=== PATIENT | male | born 1965 | race Caucasian/White ===

== ENCOUNTER → 2016-10-28 | Outpatient (CLI) | payer BC, OTHER ==
[~2016-10-28] MED LIST: CHOL400T PO; DEXL60CA4 PO; DOXE10CA PO; LISI-461 PO; SENN-61 PO; TRAM-10 PO
--- NOTE | 2016-10-28 09:56 | DIAGNOSTIC IMAGING REPORT ---
RIGHT SHOULDER MIN 2 VIEWS CLINICAL HISTORY: Right shoulder pain. No known injury. COMPARISON: Right shoulder radiographs May 09, 2016 FINDINGS: Incidental note is made of an anterior cervical spine fusion and a small sclerotic focus within the right humeral head. This is unchanged from exam of May 09, 2016 and likely reflects a bone island. There is a healed fracture of the posterior right seventh rib. No acute fracture or suspicious lesion is identified. There is moderate AC joint arthritis and mild glenohumeral joint arthritis. IMPRESSION: 1. 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 2. No acute fracture. Electronically signed by: Christopher Beverly M.D. 10/28/2016 9:54 AM
== END | disposition home or self-care (01) ==
LOC: C.RDSM 06:59
PROVIDERS: ATTEND Physical Medicine & Rehabilitation Sports Medicine
DX: M25.511 Pain in right shoulder (principal); M19.011 Primary osteoarthritis, right shoulder

== ENCOUNTER → 2016-12-10 | Outpatient (CLI) | payer BC, OTHER ==
[~2016-12-10] MED LIST changes: +MAGNEVIST IV PRN
--- NOTE | 2016-12-10 12:35 | DIAGNOSTIC IMAGING REPORT ---
FLUOROSCOPIC GUIDED RIGHT SHOULDER ARTHROGRAM FLUOROSCOPY TIME: 14 seconds HISTORY: Shoulder pain. RIGHT SHOULDER PAIN, IMPINGMENT SYNDROME Right PROCEDURE: After obtaining written informed consent, the patient was placed supine on the fluoroscopy table. A suitable site for needle insertion was marked using fluoroscopic guidance. The right shoulder was prepped and draped in the usual sterile fashion. 1% lidocaine was used for skin, subcutaneous and deep soft tissue anesthesia. Under intermittent fluoroscopic guidance, a 22 gauge 2.5 inch spinal needle was inserted into the left glenohumeral joint. A total of 14 cc of one-to-one mixture of dilute Magnevist (0.1 cc in 10 cc saline) and Optiray 300 were injected. The needle was then removed. There were no apparent complications. The patient was transported to for further imaging. IMPRESSION: Fluoroscopic-guided shoulder arthrogram without immediate complication. Total injected volume was 14 cc. MR portion of the examination will be dictated separately. Electronically signed by: Sha Valera M.D. 12/10/2016 12:33 PM Dictated Date/Time: 12/10/2016 12:33 PM
--- NOTE | 2016-12-10 13:03 | DIAGNOSTIC IMAGING REPORT ---
MR ARTHROGRAM OF THE RIGHT SHOULDER CLINICAL HISTORY: Right shoulder pain. COMPARISON STUDY: Radiographs of the right shoulder dated 10/28/16. TECHNIQUE: Following the intra-articular administration of gadolinium contrast, MR arthrogram of the right shoulder was performed utilizing various T1 and T2 weighted sequences in the axial, sagittal, coronal planes. The examination is degraded by motion artifact. FINDINGS: Rotator cuff: There is tendinopathy of the supraspinatous tendon. There is a full-thickness tear identified at the musculotendinous junction this is best seen on sagittal image #8 of 21. The tear measures 3.5 mm in AP diameter and length. There is also a full-thickness tear at the leading edge of the supraspinatus tendon. There is tendinopathy with high-grade partial-thickness tearing involving the infraspinatus tendon. A small full-thickness tear is suspected at the leading edge. There is tendinopathy of the subscapularis tendon which appears intact. Teres minor is normal. There is subacromial and subdeltoid bursal fluid. Productive degenerative changes identified at the acromioclavicular articulation. Biceps tendon: The long head of the biceps tendon is normal in signal intensity and located within the bicipital groove. The anchor is maintained. Labrum: There is a SLAP tear of the glenoid labrum. Shoulder joint: The joint space contains intra-articular contrast. The articular cartilage over the glenoid shows only mild thinning. Marrow edema is noted within the mid glenoid. A Hill-Sachs deformity is identified in the humeral head with associated marrow edema. Degenerative change with subchondral cyst formation is present in the greater tuberosity. Musculature and soft tissues: The musculature of the shoulder is normal in bulk and signal intensity. No atrophy is seen. IMPRESSION: 1. There is tendinopathy of the supraspinatous tendon. There are full-thickness tears seen at the musculotendinous junction as well as at the leading edge. No musculotendinous retraction is seen. 2. There is tendinopathy of the infraspinous tendon with a small full-thickness tear seen at the leading edge. 3. There is a SLAP tear of the glenoid labrum. 4. There is an age-indeterminate Hill-Sachs lesion in the humeral head with associated marrow edema and arthritic change. 5. Marrow edema is also identified in the glenoid. 6. Additional changes as above. Electronically signed by: Param Li M.D. 12/10/2016 1:02 PM Dictated Date/Time: 12/10/2016 12:53 PM
== END | disposition home or self-care (01) ==
LOC: C.MRIBC 10:55
PROVIDERS: ATTEND Physical Medicine & Rehabilitation Sports Medicine
DX: M75.41 Impingement syndrome of right shoulder (principal); M25.511 Pain in right shoulder; S43.431A Superior glenoid labrum lesion of right shoulder, initial encounter; S46.011A Strain of muscle(s) and tendon(s) of the rotator cuff of right shoulder, initial encounter; X58.XXXA Exposure to other specified factors, initial encounter

== ENCOUNTER → 2016-12-31 | Outpatient (CLI) | payer BC, OTHER ==
[~2016-12-31] MED LIST changes: -MAGNEVIST IV PRN
[2016-12-31 16:43] LABS: BASO % 0.9 %; BASO ABS # 0.07 K/uL (0-0.2); COMPLETE YES; IG% 0.1 %; LYMPH % 34.7 %; LYMPH ABS # 2.66 K/uL (1.2-3.4); MEAN CELL VOLUME 82.8 fL (80-100); MEAN CORPUSCULAR HEMOGLOBIN 27.8 pg (25-34); MEAN CORPUSCULAR HGB CONC 33.6 g/dl (32-36); MEAN PLATELET VOLUME 10.1 fL (7.4-10.4); NEUT % 51.3 %; PLATELET COUNT 291 K/uL (130-400); RED BLOOD COUNT 4.35 M/uL (4.7-6.1); WHITE BLOOD COUNT 7.67 K/uL (4.8-10.8)
[2016-12-31 17:05] LABS: BLOOD UREA NITROGEN 11 mg/dl (7-18); BUN/CREATININE RATIO 14.3 (10-20); CALCIUM 8.9 mg/dl (8.5-10.1); CARBON DIOXIDE 24 mmol/L (21-32); CHLORIDE 104 mmol/L (98-107); CREATININE 0.75 mg/dl (0.60-1.40); GLUCOSE 86 mg/dl (70-99); POTASSIUM 4.2 mmol/L (3.5-5.1); SODIUM 139 mmol/L (136-145)
== END | disposition home or self-care (01) ==
LOC: C.LAB1850 15:54
PROVIDERS: ATTEND Physical Medicine & Rehabilitation Sports Medicine
DX: M75.121 Complete rotator cuff tear or rupture of right shoulder, not specified as traumatic (principal)

== ENCOUNTER → 2016-12-31 | Outpatient (CLI) | payer BC, OTHER ==
--- NOTE | 2016-12-31 15:52 | DIAGNOSTIC IMAGING REPORT ---
TWO VIEW CHEST CLINICAL HISTORY: Preoperative examination. FINDINGS: PA and lateral chest radiographs are compared to study dated 09/12/2016 and correlated with chest CT dated 09/19/2015. The cardiomediastinal silhouette is unremarkable. Mild emphysematous change and chronic interstitial thickening are similar to previous. No airspace consolidation or pleural effusion is identified. There is no pneumothorax. The skeletal structures are osteopenic. Degenerative change is seen throughout the thoracic spine. Fusion hardware is noted in the lower cervical spine. Surgical clips are present in the upper abdomen. IMPRESSION: No active disease in the chest. Electronically signed by: Param Li M.D. 12/31/2016 3:50 PM Dictated Date/Time: 12/31/2016 3:49 PM
== END | disposition home or self-care (01) ==
LOC: C.RDSM 15:40
PROVIDERS: ATTEND Physical Medicine & Rehabilitation Sports Medicine
DX: M75.121 Complete rotator cuff tear or rupture of right shoulder, not specified as traumatic (principal)

== ENCOUNTER → 2017-01-14 | Day surgery (SDC) | payer BC, OTHER ==
[2017-01-03 12:28] VITALS: Ht 182.9 cm; Wt 79.5 kg
[~2017-01-14] VITALS: Ht 182.9 cm; Wt 79.5 kg
[~2017-01-14] MED LIST changes: +ATROPINE SULFATE 0.1 MG/ML 5ML SYR IV PRN; +CEFAZOLIN 2000 MG/60 ML D5W IV SCH; +DEXAMETHASONE SOD INJ 4 MG/ML VIAL IV PRN; +DEXAMETHASONE SOD INJ 4 MG/ML VIAL ONE; +EpHEDrine SULFATE INJ 50 MG/ML AMP IV PRN; +EpINEphrine INJ 1MG/ML AMP 1 MG/ML AMP ONE; +FENTANYL CITRATE INJ 50 MCG/1 ML 2 ML VIAL ONE; +GLYCOPYRROLATE INJ 0.2 MG/ML VIAL ONE; +KETOROLAC TROMETHAMINE 30 MG/ML VIAL IV. PRN; +LABETALOL HCL IV 5 MG/ML 20ML IV PRN; +LACTATED RINGER'S 1000ML 1,000 ML IV SCH; +LIDOCAINE HCL 1% MPF 2 ML VIAL ONE; +LIDOCAINE HCL 2% 2 ML VIAL (20MG/ML) ONE; +METOCLOPRAMIDE HCL INJ 5 MG/ML 2 ML VIAL IV PRN; +MIDAZOLAM HCL 1 MG/ML 2ML VIAL ONE; +MoRPHine SULFATE 10 MG/ML CARP/VIAL IV PRN; +ONDANSETRON INJ 2 MG/ML 2 ML VIAL IV PRN; +ONDANSETRON INJ 2 MG/ML 2 ML VIAL ONE; +OXYCODONE/ACETAMINOPHEN 5-325 TAB PO PRN; +PHENYLEPHRINE 100MCG/ML 5ML SYR IV PRN; +PHENYLEPHRINE HCL INJ 10 MG/ML VIAL ONE; +PROPOFOL IV EMULSION 10 MG/ML 20 ML VIAL IV ONE; +ROPIVACAINE 0.5% 5 MG/ML 30 ML VIAL ONE; +SODIUM CHLORIDE 0.9% 1000ML 1,000 ML IV SCH
--- NOTE | 2017-01-14 08:09 | History & Physical Bridge Note ---
H&P Re-Evaluation Bridge Note: I have examined the patient, reviewed the History & Physical and in the interval since the performance of the History & Physical I have noted the following changes of clinical significance: No changes noted
--- NOTE | 2017-01-14 08:10 | Discharge Instructions ---
Discharge Instructions Date of Service Jan 14, 2017. Visit Reason for Visit: Right Shoulder Rotator Cuff Tear Discharge Discharge Diagnosis / Problem: same Discharge Goals Goal(s): Decrease discomfort, Improve function Medications Stopped Medications Name(s): na Restart Stopped Medication(s): use scripts as directed Activity Recommendations Activity Limitations: as noted below Lifting Limitations: until after follow-up appointment Exercise/Sports Limitations: until after follow-up appointment May Resume Sexual Activity: when tolerated Shower/Bathe: keep incision dry Driving or Machine Use: Anesthesia The following are instructions to follow after "Shoulder Surgery" including, Acromioplasty, Rotator Cuff Repair and Instability Surgery ACTIVITY RECOMMENDATIONS: * Minimize activity after surgery. * No excessive walking, jogging, sports or laboring. * Return to activity is individualized depending on the patient and type of surgery. * Driving is not permitted until at least your first post operative visit. Please ask your doctor when it is safe to resume driving. * Expect increased discomfort with increased activity. Continue to ice the shoulder as needed. SCHOOL/WORK RECOMMENDATIONS: * You may return to sedentary work or school when you are feeling more comfortable. This is usually 3-7 days after surgery. MEDICATIONS: * You will have a prescription for pain medication and an anti-inflammatory medication after surgery. * Use the pain medication for severe pain and the anti-inflammatory for less severe pain. Once the pain medication has run out, try to use the anti-inflammatory medication. If this is not effective, contact the office for assistance. * The pain medication may cause nausea, constipation and drowsiness. You should see how they affect you before driving or similar activity. * The anti-inflammatory medication may cause stomach upset and bleeding. If this occurs let your doctor know immediately . * Take a stool softener like Colace or a laxative like Senokot to prevent constipation. DIET: * Resume previous diet. SPECIAL CARE: ICE: You have the option of an ice cooler, gel packs or ice bags. * If you have an ice cooler, refer to the instructions for that device. The ice cooler may be used continuously. * If you do not have an ice cooler, you will need to use ice bags or gel packs. Do not apply ice directly to the skin. Use a thin dressing or belen shirt between the skin and ice bag. Apply ice for 20-30 minutes and repeat every 2-4 hours. This is especially important for the first 7-10 days after surgery. Once the pain improves, use ice as needed. ELEVATION: * You may be more comfortable sleeping in an upright position. Use the sling to elevate your arm. DRESSING: * Your dressing will be changed at your first therapy appointment approximately 4-5 days after surgery. Band-aids, tape strips or gauze may be applied. You may then change your dressing daily. * Reapply dressing followed by the EBIce cooling pad (if chosen) and then the sling. * Always wash your hands prior to touching the incision area. * Once the stitches are removed, you may leave the wound open to air or cover with gauze. * Expect some bloody drainage for the first few days after surgery. * Leave the tape strips, if present, in place for 5-7 days. * Band-aids and gauze may be changed daily. * There may be a gauze pad in your armpit area. This can be changed daily or replaced by a dry washcloth. SLING/BRACE: * You will need to use a sling or brace after surgery. The length of time the sling is used is dependent upon the type of surgery performed. * Arthroscopic Acromioplasty requires use of the sling for 2-4 weeks for comfort. * Labral procedures and Rotator Cuff Repairs require use of the sling for a longer period of time. Please check with your doctor prior to discontinuing the sling. BATHING: * You may shower or sponge-bathe immediately after surgery. The post operative shoulder dressing is mostly water-tight. You may shower right over this dressing, but be reasonably careful not to get the gauze or incision wet. * Once the dressing has been changed on the fourth or fifth day after surgery, you may shower and get the incision wet. * Wash with regular soap and water. * Do not bathe (submerge the incision), soak, swim or use a hot tub until the incision is completely healed over with normal skin and the doctor has given the OK to proceed. * There is no need to apply any ointments, powders or salves to your incision. * Do not apply alcohol or hydrogen peroxide directly to the incision. * Diluted peroxide (50:50 mixture with sterile saline) may be used to clean dried blood from around the incision area. THERAPY: * You will begin therapy four or five days after surgery. * Organized therapy with the therapist is important for the first 2-4 months after surgery depending on the type of procedure. During that time you will attend therapy 1-3 times per week. * You will also need to do daily exercises for range of motion and strength as instructed. * Patients who have a Capsular Shift Procedure will need to abide by temporary range of motion limitations. * Patients having Rotator Cuff Surgery are not allowed to actively lift their arms until 4-6 weeks after surgery. * Please check with your doctor regarding appropriate motion restrictions. FOLLOW UP VISIT: * If not already scheduled, please call the office at to schedule a follow-up appointment for 10 days after surgery and monthly thereafter. . Post Anesthesia Instructions: If you have had General Anesthesia or IV Sedation: * Do not drive today. * Resume driving when surgeon permits. * Do not make important decisions or sign legal documents today. * Call surgeon for: 1. Temperature elevations greater than 101 degrees F. 2. Uncontrollable pain. 3. Excessive bleeding. 4. Persistent nausea and vomiting. 5. Medication intolerance (nausea, vomiting or rash). * For nausea and vomiting use only clear liquids such as: tea, soda, bouillon until nausea subsides, then gradually increase diet as tolerated. * If you have any concerns or questions, call your surgeon's office. If physician is unavailable and it is an emergency, call 911 or go to the nearest emergency room. . Diet Recommendations Recommended Home Diet: resume previous diet Procedures Procedures Performed: see op note Pending Studies Studies pending at discharge: no Medical Emergencies . Who to Call and When: Medical Emergencies: If at any time you feel your situation is an emergency, please call 911 immediately. . Non-Emergent Contact Non-Emergency issues call your: Specialist Call Non-Emergent contact if: temperature is above 101.5 . . "Provider Documentation" section prepared by Hiro Gomez.
--- NOTE | 2017-01-14 11:08 | [facility] Post Operative Brief Note ---
Immediate Operative Summary Operative Date Jan 14, 2017. Pre-Operative Diagnosis Right Shoulder Rotator Cuff Tear Post-Operative Diagnosis Same Procedure(s) Performed Right Shoulder Arthroscopic Rotator Cuff Repair, Subacromial Decompression Surgeon Dr. Gomez Grout Machine Operator Surgeon(s) Shlomo Sears PA-C Estimated Blood Loss trace Findings cuff tear /impingement/biceps tendonopathy with slap Fluids (cc crystalloids) 1200cc Specimens None Drains none Anesthesia LMA/block Complication(s) None Disposition Recovery Room / PACU
--- NOTE | 2017-01-14 11:45 | OPERATIVE REPORT ---
DATE OF OPERATION: 01/14/2017 SURGEON: Jason. BACK HAND: Buck Sears PA-C. No resident or fellow available. PREOPERATIVE DIAGNOSIS: Recurrent rotator cuff syndrome, right shoulder. POSTOPERATIVE DIAGNOSES: 1. Same. 2. Chronic biceps tendinopathy with large SLAP tear. 3. Impingement syndrome. OPERATION PERFORMED: 1. Exam under anesthesia. 2. Diagnostic arthroscopy. 3. Debridement of high grade PASTA lesion conversion to well full thickness tear, small and repair. 4. Biceps tenotomy. 5. Revision subacromial decompression. PERIOPERATIVE SITUATION: Medically cleared male with intractable shoulder pain with physical exam, x-ray and MRI scan consistent with tendinopathy, small tear of the rotator cuff, biceps SLAP type lesion and anterior labral degeneration. He has failed conservative management and would like to proceed with surgical treatment. He had a surgery done over a decade ago. OPERATION: The patient appropriately identified, site verified, consent verified, 2 grams of Ancef confirmed as being given. The shoulder was examined revealing no ligamentous instability. He was then carefully placed in a beach chair position and right upper extremity prepped and draped in usual routine fashion. A posterior portal made in the previous site 2 cm medial and inferior to posterolateral tip of the acromion joint entered without difficulty and anterior portal made off the edge of the AC joint. Inspection of the joint revealed significant biceps tenosynovitis and a large biceps anchor root type SLAP tear. This was all debrided. The biceps was markedly unstable, it was tenotomized and had that done on the opposite side and agreed to have that procedure done despite the cosmetic deformity. He did well with that and wanted to have the same thing done. This was completed. The remaining labrum was then contoured with the shaver and a thermal device. The rotator cuff was then inspected, the supraspinatus had a tear approximately a centimeter posterior to its most anterior margin, it was a high grade PASTA lesion and was debrided, marked with a suture. The remaining inspection of the joint and internally revealed no other pathology; some minor fraying here and there, but this was instantly debrided. Subacromial space was then entered. Some scarring was there apart from the prior procedure, this was carefully debrided and the suture identified. This area was then touched with a shaver completely and almost completely went into the remaining part of the tendon and then into the joint. This was then ellipticized and debrided creating about a centimeter tear was then mobilized nicely. The area of the attachment was then debrided to bone with a curette and a shaver. An accessory 2 portals were then made and using the scorpion the 2 sutures were placed in the tendon and a 5.5 anchor placed and secured the rotator cuff back down to the bone in an excellent fashion. The arm was then moved through a full range of motion and there was no additional mobility or tendon was identified. The remaining bursa was then resected, the CA ligament which was hypertrophic was released with thermal device and a revision acromioplasty performed in a modest fashion. The AC joint was left alone. The procedure was then terminated. All instruments and fluid removed. The portals closed with 3-0 nylon suture, dressed appropriately with Xeroform, 4 x 4 gauze, ABD pads and Ioban dressing. Estimated blood loss trace. Crystalloid 1200 mL. No DVT prophylaxis required. Overall prognosis for this is guarded based on history of comorbidities medically. I attest to the content of the Intraoperative Record and any orders documented therein. Any exceptions are noted below. CHANTELD
[2017-01-14] MEDS: FENTANYL CITRATE INJ 50 MCG/1 ML 2 ML VIAL IV PRN ×2 (11:48→11:58)
[2017-01-14 12:17] VITALS: TEMP 36.3
[2017-01-14 12:48] VITALS: BP 117/74; PULSE 86; O2SAT 98
--- NOTE | 2017-01-14 12:52 | Anesthesia Progress Nt - [facility] ---
Anesthesia Post Op Note Date & Time Jan 14, 2017 at 12:53 Vital Signs Pain Intensity: 3.0 Vital Signs Past 12 Hours Date Time Temp Pulse Resp B/P Pulse Ox O2 Delivery O2 Flow Rate FiO2 01/14/17 12:48 86 16 117/74 98 Room Air 01/14/17 12:17 36.3 73 16 120/76 96 Room Air 01/14/17 12:05 70 12 01/14/17 12:05 69 12 117/79 95 01/14/17 12:04 36.7 70 16 117/79 94 Room Air 01/14/17 12:00 71 17 01/14/17 12:00 72 17 116/83 95 01/14/17 11:55 69 12 121/77 94 01/14/17 11:55 69 12 01/14/17 11:50 71 15 91/88 99 01/14/17 11:50 70 15 01/14/17 11:45 73 14 01/14/17 11:45 73 14 120/76 99 01/14/17 11:40 70 14 100 01/14/17 11:40 70 14 01/14/17 11:39 116/74 01/14/17 11:38 67 11 100 01/14/17 11:38 67 11 01/14/17 11:34 107/68 01/14/17 11:33 66 11 01/14/17 11:33 66 11 100 01/14/17 11:29 111/69 01/14/17 11:28 68 10 01/14/17 11:28 68 10 100 01/14/17 11:24 121/74 01/14/17 11:23 36.6 80 16 124/80 99 Diffusion Mask 6 01/14/17 11:23 72 10 124/80 100 01/14/17 11:23 73 10 01/14/17 09:55 72 11 99 01/14/17 09:55 71 01/14/17 09:54 124/74 01/14/17 09:50 73 10 99 01/14/17 09:50 73 01/14/17 09:49 116/71 01/14/17 09:46 72 10 99 01/14/17 09:46 72 01/14/17 09:44 111/71 01/14/17 09:41 80 19 97 01/14/17 09:41 81 01/14/17 09:40 83 01/14/17 09:40 83 13 99 01/14/17 09:39 129/91 01/14/17 09:35 79 20 99 01/14/17 09:35 79 01/14/17 09:30 76 01/14/17 09:30 76 21 99 01/14/17 08:30 37.0 76 18 110/72 96 Room Air Notes Mental Status: alert / awake / arousable, participated in evaluation Pt Amnestic to Procedure: Yes Nausea / Vomiting: adequately controlled Pain: adequately controlled Airway Patency, RR, SpO2: stable & adequate BP & HR: stable & adequate Hydration State: stable & adequate Anesthetic Complications: no major complications apparent
--- NOTE | 2017-01-14 13:05 | OPERATIVE REPORT ---
DATE OF OPERATION: 01/14/2017 PREOPERATIVE DIAGNOSIS: Right shoulder rotator cuff tear. POSTOPERATIVE DIAGNOSIS: Right shoulder same with biceps tendinopathy. PROCEDURE: Right shoulder arthroscopy, rotator cuff repair, subacromial decompression, and biceps tenotomy. SURGEON: Dr. Gomez. AUTOMATION TEST DEVELOPER: Buck Sears PA-C. HISTORY OF PRESENT ILLNESS: This 51-year-old white male presented to the office with complaints of right shoulder pain. He had tried conservative care measures including physical therapy, activity modification, oral anti-inflammatories, oral pain medication, and cortisone injection without lasting relief. X-ray and MRI were obtained. He elected to proceed with surgical intervention after being educated about potential risks and outcomes. OPERATION: The patient was administered a regional block and then taken to the operating room where he was given general anesthetic. He was prepped and draped in the usual sterile fashion. Please see Dr. Gomez's operative report for specifics of the procedure. I was present for the entire case from initial patient positioning through final wound closure. Assistance was provided in patient positioning, arthroscopy, hardware placement, and final wound closure. The patient was taken to the recovery room in satisfactory condition. I attest to the content of the Intraoperative Record and any orders documented therein. Any exceptio ns are noted below.
== END | disposition home or self-care (01) ==
LOC: X.SURG 07:56
PROVIDERS: ATTEND Physical Medicine & Rehabilitation Sports Medicine
DX: M75.101 Unspecified rotator cuff tear or rupture of right shoulder, not specified as traumatic (principal); M75.41 Impingement syndrome of right shoulder; M75.21 Bicipital tendinitis, right shoulder; S43.431A Superior glenoid labrum lesion of right shoulder, initial encounter; W11.XXXA Fall on and from ladder, initial encounter; I10 Essential (primary) hypertension; K21.9 Gastro-esophageal reflux disease without esophagitis; M19.90 Unspecified osteoarthritis, unspecified site; N40.0 Benign prostatic hyperplasia without lower urinary tract symptoms; Z87.442 Personal history of urinary calculi; Z85.01 Personal history of malignant neoplasm of esophagus; Z92.21 Personal history of antineoplastic chemotherapy; Z90.49 Acquired absence of other specified parts of digestive tract; Z82.49 Family history of ischemic heart disease and other diseases of the circulatory system; Z80.1 Family history of malignant neoplasm of trachea, bronchus and lung

== ENCOUNTER → 2017-03-03 | Outpatient (CLI) | payer BC, OTHER ==
[~2017-03-03] MED LIST changes: -ATROPINE SULFATE 0.1 MG/ML 5ML SYR IV PRN; -CEFAZOLIN 2000 MG/60 ML D5W IV SCH; -DEXAMETHASONE SOD INJ 4 MG/ML VIAL IV PRN; -DEXAMETHASONE SOD INJ 4 MG/ML VIAL ONE; -EpHEDrine SULFATE INJ 50 MG/ML AMP IV PRN; -EpINEphrine INJ 1MG/ML AMP 1 MG/ML AMP ONE; -FENTANYL CITRATE INJ 50 MCG/1 ML 2 ML VIAL ONE; -GLYCOPYRROLATE INJ 0.2 MG/ML VIAL ONE; -KETOROLAC TROMETHAMINE 30 MG/ML VIAL IV. PRN; -LABETALOL HCL IV 5 MG/ML 20ML IV PRN; -LACTATED RINGER'S 1000ML 1,000 ML IV SCH; -LIDOCAINE HCL 1% MPF 2 ML VIAL ONE; -LIDOCAINE HCL 2% 2 ML VIAL (20MG/ML) ONE; -METOCLOPRAMIDE HCL INJ 5 MG/ML 2 ML VIAL IV PRN; -MIDAZOLAM HCL 1 MG/ML 2ML VIAL ONE; -MoRPHine SULFATE 10 MG/ML CARP/VIAL IV PRN; -ONDANSETRON INJ 2 MG/ML 2 ML VIAL IV PRN; -ONDANSETRON INJ 2 MG/ML 2 ML VIAL ONE; -OXYCODONE/ACETAMINOPHEN 5-325 TAB PO PRN; -PHENYLEPHRINE 100MCG/ML 5ML SYR IV PRN; -PHENYLEPHRINE HCL INJ 10 MG/ML VIAL ONE; -PROPOFOL IV EMULSION 10 MG/ML 20 ML VIAL IV ONE; -ROPIVACAINE 0.5% 5 MG/ML 30 ML VIAL ONE; -SODIUM CHLORIDE 0.9% 1000ML 1,000 ML IV SCH
== END | disposition home or self-care (01) ==
LOC: C.RDSM 11:47
PROVIDERS: ATTEND Physical Medicine & Rehabilitation Sports Medicine
DX: Z09 Encounter for follow-up examination after completed treatment for conditions other than malignant neoplasm (principal); M25.511 Pain in right shoulder; Z98.890 Other specified postprocedural states

== ENCOUNTER → 2017-03-07 | Outpatient (CLI) | payer BC, OTHER ==
[~2017-03-07] VITALS: Ht 182.9 cm; Wt 75.6 kg
[2017-03-07 16:17] VITALS: BP 119/83; PULSE 88; Ht 182.9 cm; Wt 75.6 kg
== END | disposition home or self-care (01) ==
LOC: C.NEUR 15:33
PROVIDERS: ATTEND Internal Medicine Pulmonary Disease
DX: G47.00 Insomnia, unspecified (principal); G47.61 Periodic limb movement disorder

== ENCOUNTER → 2017-03-29 | Outpatient (CLI) | payer BC, OTHER ==
[2017-03-29 09:19] LABS: BASO % 0.4 %; BASO ABS # 0.03 K/uL (0-0.2); COMPLETE YES; EOS % 1.7 %; HEMATOCRIT 39.5 % (42-52); IG% 0.3 %; LYMPH % 27.8 %; LYMPH ABS # 2.09 K/uL (1.2-3.4); MEAN CORPUSCULAR HGB CONC 32.2 g/dl (32-36); MONO % 10.9 %; NEUT % 58.9 %; PLATELET COUNT 301 K/uL (130-400); WHITE BLOOD COUNT 7.53 K/uL (4.8-10.8)
[2017-03-29 09:52] LABS: ALT/SGPT 18 U/L (12-78); AST/SGOT 15 U/L (15-37); BLOOD UREA NITROGEN 10 mg/dl (7-18); CALCIUM 8.5 mg/dl (8.5-10.1); CARBON DIOXIDE 30 mmol/L (21-32); CHLORIDE 105 mmol/L (98-107); CHOLESTEROL 195 mg/dl (0-200); CREATININE 0.87 mg/dl (0.60-1.40); GLUCOSE 92 mg/dl (70-99); POTASSIUM 4.2 mmol/L (3.5-5.1); SODIUM 140 mmol/L (136-145)
[2017-03-29 09:58] LABS: ESTIMATED AVERAGE GLUCOSE 128 mg/dl; HA1C FLAG Normal (Normal)
[2017-03-29 10:03] LABS: ALKALINE PHOSPHATASE 85 U/L (45-117); CHOLESTEROL/HDL RATIO 1.9; HDL CHOLESTEROL 101 mg/dl; LDL CHOLESTEROL CALCULATED 83 mg/dl; TRIGLYCERIDES 56 mg/dl (0-150); VERY LOW DENSITY LIPOPROT CALC 11 mg/dl
== END | disposition home or self-care (01) ==
LOC: C.LAB 08:19
PROVIDERS: ATTEND Internal Medicine
DX: R73.01 Impaired fasting glucose (principal)

== ENCOUNTER → 2017-09-29 | Outpatient (CLI) | payer BC, OTHER ==
[2017-09-29 17:34] LABS: BASO % 0.7 %; BASO ABS # 0.06 K/uL (0-0.2); COMPLETE YES; EOS % 1.3 %; HEMATOCRIT 35.4 % (42-52); IG% 0.1 %; LYMPH % 35.4 %; LYMPH ABS # 3.16 K/uL (1.2-3.4); MEAN CELL VOLUME 83.5 fL (80-100); MEAN CORPUSCULAR HEMOGLOBIN 26.9 pg (25-34); MEAN CORPUSCULAR HGB CONC 32.2 g/dl (32-36); MEAN PLATELET VOLUME 10.5 fL (7.4-10.4); MONO % 8.8 %; NEUT % 53.7 %; PLATELET COUNT 327 K/uL (130-400); RED BLOOD COUNT 4.24 M/uL (4.7-6.1); WHITE BLOOD COUNT 8.93 K/uL (4.8-10.8)
[2017-09-29 18:05] LABS: ALT/SGPT 19 U/L (12-78); AST/SGOT 14 U/L (15-37); BLOOD UREA NITROGEN 12 mg/dl (7-18); BUN/CREATININE RATIO 12.6 (10-20); CARBON DIOXIDE 27 mmol/L (21-32); CHLORIDE 104 mmol/L (98-107); CHOLESTEROL 215 mg/dl (0-200); CREATININE 0.92 mg/dl (0.60-1.40); GLUCOSE 92 mg/dl (70-99); SODIUM 137 mmol/L (136-145); TRIGLYCERIDES 119 mg/dl (0-150); VERY LOW DENSITY LIPOPROT CALC 24 mg/dl
[2017-09-29 18:14] LABS: ALB/GLOB RATIO 0.9 (0.9-2); ALKALINE PHOSPHATASE 95 U/L (45-117); HDL CHOLESTEROL 109 mg/dl; LDL CHOLESTEROL CALCULATED 82 mg/dl; TOTAL IRON BINDING CAPACITY 446 mcg/dl (250-450)
[2017-09-30 07:52] LABS: ESTIMATED AVERAGE GLUCOSE 131 mg/dl; HA1C FLAG Normal (Normal)
== END | disposition home or self-care (01) ==
LOC: C.LABBFT 14:18
PROVIDERS: ATTEND Internal Medicine
DX: R73.01 Impaired fasting glucose (principal); D64.9 Anemia, unspecified; Z12.5 Encounter for screening for malignant neoplasm of prostate

== ENCOUNTER → 2017-12-08 | Outpatient (CLI) | payer OTHER ==
[~2017-12-08] MED LIST changes: +FERR27TA5
--- NOTE | 2017-12-08 14:58 | DIAGNOSTIC IMAGING REPORT ---
CHEST 2 VIEWS ROUTINE CLINICAL HISTORY: 52 years-old Male presenting with R06.02 Shortness of breath on [id number]. TECHNIQUE: PA and lateral views of the chest were obtained. COMPARISON: 12/31/2016. FINDINGS: Cardiomediastinal silhouette normal. Lungs and pleural spaces clear. Partially visualized anterior cervical fusion hardware. Cholecystectomy clips noted. Numerous surgical clips also project over the posterior mediastinum and epigastrium from prior esophagectomy and gastric pull-through. IMPRESSION: 1. No acute cardiopulmonary disease. Electronically signed by: Hunter Cummins M.D. 12/08/2017 2:57 PM Dictated Date/Time: 12/08/2017 2:55 PM
[2017-12-08 15:37] LABS: BASO % 0.4 %; BASO ABS # 0.04 K/uL (0-0.2); EOS % 1.5 %; EOS ABS # 0.17 K/uL (0-0.5); HEMATOCRIT 39.8 % (42-52); IG# 0.02 K/uL (0.00-0.02); LYMPH % 27.6 %; MEAN CELL VOLUME 84.9 fL (80-100); MEAN CORPUSCULAR HEMOGLOBIN 27.7 pg (25-34); MEAN CORPUSCULAR HGB CONC 32.7 g/dl (32-36); MEAN PLATELET VOLUME 10.4 fL (7.4-10.4); MONO % 8.8 %; MONO ABS # 0.99 K/uL (0.11-0.59); NEUT % 61.5 %; NEUT ABS # 6.92 K/uL (1.4-6.5); PLATELET COUNT 283 K/uL (130-400); RED CELL DISTRIBUTION WIDTH CV 16.8 % (11.5-14.5); RED CELL DISTRIBUTION WIDTH SD 52.4 fL (36.4-46.3); WHITE BLOOD COUNT 11.24 K/uL (4.8-10.8)
[2017-12-08 16:05] LABS: ALBUMIN 3.7 gm/dl (3.4-5.0); ALT/SGPT 25 U/L (12-78); AST/SGOT 18 U/L (15-37); BLOOD UREA NITROGEN 10 mg/dl (7-18); CALCIUM 8.9 mg/dl (8.5-10.1); CARBON DIOXIDE 27 mmol/L (21-32); CREATININE 0.96 mg/dl (0.60-1.40); GLUCOSE 58 mg/dl (70-99); SODIUM 137 mmol/L (136-145)
[2017-12-08 16:08] LABS: ALKALINE PHOSPHATASE 95 U/L (45-117); TOTAL PROTEIN 7.5 gm/dl (6.4-8.2); TRANSFERRIN 330 mg/dl (200-360)
== END | disposition home or self-care (01) ==
LOC: C.RAD1850 14:37
PROVIDERS: ATTEND Physician Assistant Medical
DX: R06.02 Shortness of breath (principal)

== ENCOUNTER → 2018-01-05 | Outpatient (CLI) | payer OTHER | END | disposition home or self-care (01) | LOC: C.LABBFT 15:58 | PROVIDERS: ATTEND Physician Assistant Medical | DX: R19.7 Diarrhea, unspecified (principal) ==

== ENCOUNTER → 2018-01-30 | Day surgery (SDC) | payer OTHER ==
[2018-01-16 13:21] VITALS: Ht 182.9 cm; Wt 77.3 kg
[~2018-01-30] VITALS: Ht 182.9 cm; Wt 77.3 kg
[~2018-01-30] MED LIST changes: +ALBU18002 INH; +FERR1TAB23 PO; -FERR27TA5; +LIDOCAINE HCL 2% 2 ML VIAL (20MG/ML) ONE; +MIDAZOLAM HCL 1 MG/ML 2ML VIAL ONE; +PROPOFOL IV EMULSION 10 MG/ML 20 ML VIAL IV ONE; +SODIUM CHLORIDE 0.9% 500ML 500 ML IV ONE
--- NOTE | 2018-01-30 12:38 | Endo History and Physical ---
History & Physical Date of Service: Jan 30, 2018. Chief Complaint: Anemia, History of esophageal cancer, Dysphagia Referring Physician: Dr. Boucher History of Present Illness 52 yo CM who presents for colonoscopy secondary to anemia and EGD secondary to anemia, history of esophageal cancer and esophageal dysphagia. Past Medical History Cancer, Hypertension Past Surgical History Hx Cardiac Surgery: No Hx Internal Defibrillator: No Hx Pacemaker: No Hx Abdominal Surgery: Yes (LAP VINCE) Hx of Implantable Prosthesis: No Hx Post-Op Nausea and Vomiting: No Hx Cancer Surgery: Yes (ESOPHAGECTOMY) Hx Thoracic Surgery: No Hx Orthopedic: Yes (CERVICAL FUSION, RT/LEFT RCR, RT/LEFT KNEE ARTHROSCOPY) Hx Urinary Tract Surgery: No Family History None Social History Smoking Status: Former Smoker Hx Substance Use: No Hx Alcohol Use: No Allergies Coded Allergies: No Known Allergies (Verified , 01/16/18) Current Medications Reported Home Medications Medications Dose Route/Sig Max Daily Dose Days Date Category Proair Respiclick (Albuterol Sulfate) 108 Mcg/Act Aer 1-2 Puff INH Q4H PRN 01/16/18 Reported Iron (Ferrous Sulfate) 325 Mg Tab 1 Tab PO QAM 01/16/18 Reported Senokot (Senna) 8.6 Mg Tab 1 Tab PO DAILY PRN 11/14/16 Reported Vitamin D (Cholecalciferol) 400 Unit Tab 1 Tab PO QAM 08/12/16 Reported Ultram (Tramadol HCl) 50 Mg Tab 50 Mg PO Q8H PRN 05/08/16 Reported Sinequan (Doxepin HCl) 10 Mg Cap 30 Mg PO HS PRN 02/05/16 Reported Zestril (Lisinopril) 10 Mg Tab 10 Mg PO QAM 08/18/15 Reported Dexilant (Dexlansoprazole) 60 Mg Cap 60 Mg PO QAM 05/13/14 Reported Vital Signs Weight (Kilograms): 77.27 Height (Feet): 6 Height (Inches): 0 Physical Exam General Appearance: WD/WN, no apparent distress Respiratory/Chest: Auscultation: breath sounds normal Cardiovascular: Heart Auscultation: RRR Abdomen: Bowel Sounds: normal Inspection & Palpation: soft, non-distended, no tenderness, guarding & rebound Assessment and Plan Assessment: 52 yo CM who presents for colonoscopy secondary to anemia and EGD secondary to anemia, history of esophageal cancer and esophageal dysphagia. Plan: Proceed with EGD.
[2018-01-30 12:39] VITALS: TEMP 37.2
--- NOTE | 2018-01-30 13:41 | Discharge Instructions ---
Endoscopy Patient Instructions Date / Procedure(s) Performed Jan 30, 2018. Colonoscopy, EGD Allergy Information Coded Allergies: No Known Allergies (Verified , 01/16/18) Discharge Date / Findings Jan 30, 2018. EGD: Esophageal biopsies Colonoscopy: Poor prep, Internal hemorrhoids Medication Instructions OK to resume all medications today as prescribed Reported Home Medications Medications Dose Route/Sig Max Daily Dose Days Date Category Proair Respiclick (Albuterol Sulfate) 108 Mcg/Act Aer 1-2 Puff INH Q4H PRN 01/16/18 Reported Iron (Ferrous Sulfate) 325 Mg Tab 1 Tab PO QAM 01/16/18 Reported Senokot (Senna) 8.6 Mg Tab 1 Tab PO DAILY PRN 11/14/16 Reported Vitamin D (Cholecalciferol) 400 Unit Tab 1 Tab PO QAM 08/12/16 Reported Ultram (Tramadol HCl) 50 Mg Tab 50 Mg PO Q8H PRN 05/08/16 Reported Sinequan (Doxepin HCl) 10 Mg Cap 30 Mg PO HS PRN 02/05/16 Reported Zestril (Lisinopril) 10 Mg Tab 10 Mg PO QAM 08/18/15 Reported Dexilant (Dexlansoprazole) 60 Mg Cap 60 Mg PO QAM 05/13/14 Reported Provider Instructions Activity Restrictions - No exercising or heavy lifting for 24 hours. - Do not drink alcohol the day of the procedure. - Do not drive a car or operate machinery until the day after the procedure. - Do not make any important decisions or sign important papers in 24 hours after the procedure. Following Day: - Return to full activity which may include returning to work/school. Diet Start your diet with liquids and light foods (jello, soup, juice, toast). Then eat your usual diet if not nauseated. Treatment For Common After Affects For mild abdominal pain, bloating, or excessive gas: - Rest - Eat lightly - Lie on right side Follow-Up Information Follow-up with Dr. Rafiq Boucher as scheduled Anesthesia Information What You Should Know You have had a procedure that required some medicine to reduce anxiety and discomfort. This treatment is called moderate sedation. After receiving the treatment, you may be sleepy, but you will be able to breathe on your own. The effects of the treatment may last for several hours. Follow these instructions along with Activity/Diet recommendations noted above: * Do NOT do anything where dizziness or clumsiness would be dangerous. * Rest quietly at home today, then you can be up and about tomorrow. * Have a responsible person stay with you the rest of today. * You may have had an I.V. today. If so, you may take the dressing off later today. Recommendations Call your doctor if: * Trouble breathing * Continuous vomiting for more than 24 hours * Temperature above 101 degrees * Severe abdominal pain or bloating * Pain not relieved by pain medicine ordered * There is increased drainage or redness from any incision * A large amount of rectal bleeding greater than 2-3 tablespoons. (If you had a polyp/s removed or have hemorrhoids, a small amount of blood - from the rectum is to be expected.) * You have any unanswered questions or concerns. IN THE EVENT OF A SERIOUS EMERGENCY, GO TO THE NEAREST EMERGENCY ROOM Your discharge instructions were prepared by provider Vishal Herman. Patient Instructions Signature Page Shahbaz Arechiga Patient (or Guardian) Signature/Date: I have read and understand the instructions given to me by my caregivers. Caregiver/RN/Doctor Signature/Date: The above-named patient and/or guardian has received patient instructions on this date. + Original Patient Signature Page (only) stays with chart. Please make copy for patient.
--- NOTE | 2018-01-30 13:46 | GI REPORT ---
Procedure Date: 01/30/2018 1:06 PM Procedure: Colonoscopy Indications: Iron deficiency anemia Medicines: Monitored Anesthesia Care Complications: No immediate complications. Estimated Blood Loss: Estimated blood loss: none. Procedure: Pre-Anesthesia Assessment: - Prior to the procedure, a History and Physical was performed, and patient medications and allergies were reviewed. The patient's tolerance of previous anesthesia was also reviewed. The risks and benefits of the procedure and the sedation options and risks were discussed with the patient. All questions were answered, and informed consent was obtained. Prior Anticoagulants: The patient has taken no previous anticoagulant or antiplatelet agents. ASA Grade Assessment: II - A patient with mild systemic disease. After reviewing the risks and benefits, the patient was deemed in satisfactory condition to undergo the procedure. After I obtained informed consent, the scope was passed under direct vision. Throughout the procedure, the patient's blood pressure, pulse, and oxygen saturations were monitored continuously. The scope was introduced through the anus and advanced to the terminal ileum. The colonoscopy was performed without difficulty. The patient tolerated the procedure well. The quality of the bowel preparation was poor. The terminal ileum, ileocecal valve, appendiceal orifice, and rectum were photographed. Findings: The perianal and digital rectal examinations were normal. Copious quantities of stool was found in the entire colon, precluding visualization. Lavage of the area was performed using a large amount, resulting in incomplete clearance with continued poor visualization. Non-bleeding internal hemorrhoids were found during retroflexion. The hemorrhoids were small. Impression: - Preparation of the colon was poor. - Stool in the entire examined colon. - Non-bleeding internal hemorrhoids. - No specimens collected. Recommendation: - Resume previous diet. - Continue present medications. - Repeat colonoscopy in 3 months because the bowel preparation was poor. - Return to primary care physician as previously scheduled. Vishal Herman DO 01/30/2018 1:46:09 PM This report has been signed electronically. Note Initiated On: 01/30/2018 1:06 PM I attest to the content of the Intraoperative Record and orders documented therein, exceptions below
--- NOTE | 2018-01-30 13:53 | GI REPORT ---
Procedure Date: 01/30/2018 1:07 PM Procedure: Upper GI endoscopy Indications: Surveillance for malignancy due to personal history of esophageal cancer Medicines: Monitored Anesthesia Care Complications: No immediate complications. Estimated Blood Loss: Estimated blood loss: none. Procedure: Pre-Anesthesia Assessment: - Prior to the procedure, a History and Physical was performed, and patient medications and allergies were reviewed. The patient's tolerance of previous anesthesia was also reviewed. The risks and benefits of the procedure and the sedation options and risks were discussed with the patient. All questions were answered, and informed consent was obtained. Prior Anticoagulants: The patient has taken no previous anticoagulant or antiplatelet agents. ASA Grade Assessment: II - A patient with mild systemic disease. After reviewing the risks and benefits, the patient was deemed in satisfactory condition to undergo the procedure. After obtaining informed consent, the endoscope was passed under direct vision. Throughout the procedure, the patient's blood pressure, pulse, and oxygen saturations were monitored continuously. The On-site loaner was introduced through the mouth, and advanced to the second part of duodenum. The upper GI endoscopy was accomplished without difficulty. The patient tolerated the procedure well. 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 Mildly severe esophagitis with no bleeding was found. Biopsies were taken with a cold forceps for histology. The stomach was normal. The examined duodenum was normal. Impression: - Mildly severe acute esophagitis. Biopsied. - Normal stomach. - Normal examined duodenum. Recommendation: - Resume previous diet. - Continue present medications. - Await pathology results. - Return to GI office as previously scheduled. Vishal Herman, 01/30/2018 1:52:47 PM This report has been signed electronically. Note Initiated On: 01/30/2018 1:07 PM I attest to the content of the Intraoperative Record and orders documented therein, exceptions below
[2018-01-30 14:15] VITALS: BP 137/91; PULSE 80; O2SAT 100
--- NOTE | 2018-01-30 14:36 | Anesthesiology Progress Note ---
Anesthesia Post Op Note Date & Time Jan 30, 2018 at 14:36 Vital Signs Pain Intensity: 0 Vital Signs Past 12 Hours Date Time Temp Pulse Resp B/P (MAP) Pulse Ox O2 Delivery O2 Flow Rate FiO2 01/30/18 14:15 80 20 137/91 (106) 100 Room Air 01/30/18 14:00 79 18 123/93 (103) 98 Room Air 01/30/18 13:45 82 18 119/77 (91) 97 Room Air 01/30/18 12:39 37.2 75 18 137/88 (104) 98 Room Air Notes Mental Status: alert / awake / arousable, participated in evaluation Pt Amnestic to Procedure: Yes Nausea / Vomiting: adequately controlled Pain: adequately controlled Airway Patency, RR, SpO2: stable & adequate BP & HR: stable & adequate Hydration State: stable & adequate Anesthetic Complications: no major complications apparent
== END | disposition home or self-care (01) ==
LOC: C.GI 11:30
PROVIDERS: ATTEND Internal Medicine
DX: D50.9 Iron deficiency anemia, unspecified (principal); Z85.01 Personal history of malignant neoplasm of esophagus; R13.10 Dysphagia, unspecified; K64.8 Other hemorrhoids; K20.9 Esophagitis, unspecified; I10 Essential (primary) hypertension; Z90.49 Acquired absence of other specified parts of digestive tract; Z79.899 Other long term (current) drug therapy; Z87.891 Personal history of nicotine dependence; Z86.19 Personal history of other infectious and parasitic diseases

== ENCOUNTER 2020-07-07 11:20 | Inpatient (IN) ==
[2020-07-07 12:05] LABS: Basophils # (auto) 0.02 K/uL (0-0.2); Basophils % (auto) 0.3 %; Hematocrit (blood only) 43.5 % (42-52); Hemoglobin 14.6 g/dL (14.0-18.0); Immature Granulocytes # (auto) 0.01 K/uL (0.00-0.02); Immature Granulocytes % (auto) 0.1 %; Lymphocytes # (auto) 0.81 K/uL (1.2-3.4); Mean Corpuscular Hemoglobin 29.7 pg (25-34); Mean Corpuscular Hgb Conc 33.6 g/dL (32-36); Mean Corpuscular Volume 88.4 fL (80-100); Mean Platelet Volume 10.6 fL (7.4-10.4); Monocytes # (auto) 0.29 K/uL (0.11-0.59); Monocytes % (auto) 4.3 %; Neutrophils # (auto) 5.62 K/uL (1.4-6.5); Neutrophils % (auto) 83.3 %; Platelet Count 256 K/uL (130-400); RDW Coefficient of Variation 13.7 % (11.5-14.5); RDW Standard Deviation 44.6 fL (36.4-46.3); Red Blood Count 4.92 M/uL (4.7-6.1); White Blood Count 6.75 K/uL (4.8-10.8)
[2020-07-07] MEDS ORDERED: SODIUM CHLORIDE 0.9% 1000ML 500 ML IV ONE (12:18)
[2020-07-07] MEDS ORDERED: ONDANSETRON INJ 2 MG/ML 2 ML VIAL IV STA ×2 (12:18→13:41)
[2020-07-07] MEDS ORDERED: SODIUM CHLORIDE 0.9% 1000ML 1,000 ML IV STA (12:18)
[2020-07-07 12:20] LABS: Albumin Level 3.8 gm/dl (3.4-5.0); BUN Creatinine Ratio 14.9 (10-20); Calcium 9.1 mg/dl (8.5-10.1); Creatinine Clr Calc Pharmacy 86.5 ml/min; Est GFR (African American) 108.8; Est GFR (Non-African American) 93.9; Potassium 4.2 mmol/L (3.5-5.1)
--- NOTE | 2020-07-07 12:22 | Emergency Department Note ---
Impression & Plan Nausea & vomiting ED Provider Note INFORMANT: Patient ED PROVIDER(S): Luis F Wong MD CHIEF COMPLAINT: Vomiting PLAN: Disposition: Admitted Condition: Good MEDICAL DECISION MAKING: Patient presented with significant nausea and vomiting. He was treated with IV Zofran x2 doses. He was hydrated. He declined analgesia. The patient was still having nausea and vomiting. He was treated with IV Phenergan. He had some improvement of symptoms was still very nauseated. At this point I discussed further management in the hospital. CT imaging of his abdomen and pelvis did not reveal any acute findings. The patient had a CT scan of his chest with oral contrast also ordered. There was no obvious complications seen with the gastric pull-through. I did discuss the case with the [facility]ist service. The patient will be admitted for further management of his intractable nausea and vomiting. Triage Nursing notes reviewed and agree them. Vital Signs: reviewed and remarkable for mild hypertension Differential diagnosis: Etiologies such as complication of gastric pull-through, gastroenteritis, food borne illness, infections, appendicitis, diverticulitis, inflammatory bowel disease, GI bleed, biliary pathology, as well as others were entertained. Diagnostics interpreted by me: Cardiac Monitoring: Cardiac monitoring ordered by me: The patient was placed on continuous cardiac monitoring and observed. It revealed a normal sinus rhythm at 77 beats per minute without ectopy or evidence of dysrhythmia. Imaging studies: CT imaging of the chest abdomen and pelvis did not reveal any acute findings. No obstruction or perforation. I refer you to the EMR for further details. Consultation(s): [facility], Tiffany Murray PA-C and Dr. Aparicio. HPI: The patient is a 54 year old male who presents to the Emergency Room with complaints of nausea and vomiting.. This started 0300 this morning and is persisting. The patient also notes the following associated symptoms, chills. The patient has found no relieving factors. Current pain is rated as 0/10. No covid contacts. No loss of taste or smell. Pt denies LOC, headache, fevers, chills, diaphoresis, visual changes, neck pain, chest pain, breathing difficulties, abdominal pain, back pain, melena, hematochezia, urinary symptoms, numbness, weakness, lymphadenopathy, rash, or other complaints. ROS: See above HPI for pertinent positives & negatives. A total of 10 systems reviewed and were otherwise negative. PAST MEDICAL HISTORY:See Below, esophageal CA PAST SURGICAL HISTORY:See Below,esophagectomy FAMILY HISTORY:See Below SOCIAL HISTORY:See Below, no etoh HOME MEDICATIONS:See Below ALLERGIES:See Below VITALS:See Below PHYSICAL EXAMINATION: GENERAL: Awake, alert, uncomfortable-appearing, in no distress HENT: Normocephalic, atraumatic. Oropharynx unremarkable. EYES: Normal conjunctiva. Sclera non-icteric. NECK: Inspection normal. Non-tender. Supple. No nuchal rigidity. FROM. No masses. RESPIRATORY: Clear to auscultation. No wheezes. No rales. Normal respiratory effort. CARDIAC: Normal rate. Normal rhythm. No murmurs. No rubs. Extremities warm and well perfused. Pulses equal. No JVD. GI: Soft, non-distended. No tenderness to palpation. No rebound or guarding. No masses. RECTAL: Deferred. MUSCULOSKELETAL: Atraumatic. Chest examination reveals no tenderness. The back is symmetrical on inspection without obvious abnormality. There is no CVA tenderness to palpation. No joint edema. LOWER EXTREMITIES: Calves are equal size bilaterally and non-tender. No edema. No discoloration. NEURO: Normal sensorium. No sensory or motor deficits noted. SKIN: No rash or jaundice noted. Luis F Wong MD Past Med/Surg History Medical History (Updated 07/07/20 @ 16:51 by Shawna Gomez PA-C) Pillai esophagus Depression Esophageal cancer 2007 s/p chemo and radiation Fissure, anal Gastro-esophageal reflux disease with esophagitis Hypertension Iron deficiency anemia Kidney stones Surgical History History of colonoscopy History of cystoscopy History of esophagectomy History of esophagogastroduodenoscopy (EGD) History of repair of rotator cuff right and left shoulder History of right knee surgery meniscectomy Hx laparoscopic cholecystectomy Status post surgery neck surgery with hardware Family History Father Myocardial infarction Denies family history of Ovarian cancer Prostate cancer Breast cancer Colorectal cancer Social History (Updated 07/30/19 @ 15:34 by Silvina Tinajero) Smoking Status: Former smoker Tobacco Type: Cigarettes Cigarettes Per Day: 1/2- 1pk per day; Second Hand Exposure: No; Hx Alcohol Use: No Hx Substance Use: No Preferred Language: Upper Sorbian Visual Impairment: No Limitations Hearing Ability: Normal Associate Professor Of Psychology Required: No Beliefs That Will Affect Care: None marital status: Current Living Situation: Family current occupational status: employed 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 Feels Safe at Home: Yes Dental Care, Regularly: Yes Physical Activity Frequency: Daily Seatbelt Use: always Sunscreen Use: No Allergies Allergies Allergy/AdvReac Type Severity Reaction Status Date / Time No Known Allergies Allergy Verified 07/07/20 14:21 Home Meds Home Medications Medication Instructions Recorded Confirmed albuterol sulfate 90 mcg INHALATION Q6H PRN 03/09/20 07/07/20 buprenorphine-naloxone 1 tab SUBLINGUAL QPM 03/09/20 07/07/20 cholecalciferol (vitamin D3) 10 mcg PO QAM 03/09/20 07/07/20 [Vitamin D3] citalopram 20 mg PO QAM 03/09/20 07/07/20 doxepin 30 mg PO HS PRN 03/09/20 07/07/20 ferrous sulfate [iron] 325 mg PO QAM 03/09/20 07/07/20 lisinopril 20 mg PO QAM 03/09/20 07/07/20 sennosides 8.6 mg PO QAM PRN 03/09/20 07/07/20 sucralfate 10 ml PO QID PRN 03/09/20 07/07/20 famotidine [Pepcid] 40 mg PO QAM 07/07/20 07/07/20 Previous Rx's Medication Instructions Recorded dexlansoprazole 60 mg 60 mg PO QAM #90 cap 04/28/20 capsule,biphase delayed release clonidine HCl 0.1 mg tablet 0.1 mg PO BID PRN #60 tab 05/22/20 ondansetron 4 mg disintegrating 4 mg PO Q6H PRN #30 tab 05/22/20 tablet gabapentin 300 mg capsule 300 mg PO TID PRN #90 cap 06/28/20 Results & Data (ED) Vital Signs Vital Signs - 24 hr 07/07/20 11:32 07/07/20 11:33 07/07/20 11:34 Temperature 36.8 C Temperature Source Oral Pulse Rate 73 73 77 Pulse Rate [Apical] 72 Pulse Rate from SpO2 Sensor 74 75 Pulse Rhythm [Apical] Regular Pulse Strength [Apical] Normal Respiratory Rate 20 18 22 Respiratory Effort / Characteristics Non-Labored Spontaneous Respiratory Depth Normal Respiratory Pattern Regular Blood Pressure 161/88 H 161/88 H Blood Pressure [Left Arm] 161/88 H Blood Pressure Mean 112 101 Blood Pressure Mean [Left Arm] 112 Blood Pressure Position Lying Blood Pressure Position [Left Arm] Lying Pulse Oximetry 100 100 100 Oxygen Delivery Method Room Air Sepsis Recent Fever Within 48 Hours No Sepsis New/Unexplained Change in Mental Status N/A Sepsis Action Taken by Nursing No Action Required 07/07/20 12:00 07/07/20 12:01 07/07/20 12:30 Temperature Temperature Source Pulse Rate 71 70 77 Pulse Rate [Apical] Pulse Rate from SpO2 Sensor 71 71 74 Pulse Rhythm [Apical] Pulse Strength [Apical] Respiratory Rate 17 12 20 Respiratory Effort / Characteristics Respiratory Depth Respiratory Pattern Blood Pressure 156/91 H 143/94 H Blood Pressure [Left Arm] Blood Pressure Mean 103 97 Blood Pressure Mean [Left Arm] Blood Pressure Position Blood Pressure Position [Left Arm] Pulse Oximetry 96 95 96 Oxygen Delivery Method Sepsis Recent Fever Within 48 Hours Sepsis New/Unexplained Change in Mental Status Sepsis Action Taken by Nursing 07/07/20 12:31 07/07/20 13:00 07/07/20 13:01 Temperature Temperature Source Pulse Rate 71 69 71 Pulse Rate [Apical] Pulse Rate from SpO2 Sensor 71 70 72 Pulse Rhythm [Apical] Pulse Strength [Apical] Respiratory Rate 14 17 18 Respiratory Effort / Characteristics Respiratory Depth Respiratory Pattern Blood Pressure 157/98 H Blood Pressure [Left Arm] Blood Pressure Mean 103 Blood Pressure Mean [Left Arm] Blood Pressure Position Blood Pressure Position [Left Arm] Pulse Oximetry 96 97 97 Oxygen Delivery Method Sepsis Recent Fever Within 48 Hours Sepsis New/Unexplained Change in Mental Status Sepsis Action Taken by Nursing 07/07/20 13:27 07/07/20 13:30 07/07/20 13:31 Temperature Temperature Source Pulse Rate 68 71 Pulse Rate [Apical] 88 Pulse Rate from SpO2 Sensor 71 73 Pulse Rhythm [Apical] Pulse Strength [Apical] Respiratory Rate 16 15 19 Respiratory Effort / Characteristics Non-Labored Spontaneous Respiratory Depth Respiratory Pattern Blood Pressure 155/96 H Blood Pressure [Left Arm] 157/98 H Blood Pressure Mean 117 Blood Pressure Mean [Left Arm] 117 Blood Pressure Position Blood Pressure Position [Left Arm] Lying Pulse Oximetry 97 97 96 Oxygen Delivery Method Room Air Sepsis Recent Fever Within 48 Hours Sepsis New/Unexplained Change in Mental Status Sepsis Action Taken by Nursing 07/07/20 14:00 07/07/20 14:01 07/07/20 14:30 Temperature Temperature Source Pulse Rate 87 96 H 78 Pulse Rate [Apical] Pulse Rate from SpO2 Sensor 81 91 H 78 Pulse Rhythm [Apical] Pulse Strength [Apical] Respiratory Rate 12 17 13 Respiratory Effort / Characteristics Respiratory Depth Respiratory Pattern Blood Pressure 148/74 H 143/100 H Blood Pressure [Left Arm] Blood Pressure Mean 104 115 Blood Pressure Mean [Left Arm] Blood Pressure Position Blood Pressure Position [Left Arm] Pulse Oximetry 98 99 97 Oxygen Delivery Method Sepsis Recent Fever Within 48 Hours Sepsis New/Unexplained Change in Mental Status Sepsis Action Taken by Nursing 07/07/20 14:31 07/07/20 14:43 07/07/20 15:00 Temperature Temperature Source Pulse Rate 77 79 83 Pulse Rate [Apical] Pulse Rate from SpO2 Sensor 77 82 83 Pulse Rhythm [Apical] Pulse Strength [Apical] Respiratory Rate 14 17 17 Respiratory Effort / Characteristics Respiratory Depth Respiratory Pattern Blood Pressure 143/100 H 151/100 H Blood Pressure [Left Arm] Blood Pressure Mean 115 113 Blood Pressure Mean [Left Arm] Blood Pressure Position Blood Pressure Position [Left Arm] Pulse Oximetry 97 97 98 Oxygen Delivery Method Room Air Sepsis Recent Fever Within 48 Hours Sepsis New/Unexplained Change in Mental Status Sepsis Action Taken by Nursing 07/07/20 15:30 07/07/20 16:00 Temperature Temperature Source Pulse Rate 80 78 Pulse Rate [Apical] Pulse Rate from SpO2 Sensor 82 79 Pulse Rhythm [Apical] Pulse Strength [Apical] Respiratory Rate 15 Respiratory Effort / Characteristics Respiratory Depth Respiratory Pattern Blood Pressure 154/99 H 150/93 H Blood Pressure [Left Arm] Blood Pressure Mean 116 122 Blood Pressure Mean [Left Arm] Blood Pressure Position Blood Pressure Position [Left Arm] Pulse Oximetry 98 98 Oxygen Delivery Method Room Air Room Air Sepsis Recent Fever Within 48 Hours Sepsis New/Unexplained Change in Mental Status Sepsis Action Taken by Nursing Laboratory Data Result diagrams: 07/07/20 11:58 07/07/20 11:58 Lab Results 07/07/20 07/07/20 Range/Units 11:58 11:58 WBC 6.75 (4.8-10.8) K/uL RBC 4.92 (4.7-6.1) M/uL Hgb 14.6 (14.0-18.0) g/dL Hct 43.5 (42-52) % MCV 88.4 (80-100) fL MCH 29.7 (25-34) pg MCHC 33.6 (32-36) g/dL RDW Std Deviation 44.6 (36.4-46.3) fL RDW Coeff of Dorothy 13.7 (11.5-14.5) % Plt Count 256 (130-400) K/uL MPV 10.6 H (7.4-10.4) fL Immature Gran % (Auto) 0.1 % Neut % (Auto) 83.3 % Lymph % (Auto) 12.0 % [place] % (Auto) 4.3 % Eos % (Auto) 0.0 % Baso % (Auto) 0.3 % Neut # (Auto) 5.62 (1.4-6.5) K/uL Lymph # (Auto) 0.81 L (1.2-3.4) K/uL [place] # (Auto) 0.29 (0.11-0.59) K/uL Eos # (Auto) 0.00 (0-0.5) K/uL Baso # (Auto) 0.02 (0-0.2) K/uL Immature Gran # (Auto) 0.01 (0.00-0.02) K/uL Sodium 137 (136-145) mmol/L Potassium 4.2 (3.5-5.1) mmol/L Chloride 103 (98-107) mmol/L Carbon Dioxide 27 (21-32) mmol/L Anion Gap 8.0 (3-11) BUN 14 (7-18) mg/dl Creatinine 0.91 (0.6-1.4) mg/dl Est Cr Clr Drug Dosing 86.5 ml/min Est GFR ( Amer) 108.8 Est GFR (Non-Af Amer) 93.9 BUN/Creatinine Ratio 14.9 (10-20) Glucose 139 H (70-99) mg/dl Calcium 9.1 (8.5-10.1) mg/dl Total Bilirubin 0.5 (0.2-1) mg/dl AST 17 (15-37) U/L ALT 21 (12-78) U/L Alkaline Phosphatase 111 (45-117) U/L Total Protein 7.4 (6.4-8.2) gm/dl Albumin 3.8 (3.4-5.0) gm/dl Globulin 3.6 (2.5-4.0) gm/dl Albumin/Globulin Ratio 1.0 (0.9-2) Lipase 212 (73-393) U/L Administered Medications Sodium Chloride (Nss 1000ml) 1,000 mls @ 125 mls/hr IV .Q8H STA Stop: 07/07/20 20:17 Last Admin: 07/07/20 12:51 Dose: 125 mls/hr Documented by: [id number] Prochlorperazine 10 mg/ (Syringe) 10 mls @ 5 mls/min IV Q8H PRN PRN Reason: Nausea And Vomiting Stop: 08/06/20 16:51 Last Admin: 07/07/20 16:56 Dose: 5 mls/min Documented by: [id number] Discontinued Medications Sodium Chloride (Nss 1000ml) 500 mls @ 999 mls/hr IV .Q31M ONE Stop: 07/07/20 12:48 Last Infusion: 07/07/20 14:16 Dose: 0 mls/hr Documented by: [id number] Admin: 07/07/20 12:50 Dose: 999 mls/hr Documented by: [id number] Promethazine HCl (Phenergan) 25 mg in 51 mls @ 204 mls/hr IV NOW STA Stop: 07/07/20 14:31 Last Infusion: 07/07/20 14:38 Dose: 0 mls/hr Documented by: [id number] Admin: 07/07/20 14:23 Dose: 204 mls/hr Documented by: [id number] Ioversol (Ioversol 100ml) 93 ml IV ONCE ONE Stop: 07/07/20 16:48 Last Admin: 07/07/20 16:47 Dose: 1 ml Documented by: [id number] Ondansetron HCl (Ondansetron Inj 2 Mg/Ml 2 Ml Vial) 4 mg IV NOW STA Stop: 07/07/20 12:19 Last Admin: 07/07/20 12:51 Dose: 4 mg Documented by: [id number] Ondansetron HCl (Ondansetron Inj 2 Mg/Ml 2 Ml Vial) 4 mg IV NOW STA Stop: 07/07/20 13:42 Last Admin: 07/07/20 13:55 Dose: 4 mg Documented by: [id number] Prochlorperazine (Prochlorperazine 5 Mg/Ml 2 Ml Vial) Confirm Administered Dose 10 mg .ROUTE .STK-MED ONE Stop: 07/07/20 16:53 Last Admin: 07/07/20 16:56 Dose: Not Given Documented by: [id number] Discharge Plan Visit Data Chief Complaint: Vomiting Stated Complaint: VOMITING,NAUSEA ED Provider: Luis F Wong Discharge Problem: Nausea & vomiting Forms Stand Alone Forms: [facility] Prescriptions Prescriptions: No Action dexlansoprazole 60 mg capsule,biphase delayed releas 60 mg PO QAM Qty: 90 RF: 3 clonidine HCl 0.1 mg tablet 0.1 mg PO BID PRN (Reason: Anxiety) Qty: 60 RF: 11 ondansetron 4 mg tablet,disintegrating 4 mg PO Q6H PRN (Reason: Nausea) Qty: 30 RF: 0 gabapentin 300 mg capsule 300 mg PO TID PRN (Reason: Pain) Qty: 90 RF: 1 famotidine [Pepcid] 40 mg tablet 40 mg PO QAM RF: 0 sucralfate 100 mg/mL Suspension 10 ml PO QID PRN (Reason: pillai's esophagus) RF: 0 lisinopril 20 mg Tablet 20 mg PO QAM RF: 0 doxepin 10 mg Capsule 30 mg PO HS PRN (Reason: Insomnia) RF: 0 citalopram 20 mg Tablet 20 mg PO QAM RF: 0 ferrous sulfate [iron] 325 mg (65 mg iron) Tablet 325 mg PO QAM RF: 0 cholecalciferol (vitamin D3) [Vitamin D3] 10 mcg (400 unit) Capsule 10 mcg PO QAM RF: 0 sennosides 8.6 mg Capsule 8.6 mg PO QAM PRN (Reason: Constipation) RF: 0 albuterol sulfate 90 mcg/actuation Aero Powdr Breath Act W/Sensor 90 mcg INHALATION Q6H PRN (Reason: Wheezing) RF: 0 buprenorphine-naloxone 8-2 mg Tablet, Sublingual 1 tab SUBLINGUAL QPM RF: 0
[2020-07-07 12:23] LABS: Bilirubin,Total 0.5 mg/dl (0.2-1); Globulin 3.6 gm/dl (2.5-4.0); Total Protein 7.4 gm/dl (6.4-8.2)
[2020-07-07] MEDS ORDERED: PROMETHAZINE 25 MG/51 ML BAG IV STA (14:17)
--- NOTE | 2020-07-07 14:35 | CT Scan Report ---
ABDOMEN AND PELVIS CT WITHOUT CONTRAST CT DOSE: 301.86 mGycm HISTORY: Acute nausea and vomiting nausea and vomiting. hx of esophagectomy TECHNIQUE: Multiaxial CT images of the abdomen and pelvis were performed without contrast. A dose lo wering technique was utilized adhering to the principles of ALARA. COMPARISON STUDY: CTA chest, abdomen and pelvis 09/08/2016. FINDINGS: Limited exam without the use of contrast. Unchanged scarring of the medial basal segment right lower lobe. Lung bases are otherwise clear. No p neumatosis or pneumoperitoneum. Coronary artery calcifications. Spleen, pancreas and adrenal glands a re unremarkable. Cholecystectomy. Unenhanced liver is unremarkable. Kidneys are unremarkable. Mild ur inary bladder wall thickening. Prostamegaly. Calcified plaque the abdominal aorta without aneurysm. T here is no adenopathy. Prior esophagectomy with gastric pull-through. No bowel obstruction or bowel w all thickening. Moderate fecal retention. There is suggestion of retained enteric contrast in the cec um. The visualized appendix appears noninflamed. Soft tissues are unremarkable. Bones appear intact. No acute fracture. Degenerative changes of the spine, pelvis and hips. IMPRESSION: 1. Limited exam without the use of contrast. 2. No bowel obstruction or bowel wall thickening. The visualized appendix appears normal. 3. Moderate fecal retention. 4. Mild urinary bladder wall thickening with prostamegaly which may reflect sequela of chronic bladde r outlet obstruction. 5. Prior esophagectomy with gastric pull-through. ACT 112: Negative or not required by law. The above report was generated using voice recognition software. It may contain grammatical, syntax o r spelling errors. Electronically signed by: Guilherme Madrid M.D. 07/07/2020 2:33 PM
--- NOTE | 2020-07-07 16:06 | History & Physical Report ---
Date of Service July 07, 2020 Assessment & Plan (1) Gastritis: (2) Candidal esophagitis: (3) Nausea & vomiting: -Admit to MedSurg -Antiemetics with Phenergan, Zofran, Compazine as needed -CT of the abdomen without contrast is negative other than showing moderate fecal retention - bowel regimen ordered- phenergan IV may improve this -CT chest shows stable esophagectomy, without findings concerning for metastatic disease. -Weaning off Suboxone, currently on 8 mg daily -Consult GI, Dr. Herman for possible repeat EGD Last EGD March 10, 2020 which revealed patchy white plaques in the middle third of the esophagus found to be Dulce. Moderate to severe esophagitis without bleeding was noted. Diffuse inflammation/edema/erythema found in the entire stomach with biopsies confirming reactive gastropathy and mild chronic gastritis, negative H. pylori and no intestinal metaplasia noted. No evidence for dysplasia or malignancy in esophagus or stomach biopsies. -IV Protonix 40 mg twice daily -Consider initiation of fluconazole with history of candidal infection and similar presentation -Cont NSS at 125ml/hr -Allow clear liquid diet later after pt nausea improves (4) Esophageal cancer: - Hx of such in 2010, s/p surgical resection is cancer free - Checking CT chest for esophageal involement (5) Withdrawal from opioids: -History of using herbal supplement called kratom, not illegal but causes psychotropic effects similar to opioids and stimulants -Continue doxepin 30 mg HS prn sleep -continue gabapentin 300 mg TID prn (6) Hypertension: - BP elevated likely secondary to pain, continue IVFs, home clonidine 0.1 mg twice daily, lisinopril 20 mg daily (7) Vitamin D deficiency: -Continue mentation (8) Iron deficiency anemia: - Hx of such, cont iron supplementation (9) DVT prophylaxis: - teds, ambulatory CODE: Full code Dispo: From home, likely to remain in the hospital x 1-2 days History of Present Illness Primary Care Provider: Rafiq Boucher MD This is a 54-year-old male with PMHx of esophageal cancer s/p surgery and cancer free in 2010, nausea and vomiting, gastritis, GERD, weight loss, HTN, iron deficiency anemia, lumbago, who presents with intractable nausea and vomiting. 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 Moderate to severe esophagitis without bleeding was noted. Diffuse inflammation/edema/erythema found in the entire stomach with biopsies confirming reactive gastropathy and mild chronic gastritis, negative H. pylori and no intestinal metaplasia noted. No evidence for dysplasia or malignancy in esophagus or stomach biopsies. He has since been taking so Carafate, Zofran and dexlansoprazole he was also given a course of fluconazole by GI after esophageal biopsies confirmed Dulce. He has been following with Dr. Herman with GI. He reports his pain currently is very similar to what it was earlier this spring. He denies any alcohol use, raw or undercooked foods, changes in medications or sick contacts. He attempted to take his medications this morning but vomited it up. He has vomited probably 20 times today, and remains nauseous despite IV Phenergan. Patient denies any bowel irregularity, last BM was several days ago, no diarrhea. He is currently on suboxone treatment 8 mg daily after being on Kratom, an herbal supplement. Allergies Allergy/AdvReac Type Severity Reaction Status Date / Time No Known Allergies Allergy Verified 07/07/20 14:21 Home Medications Home Medications Medication Instructions Recorded Confirmed Type albuterol sulfate 90 mcg INHALATION Q6H PRN 03/09/20 07/07/20 History buprenorphine-naloxone 1 tab SUBLINGUAL QPM 03/09/20 07/07/20 History cholecalciferol (vitamin D3) 10 mcg PO QAM 03/09/20 07/07/20 History [Vitamin D3] citalopram 20 mg PO QAM 03/09/20 07/07/20 History doxepin 30 mg PO HS PRN 03/09/20 07/07/20 History ferrous sulfate [iron] 325 mg PO QAM 03/09/20 07/07/20 History lisinopril 20 mg PO QAM 03/09/20 07/07/20 History sennosides 8.6 mg PO QAM PRN 03/09/20 07/07/20 History sucralfate 10 ml PO QID PRN 03/09/20 07/07/20 History clonidine HCl 0.1 mg tablet 0.1 mg PO BID PRN #60 tab 05/22/20 07/07/20 Rx ondansetron 4 mg disintegrating 4 mg PO Q6H PRN #30 tab 05/22/20 07/07/20 Rx tablet gabapentin 300 mg capsule 300 mg PO TID PRN #90 cap 06/28/20 07/07/20 Rx famotidine [Pepcid] 40 mg PO HS #90 tab 07/10/20 Rx fluticasone propionate 1 spray NA BID #16 g 07/10/20 Rx pantoprazole 40 mg PO BID #60 tab 07/10/20 Rx prochlorperazine maleate 5 mg PO BID PRN #20 tab 07/10/20 Rx [Compazine] Past Med/Surg History Medical History Murry esophagus Depression Esophageal cancer 2007 s/p chemo and radiation Fissure, anal Gastro-esophageal reflux disease with esophagitis Hypertension Iron deficiency anemia Kidney stones Surgical History History of colonoscopy History of cystoscopy History of esophagectomy History of esophagogastroduodenoscopy (EGD) History of repair of rotator cuff right and left shoulder History of right knee surgery meniscectomy Hx laparoscopic cholecystectomy Status post surgery neck surgery with hardware Family History Father Myocardial infarction Denies family history of Ovarian cancer Prostate cancer Breast cancer Colorectal cancer Social History Smoking Status: Former smoker Tobacco Type: Cigarettes Cigarettes Per Day: 1/2- 1pk per day; Second Hand Exposure: No; Hx Alcohol Use: No Hx Substance Use: No Preferred Language: Urdu Communication Ability: Effective Visual Impairment: No Limitations Hearing Ability: Normal Minute Clerk Required: No Beliefs That Will Affect Care: None marital status: Current Living Situation: Spouse current occupational status: employed 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 Feels Safe at Home: Yes Dental Care, Regularly: Yes Physical Activity Frequency: Daily Seatbelt Use: always Sunscreen Use: No Review of Systems Review of Systems: Constitutional: No fever, + sweats and chills, + rigors, + fatigue, malaise Eyes: No diplopia, no worsening or blurred vision ENT: normal hearing, no trouble swallowing Respiratory: No cough, sputum, dyspnea at rest or on exertion Cardiovascular: No chest pain, tightness or palpitations Abdomen: As per HPI Musculoskeletal: No joint pain, calf pain, swelling Neurologic: No weakness, numbness/tingling, or balance problems Psychiatric: No anxiety or depression Skin: No rash or itch Physical Exam Physical Exam: General: awake, alert, keeps eyes closed during exam, one-word answers, appears uncomfortable Head: Normocephalic, atraumatic ENT: PERRL, EOMI, no pharyngeal exudate, mucous membranes dry Chest: Clear to auscultation, on room air, no adventitious breath sounds Cardiac: Regular rate and rhythm, no murmur, no JVD, normal peripheral pulses, good capillary refill Abdominal: NABS x 4 quadrants, soft, nondistended, + tender to palpation in epigastric region, no rebound or guarding Extremities: Normal inspection, no peripheral edema or erythema, calfs nontender to palpation Psych: Normal mood and affect Neuro: AAO x 3, strength intact bilaterally and rated 5/5, no motor deficits, speech is clear, no peripheral sensory deficits Results & Data Results & Data ([facility]) Vital Signs (Past 12 Hours) Vital Signs Temp Pulse Pulse Resp BP BP Pulse Ox 07/07/20 14:43 79 17 143/100 H 97 07/07/20 14:31 77 14 97 07/07/20 14:30 78 13 143/100 H 97 07/07/20 14:01 96 H 17 99 07/07/20 14:00 87 12 148/74 H 98 07/07/20 13:31 71 19 96 07/07/20 13:30 68 15 155/96 H 97 07/07/20 13:27 88 16 157/98 H 97 07/07/20 13:01 71 18 97 07/07/20 13:00 69 17 157/98 H 97 07/07/20 12:31 71 14 96 07/07/20 12:30 77 20 143/94 H 96 07/07/20 12:01 70 12 95 07/07/20 12:00 71 17 156/91 H 96 07/07/20 11:34 77 22 100 07/07/20 11:33 73 18 161/88 H 100 07/07/20 11:32 36.8 C 73 72 20 161/88 H 161/88 H 100 Diagnostic Findings ABDOMEN AND PELVIS CT WITHOUT CONTRAST CT DOSE: 301.86 mGycm HISTORY: Acute nausea and vomiting nausea and vomiting. hx of esophagectomy TECHNIQUE: Multiaxial CT images of the abdomen and pelvis were performed without contrast. A dose lowering technique was utilized adhering to the principles of ALARA. COMPARISON STUDY: CTA chest, abdomen and pelvis 09/08/2016. FINDINGS: Limited exam without the use of contrast. Unchanged scarring of the medial basal segment right lower lobe. Lung bases are otherwise clear. No pneumatosis or pneumoperitoneum. Coronary artery calcifications. Spleen, pancreas and adrenal glands are unremarkable. Cholecystectomy. Unenhanced liver is unremarkable. Kidneys are unremarkable. Mild urinary bladder wall thickening. Prostamegaly. Calcified plaque the abdominal aorta without aneurysm. There is no adenopathy. Prior esophagectomy with gastric pull-through. No bowel obstruction or bowel wall thickening. Moderate fecal retention. There is suggestion of retained enteric contrast in the cecum. The visualized appendix appears noninflamed. Soft tissues are unremarkable. Bones appear intact. No acute fracture. Degenerative changes of the spine, pelvis and hips. IMPRESSION: 1. Limited exam without the use of contrast. 2. No bowel obstruction or bowel wall thickening. The visualized appendix appears normal. 3. Moderate fecal retention. 4. Mild urinary bladder wall thickening with prostamegaly which may reflect sequela of chronic bladder outlet obstruction. 5. Prior esophagectomy with gastric pull-through. CT OF THE CHEST WITH IV CONTRAST CLINICAL HISTORY: vomiting, esophagectomy. use quick oral contrast COMPARISON STUDY: Chest CT August 17, 2019. TECHNIQUE: Following IV administration of 93 mL of Optiray-320, helical axial images of the chest were obtained. Sagittal and coronal reconstructions were viewed as well as maximal intensity projections on an independent 3-D workstation. Automated exposure control was utilized for the study. A dose lowering technique was utilized adhering to the principles of ALARA. Oral contrast was administered immediately prior to this scan. CT DOSE: 213.53 mGy.cm FINDINGS: There are postoperative findings consistent with esophagectomy with gastric pull-up. No extraluminal contrast is noted within the chest. There is no pneumomediastinum. No enlarged thoracic lymph nodes are present. There is no fluid collection within the mediastinum. No pneumothorax or pleural effusion is noted. A few tiny subpleural nodules are unchanged since CT of September 19, 2015. These are benign. There is no consolidation to suggest pneumonia. Bony thorax is unremarkable. Upper abdomen is also unremarkable. Gallbladder is surgically absent. IMPRESSION: 1. No acute findings within the chest. 2. Stable postoperative findings consistent with esophagectomy with gastric pull-up. No contrast extravasation within the chest. No pneumomediastinum. 3. No evidence of metastatic disease within the chest. Code Status & VTE Plan Code Status Full code-discussed with the patient at bedside Supervising Physician Co-Signing Physician Notes During my face to face encounter with the patient, I obtained a history and physical examination on the patient. I discussed plan of care with patient and Tiffany Gomez and answered patient's questions. I reviewed above note and agree with it. Unsure of cause of nausea and vomiting at this time. will consult GI for possible repeat EGD. may consider empiric dose of fluconoazole. PG Care Time/CCT Total # of Minutes Spent Total Time Spent with Patient: Total time spent is greater than 50% in coordination of care (as documented) at patient's floor/unit and/or counseling patient: Coding Level of Care Code 86446 Initial Inpt Care Lvl 3 Diagnoses Gastritis K29.70 Candidal esophagitis B37.81 Nausea & vomiting R11.2 Esophageal cancer C15.9 Withdrawal from opioids F11.23 Hypertension I10 Hypertension type: essential hypertension Vitamin D deficiency E55.9 Iron deficiency anemia D50.9 DVT prophylaxis Z29.9 (1) Hypertension Hypertension type: essential hypertension Qualified Code(s): I10 - Essential (primary) hypertension
[2020-07-07] MEDS ORDERED: IOVERSOL 100ml IV ONE (16:47)
[2020-07-07] MEDS ORDERED: ONDANSETRON INJ 2 MG/ML 2 ML VIAL IV PRN (16:52)
[2020-07-07] MEDS ORDERED: PROCHLORPERAZINE 5 MG/ML 2 ML VIAL ONE (16:52)
[2020-07-07] MEDS: PROCHLORPERAZINE 10 MG in SYRINGE 8 ML IV PRN (16:56)
--- NOTE | 2020-07-07 17:01 | CT Scan Report ---
CT OF THE CHEST WITH IV CONTRAST CLINICAL HISTORY: vomiting, esophagectomy. use quick oral contrast COMPARISON STUDY: Chest CT August 17, 2019. TECHNIQUE: Following IV administration of 93 mL of Optiray-320, helical axial images of the chest we re obtained. Sagittal and coronal reconstructions were viewed as well as maximal intensity projectio ns on an independent 3-D workstation. Automated exposure control was utilized for the study. A dose lowering technique was utilized adhering to the principles of ALARA. Oral contrast was administered immediately prior to this scan. CT DOSE: 213.53 mGy.cm FINDINGS: There are postoperative findings consistent with esophagectomy with gastric pull-up. No ex traluminal contrast is noted within the chest. There is no pneumomediastinum. No enlarged thoracic ly mph nodes are present. There is no fluid collection within the mediastinum. No pneumothorax or pleura l effusion is noted. A few tiny subpleural nodules are unchanged since CT of September 19, 2015. These are benign. There is no consolidation to suggest pneumonia. Bony thorax is unremarkable. Upper abdom en is also unremarkable. Gallbladder is surgically absent. IMPRESSION: 1. No acute findings within the chest. 2. Stable postoperative findings consistent with esophagectomy with gastric pull-up. No contrast extr avasation within the chest. No pneumomediastinum. 3. No evidence of metastatic disease within the chest. ACT 112: Negative or not required by law. Electronically signed by: Christopher Beverly M.D. 07/07/2020 4:59 PM
[2020-07-07] MEDS ORDERED: SENNA 8.6 MG TAB PO PRN (19:23)
[2020-07-07] MEDS ORDERED: ONDANSETRON 4 MG OD TAB PO PRN (19:23)
[2020-07-07] MEDS ORDERED: cloNIDine HCL 0.1 MG TAB PO PRN (19:23)
[2020-07-07] MEDS ORDERED: GABAPENTIN 300 MG CAP PO PRN (19:23)
[2020-07-07] MEDS ORDERED: DOXEPIN HCL 10 MG CAPSULE PO PRN (19:23)
[2020-07-07] MEDS ORDERED: SUCRALFATE 1 GM/10 ML UDC PO PRN (19:23)
[2020-07-07] MEDS ORDERED: ACETAMINOPHEN 325 MG TAB PO PRN (19:23)
[2020-07-07] MEDS ORDERED: ALBUTEROL HFA 8 GM INHALER INH PRN (19:40)
[2020-07-07] MEDS: SODIUM CHLORIDE 0.9% 1000ML 1,000 ML IV SCH (20:33)
[2020-07-07] MEDS: BUPRENORPHINE/NALOXONE 8/2 MG TAB SL SCH (20:35)
[2020-07-08] MEDS: PROMETHAZINE HCL 12.5 MG in SODIUM CHLORIDE 0.9% 50 ML IV PRN (03:10)
[2020-07-08] MEDS: SODIUM CHLORIDE 0.9% 1000ML 1,000 ML IV SCH ×3 (04:45→20:25)
[2020-07-08 06:47] LABS: Appearance Urine Clear (Clear); Bilirubin Urine Negative (Negative); Blood Urine Negative (Negative); Color Urine Yellow; Glucose Urine UA Negative (Negative); Ketones Urine 1+ (Negative); Leukocyte Esterase Urine Negative (Negative); Nitrite Urine Negative (Negative); Protein Urine Negative (Negative); Specific Gravity Urine > 1.045 (1.000-1.030); Urobilinogen Urine Negative (Negative); pH Urine 6.5 (4.5-7.5)
[2020-07-08 07:32] LABS: Hematocrit (blood only) 39.6 % (42-52); Hemoglobin 13.4 g/dL (14.0-18.0); Mean Corpuscular Hemoglobin 29.8 pg (25-34); Mean Corpuscular Hgb Conc 33.8 g/dL (32-36); Mean Platelet Volume 10.6 fL (7.4-10.4); Platelet Count 233 K/uL (130-400); RDW Coefficient of Variation 13.7 % (11.5-14.5); RDW Standard Deviation 44.1 fL (36.4-46.3); White Blood Count 11.77 K/uL (4.8-10.8)
[2020-07-08 08:09] LABS: Albumin Level 2.9 gm/dl (3.4-5.0); BUN Creatinine Ratio 17.7 (10-20); Calcium 8.6 mg/dl (8.5-10.1); Creatinine Clr Calc Pharmacy 96.7 ml/min; Est GFR (African American) 116.3; Est GFR (Non-African American) 100.4; Potassium 4.1 mmol/L (3.5-5.1)
[2020-07-08 08:22] LABS: Albumin Globulin Ratio 0.9 (0.9-2); Bilirubin,Total 0.6 mg/dl (0.2-1); Globulin 3.1 gm/dl (2.5-4.0)
[2020-07-08] MEDS: FAMOTIDINE 40 MG TABLET PO SCH (08:31)
[2020-07-08] MEDS: lisinopril 20 MG TAB PO SCH (08:31)
[2020-07-08] MEDS: CHOLECALCIFEROL 400 UNITS 10 MCG TAB PO SCH (08:32)
[2020-07-08] MEDS: POLYETHYLENE (MIRALAX) 17 GM PACK PO SCH (08:32)
[2020-07-08] MEDS: CITALOPRAM 20 MG TAB PO SCH (08:32)
[2020-07-08] MEDS: bisacodyL 5 MG TABEC PO SCH (08:32)
[2020-07-08] MEDS ORDERED: FERROUS SULFATE 325 MG TAB PO SCH (09:00)
[2020-07-08] MEDS ORDERED: PANTOprazole 40 MG TAB PO SCH (09:00)
--- NOTE | 2020-07-08 10:24 | Gastrointestinal Consultation ---
Date of Consultation July 08, 2020 Assessment & Plan (1) Nausea & vomiting: (2) Gastritis: (3) Esophageal cancer: (4) Constipation: I would recommend advancing his diet as tolerated Continue supportive care including Antiemetic therapy as needed Start Miralax 17 g in 8 oz glass of water daily (including when he is discharged) Stop Famotidine Start Pantoprazole 40 mg by mouth twice daily, 1/2 hour prior to breakfast and dinner. No plans for repeat EGD, as he is not having any alarm symptoms at present. History of Present Illness Reason for Consultation: Nausea and Vomiting Attending Physician: Hernan Connor MD History of Present Illness Shahbaz Arechiga is a 54 yo CM well known to our service with prior esophageal cancer s/p resection with gastric pull up, who presented to the ER last night secondary to recurrent nausea and vomiting. He states that early morning he developed nausea and states that he continuously vomited multiple times, and was not able to keep anything down. He presented to the ER last night, and was noted to have a stable H/H of 13.4/39.6 and a slight elevation of AST of 42. He underwent a CT scan of the abd/pelvis, and was noted to have fecal retention, chronic bladder outlet obstruction and findings of prior esophagectomy with gastric pull-through. He was subsequently admitted. He last underwent an EGD on 03/10/20, and was found to have chronic active esophagitis and mild chronic gastritis. At the time I saw him this AM, he denies any abdominal pain, fevers, chills, or further nausea/vomiting. He states that he did not have any melena, hematemesis, or hematochezia. He would like to have something to eat. He does admit to only having 1-2 BM's per week, and states that he recently stopped his stool softener therapy. He denies any further complaints. Allergies Allergy/AdvReac Type Severity Reaction Status Date / Time No Known Allergies Allergy Verified 07/07/20 14:21 Home Medications Home Medications Medication Instructions Recorded Confirmed Type albuterol sulfate 90 mcg INHALATION Q6H PRN 03/09/20 07/07/20 History buprenorphine-naloxone 1 tab SUBLINGUAL QPM 03/09/20 07/07/20 History cholecalciferol (vitamin D3) 10 mcg PO QAM 03/09/20 07/07/20 History [Vitamin D3] citalopram 20 mg PO QAM 03/09/20 07/07/20 History doxepin 30 mg PO HS PRN 03/09/20 07/07/20 History ferrous sulfate [iron] 325 mg PO QAM 03/09/20 07/07/20 History lisinopril 20 mg PO QAM 03/09/20 07/07/20 History sennosides 8.6 mg PO QAM PRN 03/09/20 07/07/20 History sucralfate 10 ml PO QID PRN 03/09/20 07/07/20 History dexlansoprazole 60 mg 60 mg PO QAM #90 cap 04/28/20 07/07/20 Rx capsule,biphase delayed release clonidine HCl 0.1 mg tablet 0.1 mg PO BID PRN #60 tab 05/22/20 07/07/20 Rx ondansetron 4 mg disintegrating 4 mg PO Q6H PRN #30 tab 05/22/20 07/07/20 Rx tablet gabapentin 300 mg capsule 300 mg PO TID PRN #90 cap 06/28/20 07/07/20 Rx famotidine [Pepcid] 40 mg PO QAM 07/07/20 07/07/20 History Patient History Medical History Murry esophagus Depression Esophageal cancer 2007 s/p chemo and radiation Fissure, anal Gastro-esophageal reflux disease with esophagitis Hypertension Iron deficiency anemia Kidney stones Surgical History History of colonoscopy History of cystoscopy History of esophagectomy History of esophagogastroduodenoscopy (EGD) History of repair of rotator cuff right and left shoulder History of right knee surgery meniscectomy Hx laparoscopic cholecystectomy Status post surgery neck surgery with hardware Family History Father Myocardial infarction Denies family history of Ovarian cancer Prostate cancer Breast cancer Colorectal cancer Social History Smoking Status: Former smoker Tobacco Type: Cigarettes Cigarettes Per Day: 1/2- 1pk per day; Second Hand Exposure: No; Hx Alcohol Use: No Hx Substance Use: No Preferred Language: Malaysian Communication Ability: Effective Visual Impairment: No Limitations Hearing Ability: Normal Admin Prog Coord Required: No Beliefs That Will Affect Care: None marital status: Current Living Situation: Spouse current occupational status: employed 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 Feels Safe at Home: Yes Safety Concerns: Feels Safe At This Time Dental Care, Regularly: Yes Physical Activity Frequency: Daily Seatbelt Use: always Sunscreen Use: No Review of Systems Constitutional: as per Subjective / HPI Eyes: as per Subjective / HPI Ear, Nose, Mouth, Throat: as per Subjective / HPI Respiratory: as per Subjective / HPI Cardiovascular: as per Subjective / HPI Gastrointestinal: as per Subjective / HPI Musculoskeletal: as per Subjective / HPI Integumentary: as per Subjective / HPI Neurologic: as per Subjective / HPI Psychiatric: as per Subjective / HPI Endocrine: as per Subjective / HPI Hematologic / Lymphatic: as per Subjective / HPI Allergy / Immunological: as per Subjective / HPI Physical Exam Constitutional: WD/WN, vitals as above + ill appearing (Chronic ) Eyes: + anicteric sclerae ENMT: external ear and nose normal, oropharynx normal Neck: trachea midline, no thyromegaly Respiratory: normal respiratory effort, lungs clear to auscultation Cardiovascular: RRR, no murmur, no edema Gastrointestinal (Abdomen): normal bowel sounds, soft, nontender, no hepatosplenomegaly Skin: no rashes, warm and dry Psychiatric: A+Ox3, euthymic affect Results & Data ([facility]) Vital Signs (Past 12 Hours) Vital Signs Temp Pulse Resp BP Pulse Ox 07/08/20 07:00 36.8 C 79 18 152/85 H 93 07/07/20 23:00 37.5 C 92 H 20 122/73 93 PG Care Time/CCT Total # of Minutes Spent Total Time Spent with Patient: Total time spent is greater than 50% in coordination of care (as documented) at patient's floor/unit and/or counseling patient: Coding Level of Care Code 68561 Inpt Consult Level 3 Diagnoses Nausea & vomiting R11.2 Gastritis K29.70 Esophageal cancer C15.9 Constipation K59.00
[2020-07-08] MEDS ORDERED: POLYETHYLENE (MIRALAX) 17 GM PACK PO SCH (10:45)
--- NOTE | 2020-07-08 12:17 | Hospitalist Progress Note ---
Date of Service July 08, 2020 Assessment & Plan (1) Nausea & vomiting: Unclear etiology as it has largely resolved. Last EGD in 02/2020 showed esophageal candidiasis which was treated. - GI consulted -> Appreciate recs. - Advance diet as tolerated - Anti-emetics PRN - PPI BID - Continue IV fluids for now (2) Candidal esophagitis: Seen on EGD in 02/2020. - Treat as above (3) Esophageal cancer: Hx of such in 2010, s/p surgical resection is cancer-free. - CT c/a/p on 07/07/2020 shows no metastatic disease and stable post- esophagectomy findings. (4) Hypertension: BP elevated to as high as 160/90. Today it is 150/85. - Continue home lisinopril - Continue home clonidine 0.1 mg PO BID (though this is listed as "PRN" for anxiety in the MAR), so not really for HTN (5) Withdrawal from opioids: History of using herbal supplement called Kratom, not illegal but causes psychotropic effects similar to opioids and stimulants. Presently he denies using it at all. However, he is on Suboxone for Kratom withdrawal. He reports he take 1/4 to 1/2 tablet of Suboxone a day. He reports to me (on 07/08) that he wants to be off this too, but that the "stupid doctors" are keeping him on it. - Continue doxepin 30 mg HS PRN for insomnia - Continue gabapentin 300 mg TID PRN (6) DVT prophylaxis: TEDS, ambulatory Admission and Anticipated Discharge Date Admission Date: July 07, 2020 Subjective Thin gentleman sleeping fairly soundly when I arrive. Upon awaking, feels significantly better. Denies any vomiting this morning. Reports no fevers/chills, chest pain, shortness of breath, abdominal pain, nausea, or vomiting. Physical Exam Constitutional: WD/WN, vitals as above Eyes: EOM intact bilaterally; no conjunctival abnormality ENMT: external ear and nose normal, oropharynx normal Neck: trachea midline, no thyromegaly normal visual inspection Respiratory: normal respiratory effort, lungs clear to auscultation no respiratory distress Cardiovascular: RRR, no murmur, no edema Gastrointestinal (Abdomen): Inspection/Auscultation: abdomen normal to inspection and normal bowel sounds; abdomen not distended Musculoskeletal: no cyanosis or clubbing, extremities motor strength 5/5 Skin: no rashes, warm and dry Neurologic: moves all extremities and awake Psychiatric: Orientation: alert, oriented to person and cooperative Results & Data Results & Data ([facility]) Vital Signs (Past 12 Hours) Vital Signs Temp Pulse Resp BP Pulse Ox 07/08/20 07:00 36.8 C 79 18 152/85 H 93 PG Care Time/CCT Total # of Minutes Spent Total Time Spent with Patient: Total time spent is greater than 50% in coordination of care (as documented) at patient's floor/unit and/or counseling patient: Coding Level of Care Code 00916 Subseq Hosp Care Lvl 2 Diagnoses Nausea & vomiting R11.2 Candidal esophagitis B37.81 Esophageal cancer C15.9 Hypertension I10 Hypertension type: essential hypertension Withdrawal from opioids F11.23 DVT prophylaxis Z29.9 (1) Hypertension Hypertension type: essential hypertension Qualified Code(s): I10 - Essential (primary) hypertension
[2020-07-08] MEDS: PANTOprazole 40 MG TAB PO SCH (20:26)
[2020-07-08] MEDS: BUPRENORPHINE/NALOXONE 8/2 MG TAB SL SCH (20:28)
[2020-07-09] MEDS: PROMETHAZINE HCL 12.5 MG in SODIUM CHLORIDE 0.9% 50 ML IV PRN (05:23)
[2020-07-09] MEDS ORDERED: ondansetron HCL 8 MG in DEXTROSE 5% 50 ML IV PRN (06:56)
[2020-07-09 07:05] LABS: Hematocrit (blood only) 40.1 % (42-52); Hemoglobin 13.5 g/dL (14.0-18.0); Mean Corpuscular Hgb Conc 33.7 g/dL (32-36); Mean Corpuscular Volume 89.1 fL (80-100); Platelet Count 216 K/uL (130-400); RDW Coefficient of Variation 13.7 % (11.5-14.5); White Blood Count 8.03 K/uL (4.8-10.8)
[2020-07-09 07:38] LABS: BUN Creatinine Ratio 13.6 (10-20); Calcium 8.6 mg/dl (8.5-10.1); Creatinine Clr Calc Pharmacy 99.2 ml/min; Est GFR (African American) 117.6; Est GFR (Non-African American) 101.4; Magnesium 1.8 mg/dl (1.8-2.4); Potassium 3.9 mmol/L (3.5-5.1)
[2020-07-09 07:41] LABS: Bilirubin,Total 0.7 mg/dl (0.2-1); Globulin 3.1 gm/dl (2.5-4.0); Total Protein 6.1 gm/dl (6.4-8.2)
[2020-07-09] MEDS: PROCHLORPERAZINE 10 MG in SYRINGE 8 ML IV PRN (08:36)
[2020-07-09] MEDS: SODIUM CHLORIDE 0.9% 1000ML 1,000 ML IV SCH ×2 (09:45→23:58)
[2020-07-09] MEDS: CITALOPRAM 20 MG TAB PO SCH (10:21)
[2020-07-09] MEDS: bisacodyL 5 MG TABEC PO SCH ×2 (10:22→19:18)
[2020-07-09] MEDS: POLYETHYLENE (MIRALAX) 17 GM PACK PO SCH ×2 (10:22→19:18)
[2020-07-09] MEDS: lisinopril 20 MG TAB PO SCH (10:23)
[2020-07-09] MEDS: PANTOprazole 40 MG TAB PO SCH ×2 (10:23→20:59)
[2020-07-09] MEDS: FAMOTIDINE 40 MG TABLET PO SCH (10:23)
[2020-07-09] MEDS: CHOLECALCIFEROL 400 UNITS 10 MCG TAB PO SCH (10:23)
--- NOTE | 2020-07-09 11:12 | Gastroenterology Progress Note ---
Date of Service July 09, 2020 Assessment & Plan (1) Nausea & vomiting: (2) Candidal esophagitis: (3) Gastritis: Discussed case with Dr. 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 Arechiga was feeling better until approximately 5 AM today when he developed nausea and vomiting of white/clear mucus. He denies any abdominal pain at present, and has been able to keep liquids down, however, he states that the anti-emetics have not been helping. He denies any fevers, chills, hematemesis, melena or hematochezia. No further complaints. Review of Systems Review of Systems: All systems reviewed & are unremarkable except as noted in HPI & below Physical Exam Constitutional: WD/WN, vitals as above Respiratory: normal respiratory effort, lungs clear to auscultation Cardiovascular: RRR, no murmur, no edema Gastrointestinal (Abdomen): normal bowel sounds, soft, nontender, no hepatosplenomegaly Results & Data Results & Data ([facility]) Vital Signs (Past 12 Hours) Vital Signs Temp Pulse Resp BP Pulse Ox 07/09/20 07:00 36.9 C 74 20 167/99 H 97 PG Care Time/CCT Total # of Minutes Spent Total Time Spent with Patient: Total time spent is greater than 50% in coordination of care (as documented) at patient's floor/unit and/or counseling patient: Coding Level of Care Code 03910 Subseq Hosp Care Lvl 3 Diagnoses Nausea & vomiting R11.2 Candidal esophagitis B37.81 Gastritis K29.70
--- NOTE | 2020-07-09 15:12 | Hospitalist Progress Note ---
Date of Service July 09, 2020 Assessment & Plan (1) Nausea & vomiting: Unclear etiology as it has largely resolved. Last EGD in 02/2020 showed esophageal candidiasis which was treated. - GI consulted -> Appreciate recs. - Advance diet as tolerated - Anti-emetics PRN - PPI BID - Start empiric treatment for candidiasis. Anti-histamine trial for post-nasal drip. Barium swallow in the AM. (2) Candidal esophagitis: Seen on EGD in 02/2020. - Treat as above (3) Esophageal cancer: Hx of such in 2010, s/p surgical resection is cancer-free. - CT c/a/p on 07/07/2020 shows no metastatic disease and stable post- esophagectomy findings. (4) Hypertension: BP elevated to as high as 160/90. Today it is 150/85. - Continue home lisinopril - Continue home clonidine 0.1 mg PO BID (though this is listed as "PRN" for anxiety in the MAR), so not really for HTN (5) Withdrawal from opioids: History of using herbal supplement called Kratom, not illegal but causes psychotropic effects similar to opioids and stimulants. Presently he denies using it at all. However, he is on Suboxone for Kratom withdrawal. He reports he take 1/4 to 1/2 tablet of Suboxone a day. He reports to me (on 07/08) that he wants to be off this too, but that the "stupid doctors" are keeping him on it. - Continue doxepin 30 mg HS PRN for insomnia - Continue gabapentin 300 mg TID PRN (6) DVT prophylaxis: TEDS, ambulatory Admission and Anticipated Discharge Date Admission Date: July 07, 2020 Subjective Had been doing well until about 5 am when we started to have nausea and vomiting again resistant to all treatments. Reports no fevers/chills, chest pain, shortness of breath. Physical Exam Constitutional: WD/WN, vitals as above + acute distress Eyes: EOM intact bilaterally; no conjunctival abnormality ENMT: external ear and nose normal, oropharynx normal Neck: trachea midline, no thyromegaly normal visual inspection Respiratory: normal respiratory effort, lungs clear to auscultation no respiratory distress Cardiovascular: RRR, no murmur, no edema Gastrointestinal (Abdomen): Inspection/Auscultation: abdomen normal to inspection and normal bowel sounds; abdomen not distended Percussion/Palpation: abdomen soft; abdomen nontender, no guarding and abdomen not rigid Musculoskeletal: no cyanosis or clubbing, extremities motor strength 5/5 Skin: no rashes, warm and dry Neurologic: moves all extremities and awake Psychiatric: Orientation: alert, oriented to person and cooperative Results & Data Results & Data ([facility]) Vital Signs (Past 12 Hours) Vital Signs Temp Pulse Resp BP Pulse Ox 07/09/20 14:42 37.2 C 81 18 169/91 H 95 07/09/20 07:00 36.9 C 74 20 167/99 H 97 PG Care Time/CCT Total # of Minutes Spent Total Time Spent with Patient: Total time spent is greater than 50% in coordination of care (as documented) at patient's floor/unit and/or counseling patient: Coding Level of Care Code 39203 Subseq Hosp Care Lvl 3 Diagnoses Nausea & vomiting R11.2 Candidal esophagitis B37.81 Esophageal cancer C15.9 Hypertension I10 Hypertension type: essential hypertension Withdrawal from opioids F11.23 DVT prophylaxis Z29.9 (1) Hypertension Hypertension type: essential hypertension Qualified Code(s): I10 - Essential (primary) hypertension
[2020-07-09] MEDS ORDERED: FLUCONAZOLE 100 MG TAB PO ONE (15:30)
[2020-07-09 17:44] LABS: Adenovirus PCR Not Detected (NotDetected); Bordetella parapertussis PCR Not Detected (NotDetected); Bordetella pertussis PCR Not Detected (NotDetected); Chlamydia pneumoniae PCR Not Detected (NotDetected); Coronavirus 229E PCR Not Detected (NotDetected); Coronavirus CoV-2 (COVID19)PCR Not Detected (NotDetected); Coronavirus HKU1 PCR Not Detected (NotDetected); Coronavirus NL63 PCR Not Detected (NotDetected); Coronavirus OC43PCR Not Detected (NotDetected); Human Metapneumovirus PCR Not Detected (NotDetected); Influenza A PCR Not Detected (NotDetected); Influenza B PCR Not Detected (NotDetected); Mycoplasma pneumoniae PCR Not Detected (NotDetected); Parainfluenza Virus 1 PCR Not Detected (NotDetected); Parainfluenza Virus 2 PCR Not Detected (NotDetected); Parainfluenza Virus 3 PCR Not Detected (NotDetected); Parainfluenza Virus 4 PCR Not Detected (NotDetected); Respiratory Syncytial VirusPCR Not Detected (NotDetected); Rhinovirus/Enterovirus PCR Not Detected (NotDetected)
[2020-07-09] MEDS: FLUTICASONE PROPIONATE NA SPR 16 GM BTL SCH (20:59)
[2020-07-09] MEDS: BUPRENORPHINE/NALOXONE 8/2 MG TAB SL SCH (20:59)
[2020-07-10 07:02] LABS: Hematocrit (blood only) 37.3 % (42-52); Hemoglobin 12.9 g/dL (14.0-18.0); Mean Corpuscular Hemoglobin 30.7 pg (25-34); Mean Corpuscular Hgb Conc 34.6 g/dL (32-36); Mean Corpuscular Volume 88.8 fL (80-100); Mean Platelet Volume 10.6 fL (7.4-10.4); Platelet Count 198 K/uL (130-400); RDW Coefficient of Variation 13.3 % (11.5-14.5); RDW Standard Deviation 43.5 fL (36.4-46.3); White Blood Count 5.42 K/uL (4.8-10.8)
[2020-07-10 07:29] LABS: Albumin Level 2.7 gm/dl (3.4-5.0); BUN Creatinine Ratio 12.1 (10-20); Calcium 8.2 mg/dl (8.5-10.1); Creatinine Clr Calc Pharmacy 95.5 ml/min; Est GFR (African American) 115.7; Est GFR (Non-African American) 99.9; Magnesium 1.8 mg/dl (1.8-2.4); Potassium 4.1 mmol/L (3.5-5.1)
[2020-07-10 07:31] LABS: Albumin Globulin Ratio 0.9 (0.9-2); Bilirubin,Total 0.4 mg/dl (0.2-1); Globulin 3.1 gm/dl (2.5-4.0); Phosphorus 3.2 mg/dl (2.5-4.9); Total Protein 5.8 gm/dl (6.4-8.2)
[2020-07-10] MEDS: CHOLECALCIFEROL 400 UNITS 10 MCG TAB PO SCH (07:36)
[2020-07-10] MEDS: bisacodyL 5 MG TABEC PO SCH (07:36)
[2020-07-10] MEDS: POLYETHYLENE (MIRALAX) 17 GM PACK PO SCH (07:36)
[2020-07-10] MEDS: PANTOprazole 40 MG TAB PO SCH (07:36)
[2020-07-10] MEDS: CITALOPRAM 20 MG TAB PO SCH (07:36)
[2020-07-10] MEDS: FAMOTIDINE 40 MG TABLET PO SCH (07:37)
[2020-07-10] MEDS: lisinopril 20 MG TAB PO SCH (07:37)
[2020-07-10] MEDS: FLUTICASONE PROPIONATE NA SPR 16 GM BTL SCH (07:37)
[2020-07-10] MEDS ORDERED: FLUCONAZOLE 100 MG TAB PO SCH (09:00)
--- NOTE | 2020-07-10 09:39 | Gastroenterology Progress Note ---
Date of Service July 10, 2020 Assessment & Plan (1) Nausea & vomiting: (2) Candidal esophagitis: (3) Gastritis: -Await barium swallow as ordered today. -Continue Pantoprazole 40 mg BID. -Continue Fluconazole 200 mg daily. -Continue supportive care. -Additional recommendations pending results of imaging. Admission and Anticipated Discharge Date Admission Date: July 07, 2020 Subjective Patient remains NPO for barium swallow today. Reports improved swallowing after starting Diflucan. States he is hungry and has no further n/v. Denies abdominal pain and overt GIB sx. Review of Systems Review of Systems: All systems reviewed & are unremarkable except as noted in HPI & below Physical Exam Constitutional: WD/WN, vitals as above Eyes: EOM intact bilaterally Neck: normal visual inspection Respiratory: normal respiratory effort, lungs clear to auscultation Cardiovascular: RRR, no murmur, no edema Gastrointestinal (Abdomen): normal bowel sounds, soft, nontender, no hepatosplenomegaly Musculoskeletal: no cyanosis or clubbing, extremities motor strength 5/5 Skin: no rashes, warm and dry Psychiatric: A+Ox3, euthymic affect Results & Data Results & Data ([facility]) Vital Signs (Past 12 Hours) Vital Signs Temp Pulse Resp BP Pulse Ox 07/10/20 07:00 36.8 C 69 18 150/85 H 95 07/09/20 23:25 36.9 C 73 20 150/86 H 94 Laboratory Results Abnormal lab results 07/10/20 07/10/20 Range/Units 06:35 06:35 RBC 4.20 L (4.7-6.1) M/uL Hgb 12.9 L (14.0-18.0) g/dL Hct 37.3 L (42-52) % MPV 10.6 H (7.4-10.4) fL Calcium 8.2 L (8.5-10.1) mg/dl Total Protein 5.8 L (6.4-8.2) gm/dl Albumin 2.7 L (3.4-5.0) gm/dl PG Care Time/CCT Total # of Minutes Spent Total Time Spent with Patient: Total time spent is greater than 50% in coordination of care (as documented) at patient's floor/unit and/or counseling patient: Coding Level of Care Code 43540 Subseq Hosp Care Lvl 3 Diagnoses Nausea & vomiting R11.2 Candidal esophagitis B37.81 Gastritis K29.70
--- NOTE | 2020-07-10 10:30 | Fluoroscopy Report ---
DOUBLE CONTRAST BARIUM ESOPHAGRAM CLINICAL HISTORY: Nausea and vomiting. COMPARISON STUDY: Chest CT dated 07/07/2020. TECHNIQUE: A standard air contrast barium esophagram is performed. Multiple spot images of the esopha ina are acquired both upright and prone. FINDINGS: Postoperative change is consistent with a history of esophagectomy and gastric pull-through . The patient swallowed barium and the barium pill without difficulty. There was pooling of contrast in the gastric pull-through in the prone positioning. This quickly cleared with the patient in the er ect position. The mucosal pattern is normal. There is no evidence of stricture or extraluminal contra st. There is no evidence of extrinsic mass lesion. No aspiration was seen. Gastroesophageal reflux w as observed during the examination. Fusion hardware is noted in the cervical spine. Fluoroscopy time: 0.8 minutes. Fluoroscopic images: 58 IMPRESSION: 1. There is postoperative change consistent with a history of esophagectomy and gastric pull-through procedure. 2. There is no evidence of stricture or extraluminal contrast. 3. Gastroesophageal reflux was observed. 4. There is pooling of contrast in the gastric pull-through in the prone position which quickly clear ed in the erect position. ACT 112: Negative or not required by law. Electronically signed by: Param Li M.D. 07/10/2020 10:29 AM
[2020-07-10] MEDS: SODIUM CHLORIDE 0.9% 1000ML 1,000 ML IV SCH (11:30)
--- NOTE | 2020-07-10 18:16 | Discharge Summary ---
Date of Service July 10, 2020 Admission HPI Per Admitting Provider This is a 54-year-old male with PMHx of esophageal cancer s/p surgery and cancer free in 2010, nausea and vomiting, gastritis, GERD, weight loss, HTN, iron deficiency anemia, lumbago, who presents with intractable nausea and vomiting. 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 Moderate to severe esophagitis without bleeding was noted. Diffuse inflammation/edema/erythema found in the entire stomach with biopsies confirming reactive gastropathy and mild chronic gastritis, negative H. pylori and no intestinal metaplasia noted. No evidence for dysplasia or malignancy in esophagus or stomach biopsies. He has since been taking so Carafate, Zofran and dexlansoprazole he was also given a course of fluconazole by GI after esophageal biopsies confirmed Dulce. He has been following with Dr. Herman with GI. He reports his pain currently is very similar to what it was earlier this spring. He denies any alcohol use, raw or undercooked foods, changes in medications or sick contacts. He attempted to take his medications this morning but vomited it up. He has vomited probably 20 times today, and remains nauseous despite IV Phenergan. Patient denies any bowel irregularity, last BM was several days ago, no diarrhea. He is currently on suboxone treatment 8 mg daily after being on Kratom, an herbal supplement. Principal Diagnosis Intractable nausea and vomiting - Possible reflux vs. viral gastroenteritis Discharge Exam Constitutional WD/WN, vitals as above no acute distress Eyes EOM intact bilaterally; no conjunctival abnormality ENMT external ear and nose normal, oropharynx normal Neck trachea midline, no thyromegaly normal visual inspection Respiratory normal respiratory effort, lungs clear to auscultation no respiratory distress Cardiovascular RRR, no murmur, no edema Gastrointestinal (Abdomen) Inspection/Auscultation: abdomen normal to inspection and normal bowel sounds; abdomen not distended Percussion/Palpation: abdomen soft; abdomen nontender, no guarding and abdomen not rigid Musculoskeletal no cyanosis or clubbing, extremities motor strength 5/5 Skin no rashes, warm and dry Neurologic moves all extremities and awake Psychiatric Orientation: alert, oriented to person and cooperative Discharge Data Allergies Allergy/AdvReac Type Severity Reaction Status Date / Time No Known Allergies Allergy Verified 07/07/20 14:21 Consultations 07/07/20 15:25 ED Decision to Admit Stat 07/07/20 19:23 Consult Gastroenterology Routine Ordered Studies 07/07/20 12:17 CT abd pelvis wo con Stat 07/07/20 15:24 CT chest w con Stat 07/10/20 [place] barium swallow Routine Hospital Course (1) Nausea & vomiting: Unclear etiology as it has largely resolved. Last EGD in 02/2020 showed esophageal candidiasis which was treated. Possibly viral gastroenteritis? - GI consulted -> Appreciate recs. - Barium swallow on 07/10 showed significant reflux. * Anti-histamine trial for possible post-nasal drip. * Increased PPI to BID * Gave conservative recs to improve reflux (no alcohol before bed, small evening meal, etc.) - By discharge, he was completely resolved. Discharged with small amount of Compazine in case he has a recurrence. (2) Candidal esophagitis: Seen on EGD in 02/2020. - Empiric treatment for a day; stopped by discharge. (3) Esophageal cancer: Hx of such in 2010, s/p surgical resection is cancer-free. - CT c/a/p on 07/07/2020 shows no metastatic disease and stable post- esophagectomy findings. (4) Hypertension: BP elevated to as high as 160/90. Today it is 150/85. - Continue home lisinopril - Continue home clonidine 0.1 mg PO BID (though this is listed as "PRN" for anxiety in the MAR), so not really for HTN (5) Withdrawal from opioids: History of using herbal supplement called Kratom, not illegal but causes psychotropic effects similar to opioids and stimulants. Presently he denies using it at all. However, he is on Suboxone for Kratom withdrawal. He reports he take 1/4 to 1/2 tablet of Suboxone a day. He reports to me (on 07/08) that he wants to be off this too, but that the "stupid doctors" are keeping him on it. - Continue doxepin 30 mg HS PRN for insomnia - Continue gabapentin 300 mg TID PRN (6) DVT prophylaxis: TEDS, ambulatory Total Time Total Time Spent Total Time Spent (In Minutes): 35 Discharge Plan Discharge Items Patient Disposition: Home - Self-Care Reason For Visit: INTRACTABLE NAUSEA AND VOMITING Discharge Diagnosis: Nausea and vomiting -> Likely from gastric reflux vs viral illness Activity: Resume your previous activity Non-emergency contact: Primary Care Provider and Cart Driver Call non-emergency contact if: your symptoms worsen Follow-up/Referrals: Vishal Herman, [Physician] - 07/13/20 9:30 am (You have an appt with Dr Effie Herman, 07/13 at 0930am. Please arrive 15 minute prior to your appt. It is important that you keep this appt, if it does not fit your schedule please c all [phone] to reschedule. ) Rafiq Boucher III, MD [Primary Care Provider] - 07/17/20 10:30 am (You have an appt with Sarah on FridayJul 17 at 10:30am. Please arrive 15 minutes prior to your appt. It is important that you keep this appt, if it does not fit your schedule please call [phone] to reschedule. ) Diet: Heart Healthy Addtl Attending Provider Instructions: You were admitted to the hospital with intractable nausea and vomiting. We did a number of tests and did not find one distinct cause for this. The barium swallow did show significant gastric reflux into your esophagus and gastric pull- through, so this may have contributed. Additionally, you possibly had some post- nasal drip that irritated things. Finally, you may have had a gastric/GI virus that caused this issue. We are switching your acid erwin to twice a day to help your stomach acid levels stay low. Other conservative measures to reduce overnight reflux include eating a small evening meal, avoiding alcohol 3 hours before bed, and elevating the head of the bed slightly with pillows. We initially were concerned about a yeast infection in the esophagus like you had this spring, but we don't see evidence of that on the barium swallow test, so we will not prescribe more fluconazole. Please follow up with Dr. Herman in the clinic in 2-3 weeks to see how you are doing. Pending Studies at Discharge: No Stand-Alone Forms: [facility], Work/School Release (Inpt), Smoking Cessation Medications and DC Order Prescriptions: New pantoprazole 40 mg tablet,delayed release (DR/EC) 40 mg PO BID Qty: 60 RF: 1 fluticasone propionate 50 mcg/actuation [place],Suspension 1 spray NA BID Qty: 16 RF: 0 prochlorperazine maleate [Compazine] 5 mg tablet 5 mg PO BID PRN (Reason: nausea and vomiting) Qty: 20 RF: 0 Continued clonidine HCl 0.1 mg tablet 0.1 mg PO BID PRN (Reason: Anxiety) Qty: 60 RF: 11 ondansetron 4 mg tablet,disintegrating 4 mg PO Q6H PRN (Reason: Nausea) Qty: 30 RF: 0 gabapentin 300 mg capsule 300 mg PO TID PRN (Reason: Pain) Qty: 90 RF: 1 sucralfate 100 mg/mL Suspension 10 ml PO QID PRN (Reason: pillai's esophagus) RF: 0 lisinopril 20 mg Tablet 20 mg PO QAM RF: 0 doxepin 10 mg Capsule 30 mg PO HS PRN (Reason: Insomnia) RF: 0 citalopram 20 mg Tablet 20 mg PO QAM RF: 0 ferrous sulfate [iron] 325 mg (65 mg iron) Tablet 325 mg PO QAM RF: 0 cholecalciferol (vitamin D3) [Vitamin D3] 10 mcg (400 unit) Capsule 10 mcg PO QAM RF: 0 sennosides 8.6 mg Capsule 8.6 mg PO QAM PRN (Reason: Constipation) RF: 0 albuterol sulfate 90 mcg/actuation Aero Powdr Breath Act W/Sensor 90 mcg INHALATION Q6H PRN (Reason: Wheezing) RF: 0 buprenorphine-naloxone 8-2 mg Tablet, Sublingual 1 tab SUBLINGUAL QPM RF: 0 Changed famotidine [Pepcid] 40 mg tablet 40 mg PO HS Qty: 90 RF: 3 Discontinued dexlansoprazole 60 mg capsule,biphase delayed releas 60 mg PO QAM Qty: 90 RF: 3 Discharge Orders: Discharge Order (Routine); Ordered 07/10/20 Ordered By: Hernan Connor Admission Data Admit Date/Time: 07/07/20 16:41 Attending Provider: Hernan Connor Admit Provider: Jose Daniel Aparicio Primary Care Provider: Rafiq Boucher III Other Providers: Vishal Herman ; Hernan Connor Other Interventions: Discharge Summary Assessment (RN) Last Done: 07/10/20 14:21 Coding Level of Care Code D/C Day Management >30 mins Diagnoses Nausea & vomiting R11.2 Candidal esophagitis B37.81 Esophageal cancer C15.9 Hypertension I10 Hypertension type: essential hypertension Withdrawal from opioids F11.23 DVT prophylaxis Z29.9
== END 2020-07-10 14:30 | disposition home or self-care (01) | DRG 392 ==
LOC: ED 11:20 → 2N 16:41 → SUATTDRO 16:41 → 2N 19:00

== ENCOUNTER 2020-10-29 07:15 | Observation (INO) ==
[2020-10-29] MEDS ORDERED: SODIUM CHLORIDE 0.9% 1000ML 1,000 ML IV ONE ×2 (07:25→08:46)
[2020-10-29] MEDS ORDERED: ONDANSETRON INJ 2 MG/ML 2 ML VIAL IV STA ×2 (07:25→08:46)
[2020-10-29] MEDS ORDERED: diphenhydrAMINE 50 MG/ML VIAL IV STA (07:25)
[2020-10-29] MEDS ORDERED: PROCHLORPERAZINE 2 ML IV ONE (07:25)
[2020-10-29] MEDS ORDERED: fentaNYL citrate 100 MCG/2 ML VIAL IV STA ×2 (07:25→08:46)
[2020-10-29 08:05] LABS: Basophils # (auto) 0.03 K/uL (0-0.2); Basophils % (auto) 0.4 %; Eosinophils # (auto) 0.03 K/uL (0-0.5); Eosinophils % (auto) 0.4 %; Hematocrit (blood only) 39.6 % (42-52); Hemoglobin 13.7 g/dL (14.0-18.0); Immature Granulocytes # (auto) 0.01 K/uL (0.00-0.02); Immature Granulocytes % (auto) 0.1 %; Lymphocytes # (auto) 1.19 K/uL (1.2-3.4); Lymphocytes % (auto) 15.4 %; Mean Corpuscular Hemoglobin 30.1 pg (25-34); Mean Corpuscular Hgb Conc 34.6 g/dL (32-36); Mean Platelet Volume 10.4 fL (7.4-10.4); Monocytes # (auto) 0.81 K/uL (0.11-0.59); Monocytes % (auto) 10.5 %; Neutrophils # (auto) 5.67 K/uL (1.4-6.5); Neutrophils % (auto) 73.2 %; Platelet Count 226 K/uL (130-400); RDW Coefficient of Variation 13.1 % (11.5-14.5); RDW Standard Deviation 41.8 fL (36.4-46.3); Red Blood Count 4.55 M/uL (4.7-6.1); White Blood Count 7.74 K/uL (4.8-10.8)
[2020-10-29 08:23] LABS: Alanine Aminotransferase 28 U/L (12-78); Albumin Level 3.6 gm/dl (3.4-5.0); Aspartate Aminotransferase 20 U/L (15-37); BUN Creatinine Ratio 11.8 (10-20); Bilirubin Direct 0.2 mg/dl (0-0.2); Blood Urea Nitrogen 10 mg/dl (7-18); Calcium 9.2 mg/dl (8.5-10.1); Carbon Dioxide 24 mmol/L (21-32); Chloride 104 mmol/L (98-107); Creatinine Clr Calc Pharmacy 92.1 ml/min; Est GFR (African American) 112.1; Est GFR (Non-African American) 96.7; Glucose 111 mg/dl (70-99); Lipase 172 U/L (73-393); Magnesium 1.9 mg/dl (1.8-2.4); Potassium 3.7 mmol/L (3.5-5.1); Sodium 136 mmol/L (136-145)
[2020-10-29 08:31] LABS: Alkaline Phosphatase 88 U/L (45-117); Bilirubin,Total 0.6 mg/dl (0.2-1); Total Protein 6.9 gm/dl (6.4-8.2); Troponin I < 0.015 ng/ml (0-0.045)
--- NOTE | 2020-10-29 08:46 | XRay Report ---
XR chest 1V portable HISTORY: Atypical chest pain, vomiting COMPARISON: Chest 10/27/2020. FINDINGS: No pneumothorax or no pleural effusions. Surgical clips again noted within the mediastinum and left upper quadrant. The lungs are clear. The heart is normal in size. There are cervical spinal fusion hardware. IMPRESSION: No acute process. ACT 112: Negative or not required by law. Electronically signed by: Shree Murguia M.D. 10/29/2020 8:44 AM
--- NOTE | 2020-10-29 08:55 | Emergency Department Note ---
Impression & Plan Intractable vomiting, Epigastric abdominal pain ED Provider Note Name: ERENDIRA OTT Age: 55 Sex: M Arrives Via: Walk-In Informant: Patient ED Provider: Rangel Posey MD Chief Complaint: Vomiting Impression: Intractable Vomiting Epigastric abdominal pain Medical Decision Makin yr old male with history of GERD, HTN, Depression with remote esophageal CA history arrives for nausea, vomiting, epigastric pain. No fevers, peritonitis, and vitals look good. This episode ongoing for the last 3 days despite earlier visit for same with home rectal phenergan. Despite IV zofran x 2, compazine, fluids, fentanyl still continued nausea/vomiting though pain much improved. Labs looking OK. Not cardiac with unremarkable EKG and normal trop. Not consistent with esophageal rupture. Given persistence of n/v hospitalist consulted for further management. This is similar to previous 2 episodes of similar over the last year (previously esophageal candidal infection in February). No indication for emergent imaging at this time. This does not seem consistent with obstruction. Prior Medical Record and Triage/Nursing Notes reviewed by Me Additional history obtained from chart Differentials:Reflux, PUD, infections, diverticulitis, obstruction, mesenteric ischemia, aortic pathology, inflammatory bowel disease, pancreatitis, biliary pathology, hernia, volvulus, constipation, as well as other pathologies. amongst other pathologies. Vital Signs: reviewed and remarkable for no significant abnormalities Interventions: saline lock, zofran 4mg iv x 2, compazine 10mg iv, benadryl 50mg iv, fentanyl 50mcg IV x 2, nss bolus Labs:Reviewed and remarkable for no significant abnormalities Imaging:X ray results are stated below per my interpretation: Chest: 1 view: No infiltrate, no effusion, normal cardiac border. Emphysema similar to previous. No free air under diaphragm EKG:Per My Interpretation: Indication Vomiting/Epigastric Pain: NSR 67 bpm, qtc 397. No Ectopy. No Ischemia. Compared to EKG 09/08/16, no significant changes. Cardiac/Tele Monitoring: Cardiac Monitoring: An Order was placed for continuous cardiac monitoring. The monitor shows a rate of 60 with a normal sinus rhythm. Consults:Dr Salo [facility] Hospitalist will evaluate Plan: Disposition:Hospitalization. Condition: Good History of Present Illness:55 yr old male arrives for evaluation of vomiting. Patient notes episodes of severe nausea, vomiting and abdominal cramping over the last year with admissions in February and Jun 2020. Found to have candidal infection on scope in february. The last 3 days he notes severe worsening of symptoms. Was seen 3 days ago and initially feeling improved with compazine/zofran and rectal phenergan. Unfortunately symptoms severely worse over the last 24 hours. Unable to keep any thing down. Vomiting every few minutes. No blood in emesis. Using rectal phenergan without improvement. No fevers, chills, sob, cp, syncope, back pain, urinary/bowel changes, leg swelling nor other symptoms. Nothing makes better nor worse. No trauma/injuries. Denies inciting event. ROS: See above HPI for pertinent positives & negatives. A total of 10 systems reviewed and were otherwise negative. Past Medical History:See Below Past Surgical History:See Below Family History:See Below Social History:See Below Home Medications:See Below Allergies:NKDA Vitals:Blood Pressure: 154/86, Pulse 77, RR 22, T 36.9C, O2 100% on RA Physical Exam: GENERAL: Patient is very uncomfortable appearing and in moderate distress. Actively dry heaving EYES: No scleral icterus, unremarkable pupils. ENT: Mucous membranes moist, no nasal congestion. NECK: No masses appreciated, nomeningismus, trachea is midline. RESPIRATORY: Tachypnea, No dyspnea. Clear to auscultation and equal bilaterally. No wheeze, no rhonchi. CARDIOVASCULAR: Regular rate and rhythm.No murmurs, rubs, gallops appreciated. GASTROINTESTINAL: TTP over epigastrium, otherwise abdomen soft, non-tender, no peritonitis.Bowel sounds positive.No masses appreciated. BACK: No midline tenderness, no CVA tenderness EXTREMITIES: Normal motion all extremities, no cyanosis, no edema. NEUROLOGIC: Alert and oriented, no acute motor or sensory deficits, no focal weakness, cranial nerves grossly intact. SKIN: No rash, no jaundice, no diaphoresis. PSYCH: Appropriate GCS: 15 ED Course: Times/Reassessments: slowly improved but continued nausea and periodic emesis Rangel Posey MD Past Med/Surg History Medical History Murry esophagus Depression Elevated prostate specific antigen (PSA) Esophageal cancer 2007 s/p chemo and radiation Fissure, anal Gastro-esophageal reflux disease with esophagitis Hypertension Iron deficiency anemia Kidney stones Surgical History History of colonoscopy History of cystoscopy History of esophagectomy History of esophagogastroduodenoscopy (EGD) History of repair of rotator cuff right and left shoulder History of right knee surgery meniscectomy Hx laparoscopic cholecystectomy Status post surgery neck surgery with hardware Family History Father Myocardial infarction Denies family history of Ovarian cancer Prostate cancer Breast cancer Colorectal cancer Social History Smoking Status: Former smoker Tobacco Type: Cigarettes Years Smoked: 10; Cigarettes Per Day: 10-20; Second Hand Exposure: Yes; Hx Alcohol Use: No Hx Substance Use: No Preferred Language: Tongan Communication Ability: Effective Visual Impairment: No Limitations Hearing Ability: Normal Instruments Sales Representative Required: No Beliefs That Will Affect Care: None marital status: Current Living Situation: Spouse current occupational status: employed 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 Feels Safe at Home: Yes Dental Care, Regularly: Yes Physical Activity Frequency: Daily Seatbelt Use: always Sunscreen Use: No Assistive Devices: Glasses Allergies Allergies Allergy/AdvReac Type Severity Reaction Status Date / Time No Known Allergies Allergy Verified 10/29/20 08:23 Home Meds Home Medications Medication Instructions Recorded Confirmed albuterol sulfate 90 mcg INHALATION Q6H PRN 03/09/20 10/29/20 buprenorphine-naloxone 1 tab SUBLINGUAL QPM 03/09/20 10/29/20 cholecalciferol (vitamin D3) 10 mcg PO QAM 03/09/20 10/29/20 [Vitamin D3] doxepin 30 mg PO HS PRN 03/09/20 10/29/20 ferrous sulfate [iron] 325 mg PO QAM 03/09/20 10/29/20 sennosides 8.6 mg PO QAM PRN 03/09/20 10/29/20 Previous Rx's Medication Instructions Recorded clonidine HCl 0.1 mg tablet 0.1 mg PO BID PRN #60 tab 05/22/20 famotidine [Pepcid] 40 mg PO HS #90 tab 07/10/20 prochlorperazine maleate 5 mg PO BID PRN #20 tab 07/10/20 [Compazine] sucralfate 100 mg/mL oral 10 ml PO QID PRN #420 ml 08/16/20 suspension citalopram 20 mg tablet 20 mg PO QAM #90 tab 08/22/20 gabapentin 300 mg capsule 300 mg PO TID PRN #90 cap 08/24/20 fluticasone propionate 50 1 spray NA BID #16 g 08/31/20 mcg/actuation nasal spray,suspension lisinopril 20 mg tablet 20 mg PO QAM #30 tab 09/25/20 ondansetron 4 mg disintegrating 4 mg PO Q6H PRN #30 tab 09/25/20 tablet pantoprazole 40 mg tablet,delayed 40 mg PO BID #60 tab 09/28/20 release promethazine 25 mg CA Q6H PRN #12 ea 10/27/20 Results & Data (ED) Vital Signs Vital Signs - 24 hr 10/29/20 07:20 10/29/20 09:04 10/29/20 10:15 Temperature 36.9 C Temperature Source Oral Pulse Rate 77 Pulse Rate [Right Finger] 69 70 Respiratory Rate 22 18 18 Respiratory Effort / Characteristics Non-Labored Spontaneous Non-Labored Spontaneous Respiratory Depth Normal Normal Respiratory Pattern Regular Regular Blood Pressure 154/86 H Blood Pressure [Left Arm] 159/104 H 151/107 H Blood Pressure Mean 108 Blood Pressure Mean [Left Arm] 122 121 Blood Pressure Position [Left Arm] Lying Lying Pulse Oximetry 100 98 97 Oxygen Delivery Method Room Air Room Air Room Air Sepsis Recent Fever Within 48 Hours No Sepsis New/Unexplained Change in Mental Status N/A Sepsis Action Taken by Nursing No Action Required 10/29/20 11:15 Temperature Temperature Source Pulse Rate Pulse Rate [Right Finger] 71 Respiratory Rate 18 Respiratory Effort / Characteristics Respiratory Depth Respiratory Pattern Blood Pressure Blood Pressure [Left Arm] 145/99 H Blood Pressure Mean Blood Pressure Mean [Left Arm] 114 Blood Pressure Position [Left Arm] Pulse Oximetry 97 Oxygen Delivery Method Room Air Sepsis Recent Fever Within 48 Hours Sepsis New/Unexplained Change in Mental Status Sepsis Action Taken by Nursing Laboratory Data Result diagrams: 10/29/20 07:53 10/29/20 07:53 Lab Results 10/29/20 10/29/20 10/29/20 Range/Units 07:53 07:53 08:52 WBC 7.74 (4.8-10.8) K/uL RBC 4.55 L (4.7-6.1) M/uL Hgb 13.7 L (14.0-18.0) g/dL Hct 39.6 L (42-52) % MCV 87.0 (80-100) fL MCH 30.1 (25-34) pg MCHC 34.6 (32-36) g/dL RDW Std Deviation 41.8 (36.4-46.3) fL RDW Coeff of Dorothy 13.1 (11.5-14.5) % Plt Count 226 (130-400) K/uL MPV 10.4 (7.4-10.4) fL Immature Gran % (Auto) 0.1 % Neut % (Auto) 73.2 % Lymph % (Auto) 15.4 % [place] % (Auto) 10.5 % Eos % (Auto) 0.4 % Baso % (Auto) 0.4 % Neut # (Auto) 5.67 (1.4-6.5) K/uL Lymph # (Auto) 1.19 L (1.2-3.4) K/uL [place] # (Auto) 0.81 H (0.11-0.59) K/uL Eos # (Auto) 0.03 (0-0.5) K/uL Baso # (Auto) 0.03 (0-0.2) K/uL Immature Gran # (Auto) 0.01 (0.00-0.02) K/uL Sodium 136 (136-145) mmol/L Potassium 3.7 (3.5-5.1) mmol/L Chloride 104 (98-107) mmol/L Carbon Dioxide 24 (21-32) mmol/L Anion Gap 8.0 (3-11) BUN 10 (7-18) mg/dl Creatinine 0.85 (0.6-1.4) mg/dl Est Cr Clr Drug Dosing 92.1 ml/min Est GFR ( Amer) 112.1 Est GFR (Non-Af Amer) 96.7 BUN/Creatinine Ratio 11.8 (10-20) Glucose 111 H (70-99) mg/dl Calcium 9.2 (8.5-10.1) mg/dl Magnesium 1.9 (1.8-2.4) mg/dl Total Bilirubin 0.6 (0.2-1) mg/dl Direct Bilirubin 0.2 (0-0.2) mg/dl AST 20 (15-37) U/L ALT 28 (12-78) U/L Alkaline Phosphatase 88 (45-117) U/L Troponin I < 0.015 (0-0.045) ng/ml Total Protein 6.9 (6.4-8.2) gm/dl Albumin 3.6 (3.4-5.0) gm/dl Lipase 172 (73-393) U/L Urine Color Urine Appearance (Clear) Urine pH (4.5-7.5) Ur Specific [place] (1.000-1.030) Urine Protein (Negative) Urine Glucose (UA) (Negative) Urine Ketones (Negative) Urine Blood (Negative) Urine Nitrite (Negative) Urine Bilirubin (Negative) Urine Urobilinogen (Negative) Ur Leukocyte Esterase (Negative) Urine Opiates Screen Neg (Neg) Ur Methadone, Qual Neg (Neg) Urine Barbiturates Neg (Neg) Ur Phencyclidine (PCP) Neg (Neg) U Amphetamin/Meth Scrn Neg (Neg) MDMA (Ecstasy) Screen Neg (Neg) U Benzodiazepines Scrn Neg (Neg) Ur Cocaine Metabolite Neg (Neg) U Marijuana (THC) Screen Neg (Neg) 10/29/20 Range/Units 08:52 WBC (4.8-10.8) K/uL RBC (4.7-6.1) M/uL Hgb (14.0-18.0) g/dL Hct (42-52) % MCV (80-100) fL MCH (25-34) pg MCHC (32-36) g/dL RDW Std Deviation (36.4-46.3) fL RDW Coeff of [place] (11.5-14.5) % Plt Count (130-400) K/uL MPV (7.4-10.4) fL Immature Gran % (Auto) % Neut % (Auto) % Lymph % (Auto) % [place] % (Auto) % Eos % (Auto) % Baso % (Auto) % Neut # (Auto) (1.4-6.5) K/uL Lymph # (Auto) (1.2-3.4) K/uL [place] # (Auto) (0.11-0.59) K/uL Eos # (Auto) (0-0.5) K/uL Baso # (Auto) (0-0.2) K/uL Immature Gran # (Auto) (0.00-0.02) K/uL Sodium (136-145) mmol/L Potassium (3.5-5.1) mmol/L Chloride (98-107) mmol/L Carbon Dioxide (21-32) mmol/L Anion Gap (3-11) BUN (7-18) mg/dl Creatinine (0.6-1.4) mg/dl Est Cr Clr Drug Dosing ml/min Est GFR ( Amer) Est GFR (Non-Af Amer) BUN/Creatinine Ratio (10-20) Glucose (70-99) mg/dl Calcium (8.5-10.1) mg/dl Magnesium (1.8-2.4) mg/dl Total Bilirubin (0.2-1) mg/dl Direct Bilirubin (0-0.2) mg/dl AST (15-37) U/L ALT (12-78) U/L Alkaline Phosphatase (45-117) U/L Troponin I (0-0.045) ng/ml Total Protein (6.4-8.2) gm/dl Albumin (3.4-5.0) gm/dl Lipase (73-393) U/L Urine Color Yellow Urine Appearance Clear (Clear) Urine pH 5.5 (4.5-7.5) Ur Specific [place] 1.018 (1.000-1.030) Urine Protein Negative (Negative) Urine Glucose (UA) Negative (Negative) Urine Ketones Trace H (Negative) Urine Blood Negative (Negative) Urine Nitrite Negative (Negative) Urine Bilirubin Negative (Negative) Urine Urobilinogen Negative (Negative) Ur Leukocyte Esterase Negative (Negative) Urine Opiates Screen (Neg) Ur Methadone, Qual (Neg) Urine Barbiturates (Neg) Ur Phencyclidine (PCP) (Neg) U Amphetamin/Meth Scrn (Neg) MDMA (Ecstasy) Screen (Neg) U Benzodiazepines Scrn (Neg) Ur Cocaine Metabolite (Neg) U Marijuana (THC) Screen (Neg) Administered Medications Discontinued Medications Diphenhydramine HCl (Diphenhydramine 50 Mg/Ml Vial) 50 mg IV NOW STA Stop: 10/29/20 07:26 Last Admin: 10/29/20 07:46 Dose: 50 mg Documented by: [id number] Fentanyl Citrate (Fentanyl Citrate 100 Mcg/2 Ml Vial) 50 mcg IV NOW STA Stop: 10/29/20 07:26 Last Admin: 10/29/20 07:49 Dose: 50 mcg Documented by: [id number] Fentanyl Citrate (Fentanyl Citrate 100 Mcg/2 Ml Vial) 50 mcg IV NOW STA Stop: 10/29/20 08:47 Last Admin: 10/29/20 09:06 Dose: 50 mcg Documented by: [id number] Prochlorperazine (Compazine) 2 mls @ 1 mls/min IV ONE ONE Stop: 10/29/20 07:26 Last Admin: 10/29/20 07:49 Dose: 1 mls/min Documented by: [id number] Sodium Chloride (Nss 1000ml) 1,000 mls @ 999 mls/hr IV .Q1H1M ONE Stop: 10/29/20 08:25 Last Infusion: 10/29/20 08:56 Dose: 0 mls/hr Documented by: [id number] Admin: 10/29/20 07:44 Dose: 999 mls/hr Documented by: [id number] Sodium Chloride (Nss 1000ml) 1,000 mls @ 999 mls/hr IV .Q1H1M ONE Stop: 10/29/20 09:46 Last Infusion: 10/29/20 10:14 Dose: 0 mls/hr Documented by: [id number] Admin: 10/29/20 09:05 Dose: 999 mls/hr Documented by: [id number] Lorazepam (Ativan) 0.5 mg in 1 mls @ 1 mls/min IV NOW STA Stop: 10/29/20 09:52 Last Admin: 10/29/20 10:14 Dose: 1 mls/min Documented by: [id number] Ondansetron HCl (Ondansetron Inj 2 Mg/Ml 2 Ml Vial) 4 mg IV NOW STA Stop: 10/29/20 07:26 Last Admin: 10/29/20 07:46 Dose: 4 mg Documented by: [id number] Ondansetron HCl (Ondansetron Inj 2 Mg/Ml 2 Ml Vial) 4 mg IV NOW STA Stop: 10/29/20 08:47 Last Admin: 10/29/20 09:05 Dose: 4 mg Documented by: [id number] Discharge Plan Visit Data Chief Complaint: Vomiting Stated Complaint: NAUSEA, VOMITING ED Provider: Rangel Posey Discharge Problem: Intractable vomiting, Epigastric abdominal pain Patient Disposition: Admitted As Inpatient Discharge Instructions Interventions: ED Discharge Assessment Last Done: 10/29/20 13:41 Discharge Problem: Intractable vomiting Qualifiers: Vomiting type: unspecified Nausea presence: with nausea Qualified Code(s): R11.2 - Nausea with vomiting, unspecified
[2020-10-29 09:01] LABS: Bilirubin Urine Negative (Negative); Blood Urine Negative (Negative); Color Urine Yellow; Glucose Urine UA Negative (Negative); Ketones Urine Trace (Negative); Leukocyte Esterase Urine Negative (Negative); Nitrite Urine Negative (Negative); Protein Urine Negative (Negative); Specific Gravity Urine 1.018 (1.000-1.030); Urobilinogen Urine Negative (Negative); pH Urine 5.5 (4.5-7.5)
[2020-10-29 09:05] LABS: Appearance Urine Clear (Clear)
[2020-10-29 09:29] LABS: Amphetamines+Metham, Urine Neg (Neg); Barbiturates, Urine Neg (Neg); Benzodiazepine, Urine Neg (Neg); Cocaine, Urine Neg (Neg); MDMA (Ecstacy), Urine Neg (Neg); Methadone, Urine Neg (Neg); Opiate, Urine Neg (Neg); Phencyclidine, Urine Neg (Neg)
[2020-10-29] MEDS ORDERED: LORazepam 0.5 MG/1 ML VIAL IV STA (09:51)
--- NOTE | 2020-10-29 11:58 | History & Physical Report ---
Date of Service October 29, 2020 Assessment & Plan (1) Nausea & vomiting: Admission and Anticipated Discharge Date Admission Date: 55 yo M w/ pMHx. of esophageal cancer s/p surgery, HTN, anxiety, GERD on suboxone who presents with vomiting and persistent nausea, likely due to gastritis/esophagitis. Nausea likely due to esophagitis/gastritis given history of such although this could also represent gastroenteritis - admitted to med/surg - 25 episodes of vomiting reported - labs reassuring, follow CMP - lipase nl. so pancreatitis unlikely - if patient develops RUQ pain consider RUQ ultrasound to evaluate for cholecystitis although this seems less likely in this case given history and PE - Biofire negative, although this could still represent gastroenteritis - CXR with no acute process noted, xr abd/chest one day prior negative - GI consulted - clear liquid diet, NPO at midnight incase EGD in AM - IVF 125 ml/h LR - IV Protonix 20 mg BID - Zofran odt 4 Q6H - Compazine 5 BID PRN - monitor, support and reassure patient Constipation - started Miralax TID - continue home Senokot HTN - continue home Lisinopril 20 Anxiety - continue home Citalopram - continue home Clonidine insomnia - continue home Doxepin Suboxone use - currently getting 1/2 of 8mg-2 daily - f/u urine buprenorphine to evaluate for compliance Barretts eshophagus - continue home Carafate Concern for malignancy - weight loss w/ Hx. of Murry's esophageal and prior esophageal malignancy along with night sweats - no masses appreciated on PE, - if EGD performed this may help clarify along with potentially a CT neck vs. continued outpatient workup Concern for HIV - given pt. with Hx. candidiasis - test ordered, f/u DVT: SCD's Code: full Diet: clears, npo after midnight, IVF 125 LR (2 bags) Dispo: med/surg COVID: negative 10/29 Anticipated date of discharge: 10/30/20 History of Present Illness Chief Complaint: vomiting Primary Care Provider: Rafiq Boucher MD Shahbaz Arechiga is a 55-year-old male w/ pMHx. of esophageal cancer s/p surgery cancer free since 2010, gastritis, GERD, HTN, and Anxiety presenting with nausea. He was in the room with his eyes closed, he would answer most of my questions but did not answer all, and would not give details for follow up questions. He had presented to the ED on 10/28/2020 after eating pork and sauerkraut on and having an episode of vomiting associated with this, he was discharged but returned to the ER today with similar presentation. He has had 3 admissions in the last year for similar episodes. This episode he describes as very similar to when he was admitted last 07/07 - 07/10. Last EGD in February, results below. he follows with Dr. Herman. He woke up at 3 AM this morning and vomited 25 times between 3 - 3:30AM. He was unsure when the last time he had a bowel movement was, potentially a couple of days. He has not had any black or bloody stool. He has not had any recent upper respiratory infections. He has not had a HIV test in a, "long time". sounded like over a year, perhaps when starting to take Suboxone. He has been on Suboxone for about one and a half years. He has not had Suboxone today. He takes 1/2 tab 8 mg BID. He was started after taking Kratom a partial mu agonist, herbal supplement. He denies IVDU, denies recreational drug use including marijuana. Denies alcohol use, denies smoking. 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 EGD March 10, 2020 - patchy white plaques in the middle third of the esophagus found to be Bria. Moderate to severe esophagitis without bleeding was noted. Diffuse inflammation/edema/erythema found in the entire stomach with biopsies confirming reactive gastropathy and mild chronic gastritis, negative H. pylori and no intestinal metaplasia noted. No evidence for dysplasia or malignancy in esophagus or stomach biopsies. Allergies Allergy/AdvReac Type Severity Reaction Status Date / Time No Known Allergies Allergy Verified 10/29/20 08:23 Home Medications Medication Instructions Recorded Confirmed Type albuterol sulfate 90 mcg INHALATION Q6H PRN 03/09/20 10/29/20 History buprenorphine-naloxone 1 tab SUBLINGUAL QPM 03/09/20 10/29/20 History cholecalciferol (vitamin D3) 10 mcg PO QAM 03/09/20 10/29/20 History [Vitamin D3] doxepin 30 mg PO HS PRN 03/09/20 10/29/20 History ferrous sulfate [iron] 325 mg PO QAM 03/09/20 10/29/20 History sennosides 8.6 mg PO QAM PRN 03/09/20 10/29/20 History clonidine HCl 0.1 mg tablet 0.1 mg PO BID PRN #60 tab 05/22/20 10/29/20 Rx famotidine [Pepcid] 40 mg PO HS #90 tab 07/10/20 10/29/20 Rx prochlorperazine maleate 5 mg PO BID PRN #20 tab 07/10/20 10/29/20 Rx [Compazine] sucralfate 100 mg/mL oral 10 ml PO QID PRN #420 ml 08/16/20 10/29/20 Rx suspension citalopram 20 mg tablet 20 mg PO QAM #90 tab 08/22/20 10/29/20 Rx gabapentin 300 mg capsule 300 mg PO TID PRN #90 cap 08/24/20 10/29/20 Rx fluticasone propionate 50 1 spray NA BID #16 g 08/31/20 10/29/20 Rx mcg/actuation nasal spray,suspension lisinopril 20 mg tablet 20 mg PO QAM #30 tab 09/25/20 10/29/20 Rx ondansetron 4 mg disintegrating 4 mg PO Q6H PRN #30 tab 09/25/20 10/29/20 Rx tablet pantoprazole 40 mg tablet,delayed 40 mg PO BID #60 tab 09/28/20 10/29/20 Rx release promethazine 25 mg WA Q6H PRN #12 ea 10/27/20 10/29/20 Rx Past Med/Surg History Medical History Murry esophagus Depression Elevated prostate specific antigen (PSA) Esophageal cancer 2007 s/p chemo and radiation Fissure, anal Gastro-esophageal reflux disease with esophagitis Hypertension Iron deficiency anemia Kidney stones Surgical History History of colonoscopy History of cystoscopy History of esophagectomy History of esophagogastroduodenoscopy (EGD) History of repair of rotator cuff right and left shoulder History of right knee surgery meniscectomy Hx laparoscopic cholecystectomy Status post surgery neck surgery with hardware Family History Father Myocardial infarction Denies family history of Ovarian cancer Prostate cancer Breast cancer Colorectal cancer Social History Smoking Status: Former smoker Tobacco Type: Cigarettes Years Smoked: 10; Cigarettes Per Day: 10-20; Second Hand Exposure: Yes; Hx Alcohol Use: No Hx Substance Use: No Preferred Language: Occitan Communication Ability: Effective Visual Impairment: No Limitations Hearing Ability: Normal [employer] Chair Required: No Beliefs That Will Affect Care: None marital status: Current Living Situation: Spouse current occupational status: employed 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 Other Information That Helps Us Care for You: No Feels Safe at Home: Yes Dental Care, Regularly: Yes Physical Activity Frequency: Daily Seatbelt Use: always Sunscreen Use: No Assistive Devices: None Review of Systems Review of Systems: Constitutional: admits subjective fevers, denies chills admits night sweats (unclear how long this has been going on) admits 25 lb weight loss in the last month Head: denies trauma, headaches, changes in vision Neuro: denies slurring speech, admits an episode of syncope, admits numbness and tingling in his hands that is new for him ENT: denies vertigo Cardiac: denies leg swelling admits epigastric chest pain, admits orthopnea Pulm: admits cough GI: denies diarrhea : denies dysuria Physical Exam Constitutional: + thin and + lethargic Eyes: PERRL, conjunctivae normal, anicteric sclerae ENMT: external ear and nose normal, oropharynx normal no lesions on the posterior oropharynx, redness without any white plaques Neck: normal visual inspection no anterior or posterior LAD Respiratory: normal respiratory effort, lungs clear to auscultation Cardiovascular: RRR, no murmur, no edema Gastrointestinal (Abdomen): Inspection/Auscultation: + scaphoid; abdomen not distended - decreased bowel sounds - tender in the epigastric region Musculoskeletal: Extremities: strength 5/5 throughout Skin: does have some redness and scale around the nasolabial folds and below the eyes bilaterally Neurologic: PERRL, EOMI, accommodation nl, no face palsy, no dysarthria Psychiatric: Affect: + flat affect Mood: + depressed mood Results & Data Results & Data ([facility]) Vital Signs (Past 12 Hours) Vital Signs Temp Pulse Pulse Resp BP BP Pulse Ox 10/29/20 11:15 71 18 145/99 H 97 10/29/20 10:15 70 18 151/107 H 97 10/29/20 09:04 69 18 159/104 H 98 10/29/20 07:20 36.9 C 77 22 154/86 H 100 CBC Results Results Complete Blood Count Results: RBC 4.55 M/uL (4.7-6.1) L 10/29/20 WBC 7.74 K/uL (4.8-10.8) 10/29/20 Hgb 13.7 g/dL (14.0-18.0) L 10/29/20 Hct 39.6 % (42-52) L 10/29/20 Plt Count 226 K/uL (130-400) 10/29/20 Chemistry (BMP) Results BMP Results: Sodium 136 mmol/L (136-145) 10/29/20 Potassium 3.7 mmol/L (3.5-5.1) 10/29/20 Chloride 104 mmol/L (98-107) 10/29/20 BUN 10 mg/dl (7-18) 10/29/20 Creatinine 0.85 mg/dl (0.6-1.4) 10/29/20 Glucose 111 mg/dl (70-99) H 10/29/20 Code Status & VTE Plan VTE Prophylaxis Plan VTE Prophylaxis will be ordered: Yes Supervising Physician Co-Signing Physician Notes Patient seen and examined independently of PGY-2 Dr. Brown. Agree with history, exam findings, assessment and plan of care as described. In brief, Mr. Arechiga is a 55 year old male with history of esophageal cancer (s/p resection), elevated PSAas well as more recent bria esophagitis, gastritis on suboxone admitted with intractable nausea. He had 25 episodes of non-bloody, non-bilious emesis at 3am this morning. No changes in suboxone dosing (1/2 tab of the 8-2 suboxone BID). Denies recreational drug use. Received pain medication and anti-emetics in the ED without improvement in symptoms. Continues to have nausea and dizziness. Has not had any episodes of emesis since coming to the hospital. ED course reviewed. Vital signs reviewed. On exam, he is lying in bed with his arm over his eyes, with his eyes closed. He is non-toxic appearing. Mucus membranes are moist. Heart with regular rate and rhythm. No murmur. No edema of the lower extremities. Lungs are clear to auscultation in all lung montano with good air movement throughout. Abdomen with + bowel sounds. Soft, but with epigastric tenderness. Some guarding with epigastric palpation. Labs and imaging done in the ED reviewed. 1. nausea and vomiting. Prior admission for this in the fall. Suspect gastritis vs esophagitis...possible worsened with missing morning suboxone dose. Had gastric emptying scan ordered, but has not been able to get it yet. Can consider doing this as an inpatient. May also consider additional abdominal imaging if he is not improving clinically in the next day or two. GI consult--appreciate recommendations. PRN antiemetics and carafate. Continue PPI. MIVFs. Clear liquids. NPO at midnight. 2. hx of candidial esophagitis. Check HIV screen. 3. history of Murry's esophagus. Also having some B symptoms. Will defer to GI for decision regarding EGD. 4. Suboxone use. On this to wean off kratom. Checking bup level/presence prior to giving first subuxone dose here to ensure that he has been adherent with the medication. Other chronic issues stable--home meds will be continued. Admitted to OBS as we expect he will improve in the next 1-2 days. Resident Activity Tracking Resident Involvement: Resident Care Provided Care Provided: Adult Hospital Medicine
[2020-10-29] MEDS ORDERED: cloNIDine HCL 0.1 MG TAB PO PRN (14:22)
[2020-10-29] MEDS ORDERED: SUCRALFATE 1 GM/10 ML UDC PO PRN (14:22)
[2020-10-29] MEDS ORDERED: PROCHLORPERAZINE MALEATE 5 MG TAB PO PRN (14:22)
[2020-10-29] MEDS ORDERED: DOXEPIN HCL 10 MG CAPSULE PO PRN (14:22)
[2020-10-29] MEDS ORDERED: ONDANSETRON 4 MG OD TAB PO PRN (14:32)
[2020-10-29] MEDS ORDERED: SENNA 8.6 MG TAB PO PRN (14:32)
[2020-10-29] MEDS ORDERED: ALBUTEROL HFA 8 GM INHALER INH PRN (14:34)
[2020-10-29] MEDS ORDERED: ACETAMINOPHEN 325 MG TAB PO PRN (15:37)
[2020-10-29] MEDS ORDERED: ONDANSETRON INJ 2 MG/ML 2 ML VIAL IV PRN (15:37)
[2020-10-29] MEDS: LACTATED RINGER'S 1,000 ML IV SCH ×2 (15:39→22:32)
[2020-10-29] MEDS: PANTOprazole 40 MG in SYRINGE 0 ML IV SCH (20:08)
[2020-10-29] MEDS: FLUTICASONE PROPIONATE NA SPR 16 GM BTL SCH (20:08)
--- NOTE | 2020-10-29 22:12 | Electrocardiogram Report ---
Test Reason : Blood Pressure : / mmHG Vent. Rate : 067 BPM Atrial Rate : 078 BPM P-R Int : 122 ms QRS Dur : 092 ms QT Int : 376 ms P-R-T Axes : 064 027 052 degrees QTc Int : 397 ms Normal sinus rhythm with sinus arrhythmia Minimal voltage criteria for LVH, may be normal variant Septal infarct , age undetermined Abnormal ECG When compared with ECG of 08-SEP-2016 15:46, Septal infarct is now Present Confirmed by Dano Sosa ([id number]) on 10/29/2020 10:11:58 PM Referred By: REFERRED SELF Confirmed By:Dano Sosa
[2020-10-30 06:43] LABS: Basophils # (auto) 0.02 K/uL (0-0.2); Basophils % (auto) 0.3 %; Eosinophils # (auto) 0.03 K/uL (0-0.5); Eosinophils % (auto) 0.4 %; Hematocrit (blood only) 35.8 % (42-52); Hemoglobin 12.4 g/dL (14.0-18.0); Immature Granulocytes # (auto) 0.01 K/uL (0.00-0.02); Immature Granulocytes % (auto) 0.1 %; Lymphocytes # (auto) 1.63 K/uL (1.2-3.4); Mean Corpuscular Hgb Conc 34.6 g/dL (32-36); Mean Corpuscular Volume 86.7 fL (80-100); Mean Platelet Volume 10.6 fL (7.4-10.4); Monocytes % (auto) 11.8 %; Neutrophils # (auto) 4.31 K/uL (1.4-6.5); Neutrophils % (auto) 63.4 %; Platelet Count 227 K/uL (130-400); RDW Coefficient of Variation 12.9 % (11.5-14.5); RDW Standard Deviation 41.1 fL (36.4-46.3); Red Blood Count 4.13 M/uL (4.7-6.1)
[2020-10-30 07:16] LABS: Albumin Level 2.9 gm/dl (3.4-5.0); BUN Creatinine Ratio 11.1 (10-20); Calcium 8.3 mg/dl (8.5-10.1); Creatinine Clr Calc Pharmacy 111.8 ml/min; Est GFR (African American) 121.4; Est GFR (Non-African American) 104.8; Potassium 3.7 mmol/L (3.5-5.1)
[2020-10-30 07:21] LABS: Bilirubin,Total 0.5 mg/dl (0.2-1); Globulin 2.8 gm/dl (2.5-4.0); Total Protein 5.7 gm/dl (6.4-8.2)
[2020-10-30] MEDS ORDERED: BUPRENORPHINE/NALOXONE 8/2 MG TAB SL SCH ×3 (09:00→21:00)
--- NOTE | 2020-10-30 09:08 | Hospitalist Progress Note ---
Date of Service October 30, 2020 Assessment & Plan Admission and Anticipated Discharge Date Admission Date: 55 yo M PMHx esophageal cancer s/p surgical resection, HTN, anxiety, GERD with history gastritis/esophagitis, chronic Suboxone therapy admitted for nausea, vomiting, weight loss. Nausea/Vomiting/Odynophagia/Weight loss: - 25 episodes of vomiting reported prior to admission. - Normal lipase, CMP without LFT elevation. - CXR showed no acute process, no further imaging done so far this admission. - GI consult placed, to be seen tomorrow and for likely EGD tomorrow as well. - Curbside discussion with Dr. Najera as patient is a patient of Dr. Herman. - Currently on IV PPI, sucralfate for gastritis/esophagitis, Zofran and Compazine prn. - Full liquid diet and NPO at midnight for possible EGD tomorrow. - COVID 19 rapid negative, PCR ordered per protocol for potential EGD tomorrow. - Weight loss with history of esophageal ca certainly concerning for potential malignant process, however patient has also had several bouts of gastritis causing inability to tolerate PO which is certainly contributing. - HIV testing ordered given history of Dulce esophagitis, this is pending. Chronic Suboxone therapy: - Continue 1/2 dose of 8mg/2mg Suboxone daily. - Patient's intention is ultimately to d/c this medication. Prostate Lesion: - Patient had abnormally elevated PSA to 5.050 on 09/27/2020. - Prostate MRI performed on 10/19/2020 noted 18mm lesion in the left peripheral zone at the base of the mid gland that was potentially suspicious for clinically significant cancer. - Patient will require targeted biopsy of noted area in order to differenti ate malignant potential. Constipation: - Continue home Senokot. - Started Miralax TID given several days without BM. HTN: - Continue home Lisinopril 20mg daily. Anxiety: - Continue home Citalopram and clonidine. Insomnia: - Continue home Doxepin. Murry's esophagus: - Continue home Carafate. DVT: SCDs Code Status: FULL CODE Diet: full liquid diet, npo after midnight Dispo: med/surg, EGD tomorrow likely Supervising Physician Co-Signing Physician Notes I personally examined the patient and verified all murrieta points of history and exam, discussed case, and agree with decision making with Dr Townsend. feeling better as far as nausea -would like to eat. R2 d/w GI - possible EGD tomorrow but can make NPO p MN for that. notes weight loss and difficulty maintianing weight- but notes that his job precludes a lot of eating, eating too much or drinking too much causes significant bloating, and dumping syndrome tend s to be bad when he takes in too many carbs. vitals noted nad heent nc at mmm (+) epigastric ttp no guarding no rebound no masses nausea/vomiting - now better - liquid diet, anticipate EGD tomorrow since prior yeast, cancer, etc allows for unfortunately broad ddx weight loss/ malnutrition - severe calorie given overall degree of pounds lost - but fortunately mild protein at worst. suspect chronically negative calorie balance due to a multitude of factors (job schedule, bloating if too much at once, dumping if too many carbs at once) - BEE calculates to about 1850 per day - educated on basics of calories, taught how to track. will continue to try to help work around barriers. obviously w/u as above also to r/o recurrent malignancy. otherwise as above Subjective Patient with some nausea overnight. No vomiting. Reports feeling hungry this afternoon. Some discomfort in epigastric area but improved as compared the last several days. Denies shortness of breath or chest pain. Review of Systems Review of Systems: All systems reviewed & are unremarkable except as noted in HPI & below Constitutional: no fever, no chills and no malaise Respiratory: no cough and no dyspnea Cardiovascular: no chest pain, no palpitations and no edema Gastrointestinal: + abdominal pain and + nausea; no vomiting, no constipation and no diarrhea/loose stools Physical Exam Constitutional: well developed and + thin; no acute distress Eyes: PERRL, conjunctivae normal, anicteric sclerae ENMT: external ear and nose normal, oropharynx normal Neck: normal visual inspection Respiratory: normal respiratory effort, lungs clear to auscultation Cardiovascular: RRR, no murmur, no edema Gastrointestinal (Abdomen): Inspection/Auscultation: normal bowel sounds Percussion/Palpation: + abdomen tender (epigastric region, mild) and abdomen soft; no guarding Musculoskeletal: no clubbing or cyanosis Skin: no rashes, warm and dry Neurologic: AAOx3, normal speech. Normal visual acuity bilaterally. Bilateral UE, LE, and face without sensory or motor deficits. No pronator drift. No tremor. No ataxia. Psychiatric: Orientation: alert and oriented x 3 Affect: + anxious affect Results & Data Results & Data ([facility]) Vital Signs (Past 12 Hours) Vital Signs Temp Pulse Resp BP Pulse Ox 10/30/20 07:26 37 C 70 18 146/87 H 96 10/29/20 23:00 37.1 C 80 16 126/80 96 Resident Activity Tracking Resident Involvement: Resident Care Provided Care Provided: Adult [facility] Medicine
[2020-10-30] MEDS: PANTOprazole 40 MG in SYRINGE 0 ML IV SCH ×2 (10:02→21:11)
[2020-10-30] MEDS: FLUTICASONE PROPIONATE NA SPR 16 GM BTL SCH ×2 (10:03→21:11)
[2020-10-30] MEDS: lisinopril 20 MG TAB PO SCH (10:03)
[2020-10-30] MEDS: CITALOPRAM 20 MG TAB PO SCH (10:03)
--- NOTE | 2020-10-30 18:20 | Billing Data ---
Date of Service October 30, 2020 Coding Level of Care Code 81724 Subseq Obs Care Lvl 3
[2020-10-30 20:06] LABS: Influenza A virus by PCR Negative (Neg); Influenza B virus by PCR Negative (Neg); RSV by PCR Negative (Neg); SARS CoV2 RNA(COVID-19) InHosp NEGATIVE (Negative)
[2020-10-30] MEDS: SUCRALFATE 1 GM/10 ML UDC PO SCH (21:11)
--- NOTE | 2020-10-30 21:26 | Communication Note ---
Date of Service: October 30, 2020 Was alerted at 930 to the patient had alerted nursing that his home dose of Suboxone is one half tab twice daily. Admission history and physical confirmed this. Transition the patient to 0.5 tabs of Suboxone twice daily. Resident Activity Tracking Resident Involvement: Resident Care Provided Care Provided: Adult [facility] Medicine
[2020-10-30] MEDS: BUPRENORPHINE/NALOXONE 8/2 MG TAB SL SCH (21:46)
[2020-10-31] MEDS: PANTOprazole 40 MG in SYRINGE 0 ML IV SCH (08:54)
[2020-10-31] MEDS: BUPRENORPHINE/NALOXONE 8/2 MG TAB SL SCH (08:55)
[2020-10-31] MEDS ORDERED: BUPRENORPHINE/NALOXONE 8/2 MG TAB SL SCH (09:00)
--- NOTE | 2020-10-31 09:40 | Gastrointestinal Consultation ---
Date of Consultation October 31, 2020 Assessment & Plan (1) Nausea & vomiting: possible recurrent dulce vs. PUD or other infection. Recs: Proceed with EGD to further evaluate, this procedure is medically necessary and urgent/emergent due to the ongoing intractable vomiting requiring hospital admission and leading to dehydration risks/benefits and procedure discussed with patient, who agrees to proceed NPO Thank you for allowing me to participate in the care of this patient. History of Present Illness Attending Physician: 55-year-old male w/ pMHx. of esophageal cancer s/p surgery cancer free since 2010, gastritis, GERD, HTN, and Anxiety presenting with nausea and vomiting. He has had these same issues before in February when EGD showed dulce and was treated for this, got better. Now over the last few days to week has been having recurrent n/v after eating, no dysphagia. Denies steroid or inhaler use. EGD March 10, 2020 - patchy white plaques in the middle third of the esophagus found to be Dulce. Moderate to severe esophagitis without bleeding was noted. Diffuse inflammation/edema/erythema found in the entire stomach with biopsies confirming reactive gastropathy and mild chronic gastritis, negative H. pylori and no intestinal metaplasia noted. No evidence for dysplasia or malignancy in esophagus or stomach biopsies. Labs reviewed, mild anemia noted. VSS. Allergies Allergy/AdvReac Type Severity Reaction Status Date / Time No Known Allergies Allergy Verified 10/29/20 08:23 Home Medications Medication Instructions Recorded Confirmed Type albuterol sulfate 90 mcg INHALATION Q6H PRN 03/09/20 10/29/20 History buprenorphine-naloxone 1 tab SUBLINGUAL QPM 03/09/20 10/29/20 History cholecalciferol (vitamin D3) 10 mcg PO QAM 03/09/20 10/29/20 History [Vitamin D3] doxepin 30 mg PO HS PRN 03/09/20 10/29/20 History ferrous sulfate [iron] 325 mg PO QAM 03/09/20 10/29/20 History sennosides 8.6 mg PO QAM PRN 03/09/20 10/29/20 History clonidine HCl 0.1 mg tablet 0.1 mg PO BID PRN #60 tab 05/22/20 10/29/20 Rx famotidine [Pepcid] 40 mg PO HS #90 tab 07/10/20 10/29/20 Rx prochlorperazine maleate 5 mg PO BID PRN #20 tab 07/10/20 10/29/20 Rx [Compazine] sucralfate 100 mg/mL oral 10 ml PO QID PRN #420 ml 08/16/20 10/29/20 Rx suspension citalopram 20 mg tablet 20 mg PO QAM #90 tab 08/22/20 10/29/20 Rx gabapentin 300 mg capsule 300 mg PO TID PRN #90 cap 08/24/20 10/29/20 Rx fluticasone propionate 50 1 spray NA BID #16 g 08/31/20 10/29/20 Rx mcg/actuation nasal spray,suspension lisinopril 20 mg tablet 20 mg PO QAM #30 tab 09/25/20 10/29/20 Rx ondansetron 4 mg disintegrating 4 mg PO Q6H PRN #30 tab 09/25/20 10/29/20 Rx tablet pantoprazole 40 mg tablet,delayed 40 mg PO BID #60 tab 09/28/20 10/29/20 Rx release promethazine 25 mg NM Q6H PRN #12 ea 10/27/20 10/29/20 Rx Patient History Medical History Murry esophagus Depression Elevated prostate specific antigen (PSA) Esophageal cancer 2007 s/p chemo and radiation Fissure, anal Gastro-esophageal reflux disease with esophagitis Hypertension Iron deficiency anemia Kidney stones Surgical History History of colonoscopy History of cystoscopy History of esophagectomy History of esophagogastroduodenoscopy (EGD) History of repair of rotator cuff right and left shoulder History of right knee surgery meniscectomy Hx laparoscopic cholecystectomy Status post surgery neck surgery with hardware Family History Father Myocardial infarction Denies family history of Ovarian cancer Prostate cancer Breast cancer Colorectal cancer Social History Smoking Status: Former smoker Tobacco Type: Cigarettes Years Smoked: 10; Cigarettes Per Day: 10-20; Second Hand Exposure: Yes; Hx Alcohol Use: No Hx Substance Use: No Preferred Language: Macedonian Communication Ability: Effective Visual Impairment: No Limitations Hearing Ability: Normal Director Of [employer] Services Required: No Beliefs That Will Affect Care: None marital status: Current Living Situation: Spouse current occupational status: employed 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 Other Information That Helps Us Care for You: No Feels Safe at Home: Yes Dental Care, Regularly: Yes Physical Activity Frequency: Daily Seatbelt Use: always Sunscreen Use: No Assistive Devices: None Review of Systems Constitutional: no fever, no chills and no weight loss Eyes: as per Subjective / HPI Ear, Nose, Mouth, Throat: as per Subjective / HPI Respiratory: no dyspnea and no dyspnea on exertion Cardiovascular: no chest pain and no palpitations Gastrointestinal: as per Subjective / HPI Musculoskeletal: no joint pain and no swelling Integumentary: no rash and no lesions Neurologic: no numbness and no paresthesia Psychiatric: no depression and no anxiety Endocrine: no fatigue Hematologic / Lymphatic: no easy bleeding and no easy bruising Physical Exam Constitutional: WD/WN, vitals as above Eyes: EOM intact bilaterally Neck: normal visual inspection Respiratory: normal respiratory effort, lungs clear to auscultation Cardiovascular: RRR, no murmur, no edema Gastrointestinal (Abdomen): Inspection/Auscultation: abdomen normal to i nspection; abdomen not distended Percussion/Palpation: abdomen soft; abdomen nontender and no hepatosplenomegaly Musculoskeletal: Extremities: no cyanosis Gait: normal gait Skin: no rashes, warm and dry Neurologic: moves all extremities Psychiatric: A+Ox3, euthymic affect Results & Data ([facility]) Vital Signs (Past 12 Hours) Vital Signs Temp Pulse Resp BP Pulse Ox 10/31/20 09:18 36.9 C 16 141/87 H 10/31/20 08:01 36.9 C 73 18 152/95 H 96 10/30/20 23:50 36.8 C 66 20 153/86 H 96 PG Care Time/CCT Total # of Minutes Spent Total Time Spent with Patient: Total time spent is greater than 50% in coordination of care (as documented) at patient's floor/unit and/or counseling patient: Coding Level of Care Code 08653 Inpt Consult Level 4 Diagnoses Nausea & vomiting R11.2
--- NOTE | 2020-10-31 09:48 | Anesthesiology Consultation ---
Date of Service October 31, 2020 Covid 19 negative on 10/29/20. Assessment & Plan (1) Encounter for pre-operative examination: Chart Review Chart Review: Acceptable Risk for Surgery and Patient NOT seen in Pre Admission Testing Consults Requested none History Surgery Operation Date: 10/31/20 08:30 Proposed Procedures p Esophagogastroduodenoscopy Dr. Najera - Jhonny Najera MD Height/Weight Height: 6 ft Weight: 67.9 kg Allergies Allergy/AdvReac Type Severity Reaction Status Date / Time No Known Allergies Allergy Verified 10/29/20 08:23 Medications Home Medications Medication Instructions Recorded Confirmed Last Taken albuterol sulfate 90 mcg INHALATION Q6H PRN 03/09/20 10/29/20 Unknown buprenorphine-naloxone 1 tab SUBLINGUAL QPM 03/09/20 10/29/20 10/28/20 cholecalciferol (vitamin D3) 10 mcg PO QAM 03/09/20 10/29/20 10/28/20 [Vitamin D3] doxepin 30 mg PO HS PRN 03/09/20 10/29/20 Unknown ferrous sulfate [iron] 325 mg PO QAM 03/09/20 10/29/20 10/28/20 sennosides 8.6 mg PO QAM PRN 03/09/20 10/29/20 10/26/20 clonidine HCl 0.1 mg tablet 0.1 mg PO BID PRN #60 tab 05/22/20 10/29/20 10/28/20 famotidine [Pepcid] 40 mg PO HS #90 tab 07/10/20 10/29/20 10/28/20 prochlorperazine maleate 5 mg PO BID PRN #20 tab 07/10/20 10/29/20 10/28/20 [Compazine] sucralfate 100 mg/mL oral 10 ml PO QID PRN #420 ml 08/16/20 10/29/20 10/28/20 suspension citalopram 20 mg tablet 20 mg PO QAM #90 tab 08/22/20 10/29/20 10/28/20 gabapentin 300 mg capsule 300 mg PO TID PRN #90 cap 08/24/20 10/29/20 10/28/20 fluticasone propionate 50 1 spray NA BID #16 g 08/31/20 10/29/20 10/28/20 mcg/actuation nasal spray,suspension lisinopril 20 mg tablet 20 mg PO QAM #30 tab 09/25/20 10/29/20 10/28/20 ondansetron 4 mg disintegrating 4 mg PO Q6H PRN #30 tab 09/25/20 10/29/20 10/28/20 tablet pantoprazole 40 mg tablet,delayed 40 mg PO BID #60 tab 09/28/20 10/29/20 10/28/20 release promethazine 25 mg HI Q6H PRN #12 ea 10/27/20 10/29/20 10/28/20 Active Medications Generic Name Dose Route Start Last Admin Trade Name Freq PRN Reason Stop Dose Admin Buprenorphine/Naloxone 0.5 tab 10/30/20 21:30 10/31/20 08:55 Buprenorphine/Naloxone 8/2 Mg Tab SL 11/29/20 21:29 0.5 tab BID YANETH Administration Citalopram Hydrobromide 20 mg 10/30/20 09:00 10/30/20 10:03 Citalopram 20 Mg Tab PO 11/29/20 08:59 20 mg QAM YANETH Administration Doxepin HCl 30 mg 10/29/20 14:22 10/31/20 02:01 Doxepin Hcl 10 Mg Capsule PO 11/28/20 14:21 30 mg HS PRN Administration Insomnia Fluticasone Propionate 1 sprays 10/29/20 21:00 10/30/20 21:11 Fluticasone Propionate Na Spr 16 Gm Btl NA 11/28/20 20:59 1 sprays BID YANETH Administration Pantoprazole Sodium 40 mg/ 10 mls @ 5 mls/min 10/29/20 21:00 10/31/20 08:54 Syringe IV 11/28/20 20:59 5 mls/min BID YANETH Administration Lisinopril 20 mg 10/30/20 09:00 10/30/20 10:03 Lisinopril 20 Mg Tab PO 11/29/20 08:59 20 mg QAM YANETH Administration Sucralfate 1 gm 10/30/20 21:00 10/30/20 21:11 Sucralfate 1 Gm/10 Ml Udc PO 11/29/20 20:59 1 gm ACHS YANETH Administration NPO Date Last Intake of Fluids: 10/30/20 Time Last Intake of Fluids: 22:30 Date Last Intake of Solids: 10/27/20 Past Medical History Medical History Murry esophagus Depression Elevated prostate specific antigen (PSA) Esophageal cancer 2008 s/p chemo and radiation Fissure, anal Gastro-esophageal reflux disease with esophagitis Hypertension Iron deficiency anemia Kidney stones Past Family History Family History Father Myocardial infarction Denies family history of Ovarian cancer Prostate cancer Breast cancer Colorectal cancer Past Surgical History Surgical History History of colonoscopy History of cystoscopy History of esophagectomy History of esophagogastroduodenoscopy (EGD) History of repair of rotator cuff right and left shoulder History of right knee surgery meniscectomy Hx laparoscopic cholecystectomy Status post surgery neck surgery with hardware Social History Smoking Status: Former smoker tobacco type: cigarettes Smoking cigarettes per day: 10-20 Hx Alcohol Use: No Hx Substance Use: No substance use type: other Substance Use Type Other:: Suboxone Last Used Substance Other:: states he had it 10/28/20 Physical Exam Vital Signs Last Vital Signs Temp 36.9 C 10/31/20 09:32 Pulse 72 10/31/20 09:32 Resp 16 10/31/20 09:32 BP 141/87 H 10/31/20 09:32 Pulse Ox 97 10/31/20 09:32 Testing Laboratory Results 10/30/20 06:09 10/30/20 06:09 Urine Color Yellow 10/29/20 08:52 Urine Appearance Clear (Clear) 10/29/20 08:52 Urine pH 5.5 (4.5-7.5) 10/29/20 08:52 Ur Specific [place] 1.018 (1.000-1.030) 10/29/20 08:52 Urine Protein Negative (Negative) 10/29/20 08:52 Urine Glucose (UA) Negative (Negative) 10/29/20 08:52 Urine Ketones Trace (Negative) H 10/29/20 08:52 Urine Nitrite Negative (Negative) 10/29/20 08:52 Ur Leukocyte Esterase Negative (Negative) 10/29/20 08:52
[2020-10-31] MEDS ORDERED: ATROPINE SULFATE 0.1 MG/ML 10ML SYR IV PRN (09:50)
[2020-10-31] MEDS ORDERED: PHENYLEPHRINE 100MCG/ML 5ML SYR IV PRN (09:50)
[2020-10-31] MEDS ORDERED: fentaNYL citrate 100 MCG/2 ML VIAL IV PRN (09:50)
[2020-10-31] MEDS ORDERED: LABETALOL HCL IV 5 MG/ML 20ML IV PRN (09:50)
[2020-10-31] MEDS ORDERED: ePHEDrine sulfate 50 MG/ML AMP IV PRN (09:50)
--- NOTE | 2020-10-31 10:38 | GI REPORT ---
Patient Name: Shahbaz Arechiga Procedure Date: 10/31/2020 9:22 AM Date of : 1965 Admit Type: Inpatient Age: 55 Gender: Male Attending MD: Jhonny Najera MD Procedure: Upper GI endoscopy Providers: Jhonny Najera MD Referring MD: Usman Schmitt Indications: Nausea with vomiting Medicines: Monitored Anesthesia Care Complications: No immediate complications. Estimated blood loss: None. Estimated Blood Loss: Estimated blood loss: none. Procedure: Pre-Anesthesia Assessment: - Prior Anticoagulants: The patient has taken no previous anticoagulant or antiplatelet agents. - ASA Grade Assessment: II - A patient with mild systemic disease. After obtaining informed consent, the endoscope was passed under direct vision. Throughout the procedure, the patient's blood pressure, pulse, and oxygen saturations were monitored continuously. The Endoscope was introduced through the mouth, and advanced to the second part of duodenum. The upper GI endoscopy was accomplished without difficulty. The patient tolerated the procedure well. Findings: Moderately severe esophagitis with no bleeding was found. Biopsies were taken with a cold forceps for histology. Estimated blood loss: none. The entire examined stomach was normal. Biopsies were taken with a cold forceps for Helicobacter pylori testing. Estimated blood loss: none. The duodenal bulb and second portion of the duodenum were normal. Impression: - Moderately severe esophagitis. Biopsied. - Normal stomach. Biopsied. - Normal duodenal bulb and second portion of the duodenum. Recommendation: - Return patient to [facility] for [facility] care. - Advance diet as tolerated today. -start protonix 40 mg BID -start carafate liquid 5 mL QID - Await pathology results. Jhonny Najera MD 10/31/2020 10:37:30 AM This report has been signed electronically. Note Initiated On: 10/31/2020 9:22 AM Number of Addenda: 0 I attest to the content of the Intraoperative Record and orders documented therein, exceptions below {[id number]}
--- NOTE | 2020-10-31 10:41 | Procedure Note ---
Procedure Note Date of Service October 31, 2020 GI brief procedure note EGD findings: moderate esophagitis with shallow ulcerations, normal stomach and duodenum. biopsied. no evidence of bria. Recs: --f/u path results --start protonix 40 mg BID -- start carafate liquid 5 mL QID -- advance diet as tolerated --consider gastric emptying study as an outpatient if no improvement in 2-3 weeks Jhonny Najera MD Gastroenterology Coding
--- NOTE | 2020-10-31 11:07 | Anesthesiology Progress Note ---
Date of Service October 31, 2020 Anesthesia Post Procedure Vital Signs Vital Signs: Temp Pulse Pulse Pulse Resp BP Pulse Ox 10/31/20 11:00 36.3 C L 67 20 133/80 96 10/31/20 10:50 76 22 134/88 96 10/31/20 10:44 36.3 C L 72 23 123/74 97 10/31/20 09:32 36.9 C 72 16 141/87 H 97 10/31/20 09:18 36.9 C 16 141/87 H 10/31/20 08:01 36.9 C 73 18 152/95 H 96 10/30/20 23:50 36.8 C 66 20 153/86 H 96 10/30/20 15:26 36.9 C 72 18 137/86 94 Pain Intensity Abdomen: Pain Intensity: 2 Transfer of Care Handoff Completed per policy Notes Mental Status: alert / awake / arousable Patient Amnestic to Procedure: Yes Nausea / Vomiting: adequately controlled Pain: adequately controlled Airway Patency, RR, SpO2: stable & adequate BP & HR: stable & adequate Hydration State: stable & adequate Anesthetic Complications: no major complications apparent and Pt Satisfied with anesthetic care
--- NOTE | 2020-10-31 11:22 | Discharge Summary ---
Date of Service October 31, 2020 Admission HPI Per Admitting Provider Shahbaz Arechiga is a 55-year-old male w/ pMHx. of esophageal cancer s/p surgery cancer free since 2010, gastritis, GERD, HTN, and Anxiety presenting with nausea. He was in the room with his eyes closed, he would answer most of my questions but did not answer all, and would not give details for follow up questions. He had presented to the ED on 10/28/2020 after eating pork and sauerkraut on and having an episode of vomiting associated with this, he was discharged but returned to the ER today with similar presentation. He has had 3 admissions in the last year for similar episodes. This episode he describes as very similar to when he was admitted last 07/07 - 07/10. Last EGD in February, results below. he follows with Dr. Herman. He woke up at 3 AM this morning and vomited 25 times between 3 - 3:30AM. He was unsure when the last time he had a bowel movement was, potentially a couple of days. He has not had any black or bloody stool. He has not had any recent upper respiratory infections. He has not had a HIV test in a, "long time". sounded like over a year, perhaps when starting to take Suboxone. He has been on Suboxone for about one and a half years. He has not had Suboxone today. He takes 1/2 tab 8 mg BID. He was started after taking Kratom a partial mu agonist, herbal supplement. He denies IVDU, denies recreational drug use including marijuana. Denies alcohol use, denies smoking. 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 EGD March 10, 2020 - patchy white plaques in the middle third of the esophagus found to be Dulce. Moderate to severe esophagitis without bleeding was noted. Diffuse inflammation/edema/erythema found in the entire stomach with biopsies confirming reactive gastropathy and mild chronic gastritis, negative H. pylori and no intestinal metaplasia noted. No evidence for dysplasia or malignancy in esophagus or stomach biopsies. Admission Exam Per Admitting Provider Constitutional: + thin and + lethargic Eyes: PERRL, conjunctivae normal, anicteric sclerae ENMT: external ear and nose normal, oropharynx normal no lesions on the posterior oropharynx, redness without any white plaques Neck: normal visual inspection no anterior or posterior LAD Respiratory: normal respiratory effort, lungs clear to auscultation Cardiovascular: RRR, no murmur, no edema Gastrointestinal (Abdomen): Inspection/Auscultation: + scaphoid; abdomen not distended - decreased bowel sounds - tender in the epigastric region Musculoskeletal: Extremities: strength 5/5 throughout Skin: does have some redness and scale around the nasolabial folds and below the eyes bilaterally Neurologic: PERRL, EOMI, accommodation nl, no face palsy, no dysarthria Psychiatric: Affect: + flat affect Mood: + depressed mood Principal Diagnosis moderately severe esophagitis Discharge Exam Constitutional WD/WN, vitals as above Respiratory normal respiratory effort, lungs clear to auscultation Cardiovascular RRR, no murmur, no edema Gastrointestinal (Abdomen) Inspection/Auscultation: normal bowel sounds; abdomen not distended Percussion/Palpation: + abdomen tender (mild, epigastric) and abdomen soft Skin no rashes, warm and dry Psychiatric A+Ox3, euthymic affect Discharge Data Allergies Allergy/AdvReac Type Severity Reaction Status Date / Time No Known Allergies Allergy Verified 10/29/20 08:23 Consultations 10/29/20 10:28 ED Decision to Admit Stat 10/30/20 15:25 Consult Gastroenterology Routine Procedures Performed Operation Date: 10/31/20 08:30 Actual Procedures p EGD Biopsy Cytology - Re[facility] Hospital Course (1) Nausea & vomitin yo M PMHx esophageal cancer s/p surgical resection, HTN, anxiety, GERD with history gastritis/esophagitis, chronic Suboxone therapy admitted for nausea, vomiting, weight loss. Nausea/Vomiting/Odynophagia/Weight loss: - 25 episodes of vomiting reported prior to admission. - Normal lipase, CMP without LFT elevation. - CXR showed no acute process, no further imaging done so far this admission. - GI consult placed, EGD performed which showed moderately severe esophagitis without evidence of Candidal esophagitis. - PPI PO BID, sucralfate qACHS, otherwise continue home medications. Decrease acid intake in diet. - Biopsies of esophagus and stomach taken, pathology pending. - Follow up after discharge with Dr. Herman. - Patient's weight loss over several months likely due to uncontrolled esophagitis causing stomach irritation and vomiting. - Have advised "graving" behavior throughout the day and focusing on higher calorie foods to meet his energy expenditure of about 1850 calories daily. Advised gentle gut foods similar to BRAT diet and to avoid high acid foods given esophagitis. Gave guidance regarding not lying flat for at least 1 hour after eating. - HIV testing ordered given history of Dulce esophagitis, this is still pending. Chronic Suboxone therapy: - Continue half dose of 8mg/2mg Suboxone BID. - Patient's intention is ultimately to d/c this medication. - Defer to PCP and pain management. Prostate Lesion: - Patient had abnormally elevated PSA to 5.050 on 09/27/2020. - Prostate MRI performed on 10/19/2020 noted 18mm lesion in the left peripheral zone at the base of the mid gland that was potentially suspicious for clinically significant cancer. - Patient will require targeted biopsy of noted area in order to differentiate malignant potential. - Will require Urology follow up if not already scheduled. Constipation: - Continue home Senokot. - Started Miralax TID given several days without BM. Can continue and titrate as needed for 1 soft formed BM daily. HTN: - Continue home Lisinopril 20mg daily. Anxiety: - Continue home Citalopram and clonidine. Insomnia: - Continue home Doxepin. Murry's esophagus: - Continue home Carafate but change PRN to qACHS. Dispo: home with self care. Follow up with GI in 4-6 weeks or earlier per their schedulers. (2) Esophagitis determined by endoscopy: (3) Epigastric abdominal pain: (4) Hypertension: (5) Chronically on opiate therapy: Total Time Total Time Spent Total Time Spent (In Minutes): see attending attestation Discharge Plan Discharge Items Patient Disposition: Home - Self-Care Reason For Visit: VOMITING Discharge Diagnosis: moderate to severe esophagitis Activity: Per Instructions section Non-emergency contact: Primary Care Provider and Canine Service [employer] Call non-emergency contact if: you have any medication questions, your symptoms worsen and your temperature is above 101 Follow-up/Referrals: Vishal Herman DO [Physician] - 12/05/20 9:20 am (4-6 weeks after discharge APPT WITH [facility]) Rafiq Boucher III, MD [Primary Care Provider] - 11/07/20 11:00 am (7-14 days after discharge STEFFEN MAYA WILL SEE YOU AT THIS APPT.) Diet: Regular and Low Fat Addtl Attending Provider Instructions: You were admitted to the hospital for nausea, vomiting and abdominal pain. We gave you medication through IV and orally to decrease stomach acid. We had GI see you and they performed an EGD, which showed evidence of moderately severe esophagitis. There was not evidence of Dulce infection. You were started on Pepcid (famotidine) twice a day - to be taken for 14 days, in addition to your regular Protonix (pantoprazole) 40 milligrams orally twice daily, and Carafate (sucralfate) 1 gram with every meal and before bed. This medication was previously as needed, but now you will take with every meal and before bed regardless of symptoms. You will do this until you have follow up with [facility], in about 4-6 weeks. Please call their office if not called to schedule an appointment. You will otherwise take all of your home medications. You should have follow up with your primary care doctor in 1-2 weeks following discharge from the hospital. If you are not contacted by their office please call to schedule a follow up. If you have worsening nausea and vomiting or abdominal pain despite the above treatment changes, then please come back to the hospital for evaluation. As far as weight loss - fortunately since we did not see anything looking like a recurrence of your esophageal cancer (and the prostate lesion, while appearing concerning for cancer, fortunately appears to be isolated to just the prostate), it means that the weight loss really most likely is just from not getting in enough calories. As we discussed, a calorie is a unit of energy as measured to fuel the human body -- and much like keeping a budget, if you're not getting in enough calories you won't be able to maintain or gain weight. Doing the math on you (you can simply google "basal energy expenditure" and plug in your age/height/weight) you calculate to be a minimum of about 1850 calories per day. Anything less than that, you will continue to lose weight; hitting exactly that will help you maintain your current weight; exceeding that will have you gain weight. Your angeline should help you track things well - it has your goal set at nearly 2400 which will be hard to achieve, but if you look at it as a goal of "i can't go to sleep unless i've had at least 1850 calories" you should be able to stop the weight loss problem. Given your esophagus and the dumping syndrome, there will be a few hurdles - but you can work around them. Most important will probably be to just have something of calorie value around you all the time - so that you can "graze" throughout the day rather than trying to get in all the calories in a narrow period of time. Further, experiment with different high- calorie foods and drinks so that you can find what works well for you -- for instance as we discussed there are high protein boosts (that might trigger the dumping syndrome less than a high carb shake) or there are ones that have more than 500 calories in 8 ounces of fluids (which can possibly make it easy to take in a lot of calories without much bloating - although it could trigger the dumping syndrome) -- but the big picture idea is really just to work by trial and error until you have a system that allows you to get in enough every day (with enough variety that it hopefully doesn't get boring!). Pending Studies at Discharge: Yes Studies:: esophageal and stomach biopsies, will be discussed by Dr. Herman Stand-Alone Forms: [facility], Smoking Cessation Medications and DC Order Prescriptions: Continued clonidine HCl 0.1 mg tablet 0.1 mg PO BID PRN (Reason: Anxiety) Qty: 60 RF: 11 citalopram 20 mg tablet 20 mg PO QAM Qty: 90 RF: 3 gabapentin 300 mg capsule 300 mg PO TID PRN (Reason: Pain) Qty: 90 RF: 5 fluticasone propionate 50 mcg/actuation spray,suspension 1 spray NA BID Qty: 16 RF: 5 ondansetron 4 mg tablet,disintegrating 4 mg PO Q6H PRN (Reason: Nausea) Qty: 30 RF: 0 lisinopril 20 mg tablet 20 mg PO QAM Qty: 30 RF: 11 pantoprazole 40 mg tablet,delayed release (DR/EC) 40 mg PO BID Qty: 60 RF: 1 sulfamethoxazole-trimethoprim [Bactrim DS] 800-160 mg tablet 1 tab PO Q12H Qty: 6 RF: 0 prochlorperazine maleate [Compazine] 5 mg tablet 5 mg PO BID PRN (Reason: nausea and vomiting) Qty: 20 RF: 0 doxepin 10 mg Capsule 30 mg PO HS PRN (Reason: Insomnia) RF: 0 ferrous sulfate [iron] 325 mg (65 mg iron) Tablet 325 mg PO QAM RF: 0 cholecalciferol (vitamin D3) [Vitamin D3] 10 mcg (400 unit) Capsule 10 mcg PO QAM RF: 0 sennosides 8.6 mg Capsule 8.6 mg PO QAM PRN (Reason: Constipation) RF: 0 albuterol sulfate 90 mcg/actuation Aero Powdr Breath Act W/Sensor 90 mcg INHALATION Q6H PRN (Reason: Wheezing) RF: 0 buprenorphine-naloxone 8-2 mg Tablet, Sublingual 1 tab SUBLINGUAL QPM RF: 0 promethazine 25 mg suppository 25 mg [place] Q6H PRN (Reason: nausea and vomiting) Qty: 12 RF: 0 Changed sucralfate 100 mg/mL suspension 10 ml PO QID Qty: 420 RF: 11 famotidine [Pepcid] 40 mg tablet 20 mg PO BID Qty: 60 RF: 3 Discharge Orders: Discharge Order (Routine); Ordered 10/31/20 Ordered By: Usman Schmitt Admission Data Admit Date/Time: 10/31/20 08:49 Attending Provider: Usman Schmitt Admit Provider: Smitha Tejada Primary Care Provider: Rafiq Boucher III Other Providers: Micky Leong ; Jhonny Najera Resident Activity Tracking Resident Involvement: Resident Care Provided Care Provided: Adult Hospital Medicine
[2020-10-31] MEDS: SUCRALFATE 1 GM/10 ML UDC PO SCH ×3 (11:32→16:49)
[2020-10-31] MEDS: FLUTICASONE PROPIONATE NA SPR 16 GM BTL SCH (11:32)
[2020-10-31] MEDS: lisinopril 20 MG TAB PO SCH (11:33)
[2020-10-31] MEDS: CITALOPRAM 20 MG TAB PO SCH (11:34)
[2020-10-31 14:23] VITALS: BP 126/75; PULSE 83; TEMP 99; O2SAT 96
--- NOTE | 2020-10-31 18:43 | Billing Data ---
Date of Service October 31, 2020 Coding Level of Care Code D/C Day Management <30 mins
[2020-10-31] MEDS ORDERED: PANTOprazole 40 MG TAB PO SCH (21:00)
[2020-11-01 12:56] LABS: Buprenorphine, Ur Quant 31 ng/mL (<5); Confirmatory Facility DNR
[2020-11-02 18:22] LABS: HIV 1 RNA PCR Copies/ML <20 Copies/mL; HIV-1 RNA Log Copies/mL <1.30 Log cps/mL
== END 2020-10-31 17:38 | disposition home or self-care (01) ==
LOC: ED 07:15 → 3N 07:15 → SUATTDRO 11:38 → 3N 13:41

== ENCOUNTER 2021-01-02 03:10 | Observation (INO) ==
[2021-01-02] MEDS ORDERED: SODIUM CHLORIDE 0.9% 1000ML 1,000 ML IV ONE ×2 (03:29→05:16)
[2021-01-02] MEDS ORDERED: diphenhydrAMINE 50 MG/ML VIAL IV STA (03:29)
[2021-01-02] MEDS ORDERED: fentaNYL citrate 100 MCG/2 ML VIAL IV STA (03:29)
[2021-01-02] MEDS ORDERED: PANTOprazole 80 MG in DEXTROSE 5% 100 ML IV STA (03:29)
[2021-01-02] MEDS ORDERED: PROCHLORPERAZINE 2 ML IV ONE (03:29)
--- NOTE | 2021-01-02 03:35 | Emergency Department Note ---
Impression & Plan Intractable nausea and vomiting, Intractable epigastric abdominal pain ED Provider Note Name: ERENDIRA OTT Age: 55 Sex: M Arrives Via: Walk-In Informant: Patient ED Provider: Rangel Posey MD Chief Complaint: Vomiting Impression: Intractable Nausea and Vomiting Intractable Epigastric Abdominal Pain Medical Decision Makin yr old male with history of esophageal cancer 15 yrs ago sp surg/chemo/radiation who arrives with severe nausea, vomiting and epigastric pain similar to previous episodes of esophagitis. Did vomiting on arrival with flecks of blood though no clots noted. Abdominal exam is benign. Labs unremarkable. Given IV fluids along with many rounds of anti-emetics and pain meds with only minimal improvement though no further vomiting. Unable to tolerate po secondary to symptoms. Given similarity to previous episodes, most recently just 2 months ago, I do not see clear indication for emergent imaging at this time. Due to persistent of symptoms hospitalist was consulted for further management. Prior Medical Record and Triage/Nursing Notes reviewed by Me Additional history obtained from chart Differentials:Esophagitis, GERD/PUD, SBO/LBO, ACS, Dissection, GB disease, diverticulitis, food borne illness as well as other pathologies. Vital Signs: reviewed and remarkable for htn Interventions: saline lock, fentanyl 50mcg IV, dilaudid 1mg IV x 2, zofran 4mg iv x 3, compazine 10mg IV, benadryl 50mg IV, reglan 5mg IV Labs:Reviewed and remarkable for no significant abnormalities Imaging:X ray results are stated below per my interpretation: Chest: 1 view: No infiltrate, no effusion, normal cardiac border. EKG:Per My Interpretation: Indication Chest Pain: NSR 87 bpm, qtc 421. No Ectopy. No Ischemia. Compared to EKG 10/29/20, no significant changes. Cardiac/Tele Monitoring: Cardiac Monitoring: An Order was placed for continuous cardiac monitoring. The monitor shows a rate of 80 with a normal sinus rhythm. Consults:Dr Kyle HOU Hospitalist Plan: Disposition:Hospitalization. Condition: Good History of Present Illness:55 yr old male with complex PMH including esophageal cancer s/p surg/chemo/radiation in and several episodes of esophagitis since arrives for evaluation of worsening epigastric pain. He notes increasing epigastric pain over the last 48 hours. Radiates up central chest. Sharp and stabbing in nature. Comes in waves. Associated with nausea and vomiting. This evening blood noted in emesis. Now feeling lightheaded and near syncope. Denies back pain, shob, syncope, headache, lower abdominal pain, diarrhea, leg swelling, rashes, fevers, nor other symptoms. Phenergan suppository without improvement. Nothing makes better, movement makes worse. This is similar to previous esophagitis episodes. Most recent hospitalization 10/2020. He notes recent diagnosis of prostate CA though has not started any treatment for this. ROS: See above HPI for pertinent positives & negatives. A total of 10 systems reviewed and were otherwise negative. Past Medical History:See Below Past Surgical History:See Below Family History:See Below Social History:See Below Home Medications:See Below Allergies:NKDA Vitals:Blood Pressure: 167/104, Pulse 91, RR 20, T 36.8C, O2 99% on RA Physical Exam: GENERAL: Patient is very uncomfortable appearing and in moderate distress. Dehydrated appearing EYES: No scleral icterus, unremarkable pupils. ENT: Mucous membranes dry, no nasal congestion. NECK: No masses appreciated, nomeningismus, trachea is midline. RESPIRATORY: No dyspnea. Clear to auscultation and equal bilaterally. No wheeze, no rhonchi. CARDIOVASCULAR: Regular rate and rhythm.No murmurs, rubs, gallops appreciated. GASTROINTESTINAL: TTP epigastrium, otherwise abdomen soft, non-tender, no peritonitis.Bowel sounds positive.No masses appreciated. BACK: No midline tenderness, no CVA tenderness EXTREMITIES: Normal motion all extremities, no cyanosis, no edema. NEUROLOGIC: Alert and oriented, no acute motor or sensory deficits, no focal weakness, cranial nerves grossly intact. SKIN: No rash, no jaundice, no diaphoresis. PSYCH: Appropriate GCS: 15 ED Course: Times/Reassessments: Many throughout night only modestly improved and not comfortable for discharge Rangel Posey MD Past Med/Surg History Medical History Abdominal pain Abnormal weight loss Murry esophagus Murry's esophagus with esophagitis Candidal esophagitis Chronically on opiate therapy Constipation Depression Epigastric abdominal pain Esophageal cancer 2007 s/p chemo and radiation Esophagitis determined by endoscopy Fissure, anal Fracture of multiple thoracic vertebrae 25 years ago Gastritis Gastro-esophageal reflux disease with esophagitis Hepatitis C [id number] History of tobacco abuse Hypertension Impaired fasting glucose Iron deficiency anemia Kidney stones Lumbago Myofascial pain Restless leg RLQ abdominal pain Rotator cuff tear arthropathy of both shoulders 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 Vitamin D deficiency Withdrawal from opioids due to [place], using Suboxone to taper off Surgical History History of anesthesia reaction pt states he woke up during 2 EGD procedures and during shoulder sx History of colonoscopy History of cystoscopy History of esophagectomy 2007 History of esophagogastroduodenoscopy (EGD) recent 10/31/2020 History of repair of rotator cuff right and left shoulder History of right knee surgery meniscectomy Hx laparoscopic cholecystectomy Status post surgery neck surgery with hardware Family History Father Hypertension Myocardial infarction Coronary heart disease Mother Cancer Skin and Lung Brother Hypertension Other No family history of adverse response to anesthesia Denies family history of Ovarian cancer Prostate cancer Breast cancer Colorectal cancer Social History Smoking Status: Former smoker Tobacco Type: Cigarettes Years Smoked: 10; Second Hand Exposure: Yes (MOTHER SMOKED); Hx Alcohol Use: No Hx Substance Use: No Preferred Language: Bur[place]ian Communication Ability: Effective Visual Impairment: No Limitations Hearing Ability: Normal Tax Collector Required: No Beliefs That Will Affect Care: None marital status: Current Living Situation: Spouse current occupational status: employed 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 Feels Safe at Home: Yes caffeine: Yes Dental Care, Regularly: Yes Physical Activity Frequency: Daily Seatbelt Use: always Sunscreen Use: No Assistive Devices: None Allergies Allergies Allergy/AdvReac Type Severity Reaction Status Date / Time No Known Allergies Allergy Verified 01/02/21 03:57 Home Meds Home Medications Medication Instructions Recorded Confirmed buprenorphine-naloxone 0.5 tab SUBLINGUAL BID 12/06/20 01/02/21 ferrous sulfate 325 mg (65 mg 325 mg PO QAM 12/19/20 01/02/21 iron) tablet fluticasone propionate 50 1 spray INTRANASAL BID 12/19/20 01/02/21 mcg/actuation nasal spray,suspension clonidine HCl 0.1 mg PO BID PRN 01/02/21 01/02/21 dexlansoprazole [Dexilant] 60 mg PO DAILY 01/02/21 01/02/21 ondansetron HCl 4 mg PO QID PRN 01/02/21 01/02/21 Previous Rx's Medication Instructions Recorded citalopram 20 mg tablet 20 mg PO QAM #90 tab 08/22/20 gabapentin 300 mg capsule 300 mg PO TID PRN #90 cap 08/24/20 lisinopril 20 mg tablet 20 mg PO QAM #30 tab 09/25/20 famotidine [Pepcid] 20 mg PO BID #60 tab 10/31/20 pantoprazole 40 mg tablet,delayed 40 mg PO BID #180 tab 12/15/20 release Results & Data (ED) Vital Signs Vital Signs - 24 hr 01/02/21 03:14 01/02/21 03:58 01/02/21 04:15 Temperature 36.8 C Temperature Source Temporal Artery Scan Pulse Rate 91 H 85 Pulse Rate [Right Finger] 84 Pulse Rhythm [Right Finger] Pulse Strength [Right Finger] Respiratory Rate 20 16 16 Respiratory Effort / Characteristics Non-Labored Spontaneous Non-Labored Spontaneous Respiratory Depth Normal Normal Respiratory Pattern Regular Blood Pressure 167/104 H 174/101 H Blood Pressure [Left Arm] 172/102 H Blood Pressure Mean 125 125 Blood Pressure Mean [Left Arm] 125 Blood Pressure Position Sitting Blood Pressure Position [Left Arm] Lying Pulse Oximetry 99 98 97 Oxygen Delivery Method Room Air Room Air Room Air Sepsis Recent Fever Within 48 Hours No Sepsis New/Unexplained Change in Mental Status No Sepsis Action Taken by Nursing No Action Required 01/02/21 04:30 01/02/21 05:00 01/02/21 05:30 Temperature Temperature Source Pulse Rate 87 83 82 Pulse Rate [Right Finger] Pulse Rhythm [Right Finger] Pulse Strength [Right Finger] Respiratory Rate 19 14 20 Respiratory Effort / Characteristics Respiratory Depth Respiratory Pattern Blood Pressure 179/95 H 168/98 H 170/101 H Blood Pressure [Left Arm] Blood Pressure Mean 123 121 124 Blood Pressure Mean [Left Arm] Blood Pressure Position Blood Pressure Position [Left Arm] Pulse Oximetry 97 96 96 Oxygen Delivery Method Room Air Room Air Room Air Sepsis Recent Fever Within 48 Hours Sepsis New/Unexplained Change in Mental Status Sepsis Action Taken by Nursing 01/02/21 06:00 01/02/21 06:30 01/02/21 07:35 Temperature Temperature Source Pulse Rate 83 83 Pulse Rate [Right Finger] 79 Pulse Rhythm [Right Finger] Regular Pulse Strength [Right Finger] Normal Respiratory Rate 16 16 18 Respiratory Effort / Characteristics Non-Labored Spontaneous Respiratory Depth Normal Respiratory Pattern Regular Blood Pressure 176/100 H 165/99 H Blood Pressure [Left Arm] 167/99 H Blood Pressure Mean 125 121 Blood Pressure Mean [Left Arm] 121 Blood Pressure Position Blood Pressure Position [Left Arm] Lying Pulse Oximetry 100 95 97 Oxygen Delivery Method Room Air Room Air Sepsis Recent Fever Within 48 Hours Sepsis New/Unexplained Change in Mental Status Sepsis Action Taken by Nursing 01/02/21 08:42 Temperature Temperature Source Pulse Rate Pulse Rate [Right Finger] 75 Pulse Rhythm [Right Finger] Regular Pulse Strength [Right Finger] Normal Respiratory Rate 19 Respiratory Effort / Characteristics Non-Labored Spontaneous Respiratory Depth Normal Respiratory Pattern Regular Blood Pressure Blood Pressure [Left Arm] 175/101 H Blood Pressure Mean Blood Pressure Mean [Left Arm] 125 Blood Pressure Position Blood Pressure Position [Left Arm] Lying Pulse Oximetry 97 Oxygen Delivery Method Room Air Sepsis Recent Fever Within 48 Hours Sepsis New/Unexplained Change in Mental Status Sepsis Action Taken by Nursing Laboratory Data Result diagrams: 01/02/21 18:10 01/02/21 12:44 Lab Results 01/02/21 01/02/21 01/02/21 Range/Units 03:57 03:57 06:50 WBC 6.23 (4.8-10.8) K/uL RBC 4.58 L (4.7-6.1) M/uL Hgb 13.7 L (14.0-18.0) g/dL Hct 39.7 L (42-52) % MCV 86.7 (80-100) fL MCH 29.9 (25-34) pg MCHC 34.5 (32-36) g/dL RDW Std Deviation 42.4 (36.4-46.3) fL RDW Coeff of Dorothy 13.3 (11.5-14.5) % Plt Count 212 (130-400) K/uL MPV 10.6 H (7.4-10.4) fL Immature Gran % (Auto) 0.2 % Neut % (Auto) 70.0 % Lymph % (Auto) 19.7 % Burke % (Auto) 9.5 % Eos % (Auto) 0.3 % Baso % (Auto) 0.3 % Neut # (Auto) 4.36 (1.4-6.5) K/uL Lymph # (Auto) 1.23 (1.2-3.4) K/uL Burke # (Auto) 0.59 (0.11-0.59) K/uL Eos # (Auto) 0.02 (0-0.5) K/uL Baso # (Auto) 0.02 (0-0.2) K/uL Immature Gran # (Auto) 0.01 (0.00-0.02) K/uL Sodium 136 (136-145) mmol/L Potassium 3.7 (3.5-5.1) mmol/L Chloride 105 (98-107) mmol/L Carbon Dioxide 25 (21-32) mmol/L Anion Gap 7.0 (3-11) BUN 14 (7-18) mg/dl Creatinine 0.92 (0.6-1.4) mg/dl Est Cr Clr Drug Dosing 82.3 ml/min Est GFR ( Amer) 106.6 Est GFR (Non-Af Amer) 92.0 BUN/Creatinine Ratio 15.5 (10-20) Glucose 118 H (70-99) mg/dl Calcium 8.8 (8.5-10.1) mg/dl Magnesium 1.9 (1.8-2.4) mg/dl Total Bilirubin 0.8 (0.2-1) mg/dl Direct Bilirubin < 0.1 (0-0.2) mg/dl AST 15 (15-37) U/L ALT 20 (12-78) U/L Alkaline Phosphatase 93 (45-117) U/L Troponin I < 0.015 (0-0.045) ng/ml Total Protein 6.8 (6.4-8.2) gm/dl Albumin 3.5 (3.4-5.0) gm/dl Lipase 217 (73-393) U/L COVID-19 Eval Order Covid19 [facility] SARS-CoV-2, RNA, NAAT (NEGATIVE) 01/02/21 Range/Units 06:50 WBC (4.8-10.8) K/uL RBC (4.7-6.1) M/uL Hgb (14.0-18.0) g/dL Hct (42-52) % MCV (80-100) fL MCH (25-34) pg MCHC (32-36) g/dL RDW Std Deviation (36.4-46.3) fL RDW Coeff of Dorothy (11.5-14.5) % Plt Count (130-400) K/uL MPV (7.4-10.4) fL Immature Gran % (Auto) % Neut % (Auto) % Lymph % (Auto) % Burke % (Auto) % Eos % (Auto) % Baso % (Auto) % Neut # (Auto) (1.4-6.5) K/uL Lymph # (Auto) (1.2-3.4) K/uL Burke # (Auto) (0.11-0.59) K/uL Eos # (Auto) (0-0.5) K/uL Baso # (Auto) (0-0.2) K/uL Immature Gran # (Auto) (0.00-0.02) K/uL Sodium (136-145) mmol/L Potassium (3.5-5.1) mmol/L Chloride (98-107) mmol/L Carbon Dioxide (21-32) mmol/L Anion Gap (3-11) BUN (7-18) mg/dl Creatinine (0.6-1.4) mg/dl Est Cr Clr Drug Dosing ml/min Est GFR ( Amer) Est GFR (Non-Af Amer) BUN/Creatinine Ratio (10-20) Glucose (70-99) mg/dl Calcium (8.5-10.1) mg/dl Magnesium (1.8-2.4) mg/dl Total Bilirubin (0.2-1) mg/dl Direct Bilirubin (0-0.2) mg/dl AST (15-37) U/L ALT (12-78) U/L Alkaline Phosphatase (45-117) U/L Troponin I (0-0.045) ng/ml Total Protein (6.4-8.2) gm/dl Albumin (3.4-5.0) gm/dl Lipase (73-393) U/L COVID-19 Eval Order SARS-CoV-2, RNA, NAAT NEGATIVE (NEGATIVE) Administered Medications Buprenorphine/Naloxone (Buprenorphine/Naloxone 2/0.5mg 1 Tab) 2 tab SL BID YANETH Stop: 02/01/21 20:59 Last Admin: 01/02/21 21:47 Dose: 2 tab Documented by: [id number] Fluticasone Propionate (Fluticasone Propionate Na Spr 16 Gm Btl) 1 sprays SOLA BID YANETH Stop: 02/01/21 12:37 Last Admin: 01/02/21 21:47 Dose: 1 sprays Documented by: [id number] Admin: 01/02/21 14:34 Dose: 1 sprays Documented by: [id number] Famotidine 20 mg/ Syringe 5 mls @ 2.5 mls/min IV Q12H YANETH Stop: 02/01/21 13:29 Last Admin: 01/02/21 14:33 Dose: 2.5 mls/min Documented by: [id number] Pantoprazole Sodium 40 mg/ (Syringe) 10 mls @ 5 mls/min IV BID [facility] Stop: 02/01/21 20:59 Last Admin: 01/02/21 21:53 Dose: 5 mls/min Documented by: [id number] Lisinopril (Lisinopril 20 Mg Tab) 20 mg PO QAM [facility] Stop: 02/01/21 12:37 Last Admin: 01/02/21 15:19 Dose: 20 mg Documented by: [id number] Ondansetron HCl (Ondansetron 4 Mg Od Tab) 4 mg PO QID PRN PRN Reason: Nausea Stop: 02/01/21 12:37 Last Admin: 01/02/21 21:53 Dose: 4 mg Documented by: [id number] Sucralfate (Sucralfate 1 Gm/10 Ml Udc) 1 gm PO ACHS [facility] Stop: 02/01/21 16:29 Last Admin: 01/02/21 21:47 Dose: 1 gm Documented by: [id number] Admin: 01/02/21 17:27 Dose: 1 gm Documented by: [id number] Discontinued Medications Diphenhydramine HCl (Diphenhydramine 50 Mg/Ml Vial) 50 mg IV NOW STA Stop: 01/02/21 03:30 Last Admin: 01/02/21 03:43 Dose: 50 mg Documented by: [id number] Fentanyl Citrate (Fentanyl Citrate 100 Mcg/2 Ml Vial) 50 mcg IV NOW STA Stop: 01/02/21 03:30 Last Admin: 01/02/21 03:47 Dose: 50 mcg Documented by: [id number] Hydromorphone HCl (Hydromorphone Inj 1 Mg/Ml Syringe) 1 mg IV NOW STA Stop: 01/02/21 04:25 Last Admin: 01/02/21 04:36 Dose: 1 mg Documented by: [id number] Hydromorphone HCl (Hydromorphone Inj 1 Mg/Ml Syringe) 1 mg IV NOW STA Stop: 01/02/21 06:14 Last Admin: 01/02/21 06:20 Dose: 1 mg Documented by: [id number] Prochlorperazine (Compazine) 2 mls @ 1 mls/min IV ONE ONE Stop: 01/02/21 03:30 Last Admin: 01/02/21 03:44 Dose: 1 mls/min Documented by: [id number] Sodium Chloride (Nss 1000ml) 1,000 mls @ 999 mls/hr IV .Q1H1M ONE Stop: 01/02/21 04:29 Last Infusion: 01/02/21 04:50 Dose: 0 mls/hr Documented by: [id number] Admin: 01/02/21 03:48 Dose: 999 mls/hr Documented by: [id number] Pantoprazole Sodium 80 mg/ (Dextrose) 100 mls @ 400 mls/hr IV ONE STA Stop: 01/02/21 03:43 Last Infusion: 01/02/21 04:37 Dose: 0 mls/hr Documented by: [id number] Admin: 01/02/21 04:11 Dose: 400 mls/hr Documented by: [id number] Sodium Chloride (Nss 1000ml) 1,000 mls @ 999 mls/hr IV .Q1H1M ONE Stop: 01/02/21 06:16 Last Infusion: 01/02/21 06:24 Dose: 0 mls/hr Documented by: [id number] Admin: 01/02/21 05:23 Dose: 999 mls/hr Documented by: [id number] Metoclopramide HCl (Metoclopramide Hcl Inj 5 Mg/Ml 2 Ml Vial) 5 mg IV ONE ONE Stop: 01/02/21 05:17 Last Admin: 01/02/21 05:23 Dose: 5 mg Documented by: [id number] Ondansetron HCl (Ondansetron Inj 2 Mg/Ml 2 Ml Vial) 4 mg IV NOW STA Stop: 01/02/21 04:25 Last Admin: 01/02/21 04:36 Dose: 4 mg Documented by: [id number] Ondansetron HCl (Ondansetron Inj 2 Mg/Ml 2 Ml Vial) 4 mg IV NOW STA Stop: 01/02/21 05:17 Last Admin: 01/02/21 05:23 Dose: 4 mg Documented by: [id number] Ondansetron HCl (Ondansetron Inj 2 Mg/Ml 2 Ml Vial) 4 mg IV NOW STA Stop: 01/02/21 06:14 Last Admin: 01/02/21 06:20 Dose: 4 mg Documented by: [id number] Discharge Plan Visit Data Chief Complaint: Vomiting Stated Complaint: UNABLE TO STOP VOMITING ED Provider: Rangel Posey Discharge Problem: Intractable nausea and vomiting, Intractable epigastric abdominal pain Patient Disposition: Admitted As Inpatient Discharge Instructions Interventions: ED Discharge Assessment Last Done: 01/02/21 13:50
[2021-01-02 04:09] LABS: Basophils # (auto) 0.02 K/uL (0-0.2); Basophils % (auto) 0.3 %; Eosinophils # (auto) 0.02 K/uL (0-0.5); Eosinophils % (auto) 0.3 %; Hematocrit (blood only) 39.7 % (42-52); Hemoglobin 13.7 g/dL (14.0-18.0); Immature Granulocytes # (auto) 0.01 K/uL (0.00-0.02); Immature Granulocytes % (auto) 0.2 %; Lymphocytes # (auto) 1.23 K/uL (1.2-3.4); Lymphocytes % (auto) 19.7 %; Mean Corpuscular Hemoglobin 29.9 pg (25-34); Mean Corpuscular Hgb Conc 34.5 g/dL (32-36); Mean Corpuscular Volume 86.7 fL (80-100); Mean Platelet Volume 10.6 fL (7.4-10.4); Monocytes # (auto) 0.59 K/uL (0.11-0.59); Monocytes % (auto) 9.5 %; Neutrophils # (auto) 4.36 K/uL (1.4-6.5); Platelet Count 212 K/uL (130-400); RDW Coefficient of Variation 13.3 % (11.5-14.5); RDW Standard Deviation 42.4 fL (36.4-46.3); Red Blood Count 4.58 M/uL (4.7-6.1); White Blood Count 6.23 K/uL (4.8-10.8)
[2021-01-02] MEDS ORDERED: ONDANSETRON INJ 2 MG/ML 2 ML VIAL IV STA ×3 (04:24→06:13)
[2021-01-02] MEDS ORDERED: HYDROmorphone INJ 1 MG/ML SYRINGE IV STA ×2 (04:24→06:13)
[2021-01-02 04:25] LABS: Alanine Aminotransferase 20 U/L (12-78); Albumin Level 3.5 gm/dl (3.4-5.0); Aspartate Aminotransferase 15 U/L (15-37); BUN Creatinine Ratio 15.5 (10-20); Bilirubin Direct < 0.1 mg/dl (0-0.2); Blood Urea Nitrogen 14 mg/dl (7-18); Calcium 8.8 mg/dl (8.5-10.1); Carbon Dioxide 25 mmol/L (21-32); Chloride 105 mmol/L (98-107); Creatinine Clr Calc Pharmacy 82.3 ml/min; Est GFR (African American) 106.6; Glucose 118 mg/dl (70-99); Lipase 217 U/L (73-393); Magnesium 1.9 mg/dl (1.8-2.4); Potassium 3.7 mmol/L (3.5-5.1); Sodium 136 mmol/L (136-145)
[2021-01-02 04:30] LABS: Alkaline Phosphatase 93 U/L (45-117); Bilirubin,Total 0.8 mg/dl (0.2-1); Total Protein 6.8 gm/dl (6.4-8.2); Troponin I < 0.015 ng/ml (0-0.045)
[2021-01-02] MEDS ORDERED: METOCLOPRAMIDE HCL INJ 5 MG/ML 2 ML VIAL IV ONE (05:16)
--- NOTE | 2021-01-02 08:02 | XRay Report ---
XR chest 1V portable HISTORY: Atypical Chest pain/vomiting COMPARISON: Chest 10/29/2020. FINDINGS: No pneumothorax. No pleural effusions. The heart is normal in size. Left upper quadrant chencoh gical clips are again noted. Cervical spinal fusion hardware remains intact. Suspect mild emphysema. No new focal lung consolidations to suggest pneumonia. No evidence for pulmonary edema. Old, healed r ight-sided rib fracture IMPRESSION: No significant change compared to the prior study. No acute process. ACT 112: Negative or not required by law. Electronically signed by: Shree Murguia M.D. 01/02/2021 8:00 AM
--- NOTE | 2021-01-02 10:06 | History & Physical Report ---
Date of Service January 02, 2021 Assessment & Plan (1) Intractable nausea and vomiting: Continue antiemetics Consult gastroenterology as this is a recurrent problem Faint hematemesis Failed colonoscopy secondary to poor bowel prep in November Admit under observation on [facility] floor (2) Intractable epigastric abdominal pain: Pantoprazole 40 mg IV twice daily Famotidine 20 mg IV twice daily Carafate p.o. 4 times daily Gastroenterology consult (3) Murry's esophagus with esophagitis: No evidence of candidiasis on physical examination of mouth and posterior oropharynx Pantoprazole 40 mg IV twice daily Famotidine 20 mg IV twice daily Carafate p.o. 4 times daily Gastroenterology consult (4) Hematemesis: Scant blood in vomit as seen by attending physician H&H q. 6 hours x 4 Hemoglobin currently stable No visible blood in emesis in patient's room at this time Patient denies coffee-ground appearance Gastroenterology consult (5) Prostate cancer: Being followed by Dr. Charlie Geiger in urology Patient states that he is elected surgical intervention No prior treatment Patient deferring on XRT Further management outpatient with Dr. Geiger (6) History of tobacco abuse: Patient quit tobacco products 8 years ago (7) Withdrawal from opioids: Continue Suboxone (8) DVT prophylaxis: No chemical prophylaxis at this time secondary to scant hematemesis and possibility of gastroenterology procedures JACQUELYN hose knee-high bilaterally SCDs knee-high bilaterally History of Present Illness Primary Care Provider: Rafiq Boucher MD Attending: Dr. Wright This is a 55-year-old male known to the gastroenterology service. He has a past medical history of esophageal cancer, Murry's esophagitis, chronic epigastric abdominal pain, chronic nausea and vomiting, newly diagnosed prostate cancer, history of tobacco abuse. The patient presents with 2 days of increasing abdominal pain with intractable nausea and vomiting. He states that he had some hematemesis with flecks of blood. There is no clots and it did not appear to be coffee-ground in nature or bright red blood. Patient has received multiple doses of antiemetic and continues with nausea and vomiting in the emergency department. The patient is afebrile and has no hypoxia. Heart rate is stable at 67 bpm. Patient's blood pressure is slightly elevated. The patient denies any recent illness. He states that he does not drink alcohol. He quit smoking 7 or 8 years ago. 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 Allergies Allergy/AdvReac Type Severity Reaction Status Date / Time No Known Allergies Allergy Verified 01/02/21 03:57 Home Medications Medication Instructions Recorded Confirmed Type citalopram 20 mg tablet 20 mg PO QAM #90 tab 08/22/20 01/02/21 Rx gabapentin 300 mg capsule 300 mg PO TID PRN #90 cap 08/24/20 01/02/21 Rx lisinopril 20 mg tablet 20 mg PO QAM #30 tab 09/25/20 01/02/21 Rx famotidine [Pepcid] 20 mg PO BID #60 tab 10/31/20 01/02/21 Rx buprenorphine-naloxone 0.5 tab SUBLINGUAL BID 12/06/20 01/02/21 History pantoprazole 40 mg tablet,delayed 40 mg PO BID #180 tab 12/15/20 01/02/21 Rx release ferrous sulfate 325 mg (65 mg 325 mg PO QAM 12/19/20 01/02/21 History iron) tablet fluticasone propionate 50 1 spray INTRANASAL BID 12/19/20 01/02/21 History mcg/actuation nasal spray,suspension clonidine HCl 0.1 mg PO BID PRN 01/02/21 01/02/21 History dexlansoprazole [Dexilant] 60 mg PO DAILY 01/02/21 01/02/21 History ondansetron HCl 4 mg PO QID PRN 01/02/21 01/02/21 History Past Med/Surg History Medical History Abdominal pain Abnormal weight loss Murry esophagus Murry's esophagus with esophagitis Candidal esophagitis Chronically on opiate therapy Constipation Depression Epigastric abdominal pain Esophageal cancer 2007 s/p chemo and radiation Esophagitis determined by endoscopy Fissure, anal Fracture of multiple thoracic vertebrae 25 years ago Gastritis Gastro-esophageal reflux disease with esophagitis Hepatitis C [id number] History of tobacco abuse Hypertension Impaired fasting glucose Iron deficiency anemia Kidney stones Lumbago Myofascial pain Restless leg RLQ abdominal pain Rotator cuff tear arthropathy of both shoulders 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 Vitamin D deficiency Withdrawal from opioids due to [place], using Suboxone to taper off Surgical History History of anesthesia reaction pt states he woke up during 2 EGD procedures and during shoulder sx History of colonoscopy History of cystoscopy History of esophagectomy 2007 History of esophagogastroduodenoscopy (EGD) recent 10/31/2020 History of repair of rotator cuff right and left shoulder History of right knee surgery meniscectomy Hx laparoscopic cholecystectomy Status post surgery neck surgery with hardware Family History Father Hypertension Myocardial infarction Coronary heart disease Mother Cancer Skin and Lung Brother Hypertension Other No family history of adverse response to anesthesia Denies family history of Ovarian cancer Prostate cancer Breast cancer Colorectal cancer Social History Smoking Status: Former smoker Tobacco Type: Cigarettes Years Smoked: 10; Second Hand Exposure: Yes (MOTHER SMOKED); Hx Alcohol Use: No Hx Substance Use: No Preferred Language: Romanian Communication Ability: Effective Visual Impairment: No Limitations Hearing Ability: Normal Healthcare Account Manager Required: No Beliefs That Will Affect Care: None marital status: Current Living Situation: Spouse current occupational status: employed 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 Other Information That Helps Us Care for You: No Feels Safe at Home: Yes Safety Concerns: Feels Safe At This Time caffeine: Yes Dental Care, Regularly: Yes Physical Activity Frequency: Daily Seatbelt Use: always Sunscreen Use: No Assistive Devices: None Review of Systems Review of Systems: All systems reviewed & are unremarkable except as noted in HPI & below Physical Exam Physical Exam: GENERAL : No acute distress EYES: No icterus, gaze conjugate NOSE: No evidence of epistaxis MOUTH: No lesions or candidiasis NECK: Supple LUNGS: CTA B/L, no wheezes, rales or rhonchi HEART: Regular, rate controlled ABDOMEN: Soft, ND, BS Present with no high-pitched tinkling. Minimal tenderness with deep palpation. No rebound tenderness. EXTREMITIES: No LE edema, pedal pulses intact NEURO: A&OX3 Results & Data Results & Data ([facility]) Vital Signs (Past 12 Hours) Vital Signs Temp Pulse Pulse Resp BP BP Pulse Ox 01/02/21 08:42 75 19 175/101 H 97 01/02/21 07:35 79 18 167/99 H 97 01/02/21 06:30 83 16 165/99 H 95 01/02/21 06:00 83 16 176/100 H 100 01/02/21 05:30 82 20 170/101 H 96 01/02/21 05:00 83 14 168/98 H 96 01/02/21 04:30 87 19 179/95 H 97 01/02/21 04:15 85 16 174/101 H 97 01/02/21 03:58 84 16 172/102 H 98 01/02/21 03:14 36.8 C 91 H 20 167/104 H 99 Laboratory Results 01/02/21 12:44 01/02/21 12:44 01/02/21 03:57 Troponin I < 0.015 Diagnostic Findings XR chest 1V portable HISTORY: Atypical Chest pain/vomiting COMPARISON: Chest 10/29/2020. FINDINGS: No pneumothorax. No pleural effusions. The heart is normal in size. Left upper quadrant surgical clips are again noted. Cervical spinal fusion hardware remains intact. Suspect mild emphysema. No new focal lung consolidations to suggest pneumonia. No evidence for pulmonary edema. Old, healed right-sided rib fracture IMPRESSION: No significant change compared to the prior study. No acute process. ACT 112: Negative or not required by law. Electronically signed by: Shree Murguia M.D. 01/02/2021 8:00 AM Code Status & VTE Plan Code Status Full resuscitation: Level I VTE Prophylaxis Plan VTE Prophylaxis will be ordered: Yes PG Care Time/CCT Total # of Minutes Spent Total Time Spent with Patient: Total time spent is greater than 50% in coordination of care (as documented) at patient's floor/unit and/or counseling patient: 55 minutes Coding Level of Care Code 67959 Initial Inpt Care Lvl 3 Diagnoses Intractable nausea and vomiting R11.2 Intractable epigastric abdominal pain R10.13 Murry's esophagus with esophagitis K22.70; K20.90 Hematemesis K92.0 Prostate cancer C61 History of tobacco abuse Z87.891 Withdrawal from opioids F11.23 DVT prophylaxis Z29.9 Time Spent (min) 60
--- NOTE | 2021-01-02 10:59 | Electrocardiogram Report ---
Test Reason : Blood Pressure : / mmHG Vent. Rate : 087 BPM Atrial Rate : 087 BPM P-R Int : 134 ms QRS Dur : 084 ms QT Int : 350 ms P-R-T Axes : 069 018 043 degrees QTc Int : 421 ms Poor data quality, interpretation may be adversely affected Normal sinus rhythm Cannot rule out Septal myocardial infarction Abnormal ECG When compared with ECG of 29-OCT-2020 07:44, No significant change Confirmed by Dano Sosa ([id number]) on 01/02/2021 10:59:42 AM Referred By: REFERRED SELF Confirmed By:Dano Sosa
[2021-01-02] MEDS ORDERED: cloNIDine HCL 0.1 MG TAB PO PRN (12:38)
[2021-01-02] MEDS ORDERED: GABAPENTIN 300 MG CAP PO PRN (12:38)
[2021-01-02] MEDS ORDERED: ONDANSETRON 4 MG OD TAB PO PRN (12:38)
[2021-01-02 12:56] LABS: Hematocrit (blood only) 37.6 % (42-52)
[2021-01-02 13:13] LABS: BUN Creatinine Ratio 14.7 (10-20); Calcium 8.7 mg/dl (8.5-10.1); Creatinine Clr Calc Pharmacy 90.2 ml/min; Est GFR (African American) 112.7; Est GFR (Non-African American) 97.2
[2021-01-02 13:24] LABS: Appearance Urine Clear (Clear); Bilirubin Urine Negative (Negative); Blood Urine Negative (Negative); Color Urine Yellow; Glucose Urine UA Negative (Negative); Ketones Urine Trace (Negative); Leukocyte Esterase Urine Negative (Negative); Nitrite Urine Negative (Negative); Protein Urine Negative (Negative); Specific Gravity Urine 1.021 (1.000-1.030); Urobilinogen Urine Negative (Negative)
[2021-01-02 14:00] LABS: Amphetamines+Metham, Urine Neg (Neg); Barbiturates, Urine Neg (Neg); Benzodiazepine, Urine Neg (Neg); Cocaine, Urine Neg (Neg); MDMA (Ecstacy), Urine Neg (Neg); Methadone, Urine Neg (Neg); Opiate, Urine Pos (Neg); Phencyclidine, Urine Neg (Neg)
--- NOTE | 2021-01-02 14:17 | History & Physical Report ---
Date of Service January 02, 2021 Assessment & Plan (1) Intractable nausea and vomiting: (2) Murry's esophagus with esophagitis: suspect he has some component of gastroparesis in addition to his Barretts esophagus and esophagitis. Recs: -low fiber, low fat diet, small meals 4-5 times per day -anti-emetics can use reglan 5 mg TID 30 min prior to meals for 4 weeks for empiric treatment of possible gastroparesis -continue IV protonix BID and famotidine and carafate -will need gastric emptying study as an outpatient Thank you for allowing me to participate in the care of this patient Admission and Anticipated Discharge Date Admission Date: January 02, 2021 History of Present Illness Primary Care Provider: Rafiq Boucher MD 55 yo male with hx Barretts esophagus, chronic n/v, newly diagnosed prostate cancer here with n/v and abd pains. For the last few days has had these symptoms, EGD 10/2020 showed Barretts esophagus with esophagitis and ulcers. Was put on PPI at the time. Was also planned to get an outpt GES for his chronic n/v but this has not been done yet. Regarding his vomiting, he did have some scant hematemesis, likely from persistent wretching. hgb is stable around baseline. VSS. labs reviewed. suspect he has some component of gastroparesis in addition to his Barretts esophagus and esophagitis. Recs: -low fiber, low fat diet, small meals 4-5 times per day -anti-emetics can use reglan 5 mg TID 30 min prior to meals for 4 weeks for empiric treatment of possible gastroparesis -continue IV protonix BID and famotidine and carafate -will need gastric emptying study as an outpatient Thank you for allowing me to participate in the care of this patient Allergies Allergy/AdvReac Type Severity Reaction Status Date / Time No Known Allergies Allergy Verified 01/02/21 03:57 Home Medications Medication Instructions Recorded Confirmed Type citalopram 20 mg tablet 20 mg PO QAM #90 tab 08/22/20 01/02/21 Rx gabapentin 300 mg capsule 300 mg PO TID PRN #90 cap 08/24/20 01/02/21 Rx lisinopril 20 mg tablet 20 mg PO QAM #30 tab 09/25/20 01/02/21 Rx famotidine [Pepcid] 20 mg PO BID #60 tab 10/31/20 01/02/21 Rx buprenorphine-naloxone 0.5 tab SUBLINGUAL BID 12/06/20 01/02/21 History pantoprazole 40 mg tablet,delayed 40 mg PO BID #180 tab 12/15/20 01/02/21 Rx release ferrous sulfate 325 mg (65 mg 325 mg PO QAM 12/19/20 01/02/21 History iron) tablet fluticasone propionate 50 1 spray INTRANASAL BID 12/19/20 01/02/21 History mcg/actuation nasal spray,suspension clonidine HCl 0.1 mg PO BID PRN 01/02/21 01/02/21 History dexlansoprazole [Dexilant] 60 mg PO DAILY 01/02/21 01/02/21 History ondansetron HCl 4 mg PO QID PRN 01/02/21 01/02/21 History Past Med/Surg History Medical History Abdominal pain Abnormal weight loss Murry esophagus Murry's esophagus with esophagitis Candidal esophagitis Chronically on opiate therapy Constipation Depression Epigastric abdominal pain Esophageal cancer 2007 s/p chemo and radiation Esophagitis determined by endoscopy Fissure, anal Fracture of multiple thoracic vertebrae 25 years ago Gastritis Gastro-esophageal reflux disease with esophagitis Hepatitis C [id number] History of tobacco abuse Hypertension Impaired fasting glucose Iron deficiency anemia Kidney stones Lumbago Myofascial pain Restless leg RLQ abdominal pain Rotator cuff tear arthropathy of both shoulders 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 Vitamin D deficiency Withdrawal from opioids due to [place], using Suboxone to taper off Surgical History History of anesthesia reaction pt states he woke up during 2 EGD procedures and during shoulder sx History of colonoscopy History of cystoscopy History of esophagectomy 2007 History of esophagogastroduodenoscopy (EGD) recent 10/31/2020 History of repair of rotator cuff right and left shoulder History of right knee surgery meniscectomy Hx laparoscopic cholecystectomy Status post surgery neck surgery with hardware Family History Father Hypertension Myocardial infarction Coronary heart disease Mother Cancer Skin and Lung Brother Hypertension Other No family history of adverse response to anesthesia Denies family history of Ovarian cancer Prostate cancer Breast cancer Colorectal cancer Social History Smoking Status: Former smoker Tobacco Type: Cigarettes Years Smoked: 10; Second Hand Exposure: Yes (MOTHER SMOKED); Hx Alcohol Use: No Hx Substance Use: No Preferred Language: [place] Communication Ability: Effective Visual Impairment: No Limitations Hearing Ability: Normal Spare Hand Carding Required: No Beliefs That Will Affect Care: None marital status: Current Living Situation: Spouse current occupational status: employed 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 Other Information That Helps Us Care for You: No Feels Safe at Home: Yes Safety Concerns: Feels Safe At This Time caffeine: Yes Dental Care, Regularly: Yes Physical Activity Frequency: Daily Seatbelt Use: always Sunscreen Use: No Assistive Devices: None Review of Systems no fever, no chills and no weight loss as per Subjective / HPI as per Subjective / HPI no dyspnea and no dyspnea on exertion no chest pain and no palpitations as per Subjective / HPI no joint pain and no swelling no rash and no lesions no numbness and no paresthesia no depression and no anxiety no fatigue no easy bleeding and no easy bruising Physical Exam Constitutional: WD/WN, vitals as above Eyes: EOM intact bilaterally Neck: normal visual inspection Respiratory: normal respiratory effort, lungs clear to auscultation Cardiovascular: RRR, no murmur, no edema Gastrointestinal (Abdomen): Inspection/Auscultation: abdomen normal to inspection; abdomen not distended Percussion/Palpation: abdomen soft; abdomen nontender and no hepatosplenomegaly Musculoskeletal: Extremities: no cyanosis Gait: normal gait Skin: no rashes, warm and dry Neurologic: moves all extremities Psychiatric: A+Ox3, euthymic affect Results & Data ([facility]) Vital Signs (Past 12 Hours) Vital Signs Temp Pulse Pulse Resp BP BP Pulse Ox 01/02/21 12:36 37.1 C 67 18 169/92 H 96 01/02/21 11:00 74 14 153/88 H 96 01/02/21 10:00 75 16 159/88 H 95 01/02/21 08:42 75 19 175/101 H 97 01/02/21 07:35 79 18 167/99 H 97 01/02/21 06:30 83 16 165/99 H 95 01/02/21 06:00 83 16 176/100 H 100 01/02/21 05:30 82 20 170/101 H 96 01/02/21 05:00 83 14 168/98 H 96 01/02/21 04:30 87 19 179/95 H 97 01/02/21 04:15 85 16 174/101 H 97 01/02/21 03:58 84 16 172/102 H 98 01/02/21 03:14 36.8 C 91 H 20 167/104 H 99 Code Status & VTE Plan VTE Prophylaxis Plan VTE Prophylaxis will be ordered: Yes Coding Diagnoses Intractable nausea and vomiting R11.2 Murry's esophagus with esophagitis K22.70; K20.90
[2021-01-02] MEDS: FAMOTIDINE 20 MG in SYRINGE 3 ML IV SCH (14:33)
[2021-01-02] MEDS: FLUTICASONE PROPIONATE NA SPR 16 GM BTL NAE SCH ×2 (14:34→21:47)
[2021-01-02] MEDS: lisinopril 20 MG TAB PO SCH (15:19)
[2021-01-02] MEDS: SUCRALFATE 1 GM/10 ML UDC PO SCH ×2 (17:27→21:47)
[2021-01-02 18:19] LABS: Hematocrit (blood only) 38.5 % (42-52); Hemoglobin 13.4 g/dL (14.0-18.0)
[2021-01-02] MEDS: BUPRENORPHINE/NALOXONE 2/0.5MG 1 TAB SL SCH (21:47)
[2021-01-02] MEDS: PANTOprazole 40 MG in SYRINGE 0 ML IV SCH (21:53)
[2021-01-03 01:07] LABS: Hematocrit (blood only) 37.9 % (42-52); Hemoglobin 12.9 g/dL (14.0-18.0)
[2021-01-03] MEDS: FAMOTIDINE 20 MG in SYRINGE 3 ML IV SCH (01:46)
[2021-01-03 07:20] LABS: Hemoglobin 13.5 g/dL (14.0-18.0)
[2021-01-03 07:40] LABS: BUN Creatinine Ratio 16.2 (10-20); Creatinine Clr Calc Pharmacy 90.2 ml/min; Est GFR (African American) 112.7; Est GFR (Non-African American) 97.2; Potassium 4.6 mmol/L (3.5-5.1)
[2021-01-03] MEDS: SUCRALFATE 1 GM/10 ML UDC PO SCH ×2 (08:17→11:35)
[2021-01-03] MEDS: lisinopril 20 MG TAB PO SCH (08:17)
[2021-01-03] MEDS: PANTOprazole 40 MG in SYRINGE 0 ML IV SCH (08:17)
[2021-01-03] MEDS: FLUTICASONE PROPIONATE NA SPR 16 GM BTL NAE SCH (08:18)
[2021-01-03] MEDS: BUPRENORPHINE/NALOXONE 2/0.5MG 1 TAB SL SCH (08:50)
[2021-01-03] MEDS ORDERED: PANTOprazole 40 MG TAB PO SCH (09:00)
[2021-01-03] MEDS ORDERED: CITALOPRAM 20 MG TAB PO SCH (09:00)
--- NOTE | 2021-01-03 09:17 | Hospitalist Progress Note ---
Date of Service January 03, 2021 Assessment & Plan (1) Intractable nausea and vomiting: Continue antiemetics Consult gastroenterology suspect he has some component of gastroparesis in addition to his Barretts esophagus and esophagitis. (2) Murry's esophagus with esophagitis: suspect he has some component of gastroparesis in addition to his Barretts esophagus and esophagitis. Recs: -low fiber, low fat diet, small meals 4-5 times per day -anti-emetics can use reglan 5 mg TID 30 min prior to meals for 4 weeks for empiric treatment of possible gastroparesis -continue IV protonix BID and famotidine and carafate -will need gastric emptying study as an outpatient (3) Intractable epigastric abdominal pain: Admission and Anticipated Discharge Date Admission Date: January 02, 2021 Results & Data Results & Data ([facility]) Vital Signs (Past 12 Hours) Vital Signs Temp Pulse Resp BP Pulse Ox 01/03/21 08:03 98.6 F 71 20 136/79 97 01/02/21 23:18 98.8 F 74 18 113/71 93 01/02/21 21:45 139/83 PG Care Time/CCT Total # of Minutes Spent Total Time Spent with Patient: Total time spent is greater than 50% in coordination of care (as documented) at patient's floor/unit and/or counseling patient: Coding Diagnoses Intractable nausea and vomiting R11.2 Murry's esophagus with esophagitis K22.70; K20.90 Intractable epigastric abdominal pain R10.13
--- NOTE | 2021-01-03 10:37 | Gastroenterology Progress Note ---
Date of Service January 03, 2021 Assessment & Plan (1) Murry's esophagus with esophagitis: (2) Epigastric pain: -Continue Protonix 40 mg BID -Continue Pepcid 20 mg BID -Continue Carafate 1 gm four times daily before meals and bedtime -Continue Reglan 5 mg TID 30 min prior to meals -Outpatient gastric emptying study for further evaluation Thank you for allowing us to participate in the care of this patient. If you should have any further questions or concerns, do not hesitate to contact us at [phone] or [phone]. Admission and Anticipated Discharge Date Admission Date: January 02, 2021 Subjective Patient is a 55 yo male hospitalized with persistent epigastric pain. He was seen by Dr. Najera on 01/02/21. He recommended continuation of PPI therapy, H2 blockers, & Carafate. Reglan was added as well. He reports resolution of his symptoms since the addition of this medication. He denies any new issues. Review of Systems Constitutional: no fever and no chills Respiratory: no cough and no dyspnea Cardiovascular: no chest pain Gastrointestinal: no abdominal pain Physical Exam Constitutional: well developed Respiratory: normal respiratory effort Gastrointestinal (Abdomen): Inspection/Auscultation: abdomen normal to inspection Musculoskeletal: Head/Neck/Chest: normocephalic Psychiatric: A+Ox3, euthymic affect Results & Data Results & Data ([facility]) Vital Signs (Past 12 Hours) Vital Signs Temp Pulse Resp BP Pulse Ox 01/03/21 08:03 37 C 71 20 136/79 97 01/02/21 23:18 37.1 C 74 18 113/71 93 PG Care Time/CCT Total # of Minutes Spent Total Time Spent with Patient: Total time spent is greater than 50% in coordination of care (as documented) at patient's floor/unit and/or counseling patient: Coding Level of Care Code 22774 Subseq Hosp Care Lvl 3 Diagnoses Murry's esophagus with esophagitis K22.70; K20.90 Epigastric pain R10.13
--- NOTE | 2021-01-03 18:40 | Discharge Summary ---
Date of Service January 03, 2021 Principal Diagnosis Gerd probable gastroparesis Discharge Exam The patient appeared well Vital signs as documented. Lungs are clear to auscultation and appear unlabored Cardiac exam, Rhythm is regular.. No murmurs, rubs or gallops. Abdominal exam reveals normal bowel sounds, soft non tender, no masses Extremities are nonedematous and both pedal pulses are normal. Neurologic exam is alert and oriented, no focal loss of strength or sensation Skin is without bruises or rashes Psychologically is without concerns for anxiety or depression. Discharge Data Allergies Allergy/AdvReac Type Severity Reaction Status Date / Time No Known Allergies Allergy Verified 01/02/21 03:57 Consultations 01/02/21 07:53 ED Decision to Admit Stat 01/02/21 12:38 Consult Gastroenterology Routine Hospital Course (1) Intractable nausea and vomiting: Continue antiemetics Consult gastroenterology suspect he has some component of gastroparesis in addition to his Barretts esophagus and esophagitis. (2) Murry's esophagus with esophagitis: suspect he has some component of gastroparesis in addition to his Barretts esophagus and esophagitis. Recs: -low fiber, low fat diet, small meals 4-5 times per day -anti-emetics can use reglan 5 mg TID 30 min prior to meals for 4 weeks for empiric treatment of possible gastroparesis -continue IV protonix BID and famotidine and carafate -will need gastric emptying study as an outpatient (3) Intractable epigastric abdominal pain: Total Time Total Time Spent Total Time Spent (In Minutes): Discharge 30 including discussion with Discharge Plan Discharge Items Patient Disposition: Home - Self-Care Reason For Visit: INTRACTABLE NAUSEA AND VOMITING,HEMATEMESIS Discharge Diagnosis: reflux esophagitis possible gastric emptying delay Activity: Resume your previous activity Non-emergency contact: Primary Care Provider and Sort Line Worker Call non-emergency contact if: you have any medication questions and your symptoms worsen Follow-up/Referrals: Rafiq Boucher III, MD [Primary Care Provider] - Jhonny Najera MD [Physician] - 01/10/21 9:00 am (If you need to change this appointment, please call [phone].) Diet: Low Fiber and Low Fat Diet Comment: frequent small meals Addtl Attending Provider Instructions: please take the medications prescribed by our Sort Line Worker, there a many but these will help heal your esophagus please eat frequent small meals, eating every 2-3 hours but do not eat for at least 2 hours before you go to sleep Pending Studies at Discharge: No Stand-Alone Forms: My [facility], Smoking Cessation Medications and DC Order Prescriptions: New sucralfate 100 mg/mL Suspension 1 g PO ACHS Qty: 400 RF: 2 metoclopramide HCl [Reglan] 5 mg tablet 5 mg PO ACHS Qty: 120 RF: 2 Continued fluticasone propionate 50 mcg/actuation spray,suspension 1 spray intranasal BID RF: 0 citalopram 20 mg tablet 20 mg PO QAM Qty: 90 RF: 3 gabapentin 300 mg capsule 300 mg PO TID PRN (Reason: Pain) Qty: 90 RF: 5 lisinopril 20 mg tablet 20 mg PO QAM Qty: 30 RF: 11 buprenorphine-naloxone 8-2 mg tablet, sublingual 0.5 tab SUBLINGUAL BID RF: 0 clonidine HCl 0.1 mg tablet 0.1 mg PO BID PRN (Reason: Anxiety) RF: 0 ondansetron HCl 4 mg tablet 4 mg PO QID PRN (Reason: Nausea) RF: 0 famotidine [Pepcid] 40 mg tablet 20 mg PO BID Qty: 60 RF: 3 pantoprazole 40 mg tablet,delayed release (DR/EC) 40 mg PO BID Qty: 180 RF: 3 Discontinued ferrous sulfate 325 mg (65 mg iron) tablet 325 mg PO QAM RF: 0 Dexilant 60 mg capsule,biphase delayed releas 60 mg PO DAILY RF: 0 Discharge Orders: Discharge Order (Routine); Ordered 01/03/21 Ordered By: Leonel Contreras/Other Patient Handouts: Gastroparesis Admission Data Admit Date/Time: 01/02/21 10:00 Attending Provider: Leonel Wright Admit Provider: Leonel Wright Primary Care Provider: Rafiq Boucher III Other Providers: Leonel Wright ; Jhonny Najera Other Interventions: Discharge Summary Assessment (RN) Last Done: 01/03/21 13:07 Coding Level of Care Code D/C Day Management >30 mins Diagnoses Intractable nausea and vomiting R11.2 Murry's esophagus with esophagitis K22.70; K20.90 Intractable epigastric abdominal pain R10.13
[2021-01-05 14:57] LABS: Codeine Urine NEGATIVE ng/mL (<50); Hydrocodone Urine NEGATIVE ng/mL (<50); Hydromor Urine 938 ng/mL (<50); Morphine Urine NEGATIVE ng/mL (<50); Norhydrocodone Conf Ur NEGATIVE ng/mL (<50); Noroxycodone Urine NEGATIVE ng/mL (<50); Oxycodone Urine NEGATIVE ng/mL (<50); Oxymorph Urine NEGATIVE ng/mL (<50)
== END 2021-01-03 13:31 | disposition home or self-care (01) ==
LOC: ED 03:10 → 2W 03:10

== ENCOUNTER 2021-01-11 05:59 | Observation (INO) ==
--- NOTE | 2021-01-03 14:38 | PAT Medication Instructions ---
Medication Instructions Date of Service January 03, 2021 Home Medications Medication Instructions Recorded citalopram 20 mg tablet 20 mg PO QAM #90 tab 08/22/20 gabapentin 300 mg capsule 300 mg PO TID PRN #90 cap 08/24/20 lisinopril 20 mg tablet 20 mg PO QAM #30 tab 09/25/20 famotidine [Pepcid] 20 mg PO BID #60 tab 01/03/21 metoclopramide HCl [Reglan] 5 mg PO ACHS #120 tab 01/03/21 pantoprazole 40 mg PO BID #180 tab 01/03/21 sucralfate 1 g PO ACHS #400 ml 01/03/21 citalopram 20 mg tablet 20 mg PO QAM gabapentin 300 mg capsule 300 mg PO TID PRN lisinopril 20 mg tablet 20 mg PO QAM buprenorphine-naloxone 0.5 tab SUBLINGUAL BID fluticasone propionate 50 mcg/actuation nasal spray,suspension 1 spray INTRANASAL BID clonidine HCl 0.1 mg PO BID PRN ondansetron HCl 4 mg PO QID PRN famotidine [Pepcid] 20 mg PO BID metoclopramide HCl [Reglan] 5 mg PO ACHS pantoprazole 40 mg PO BID sucralfate 1 g PO ACHS Continue as directed metoclopramide HCl [Reglan] 5 mg PO ACHS buprenorphine-naloxone 0.5 tab SUBLINGUAL BID DO NOT take the morning of surgery lisinopril 20 mg tablet 20 mg PO QAM sucralfate 1 g PO ACHS Take morning of surgery With a small sip of water, OTHERWISE NOTHING TO EAT OR DRINK AFTER MIDNIGHT: citalopram 20 mg tablet 20 mg PO QAM gabapentin 300 mg capsule 300 mg PO TID PRN (if needed) pantoprazole 40 mg PO BID ondansetron HCl 4 mg PO QID PRN (if needed) famotidine [Pepcid] 20 mg PO BID clonidine HCl 0.1 mg PO BID PRN (if needed) fluticasone propionate 50 mcg/actuation nasal spray,suspension 1 spray INTRANASAL BID Take evening before surgery gabapentin 300 mg capsule 300 mg PO TID PRN (if needed) fluticasone propionate 50 mcg/actuation nasal spray,suspension 1 spray INTRANASAL BID clonidine HCl 0.1 mg PO BID PRN (if needed) ondansetron HCl 4 mg PO QID PRN (if needed) famotidine [Pepcid] 20 mg PO BID pantoprazole 40 mg PO BID sucralfate 1 g PO ACHS Other Notes If you have any questions please call us at [phone] or [phone] or [phone] or [phone]
--- NOTE | 2021-01-04 10:06 | Anesthesiology Consultation ---
Date of Service January 04, 2021 Assessment & Plan (1) Encounter for pre-operative examination: Chart Review Chart Review: Acceptable Risk for Surgery (pending preop Covid testing ) and Patient seen in Pre Admission Testing Pt is possible difficult intubation- hx of esophagectomy secondary to esophageal cancer with chemo/XRT -Pt also states he has difficulty laying flat secondary to reflux after esophagectomy- encouraged pt to discuss with anesthesiologist DOS if head can be propped up Per [facility] appt on 01/04/21, pt resides and works in [facility] [employer]. Wears mask, uses good hand hygiene and socially distances. No recent travel. No known Covid positive contacts or Covid related symptoms. No known Covid infection in the past 90 days. Preop Covid testing 01/04/21= results pending. Educated on importance of self quarantining, social distancing and wearing mask in public both for the patient and household contacts. Pt admitted recently to [facility] from 01/02/21-01/03/21= admitted for GERD and probably gastroparesis. Pt had intractable N/V- GI consulted- suspect gastroparesis in addition to Barretts esophagus and esophagitis. Recommended low fiber/fat diet with small frequent meals. Use Reglan with meals and anti-emetics. Continue Protonix, famotidine and carafate. Will need gastric emptying study as outpatient. Teaching & Discussion Pre-Anesthesia Teaching/Discussion Notes: Instructed NPO after midnight before surgery,except medications with 15 cc of water. Medication instructions provided according to the [facility] guidelines. History Surgery Operation Date: 01/11/21 07:30 Proposed Procedures p Robotic Laparoscopic Assisted Radical Retropubic Prostatectomy, Possible Open, Possible Pelvic Lymph Node Dissection, Possible Suprapubic Tube Placement - Charlie Geiger, DO Height/Weight Height: 6 ft Weight: 67.1 kg Allergies Allergy/AdvReac Type Severity Reaction Status Date / Time No Known Allergies Allergy Verified 01/02/21 03:57 Medications Home Medications Medication Instructions Recorded Confirmed Last Taken citalopram 20 mg tablet 20 mg PO QAM #90 tab 08/22/20 01/04/21 12/06/20 05:00 gabapentin 300 mg capsule 300 mg PO TID PRN #90 cap 08/24/20 01/04/21 10/28/20 lisinopril 20 mg tablet 20 mg PO QAM #30 tab 09/25/20 01/04/21 12/06/20 05:00 buprenorphine-naloxone 0.5 tab SUBLINGUAL BID 12/06/20 01/04/21 12/06/20 05:00 fluticasone propionate 50 1 spray INTRANASAL BID 12/19/20 01/04/21 Unknown mcg/actuation nasal spray,suspension clonidine HCl 0.1 mg PO BID PRN 01/02/21 01/04/21 Unknown ondansetron HCl 4 mg PO QID PRN 01/02/21 01/04/21 Unknown famotidine [Pepcid] 20 mg PO BID #60 tab 01/03/21 01/04/21 Unknown metoclopramide HCl [Reglan] 5 mg PO ACHS #120 tab 01/03/21 01/04/21 Unknown pantoprazole 40 mg PO BID #180 tab 01/03/21 01/04/21 Unknown sucralfate 1 g PO ACHS #400 ml 01/03/21 01/04/21 Unknown Past Medical History Medical History (Updated 01/05/21 @ 10:26 by Carolin Mejia PA-C) Abdominal pain Recently admitted for abdominal pain- pain improved since discharged on 01/03/21 Abnormal weight loss 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 dx'ed with esophageal cancer in 2007 EGD in 10/2020 did show Barretts with esophagitis and ulcers - put on PPI Candidal esophagitis S/p treatment after EGD Esophageal cancer 2007 s/p chemo and radiation Fissure, anal Pt unsure if still present- getting repeat colonoscopy in the future Fracture of multiple thoracic vertebrae 25 years ago Gastro-esophageal reflux disease with esophagitis Uncontrolled Hepatitis C [id number] Hypertension Lumbago Restless leg No current issues 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 Withdrawal from opioids Was on increased opioids in the past secondary to chronic back pain- weaned off pain medications- was taking herbal supplement (Kraton)= now using Suboxone to taper off supplement Exercise / Class Metabolic Activity II 4-5 Yardwork/Stairs/Walk up hill (one flight of stairs - no chest pain or SOB ) Past Family History Family History Father Hypertension Myocardial infarction Coronary heart disease Mother Cancer Skin and Lung Brother Hypertension Other No family history of adverse response to anesthesia Denies family history of Ovarian cancer Prostate cancer Breast cancer Colorectal cancer Past Surgical History Surgical History History of anesthesia reaction pt states he woke up during 2 EGD procedures and during shoulder sx History of colonoscopy History of cystoscopy History of esophagectomy 2007 History of esophagogastroduodenoscopy (EGD) recent 10/31/2020 History of repair of rotator cuff right and left shoulder History of right knee surgery meniscectomy Hx laparoscopic cholecystectomy Status post surgery neck surgery with hardware Past Anesthesia History No Hx of Anesthesia Complications (with exception to awareness with EGDs; also awareness during shoulder surgery- patient states he was intubated ) and No Family Hx of Anesthesia Complications History of PONV No Hx of PONV and No Hx of Motion Sickness Social History Smoking Status: Former smoker tobacco type: cigarettes Do You Dip or Chew Tobacco: No Smoking End Date: 10 YRS AGO Hx Alcohol Use: No Hx Substance Use: No substance use type: prescription drug Substance Use Type Other:: Suboxone Review of Systems S/p blood transfusion s/p esophagectomy Patient denies chest pain, shortness of breath, dyspnea on exertion, cough, wheezing, palpitations. No hx of seizures, stroke, [place], apnea/snoring. No hx of blood clots. Physical Exam Vital Signs VITALS BP 119/79 P 83 TEMP 98.5 SP02 97% RESP 16 Constitutional no acute distress ENMT Mouth: no TMJ clicking Thyromental Distance: > or= 3.5 Finger Breadths (4.0) Mallampati Class: II Denies any loose or missing teeth Neck neck extension not limited Respiratory normal respiratory effort; no respiratory distress Auscultation: lungs clear to auscultation bilaterally; no wheezes Cardiovascular Rate/Rhythm: regular rate and regular rhythm Heart Sounds: no murmur Vessels: no carotid bruit Musculoskeletal Spine: no pain with cervical ROM Extremities: extremities normal to inspection Psychiatric Orientation: alert Testing Laboratory Results Blood Type AB Positive 01/04/21 10:35 Antibody Screen NEGATIVE 01/04/21 10:35 01/03/21= H/H: 13.5/39.0 SODIUM: 138 POTASSIUM: 4.6 CHLORIDE: 106 CO2: 31 BUN: 14 CREATININE: 0.84 GLUCOSE: 86 01/02/21= WBC: 6.23 PLATELETS: 212 UA: Trace ketones Electrocardiogram Date: 01/04/21 Findings: + NSR @ (75bpm) Voltage criteria for LVH. Chest X-Ray Date: 01/02/21 Findings: + NAD No pneumothorax. No pleural effusions. The heart is normal in size. Suspect mild emphysema. No new focal lung consolidations to suggest pneumonia. No evidence for pulmonary edema. Other Testing Chest CT 07/07/20= No acute findings within the chest. Stable postoperative findings consistent with esophagectomy with gastric pull-up. No contrast extravasation within the chest. No pneumomediastinum. No evidence of metastatic disease within the chest.
--- NOTE | 2021-01-04 16:51 | Electrocardiogram Report ---
Test Reason : Blood Pressure : / mmHG Vent. Rate : 075 BPM Atrial Rate : 075 BPM P-R Int : 140 ms QRS Dur : 094 ms QT Int : 366 ms P-R-T Axes : 071 054 055 degrees QTc Int : 408 ms Normal sinus rhythm Voltage criteria for left ventricular hypertrophy Abnormal ECG When compared with ECG of 02-JAN-2021 03:45, No significant change was found Confirmed by Dano Sosa ([id number]) on 01/04/2021 4:50:39 PM Referred By: Charlie Geiger Confirmed By:Dano Sosa
[2021-01-11] MEDS ORDERED: LR 15ML/HR IV SCH (06:00)
[2021-01-11] MEDS ORDERED: ceFAZolin 2000MG 2,000 MG/15 ML SYR IV SCH (06:00)
[2021-01-11] MEDS ORDERED: HEPARIN SOD 5,000 UNIT/0.5 ML VIAL SQ SCH (06:00)
[2021-01-11] MEDS ORDERED: GLYCOPYRROLATE 0.2 MG/ML VIAL ONE (06:38)
[2021-01-11] MEDS ORDERED: NEOSTIGMINE METHYLSULFATE 5 MG/5 ML SYR ONE (06:38)
[2021-01-11] MEDS ORDERED: DEXAMETHASONE SOD INJ 4 MG/ML VIAL ONE (06:38)
[2021-01-11] MEDS ORDERED: ONDANSETRON INJ 2 MG/ML 2 ML VIAL ONE ×2 (06:38→11:05)
[2021-01-11] MEDS ORDERED: LIDOCAINE HCL 2% 2 ML VIAL/AMP(20MG/ML) INFIL ONE (06:38)
[2021-01-11] MEDS ORDERED: PROPOFOL IV EMULSION 10 MG/ML 20 ML VIAL IV ONE (06:38)
[2021-01-11] MEDS ORDERED: fentaNYL citrate 100 MCG/2 ML VIAL ONE ×3 (06:39→11:07)
[2021-01-11] MEDS ORDERED: MIDAZOLAM HCL 1 MG/ML 2ML VIAL ONE (06:39)
[2021-01-11] MEDS ORDERED: ROCURONIUM BROMIDE 10 MG/ML 5 ML VIAL IV ONE ×4 (06:52→08:39)
[2021-01-11] MEDS ORDERED: SUCCINYLCHOLINE CHLORIDE 20 MG/ML 10 ML VIAL IV ONE ×2 (06:52→06:53)
[2021-01-11] MEDS ORDERED: ACETAMINOPHEN 1000 MG/100 ML IV IV ONE (06:57)
[2021-01-11] MEDS ORDERED: BUPIVACAINE 0.5 % 5 MG/1 ML MPF 30ML VIAL ONE (06:58)
--- NOTE | 2021-01-11 07:19 | History & Physical Bridge Note ---
Date of Service January 11, 2021 History & Physical Bridge Note I have examined the patient, reviewed the History & Physical and in the interval since the performance of the History & Physical I have noted the following changes of clinical significance: no changes noted
[2021-01-11] MEDS ORDERED: HYDROmorphone INJ 2 MG/ML SYR/VIAL IV PRN (07:31)
[2021-01-11] MEDS ORDERED: ePHEDrine sulfate 50 MG/ML AMP IV PRN (07:31)
[2021-01-11] MEDS ORDERED: ONDANSETRON INJ 2 MG/ML 2 ML VIAL IV PRN (07:31)
[2021-01-11] MEDS ORDERED: ATROPINE SULFATE 0.1 MG/ML 10ML SYR IV PRN (07:31)
[2021-01-11] MEDS ORDERED: SURGICEL ABSORB HEMOSTAT 2IN X 14IN TOP ONE (09:29)
[2021-01-11] MEDS ORDERED: METOCLOPRAMIDE HCL INJ 5 MG/ML 2 ML VIAL ONE (10:17)
[2021-01-11] MEDS ORDERED: ESMOLOL HCL INJ 10 MG/ML 10ML VIAL IV ONE (11:24)
--- NOTE | 2021-01-11 11:46 | Operative Report ---
PG Post Operative Report Pre & Post Diagnosis Operation Date: 01/11/21 07:30 Pre-Op Diagnosis: Prostate Cancer Post-Op Diagnosis: Prostate Cancer I identified the patient and participated in the time-out.: Yes Procedure Operation Date: 01/11/21 07:30 Actual Procedures p Robotic Laparoscopic-Assisted Prostatectomy and Bilateral Pelvic Lymph Node Dissection(Not Applicable) - Charlie Geiger DO Surgeon Charlie Geiger, II, DO Photographic Specialist Kortney SALGADO Estimated Blood Loss 100 Findings Consistent with Post-Op Diagnosis Specimens Prostate and Seminal Vesicle Left Pelvic Lymph Nodes Right Pelvic Lymph Nodes. Drains Sagastume catheter. Anesthesia Type General Complications none Disposition Disposition: Recovery Room Indications Patient with Prostate Cancer. Risk and benefits were discussed at length. Patient elected to undergo robotic assisted laparoscopic Radical Prostatectomy. Description of Procedure The patient was brought to the operative suite and placed under general endotracheal intubation anesthesia in the supine position. The patient was transferred to the dorsal lithotomy position. At this point, the patient prepped and draped in the usual sterile fashion and a timeout was completed. Preoperative antibiotics of Ancef 2 grams had been given. JACQUELYN's and SCD's were placed on the patient's lower extremities. A catheter was placed using sterile technique. With the time out completed the patient was placed into Trendelenburg and the skin at the umbilicus was anesthetized. A small incision was made superior to the umbilicus. A Varess Needle was placed and confirmed to be in the abdominal cavity. Water drop test passed. The Abdominal cavity was insufflated to 15 mmHG. The camera port was then placed. A laparoscopic camera was placed into the port and the abdominal cavity inspected. No concerning features were noted. At this point, the skin was marked for port placement and 8mm working ports were placed. The skin was anesthetized down to fascia and an approx 1cm incision was made to place the 3 x 8mm ports. A 12mm and 5 mm speech and language assistant ports were also placed in similar fashion under direct visualization. The patient was transferred into steep Trendelenburg position and the legs lowered. The robot was positioned and docked. The camera was placed and all trocars were positioned under direct visualization. Kortney SALGADO was integral in port placement, camera utilization, and docking procedure. She remained in sterile attire and then proceeded to assist the remainder of the case. At this point, I transitioned to the robotic console. At this point, the sigmoid colon was mobilized superiorly and the pelvis assessed. Adhesions were freed to allow mobilization. The peritoneum in the midline was opened between rectum and bladder and the vas deferens and seminal vesicles exposed. These were dissected with blunt technique. The vas was clipped and cut and mobilized. Cautery was used to assist dissection avoiding the tissue posteriorly near the rectum. The tissues lateral to the seminal vesicles were clipped with a hemolock and all bleeding controlled. This was ta francisco as inferior as possible from this position. Both sides were fairly adhered to the surrounding tissues with some inflammation. The medial umbilical ligaments were then identified and the peritoneum directly lateral on the right followed by the left was opened. The tissues were bluntly dissected to free the bladder's lateral attachments. A small bleeding vessel on the right was ligated. Dissection was taken down to the pubic bone and exposed the endopelvic fascia bilaterally. The medial ligaments were cut and the bladder dropped. The tissues was dissected anterior to the prostate. The endopelvic fascia on each side was then opened and the lateral edges of the prostate dissected. The Dorsal venous complex of the prostate was dissected and assessed. A 2-0 suture was used to ligate the vessels. A suspension stitch was used and clipped. Electrocautery was used to cut the anterior attachments, the puboprostatic ligaments, and venous tissues. The sagastume was manipulated to better visual the bladder neck and dissection was taken using electrocautery. The bladder neck was opened and dissected from the prostate. The UO were identifed and dissection taken in a direction to avoid each side. The vas stump and seminal vesicles were exposed and used to assist in traction to dissect. The prostatic pedicles were better exposed. The posterior prostate was dissected. An attempt was made to limit cautery and utilize cold dissection of the lateral posterior prostate to attempt preservation of the neurovascular bundle bilaterally. Hemolock clips were utilized to clip the prostatic pedicle bilaterally. The dissection was taken to the apex of the prostate. The entire posterior portion was fairly adhered and inflamed appearing. The right posterior lateral dissection was particularly adhered. The neurovascular bundle did appear to be preserved however dissection was more difficult especially on that right side. The anterior prostate was released and the urethra exposed. Cold cutting was used to open the anterior portion and expose the catheter. This was removed and the urethra incised. The prostate was further freed and grasped and removed from the field. The entire dissection bed was inspected. Hemostatic agent was placed in the region. No areas of injury or bleeding was noted. Care was taken to examine the perirectal tissues. A probe was placed and no injuries or other issues were observed. The bladder neck and urethra were then approximated with a running barbed suture starting at the 5 o'clock position and moving to the 12 o'clock on each side. This was tied at the anterior portion. A leak test was completed without any evidence of issues. The right and left pelvic lymph tissue was identified in relation to the iliac vessels. Distal dissection was taken to the Node of Christen. Inferiorly the obturator vessels and nerve were identified. Lymphatic tissue within the surround fat tissue was dissected. This packet of tissues were sent for pathologic analysis and lymph node assessment. This was done for each separate side. Hemostatic agent was placed on the exposed vessels. The entire dissection space was inspected one final time. No bleeding or injuries or areas of concern were noted. No tumor or other concerning features were noted. At this point, the robot was undocked and moved away from the patient. The patient was taken out of Trendelenberg. The port sites were all assessed laparoscopically. The endoscopic bag was moved into the midline port. The 12 mm port site was closed with the [place] device. The other ports were assessed and no issues observed. The umbilical incision was opened further exposing fascia which was then opened in order to removed the prostate in the bag. The prostate was removed. A running PDS suture was used to close fascia. The skin at each site was closed utilizing a stapling device. The area was cleaned and bandages placed on each incision. The patient was cleaned and bandaged, aroused from anesthesia, and transferred to the pacu in stable condition having tolerated the procedure well with no complications. I was present and participated in all aspects of the procedure. Kortney SALGADO was critical in the portions as mentioned above. Will plan to observe postoperatively and monitor. Sagastume to be remain in place until followup. I attest to the content of the Intraoperative Record and any orders documented therein. Any exceptions are noted below.
[2021-01-11] MEDS ORDERED: ceFAZolin 2000MG 2,000 MG/15 ML SYR IV ONE (11:58)
[2021-01-11] MEDS: fentaNYL citrate 100 MCG/2 ML VIAL IV PRN ×4 (12:03→12:18)
[2021-01-11] MEDS ORDERED: PROMETHAZINE HCL 12.5 MG in SODIUM CHLORIDE 0.9% 50 ML IV STA (12:10)
[2021-01-11] MEDS ORDERED: PROMETHAZINE HCL 12.5 MG in SODIUM CHLORIDE 0.9% 50 ML IV PRN (12:11)
[2021-01-11] MEDS ORDERED: METOCLOPRAMIDE HCL INJ 5 MG/ML 2 ML VIAL IV PRN (12:11)
[2021-01-11] MEDS ORDERED: DEXAMETHASONE SOD INJ 4 MG/ML VIAL IV PRN (12:11)
[2021-01-11] MEDS ORDERED: cloNIDine HCL 0.1 MG TAB PO PRN (13:16)
[2021-01-11] MEDS ORDERED: GABAPENTIN 300 MG CAP PO PRN (13:16)
[2021-01-11] MEDS ORDERED: ONDANSETRON 4 MG OD TAB PO PRN (13:16)
[2021-01-11] MEDS ORDERED: oxyCODONE HCL IR 5 MG TAB (IMMEDIATE RELEASE) PO PRN (13:16)
[2021-01-11] MEDS ORDERED: MoRPHine SULFATE 2 MG/ML CARP IV PRN (13:16)
--- NOTE | 2021-01-11 13:19 | Anesthesiology Progress Note ---
Date of Service January 11, 2021 Anesthesia Post Procedure Vital Signs Vital Signs: Temp Pulse Pulse Resp BP BP Pulse Ox 01/11/21 12:45 36.9 C 92 H 14 134/86 95 01/11/21 12:35 91 H 14 137/81 95 01/11/21 12:25 87 16 152/86 H 99 01/11/21 12:15 89 16 150/82 H 99 01/11/21 12:05 88 16 144/87 H 99 01/11/21 11:58 37.0 C 91 H 16 140/84 98 01/11/21 06:34 37.1 C 83 16 138/84 99 Pain Intensity Abdomen: Pain Intensity: 5 Transfer of Care Handoff Completed per policy Notes Mental Status: alert / awake / arousable and participated in evaluation Patient Amnestic to Procedure: Yes Nausea / Vomiting: adequately controlled Pain: adequately controlled Airway Patency, RR, SpO2: stable & adequate BP & HR: stable & adequate Hydration State: stable & adequate Anesthetic Complications: no major complications apparent
[2021-01-11 13:29] LABS: Basophils # (auto) 0.03 K/uL (0-0.2); Basophils % (auto) 0.2 %; Eosinophils # (auto) 0.01 K/uL (0-0.5); Eosinophils % (auto) 0.1 %; Hemoglobin 12.2 g/dL (14.0-18.0); Immature Granulocytes # (auto) 0.04 K/uL (0.00-0.02); Immature Granulocytes % (auto) 0.2 %; Lymphocytes # (auto) 1.57 K/uL (1.2-3.4); Lymphocytes % (auto) 8.4 %; Mean Corpuscular Volume 88.5 fL (80-100); Mean Platelet Volume 9.7 fL (7.4-10.4); Monocytes # (auto) 0.56 K/uL (0.11-0.59); Neutrophils # (auto) 16.39 K/uL (1.4-6.5); Neutrophils % (auto) 88.1 %; Platelet Count 264 K/uL (130-400); RDW Coefficient of Variation 13.4 % (11.5-14.5); RDW Standard Deviation 43.2 fL (36.4-46.3); Red Blood Count 4.07 M/uL (4.7-6.1)
[2021-01-11] MEDS: LACTATED RINGER'S 1,000 ML IV SCH ×2 (13:30→22:01)
[2021-01-11 13:33] LABS: Mean Corpuscular Hgb Conc 33.9 g/dL (32-36)
[2021-01-11 13:40] LABS: BUN Creatinine Ratio 12.1 (10-20); Calcium 8.6 mg/dl (8.5-10.1); Creatinine Clr Calc Pharmacy 80.8 ml/min; Est GFR (African American) 102.6; Est GFR (Non-African American) 88.5; Potassium 4.8 mmol/L (3.5-5.1)
[2021-01-11] MEDS: MoRPHine SULFATE 2 MG/ML CARP IV PRN ×3 (15:32→21:54)
[2021-01-11] MEDS: SUCRALFATE 1 GM/10 ML UDC PO SCH ×2 (16:48→20:00)
[2021-01-11] MEDS: METOCLOPRAMIDE HCL 5 MG TABLET PO SCH ×2 (16:48→20:00)
[2021-01-11] MEDS: ceFAZolin 2000MG 2,000 MG/15 ML SYR IV SCH (18:09)
[2021-01-11] MEDS: ACETAMINOPHEN 325 MG TAB PO PRN (18:09)
[2021-01-11] MEDS: FAMOTIDINE 20 MG TAB PO SCH (20:00)
[2021-01-11] MEDS: PANTOprazole 40 MG TAB PO SCH (20:00)
[2021-01-11] MEDS: HEPARIN SOD 5,000 UNIT/0.5 ML VIAL SQ SCH (20:01)
[2021-01-11] MEDS: FLUTICASONE PROPIONATE NA SPR 16 GM BTL NAE SCH (20:01)
[2021-01-12] MEDS: ACETAMINOPHEN 325 MG TAB PO PRN (00:49)
[2021-01-12] MEDS: MoRPHine SULFATE 2 MG/ML CARP IV PRN ×5 (03:14→20:20)
[2021-01-12] MEDS: ceFAZolin 2000MG 2,000 MG/15 ML SYR IV SCH (03:15)
[2021-01-12 06:40] LABS: Basophils # (auto) 0.04 K/uL (0-0.2); Basophils % (auto) 0.4 %; Eosinophils # (auto) 0.02 K/uL (0-0.5); Eosinophils % (auto) 0.2 %; Hematocrit (blood only) 32.3 % (42-52); Immature Granulocytes # (auto) 0.01 K/uL (0.00-0.02); Immature Granulocytes % (auto) 0.1 %; Lymphocytes % (auto) 19.8 %; Mean Corpuscular Hemoglobin 29.7 pg (25-34); Mean Corpuscular Hgb Conc 34.1 g/dL (32-36); Mean Corpuscular Volume 87.3 fL (80-100); Mean Platelet Volume 10.4 fL (7.4-10.4); Monocytes # (auto) 1.19 K/uL (0.11-0.59); Monocytes % (auto) 13.1 %; Neutrophils # (auto) 6.01 K/uL (1.4-6.5); Neutrophils % (auto) 66.4 %; Platelet Count 266 K/uL (130-400); RDW Coefficient of Variation 13.3 % (11.5-14.5); RDW Standard Deviation 43.2 fL (36.4-46.3); White Blood Count 9.07 K/uL (4.8-10.8)
[2021-01-12 07:12] LABS: BUN Creatinine Ratio 14.7 (10-20); Calcium 8.2 mg/dl (8.5-10.1); Creatinine Clr Calc Pharmacy 103.3 ml/min; Est GFR (Non-African American) 101.8; Potassium 4.5 mmol/L (3.5-5.1)
[2021-01-12] MEDS: LACTATED RINGER'S 1,000 ML IV SCH ×2 (07:40→17:17)
[2021-01-12] MEDS: SUCRALFATE 1 GM/10 ML UDC PO SCH ×4 (07:41→20:21)
[2021-01-12] MEDS: METOCLOPRAMIDE HCL 5 MG TABLET PO SCH ×4 (07:41→20:22)
[2021-01-12] MEDS: lisinopril 20 MG TAB PO SCH (07:42)
[2021-01-12] MEDS: FLUTICASONE PROPIONATE NA SPR 16 GM BTL NAE SCH ×2 (07:42→20:21)
[2021-01-12] MEDS: CITALOPRAM 20 MG TAB PO SCH (07:42)
[2021-01-12] MEDS: PANTOprazole 40 MG TAB PO SCH ×2 (07:42→20:23)
[2021-01-12] MEDS: FAMOTIDINE 20 MG TAB PO SCH ×2 (07:42→20:22)
[2021-01-12] MEDS: HEPARIN SOD 5,000 UNIT/0.5 ML VIAL SQ SCH ×2 (07:42→20:23)
--- NOTE | 2021-01-12 08:11 | Urology Progress Note ---
Date of Service January 12, 2021 Assessment & Plan (1) Prostate cancer: 55 year-old male patient admitted s/p robotic laparoscopic-assisted prostatectomy and bilateral pelvic lymph node dissection. -POD #1 robotic assisted laparoscopic prostatectomy with Dr. Geiger. -Patient currently afebrile. -Labs reviewed - white count and creatinine stable. -Maintain sagastume catheter. -Continue with clear liquid diet for breakfast, consider advancing to regular for lunch if he tolerates clears. -Encourage ambulation, out of bed this morning. -Continue pain management, will add PRN IV Ketorolac to medication regimen. -Will continue to monitor and reassess later today. -Presuming he continues to clinically progress, will plan to discharge home today or tomorrow. -Expected clinical course reviewed with patient, all questions answered. Admission and Anticipated Discharge Date Admission Date: January 11, 2021 Subjective POD #1 robotic laparoscopic-assisted prostatectomy and bilateral pelvic lymph node dissection. Patient reports no complications overnight. Does report mid abdominal discomfort, rates this 7 out of 10. Has been utilizing PO and IV pain medications for discomfort. Denies nausea or vomiting. States he has not ate a meal since surgery, tolerating water. Has not been out of bed. Denies dizziness/lightheadedness. Denies fevers or chills. Tolerating sagastume catheter without discomfort. Sagastume intact draining clear yellow urine. Chart review: Currently afebrile. Did have elevated temperature last evening, Tmax 38.1. Most recent BP 161/90 Wbc 9.07 Hgb 11.0 Creatinine 0.75 Sagastume output overnight 525 cc. Denies additional urologic concerns today. Review of Systems Constitutional: as per Subjective / HPI; no fever and no chills Gastrointestinal: as per Subjective / HPI; no nausea and no vomiting Genitourinary: + as per Subjective / HPI Neurologic: as per Subjective / HPI Physical Exam Constitutional: well developed and well nourished; no acute distress and not ill appearing Respiratory: normal respiratory effort and able to speak in complete sentences; no respiratory distress and no audible wheezes Gastrointestinal (Abdomen): Inspection/Auscultation: abdomen normal to inspection; abdomen not distended Percussion/Palpation: + abdomen tender and abdomen soft; no guarding Skin: Incisions to abdomen clean, dry and intact. Dressings intact. Psychiatric: Orientation: alert, oriented x 3 and cooperative Affect: euthymic affect Genitourinary: Sagastume catheter intact draining clear yellow urine. Results & Data ([facility]) Vital Signs (Past 12 Hours) Vital Signs Temp Pulse Resp BP BP Pulse Ox 01/12/21 07:17 37.0 C 84 16 161/90 H 94 01/12/21 02:00 36.9 C 94 H 17 138/88 93 01/11/21 22:45 37.9 C H 98 H 18 156/92 H 93 PG Care Time/CCT Total # of Minutes Spent Total Time Spent with Patient: Total time spent is greater than 50% in coordination of care (as documented) at patient's floor/unit and/or counseling patient: Coding Level of Care Code None Diagnoses Prostate cancer C61
[2021-01-12] MEDS: KETOROLAC 30 MG/ML VIAL IV PRN (08:41)
[2021-01-12] MEDS: oxyCODONE HCL IR 5 MG TAB (IMMEDIATE RELEASE) PO PRN ×3 (13:30→22:13)
[2021-01-13] MEDS: KETOROLAC 30 MG/ML VIAL IV PRN ×2 (00:14→07:49)
[2021-01-13] MEDS: MoRPHine SULFATE 2 MG/ML CARP IV PRN (00:57)
[2021-01-13] MEDS: LACTATED RINGER'S 1,000 ML IV SCH (03:14)
[2021-01-13] MEDS: oxyCODONE HCL IR 5 MG TAB (IMMEDIATE RELEASE) PO PRN ×3 (03:17→13:08)
[2021-01-13 07:43] LABS: Basophils # (auto) 0.03 K/uL (0-0.2); Basophils % (auto) 0.5 %; Eosinophils # (auto) 0.37 K/uL (0-0.5); Eosinophils % (auto) 5.8 %; Hematocrit (blood only) 31.5 % (42-52); Hemoglobin 10.5 g/dL (14.0-18.0); Immature Granulocytes # (auto) 0.01 K/uL (0.00-0.02); Immature Granulocytes % (auto) 0.2 %; Lymphocytes # (auto) 1.35 K/uL (1.2-3.4); Lymphocytes % (auto) 21.1 %; Mean Corpuscular Hemoglobin 29.5 pg (25-34); Mean Corpuscular Hgb Conc 33.3 g/dL (32-36); Mean Corpuscular Volume 88.5 fL (80-100); Mean Platelet Volume 9.8 fL (7.4-10.4); Monocytes # (auto) 0.85 K/uL (0.11-0.59); Monocytes % (auto) 13.3 %; Neutrophils % (auto) 59.1 %; Platelet Count 218 K/uL (130-400); RDW Coefficient of Variation 13.1 % (11.5-14.5); RDW Standard Deviation 42.9 fL (36.4-46.3); Red Blood Count 3.56 M/uL (4.7-6.1); White Blood Count 6.41 K/uL (4.8-10.8)
[2021-01-13] MEDS: ACETAMINOPHEN 325 MG TAB PO PRN (07:48)
[2021-01-13] MEDS: SUCRALFATE 1 GM/10 ML UDC PO SCH ×2 (07:54→11:24)
[2021-01-13] MEDS: METOCLOPRAMIDE HCL 5 MG TABLET PO SCH ×2 (07:54→11:24)
[2021-01-13 07:58] LABS: BUN Creatinine Ratio 10.8 (10-20); Calcium 8.8 mg/dl (8.5-10.1); Creatinine Clr Calc Pharmacy 103.8 ml/min; Est GFR (African American) 118.7; Est GFR (Non-African American) 102.4; Potassium 4.2 mmol/L (3.5-5.1)
[2021-01-13] MEDS: PANTOprazole 40 MG TAB PO SCH (10:03)
[2021-01-13] MEDS: CITALOPRAM 20 MG TAB PO SCH (10:03)
[2021-01-13] MEDS: FAMOTIDINE 20 MG TAB PO SCH (10:03)
[2021-01-13] MEDS: lisinopril 20 MG TAB PO SCH (10:04)
[2021-01-13] MEDS: FLUTICASONE PROPIONATE NA SPR 16 GM BTL NAE SCH (10:04)
[2021-01-13] MEDS: HEPARIN SOD 5,000 UNIT/0.5 ML VIAL SQ SCH (10:05)
--- NOTE | 2021-01-13 12:16 | Urology Progress Note ---
Date of Service January 13, 2021 Assessment & Plan (1) Prostate cancer: 55 year-old male patient admitted s/p robotic laparoscopic-assisted prostatectomy and bilateral pelvic lymph node dissection. POD #2 robotic assisted laparoscopic prostatectomy with Dr. Geiger. Patient currently afebrile. Has been ambulating more. Is tolerating diet. Abdominal pain has improved. Discussed postoperative care. Discussed bandaging and wound care. Patient is okay to remove bandage later today and bandage as needed. Also okay to shower. Recommended against soaking. Patient is improving overall without major issues. Has been ambulating. Discussed postoperative care. Plan will be to follow-up in approximately 10 days for catheter removal and staple removal. Patient call if any fevers chills. Admission and Anticipated Discharge Date Admission Date: January 11, 2021 Subjective Postop from urologic surgery. Patient has been tolerating well, but is having some pain and discomfort. Incisions have been mild sore. Having some abdominal distension/gas pains. Has tolerated catheter. Has not had severe pain or uncontrollable pain. Patient has been ambulating. Has not had bowel movement or major change. No new nausea or vomiting. Had tolerated anesthesia without major problems Tolerated liquid and now is advancing to more solid diet postoperatively. Review of Systems Review of Systems: All systems reviewed & are unremarkable except as noted in HPI & below Physical Exam Physical Exam: General: Alert in no acute distress. HEENT: Normocephalic Atraumatic. Inspection normal. Cranial Nerves 2-12 Grossly intact. Normal inspection of face. Normal inspection of neck. Psychologic: Normal affect. Respiratory: Nonlabored. No use of accessory muscles. No tachypnea or dyspnea. Cardiovascular: No tachycardia Skin: [place] and Dry. No rashes or visible lesions. Extremities/Lymphatics: No edema Abdomen: Appropriately tender. Mild distended. No rebound or guarding. Wound: Clean, dry, covered. Results & Data ([facility]) Vital Signs (Past 12 Hours) Vital Signs Temp Pulse Resp BP Pulse Ox 01/13/21 07:12 36.6 C 81 16 148/95 H 95 PG Care Time/CCT Total # of Minutes Spent Total Time Spent with Patient: Total time spent is greater than 50% in coordination of care (as documented) at patient's floor/unit and/or counseling patient: Coding Level of Care Code 84284 Subseq Hosp Care Lvl 2 Diagnoses Prostate cancer C61
--- NOTE | 2021-01-13 12:22 | Discharge Summary ---
Date of Service January 13, 2021 Admission HPI Per Admitting Provider See H&P Admission Exam Per Admitting Provider See H&P Principal Diagnosis Prostate cancer Discharge Exam General: Alert in no acute distress. HEENT: Normocephalic Atraumatic. Inspection normal. Psychologic: Normal affect. Skin: [place] and Dry. No rashes or visible lesions. Abdomen: Soft Non-distended. No rebound or guarding. Discharge Data Allergies Allergy/AdvReac Type Severity Reaction Status Date / Time No Known Allergies Allergy Verified 01/02/21 03:57 Procedures Performed Operation Date: 01/11/21 07:30 Actual Procedures p Robotic Laparoscopic-Assisted Prostatectomy and Bilateral Pelvic Lymph Node Dissection(Not Applicable) - Charlie Geiger DO Hospital Course (1) Prostate cancer: 55 year-old male patient admitted s/p robotic laparoscopic-assisted prostatectomy and bilateral pelvic lymph node dissection. POD #2 robotic assisted laparoscopic prostatectomy with Dr. Geiger. Patient currently afebrile. Has been ambulating more. Is tolerating diet. Abdominal pain has improved. Discussed postoperative care. Discussed bandaging and wound care. Patient is okay to remove bandage later today and bandage as needed. Also okay to shower. Recommended against soaking. Patient is improving overall without major issues. Has been ambulating. Discussed postoperative care. Plan will be to follow-up in approximately 10 days for catheter removal and staple removal. Patient call if any fevers chills. Total Time Total Time Spent Total Time Spent (In Minutes): 10 minutes Total Time Includes: Examination of the Patient, Discharge Planning, Medication Reconciliation and Communication With Other Providers Discharge Plan Discharge Items Patient Disposition: Home - Self-Care Reason For Visit: Prostate Cancer Discharge Diagnosis: Prostate Cancer Condition on Discharge: Good Activity: Per Instructions section Lifting: No more than 25 pounds Bathing Comment: No tub baths/soaking. Okay to shower tomorrow. Sexual Activity: Wait until after follow-up appointment Exercise/Sports: Wait until after follow-up appointment Driving/Machine Use: Do not drive while on narcotic pain medication Non-emergency contact: Surgeon and Urologist Call non-emergency contact if: your pain is not controlled, your pain is concerning for you, your temperature is above 101, your wound has increased redness, your wound has increased drainage and your wound pain has increased Follow-up/Referrals: Rafiq Boucher III, MD [Primary Care Provider] - Diet: Regular Addtl Attending Provider Instructions: Please take all medications as prescribed and keep all follow-ups as scheduled. Please call our office at [phone] with any questions, concerns or need to reschedule appointments for any reason. We are happy to assist you We have sent an antibiotic to your pharmacy of choice. Please begin antibiotic as prescribed the day BEFORE your scheduled voiding trial at [facility]. Please continue antibiotic every 12 hours through the day AFTER your voiding trial. Activity: We recommend having someone with you for the first few days after surgery to help care for you. For the first 2 weeks after surgery, we would like you to get up and walk around your house. However, we recommend limit physical activity that would increase your heart rate. This will allow your body to rest and heal. Take naps if you feel tired. Don't lift anything heavier than 10 pounds, mow the law or ride a bicycle until your follow-up appointment. Please avoid long car rides. Home Care: Unless directed otherwise, drink 6 to 8 glasses of water a day (enough to keep your urine light colored). This will also help keep a healthy flow of urine. We recommend using a stool softener for the first two weeks to avoid constipation. Bell Catheter or Suprapubic Catheter care: Keep the catheter well secured with either a leg back or leg strap with large bag. Empty your bag when it's about half full. You may notice some blood in the bag. This is normal after surgery and while the catheter is in place. Use mild soap (such as Dove or Dial) and water to wash the catheter and the head of your penis daily, or more frequently if needed. Return to your normal diet, we encourage good protein intake to promote healing. You may shower as normal. Please avoid tub baths or soaking until catheter removed and incisions well healed. Wearing sweat pants while you have the catheter is recommended, they will be more comfortable. Follow-up Your follow up appointments for having your catheter removed, and follow up with your physician should already be scheduled. If you have any questions regarding this, please contact our office. Your final pathology report will be discussed at your physician follow-up appointment. Call [facility] at [phone] right away if you have any of the following: Chest pain or trouble breathing (call 911 or go to the hospital) Fever of 101F or higher, uncontrolled vomiting Heavy bleeding, clots, or bright red blood from the catheter Catheter that falls out or stops draining Foul-smelling discharge from your catheter Redness, swelling, warmth, or increased pain at your incision site Drainage, pus, or bleeding from your incision Pending Studies at Discharge: Yes Studies:: Pathology Stand-Alone Forms: My [facility], Smoking Cessation Medications and DC Order Prescriptions: New docusate sodium 100 mg capsule 100 mg PO BID Qty: 30 RF: 3 oxycodone-acetaminophen [Percocet] 7.5-325 mg tablet 1 tab PO Q8H PRN (Reason: pain) Qty: 14 RF: 0 Continued fluticasone propionate 50 mcg/actuation spray,suspension 1 spray intranasal BID RF: 0 citalopram 20 mg tablet 20 mg PO QAM Qty: 90 RF: 3 gabapentin 300 mg capsule 300 mg PO TID PRN (Reason: Pain) Qty: 90 RF: 5 lisinopril 20 mg tablet 20 mg PO QAM Qty: 30 RF: 11 buprenorphine-naloxone 8-2 mg Tablet, Sublingual 1 tab SUBLINGUAL BID RF: 0 Dexilant 60 mg capsule,biphase delayed releas 60 mg PO DIRECTED RF: 0 clonidine HCl 0.1 mg tablet 0.1 mg PO BID PRN (Reason: Anxiety) RF: 0 ondansetron HCl 4 mg tablet 4 mg PO QID PRN (Reason: Nausea) RF: 0 sucralfate 100 mg/mL Suspension 1 g PO ACHS Qty: 400 RF: 2 metoclopramide HCl [Reglan] 5 mg tablet 5 mg PO ACHS Qty: 120 RF: 2 famotidine [Pepcid] 40 mg tablet 20 mg PO BID Qty: 60 RF: 3 pantoprazole 40 mg tablet,delayed release (DR/EC) 40 mg PO BID Qty: 180 RF: 3 Discharge Orders: Discharge Order (Routine); Ordered 01/13/21 Ordered By: Charlie Geiger Admission Data Admit Date/Time: 01/11/21 12:04 Attending Provider: Charlie Geiger Admit Provider: Charlie Geiger Primary Care Provider: Rafiq Boucher III Coding Level of Care Code D/C Day Management <30 mins Diagnoses Prostate cancer C61
== END 2021-01-13 15:10 | disposition home or self-care (01) ==
LOC: ASU 05:59 → INTOOBSV 12:04 → PACUINP 12:04 → 3N 13:13

== ENCOUNTER 2021-04-07 10:52 | Observation (INO) ==
[2021-04-07] MEDS ORDERED: FAMOTIDINE 20MG IV PUSH 20 MG/5 ML SYR IV STA (11:45)
[2021-04-07] MEDS ORDERED: HYDROmorphone INJ 1 MG/ML SYRINGE IV STA (11:45)
[2021-04-07] MEDS ORDERED: ONDANSETRON INJ 2 MG/ML 2 ML VIAL IV STA ×2 (11:45→13:04)
[2021-04-07] MEDS ORDERED: SODIUM CHLORIDE 0.9% 1000ML 1,000 ML IV SCH (11:45)
[2021-04-07 11:50] LABS: Basophils # (auto) 0.04 K/uL (0-0.2); Basophils % (auto) 0.6 %; Eosinophils # (auto) 0.03 K/uL (0-0.5); Eosinophils % (auto) 0.4 %; Hematocrit (blood only) 38.6 % (42-52); Hemoglobin 12.7 g/dL (14.0-18.0); Immature Granulocytes # (auto) 0.01 K/uL (0.00-0.02); Immature Granulocytes % (auto) 0.1 %; Mean Corpuscular Hemoglobin 27.6 pg (25-34); Mean Corpuscular Hgb Conc 32.9 g/dL (32-36); Mean Corpuscular Volume 83.9 fL (80-100); Monocytes # (auto) 0.53 K/uL (0.11-0.59); Monocytes % (auto) 7.5 %; Neutrophils # (auto) 5.23 K/uL (1.4-6.5); Neutrophils % (auto) 74.4 %; Platelet Count 280 K/uL (130-400); RDW Coefficient of Variation 14.5 % (11.5-14.5); RDW Standard Deviation 44.4 fL (36.4-46.3); White Blood Count 7.04 K/uL (4.8-10.8)
--- NOTE | 2021-04-07 11:50 | Emergency Department Note ---
History of Present Illness General Chief complaint: Vomiting Stated complaint: VOMITING Time Seen by Provider: 04/07/21 11:32 History of Present Illness Maximum Pain Intensity: 6 This is a 55-year-old male who presents to the emergency department via private vehicle with complaints of "upper abdominal pain, vomiting". The patient notes that he awoke this morning around 4:30 AM with epigastric abdominal discomfort and vomiting. He notes that this feels similar to previous episodes of esophagitis. He follows locally with Dr. Herman of gastroenterology. He denies any chest pain or shortness of breath. He states that unfortunately despite trying to take his meds at home he had vomited these back up. He continues to vomit. This prompted arrival here to the ED. He rates his current discomfort is a 6/10. He notes no fevers but does feel hot and cold flashes. He denies seeing any blood in the vomit. Patient notes a history of esophageal cancer with associated surgery, radiation, chemotherapy. Home Medications Medication Instructions Recorded Confirmed Type citalopram 20 mg tablet 20 mg PO QAM #90 tab 08/22/20 04/07/21 Rx lisinopril 20 mg tablet 20 mg PO QAM #30 tab 09/25/20 04/07/21 Rx clonidine HCl 0.1 mg PO BID PRN 01/02/21 04/07/21 History famotidine [Pepcid] 20 mg PO BID #60 tab 01/03/21 04/07/21 Rx pantoprazole 40 mg PO BID #180 tab 01/03/21 04/07/21 Rx buprenorphine-naloxone 1 tab SUBLINGUAL BID 01/09/21 04/07/21 History Dexilant 60 mg PO DIRECTED 01/11/21 04/07/21 History gabapentin 300 mg capsule 300 mg PO TID PRN #90 cap 02/05/21 04/07/21 Rx Allergies Allergy/AdvReac Type Severity Reaction Status Date / Time No Known Allergies Allergy Verified 04/07/21 13:50 Past Med/Surg History Medical History Abdominal pain Recently admitted for abdominal pain- pain improved since discharged on 01/03/21 Abnormal weight loss 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 dx'ed with esophageal cancer in 2007 EGD in 10/2020 did show Barretts with esophagitis and ulcers - put on PPI Candidal esophagitis S/p treatment after EGD Esophageal cancer 2007 s/p chemo and radiation Fissure, anal Pt unsure if still present- getting repeat colonoscopy in the future Fracture of multiple thoracic vertebrae 25 years ago Gastro-esophageal reflux disease with esophagitis Uncontrolled Hepatitis C [id number] Hypertension Lumbago Restless leg No current issues 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 Withdrawal from opioids Was on increased opioids in the past secondary to chronic back pain- weaned off pain medications- was taking herbal supplement (Kraton)= now using Suboxone to taper off supplement Surgical History History of anesthesia reaction pt states he woke up during 2 EGD procedures and during shoulder sx History of colonoscopy History of cystoscopy History of esophagectomy 2007 History of esophagogastroduodenoscopy (EGD) recent 10/31/2020 History of repair of rotator cuff right and left shoulder History of right knee surgery meniscectomy Hx laparoscopic cholecystectomy Status post surgery neck surgery with hardware Family History Father Hypertension Myocardial infarction Coronary heart disease Mother Cancer Skin and Lung Brother Hypertension Other No family history of adverse response to anesthesia Denies family history of Ovarian cancer Prostate cancer Breast cancer Colorectal cancer Social History Smoking Status: Never smoker Tobacco Type: Cigarettes Years Smoked: 10; Second Hand Exposure: No; Do You Dip or Chew Tobacco: No; Hx Alcohol Use: No Hx Substance Use: No Preferred Language: Urdu Communication Ability: Effective Visual Impairment: No Limitations Hearing Ability: Normal Alarm Mechanism Adjuster Required: No Beliefs That Will Affect Care: None marital status: Current Living Situation: Spouse current occupational status: employed 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 Other Information That Helps Us Care for You: No Feels Safe at Home: Yes Safety Concerns: Feels Safe At This Time caffeine: Yes Dental Care, Regularly: Yes Physical Activity Frequency: Daily Seatbelt Use: always Sunscreen Use: No Assistive Devices: None Review of Systems A total of 10 systems reviewed and were otherwise negative Physical Exam Vital Signs Vital Signs - 24 hr 04/07/21 10:56 04/07/21 11:09 04/07/21 11:22 Temperature 35.5 C L Temperature Source Temporal Artery Scan Pulse Rate 87 72 78 Respiratory Rate 20 22 17 Blood Pressure 157/94 H Blood Pressure Mean 115 Pulse Oximetry 99 Oxygen Delivery Method Room Air Sepsis Recent Fever Within 48 Hours No Sepsis New/Unexplained Change in Mental Status No Sepsis Action Taken by Nursing No Action Required 04/07/21 11:58 04/07/21 12:00 04/07/21 12:12 Temperature Temperature Source Pulse Rate 73 Respiratory Rate 18 17 19 Blood Pressure Blood Pressure Mean Pulse Oximetry Oxygen Delivery Method Sepsis Recent Fever Within 48 Hours Sepsis New/Unexplained Change in Mental Status Sepsis Action Taken by Nursing 04/07/21 12:19 04/07/21 12:39 04/07/21 12:40 Temperature Temperature Source Pulse Rate 79 0 L 0 L Respiratory Rate 20 Blood Pressure 163/97 H Blood Pressure Mean 119 Pulse Oximetry Oxygen Delivery Method Sepsis Recent Fever Within 48 Hours Sepsis New/Unexplained Change in Mental Status Sepsis Action Taken by Nursing 04/07/21 12:51 04/07/21 13:00 04/07/21 13:10 Temperature Temperature Source Pulse Rate 89 73 91 H Respiratory Rate 30 H 26 H 25 H Blood Pressure Blood Pressure Mean Pulse Oximetry Oxygen Delivery Method Sepsis Recent Fever Within 48 Hours Sepsis New/Unexplained Change in Mental Status Sepsis Action Taken by Nursing 04/07/21 13:20 04/07/21 13:30 04/07/21 13:40 Temperature Temperature Source Pulse Rate 87 76 76 Respiratory Rate 19 18 19 Blood Pressure Blood Pressure Mean Pulse Oximetry Oxygen Delivery Method Sepsis Recent Fever Within 48 Hours Sepsis New/Unexplained Change in Mental Status Sepsis Action Taken by Nursing 04/07/21 13:50 04/07/21 14:00 Temperature Temperature Source Pulse Rate 69 94 H Respiratory Rate 20 19 Blood Pressure Blood Pressure Mean Pulse Oximetry Oxygen Delivery Method Sepsis Recent Fever Within 48 Hours Sepsis New/Unexplained Change in Mental Status Sepsis Action Taken by Nursing VITAL SIGNS - Vital signs and nursing notes were reviewed. Stable and afebrile. GENERAL -55-year-old male appearing his stated age who is in no acute distress but is holding an emesis bag with a small amount of nonbloody appearing emesis and appears to be experiencing some pain. Communicates well with provider and answers questions appropriately. SKIN - Without rashes. No meningeal or petechial rash. HEAD - NC/AT. EYES - PERRL with EOMI bilaterally. Sclera anicteric. Palpebral conjunctiva pink and moist with no injection noted. EARS - No deformities of external structures noted on gross examination bilaterally. NOSE - Midline and without cyanosis. No epistaxis or purulent drainage noted. Septum midline without deviation or septal hematoma noted. MOUTH/OROPHARYNX - Without perioral cyanosis. NECK - Neck with FROM.No nuchal rigidity. LUNGS - Chest wall symmetric without accessory muscle use, intercostals retractions, or central cyanosis. Normal vesicular breath sounds CTA B/L. No wheezes, rales, or rhonchi appreciated. CARDIAC - RRR with S1/S2. No murmur, rubs, or gallops appreciated. ABDOMEN - Abdominal contour normal without pulsations or visible masses. Mild epigastric abdominal tenderness palpation. Otherwise bowel sounds are normoactive. Abdomen is soft and nonrigid. PSYCH - A&O, and cooperates fully with examiner. Pt is very pleasant and interacts well with examiner. Course Administered Medications Sodium Chloride (Nss 1000ml) 1,000 mls @ 100 mls/hr IV .Q10H YANETH Stop: 05/07/21 16:59 Last Admin: 04/07/21 16:48 Dose: 100 mls/hr Documented by: [id number] Metoclopramide HCl (Metoclopramide Hcl Inj 5 Mg/Ml 2 Ml Vial) 10 mg IV Q6 YANETH Stop: 05/07/21 17:59 Last Admin: 04/07/21 16:48 Dose: 10 mg Documented by: [id number] Discontinued Medications Al Hydrox/Mg Hydrox/Simethicone (Gi Cocktail Ed Use) 1 dose PO ONE ONE Stop: 04/07/21 13:05 Last Admin: 04/07/21 13:23 Dose: 1 dose Documented by: [id number] Hydromorphone HCl (Hydromorphone Inj 1 Mg/Ml Syringe) 0.5 mg IV NOW STA Stop: 04/07/21 11:46 Last Admin: 04/07/21 11:56 Dose: 0.5 mg Documented by: [id number] Hydromorphone HCl (Hydromorphone Inj 0.5 Mg/0.5 Ml Syr) 0.5 mg IV NOW STA Stop: 04/07/21 13:05 Last Admin: 04/07/21 13:23 Dose: 0.5 mg Documented by: [id number] Sodium Chloride (Nss 1000ml) 1,000 mls @ 999 mls/hr IV .Q1H1M YANETH Stop: 04/07/21 12:45 Last Infusion: 04/07/21 13:24 Dose: 0 mls/hr Documented by: [id number] Admin: 04/07/21 11:45 Dose: 999 mls/hr Documented by: [id number] Famotidine (Pepcid 20mg Iv Push) 20 mg in 5 mls @ 2.5 mls/min IV NOW STA Stop: 04/07/21 11:46 Last Admin: 04/07/21 11:55 Dose: 2.5 mls/min Documented by: [id number] Metoclopramide HCl (Metoclopramide Hcl Inj 5 Mg/Ml 2 Ml Vial) Confirm Administered Dose 10 mg .ROUTE .STK-MED ONE Stop: 04/07/21 16:46 Last Admin: 04/07/21 16:53 Dose: Not Given Documented by: [id number] Ondansetron HCl (Ondansetron Inj 2 Mg/Ml 2 Ml Vial) 4 mg IV NOW STA Stop: 04/07/21 11:46 Last Admin: 04/07/21 11:56 Dose: 4 mg Documented by: [id number] Ondansetron HCl (Ondansetron Inj 2 Mg/Ml 2 Ml Vial) 4 mg IV NOW STA Stop: 04/07/21 13:05 Last Admin: 04/07/21 13:23 Dose: 4 mg Documented by: [id number] Medical Decision Making Laboratory Data Result diagrams: 04/07/21 11:20 04/07/21 11:20 Lab Results 04/07/21 04/07/21 04/07/21 Range/Units 11:20 11:20 13:10 WBC 7.04 (4.8-10.8) K/uL RBC 4.60 L (4.7-6.1) M/uL Hgb 12.7 L (14.0-18.0) g/dL Hct 38.6 L (42-52) % MCV 83.9 (80-100) fL MCH 27.6 (25-34) pg MCHC 32.9 (32-36) g/dL RDW Std Deviation 44.4 (36.4-46.3) fL RDW Coeff of Dorothy 14.5 (11.5-14.5) % Plt Count 280 (130-400) K/uL MPV 11.0 H (7.4-10.4) fL Immature Gran % (Auto) 0.1 % Neut % (Auto) 74.4 % Lymph % (Auto) 17.0 % Jerome % (Auto) 7.5 % Eos % (Auto) 0.4 % Baso % (Auto) 0.6 % Neut # (Auto) 5.23 (1.4-6.5) K/uL Lymph # (Auto) 1.20 (1.2-3.4) K/uL Jerome # (Auto) 0.53 (0.11-0.59) K/uL Eos # (Auto) 0.03 (0-0.5) K/uL Baso # (Auto) 0.04 (0-0.2) K/uL Immature Gran # (Auto) 0.01 (0.00-0.02) K/uL Sodium 141 (136-145) mmol/L Potassium 3.8 (3.5-5.1) mmol/L Chloride 110 H (98-107) mmol/L Carbon Dioxide 23 (21-32) mmol/L Anion Gap 8.0 (3-11) BUN 11 (7-18) mg/dl Creatinine 0.94 (0.6-1.4) mg/dl Est Cr Clr Drug Dosing 85.8 ml/min Est GFR ( Amer) 103.9 ml/min Est GFR (Non-Af Amer) 89.6 ml/min BUN/Creatinine Ratio 12.1 (10-20) Glucose 116 H (70-99) mg/dl Calcium 9.5 (8.5-10.1) mg/dl Magnesium 2.2 (1.8-2.4) mg/dl Total Bilirubin 0.6 (0.2-1) mg/dl AST 16 (15-37) U/L ALT 22 (12-78) U/L Alkaline Phosphatase 97 (45-117) U/L Troponin I < 0.015 (0-0.045) ng/ml Total Protein 7.2 (6.4-8.2) gm/dl Albumin 3.8 (3.4-5.0) gm/dl Globulin 3.4 (2.5-4.0) gm/dl Albumin/Globulin Ratio 1.1 (0.9-2) Lipase 175 (73-393) U/L COVID-19 Eval Order Covid19 at [facility] SARS-CoV-2 (PCR) (Negative) 04/07/21 Range/Units 13:10 WBC (4.8-10.8) K/uL RBC (4.7-6.1) M/uL Hgb (14.0-18.0) g/dL Hct (42-52) % MCV (80-100) fL MCH (25-34) pg MCHC (32-36) g/dL RDW Std Deviation (36.4-46.3) fL RDW Coeff of Doorthy (11.5-14.5) % Plt Count (130-400) K/uL MPV (7.4-10.4) fL Immature Gran % (Auto) % Neut % (Auto) % Lymph % (Auto) % Jerome % (Auto) % Eos % (Auto) % Baso % (Auto) % Neut # (Auto) (1.4-6.5) K/uL Lymph # (Auto) (1.2-3.4) K/uL Jerome # (Auto) (0.11-0.59) K/uL Eos # (Auto) (0-0.5) K/uL Baso # (Auto) (0-0.2) K/uL Immature Gran # (Auto) (0.00-0.02) K/uL Sodium (136-145) mmol/L Potassium (3.5-5.1) mmol/L Chloride (98-107) mmol/L Carbon Dioxide (21-32) mmol/L Anion Gap (3-11) BUN (7-18) mg/dl Creatinine (0.6-1.4) mg/dl Est Cr Clr Drug Dosing ml/min Est GFR ( Amer) ml/min Est GFR (Non-Af Amer) ml/min BUN/Creatinine Ratio (10-20) Glucose (70-99) mg/dl Calcium (8.5-10.1) mg/dl Magnesium (1.8-2.4) mg/dl Total Bilirubin (0.2-1) mg/dl AST (15-37) U/L ALT (12-78) U/L Alkaline Phosphatase (45-117) U/L Troponin I (0-0.045) ng/ml Total Protein (6.4-8.2) gm/dl Albumin (3.4-5.0) gm/dl Globulin (2.5-4.0) gm/dl Albumin/Globulin Ratio (0.9-2) Lipase (73-393) U/L COVID-19 Eval Order SARS-CoV-2 (PCR) NEGATIVE (Negative) Imaging Data Radiologist's Impression: Chest X-Ray 04/07/21 11:39 XR chest 1V portable CLINICAL HISTORY: emesis COMPARISON STUDY: 01/02/2021 FINDINGS: The heart is the upper limits of normal in size. There is no failure. There is no focal pulmonary consolidation. There are no pleural effusions. Surgical clips are visualized projecting over the left hemidiaphragm. There are postsurgical changes within the cervical spine.[ IMPRESSION: No active disease in the chest. ACT 112: Negative or not required by law. Electronically signed by: Igor Alejo M.D. 04/07/2021 11:55 AM MDM Narrative Patient was seen and evaluated as above in room C09. Review was performed of nursing notes and vital signs. I did review pertinent previous visits and patient history. After obtaining a thorough history and physical examination the above work up was performed. Patient presents to us today with vomiting and secondarily developed epigastric abdominal discomfort. Patient notes that he has had similar in the past of which has been consistent with esophagitis. He has a history of esophageal cancer. Clinically he appears nontoxic but is holding an emesis bag with a small amount of nonbloody emesis. Options of care were discussed with the patient. IV access was established. Labs were drawn. He was given IV antiemetics as well as IV analgesics. He was given IV fluids. He was reevaluated with minimal improvement. Additional an tiemetics and analgesics were ordered. Given his persistence of symptoms and history of such I did find it reasonable to consult the hospitalist for further evaluation and management. Patient notes that when he is generally to this point with his symptoms hospitalization has been the subsequent steps. I believe this is reasonable. Patient happy plan of care. Laboratory studies reveal no leukocytosis. There is anemia with hemoglobin of 12.7. No emergent metabolic disturbance. Patient's troponin is negative. Urinalysis does not suggest infection. Covid testing is negative. Chest x-ray is without acute process. No free air. I did discuss benefit versus risk of proceeding with a CT scan of the abdomen and pelvis however the patient at this time would prefer that a CT scan is not performed. I believe that it is reasonable to admit without CT scan pending clinical course. Patient has a benign abdominal exam. GCS: 15 EKG was also obtained given location of symptoms and this reveals sinus rhythm at a rate of 75 bpm. Sinus arrhythmia noted. No definitive ST elevation. QTc 431. QRS 90. In the evaluation and treatment of this patient, the following differential diagnoses were considered: ASC, NM, Pneumonia, GERD, Cholecystitis, Ascending Cholangitis, Cholydocholithiasis, Bowel Obstruction, PE, Amongst Others. Impression & Plan Abdominal pain, epigastric, Nausea & vomiting Discharge Plan Visit Data Chief Complaint: Vomiting Stated Complaint: VOMITING ED Provider: Heriberto Morocho ED Midlevel Provider: Carlos Yeager Discharge Problem: Abdominal pain, epigastric, Nausea & vomiting Patient Disposition: Admitted As Inpatient Condition: Good Discharge Instructions Interventions: ED Discharge Assessment Last Done: 04/07/21 16:03
--- NOTE | 2021-04-07 11:56 | XRay Report ---
XR chest 1V portable CLINICAL HISTORY: emesis COMPARISON STUDY: 01/02/2021 FINDINGS: The heart is the upper limits of normal in size. There is no failure. There is no focal pul monary consolidation. There are no pleural effusions. Surgical clips are visualized projecting over t he left hemidiaphragm. There are postsurgical changes within the cervical spine.[ IMPRESSION: No active disease in the chest. ACT 112: Negative or not required by law. Electronically signed by: Igor Alejo M.D. 04/07/2021 11:55 AM
[2021-04-07 11:59] LABS: Alanine Aminotransferase 22 U/L (12-78); Albumin Level 3.8 gm/dl (3.4-5.0); Aspartate Aminotransferase 16 U/L (15-37); BUN Creatinine Ratio 12.1 (10-20); Blood Urea Nitrogen 11 mg/dl (7-18); Calcium 9.5 mg/dl (8.5-10.1); Carbon Dioxide 23 mmol/L (21-32); Chloride 110 mmol/L (98-107); Creatinine Clr Calc Pharmacy 85.8 ml/min; Est GFR (African American) 103.9 ml/min; Est GFR (Non-African American) 89.6 ml/min; Glucose 116 mg/dl (70-99); Lipase 175 U/L (73-393); Magnesium 2.2 mg/dl (1.8-2.4); Potassium 3.8 mmol/L (3.5-5.1); Sodium 141 mmol/L (136-145)
[2021-04-07 12:04] LABS: Albumin Globulin Ratio 1.1 (0.9-2); Alkaline Phosphatase 97 U/L (45-117); Bilirubin,Total 0.6 mg/dl (0.2-1); Globulin 3.4 gm/dl (2.5-4.0); Total Protein 7.2 gm/dl (6.4-8.2); Troponin I < 0.015 ng/ml (0-0.045)
[2021-04-07] MEDS ORDERED: HYDROmorphone INJ 0.5 MG/0.5 ML SYR IV STA (13:04)
[2021-04-07] MEDS ORDERED: GI COCKTAIL ED USE PO ONE (13:04)
--- NOTE | 2021-04-07 13:59 | History & Physical Report ---
Date of Service April 07, 2021 Assessment & Plan (1) Nausea: Patient has acute nausea vomiting, consider esophagitis/Murry's esophagus. Question of gastroparesis Place in nonmonitored observation Will order IV famotidine 20 mg twice daily along with Protonix 40 mg twice daily if available IV Reglan 10 mg 3 times daily ATC trial of clear liquids, advance as tolerated Patient is known to Dr. Herman, will consult him for further recommendations We will hold off on other medications until patient is back orals. Patient was given IV Dilaudid, will reorder but try to use very sparingly History of Present Illness Chief Complaint: Abdominal pain, nausea and vomiting Primary Care Provider: Rafiq Boucher MD This is a 55-year-old male with past medical history of previous esophageal cancer, recent prostatectomy for prostate cancer that presents today complaining of nausea vomiting as well as abdominal pain. Patient appears to be in some distress but he is a decent historian. Patient tells me that he was doing well until yesterday evening when he started to "feel sick ". There is a little bit of reflux type symptoms but no overt abdominal pain. And he tells me he went to sleep when he woke up approximately 430 this morning he had significant abdominal pain. I was having nausea vomiting was not able to hold down anything. I tells me he has had symptoms like this before and they are consistent with his intermittent esophagitis. This is what prompted him to come to the emergency room for further evaluation. I did review his old records and saw mention of gastroparesis before as a possible etiology but the patient does not recall this ever being a diagnosis. Allergies Allergy/AdvReac Type Severity Reaction Status Date / Time No Known Allergies Allergy Verified 04/07/21 13:50 Home Medications Medication Instructions Recorded Confirmed Type citalopram 20 mg tablet 20 mg PO QAM #90 tab 08/22/20 02/15/21 Rx lisinopril 20 mg tablet 20 mg PO QAM #30 tab 09/25/20 02/15/21 Rx clonidine HCl 0.1 mg PO BID PRN 01/02/21 02/15/21 History famotidine [Pepcid] 20 mg PO BID #60 tab 01/03/21 02/15/21 Rx pantoprazole 40 mg PO BID #180 tab 01/03/21 02/15/21 Rx buprenorphine-naloxone 1 tab SUBLINGUAL BID 01/09/21 02/15/21 History Dexilant 60 mg PO DIRECTED 01/11/21 02/15/21 History gabapentin 300 mg capsule 300 mg PO TID PRN #90 cap 02/05/21 02/15/21 Rx Past Med/Surg History Medical History Abdominal pain Recently admitted for abdominal pain- pain improved since discharged on 01/03/21 Abnormal weight loss 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 dx'ed with esophageal cancer in 2007 EGD in 10/2020 did show Barretts with esophagitis and ulcers - put on PPI Candidal esophagitis S/p treatment after EGD Esophageal cancer 2007 s/p chemo and radiation Fissure, anal Pt unsure if still present- getting repeat colonoscopy in the future Fracture of multiple thoracic vertebrae 25 years ago Gastro-esophageal reflux disease with esophagitis Uncontrolled Hepatitis C [id number] Hypertension Lumbago Restless leg No current issues 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 Withdrawal from opioids Was on increased opioids in the past secondary to chronic back pain- weaned off pain medications- was taking herbal supplement (Kraton)= now using Suboxone to taper off supplement Surgical History History of anesthesia reaction pt states he woke up during 2 EGD procedures and during shoulder sx History of colonoscopy History of cystoscopy History of esophagectomy 2007 History of esophagogastroduodenoscopy (EGD) recent 10/31/2020 History of repair of rotator cuff right and left shoulder History of right knee surgery meniscectomy Hx laparoscopic cholecystectomy Status post surgery neck surgery with hardware Family History Father Hypertension Myocardial infarction Coronary heart disease Mother Cancer Skin and Lung Brother Hypertension Other No family history of adverse response to anesthesia Denies family history of Ovarian cancer Prostate cancer Breast cancer Colorectal cancer Social History Smoking Status: Current every day smoker Tobacco Type: Cigarettes Years Smoked: 10; Second Hand Exposure: Yes (MOTHER SMOKED); Hx Alcohol Use: No Hx Substance Use: No Preferred Language: Taiwanese Communication Ability: Effective Visual Impairment: No Limitations Hearing Ability: Normal Editor City Required: No Beliefs That Will Affect Care: None marital status: Current Living Situation: Spouse current occupational status: employed 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 Feels Safe at Home: Yes caffeine: Yes Dental Care, Regularly: Yes Physical Activity Frequency: Daily Seatbelt Use: always Sunscreen Use: No Assistive Devices: None Review of Systems Constitutional: + anorexia; no fever, no chills, no weakness, no weight loss and no weight gain Eyes: as per Subjective / HPI Respiratory: no cough, no chest congestion, no dyspnea and no dyspnea on exertion Cardiovascular: no chest pain, no orthopnea, no palpitations, no lightheadedness and no edema Gastrointestinal: + abdominal pain, + belching, + heartburn, + nausea and + vomiting; no constipation and no diarrhea/loose stools Musculoskeletal: no back pain, no neck pain, no joint pain, no stiffness and no myalgia Integumentary: no rash Neurologic: no gait abnormality, no unsteadiness, no falls and no generalized weakness Physical Exam Constitutional: cooperative; no acute distress Neck: trachea midline, no thyromegaly Respiratory: normal respiratory effort Auscultation: lungs clear to auscultation bilaterally; no crackles, no rales, no rhonchi and no wheezes Cardiovascular: Rate/Rhythm: regular rate and regular rhythm Heart Sounds: normal S1 and normal S2; no murmur Gastrointestinal (Abdomen): Inspection/Auscultation: abdomen normal to inspection Percussion/Palpation: abdomen soft; abdomen nontender, no guarding, abdomen not rigid and no hepatosplenomegaly Skin: no rashes, warm and dry Results & Data Results & Data ([facility]) Vital Signs (Past 12 Hours) Vital Signs Temp Pulse Resp Pulse Ox 04/07/21 10:56 35.5 C L 87 20 99 PG Care Time/CCT Total # of Minutes Spent Total Time Spent with Patient: Total time spent is greater than 50% in coordination of care (as documented) at patient's floor/unit and/or counseling patient: Coding Level of Care Code 06746 OBS Care - Level 3 Diagnoses Nausea R11.0
[2021-04-07] MEDS ORDERED: ACETAMINOPHEN 325 MG TAB PO PRN (16:26)
[2021-04-07] MEDS ORDERED: HYDROmorphone INJ 0.5 MG/0.5 ML SYR IV PRN (16:26)
[2021-04-07] MEDS ORDERED: METOCLOPRAMIDE HCL INJ 5 MG/ML 2 ML VIAL ONE (16:45)
[2021-04-07] MEDS: SODIUM CHLORIDE 0.9% 1000ML 1,000 ML IV SCH (16:48)
[2021-04-07] MEDS: METOCLOPRAMIDE HCL INJ 5 MG/ML 2 ML VIAL IV SCH (16:48)
[2021-04-07 17:27] LABS: Appearance Urine Clear (Clear); Bilirubin Urine Negative (Negative); Blood Urine Negative (Negative); Color Urine Yellow; Glucose Urine UA Negative (Negative); Ketones Urine Trace (Negative); Leukocyte Esterase Urine Negative (Negative); Nitrite Urine Negative (Negative); Protein Urine Negative (Negative); Urobilinogen Urine Negative (Negative)
[2021-04-07] MEDS: SUCRALFATE 1 GM/10 ML UDC PO SCH ×2 (17:49→21:12)
[2021-04-07] MEDS: ondansetron HCL 8 MG in DEXTROSE 5% 50 ML IV PRN (20:08)
[2021-04-07] MEDS: FAMOTIDINE 20 MG in SYRINGE 3 ML IV SCH (21:11)
[2021-04-07] MEDS: PANTOprazole 40 MG in SYRINGE 0 ML IV SCH (21:13)
[2021-04-08] MEDS: METOCLOPRAMIDE HCL INJ 5 MG/ML 2 ML VIAL IV SCH ×5 (00:59→23:01)
[2021-04-08] MEDS: SODIUM CHLORIDE 0.9% 1000ML 1,000 ML IV SCH ×3 (02:04→20:06)
[2021-04-08 06:27] LABS: Basophils # (auto) 0.03 K/uL (0-0.2); Basophils % (auto) 0.3 %; Hematocrit (blood only) 35.6 % (42-52); Hemoglobin 11.8 g/dL (14.0-18.0); Immature Granulocytes # (auto) 0.01 K/uL (0.00-0.02); Immature Granulocytes % (auto) 0.1 %; Lymphocytes # (auto) 1.27 K/uL (1.2-3.4); Lymphocytes % (auto) 14.7 %; Mean Corpuscular Hemoglobin 27.6 pg (25-34); Mean Corpuscular Hgb Conc 33.1 g/dL (32-36); Mean Corpuscular Volume 83.4 fL (80-100); Mean Platelet Volume 9.6 fL (7.4-10.4); Monocytes # (auto) 0.87 K/uL (0.11-0.59); Monocytes % (auto) 10.1 %; Neutrophils # (auto) 6.45 K/uL (1.4-6.5); Neutrophils % (auto) 74.8 %; Platelet Count 234 K/uL (130-400); RDW Coefficient of Variation 14.4 % (11.5-14.5); RDW Standard Deviation 43.8 fL (36.4-46.3); Red Blood Count 4.27 M/uL (4.7-6.1); White Blood Count 8.63 K/uL (4.8-10.8)
[2021-04-08 06:48] LABS: BUN Creatinine Ratio 18.8 (10-20); Calcium 8.6 mg/dl (8.5-10.1); Creatinine Clr Calc Pharmacy 113.3 ml/min; Est GFR (African American) 121.4 ml/min; Est GFR (Non-African American) 104.8 ml/min; Magnesium 2.1 mg/dl (1.8-2.4)
[2021-04-08] MEDS: SUCRALFATE 1 GM/10 ML UDC PO SCH ×4 (08:22→20:07)
[2021-04-08] MEDS: FAMOTIDINE 20 MG in SYRINGE 3 ML IV SCH ×2 (08:23→20:08)
[2021-04-08] MEDS: PANTOprazole 40 MG in SYRINGE 0 ML IV SCH ×2 (08:23→20:08)
[2021-04-08] MEDS: SENNA 8.6 MG TAB PO SCH (08:23)
--- NOTE | 2021-04-08 08:32 | Gastrointestinal Consultation ---
Date of Consultation April 08, 2021 Assessment & Plan (1) Nausea & vomiting: Feeling better today Advance diet as tolerated Gastric emptying study as outpatient Continue twice daily IV PPI therapy Continue IV antiemetics and supportive care No plans for invasive testing on this admission History of Present Illness Reason for Consultation: Recurrent Nausea/Vomiting Attending Physician: Hernan Connor MD History of Present Illness Shahbaz Arechiga is a 55 yo CM well known to our service, with a significant PMHx of Esophageal cancer s/p esophagectomy with gastric pull-through. He last underwent an EGD by Dr. Najera in October 2020, and was noted to have reflux esophagitis. He underwent a colonoscopy in November 2020, and was found to have internal hemorrhoids and a poor bowel prep. Over the past few years, he has had recurrent admissions for nausea and vomiting, and has had recurrent bria esophagitis. He was last seen in our office by NAOMI Ross, and was treated empirically for Bria esophagitis. He presented to the ER last night with intractable nausea and vomiting, which started earlier yesterday. He states that he had several episodes of non-bloody emesis, and became weak, prompting him to come to the ER for fluid hydration. He was noted to be slightly anemic in the ER, and his Chest X-ray was normal. He was admitted and given antiemetics and IV PPI therapy. At the time I saw him this AM, he states that he is feeling better, but still has intermittent nausea. He does believe the antiemetics have helped his symptoms. He denies any dysphagia, odynophagia, hematemesis, melena or hematochezia. He denies any further complaints. Allergies Allergy/AdvReac Type Severity Reaction Status Date / Time No Known Allergies Allergy Verified 04/07/21 13:50 Home Medications Medication Instructions Recorded Confirmed Type citalopram 20 mg tablet 20 mg PO QAM #90 tab 08/22/20 04/07/21 Rx lisinopril 20 mg tablet 20 mg PO QAM #30 tab 09/25/20 04/07/21 Rx clonidine HCl 0.1 mg PO BID PRN 01/02/21 04/07/21 History famotidine [Pepcid] 20 mg PO BID #60 tab 01/03/21 04/07/21 Rx pantoprazole 40 mg PO BID #180 tab 01/03/21 04/07/21 Rx buprenorphine-naloxone 1 tab SUBLINGUAL BID 01/09/21 04/07/21 History Dexilant 60 mg PO DIRECTED 01/11/21 04/07/21 History gabapentin 300 mg capsule 300 mg PO TID PRN #90 cap 02/05/21 04/07/21 Rx Patient History Medical History Abdominal pain Recently admitted for abdominal pain- pain improved since discharged on 01/03/21 Abnormal weight loss 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 dx'ed with esophageal cancer in 2007 EGD in 10/2020 did show Barretts with esophagitis and ulcers - put on PPI Candidal esophagitis S/p treatment after EGD Esophageal cancer 2007 s/p chemo and radiation Fissure, anal Pt unsure if still present- getting repeat colonoscopy in the future Fracture of multiple thoracic vertebrae 25 years ago Gastro-esophageal reflux disease with esophagitis Uncontrolled Hepatitis C [id number] Hypertension Lumbago Restless leg No current issues 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 Withdrawal from opioids Was on increased opioids in the past secondary to chronic back pain- weaned off pain medications- was taking herbal supplement (Kraton)= now using Suboxone to taper off supplement Surgical History History of anesthesia reaction pt states he woke up during 2 EGD procedures and during shoulder sx History of colonoscopy History of cystoscopy History of esophagectomy 2007 History of esophagogastroduodenoscopy (EGD) recent 10/31/2020 History of repair of rotator cuff right and left shoulder History of right knee surgery meniscectomy Hx laparoscopic cholecystectomy Status post surgery neck surgery with hardware Family History Father Hypertension Myocardial infarction Coronary heart disease Mother Cancer Skin and Lung Brother Hypertension Other No family history of adverse response to anesthesia Denies family history of Ovarian cancer Prostate cancer Breast cancer Colorectal cancer Social History Smoking Status: Never smoker Tobacco Type: Cigarettes Years Smoked: 10; Second Hand Exposure: No; Do You Dip or Chew Tobacco: No; Hx Alcohol Use: No Hx Substance Use: No Preferred Language: Hebrew Communication Ability: Effective Visual Impairment: No Limitations Hearing Ability: Normal Manager Delivery Required: No Beliefs That Will Affect Care: None marital status: Current Living Situation: Spouse current occupational status: employed 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 Other Information That Helps Us Care for You: No Feels Safe at Home: Yes Safety Concerns: Feels Safe At This Time caffeine: Yes Dental Care, Regularly: Yes Physical Activity Frequency: Daily Seatbelt Use: always Sunscreen Use: No Assistive Devices: None Review of Systems Review of Systems: All systems reviewed & are unremarkable except as noted in HPI & below Physical Exam Constitutional: WD/WN, vitals as above Eyes: + anicteric sclerae ENMT: external ear and nose normal, oropharynx normal Neck: trachea midline, no thyromegaly Respiratory: normal respiratory effort, lungs clear to auscultation Cardiovascular: RRR, no murmur, no edema Gastrointestinal (Abdomen): normal bowel sounds, soft, nontender, no hepatosplenomegaly Skin: no rashes, warm and dry Psychiatric: A+Ox3, euthymic affect Results & Data ([facility]) Vital Signs (Past 12 Hours) Vital Signs Temp Pulse Resp BP Pulse Ox 04/08/21 07:35 36.9 C 71 17 146/84 H 95 04/07/21 22:00 36.9 C 77 16 112/69 95 PG Care Time/CCT Total # of Minutes Spent Total Time Spent with Patient: Total time spent is greater than 50% in coordination of care (as documented) at patient's floor/unit and/or counseling patient: Coding Level of Care Code 92199 Inpt Consult Level 3 Diagnoses Nausea & vomiting R11.2
[2021-04-08] MEDS: BUPRENORPHINE/NALOXONE 8/2 MG TAB SL SCH ×2 (09:17→20:06)
--- NOTE | 2021-04-08 09:24 | Electrocardiogram Report ---
Test Reason : Blood Pressure : / mmHG Vent. Rate : 075 BPM Atrial Rate : 075 BPM P-R Int : 132 ms QRS Dur : 090 ms QT Int : 386 ms P-R-T Axes : 075 022 055 degrees QTc Int : 431 ms Poor data quality, interpretation may be adversely affected Sinus rhythm with marked sinus arrhythmia Left ventricular hypertrophy with secondary ST changes Abnormal ECG When compared with ECG of 04-JAN-2021 10:42, No significant change was found Confirmed by Jose Dave ([id number]) on 04/08/2021 9:24:26 AM Referred By: REFERRED SELF Confirmed By:Jose Dave
--- NOTE | 2021-04-08 10:20 | Hospitalist Progress Note ---
Date of Service April 08, 2021 Assessment & Plan (1) Nausea & vomiting: Improved. Continue Reglan. Advance diet as tolerated per GI. Patient to have gastric emptying study as outpatient per Dr. Herman. Continue Pantoprazole 40mg IV BID. Possible d/c in AM if n/v improved and tolerating diet. (2) Abdominal pain, epigastric: Pain improved. Continue supportive management. (3) Murry's esophagus with esophagitis: Hx of. No plans for invasive testing on this admission by GI. (4) Prostate cancer: S/p RALRP ON 01/11/21. Follows with urology. Patient on buprenorphine-naloxone 8-2 BID as an outpatient. Will resume today. Disposition: possible d/c home in AM. Admission and Anticipated Discharge Date Admission Date: April 07, 2021 Subjective 55 yo male with a hx of esophageal cancer and esophagitis admitted for intractable n/v. Patient reports vomiting has resolved. Nausea persists, but is improved with Reglan. He is tolerating clear liquids. Patient takes suboxone as an outpatient. He is concerned about developing SEs as he has not had the medication for the past 2 days. Patient reports his last BM was 2 days ago as well. Review of Systems Constitutional: no fever and no chills Eyes: no worsening vision Ear, Nose, Mouth, Throat: no dizziness Respiratory: no dyspnea Cardiovascular: no chest pain Gastrointestinal: + nausea and + constipation (last BM 2 days ago ); no abdom inal pain and no vomiting Genitourinary: no dysuria Psychiatric: no confusion Physical Exam Constitutional: average body habitus; no acute distress ENMT: Ears: no hearing impairment Neck: trachea midline, no thyromegaly Respiratory: normal respiratory effort, lungs clear to auscultation Cardiovascular: RRR, no murmur, no edema Gastrointestinal (Abdomen): Inspection/Auscultation: normal bowel sounds Percussion/Palpation: abdomen soft; abdomen nontender Psychiatric: A+Ox3, euthymic affect Lymphatic: no lymphadenopathy Results & Data Results & Data ([facility]) Vital Signs (Past 12 Hours) Vital Signs Temp Pulse Resp BP Pulse Ox 04/08/21 07:35 36.9 C 71 17 146/84 H 95 PG Care Time/CCT Total # of Minutes Spent Total Time Spent with Patient: Total time spent is greater than 50% in coordination of care (as documented) at patient's floor/unit and/or counseling patient: Coding Level of Care Code 68011 Subseq Obs Care Lvl 2 Medical Decision Making Moderate Complexity Diagnoses Nausea & vomiting R11.2 Abdominal pain, epigastric R10.13 Murry's esophagus with esophagitis K22.70; K20.90 Prostate cancer C61
[2021-04-08] MEDS: ondansetron HCL 8 MG in DEXTROSE 5% 50 ML IV PRN (20:21)
[2021-04-08] MEDS ORDERED: MELATONIN 3 MG TAB PO PRN (21:54)
[2021-04-09] MEDS ORDERED: CALCIUM CARBONATE 500 MG CHEWABLE TAB PO STA (02:13)
[2021-04-09] MEDS: ondansetron HCL 8 MG in DEXTROSE 5% 50 ML IV PRN (03:27)
[2021-04-09] MEDS: SODIUM CHLORIDE 0.9% 1000ML 1,000 ML IV SCH (05:18)
[2021-04-09] MEDS: METOCLOPRAMIDE HCL INJ 5 MG/ML 2 ML VIAL IV SCH ×2 (05:20→13:59)
--- NOTE | 2021-04-09 09:19 | Gastroenterology Progress Note ---
Date of Service April 09, 2021 Assessment & Plan (1) Nausea & vomiting: -Continue Protonix 40 mg BID while hospitalized -Patient takes Dexilant 60 mg daily as an outpatient -He will need a gastric emptying study upon discharge; This recommendation initially was made prior to his multiple recent hospitalizations. (2) Murry esophagus: -Continue outpatient management per Tala SALGADO who has very recently evaluated Mr. Arechiga on multiple occasions. Admission and Anticipated Discharge Date Admission Date: April 07, 2021 Supervising Physician Co-Signing Physician Notes Agree with SHAWANDA Pardo as above The patient was discharged prior to my evaluation Subjective Patient is a 55 yo male with nausea, vomiting, & ongoing esophagitis. Patient is not having any further n/v. He notes improvement of his symptoms. He did have a minor relapse of symptoms last night after eating a heavy meal with pot roast. Things have improved at this point. He continues BID PPI therapy. Review of Systems Constitutional: no fever and no chills Gastrointestinal: no abdominal pain, no nausea and no vomiting Physical Exam Constitutional: well developed Respiratory: normal respiratory effort Cardiovascular: Extremities: no edema Gastrointestinal (Abdomen): normal bowel sounds, soft, nontender, no hepatosplenomegaly Psychiatric: A+Ox3, euthymic affect Results & Data Results & Data ([facility]) Vital Signs (Past 12 Hours) Vital Signs Temp Pulse Resp BP BP Pulse Ox 04/09/21 07:19 36.8 C 65 16 142/81 H 95 04/08/21 23:14 36.9 C 75 16 126/76 94 PG Care Time/CCT Total # of Minutes Spent Total Time Spent with Patient: Total time spent is greater than 50% in coordination of care (as documented) at patient's floor/unit and/or counseling patient: Coding Level of Care Code 11561 Subseq Hosp Care Lvl 2 Diagnoses Nausea & vomiting R11.2 Murry esophagus K22.70
[2021-04-09] MEDS: SUCRALFATE 1 GM/10 ML UDC PO SCH ×3 (09:37→17:07)
[2021-04-09] MEDS: PANTOprazole 40 MG in SYRINGE 0 ML IV SCH (09:37)
[2021-04-09] MEDS: FAMOTIDINE 20 MG in SYRINGE 3 ML IV SCH (09:42)
[2021-04-09] MEDS: BUPRENORPHINE/NALOXONE 8/2 MG TAB SL SCH (09:42)
[2021-04-09] MEDS: SENNA 8.6 MG TAB PO SCH (10:23)
--- NOTE | 2021-04-09 10:46 | Hospitalist Progress Note ---
Date of Service April 09, 2021 Assessment & Plan (1) Nausea & vomiting: -Continue Protonix 40 mg BID while hospitalized -Patient takes Dexilant 60 mg daily as an outpatient -He will need a gastric emptying study upon discharge; This recommendation initially was made prior to his multiple recent hospitalizations. (2) Murry esophagus: -Continue outpatient management per Tala SALGADO who has very recently evaluated Mr. Arechiga on multiple occasions. (3) Hypertension: continues on clonidine and lisinopril (4) Depression: citalopram Admission and Anticipated Discharge Date Admission Date: April 07, 2021 Results & Data Results & Data ([facility]) Vital Signs (Past 12 Hours) Vital Signs Temp Pulse Resp BP BP Pulse Ox 04/09/21 07:19 98.2 F 65 16 142/81 H 95 04/08/21 23:14 98.4 F 75 16 126/76 94 PG Care Time/CCT Total # of Minutes Spent Total Time Spent with Patient: Total time spent is greater than 50% in coordination of care (as documented) at patient's floor/unit and/or counseling patient: Coding Diagnoses Nausea & vomiting R11.2 Murry esophagus K22.70 Hypertension I10 Depression F32.9
--- NOTE | 2021-04-09 19:15 | Discharge Summary ---
Date of Service April 09, 2021 Admission HPI Per Admitting Provider This is a 55-year-old male with past medical history of previous esophageal cancer, recent prostatectomy for prostate cancer that presents today complaining of nausea vomiting as well as abdominal pain. Patient appears to be in some distress but he is a decent historian. Patient tells me that he was doing well until yesterday evening when he started to "feel sick ". There is a little bit of reflux type symptoms but no overt abdominal pain. And he tells me he went to sleep when he woke up approximately 430 this morning he had significant abdominal pain. I was having nausea vomiting was not able to hold down anything. I tells me he has had symptoms like this before and they are consistent with his intermittent esophagitis. This is what prompted him to come to the emergency room for further evaluation. I did review his old records and saw mention of gastroparesis before as a possible etiology but the patient does not recall this ever being a diagnosis. Principal Diagnosis esophagitis Barretts Discharge Exam The patient appeared well Vital signs as documented. Lungs are clear to auscultation and appear unlabored Cardiac exam, Rhythm is regular.. No murmurs, rubs or gallops. Abdominal exam reveals normal bowel sounds, soft non tender, no masses Extremities are nonedematous and both pedal pulses are normal. Neurologic exam is alert and oriented, no focal loss of strength or sensation Skin is without bruises or rashes Psychologically is without concerns for anxiety or depression. Discharge Data Allergies Allergy/AdvReac Type Severity Reaction Status Date / Time No Known Allergies Allergy Verified 04/07/21 13:50 Consultations 04/07/21 16:26 Consult Gastroenterology Routine Hospital Course (1) Nausea & vomiting: -Continue Protonix 40 mg BID or Dexilant 60 mg daily as an outpatient short course of carafate and pepcid in addition to assist in healing -He will need a gastric emptying study upon discharge; This recommendation initially was made prior to his multiple recent hospitalizations. I contacted the GI office they will arrange (2) Murry esophagus: -Continue outpatient management per Tala SALGADO who has very recently evaluated Mr. Arechiga on multiple occasions. will continue to have outpt follow up (3) Hypertension: continues on clonidine and lisinopril (4) Depression: citalopram Total Time Total Time Spent Total Time Spent (In Minutes): It required greater than 30 minutes to prepare this patient for discharge Discharge Plan Discharge Items Patient Disposition: Home - Self-Care Reason For Visit: esophagitis Discharge Diagnosis: esophagitis Murry esophagus Condition on Discharge: Good Activity: Per Instructions section Non-emergency contact: Primary Care Provider and [employer] Call non-emergency contact if: you have any medication questions and your symptoms worsen Follow-up/Referrals: Rafiq Boucher III, MD [Primary Care Provider] - 04/12/21 11:30 am Tala Christine CRNP [Nurse Practitioner] - 04/17/21 3:00 pm Diet: Heart Healthy Diet Comment: please have soft non acidic foods and frequent smaller meals Addtl Attending Provider Instructions: you have been diagnosed with esophagitis and this can be helped by eating small amounts of soft foods frequently through the day, instead of the typical 3 large meals, also avoids foods that are high in acid such as citrus and tomato, and avoid alcohol and coffee. Gi Medicine has recommended a Stomach emptying evaluation and this will need to be scheduled as an outpt , typically they are done on Wednesdays and the office will be contacting you to set this up You have been prescribed a new medicine to help ease your esophagitis This is called Carafate. How to use Carafate oral. Take this medicine by mouth, usually 4 times daily, on an empty stomach at least 1 hour before a meal. Use this medication regularly over the next 10 days in order to get the most benefit from it. Pending Studies at Discharge: No Stand-Alone Forms: [employer], Work/School Release, Smoking Cessation Medications and DC Order Prescriptions: New sucralfate 100 mg/mL Suspension 1 g PO QID Qty: 400 RF: 0 Continued citalopram 20 mg tablet 20 mg PO QAM Qty: 90 RF: 3 lisinopril 20 mg tablet 20 mg PO QAM Qty: 30 RF: 11 gabapentin 300 mg capsule 300 mg PO TID PRN (Reason: Pain) Qty: 90 RF: 5 buprenorphine-naloxone 8-2 mg Tablet, Sublingual 1 tab SUBLINGUAL BID RF: 0 Dexilant 60 mg capsule,biphase delayed releas 60 mg PO DIRECTED RF: 0 clonidine HCl 0.1 mg tablet 0.1 mg PO BID PRN (Reason: Anxiety) RF: 0 famotidine [Pepcid] 40 mg tablet 20 mg PO BID Qty: 60 RF: 3 pantoprazole 40 mg tablet,delayed release (DR/EC) 40 mg PO BID Qty: 180 RF: 3 Discharge Orders: Discharge Order (Routine); Ordered 04/09/21 Ordered By: Leonel Contreras/Other Patient Handouts: Gastroesophageal Reflux GRISEL and ... Admission Data Admit Date/Time: 04/07/21 14:10 Attending Provider: Leonel Wright Admit Provider: Tyler Maddox Primary Care Provider: Rafiq Boucher III Other Providers: Vishal Herman Other Interventions: Discharge Summary Assessment (RN) Last Done: 04/09/21 14:11 Coding Level of Care Code D/C Day Management >30 mins Diagnoses Nausea & vomiting R11.2 Murry esophagus K22.70 Hypertension I10 Depression F32.9
== END 2021-04-09 17:30 | disposition home or self-care (01) ==
LOC: 3N 10:52 → ED 10:52 → SUATTDRO 14:10 → 3N 16:03

== ENCOUNTER 2021-04-13 09:44 | Inpatient (IN) ==
[2021-04-13] MEDS ORDERED: ONDANSETRON INJ 2 MG/ML 2 ML VIAL IV STA ×2 (10:08→13:52)
[2021-04-13] MEDS ORDERED: PROMETHAZINE 12.5 MG/50.5 ML BAG IV STA (10:08)
[2021-04-13] MEDS ORDERED: SODIUM CHLORIDE 0.9% 1000ML 2,000 ML IV ONE (10:08)
[2021-04-13] MEDS ORDERED: FAMOTIDINE 20MG IV PUSH 20 MG/5 ML SYR IV STA (10:14)
--- NOTE | 2021-04-13 10:14 | Emergency Department Note ---
Impression & Plan Abdominal pain, High serum chloride, Murry esophagus ED Provider Note NAME: ERENDIRA OTT AGE: 55 SEX: M : 1965 ARRIVES VIA: Walk-In INFORMANT: Patient ED PROVIDER(S): Usman Melendez DO CHIEF COMPLAINT: Abdominal pain HPI: Patient is a 55-year-old male who presents to the ER for nausea and vomiting. Symptoms started earlier this morning. Patient has epigastric abdominal pain. Patient denies any headache or change in vision. No chest pain or shortness of breath. He has had this about 5 times this year. Patient notes that he has a history of esophageal and prostate cancer. Patient denies any dysuria, urgency, or frequency. No other exacerbating or remitting factors. He is vomiting yellow fluid. ROS: See above HPI for pertinent positives & negatives. A total of 10 systems reviewed and were otherwise negative. PAST MEDICAL HISTORY:See Below PAST SURGICAL HISTORY:See Below FAMILY HISTORY:See Below SOCIAL HISTORY:See Below HOME MEDICATIONS:See Below ALLERGIES:See Below VITALS:See Below PHYSICAL EXAMINATION: GENERAL: Sitting up in bed, alert, vomiting bile, mild distress EYE EXAM: normal conjunctiva. OROPHARYNX: no exudate, no erythema, lips, buccal mucosa, and tongue normal and mucous membranes are moist NECK: supple, no nuchal rigidity, no adenopathy, non-tender LUNGS: Clear to auscultation. Normal chest wall mechanics HEART: no murmurs, S1 normal and S2 normal ABDOMEN: abdomen soft, non-tender, normo-active bowel sounds, no masses, no rebound or guarding. BACK: Back is symmetrical on inspection and there is no deformity, no midline tenderness, no CVA tenderness. SKIN: no rashes and no bruising UPPER EXTREMITIES: upper extremities are grossly normal. LOWER EXTREMITIES: No pitting edema. NEURO EXAM: Normal sensorium, cranial nerves II-XII grossly intact, normal speech, no gross weakness of arms, no gross weakness of legs. MEDICAL DECISION MAKING: Patient is a 55-year-old male who presents ER for nausea vomiting unable to keep anything down. He has had this multiple times before in the past. He was just recently admitted and discharged for this as well. IV was established blood was taken. Labs show no significant leukocytosis or anemia. Along with LFTs bilirubin and lipase is unremarkable. UA with small amount of ketones. Covid was negative. CT abdomen pelvis shows questionable renal carcinoma versus normal cyst. Patient was given multiple doses of Zofran, Reglan, Phenergan as well as fluids. Still had persistent vomiting in the ER. Was also given a GI cocktail. Discussed with hospitalist after 5 hours and still having intermittent vomiting not tolerating oral. Observation Status: Indication: Vomiting Patient with no pertinent family history, was seen first at 1045 hrs and was necessary in order to determine medical stability and avoid unnecessary admission. Upon reevaluation, 6 hours of observation revealed that the patient should be admitted. Disposition date and time 04/13/21 1545. Triage Nursing notes reviewed. Limited review of prior medical records performed Vital Signs: reviewed and remarkable for HTN Differential diagnosis: Differential diagnoses includes but is not limited to gastritis, peptic ulcer disease, GERD, gallbladder disease, pancreatitis, small bowel obstruction, acute coronary syndrome, pericarditis, ischemic bowel, irritable bowel disease, irritable bowel syndrome, appendicitis, diverticulitis, malignancy, hernia, urinary tract infection, torsion, /ectopic (if female), perforation, trauma, infectious. ER treatment provided: See below Diagnostics interpreted by me: ECG: none Cardiac Monitoring: An order was placed for continuous cardiac monitoring. The monitor shows a rate of 80 with sinus rhythm. Laboratory studies: As stated above and show below. Imaging studies: CT abdomen pelvis is unremarkable with exception of the above findings Consultation(s): This is Dr. Luis F Leong for further evaluation Procedures: none Critical Care: None Past Med/Surg History Medical History Abdominal pain Recently admitted for abdominal pain- pain improved since discharged on 01/03/21 Abnormal weight loss 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 dx'ed with esophageal cancer in 2007 EGD in 10/2020 did show Barretts with esophagitis and ulcers - put on PPI Candidal esophagitis S/p treatment after EGD Esophageal cancer 2007 s/p chemo and radiation Fissure, anal Pt unsure if still present- getting repeat colonoscopy in the future Fracture of multiple thoracic vertebrae 25 years ago Gastro-esophageal reflux disease with esophagitis Uncontrolled Hepatitis C [id number] Hypertension Lumbago Restless leg No current issues 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 Withdrawal from opioids Was on increased opioids in the past secondary to chronic back pain- weaned off pain medications- was taking herbal supplement ([place])= now using Suboxone to taper off supplement Surgical History History of anesthesia reaction pt states he woke up during 2 EGD procedures and during shoulder sx History of colonoscopy History of cystoscopy History of esophagectomy 2007 History of esophagogastroduodenoscopy (EGD) recent 10/31/2020 History of repair of rotator cuff right and left shoulder History of right knee surgery meniscectomy Hx laparoscopic cholecystectomy Status post surgery neck surgery with hardware Family History Father Hypertension Myocardial infarction Coronary heart disease Mother Cancer Skin and Lung Brother Hypertension Other No family history of adverse response to anesthesia Denies family history of Ovarian cancer Prostate cancer Breast cancer Colorectal cancer Social History Smoking Status: Current every day smoker Tobacco Type: Cigarettes Years Smoked: 10; Second Hand Exposure: No; Hx Alcohol Use: No Hx Substance Use: No Preferred Language: Bengali Communication Ability: Effective Visual Impairment: No Limitations Hearing Ability: Normal Spreader Operator Required: No Beliefs That Will Affect Care: None marital status: Current Living Situation: Spouse current occupational status: employed 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 Feels Safe at Home: Yes caffeine: Yes Dental Care, Regularly: Yes Physical Activity Frequency: Daily Seatbelt Use: always Sunscreen Use: No Assistive Devices: None Allergies Allergies Allergy/AdvReac Type Severity Reaction Status Date / Time No Known Allergies Allergy Verified 04/13/21 10:51 Home Meds Home Medications Medication Instructions Recorded Confirmed buprenorphine-naloxone 1 tab SUBLINGUAL BID 01/09/21 04/13/21 Dexilant 60 mg PO DIRECTED 01/11/21 04/13/21 fluoride (sodium) [PreviDent 5000 1 applic DENTAL HS 04/13/21 04/13/21 Booster Plus] Previous Rx's Medication Instructions Recorded citalopram 20 mg tablet 20 mg PO QAM #90 tab 08/22/20 lisinopril 20 mg tablet 20 mg PO QAM #30 tab 09/25/20 famotidine [Pepcid] 20 mg PO BID #60 tab 01/03/21 pantoprazole 40 mg PO BID #180 tab 01/03/21 gabapentin 300 mg capsule 300 mg PO TID PRN #90 cap 02/05/21 sucralfate 1 g PO QID #400 ml 04/09/21 clonidine HCl 0.1 mg tablet 0.1 mg PO BID PRN #60 tab 04/10/21 sodium sulf 1.479 gram-potas See Rx Instructions PO .COMPLEX 04/13/21 chloride 0.188 gram-magnesium sulf #24 tab tablet Results & Data (ED) Vital Signs Vital Signs - 24 hr 04/13/21 09:51 04/13/21 10:04 04/13/21 11:57 Temperature 36.8 C Temperature Source Temporal Artery Scan Pulse Rate 72 Pulse Rate [Right Finger] 84 Pulse Rhythm Regular Pulse Rhythm [Right Finger] Regular Pulse Strength Normal Pulse Strength [Right Finger] Normal Respiratory Rate 20 16 Respiratory Effort / Characteristics Non-Labored Spontaneous Non-Labored Spontaneous Respiratory Depth Normal Normal Respiratory Pattern Regular Regular Blood Pressure 183/91 H Blood Pressure [Right Arm] 158/94 H Blood Pressure Mean 121 Blood Pressure Mean [Right Arm] 115 Blood Pressure Position Sitting Blood Pressure Position [Right Arm] Lying Pulse Oximetry 99 99 98 Oxygen Delivery Method Room Air Room Air Room Air Sepsis Recent Fever Within 48 Hours No Sepsis New/Unexplained Change in Mental Status No Sepsis Action Taken by Nursing No Action Required 04/13/21 13:20 Temperature Temperature Source Pulse Rate Pulse Rate [Right Finger] 82 Pulse Rhythm Pulse Rhythm [Right Finger] Regular Pulse Strength Pulse Strength [Right Finger] Normal Respiratory Rate 16 Respiratory Effort / Characteristics Non-Labored Spontaneous Respiratory Depth Normal Respiratory Pattern Regular Blood Pressure Blood Pressure [Right Arm] 163/95 H Blood Pressure Mean Blood Pressure Mean [Right Arm] 117 Blood Pressure Position Blood Pressure Position [Right Arm] Lying Pulse Oximetry 97 Oxygen Delivery Method Room Air Sepsis Recent Fever Within 48 Hours Sepsis New/Unexplained Change in Mental Status Sepsis Action Taken by Nursing Laboratory Data Result diagrams: 04/13/21 10:21 04/13/21 10:21 Lab Results 04/13/21 04/13/21 04/13/21 Range/Units 10:21 10:21 12:05 WBC 6.91 (4.8-10.8) K/uL RBC 4.77 (4.7-6.1) M/uL Hgb 13.1 L (14.0-18.0) g/dL Hct 39.7 L (42-52) % MCV 83.2 (80-100) fL MCH 27.5 (25-34) pg MCHC 33.0 (32-36) g/dL RDW Std Deviation 44.3 (36.4-46.3) fL RDW Coeff of Dorothy 14.5 (11.5-14.5) % Plt Count 319 (130-400) K/uL MPV 10.9 H (7.4-10.4) fL Immature Gran % (Auto) 0.1 % Neut % (Auto) 80.0 % Lymph % (Auto) 12.2 % Kimble % (Auto) 6.8 % Eos % (Auto) 0.3 % Baso % (Auto) 0.6 % Neut # (Auto) 5.53 (1.4-6.5) K/uL Lymph # (Auto) 0.84 L (1.2-3.4) K/uL Kimble # (Auto) 0.47 (0.11-0.59) K/uL Eos # (Auto) 0.02 (0-0.5) K/uL Baso # (Auto) 0.04 (0-0.2) K/uL Immature Gran # (Auto) 0.01 (0.00-0.02) K/uL Sodium 139 (136-145) mmol/L Potassium 3.7 (3.5-5.1) mmol/L Chloride 107 (98-107) mmol/L Carbon Dioxide 26 (21-32) mmol/L Anion Gap 7.0 (3-11) BUN 10 (7-18) mg/dl Creatinine 0.99 (0.6-1.4) mg/dl Est Cr Clr Drug Dosing 81.7 ml/min Est GFR ( Amer) 97.6 ml/min Est GFR (Non-Af Amer) 84.2 ml/min BUN/Creatinine Ratio 10.3 (10-20) Glucose 109 H (70-99) mg/dl Calcium 9.4 (8.5-10.1) mg/dl Total Bilirubin 0.6 (0.2-1) mg/dl AST 15 (15-37) U/L ALT 21 (12-78) U/L Alkaline Phosphatase 106 (45-117) U/L Total Protein 7.8 (6.4-8.2) gm/dl Albumin 4.2 (3.4-5.0) gm/dl Globulin 3.6 (2.5-4.0) gm/dl Albumin/Globulin Ratio 1.2 (0.9-2) Lipase 167 (73-393) U/L Urine Color Yellow Urine Appearance Clear (Clear) Urine pH 8.5 H (4.5-7.5) Ur Specific Dudley 1.028 (1.000-1.030) Urine Protein Negative (Negative) Urine Glucose (UA) Negative (Negative) Urine Ketones 1+ H (Negative) Urine Blood Negative (Negative) Urine Nitrite Negative (Negative) Urine Bilirubin Negative (Negative) Urine Urobilinogen Negative (Negative) Ur Leukocyte Esterase Negative (Negative) COVID-19 Eval Order 04/13/21 Range/Units 14:20 WBC (4.8-10.8) K/uL RBC (4.7-6.1) M/uL Hgb (14.0-18.0) g/dL Hct (42-52) % MCV (80-100) fL MCH (25-34) pg MCHC (32-36) g/dL RDW Std Deviation (36.4-46.3) fL RDW Coeff of Dorothy (11.5-14.5) % Plt Count (130-400) K/uL MPV (7.4-10.4) fL Immature Gran % (Auto) % Neut % (Auto) % Lymph % (Auto) % Kimble % (Auto) % Eos % (Auto) % Baso % (Auto) % Neut # (Auto) (1.4-6.5) K/uL Lymph # (Auto) (1.2-3.4) K/uL Kimble # (Auto) (0.11-0.59) K/uL Eos # (Auto) (0-0.5) K/uL Baso # (Auto) (0-0.2) K/uL Immature Gran # (Auto) (0.00-0.02) K/uL Sodium (136-145) mmol/L Potassium (3.5-5.1) mmol/L Chloride (98-107) mmol/L Carbon Dioxide (21-32) mmol/L Anion Gap (3-11) BUN (7-18) mg/dl Creatinine (0.6-1.4) mg/dl Est Cr Clr Drug Dosing ml/min Est GFR ( Amer) ml/min Est GFR (Non-Af Amer) ml/min BUN/Creatinine Ratio (10-20) Glucose (70-99) mg/dl Calcium (8.5-10.1) mg/dl Total Bilirubin (0.2-1) mg/dl AST (15-37) U/L ALT (12-78) U/L Alkaline Phosphatase (45-117) U/L Total Protein (6.4-8.2) gm/dl Albumin (3.4-5.0) gm/dl Globulin (2.5-4.0) gm/dl Albumin/Globulin Ratio (0.9-2) Lipase (73-393) U/L Urine Color Urine Appearance (Clear) Urine pH (4.5-7.5) Ur Specific Dudley (1.000-1.030) Urine Protein (Negative) Urine Glucose (UA) (Negative) Urine Ketones (Negative) Urine Blood (Negative) Urine Nitrite (Negative) Urine Bilirubin (Negative) Urine Urobilinogen (Negative) Ur Leukocyte Esterase (Negative) COVID-19 Eval Order Covid19 at [facility] Administered Medications Discontinued Medications Al Hydrox/Mg Hydrox/Simethicone (Gi Cocktail Ed Use) 1 dose PO ONE ONE Stop: 04/13/21 13:07 Last Admin: 04/13/21 13:19 Dose: 1 dose Documented by: [id number] Sodium Chloride (Nss 1000ml) 2,000 mls @ 999 mls/hr IV .Q2H1M ONE Stop: 04/13/21 12:08 Last Infusion: 04/13/21 12:07 Dose: 0 mls/hr Documented by: [id number] Admin: 04/13/21 10:24 Dose: 999 mls/hr Documented by: [id number] Promethazine HCl (Phenergan) 12.5 mg in 50.5 mls @ 202 mls/hr IV NOW STA Stop: 04/13/21 10:22 Last Infusion: 04/13/21 10:40 Dose: 0 mls/hr Documented by: [id number] Admin: 04/13/21 10:24 Dose: 202 mls/hr Documented by: [id number] Famotidine (Pepcid 20mg Iv Push) 20 mg in 5 mls @ 2.5 mls/min IV NOW STA Stop: 04/13/21 10:15 Last Admin: 04/13/21 10:24 Dose: 2.5 mls/min Documented by: [id number] Ioversol (Optiray 320 100ml) 94 ml IV ONCE ONE Stop: 04/13/21 11:38 Last Admin: 04/13/21 11:37 Dose: 94 ml Documented by: [id number] Metoclopramide HCl (Metoclopramide Hcl Inj 5 Mg/Ml 2 Ml Vial) 10 mg IV NOW STA Stop: 04/13/21 13:07 Last Admin: 04/13/21 13:19 Dose: 10 mg Documented by: [id number] Ondansetron HCl (Ondansetron Inj 2 Mg/Ml 2 Ml Vial) 4 mg IV NOW STA Stop: 04/13/21 10:09 Last Admin: 04/13/21 10:24 Dose: 4 mg Documented by: [id number] Ondansetron HCl (Ondansetron Inj 2 Mg/Ml 2 Ml Vial) 4 mg IV NOW STA Stop: 04/13/21 13:53 Last Admin: 04/13/21 14:24 Dose: 4 mg Documented by: [id number] Imaging Data Radiologist's Impression: Abdomen/Pelvis CT 04/13/21 11:13 CT OF THE ABDOMEN AND PELVIS WITH CONTRAST CLINICAL HISTORY: Abdominal pain, nausea and vomiting. History of esophageal cancer. COMPARISON STUDY: CT of the abdomen and pelvis July 07, 2020. Prostate MRI October 19, 2020. Abdominal series October 27, 2020. TECHNIQUE: Following IV administration of 94 mL of Optiray, axial images of the abdomen and pelvis were obtained from the lung bases to the proximal femurs. Images were reviewed in the axial, sagittal, and coronal planes. IV contrast was administered without complication. Automated exposure control was utilized for the study. A dose lowering technique was utilized adhering to the principles of ALARA. CT DOSE: 409.06 mGycm FINDINGS: Lung bases are unremarkable. Postoperative findings consistent with esophagectomy with gastric pull-up are partially imaged. Minimal infiltration adjacent to the stomach is noted. The stomach may be hyperemic although this is accentuated given underdistention. There is no biliary ductal dilatation status post cholecystectomy. Suspected focal fat within the medial segment of the left hepatic lobe is noted. The spleen and adrenal glands as well as the pancreas are normal. There is no peripancreatic infiltration. There is no hydronephrosis. Note is made of an intermediate attenuation lobulated lesion within the lower pole of the left kidney that measures 4 cm. This contains a calcified septation. There is no evidence for a bowel obstruction. Evaluation of the abdomen and pelvis is difficult given a paucity of fat. There is mild bladder wall thickening with mild adjacent infiltration. Prostate is surgically absent. The appendix is normal. No suspicious osseous lesions are present. No acute fracture is identified within visualized skeletal structures. There is a moderate amount stool within the colon. No lymphadenopathy is present. IMPRESSION: 1. 4 cm intermediate attenuation lesion within the lower pole of the left kidney which contains a calcified septation. This is suspicious for a renal neoplasm however a complex cyst cannot be excluded. Nonemergent renal protocol MRI is recommended. 2. Status post esophagectomy with gastric pull-through, partially imaged on this exam. Findings raising the possibility of gastritis. 3. No bowel obstruction. Moderate amount of stool within the colon. Difficult study to interpret given paucity of fat. 4. Distended bladder with bladder wall thickening and adjacent infiltration which could be correlated with urinalysis to exclude cystitis. ACT 112: Negative or not required by law. Electronically signed by: Christopher Beverly M.D. 04/13/2021 12:02 PM Discharge Plan Visit Data Chief Complaint: Illness Stated Complaint: ABDOMINAL PAIN/VOMITING ED Provider: Usman Melendez Discharge Problem: Abdominal pain, High serum chloride, Murry esophagus Forms Stand Alone Forms: [facility] Prescriptions Prescriptions: No Action citalopram 20 mg tablet 20 mg PO QAM Qty: 90 RF: 3 lisinopril 20 mg tablet 20 mg PO QAM Qty: 30 RF: 11 gabapentin 300 mg capsule 300 mg PO TID PRN (Reason: Pain) Qty: 90 RF: 5 clonidine HCl 0.1 mg tablet 0.1 mg PO BID PRN (Reason: Anxiety) Qty: 60 RF: 1 Sutab 1.479-0.188 gram tablet See Rx Instructions PO .COMPLEX Qty: 24 RF: 0 buprenorphine-naloxone 8-2 mg Tablet, Sublingual 1 tab SUBLINGUAL BID RF: 0 Dexilant 60 mg capsule,biphase delayed releas 60 mg PO DIRECTED RF: 0 sucralfate 100 mg/mL Suspension 1 g PO QID Qty: 400 RF: 0 famotidine [Pepcid] 40 mg tablet 20 mg PO BID Qty: 60 RF: 3 pantoprazole 40 mg tablet,delayed release (DR/EC) 40 mg PO BID Qty: 180 RF: 3 fluoride (sodium) [PreviDent 5000 Booster Plus] 1.1 % paste 1 applic dental HS RF: 0 Discharge Problem: Abdominal pain Qualifiers: Abdominal location: unspecified location Qualified Code(s): R10.9 - Unspecified abdominal pain Murry esophagus Qualifiers: Murry's esophagus type: without dysplasia Qualified Code(s): K22.70 - Murry's esophagus without dysplasia
[2021-04-13 10:29] LABS: Basophils # (auto) 0.04 K/uL (0-0.2); Basophils % (auto) 0.6 %; Eosinophils # (auto) 0.02 K/uL (0-0.5); Eosinophils % (auto) 0.3 %; Hematocrit (blood only) 39.7 % (42-52); Hemoglobin 13.1 g/dL (14.0-18.0); Immature Granulocytes # (auto) 0.01 K/uL (0.00-0.02); Immature Granulocytes % (auto) 0.1 %; Lymphocytes # (auto) 0.84 K/uL (1.2-3.4); Lymphocytes % (auto) 12.2 %; Mean Corpuscular Hemoglobin 27.5 pg (25-34); Mean Corpuscular Volume 83.2 fL (80-100); Mean Platelet Volume 10.9 fL (7.4-10.4); Monocytes # (auto) 0.47 K/uL (0.11-0.59); Monocytes % (auto) 6.8 %; Neutrophils # (auto) 5.53 K/uL (1.4-6.5); Platelet Count 319 K/uL (130-400); RDW Coefficient of Variation 14.5 % (11.5-14.5); RDW Standard Deviation 44.3 fL (36.4-46.3); Red Blood Count 4.77 M/uL (4.7-6.1); White Blood Count 6.91 K/uL (4.8-10.8)
[2021-04-13 10:50] LABS: Albumin Level 4.2 gm/dl (3.4-5.0); BUN Creatinine Ratio 10.3 (10-20); Calcium 9.4 mg/dl (8.5-10.1); Creatinine Clr Calc Pharmacy 81.7 ml/min; Est GFR (African American) 97.6 ml/min; Est GFR (Non-African American) 84.2 ml/min; Potassium 3.7 mmol/L (3.5-5.1)
[2021-04-13 10:53] LABS: Albumin Globulin Ratio 1.2 (0.9-2); Bilirubin,Total 0.6 mg/dl (0.2-1); Globulin 3.6 gm/dl (2.5-4.0); Total Protein 7.8 gm/dl (6.4-8.2)
[2021-04-13] MEDS ORDERED: OPTIRAY 320 100ml IV ONE (11:37)
--- NOTE | 2021-04-13 12:03 | CT Scan Report ---
CT OF THE ABDOMEN AND PELVIS WITH CONTRAST CLINICAL HISTORY: Abdominal pain, nausea and vomiting. History of esophageal cancer. COMPARISON STUDY: CT of the abdomen and pelvis July 07, 2020. Prostate MRI October 19, 2020. A bdominal series October 27, 2020. TECHNIQUE: Following IV administration of 94 mL of Optiray, axial images of the abdomen and pelvis we re obtained from the lung bases to the proximal femurs. Images were reviewed in the axial, sagittal, and coronal planes. IV contrast was administered without complication. Automated exposure control wa s utilized for the study. A dose lowering technique was utilized adhering to the principles of ALARA . CT DOSE: 409.06 mGycm FINDINGS: Lung bases are unremarkable. Postoperative findings consistent with esophagectomy with kelly cody pull-up are partially imaged. Minimal infiltration adjacent to the stomach is noted. The stomach may be hyperemic although this is accentuated given underdistention. There is no biliary ductal dilat ation status post cholecystectomy. Suspected focal fat within the medial segment of the left hepatic lobe is noted. The spleen and adrenal glands as well as the pancreas are normal. There is no peripanc reatic infiltration. There is no hydronephrosis. Note is made of an intermediate attenuation lobulate d lesion within the lower pole of the left kidney that measures 4 cm. This contains a calcified septa tion. There is no evidence for a bowel obstruction. Evaluation of the abdomen and pelvis is difficult given a paucity of fat. There is mild bladder wall thickening with mild adjacent infiltration. Prost ate is surgically absent. The appendix is normal. No suspicious osseous lesions are present. No acute fracture is identified within visualized skeletal structures. There is a moderate amount stool withi n the colon. No lymphadenopathy is present. IMPRESSION: 1. 4 cm intermediate attenuation lesion within the lower pole of the left kidney which contains a verito cified septation. This is suspicious for a renal neoplasm however a complex cyst cannot be excluded. Nonemergent renal protocol MRI is recommended. 2. Status post esophagectomy with gastric pull-through, partially imaged on this exam. Findings raisi ng the possibility of gastritis. 3. No bowel obstruction. Moderate amount of stool within the colon. Difficult study to interpret give n paucity of fat. 4. Distended bladder with bladder wall thickening and adjacent infiltration which could be correlated with urinalysis to exclude cystitis. ACT 112: Negative or not required by law. Electronically signed by: Christopher Beverly M.D. 04/13/2021 12:02 PM
[2021-04-13 12:30] LABS: Appearance Urine Clear (Clear); Bilirubin Urine Negative (Negative); Blood Urine Negative (Negative); Color Urine Yellow; Glucose Urine UA Negative (Negative); Ketones Urine 1+ (Negative); Leukocyte Esterase Urine Negative (Negative); Nitrite Urine Negative (Negative); Protein Urine Negative (Negative); Specific Gravity Urine 1.028 (1.000-1.030); Urobilinogen Urine Negative (Negative); pH Urine 8.5 (4.5-7.5)
[2021-04-13] MEDS ORDERED: GI COCKTAIL ED USE PO ONE (13:06)
[2021-04-13] MEDS ORDERED: METOCLOPRAMIDE HCL INJ 5 MG/ML 2 ML VIAL IV STA (13:06)
--- NOTE | 2021-04-13 15:19 | History & Physical Report ---
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 - Patient will be admitted for symptom control - NPO- once vomiting subsides or improves, can add back clears, then to bland diet - Protonix 40 mg IV BID- can change back to his Dexilant when able - Continue Famotidine - Continue Carafate - Nausea vomiting- Zofran, Metoclopramide - Nystatin swish and spit for symptom control- can change to regular nystatin in AM (2) Nausea & vomiting: As above- associated with chills this morning - CXR to evaluate for acute process or air outside trachea/pulmonary spaces with frequent wretching - Infectious labs and UA negative at this time (3) Chills: Without fever - Without leukocytosis - Follow CXR in the morning - [place] - if picture becomes more clear- consider tick borne process as well (4) Hypertension: continue Lisinopril (5) Prostate cancer: S/p robotic assisted laparoscopic assisted prostatectomy and pelvic lymph node dissection - No acute LUTS at this time (6) Opioid abuse: Prior history with chronic back pain - continue Suboxone (7) Renal mass: Incidentally noted on CT scan- previous from 2019 reviewed- 4 cm intermediate attenuation lesion within the lower pole of the left kidney which contains a calcified septation. This is suspicious for a renal neoplasm however a complex cyst cannot be excluded. Nonemergent renal protocol MRI is recommended. - No change in size - MRI of renals not performed- consider if remaining in house through weekend- obtaining History of Present Illness Primary Care Provider: Raifq Boucher MD This is a 55-year-old male with past medical history of previous esophageal cancer treated with esophagectomy with pull through, chronic esophagitis with barretts, recent prostatectomy for prostate cancer. Recently admitted and discharged for vomiting, abdominal pain and nausea. He was discharged on the 09 of April. He was treated with IV PPI, Nystatin swish and spit and slowly advance his diet. He presents today complaining of nausea vomiting as well as abdominal pain that was refractory to Ondansetron 4mg x2, Promethazine 12.5mg, Reglan 10mg, Pepcid 20mg IV and Aluminum hydroxy/magnesium hydroxy/simethicone cocktail. He is groggy on exam and is unable to give any specific information. He had spaghetti last night that he kept down and has not thrown anything up until this morning. He also states that he has felt cold and then hot this morning prior to his vomiting. He tried to go to work and couldn't so he came here. He is unable to verbalize whether he has painful symptoms with urination or defecation. "I'm not sure, I don't know." Patient will be admitted for symptom control- follow infectious markers with is chills. However now there is no appearing abnormality. Urine is unremarkable. He is closely followed with GI and is pending a gastric emptying study. -Moderately severe esophagitis with no bleeding was found. Biopsies were - taken with a cold forceps for histology. Estimated blood loss: none. - The entire examined stomach was normal. Biopsies were taken with a cold - forceps for Helicobacter pylori testing. Estimated blood loss: none. - The duodenal bulb and second portion of the duodenum were normal. last COLO 12/17- with non bleeding hemorrhoids. Allergies Allergy/AdvReac Type Severity Reaction Status Date / Time No Known Allergies Allergy Verified 04/20/21 11:29 Home Medications Medication Instructions Recorded Confirmed Type citalopram 20 mg tablet 20 mg PO QAM #90 tab 08/22/20 04/20/21 Rx lisinopril 20 mg tablet 20 mg PO QAM #30 tab 09/25/20 04/20/21 Rx famotidine [Pepcid] 20 mg PO BID #60 tab 01/03/21 04/20/21 Rx pantoprazole 40 mg PO BID #180 tab 01/03/21 04/20/21 Rx buprenorphine-naloxone 1 tab SUBLINGUAL BID 01/09/21 04/20/21 History gabapentin 300 mg capsule 300 mg PO TID PRN #90 cap 02/05/21 04/20/21 Rx clonidine HCl 0.1 mg tablet 0.1 mg PO BID PRN #60 tab 04/10/21 04/20/21 Rx fluoride (sodium) [PreviDent 5000 1 applic DENTAL HS 04/13/21 04/20/21 History Booster Plus] sodium sulf 1.479 gram-potas See Rx Instructions PO .COMPLEX 04/13/21 04/20/21 Rx chloride 0.188 gram-magnesium sulf #24 tab tablet metoclopramide HCl 10 mg PO Q6H PRN #30 tab 04/16/21 04/20/21 Rx sucralfate 1 g PO ACHS #400 ml 04/16/21 04/20/21 Rx Past Med/Surg History Medical History Abdominal pain Abnormal weight loss Murry esophagus Candidal esophagitis Esophageal cancer Fissure, anal Fracture of multiple thoracic vertebrae Gastro-esophageal reflux disease with esophagitis Hepatitis C Hypertension Lumbago Restless leg Traumatic disc herniation of cervical spine Withdrawal from opioids Surgical History History of anesthesia reaction History of colonoscopy History of cystoscopy History of esophagectomy History of esophagogastroduodenoscopy (EGD) History of repair of rotator cuff History of right knee surgery Hx laparoscopic cholecystectomy Status post surgery Family History Father Hypertension Myocardial infarction Coronary heart disease Mother Cancer Brother Hypertension Other No family history of adverse response to anesthesia Denies family history of Ovarian cancer Prostate cancer Breast cancer Colorectal cancer Social History Smoking Status: Never smoker Tobacco Type: Cigarettes Years Smoked: 10; Second Hand Exposure: No; Do You Dip or Chew Tobacco: No; Hx Alcohol Use: No Hx Substance Use: No Preferred Language: Luxembourgish Communication Ability: Effective Visual Impairment: No Limitations Hearing Ability: Normal Licensed Architect Required: No Beliefs That Will Affect Care: None marital status: Current Living Situation: Spouse current occupational status: employed 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 Feels Safe at Home: Yes Safety Concerns: Feels Safe At This Time Childhood Exposure to Second-Hand Smoke: Yes caffeine: Yes Dental Care, Regularly: Yes Physical Activity Frequency: Daily Seatbelt Use: always Sunscreen Use: No Assistive Devices: None Review of Systems Review of Systems: REVIEW OF SYSTEMS: Constitutional: (+) sweats or chills No fever, Eyes: No diplopia, no worsening or blurred vision ENT: normal hearing, no trouble swallowing Respiratory: No cough, sputum, dyspnea at rest or on exertion Cardiovascular: No chest pain, tightness or palpitations Abdomen: (+) pain, nausea, vomiting, diarrhea or constipation Musculoskeletal: No joint pain, calf pain, swelling Neurologic: No weakness, numbness/tingling, or balance problems Psychiatric: No anxiety or depression Skin: No rash or itch Physical Exam Physical Exam: PHYSICAL EXAM: General: awake, alert, no apparent distress Head: Normocephalic, atraumatic ENT: PERRL, EOMI, no pharyngeal exudate, mucous membranes moist Neuro: AAO x 3, speech clear and appropriate, strength intact bilaterally 5/5, sensation intact and equal all extremities and dermatomes, no pronator drift Chest: equal rise and fall of the chest, no accessory muscle use, no heaves or thrills, Clear to auscultation, on room air, Cardiac: Regular rate and rhythm, telemetry reviewed, skin warm dry, cap refill <3 seconds, peripheral pulses +2 no JVD, no murmur, no edema GI: NABS x 4 quadrants, soft, nontender to palpation, no rebound, guarding or tenderness, vomitus is yellow biliary in nature, no food particles, no blood : Spontaneously voiding, no pain, no CVA tenderness, Extremities: Normal inspection, no peripheral edema or erythema, calfs nontender to palpation Psych: Normal mood and affect Skin: no rash or erythema Results & Data Results & Data ([facility]) Vital Signs (Past 12 Hours) Vital Signs Temp Pulse Pulse Resp BP BP Pulse Ox 04/13/21 13:20 82 16 163/95 H 97 04/13/21 11:57 84 16 158/94 H 98 04/13/21 10:04 99 04/13/21 09:51 36.8 C 72 20 183/91 H 99 Laboratory Results Abnormal lab results 04/13/21 04/13/21 04/13/21 Range/Units 10:21 10:21 12:05 Hgb 13.1 L (14.0-18.0) g/dL Hct 39.7 L (42-52) % MPV 10.9 H (7.4-10.4) fL Lymph # (Auto) 0.84 L (1.2-3.4) K/uL Glucose 109 H (70-99) mg/dl Urine pH 8.5 H (4.5-7.5) Urine Ketones 1+ H (Negative) Diagnostic Findings Abdomen/Pelvis CT 04/13/21 11:13 CT OF THE ABDOMEN AND PELVIS WITH CONTRAST CLINICAL HISTORY: Abdominal pain, nausea and vomiting. History of esophageal cancer. COMPARISON STUDY: CT of the abdomen and pelvis July 07, 2020. Prostate MRI October 19, 2020. Abdominal series October 27, 2020. TECHNIQUE: Following IV administration of 94 mL of Optiray, axial images of the abdomen and pelvis were obtained from the lung bases to the proximal femurs. Images were reviewed in the axial, sagittal, and coronal planes. IV contrast was administered without complication. Automated exposure control was utilized for the study. A dose lowering technique was utilized adhering to the principles of ALARA. CT DOSE: 409.06 mGycm FINDINGS: Lung bases are unremarkable. Postoperative findings consistent with esophagectomy with gastric pull-up are partially imaged. Minimal infiltration adjacent to the stomach is noted. The stomach may be hyperemic although this is accentuated given underdistention. There is no biliary ductal dilatation status post cholecystectomy. Suspected focal fat within the medial segment of the left hepatic lobe is noted. The spleen and adrenal glands as well as the pancreas are normal. There is no peripancreatic infiltration. There is no hydronephrosis. Note is made of an intermediate attenuation lobulated lesion within the lower pole of the left kidney that measures 4 cm. This contains a calcified septation. There is no evidence for a bowel obstruction. Evaluation of the abdomen and pe lvis is difficult given a paucity of fat. There is mild bladder wall thickening with mild adjacent infiltration. Prostate is surgically absent. The appendix is normal. No suspicious osseous lesions are present. No acute fracture is identified within visualized skeletal structures. There is a moderate amount stool within the colon. No lymphadenopathy is present. IMPRESSION: 1. 4 cm intermediate attenuation lesion within the lower pole of the left kidney which contains a calcified septation. This is suspicious for a renal neoplasm however a complex cyst cannot be excluded. Nonemergent renal protocol MRI is recommended. 2. Status post esophagectomy with gastric pull-through, partially imaged on this exam. Findings raising the possibility of gastritis. 3. No bowel obstruction. Moderate amount of stool within the colon. Difficult study to interpret given paucity of fat. 4. Distended bladder with bladder wall thickening and adjacent infiltration which could be correlated with urinalysis to exclude cystitis. Electronically signed by: Christopher Beverly M.D. 04/13/2021 12:02 PM CXR PENDING Medications Administered Discontinued Medications Al Hydrox/Mg Hydrox/Simethicone (Gi Cocktail Ed Use) 1 dose PO ONE ONE Stop: 04/13/21 13:07 Last Admin: 04/13/21 13:19 Dose: 1 dose Documented by: [id number] Sodium Chloride (Nss 1000ml) 2,000 mls @ 999 mls/hr IV .Q2H1M ONE Stop: 04/13/21 12:08 Last Infusion: 04/13/21 12:07 Dose: 0 mls/hr Documented by: [id number] Admin: 04/13/21 10:24 Dose: 999 mls/hr Documented by: [id number] Promethazine HCl (Phenergan) 12.5 mg in 50.5 mls @ 202 mls/hr IV NOW STA Stop: 04/13/21 10:22 Last Infusion: 04/13/21 10:40 Dose: 0 mls/hr Documented by: [id number] Admin: 04/13/21 10:24 Dose: 202 mls/hr Documented by: [id number] Famotidine (Pepcid 20mg Iv Push) 20 mg in 5 mls @ 2.5 mls/min IV NOW STA Stop: 04/13/21 10:15 Last Admin: 04/13/21 10:24 Dose: 2.5 mls/min Documented by: [id number] Ioversol (Optiray 320 100ml) 94 ml IV ONCE ONE Stop: 04/13/21 11:38 Last Admin: 04/13/21 11:37 Dose: 94 ml Documented by: [id number] Metoclopramide HCl (Metoclopramide Hcl Inj 5 Mg/Ml 2 Ml Vial) 10 mg IV NOW STA Stop: 04/13/21 13:07 Last Admin: 04/13/21 13:19 Dose: 10 mg Documented by: [id number] Ondansetron HCl (Ondansetron Inj 2 Mg/Ml 2 Ml Vial) 4 mg IV NOW STA Stop: 04/13/21 10:09 Last Admin: 04/13/21 10:24 Dose: 4 mg Documented by: [id number] Ondansetron HCl (Ondansetron Inj 2 Mg/Ml 2 Ml Vial) 4 mg IV NOW STA Stop: 04/13/21 13:53 Last Admin: 04/13/21 14:24 Dose: 4 mg Documented by: [id number] ECG Additional Comments: Normal sinus rhythm Voltage criteria for left ventricular hypertrophy Abnormal ECG Code Status & VTE Plan Code Status CODE: FULL VTE: SCD's, Lovenox 30mg qd VTE Prophylaxis Plan VTE Prophylaxis will be ordered: Yes Supervising Physician Co-Signing Physician Notes Attending Attestation - Pt seen/examined, chart reviewed, care plan d/w NAOMI Flynn. I agree w/ the murrieta components of his documentation. 55yo male - h/o Murry's & esophageal cancer s/p esophagectomy and gastric pull-through along with chronic pain syndrome on suboxone - presenting with intractable N/V/abd discomfort. Symptoms refractory to numerous meds given in ER. Potential upper GI irritants - excessive coffee, recent red sauce/spaghetti, etc. PMH, PSH, allergies, meds, sochx, famhx - reviewed VSS, no fever gen - looks sickly, uncomfortable, tired-appearing mouth - MM dry, no thrush heart - RRR, s1 s2 lungs - CTA b/l abd - soft, mildly tender high epigastric region, BS+, ND, no HSM ext - no edema labs, imaging reviewed A/P: 1. h/o esophageal ca s/p esophagectomy with gastric pull-through 2. intractable/refractory N/V - etiology?? esophagitis? suboxone withdrawal? viral GE? other? agree with IV PPI, carafate GI consultation IV fluids 3. chronic pain syndrome - cont suboxone 4. left renal mass - worrisome for RCC; will need urological f/u for this janis following discharge Micky Leong MD PG Care Time/CCT Total # of Minutes Spent Total Time Spent with Patient: Total time spent is greater than 50% in coordination of care (as documented) at patient's floor/unit and/or counseling patient: Coding Level of Care Code 72077 Initial Inpt Care Lvl 2 Diagnoses Murry esophagus K22.719 Murry's esophagus type: with dysplasia of unspecified degree Nausea & vomiting R11.14 Vomiting type: bilious vomiting Chills R68.83 Hypertension I10 Hypertension type: unspecified Prostate cancer C61 Opioid abuse F11.10 Renal mass N28.89 (1) Murry esophagus Murry's esophagus type: with dysplasia of unspecified degree Qualified Code(s): K22.719 - Murry's esophagus with dysplasia, unspecified (2) Nausea & vomiting Vomiting type: bilious vomiting Qualified Code(s): R11.14 - Bilious vomiting (3) Hypertension Hypertension type: unspecified Qualified Code(s): I10 - Essential (primary) hypertension
--- NOTE | 2021-04-13 15:47 | XRay Report ---
XR chest 1V portable HISTORY: evaluate for infectious process COMPARISON: Chest 04/07/2021. FINDINGS: Cervical spinal fusion hardware is again noted. The heart is normal in size. Mild diffuse i nterstitial thickening, unchanged. No pneumothorax. No pleural effusions. No new focal lung consolida tions. No evidence for pulmonary edema. Surgical clips within the upper abdomen are again noted. Slig ht elevation of the right hemidiaphragm. Surgical clips also noted within the mediastinum. IMPRESSION: Mild interstitial thickening which is likely chronic. Otherwise, no focal lung consolidations to sugg est pneumonia. ACT 112: Negative or not required by law. Electronically signed by: Shree Murguia M.D. 04/13/2021 3:46 PM
[2021-04-13] MEDS ORDERED: PANTOprazole 40 MG in SYRINGE 0 ML IV ONE (16:45)
[2021-04-13] MEDS: METOCLOPRAMIDE HCL INJ 5 MG/ML 2 ML VIAL IV PRN (19:29)
[2021-04-13] MEDS: SUCRALFATE 1 GM/10 ML UDC PO SCH (20:10)
[2021-04-13] MEDS: GABAPENTIN 300 MG CAP PO PRN (20:10)
[2021-04-13] MEDS: FAMOTIDINE 20 MG TAB PO SCH (20:11)
[2021-04-13] MEDS: ENOXAPARIN INJ 30 MG/0.3 ML SYR SQ SCH (21:23)
[2021-04-13] MEDS: BUPRENORPHINE/NALOXONE 8/2 MG TAB SL SCH (21:23)
[2021-04-13] MEDS: PANTOprazole 40 MG in SYRINGE 0 ML IV SCH (21:24)
[2021-04-14] MEDS: BUPRENORPHINE/NALOXONE 8/2 MG TAB SL SCH ×2 (08:09→21:08)
[2021-04-14] MEDS: cloNIDine HCL 0.1 MG TAB PO PRN ×2 (08:09→21:09)
[2021-04-14] MEDS: METOCLOPRAMIDE HCL INJ 5 MG/ML 2 ML VIAL IV PRN (08:09)
[2021-04-14] MEDS: PANTOprazole 40 MG in SYRINGE 0 ML IV SCH ×2 (08:10→21:09)
[2021-04-14] MEDS: SUCRALFATE 1 GM/10 ML UDC PO SCH ×4 (08:10→21:09)
[2021-04-14] MEDS: FAMOTIDINE 20 MG TAB PO SCH ×2 (08:10→21:09)
[2021-04-14] MEDS: GABAPENTIN 300 MG CAP PO PRN ×2 (08:10→21:10)
[2021-04-14] MEDS: lisinopril 20 MG TAB PO SCH (08:10)
[2021-04-14] MEDS: CITALOPRAM 20 MG TAB PO SCH (08:10)
--- NOTE | 2021-04-14 09:24 | Hospitalist Progress Note ---
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 -Previous evaluated by gastroenterology we will reconsult them in case an endoscopy is warranted given his history of previous malignancy and surgery. - Protonix 40 mg IV BID- can change back to his Dexilant when able - Continue Famotidine - Continue Carafate - Nausea vomiting- Zofran, Metoclopramide Ct abdomen and pelvis 04/13/21 IMPRESSION: 1. 4 cm intermediate attenuation lesion within the lower pole of the left kidney which contains a calcified septation. This is suspicious for a renal neoplasm however a complex cyst cannot be excluded. Nonemergent renal protocol MRI is recommended. 2. Status post esophagectomy with gastric pull-through, partially imaged on this exam. Findings raising the possibility of gastritis. 3. No bowel obstruction. Moderate amount of stool within the colon. Difficult study to interpret given paucity of fat. 4. Distended bladder with bladder wall thickening and adjacent infiltration which could be correlated with urinalysis to exclude cystitis (2) Nausea & vomiting: As above- associated with chills this morning - CXR to evaluate for acute process or air outside trachea/pulmonary spaces with frequent wretching - Infectious labs and UA negative at this time (3) Chills: Without fever - Without leukocytosis - Follow CXR in the morning - [place] - if picture becomes more clear- consider tick borne process as well (4) Hypertension: continue Lisinopril (5) Prostate cancer: S/p robotic assisted laparoscopic assisted prostatectomy and pelvic lymph node dissection - No acute LUTS at this time (6) Opioid abuse: Prior history with chronic back pain - continue Suboxone (7) Renal mass: Incidentally noted on CT scan- previous from 2019 reviewed- 4 cm intermediate attenuation lesion within the lower pole of the left kidney which contains a calcified septation. This is suspicious for a renal neoplasm however a complex cyst cannot be excluded. Nonemergent renal protocol MRI is recommended. This is [address] scan of June 2020 - No change in size - MRI of kidneys performed, urine cytology sent urology consultation undertaken Admission and Anticipated Discharge Date Admission Date: April 13, 2021 Subjective Patient with returns with recurrence of symptoms. He was seen by gastroenterology was knows him well during his last stay of the recommended medical management. Patient states that he was unable to keep food or liquids down had intense esophageal type pain in his substernal subxiphoid area who presented to the hospital. Incidentally it was also noted he had a newfound 4 cm left lower renal pole mass. Patient is already had esophageal cancer and prostate cancer and this is very concerning for the patient. An MRI of the mass confirms its presentation there Patient symptoms have improved with medical management at this time however we are not progressing increasing diet until he is evaluated by gastroenterology. Review of Systems Review of Systems: Mild to moderate distress and fatigue no headache, no visual changes no speech or swallowing issues no chest pain, pressure or palpitations no shortness of breath, cough or wheezes Epigastric abdominal pain, resolution of nausea or vomiting, bowel movement 1 day prior to admission no dysuria, hematuria or frequency no focal joint pain or swelling no back pain, CVA tenderness or radicular pain no bruising, bleeding or rashes no focal signs of weakness or numbness or altered sensation no complaints of anxiety or depression.. Physical Exam Physical Exam: The patient appeared thin with a BMI of 20 likely underweight for her size Vital signs as documented. Head exam is normocephalic atraumatic Neck is without JVD, thyromegaly, or carotid bruits. Lungs are clear to auscultation, no focal loss of breath sounds Cardiac exam, Rhythm is regular.. No murmurs, rubs or gallops. Abdominal exam reveals normal bowel sounds, soft mild epigastric tenderness Extremities are nonedematous and both pedal pulses are present Neurologic exam is alert and oriented, no focal loss of strength or sensation Skin is without bruises or rashes Psychologically is without concerns for anxiety or depression Results & Data Results & Data ([facility]) Vital Signs (Past 12 Hours) Vital Signs Temp Pulse Resp BP BP Pulse Ox 04/14/21 08:25 97.7 F 72 16 149/89 H 97 04/13/21 22:34 99.1 F 85 19 109/66 95 PG Care Time/CCT Total # of Minutes Spent Total Time Spent with Patient: Total time spent is greater than 50% in coordination of care (as documented) at patient's floor/unit and/or counseling patient: Coding Level of Care Code 96222 Subseq Hosp Care Lvl 3 Diagnoses Murry esophagus K22.719 Murry's esophagus type: with dysplasia of unspecified degree Nausea & vomiting R11.14 Vomiting type: bilious vomiting Chills R68.83 Hypertension I10 Hypertension type: unspecified Prostate cancer C61 Opioid abuse F11.10 Renal mass N28.89 (1) Murry esophagus Murry's esophagus type: with dysplasia of unspecified degree Qualified Code(s): K22.719 - Murry's esophagus with dysplasia, unspecified (2) Nausea & vomiting Vomiting type: bilious vomiting Qualified Code(s): R11.14 - Bilious vomiting (3) Hypertension Hypertension type: unspecified Qualified Code(s): I10 - Essential (primary) hypertension
[2021-04-14 09:41] LABS: Basophils # (auto) 0.04 K/uL (0-0.2); Basophils % (auto) 0.6 %; Eosinophils # (auto) 0.04 K/uL (0-0.5); Eosinophils % (auto) 0.6 %; Hematocrit (blood only) 36.1 % (42-52); Hemoglobin 11.7 g/dL (14.0-18.0); Immature Granulocytes # (auto) 0.01 K/uL (0.00-0.02); Immature Granulocytes % (auto) 0.1 %; Lymphocytes # (auto) 1.47 K/uL (1.2-3.4); Lymphocytes % (auto) 20.8 %; Mean Corpuscular Hemoglobin 26.9 pg (25-34); Mean Corpuscular Hgb Conc 32.4 g/dL (32-36); Mean Platelet Volume 10.8 fL (7.4-10.4); Monocytes # (auto) 0.98 K/uL (0.11-0.59); Monocytes % (auto) 13.8 %; Neutrophils # (auto) 4.54 K/uL (1.4-6.5); Neutrophils % (auto) 64.1 %; Platelet Count 278 K/uL (130-400); RDW Coefficient of Variation 14.6 % (11.5-14.5); RDW Standard Deviation 44.4 fL (36.4-46.3); Red Blood Count 4.35 M/uL (4.7-6.1); White Blood Count 7.08 K/uL (4.8-10.8)
[2021-04-14 10:09] LABS: BUN Creatinine Ratio 17.9 (10-20); Calcium 8.7 mg/dl (8.5-10.1); Creatinine Clr Calc Pharmacy 104.4 ml/min; Est GFR (African American) 117.4 ml/min; Est GFR (Non-African American) 101.3 ml/min; Magnesium 2.1 mg/dl (1.8-2.4)
[2021-04-14] MEDS ORDERED: GADOBUTROL 65ML VIAL IV ONE (14:21)
[2021-04-14] MEDS: LACTATED RINGER'S 1,000 ML IV SCH (17:18)
[2021-04-14] MEDS: ENOXAPARIN INJ 30 MG/0.3 ML SYR SQ SCH (21:09)
--- NOTE | 2021-04-14 23:15 | Urology Consultation ---
Date of Consultation April 14, 2021 Assessment & Plan (1) Renal mass: The etiology of patient's renal mass has not been ascertained. Patient is scheduled for a abdominal MRI to further characterize this lesion. Once MRI results are available further recommendations will be made History of Present Illness Reason for Consultation: Renal mass on the left side Attending Physician: Leonel Wright MD History of Present Illness This is a 55-year-old male who presented to [facility] emergency department yesterday secondary to nausea vomiting wheals abdominal pain. Noteworthy mention the patient had a recent admission in March of this year secondary to nausea vomiting and abdominal pain. He was treated with nystatin swish and swallow along with a proton pump inhibitor. Because of his ongoing symptoms he represented to the emergency department and has subsequently been admitted to the hospital. This admission the patient has had labs and imaging which independently reviewed. He had a CT scan of his abdomen and pelvis that showed a 4 cm lesion in the lower left pole of the kidney which was new when compared to prior CT scan from 2019. Chest x-ray did not show any masses or focal lung consolidations. Labs consisted of a CBC were white blood cell count and platelet count were noted to be within normal range. His hemoglobin was noted to be 11.7. Chemistry profile showed sodium and potassium were normal. His BUN and creatinine were also noted be normal. Urology consultation has been requested due to this new renal mass that has been identified. I did question the patient on symptoms pertinent to this. He does note that he has had some left-sided flank pain that comes and goes in an unpredictable fashion. He says that this feels like an ache and does not radiate anywhere else. He said the pain is minor and he did not seek medical attention for this. He says he has lost approximately 40 pounds in the past year. He denies any dysuria or hematuria. He also denies any abdominal fullness. To the best of his knowledge he was not aware that he had a renal mass. At the time of my interview the patient was resting comfortably in bed in no distress Allergies Allergy/AdvReac Type Severity Reaction Status Date / Time No Known Allergies Allergy Verified 04/13/21 10:51 Home Medications Medication Instructions Recorded Confirmed Type citalopram 20 mg tablet 20 mg PO QAM #90 tab 08/22/20 04/13/21 Rx lisinopril 20 mg tablet 20 mg PO QAM #30 tab 09/25/20 04/13/21 Rx famotidine [Pepcid] 20 mg PO BID #60 tab 01/03/21 04/13/21 Rx pantoprazole 40 mg PO BID #180 tab 01/03/21 04/13/21 Rx buprenorphine-naloxone 1 tab SUBLINGUAL BID 01/09/21 04/13/21 History Dexilant 60 mg PO DIRECTED 01/11/21 04/13/21 History gabapentin 300 mg capsule 300 mg PO TID PRN #90 cap 02/05/21 04/13/21 Rx sucralfate 1 g PO QID #400 ml 04/09/21 04/13/21 Rx clonidine HCl 0.1 mg tablet 0.1 mg PO BID PRN #60 tab 04/10/21 04/13/21 Rx fluoride (sodium) [PreviDent 5000 1 applic DENTAL HS 04/13/21 04/13/21 History Booster Plus] sodium sulf 1.479 gram-potas See Rx Instructions PO .COMPLEX 04/13/21 Rx chloride 0.188 gram-magnesium sulf #24 tab tablet Patient History Medical History Abdominal pain Recently admitted for abdominal pain- pain improved since discharged on 01/03/21 Abnormal weight loss 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 dx'ed with esophageal cancer in 2007 EGD in 10/2020 did show Barretts with esophagitis and ulcers - put on PPI Candidal esophagitis S/p treatment after EGD Esophageal cancer 2007 s/p chemo and radiation Fissure, anal Pt unsure if still present- getting repeat colonoscopy in the future Fracture of multiple thoracic vertebrae 25 years ago Gastro-esophageal reflux disease with esophagitis Uncontrolled Hepatitis C [id number] Hypertension Lumbago Restless leg No current issues 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 Withdrawal from opioids Was on increased opioids in the past secondary to chronic back pain- weaned off pain medications- was taking herbal supplement (Kraton)= now using Suboxone to taper off supplement Surgical History History of anesthesia reaction pt states he woke up during 2 EGD procedures and during shoulder sx History of colonoscopy History of cystoscopy History of esophagectomy 2007 History of esophagogastroduodenoscopy (EGD) recent 10/31/2020 History of repair of rotator cuff right and left shoulder History of right knee surgery meniscectomy Hx laparoscopic cholecystectomy Status post surgery neck surgery with hardware Family History Father Hypertension Myocardial infarction Coronary heart disease Mother Cancer Skin and Lung Brother Hypertension Other No family history of adverse response to anesthesia Denies family history of Ovarian cancer Prostate cancer Breast cancer Colorectal cancer Social History Smoking Status: Never smoker Tobacco Type: Cigarettes Years Smoked: 10; Second Hand Exposure: No; Hx Alcohol Use: No Hx Substance Use: No Preferred Language: Arabic Communication Ability: Effective Visual Impairment: No Limitations Hearing Ability: Normal Vending Route Servicer Required: No Beliefs That Will Affect Care: None marital status: Current Living Situation: Spouse current occupational status: employed 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 Other Information That Helps Us Care for You: No Feels Safe at Home: Yes Safety Concerns: Feels Safe At This Time caffeine: Yes Dental Care, Regularly: Yes Physical Activity Frequency: Daily Seatbelt Use: always Sunscreen Use: No Assistive Devices: None Review of Systems Constitutional: no fever and no chills Eyes: no diplopia Ear, Nose, Mouth, Throat: no ear pain Respiratory: no cough and no dyspnea Cardiovascular: no chest pain Gastrointestinal: + abdominal pain, + nausea and + vomiting Genitourinary: + flank pain; no dysuria and no hematuria Musculoskeletal: no back pain Integumentary: no rash Neurologic: no localized weakness Physical Exam Constitutional: well developed and well nourished; no acute distress Eyes: no conjunctival abnormality ENMT: Ears: no hearing impairment Neck: trachea midline Respiratory: normal respiratory effort, lungs clear to auscultation Cardiovascular: Rate/Rhythm: regular rate and regular rhythm Gastrointestinal (Abdomen): Abdomen is soft and nondistended. There is no rebound tenderness or guarding. There are no palpable masses. Musculoskeletal: No calf tenderness Skin: no rashes, warm and dry Neurologic: moves all extremities Psychiatric: A+Ox3, euthymic affect Genitourinary: no CVA tenderness Results & Data ([facility]) Vital Signs (Past 12 Hours) Vital Signs Temp Pulse Resp BP BP Pulse Ox 04/14/21 22:34 37.1 C 64 19 149/90 H 95 04/14/21 16:51 36.7 C 69 16 137/88 95 PG Care Time/CCT Total # of Minutes Spent Total Time Spent with Patient: Total time spent is greater than 50% in coordination of care (as documented) at patient's floor/unit and/or counseling patient: Coding Level of Care Code 96797 Inpt Consult Level 5 Diagnoses Renal mass N28.89
[2021-04-14] MEDS ORDERED: MELATONIN 3 MG TAB PO PRN (23:39)
[2021-04-15] MEDS: LACTATED RINGER'S 1,000 ML IV SCH ×3 (02:29→23:47)
[2021-04-15] MEDS ORDERED: CALCIUM CARBONATE 500 MG CHEWABLE TAB PO PRN (02:44)
[2021-04-15] MEDS ORDERED: CALCIUM CARBONATE 500 MG CHEWABLE TAB ONE (03:11)
[2021-04-15 06:50] LABS: Basophils # (auto) 0.03 K/uL (0-0.2); Basophils % (auto) 0.6 %; Eosinophils # (auto) 0.24 K/uL (0-0.5); Eosinophils % (auto) 4.9 %; Hematocrit (blood only) 33.7 % (42-52); Hemoglobin 10.9 g/dL (14.0-18.0); Lymphocytes # (auto) 1.83 K/uL (1.2-3.4); Lymphocytes % (auto) 37.3 %; Mean Corpuscular Hemoglobin 27.2 pg (25-34); Mean Corpuscular Hgb Conc 32.3 g/dL (32-36); Mean Platelet Volume 10.5 fL (7.4-10.4); Monocytes # (auto) 0.78 K/uL (0.11-0.59); Monocytes % (auto) 15.9 %; Neutrophils # (auto) 2.03 K/uL (1.4-6.5); Neutrophils % (auto) 41.3 %; Platelet Count 239 K/uL (130-400); RDW Coefficient of Variation 14.4 % (11.5-14.5); RDW Standard Deviation 44.5 fL (36.4-46.3); Red Blood Count 4.01 M/uL (4.7-6.1); White Blood Count 4.91 K/uL (4.8-10.8)
[2021-04-15 07:20] LABS: BUN Creatinine Ratio 15.9 (10-20); Calcium 8.6 mg/dl (8.5-10.1); Creatinine Clr Calc Pharmacy 118.4 ml/min; Est GFR (African American) 123.6 ml/min; Est GFR (Non-African American) 106.7 ml/min
[2021-04-15] MEDS: FAMOTIDINE 20 MG TAB PO SCH ×2 (08:26→20:42)
[2021-04-15] MEDS: GABAPENTIN 300 MG CAP PO PRN (08:26)
[2021-04-15] MEDS: lisinopril 20 MG TAB PO SCH (08:26)
[2021-04-15] MEDS: SUCRALFATE 1 GM/10 ML UDC PO SCH ×2 (08:26→12:46)
[2021-04-15] MEDS: PANTOprazole 40 MG in SYRINGE 0 ML IV SCH ×2 (08:26→20:41)
[2021-04-15] MEDS: CITALOPRAM 20 MG TAB PO SCH (08:26)
[2021-04-15] MEDS: cloNIDine HCL 0.1 MG TAB PO PRN (08:27)
[2021-04-15] MEDS: BUPRENORPHINE/NALOXONE 8/2 MG TAB SL SCH ×2 (08:32→20:42)
--- NOTE | 2021-04-15 10:34 | Urology Progress Note ---
Date of Service April 15, 2021 Assessment & Plan (1) Renal mass: 4 cm left lower pole renal mass Had an MRI this morningno official read but it appears to me that this is very consistent with a solid renal mass implying a high likelihood of cancer I have discussed the finding with him and discussed appropriate management in the form of partial nephrectomy I also discussed that his prior esophagectomy and prostatectomy may both complicate his procedure I explained that there is no pressing need to intervene super urgently but we can complete his current upper GI and colonoscopy before moving forward with any kidney treatments We have discussed the potential role of biopsy, particularly given his 2 other malignancies We also discussed his predisposition to malignancyI have suggested he will likely have to become committed to the relationship with an oncologist and may benefit from genetic evaluation and close monitoring in the future now given 3 potential distinct malignancies in a short period of time we will arrange outpt f/u to finalize plans for treatment - please call if any other issues during this hospitalization (2) Prostate CA: Admission and Anticipated Discharge Date Admission Date: April 13, 2021 Subjective Unfortunate 55-year-old gentleman he has had prior esophageal cancer with a gastric pull-through as well as prostate cancer status post robotic prostatectomy in December Unfortunately he also seems to have a 4 cm left lower pole renal mass He is currently admitted with esophagitis and esophageal type pain? Likely has a work-up coming with gastroenterology Denies any flank pain No hematuria Urinary control reasonable after his prostatectomy Physical Exam Constitutional: well developed and well nourished Respiratory: no respiratory distress Cardiovascular: Extremities: no pedal edema Gastrointestinal (Abdomen): Inspection/Auscultation: abdomen normal to inspection Results & Data ([facility]) Vital Signs (Past 12 Hours) Vital Signs Temp Pulse Resp BP Pulse Ox 04/15/21 06:21 36.8 C 62 20 128/78 96 04/14/21 22:34 37.1 C 64 19 149/90 H 95 PG Care Time/CCT Total # of Minutes Spent Total Time Spent with Patient: Total time spent is greater than 50% in coordination of care (as documented) at patient's floor/unit and/or counseling patient: Coding Level of Care Code 78499 Subseq Hosp Care Lvl 3 Diagnoses Renal mass N28.89 Prostate CA C61
--- NOTE | 2021-04-15 11:38 | Gastrointestinal Consultation ---
Date of Consultation April 15, 2021 Assessment & Plan (1) Nausea & vomiting: Unclear etiology, likely related to post surgical changes and an element of gastroparesis. Given persistence of symptoms and recurrent admission, would suggest EGD for further evaluation, plan for tomorrow with . Offered the patient to do bowel prep today and have EGD/colonoscopy done tomorrow as inpatient but he declined, he only wants the EGD done tomorrow and wants to reschedule colonoscopy for few months till his nausea and vomiting resolves. Continue Antiemetics, consider a dose of Emend if needed. If EGD is normal would consider Gastric emptying scan and trial of Prokinetic. Avoid Opioids. Laxatives for constipation. History of Present Illness Attending Physician: Micky Rao MD 55 years old male patient with Hx of esophageal cancer 10 years ago s/p resection with gastric pull up, in remission since then, recently found with Prostate cancer and now also has a 4 cm Kidney mass, GI consulted for recurrent nausea and vomiting. He was just discharged few days ago for the same issues, said he did not vomit food but it was just bile. He is on Opioids for pain and has chronic constipation and bloating, early satiety. Recent colonoscopy was poor prep, planned for repeat colonoscopy this Friday. Last EGD was 6 months ago showed esophagitis. Allergies Allergy/AdvReac Type Severity Reaction Status Date / Time No Known Allergies Allergy Verified 04/13/21 10:51 Home Medications Medication Instructions Recorded Confirmed Type citalopram 20 mg tablet 20 mg PO QAM #90 tab 08/22/20 04/13/21 Rx lisinopril 20 mg tablet 20 mg PO QAM #30 tab 09/25/20 04/13/21 Rx famotidine [Pepcid] 20 mg PO BID #60 tab 01/03/21 04/13/21 Rx pantoprazole 40 mg PO BID #180 tab 01/03/21 04/13/21 Rx buprenorphine-naloxone 1 tab SUBLINGUAL BID 01/09/21 04/13/21 History Dexilant 60 mg PO DIRECTED 01/11/21 04/13/21 History gabapentin 300 mg capsule 300 mg PO TID PRN #90 cap 02/05/21 04/13/21 Rx sucralfate 1 g PO QID #400 ml 04/09/21 04/13/21 Rx clonidine HCl 0.1 mg tablet 0.1 mg PO BID PRN #60 tab 04/10/21 04/13/21 Rx fluoride (sodium) [PreviDent 5000 1 applic DENTAL HS 04/13/21 04/13/21 History Booster Plus] sodium sulf 1.479 gram-potas See Rx Instructions PO .COMPLEX 04/13/21 Rx chloride 0.188 gram-magnesium sulf #24 tab tablet Patient History Medical History Abdominal pain Recently admitted for abdominal pain- pain improved since discharged on 01/03/21 Abnormal weight loss 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 dx'ed with esophageal cancer in 2007 EGD in 10/2020 did show Barretts with esophagitis and ulcers - put on PPI Candidal esophagitis S/p treatment after EGD Esophageal cancer 2007 s/p chemo and radiation Fissure, anal Pt unsure if still present- getting repeat colonoscopy in the future Fracture of multiple thoracic vertebrae 25 years ago Gastro-esophageal reflux disease with esophagitis Uncontrolled Hepatitis C [id number] Hypertension Lumbago Restless leg No current issues 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 Withdrawal from opioids Was on increased opioids in the past secondary to chronic back pain- weaned off pain medications- was taking herbal supplement (Kraton)= now using Suboxone to taper off supplement Surgical History History of anesthesia reaction pt states he woke up during 2 EGD procedures and during shoulder sx History of colonoscopy History of cystoscopy History of esophagectomy 2007 History of esophagogastroduodenoscopy (EGD) recent 10/31/2020 History of repair of rotator cuff right and left shoulder History of right knee surgery meniscectomy Hx laparoscopic cholecystectomy Status post surgery neck surgery with hardware Family History Father Hypertension Myocardial infarction Coronary heart disease Mother Cancer Skin and Lung Brother Hypertension Other No family history of adverse response to anesthesia Denies family history of Ovarian cancer Prostate cancer Breast cancer Colorectal cancer Social History Smoking Status: Never smoker Tobacco Type: Cigarettes Years Smoked: 10; Second Hand Exposure: No; Hx Alcohol Use: No Hx Substance Use: No Preferred Language: Amharic Communication Ability: Effective Visual Impairment: No Limitations Hearing Ability: Normal Aquatics Instructor Required: No Beliefs That Will Affect Care: None marital status: Current Living Situation: Spouse current occupational status: employed 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 Other Information That Helps Us Care for You: No Feels Safe at Home: Yes Safety Concerns: Feels Safe At This Time caffeine: Yes Dental Care, Regularly: Yes Physical Activity Frequency: Daily Seatbelt Use: always Sunscreen Use: No Assistive Devices: None Review of Systems Constitutional: no fever, no chills, no fatigue and no weight loss Eyes: no eye pain and no worsening vision Ear, Nose, Mouth, Throat: no tinnitus, no dizziness, no nasal discharge and no epistaxis Respiratory: no cough, no dyspnea, no dyspnea on exertion and no wheezing Cardiovascular: no chest pain, no orthopnea, no palpitations and no edema Gastrointestinal: as per Subjective / HPI Musculoskeletal: no stiffness and no myalgia Neurologic: no localized weakness, no paralysis, no tremor(s) and no headache(s) Endocrine: no polydipsia and no polyuria Hematologic / Lymphatic: no easy bleeding and no night sweats Physical Exam Constitutional: + well hydrated, cooperative and comfortable Eyes: PERRL, conjunctivae normal, anicteric sclerae ENMT: external ear and nose normal, oropharynx normal Neck: normal visual inspection and trachea midline Respiratory: normal respiratory effort, lungs clear to auscultation Auscultation: no wheezes Cardiovascular: RRR, no murmur, no edema Gastrointestinal (Abdomen): normal bowel sounds, soft, nontender, no hepatosplenomegaly Musculoskeletal: no cyanosis or clubbing, extremities motor strength 5/5 Skin: no rashes, warm and dry Neurologic: awake; no focal motor deficits Motor/Sensory: no tremor Results & Data ([facility]) Vital Signs (Past 12 Hours) Vital Signs Temp Pulse Resp BP Pulse Ox 04/15/21 06:21 36.8 C 62 20 128/78 96 Laboratory Results Laboratory Results - last 24 hr 04/15/21 04/15/21 06:07 06:07 WBC 4.91 RBC 4.01 L Hgb 10.9 L Hct 33.7 L MCV 84.0 MCH 27.2 MCHC 32.3 RDW Std Deviation 44.5 RDW Coeff of Dorothy 14.4 Plt Count 239 MPV 10.5 H Immature Gran % (Auto) 0.0 Neut % (Auto) 41.3 Lymph % (Auto) 37.3 [place] % (Auto) 15.9 Eos % (Auto) 4.9 Baso % (Auto) 0.6 Neut # (Auto) 2.03 Lymph # (Auto) 1.83 [place] # (Auto) 0.78 H Eos # (Auto) 0.24 Baso # (Auto) 0.03 Immature Gran # (Auto) 0.00 Sodium 140 Potassium 4.0 Chloride 107 Carbon Dioxide 29 Anion Gap 4.0 BUN 11 Creatinine 0.67 Est Cr Clr Drug Dosing 118.4 Est GFR ( Amer) 123.6 Est GFR (Non-Af Amer) 106.7 BUN/Creatinine Ratio 15.9 Glucose 88 Calcium 8.6 Magnesium 2.0 (1) Nausea & vomiting Vomiting type: bilious vomiting Qualified Code(s): R11.14 - Bilious vomiting
--- NOTE | 2021-04-15 17:20 | Hospitalist Progress Note ---
Date of Service April 15, 2021 Assessment & Plan (1) Murry esophagus: Patient with chronic esophagitis, previous esophagectomy for cancer with gastric pull-through, as well and nausea and vomiting acute/chronic - Patient's caffeine intake - 1 pot coffee a day likely exacerbating symptoms. - NPO after midnight for EGD tomorrow per GI - Protonix 40 mg IV BID- can change back to his Dexilant when able - Continue Famotidine - Hold Carafate in light of needing EGD - Nausea vomiting- Zofran, Metoclopramide Ct abdomen and pelvis 04/13/21 IMPRESSION: 1. 4 cm intermediate attenuation lesion within the lower pole of the left kidney which contains a calcified septation. This is suspicious for a renal neoplasm however a complex cyst cannot be excluded. Nonemergent renal protocol MRI is recommended. 2. Status post esophagectomy with gastric pull-through, partially imaged on this exam. Findings raising the possibility of gastritis. 3. No bowel obstruction. Moderate amount of stool within the colon. Difficult study to interpret given paucity of fat. 4. Distended bladder with bladder wall thickening and adjacent infiltration which could be correlated with urinalysis to exclude cystitis. (2) Nausea & vomiting: As above- associated with chills this morning - CXR - not suspicious for PNA - Infectious labs and UA negative at this time Suspect secondary to esophagitis given intermittent recurring nature. Highly recommended to stop drinking coffee. (3) Chills: Without fever - Without leukocytosis - Follow CXR in the morning - [place] - if picture becomes more clear- consider tick borne process as well (4) Hypertension: continue Lisinopril (5) Prostate cancer: S/p robotic assisted laparoscopic assisted prostatectomy and pelvic lymph node dissection - No acute LUTS at this time (6) Opioid abuse: Prior history with chronic back pain - continue Suboxone (7) Renal mass: Incidentally noted on CT scan - 4 cm intermediate attenuation lesion within the lower pole of the left kidney which contains a calcified septation. This is suspicious for a renal neoplasm however a complex cyst cannot be excluded. - Appreciate urology consult. MRI read pending but suspect will need partial nephrectomy as outpatient. Admission and Anticipated Discharge Date Admission Date: April 13, 2021 Subjective Patient drinking coffee already today despite continued food getting stuck sensation and odynophagia. Also drinking sprite soda. Reports burning sensation continued but improved. Previous episodes get better with hospital management but then tend to recur and now happening more frequently. Main symptom of nausea (again improved since admission). More chronically having fatigue and generalized weakness getting worse over the last 6-12 months. Review of Systems Review of Systems: All systems reviewed & are unremarkable except as noted in HPI & below Physical Exam Constitutional: well developed and + thin; + not well nourished and no acute distress Eyes: + anicteric sclerae; normal pupil size ENMT: external ear and nose normal, oropharynx normal Respiratory: normal respiratory effort, lungs clear to auscultation Cardiovascular: RRR, no murmur, no edema Gastrointestinal (Abdomen): normal bowel sounds, soft, nontender, no hepatosplenomegaly Musculoskeletal: no cyanosis or clubbing, extremities motor strength 5/5 Skin: no rashes, warm and dry Neurologic: moves all extremities and awake; not confused Psychiatric: A+Ox3, euthymic affect Results & Data Results & Data ([facility]) Vital Signs (Past 12 Hours) Vital Signs Temp Pulse Resp BP Pulse Ox 04/15/21 06:21 36.8 C 62 20 128/78 96 PG Care Time/CCT Total # of Minutes Spent Total Time Spent with Patient: Total time spent is greater than 50% in coordination of care (as documented) at patient's floor/unit and/or counseling patient: Coding Level of Care Code 09070 Subseq Hosp Care Lvl 2 Diagnoses Murry esophagus K22.719 Murry's esophagus type: with dysplasia of unspecified degree Nausea & vomiting R11.14 Vomiting type: bilious vomiting Chills R68.83 Hypertension I10 Hypertension type: unspecified Prostate cancer C61 Opioid abuse F11.10 Renal mass N28.89 (1) Murry esophagus Murry's esophagus type: with dysplasia of unspecified degree Qualified Code(s): K22.719 - Murry's esophagus with dysplasia, unspecified (2) Nausea & vomiting Vomiting type: bilious vomiting Qualified Code(s): R11.14 - Bilious vomiting (3) Hypertension Hypertension type: unspecified Qualified Code(s): I10 - Essential (primary) hypertension
[2021-04-15] MEDS: ENOXAPARIN INJ 30 MG/0.3 ML SYR SQ SCH (20:42)
[2021-04-16 06:53] LABS: Basophils # (auto) 0.04 K/uL (0-0.2); Basophils % (auto) 0.7 %; Eosinophils # (auto) 0.26 K/uL (0-0.5); Eosinophils % (auto) 4.9 %; Hematocrit (blood only) 33.2 % (42-52); Hemoglobin 10.9 g/dL (14.0-18.0); Immature Granulocytes # (auto) 0.01 K/uL (0.00-0.02); Immature Granulocytes % (auto) 0.2 %; Lymphocytes # (auto) 1.93 K/uL (1.2-3.4); Mean Corpuscular Hemoglobin 27.3 pg (25-34); Mean Corpuscular Hgb Conc 32.8 g/dL (32-36); Mean Corpuscular Volume 83.2 fL (80-100); Mean Platelet Volume 10.3 fL (7.4-10.4); Monocytes # (auto) 0.81 K/uL (0.11-0.59); Monocytes % (auto) 15.1 %; Neutrophils # (auto) 2.31 K/uL (1.4-6.5); Neutrophils % (auto) 43.1 %; Platelet Count 247 K/uL (130-400); RDW Coefficient of Variation 14.5 % (11.5-14.5); RDW Standard Deviation 44.4 fL (36.4-46.3); Red Blood Count 3.99 M/uL (4.7-6.1); White Blood Count 5.36 K/uL (4.8-10.8)
[2021-04-16 07:25] LABS: BUN Creatinine Ratio 16.1 (10-20); Creatinine Clr Calc Pharmacy 110.2 ml/min; Est GFR (Non-African American) 103.6 ml/min; Potassium 3.9 mmol/L (3.5-5.1)
[2021-04-16] MEDS: LACTATED RINGER'S 1,000 ML IV SCH (08:09)
[2021-04-16] MEDS: BUPRENORPHINE/NALOXONE 8/2 MG TAB SL SCH (08:53)
[2021-04-16] MEDS: PANTOprazole 40 MG in SYRINGE 0 ML IV SCH (08:54)
--- NOTE | 2021-04-16 10:14 | History & Physical Bridge Note ---
Date of Service April 16, 2021 History & Physical Bridge Note I have examined the patient, reviewed the History & Physical and in the interval since the performance of the History & Physical I have noted the following changes of clinical significance: no changes noted. Keep NPO and proceed with EGD today with Dr. Herman. Supervising Physician Co-Signing Physician Notes Agree with SHAWANDA Pardo as above Abd: Soft, NT, ND, +BS Continue current therapy Proceed with EGD now
[2021-04-16] MEDS ORDERED: LIDOCAINE 2% 2 ML VIAL/AMP(20MG/ML) INFIL ONE (10:59)
[2021-04-16] MEDS ORDERED: PROPOFOL IV EMULSION 10 MG/ML 20 ML VIAL IV ONE (10:59)
--- NOTE | 2021-04-16 11:15 | Magnetic Resonance Report ---
MR abdomen wo/w con CLINICAL HISTORY: eval renal mass TECHNIQUE: Imaging was performed prior to and following IV contrast injection. COMPARISON STUDY: October 17, 2006 FINDINGS: There is 4.1 x 4.1 cm lesion on axial dimension which measures 3.2 cm in craniocaudal dimension lesio n which shows isointense to the renal parenchyma T1 and T2 signal and show significantly increased si gnal on DWI sequence within inferior aspect of the left kidney. This lesion is significantly enlarged since prior study in 2005, was seen on recent CT of abdomen and pelvis and shows minimal enhancement after intravenous contrast administration. No hydronephrosis seen. Liver and spleen shows normal appearance. Gallbladder is not visualized, probably surgically absent. Adrenal glands are not well seen. Pancreas is atrophic. Slightly prominent pancreatic duct is seen. Large hiatal hernia is demonstrated. Loops of bowel are within upper limits of normal for size and extensively filled with stool. Visualized portion of the spinal canal appear normal. No significant lymphadenopathy seen. IMPRESSION: 1. Slowly enlarging likely soft tissue mass within inferior aspect of the left kidney shows minimal enhancement most likely represent slowly growing neoplasm. Urology evaluation is recommended.. 2. Large hiatal hernia. 3. Atrophic pancreas. 4. The rest of findings as above. ACT 112: Positive. There are findings on this exam that require communication between the performing entity and the patient following Patient Test Result Information Act ([place] Act 112) guidelines. The above report was generated using voice recognition software. It may contain grammatical, syntax o r spelling errors. Electronically signed by: Cely Rothman DO 04/16/2021 11:13 AM
--- NOTE | 2021-04-16 11:19 | Anesthesiology Consultation ---
Date of Service April 16, 2021 Assessment & Plan ASA ASA3 Proposed Anesthesia Anesthesia Type: MAC Risk / Benefits Reviewed With: PT / POA / Parent / Guardian, Accepts Plan and Informed Consent Obtained History Surgery Operation Date: 04/16/21 16:00 Proposed Procedures p Esophagogastroduodenoscopy Dr Virgil Herman, DO Height/Weight Height: 6 ft Weight: 68.8 kg Allergies Allergy/AdvReac Type Severity Reaction Status Date / Time No Known Allergies Allergy Verified 04/13/21 10:51 Medications Home Medications Medication Instructions Recorded Confirmed Last Taken citalopram 20 mg tablet 20 mg PO QAM #90 tab 08/22/20 04/13/21 04/12/21 lisinopril 20 mg tablet 20 mg PO QAM #30 tab 09/25/20 04/13/21 04/12/21 famotidine [Pepcid] 20 mg PO BID #60 tab 01/03/21 04/13/21 04/12/21 pantoprazole 40 mg PO BID #180 tab 01/03/21 04/13/21 04/12/21 buprenorphine-naloxone 1 tab SUBLINGUAL BID 01/09/21 04/13/21 04/12/21 Dexilant 60 mg PO DIRECTED 01/11/21 04/13/21 04/12/21 gabapentin 300 mg capsule 300 mg PO TID PRN #90 cap 02/05/21 04/13/21 04/06/21 21:00 sucralfate 1 g PO QID #400 ml 04/09/21 04/13/21 04/12/21 clonidine HCl 0.1 mg tablet 0.1 mg PO BID PRN #60 tab 04/10/21 04/13/21 Unknown fluoride (sodium) [PreviDent 5000 1 applic DENTAL HS 04/13/21 04/13/21 04/12/21 Booster Plus] sodium sulf 1.479 gram-potas See Rx Instructions PO .COMPLEX 04/13/21 Unknown chloride 0.188 gram-magnesium sulf #24 tab tablet Active Medications Generic Name Dose Route Start Last Admin Trade Name Freq PRN Reason Stop Dose Admin Buprenorphine/Naloxone 1 tab 04/13/21 21:00 04/16/21 08:53 Buprenorphine/Naloxone 8/2 Mg Tab SL 05/13/21 20:59 1 tab BID YANETH Administration Citalopram Hydrobromide 20 mg 04/14/21 09:00 04/15/21 08:26 Citalopram 20 Mg Tab PO 05/14/21 08:59 20 mg QAM YANETH Administration Clonidine HCl 0.1 mg 04/13/21 18:33 04/15/21 08:27 Clonidine Hcl 0.1 Mg Tab PO 05/13/21 18:32 0.1 mg BID PRN Administration Anxiety Nystatin 30 ml/ Dexamethasone 0 ml 04/13/21 15:30 04/16/21 08:12 3.75 mg/ Diphenhydramine HCl PO 05/13/21 15:29 5 ml 300 mg/ Sucrose 45 ml/ Q4H YANETH Administration Microcrystalline Cellulose 45 ml/ BARCODE IDENTIFIER 1 ea Enoxaparin Sodium 30 mg 04/13/21 21:00 04/15/21 20:42 Enoxaparin Inj 30 Mg/0.3 Ml Syr SQ 05/13/21 20:59 30 mg Q24H YANETH Administration Famotidine 20 mg 04/13/21 21:00 04/15/21 20:42 Famotidine 20 Mg Tab PO 05/13/21 20:59 20 mg BID YANETH Administration Gabapentin 300 mg 04/13/21 18:33 04/15/21 08:26 Gabapentin 300 Mg Cap PO 05/13/21 18:32 300 mg TID PRN Administration Pain Pantoprazole Sodium 40 mg/ 10 mls @ 5 mls/min 04/13/21 21:00 04/16/21 08:54 Syringe IV 05/13/21 20:59 5 mls/min BID YANETH Administration Lactated Ringer's 1,000 mls @ 100 mls/hr 04/14/21 15:15 04/16/21 08:09 Lr IV 05/14/21 15:14 100 mls/hr .Q10H YANETH Administration Lisinopril 20 mg 04/14/21 09:00 04/15/21 08:26 Lisinopril 20 Mg Tab PO 05/14/21 08:59 20 mg QAM YANETH Administration Melatonin 3 mg 04/14/21 23:39 04/15/21 00:03 Melatonin 3 Mg Tab PO 05/14/21 23:38 3 mg HS PRN Administration Sleep Metoclopramide HCl 10 mg 04/13/21 18:33 04/14/21 08:09 Metoclopramide Hcl Inj 5 Mg/Ml 2 Ml Vial IV 05/13/21 18:32 10 mg Q6H PRN Administration Nausea Sucralfate 1 gm 04/13/21 20:00 04/15/21 12:46 Sucralfate 1 Gm/10 Ml Udc PO 05/13/21 19:59 1 gm QID YANETH Administration NPO Date Last Intake of Fluids: 04/15/21 Time Last Intake of Fluids: 23:45 Date Last Intake of Solids: 04/15/21 Time Last Intake of Solids: 23:00 Past Medical History Medical History Abdominal pain Recently admitted for abdominal pain- pain improved since discharged on 01/03/21 Abnormal weight loss 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 dx'ed with esophageal cancer in 2007 EGD in 10/2020 did show Barretts with esophagitis and ulcers - put on PPI Candidal esophagitis S/p treatment after EGD Esophageal cancer 2007 s/p chemo and radiation Fissure, anal Pt unsure if still present- getting repeat colonoscopy in the future Fracture of multiple thoracic vertebrae 25 years ago Gastro-esophageal reflux disease with esophagitis Uncontrolled Hepatitis C [id number] Hypertension Lumbago Restless leg No current issues 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 Withdrawal from opioids Was on increased opioids in the past secondary to chronic back pain- weaned off pain medications- was taking herbal supplement (Kraton)= now using S uboxone to taper off supplement Exercise / Class Metabolic Activity II 4-5 Yardwork/Stairs/Walk up hill Past Family History Family History Father Hypertension Myocardial infarction Coronary heart disease Mother Cancer Skin and Lung Brother Hypertension Other No family history of adverse response to anesthesia Denies family history of Ovarian cancer Prostate cancer Breast cancer Colorectal cancer Past Surgical History Surgical History History of anesthesia reaction pt states he woke up during 2 EGD procedures and during shoulder sx History of colonoscopy History of cystoscopy History of esophagectomy 2007 History of esophagogastroduodenoscopy (EGD) recent 10/31/2020 History of repair of rotator cuff right and left shoulder History of right knee surgery meniscectomy Hx laparoscopic cholecystectomy Status post surgery neck surgery with hardware Past Anesthesia History No Hx of Anesthesia Complications and No Family Hx of Anesthesia Complications History of PONV No Hx of PONV and No Hx of Motion Sickness Social History Smoking Status: Never smoker tobacco type: cigarettes Hx Alcohol Use: No Hx Substance Use: No substance use type: does not use Substance Use Type Other:: Suboxone Review of Systems denies fever/cough/ colds/ chest pain/ SOB/ RICARDO denies RICARDO Physical Exam Vital Signs Last Vital Signs Temp 37 C 04/16/21 10:57 Pulse 67 04/16/21 10:57 Resp 16 04/16/21 10:57 BP 151/90 H 04/16/21 10:57 Pulse Ox 97 04/16/21 10:57 ENMT Mouth: no TMJ abnormality and no dentition abnormality Thyromental Distance: > or= 3.5 Finger Breadths Mallampati Class: II Neck neck extension not limited Respiratory normal respiratory effort; no respiratory distress Auscultation: lungs clear to auscultation bilaterally Cardiovascular Rate/Rhythm: regular rate and regular rhythm Neurologic moves all extremities Psychiatric Orientation: alert and oriented x 3 Testing Laboratory Results 04/16/21 06:19 04/16/21 06:19 Urine Color Yellow 04/13/21 12:05 Urine Appearance Clear (Clear) 04/13/21 12:05 Urine pH 8.5 (4.5-7.5) H 04/13/21 12:05 Ur Specific [place] 1.028 (1.000-1.030) 04/13/21 12:05 Urine Protein Negative (Negative) 04/13/21 12:05 Urine Glucose (UA) Negative (Negative) 04/13/21 12:05 Urine Ketones 1+ (Negative) H 04/13/21 12:05 Urine Nitrite Negative (Negative) 04/13/21 12:05 Ur Leukocyte Esterase Negative (Negative) 04/13/21 12:05
--- NOTE | 2021-04-16 11:40 | GI REPORT ---
Patient Name: Shahbaz Arechiga Procedure Date: 04/16/2021 11:18 AM Date of : 1965 Admit Type: Inpatient Age: 55 Gender: Male Attending MD: Vishal Herman DO Procedure: Upper GI endoscopy Providers: Vishal Herman DO Referring MD: Micky Rao Md Indications: Nausea with vomiting Medicines: Monitored Anesthesia Care Complications: No immediate complications. Estimated Blood Loss: Estimated blood loss: none. Procedure: Pre-Anesthesia Assessment: - Prior to the procedure, a History and Physical was performed, and patient medications and allergies were reviewed. The patient's tolerance of previous anesthesia was also reviewed. The risks and benefits of the procedure and the sedation options and risks were discussed with the patient. All questions were answered, and informed consent was obtained. Prior Anticoagulants: The patient has taken no previous anticoagulant or antiplatelet agents. ASA Grade Assessment: III - A patient with severe systemic disease. After reviewing the risks and benefits, the patient was deemed in satisfactory condition to undergo the procedure. After obtaining informed consent, the endoscope was passed under direct vision. Throughout the procedure, the patient's blood pressure, pulse, and oxygen saturations were monitored continuously. The Endoscope was introduced through the mouth, and advanced to the second part of duodenum. The upper GI endoscopy was accomplished without difficulty. The patient tolerated the procedure well. Findings: An esophago-gastric anastomosis was found in the middle third of the esophagus. Biopsies were taken with a cold forceps for histology. The stomach was normal. The examined duodenum was normal. Impression: - An esophago-gastric anastomosis was found. Biopsied. - Normal stomach. - Normal examined duodenum. Recommendation: - Resume previous diet. - Continue present medications. - Await pathology results. - Return to primary care physician as previously scheduled. Vishal Herman DO 04/16/2021 11:40:01 AM This report has been signed electronically. Note Initiated On: 04/16/2021 11:18 AM Number of Addenda: 0 I attest to the content of the Intraoperative Record and orders documented therein, exceptions below {[id number]}
--- NOTE | 2021-04-16 11:52 | Anesthesiology Progress Note ---
Date of Service April 16, 2021 Anesthesia Post Procedure Vital Signs Vital Signs: Temp Pulse Resp BP BP Pulse Ox 04/16/21 11:37 65 16 116/71 97 04/16/21 10:57 37 C 67 16 151/90 H 97 04/16/21 07:06 36.9 C 72 16 144/90 H 97 04/15/21 22:08 36.6 C 81 16 137/82 96 04/15/21 17:54 37.0 C 83 18 155/86 H 96 Pain Intensity Abdomen: Pain Intensity: 5 Upper Chest: Pain Intensity: 4 Transfer of Care Handoff Completed per policy Notes Mental Status: alert / awake / arousable and participated in evaluation Patient Amnestic to Procedure: Yes Nausea / Vomiting: adequately controlled Pain: adequately controlled Airway Patency, RR, SpO2: stable & adequate BP & HR: stable & adequate Hydration State: stable & adequate Anesthetic Complications: no major complications apparent and Pt Satisfied with anesthetic care
[2021-04-16] MEDS: FAMOTIDINE 20 MG TAB PO SCH (13:58)
[2021-04-16] MEDS: CITALOPRAM 20 MG TAB PO SCH (13:58)
[2021-04-16] MEDS: lisinopril 20 MG TAB PO SCH (13:58)
--- NOTE | 2021-04-16 16:12 | Discharge Summary ---
Date of Service April 16, 2021 Admission HPI Per Admitting Provider This is a 55-year-old male with past medical history of previous esophageal cancer treated with esophagectomy with pull through, chronic esophagitis with barretts, recent prostatectomy for prostate cancer. Recently admitted and discharged for vomiting, abdominal pain and nausea. He was discharged on the 09 of April. He was treated with IV PPI, Nystatin swish and spit and slowly advance his diet. He presents today complaining of nausea vomiting as well as abdominal pain that was refractory to Ondansetron 4mg x2, Promethazine 12.5mg, Reglan 10mg, Pepcid 20mg IV and Aluminum hydroxy/magnesium hydroxy/simethicone cocktail. He is groggy on exam and is unable to give any specific information. He had spaghetti last night that he kept down and has not thrown anything up until this morning. He also states that he has felt cold and then hot this morning prior to his vomiting. He tried to go to work and couldn't so he came here. He is unable to verbalize whether he has painful symptoms with urination or defecation. "I'm not sure, I don't know." Patient will be admitted for symptom control- follow infectious markers with is chills. However now there is no appearing abnormality. Urine is unremarkable. He is closely followed with GI and is pending a gastric emptying study. -Moderately severe esophagitis with no bleeding was found. Biopsies were - taken with a cold forceps for histology. Estimated blood loss: none. - The entire examined stomach was normal. Biopsies were taken with a cold - forceps for Helicobacter pylori testing. Estimated blood loss: none. - The duodenal bulb and second portion of the duodenum were normal. last COLO 12/17- with non bleeding hemorrhoids. Admission Exam Per Admitting Provider General: awake, alert, no apparent distress Head: Normocephalic, atraumatic ENT: PERRL, EOMI, no pharyngeal exudate, mucous membranes moist Neuro: AAO x 3, speech clear and appropriate, strength intact bilaterally 5/5, sensation intact and equal all extremities and dermatomes, no pronator drift Chest: equal rise and fall of the chest, no accessory muscle use, no heaves or thrills, Clear to auscultation, on room air, Cardiac: Regular rate and rhythm, telemetry reviewed, skin warm dry, cap refill <3 seconds, peripheral pulses +2 no JVD, no murmur, no edema GI: NABS x 4 quadrants, soft, nontender to palpation, no rebound, guarding or tenderness, vomitus is yellow biliary in nature, no food particles, no blood : Spontaneously voiding, no pain, no CVA tenderness, Extremities: Normal inspection, no peripheral edema or erythema, calfs nontender to palpation Psych: Normal mood and affect Skin: no rash or erythema Principal Diagnosis Nausea and vomiting Discharge Exam Constitutional well developed and + thin; + not well nourished and no acute distress Eyes + anicteric sclerae; normal pupil size ENMT external ear and nose normal, oropharynx normal Respiratory normal respiratory effort, lungs clear to auscultation Cardiovascular RRR, no murmur, no edema Gastrointestinal (Abdomen) normal bowel sounds, soft, nontender, no hepatosplenomegaly Musculoskeletal no cyanosis or clubbing, extremities motor strength 5/5 Skin no rashes, warm and dry Neurologic moves all extremities and awake; not confused Psychiatric A+Ox3, euthymic affect Discharge Data Allergies Allergy/AdvReac Type Severity Reaction Status Date / Time No Known Allergies Allergy Verified 04/13/21 10:51 Consultations 04/13/21 13:53 ED Decision to Admit Stat 04/14/21 14:52 Consult Urology Routine 04/14/21 14:56 Consult Gastroenterology Routine Procedures Performed Operation Date: 04/16/21 16:00 Actual Procedures p EGD Biopsy Cytology - Vishla Montaño Case, DO Ordered Studies 04/13/21 11:13 CT abd pelvis IV con only Stat IMPRESSION: 1. 4 cm intermediate attenuation lesion within the lower pole of the left kidney which contains a calcified septation. This is suspicious for a renal neoplasm however a complex cyst cannot be excluded. Nonemergent renal protocol MRI is recommended. 2. Status post esophagectomy with gastric pull-through, partially imaged on this exam. Findings raising the possibility of gastritis. 3. No bowel obstruction. Moderate amount of stool within the colon. Difficult study to interpret given paucity of fat. 4. Distended bladder with bladder wall thickening and adjacent infiltration which could be correlated with urinalysis to exclude cystitis. 04/14/21 10:21 MR abdomen wo/w con Routine IMPRESSION: 1. Slowly enlarging likely soft tissue mass within inferior aspect of the left kidney shows minimal enhancement most likely represent slowly growing neoplasm. Urology evaluation is recommended.. 2. Large hiatal hernia. 3. Atrophic pancreas. 4. The rest of findings as above. Hospital Course (1) Murry esophagus: Shahbaz Arechiga is a 55 year old male admitted to [facility] from April 13-2020 due to recurrent nausea and vomiting. Workup with upper endoscopy did not reveal a cause for his recurrent symptoms however nausea and vomiting appeared to subside with acid reducing medications. Metoclopramide prescribed for nausea if his symptoms recur as possibly secondary to a hypomotility issue. He should follow up with his micro paleontologist for ongoing workup for this. He will continue on his usual reflux regimen with pantoprazole, famotidine and Carafate. Highly advised to avoid coffee and sodas. Biopsy results taken during endoscopy are outstanding on discharge. Incidentally he was noted to have a renal mass on imaging. Subsequent MRI showed this is a slowly enlarging likely soft tissue mass within the inferior aspect of his left kidney most likely representing a slowly growing neoplasm. He was reviewed by urology and will be contacted for a follow up appointment regarding further management of this. (2) Nausea & vomiting: (3) Chills: (4) Hypertension: (5) Prostate cancer: (6) Opioid abuse: (7) Renal mass: Total Time Total Time Spent Total Time Spent (In Minutes): 25 Total Time Includes: Examination of the Patient, Discharge Planning and Medication Reconciliation Discharge Plan Discharge Items Patient Disposition: Home - Self-Care Reason For Visit: EMESIS Discharge Diagnosis: Nausea and vomiting Activity: Resume your previous activity Non-emergency contact: Sr. [employer] Sourcing Manager Call non-emergency contact if: you have any medication questions and your symptoms worsen Follow-up/Referrals: Vishal Herman DO [Physician] - (within the next month) Rafiq Boucher III, MD [Primary Care Provider] - 04/25/21 11:30 am (With Anne BUCHANAN) Damon Duarte MD [Physician] - (f/u to be arranged by urology) Diet: Other - See Diet Comment Diet Comment: GERD Friendly diet, see seperate printout Addtl Attending Provider Instructions: You were admitted to [facility] from April 13-2020 due to recurrent nausea and vomiting. Workup with upper endoscopy did not reveal a cause for your symptoms however your nausea and vomiting appear to have subsided at the current time. Recommend taking metoclopramide for nausea if your symptoms recur as possibly secondary to a hypomotility issue. Please follow up with Gastroenterology for ongoing management. Continue on your current reflux regimen with pantoprazole, famotidine and Carafate (leave 2 hours after taking Carafate to take any other medications to avoid malabsorption). Avoid coffee and sodas. Incidentally you were noted to have a kidney mass on imaging. Subsequent MRI showed this is a slowly enlarging likely soft tissue mass within the inferior aspect of your left kidney most likely representing a slowly growing neoplasm. You were reviewed by urology and will be contacted for a follow up appointment (please call the number above if you do not hear anything over the next week). Pending Studies at Discharge: Yes Stand-Alone Forms: [facility] [employer], Opioid Pain Management, Work/School Release, Smoking Cessation Medications and DC Order Prescriptions: New metoclopramide HCl 10 mg tablet 10 mg PO Q6H PRN (Reason: nausea and vomiting) Qty: 30 RF: 0 Continued citalopram 20 mg tablet 20 mg PO QAM Qty: 90 RF: 3 lisinopril 20 mg tablet 20 mg PO QAM Qty: 30 RF: 11 gabapentin 300 mg capsule 300 mg PO TID PRN (Reason: Pain) Qty: 90 RF: 5 clonidine HCl 0.1 mg tablet 0.1 mg PO BID PRN (Reason: Anxiety) Qty: 60 RF: 1 Sutab 1.479-0.188 gram tablet See Rx Instructions PO .COMPLEX Qty: 24 RF: 0 buprenorphine-naloxone 8-2 mg Tablet, Sublingual 1 tab SUBLINGUAL BID RF: 0 famotidine [Pepcid] 40 mg tablet 20 mg PO BID Qty: 60 RF: 3 pantoprazole 40 mg tablet,delayed release (DR/EC) 40 mg PO BID Qty: 180 RF: 3 fluoride (sodium) [PreviDent 5000 Booster Plus] 1.1 % paste 1 applic dental HS RF: 0 Changed sucralfate 100 mg/mL Suspension 1 g PO ACHS Qty: 400 RF: 0 Discontinued Dexilant 60 mg capsule,biphase delayed releas 60 mg PO DIRECTED RF: 0 Discharge Orders: Discharge Order (Routine); Ordered 04/16/21 Ordered By: Micky Contreras/Other Patient Handouts: GERD Dc Admission Data Admit Date/Time: 04/13/21 16:54 Attending Provider: Micky Rao Admit Provider: Elie Flynn Primary Care Provider: Rafiq Boucher III Other Providers: Micky Leong ; Damon Duarte ; Vishal Herman Other Interventions: Discharge Summary Assessment (RN) Last Done: 04/16/21 16:22 Coding Level of Care Code D/C Day Management <30 mins Diagnoses Murry esophagus K22.719 Murry's esophagus type: with dysplasia of unspecified degree Nausea & vomiting R11.14 Vomiting type: bilious vomiting Chills R68.83 Hypertension I10 Hypertension type: unspecified Prostate cancer C61 Opioid abuse F11.10 Renal mass N28.89
[2021-04-16] MEDS ORDERED: PANTOprazole 40 MG TAB PO SCH (21:00)
== END 2021-04-16 16:57 | disposition home or self-care (01) | DRG 381 ==
LOC: ED 09:44 → SUATTDRO 16:54 → 3N 16:54
DX: K21.00 Gastro-esophageal reflux disease with esophagitis, without bleeding; Z90.79 Acquired absence of other genital organ(s); Z85.01 Personal history of malignant neoplasm of esophagus; Z92.3 Personal history of irradiation; Z90.49 Acquired absence of other specified parts of digestive tract; I10 Essential (primary) hypertension; Z79.899 Other long term (current) drug therapy; K22.70 Barrett's esophagus without dysplasia; C64.2 Malignant neoplasm of left kidney, except renal pelvis; R68.83 Chills (without fever); F11.10 Opioid abuse, uncomplicated; C61 Malignant neoplasm of prostate; R11.2 Nausea with vomiting, unspecified; F17.210 Nicotine dependence, cigarettes, uncomplicated; Z86.19 Personal history of other infectious and parasitic diseases; Z92.21 Personal history of antineoplastic chemotherapy

== ENCOUNTER 2021-07-05 08:15 | Observation (INO) ==
[2021-07-05] MEDS ORDERED: ONDANSETRON INJ 2 MG/ML 2 ML VIAL IV STA (08:35)
[2021-07-05 09:06] LABS: Basophils # (auto) 0.03 K/uL (0-0.2); Basophils % (auto) 0.4 %; Eosinophils # (auto) 0.02 K/uL (0-0.5); Eosinophils % (auto) 0.3 %; Immature Granulocytes # (auto) 0.02 K/uL (0.00-0.02); Immature Granulocytes % (auto) 0.3 %; Lymphocytes # (auto) 0.94 K/uL (1.2-3.4); Lymphocytes % (auto) 13.1 %; Mean Corpuscular Hemoglobin 27.5 pg (25-34); Mean Corpuscular Hgb Conc 32.5 g/dL (32-36); Mean Corpuscular Volume 84.6 fL (80-100); Mean Platelet Volume 10.7 fL (7.4-10.4); Monocytes # (auto) 0.48 K/uL (0.11-0.59); Monocytes % (auto) 6.7 %; Neutrophils % (auto) 79.2 %; Platelet Count 292 K/uL (130-400); RDW Coefficient of Variation 14.9 % (11.5-14.5); RDW Standard Deviation 46.6 fL (36.4-46.3); Red Blood Count 4.73 M/uL (4.7-6.1); White Blood Count 7.19 K/uL (4.8-10.8)
[2021-07-05] MEDS ORDERED: FAMOTIDINE 20MG IV PUSH 20 MG/5 ML SYR IV STA (09:10)
[2021-07-05] MEDS ORDERED: PANTOprazole 40 MG in SYRINGE 0 ML IV ONE (09:10)
[2021-07-05] MEDS ORDERED: fentaNYL citrate 100 MCG/2 ML VIAL IV STA (09:10)
[2021-07-05] MEDS ORDERED: SODIUM CHLORIDE 0.9% 1000ML 1,000 ML IV ONE (09:10)
[2021-07-05 09:28] LABS: Alanine Aminotransferase 17 U/L (12-78); Aspartate Aminotransferase 14 U/L (15-37); BUN Creatinine Ratio 8.5 (10-20); Blood Urea Nitrogen 9 mg/dl (7-18); Calcium 9.3 mg/dl (8.5-10.1); Carbon Dioxide 27 mmol/L (21-32); Chloride 107 mmol/L (98-107); Est GFR (African American) 91.9 ml/min; Est GFR (Non-African American) 79.3 ml/min; Glucose 136 mg/dl (70-99); Lipase 199 U/L (73-393); Potassium 4.2 mmol/L (3.5-5.1); Sodium 140 mmol/L (136-145)
[2021-07-05 09:31] LABS: Albumin Globulin Ratio 1.1 (0.9-2); Alkaline Phosphatase 97 U/L (45-117); Bilirubin,Total 0.5 mg/dl (0.2-1); Globulin 3.5 gm/dl (2.5-4.0); Total Protein 7.5 gm/dl (6.4-8.2)
[2021-07-05 09:44] LABS: Troponin I < 0.015 ng/ml (0-0.045)
[2021-07-05] MEDS ORDERED: METOCLOPRAMIDE HCL INJ 5 MG/ML 2 ML VIAL IV STA (10:02)
[2021-07-05] MEDS ORDERED: OPTIRAY 320 125ml IV ONE (10:26)
--- NOTE | 2021-07-05 10:44 | Emergency Department Note ---
Impression & Plan Nausea & vomiting, Abdominal pain, Chest pain ED Provider Note Provider: Jamal Moe MD DATE OF SERVICE: 07/05/2021 CHIEF COMPLAINT: Abdominal pain, nausea, chest pain HISTORY OF PRESENT ILLNESS: Patient is a 55-year-old gentleman history of prostate cancer, recently diagnosed renal mass, Murry's esophagus, and hypertension presenting here today reporting onset yesterday morning of sig nificant abdominal discomfort and vomiting. Improved during the day but came back this morning when he woke at 5 AM. Is been vomiting all morning not keeping anything down. Reports some green and slightly bloody vomit at times. Reports some pain in the upper stomach low back and mid chest. Patient denies significant shortness of breath or fevers. No trauma reported. Patient is a history of stomach issues in the past. Patient reports he has tried some Zofran nausea medicine at home without improvement. Patient denies significant lower abdominal pain. REVIEW OF SYSTEMS: A total of 10 review of systems was obtained and negative except as stated above in the HPI. PAST MEDICAL HISTORY: As noted above MEDICATIONS: Reviewed home medication list SOCIAL HISTORY: Former smoker PHYSICAL EXAM: GENERAL: alert and oriented sitting on the stretcher appears uncomfortable with emesis bag in hand. Head: normocephalic and atraumatic EYES: No injection, discharge or icterus. NECK: Trachea midline. ENT: Mucous membranes pink and moist. LUNGS: Airway patent. No retractions. Breath sounds clear with good air entry bilaterally. HEART: Regular rate and rhythm. No chest wall tenderness ABDOMEN: Soft with some mild epigastric discomfort. No lower abdominal tenderness. SKIN: Acyanotic, warm, dry, without rashes EXTREMITIES: Without swelling, tenderness or deformity NEUROLOGICAL: No focal deficits. No aphasia. No facial droop or slurred speech. Normal strength and tone in the extremities. Sensation to gross touch normal. EK bpm normal sinus rhythm with sinus arrhythmia. No PVC or PAC. No acute ST segment elevation or depression. QTC 407. CONTINUOUS CARDIAC MONITORING: was ordered and showed a heart rate of 60-90s bpm in NSR Patient's laboratory studies and imaging reviewed. Differential includes Appendicitis, infections, diverticulitis, UTI, obstruction, mesenteric ischemia, aortic pathology, inflammatory bowel disease, renal colic, PUD, pancreatitis, biliary pathology, hernia, volvulus, constipation, cardiac, pulmonary, as well as other pathologies. IMPRESSION/MEDICAL DECISION MAKING: Patient with significant prior history which was reviewed. EKG and troponin are reassuring. CT of the chest as well as the abdomen pelvis obtained to exclude signs of possible perforation, PE, obstruction, pancreatitis, or other pathology. Per radiology no significant acute findings here behind some constipation. I doubt any esophageal perforation especially with the imaging. Significant history of Murry's may be contributing. Blood work reassuring without leukocytosis and mild anemia. No severe electrolyte abnormality. Normal renal function. No significant LFT abnormality. No evidence of pancreatitis based on labs either. Urinalysis reassuring. Covid test was completed and negative. Treated with multiple medications including Protonix, Pepcid, fluids, Reglan, Zofran, and later droperidol without improvement of his symptoms. Still significantly nauseous and intermittently retching in the room. Given his significant continued symptomatologies do not feel the patient is in a place to go home as he is now tolerating oral intake and he is in agreement. The hospitalist was contacted. DIAGNOSIS: Intractable nausea or vomiting, chest pain, epigastric pain DISPOSITION: Hospitalist will evaluate Patient was agreeable with this plan. Past Med/Surg History Medical History Abdominal pain Recently admitted for abdominal pain- pain improved since discharged on 01/03/21 Abnormal weight loss 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 dx'ed with esophageal cancer in 2007 EGD in 10/2020 did show Barretts with esophagitis and ulcers - put on PPI Candidal esophagitis S/p treatment after EGD Esophageal cancer 2007 s/p chemo and radiation Fissure, anal Pt unsure if still present- getting repeat colonoscopy in the future Fracture of multiple thoracic vertebrae 25 years ago Gastro-esophageal reflux disease with esophagitis Uncontrolled Hepatitis C [id number] Hypertension Lumbago Restless leg No current issues 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 Withdrawal from opioids Was on increased opioids in the past secondary to chronic back pain- weaned off pain medications- was taking herbal supplement (Kraton)= now using Suboxone to taper off supplement Surgical History History of anesthesia reaction pt states he woke up during 2 EGD procedures and during shoulder sx History of colonoscopy History of cystoscopy History of esophagectomy 2007 History of esophagogastroduodenoscopy (EGD) recent 10/31/2020 History of repair of rotator cuff right and left shoulder History of right knee surgery meniscectomy Hx laparoscopic cholecystectomy Status post surgery neck surgery with hardware Family History Father Hypertension Myocardial infarction Coronary heart disease Mother Cancer Skin and Lung Brother Hypertension Other No family history of adverse response to anesthesia Denies family history of Ovarian cancer Prostate cancer Breast cancer Colorectal cancer Social History Smoking Status: Former smoker Tobacco Type: Cigarettes Years Smoked: 10; Second Hand Exposure: No; Hx Alcohol Use: No Hx Substance Use: No Preferred Language: Kazakh Communication Ability: Effective Visual Impairment: No Limitations Hearing Ability: Normal Detective Youth Bureau Required: No Beliefs That Will Affect Care: None marital status: Current Living Situation: Spouse current occupational status: employed 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 Feels Safe at Home: Yes Childhood Exposure to Second-Hand Smoke: Yes caffeine: Yes Dental Care, Regularly: Yes Physical Activity Frequency: Daily Seatbelt Use: always Sunscreen Use: No Assistive Devices: None Allergies Allergies Allergy/AdvReac Type Severity Reaction Status Date / Time No Known Allergies Allergy Verified 07/05/21 13:03 Home Meds Home Medications Medication Instructions Recorded Confirmed buprenorphine 8 mg-naloxone 2 mg 1 tab SUBLINGUAL BID 01/09/21 07/05/21 sublingual tablet fluoride (sodium) 1.1 % dental 1 applic DENTAL HS 04/13/21 07/05/21 paste (PreviDent 5000 Booster Plus) ondansetron HCl 4 mg tablet 4 mg PO Q8 PRN 07/05/21 07/05/21 Previous Rx's Medication Instructions Recorded citalopram 20 mg tablet 20 mg PO QAM #90 tab 08/22/20 lisinopril 20 mg tablet 20 mg PO QAM #30 tab 09/25/20 gabapentin 300 mg capsule 300 mg PO TID PRN #90 cap 02/05/21 metoclopramide HCl 10 mg tablet 10 mg PO Q6H PRN #30 tab 04/16/21 sucralfate 100 mg/mL oral 1 g PO ACHS #400 ml 04/16/21 suspension dexlansoprazole 60 mg 60 mg PO DAILY #30 cap 06/11/21 capsule,biphase delayed release clonidine HCl 0.1 mg tablet 0.1 mg PO BID PRN #60 tab 06/19/21 famotidine 40 mg tablet (Pepcid) 20 mg PO BID #90 tab 06/25/21 Results & Data (ED) Vital Signs Vital Signs - 24 hr 07/05/21 08:32 07/05/21 08:57 07/05/21 09:00 Temperature 36.5 C Temperature Source Temporal Artery Scan Pulse Rate 78 73 71 Pulse Rate from SpO2 Sensor 81 72 Pulse Rhythm Regular Pulse Strength Normal Respiratory Rate 20 22 23 Respiratory Effort / Characteristics Non-Labored Spontaneous Respiratory Depth Normal Respiratory Pattern Regular Blood Pressure 164/84 H 176/100 H 166/92 H Blood Pressure Mean 110 125 116 Blood Pressure Position Sitting Pulse Oximetry 99 99 99 Oxygen Delivery Method Room Air Sepsis Recent Fever Within 48 Hours No Sepsis New/Unexplained Change in Mental Status No Sepsis Action Taken by Nursing No Action Required 07/05/21 09:30 07/05/21 10:00 07/05/21 10:38 Temperature Temperature Source Pulse Rate 88 88 87 Pulse Rate from SpO2 Sensor 81 92 H Pulse Rhythm Pulse Strength Respiratory Rate 13 18 18 Respiratory Effort / Characteristics Respiratory Depth Respiratory Pattern Blood Pressure 146/121 H 170/94 H Blood Pressure Mean 129 119 Blood Pressure Position Pulse Oximetry 98 97 Oxygen Delivery Method Sepsis Recent Fever Within 48 Hours Sepsis New/Unexplained Change in Mental Status Sepsis Action Taken by Nursing 07/05/21 11:01 07/05/21 11:30 07/05/21 12:00 Temperature Temperature Source Pulse Rate 86 68 68 Pulse Rate from SpO2 Sensor 79 68 Pulse Rhythm Pulse Strength Respiratory Rate 19 17 17 Respiratory Effort / Characteristics Respiratory Depth Respiratory Pattern Blood Pressure 154/95 H 157/95 H 151/80 H Blood Pressure Mean 114 115 103 Blood Pressure Position Pulse Oximetry 97 98 Oxygen Delivery Method Sepsis Recent Fever Within 48 Hours Sepsis New/Unexplained Change in Mental Status Sepsis Action Taken by Nursing Laboratory Data Result diagrams: 07/05/21 Unknown 07/05/21 Unknown Lab Results 07/05/21 07/05/21 07/05/21 Range/Units 11:00 11:00 12:05 Urine Color Yellow Urine Appearance Clear (Clear) Urine pH 7.0 (4.5-7.5) Ur Specific [place] > 1.045 H (1.000-1.030) Urine Protein Negative (Negative) Urine Glucose (UA) Negative (Negative) Urine Ketones Trace H (Negative) Urine Blood Negative (Negative) Urine Nitrite Negative (Negative) Urine Bilirubin Negative (Negative) Urine Urobilinogen Negative (Negative) Ur Leukocyte Esterase Negative (Negative) COVID-19 Eval Order Covid19 at [facility] SARS-CoV-2 (PCR) NEGATIVE (Negative) Administered Medications Lactated Ringer's (Lr) 1,000 mls @ 95 mls/hr IV .[id number] YANETH Stop: 08/04/21 12:29 Last Admin: 07/05/21 15:16 Dose: 95 mls/hr Documented by: [id number] Discontinued Medications Droperidol (Droperidol 5 Mg/2 Ml Vial) 1.25 mg IV ONE STA Stop: 07/05/21 11:22 Last Admin: 07/05/21 11:30 Dose: 1.25 mg Documented by: [id number] Fentanyl Citrate (Fentanyl Citrate 100 Mcg/2 Ml Vial) 50 mcg IV NOW STA Stop: 07/05/21 09:11 Last Admin: 07/05/21 09:19 Dose: 50 mcg Documented by: [id number] Famotidine (Pepcid 20mg Iv Push) 20 mg in 5 mls @ 2.5 mls/min IV NOW STA Stop: 07/05/21 09:11 Last Admin: 07/05/21 09:19 Dose: 2.5 mls/min Documented by: [id number] Sodium Chloride (Nss 1000ml) 1,000 mls @ 999 mls/hr IV .Q1H1M ONE Stop: 07/05/21 10:10 Last Infusion: 07/05/21 10:42 Dose: 0 mls/hr Documented by: [id number] Admin: 07/05/21 09:19 Dose: 999 mls/hr Documented by: [id number] Pantoprazole Sodium 40 mg/ (Syringe) 10 mls @ 5 mls/min IV NOW ONE Stop: 07/05/21 09:11 Last Admin: 07/05/21 09:48 Dose: 5 mls/min Documented by: [id number] Acetaminophen (Ofirmev) 1,000 mg in 100 mls @ 400 mls/hr IV NOW STA Stop: 07/05/21 11:35 Last Infusion: 07/05/21 11:48 Dose: 0 mls/hr Documented by: [id number] Admin: 07/05/21 11:30 Dose: 400 mls/hr Documented by: [id number] Ioversol (Optiray 320 125ml) 120 ml IV ONCE ONE Stop: 07/05/21 10:27 Last Admin: 07/05/21 10:26 Dose: 120 ml Documented by: [id number] Metoclopramide HCl (Metoclopramide Hcl Inj 5 Mg/Ml 2 Ml Vial) 10 mg IV NOW STA Stop: 07/05/21 10:03 Last Admin: 07/05/21 10:13 Dose: 10 mg Documented by: [id number] Ondansetron HCl (Ondansetron Inj 2 Mg/Ml 2 Ml Vial) 4 mg IV NOW STA Stop: 07/05/21 08:36 Last Admin: 07/05/21 08:52 Dose: 4 mg Documented by: [id number] Imaging Data Radiologist's Impression: Abdomen/Pelvis CT 07/05/21 09:10 CT ANGIOGRAM OF THE CHEST; CT SCAN OF THE ABDOMEN AND PELVIS WITH IV CONTRAST CLINICAL HISTORY: Atypical chest pain. Nausea and vomiting. Upper abdominal pain. COMPARISON STUDY: Chest CT dated 07/07/2020. Abdominal CT dated 04/13/2021. Abdominal MRI dated 04/14/2021. TECHNIQUE: Following the IV administration of 120 of Optiray 320, CT angiogram of the chest is performed from the upper abdomen to the thoracic inlet utilizing the pulmonary embolus protocol. Images are reviewed in the axial, sagittal, coronal planes. 3-D MIPS images are created and assessed. Subsequently, CT scan of the abdomen and pelvis was performed from the lung bases to the proximal femora. Images are reviewed in the axial, sagittal, and coronal planes. IV contrast was administered without complication. A dose lowering technique was utilized adhering to the principles of ALARA. The examinations are modestly degraded by motion artifact. CT DOSE: 529.28 mGy.cm FINDINGS: CHEST: Thyroid: Imaged portions of the thyroid gland are normal in size and attenuation. Esophagus: There is postoperative change from esophageal resection and gastric pull-through procedure. Thoracic aorta: The thoracic aorta is normal in caliber and demonstrates standard 3-vessel arch anatomy. No dissection is seen. Pulmonary vasculature: The pulmonary trunk is normal in caliber. There are no filling defects identified in the main, lobar, or segmental pulmonary arteries to indicate pulmonary embolus. Heart: The heart is normal in size and without pericardial effusion. Lungs and pleural spaces: There is bibasilar scarring/atelectasis. No airspace consolidation or pleural effusion is identified. The trachea and central airways are clear. Mediastinum: There is no mediastinal lymphadenopathy. Mari: Clear. Axillae: There is no axillary lymphadenopathy. Bony thorax: No lytic or blastic lesions are identified. Mild degenerative change and hyperkyphosis is noted in the thoracic spine. Fusion hardware is seen in the lower cervical spine. ABDOMEN AND PELVIS: Liver: The contrast-enhanced liver is normal in size, contour, and attenuation. There is no intrahepatic or ductal dilatation. The hepatic veins and portal veins are patent. Gallbladder: Surgically absent noting clips in the gallbladder fossa. Spleen: Normal in size and attenuation. Pancreas: Unremarkable. Adrenal glands: Unremarkable. Kidneys: The contrast enhanced kidneys are normal in size and without hydronephrosis. The kidneys enhance symmetrically. A 3.5 cm lesion is again seen arising from the lower pole of left kidney. This remains concerning for renal neoplasm. Abdominal vasculature: The abdominal aorta is normal in course and caliber noting mild atherosclerotic calcification. Bowel: There is rectosigmoid fecal retention and moderate to severe constipation. No bowel obstruction is seen. The appendix is well-visualized and normal. Peritoneum: There is no intraperitoneal free air or abdominal ascites. Lymphadenopathy: None. Pelvic viscera: The prostate gland is surgically absent. The bladder is distended but otherwise normal in appearance. Skeletal structures: No lytic or blastic lesions are seen. IMPRESSION: 1. There is no evidence of pulmonary embolus in the main, lobar, or segmental p ulmonary arteries. 2. There is no airspace consolidation or pleural effusion. 3. Again seen is postoperative change from esophageal resection and gastric pull-through procedure. 4. There is no bowel obstruction. 5. Moderate to severe constipation. 6. A 3.5 cm complex lesion is again seen in the lower pole of the left kidney end remains concerning for renal neoplasm. 7. Status post prostatectomy. 8. Additional findings as above. ACT 112: Negative or not required by law. Electronically signed by: Param Li M.D. 07/05/2021 10:52 AM Chest CTA 07/05/21 09:10 CT ANGIOGRAM OF THE CHEST; CT SCAN OF THE ABDOMEN AND PELVIS WITH IV CONTRAST CLINICAL HISTORY: Atypical chest pain. Nausea and vomiting. Upper abdominal pa in. COMPARISON STUDY: Chest CT dated 07/07/2020. Abdominal CT dated 04/13/2021. Abdominal MRI dated 04/14/2021. TECHNIQUE: Following the IV administration of 120 of Optiray 320, CT angiogram of the chest is performed from the upper abdomen to the thoracic inlet utilizing the pulmonary embolus protocol. Images are reviewed in the axial, sagittal, co radhika planes. 3-D MIPS images are created and assessed. Subsequently, CT scan of the abdomen and pelvis was performed from the lung bases to the proximal femora. Images are reviewed in the axial, sagittal, and coronal planes. IV contrast was administered without complication. A dose lowering technique was utilized adhering to the principles of ALARA. The examinations are modestly degraded by motion artifact. CT DOSE: 529.28 mGy.cm FINDINGS: CHEST: Thyroid: Imaged portions of the thyroid gland are normal in size and attenuation. Esophagus: There is postoperative change from esophageal resection and gastric pull-through procedure. Thoracic aorta: The thoracic aorta is normal in caliber and demonstrates standard 3-vessel arch anatomy. No dissection is seen. Pulmonary vasculature: The pulmonary trunk is normal in caliber. There are no filling defects identified in the main, lobar, or segmental pulmonary arteries to indicate pulmonary embolus. Heart: The heart is normal in size and without pericardial effusion. Lungs and pleural spaces: There is bibasilar scarring/atelectasis. No airspace consolidation or pleural effusion is identified. The trachea and central airways are clear. Mediastinum: There is no mediastinal lymphadenopathy. Mari: Clear. Axillae: There is no axillary lymphadenopathy. Bony thorax: No lytic or blastic lesions are identified. Mild degenerative change and hyperkyphosis is noted in the thoracic spine. Fusion hardware is seen in the lower cervical spine. ABDOMEN AND PELVIS: Liver: The contrast-enhanced liver is normal in size, contour, and attenuation. There is no intrahepatic or ductal dilatation. The hepatic veins and portal veins are patent. Gallbladder: Surgically absent noting clips in the gallbladder fossa. Spleen: Normal in size and attenuation. Pancreas: Unremarkable. Adrenal glands: Unremarkable. Kidneys: The contrast enhanced kidneys are normal in size and without hydronephrosis. The kidneys enhance symmetrically. A 3.5 cm lesion is again seen arising from the lower pole of left kidney. This remains concerning for renal neoplasm. Abdominal vasculature: The abdominal aorta is normal in course and caliber noting mild atherosclerotic calcification. Bowel: There is rectosigmoid fecal retention and moderate to severe constipation. No bowel obstruction is seen. The appendix is well-visualized and normal. Peritoneum: There is no intraperitoneal free air or abdominal ascites. Lymphadenopathy: None. Pelvic viscera: The prostate gland is surgically absent. The bladder is diste nded but otherwise normal in appearance. Skeletal structures: No lytic or blastic lesions are seen. IMPRESSION: 1. There is no evidence of pulmonary embolus in the main, lobar, or segmental pulmonary arteries. 2. There is no airspace consolidation or pleural effusion. 3. Again seen is postoperative change from esophageal resection and gastric pull-through procedure. 4. There is no bowel obstruction. 5. Moderate to severe constipation. 6. A 3.5 cm complex lesion is again seen in the lower pole of the left kidney end remains concerning for renal neoplasm. 7. Status post prostatectomy. 8. Additional findings as above. ACT 112: Negative or not required by law. Electronically signed by: Param Li M.D. 07/05/2021 10:52 AM Discharge Plan Visit Data Chief Complaint: Vomiting Stated Complaint: VOMITING ED Provider: Jamal Moe Discharge Problem: Nausea & vomiting, Abdominal pain, Chest pain Patient Disposition: Admitted As Inpatient Discharge Instructions Interventions: ED Discharge Assessment Last Done: 07/05/21 12:55 Discharge Problem: Nausea & vomiting Qualifiers: Vomiting type: unspecified Vomiting Intractability: intractable Qualified Code(s): R11.2 - Nausea with vomiting, unspecified Abdominal pain Qualifiers: Abdominal location: epigastric Qualified Code(s): R10.13 - Epigastric pain Chest pain Qualifiers: Chest pain type: unspecified Qualified Code(s): R07.9 - Chest pain, unspecified
--- NOTE | 2021-07-05 10:54 | CT Scan Report ---
CT ANGIOGRAM OF THE CHEST; CT SCAN OF THE ABDOMEN AND PELVIS WITH IV CONTRAST CLINICAL HISTORY: Atypical chest pain. Nausea and vomiting. Upper abdominal pain. COMPARISON STUDY: Chest CT dated 07/07/2020. Abdominal CT dated 04/13/2021. Abdominal MRI dated 021. TECHNIQUE: Following the IV administration of 120 of Optiray 320, CT angiogram of the chest is perfor med from the upper abdomen to the thoracic inlet utilizing the pulmonary embolus protocol. Images are reviewed in the axial, sagittal, coronal planes. 3-D MIPS images are created and assessed. Subsequen tly, CT scan of the abdomen and pelvis was performed from the lung bases to the proximal femora. Imag es are reviewed in the axial, sagittal, and coronal planes. IV contrast was administered without comp lication. A dose lowering technique was utilized adhering to the principles of ALARA. The examination s are modestly degraded by motion artifact. CT DOSE: 529.28 mGy.cm FINDINGS: CHEST: Thyroid: Imaged portions of the thyroid gland are normal in size and attenuation. Esophagus: There is postoperative change from esophageal resection and gastric pull-through procedure . Thoracic aorta: The thoracic aorta is normal in caliber and demonstrates standard 3-vessel arch anato my. No dissection is seen. Pulmonary vasculature: The pulmonary trunk is normal in caliber. There are no filling defects identif ied in the main, lobar, or segmental pulmonary arteries to indicate pulmonary embolus. Heart: The heart is normal in size and without pericardial effusion. Lungs and pleural spaces: There is bibasilar scarring/atelectasis. No airspace consolidation or pleur al effusion is identified. The trachea and central airways are clear. Mediastinum: There is no mediastinal lymphadenopathy. Mari: Clear. Axillae: There is no axillary lymphadenopathy. Bony thorax: No lytic or blastic lesions are identified. Mild degenerative change and hyperkyphosis i s noted in the thoracic spine. Fusion hardware is seen in the lower cervical spine. ABDOMEN AND PELVIS: Liver: The contrast-enhanced liver is normal in size, contour, and attenuation. There is no intrahepa tic or ductal dilatation. The hepatic veins and portal veins are patent. Gallbladder: Surgically absent noting clips in the gallbladder fossa. Spleen: Normal in size and attenuation. Pancreas: Unremarkable. Adrenal glands: Unremarkable. Kidneys: The contrast enhanced kidneys are normal in size and without hydronephrosis. The kidneys enh ance symmetrically. A 3.5 cm lesion is again seen arising from the lower pole of left kidney. This re anuradha concerning for renal neoplasm. Abdominal vasculature: The abdominal aorta is normal in course and caliber noting mild atheroscleroti c calcification. Bowel: There is rectosigmoid fecal retention and moderate to severe constipation. No bowel obstructio n is seen. The appendix is well-visualized and normal. Peritoneum: There is no intraperitoneal free air or abdominal ascites. Lymphadenopathy: None. Pelvic viscera: The prostate gland is surgically absent. The bladder is distended but otherwise bernardo l in appearance. Skeletal structures: No lytic or blastic lesions are seen. IMPRESSION: 1. There is no evidence of pulmonary embolus in the main, lobar, or segmental pulmonary arteries. 2. There is no airspace consolidation or pleural effusion. 3. Again seen is postoperative change from esophageal resection and gastric pull-through procedure. 4. There is no bowel obstruction. 5. Moderate to severe constipation. 6. A 3.5 cm complex lesion is again seen in the lower pole of the left kidney end remains concerning for renal neoplasm. 7. Status post prostatectomy. 8. Additional findings as above. ACT 112: Negative or not required by law. Electronically signed by: Param Li M.D. 07/05/2021 10:52 AM
[2021-07-05] MEDS ORDERED: ACETAMINOPHEN 1,000 MG/100 ML VIAL IV STA (11:21)
[2021-07-05] MEDS ORDERED: DROPERIDOL 5 MG/2 ML VIAL IV STA (11:21)
[2021-07-05 12:14] LABS: Appearance Urine Clear (Clear); Bilirubin Urine Negative (Negative); Blood Urine Negative (Negative); Color Urine Yellow; Glucose Urine UA Negative (Negative); Ketones Urine Trace (Negative); Leukocyte Esterase Urine Negative (Negative); Nitrite Urine Negative (Negative); Protein Urine Negative (Negative); Specific Gravity Urine > 1.045 (1.000-1.030); Urobilinogen Urine Negative (Negative)
[2021-07-05] MEDS ORDERED: ONDANSETRON INJ 2 MG/ML 2 ML VIAL IV PRN (12:32)
--- NOTE | 2021-07-05 13:07 | History & Physical Report ---
Date of Service July 05, 2021 Assessment & Plan (1) Nausea & vomiting: Plan: Acute on chronic - patient denies noncompliance with dietary/fuid intake and compliance with medicaitons - might be secondary to constipation - Continue Protonix IV and Famotidine IV - Continue Carfate - If N/V controlled can add back Duloxetine - Zofran and Reglan for nausea - LR at 90 ml/hr (2) Abdominal pain: Plan: constipation vs. GERD vs. 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 Patient comes to the emergency room today for complaints of 2 day history of loss of appetite and uncontrolled nausea and vomiting. The patient last ate yesterday at dinner and endorses that he just had some vegetable soup. He denies drinking any coffee or soda as this is his normal offending trigger. Patient states he has been d rinking water and hot tea, but mostly just water over the past 24 hours. He endorses that his emesis is mostly green, but with small amount of brown in it this morning. These episodes are associated with abdominal discomfort to his epigastrium area that is sharp ache, he received 50mcg of Fentanyl in the EMD as he is on Suboxone at home. His last bout of emesis was about an hour ago he reports, took his medications this morning and feels he kept them down. His last bowel movement he reports was about a week ago, but was normal. Patient is closely followed by GI, his last EGD was in March with normal stomach and normal duodenum, he had his anastomosis site biopsied that was negative for dysplasia and malignancy, but consistent with chronic esophagitis with his known Murry's. In the EMD the patient received Zofran 4mg, pepcid IV, Protonix IV, Reglan, and Droperidol 1.25mg IV. He also received 1 liter of 0.9% saline. He also had a CT scan of the abdomen; that shows moderate to severe constipation. The patient is feeling a little bit better but still remains with nausea and abdominal pain. Patient reports he has not received his COVID vaccine and his COVID test on admission is NEGATIVE Allergies Allergy/AdvReac Type Severity Reaction Status Date / Time No Known Allergies Allergy Verified 07/05/21 13:03 Home Medications Medication Instructions Recorded Confirmed Type citalopram 20 mg tablet 20 mg PO QAM #90 tab 08/22/20 07/05/21 Rx lisinopril 20 mg tablet 20 mg PO QAM #30 tab 09/25/20 07/05/21 Rx buprenorphine 8 mg-naloxone 2 mg 1 tab SUBLINGUAL BID 01/09/21 07/05/21 History sublingual tablet gabapentin 300 mg capsule 300 mg PO TID PRN #90 cap 02/05/21 07/05/21 Rx fluoride (sodium) 1.1 % dental 1 applic DENTAL HS 04/13/21 07/05/21 History paste (PreviDent 5000 Booster Plus) metoclopramide HCl 10 mg tablet 10 mg PO Q6H PRN #30 tab 04/16/21 07/05/21 Rx dexlansoprazole 60 mg 60 mg PO DAILY #30 cap 06/11/21 07/05/21 Rx capsule,biphase delayed release clonidine HCl 0.1 mg tablet 0.1 mg PO BID PRN #60 tab 06/19/21 07/05/21 Rx ondansetron HCl 4 mg tablet 4 mg PO Q8 PRN 07/05/21 07/05/21 History famotidine 40 mg tablet (Pepcid) 20 mg PO BID #90 tab 07/07/21 Rx pantoprazole 40 mg tablet,delayed 40 mg PO BID #60 tab 07/07/21 Rx release (Protonix) polyethylene glycol 3350 17 gram 17 g PO DAILY #100 ea 07/07/21 Rx oral powder packet (Miralax) sucralfate 100 mg/mL oral 1 g PO ACHS #400 ml 07/07/21 Rx suspension Past Med/Surg History Medical History Abdominal pain Recently admitted for abdominal pain- pain improved since discharged on 01/03/21 Abnormal weight loss 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 dx'ed with esophageal cancer in 2007 EGD in 10/2020 did show Barretts with esophagitis and ulcers - put on PPI Candidal esophagitis S/p treatment after EGD Esophageal cancer 2007 s/p chemo and radiation Fissure, anal Pt unsure if still present- getting repeat colonoscopy in the future Fracture of multiple thoracic vertebrae 25 years ago Gastro-esophageal reflux disease with esophagitis Uncontrolled Hepatitis C [id number] Hypertension Lumbago Restless leg No current issues 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 Withdrawal from opioids Was on increased opioids in the past secondary to chronic back pain- weaned off pain medications- was taking herbal supplement (Kraton)= now using Suboxone to taper off supplement Surgical History History of anesthesia reaction pt states he woke up during 2 EGD procedures and during shoulder sx History of colonoscopy History of cystoscopy History of esophagectomy 2007 History of esophagogastroduodenoscopy (EGD) recent 10/31/2020 History of repair of rotator cuff right and left shoulder History of right knee surgery meniscectomy Hx laparoscopic cholecystectomy Status post surgery neck surgery with hardware Family History Father Hypertension Myocardial infarction Coronary heart disease Mother Cancer Skin and Lung Brother Hypertension Other No family history of adverse response to anesthesia Denies family history of Ovarian cancer Prostate cancer Breast cancer Colorectal cancer Social History Smoking Status: Former smoker Tobacco Type: Cigarettes Years Smoked: 10; Second Hand Exposure: No; Hx Alcohol Use: No Hx Substance Use: No Preferred Language: Samoan Communication Ability: Effective Visual Impairment: No Limitations Hearing Ability: Normal 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 Required: No Beliefs That Will Affect Care: None marital status: Current Living Situation: Spouse current occupational status: employed 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 Feels Safe at Home: Yes Childhood Exposure to Second-Hand Smoke: Yes caffeine: Yes Dental Care, Regularly: Yes Physical Activity Frequency: Daily Seatbelt Use: always Sunscreen Use: No Assistive Devices: None Review of Systems Review of Systems: REVIEW OF SYSTEMS: Constitutional: No fever, sweats or chills Eyes: No diplopia, no worsening or blurred vision ENT: normal hearing, no trouble swallowing Respiratory: No cough, sputum, dyspnea at rest or on exertion Cardiovascular: No chest pain, tightness or palpitations Abdomen: (+) pain, nausea, vomiting, NO diarrhea or constipation Musculoskeletal: No joint pain, calf pain, swelling Neurologic: No weakness, numbness/tingling, or balance problems Psychiatric: No anxiety or depression Skin: No rash or itch Physical Exam Physical Exam: PHYSICAL EXAM: General: drowsy but awakens easily Head: Normocephalic, atraumatic ENT: PERRL, EOMI, no pharyngeal exudate, mucous membranes moist Neuro: AAO x 3, speech clear and appropriate, strength intact bilaterally 5/5, sensation intact and equal all extremities and dermatomes, no pronator drift Chest: equal rise and fall of the chest, no accessory muscle use, no heaves or thrills, Clear to auscultation, on room air, Cardiac: Regular rate and rhythm, telemetry reviewed, skin warm dry, cap refill <3 seconds, peripheral pulses +2 no JVD, no murmur, no JVD, no edema GI: NABS x 4 quadrants, soft, tender to palpation in epigastric, no rebound, guarding or tenderness : Spontaneously voiding, no pain, no CVA tenderness, Extremities: Normal inspection, no peripheral edema or erythema, calfs nontender to palpation Psych: Normal mood and affect Skin: no rash or erythema Results & Data Results & Data ([facility]) Vital Signs (Past 12 Hours) Vital Signs Temp Pulse Resp BP Pulse Ox 07/05/21 12:00 68 17 151/80 H 07/05/21 11:30 68 17 157/95 H 98 07/05/21 11:01 86 19 154/95 H 97 07/05/21 10:38 87 18 97 07/05/21 10:00 88 18 170/94 H 98 07/05/21 09:30 88 13 146/121 H 07/05/21 09:00 71 23 166/92 H 99 07/05/21 08:57 73 22 176/100 H 99 07/05/21 08:32 36.5 C 78 20 164/84 H 99 Laboratory Results Abnormal lab results 07/05/21 07/05/21 07/05/21 Range/Units 12:05 Unknown Unknown Hgb 13.0 L (14.0-18.0) g/dL Hct 40.0 L (42-52) % RDW Std Deviation 46.6 H (36.4-46.3) fL RDW Coeff of Dorothy 14.9 H (11.5-14.5) % MPV 10.7 H (7.4-10.4) fL Lymph # (Auto) 0.94 L (1.2-3.4) K/uL BUN/Creatinine Ratio 8.5 L (10-20) Glucose 136 H (70-99) mg/dl AST 14 L (15-37) U/L Ur Specific [place] > 1.045 H (1.000-1.030) Urine Ketones Trace H (Negative) Diagnostic Findings Abdomen/Pelvis CT 07/05/21 09:10 CT ANGIOGRAM OF THE CHEST; CT SCAN OF THE ABDOMEN AND PELVIS WITH IV CONTRAST CLINICAL HISTORY: Atypical chest pain. Nausea and vomiting. Upper abdominal pain. COMPARISON STUDY: Chest CT dated 07/07/2020. Abdominal CT dated 04/13/2021. Abdominal MRI dated 04/14/2021. TECHNIQUE: Following the IV administration of 120 of Optiray 320, CT angiogram of the chest is performed from the upper abdomen to the thoracic inlet utilizing the pulmonary embolus protocol. Images are reviewed in the axial, sagittal, coronal planes. 3-D MIPS images are created and assessed. Subsequently, CT scan of the abdomen and pelvis was performed from the lung bases to the proximal femora. Images are reviewed in the axial, sagittal, and coronal planes. IV contrast was administered without complication. A dose lowering technique was utilized adhering to the principles of ALARA. The examinations are modestly degraded by motion artifact. CT DOSE: 529.28 mGy.cm FINDINGS: CHEST: Thyroid: Imaged portions of the thyroid gland are normal in size and attenuation. Esophagus: There is postoperative change from esophageal resection and gastric pull-through procedure. Thoracic aorta: The thoracic aorta is normal in caliber and demonstrates standard 3-vessel arch anatomy. No dissection is seen. Pulmonary vasculature: The pulmonary trunk is normal in caliber. There are no filling defects identified in the main, lobar, or segmental pulmonary arteries to indicate pulmonary embolus. Heart: The heart is normal in size and without pericardial effusion. Lungs and pleural spaces: There is bibasilar scarring/atelectasis. No airspace consolidation or pleural effusion is identified. The trachea and central airways are clear. Mediastinum: There is no mediastinal lymphadenopathy. Mari: Clear. Axillae: There is no axillary lymphadenopathy. Bony thorax: No lytic or blastic lesions are identified. Mild degenerative change and hyperkyphosis is noted in the thoracic spine. Fusion hardware is seen in the lower cervical spine. ABDOMEN AND PELVIS: Liver: The contrast-enhanced liver is normal in size, contour, and attenuation. There is no intrahepatic or ductal dilatation. The hepatic veins and portal veins are patent. Gallbladder: Surgically absent noting clips in the gallbladder fossa. Spleen: Normal in size and attenuation. Pancreas: Unremarkable. Adrenal glands: Unremarkable. Kidneys: The contrast enhanced kidneys are normal in size and without hydronephrosis. The kidneys enhance symmetrically. A 3.5 cm lesion is again seen arising from the lower pole of left kidney. This remains concerning for renal neoplasm. Abdominal vasculature: The abdominal aorta is normal in course and caliber noting mild atherosclerotic calcification. Bowel: There is rectosigmoid fecal retention and moderate to severe constipation. No bowel obstruction is seen. The appendix is well-visualized and normal. Peritoneum: There is no intraperitoneal free air or abdominal ascites. Lymphadenopathy: None. Pelvic viscera: The prostate gland is surgically absent. The bladder is distended but otherwise normal in appearance. Skeletal structures: No lytic or blastic lesions are seen. IMPRESSION: 1. There is no evidence of pulmonary embolus in the main, lobar, or segmental pulmonary arteries. 2. There is no airspace consolidation or pleural effusion. 3. Again seen is postoperative change from esophageal resection and gastric pull-through procedure. 4. There is no bowel obstruction. 5. Moderate to severe constipation. 6. A 3.5 cm complex lesion is again seen in the lower pole of the left kidney end remains concerning for renal neoplasm. 7. Status post prostatectomy. 8. Additional findings as above. ACT 112: Negative or not required by law. Electronically signed by: Param Li M.D. 07/05/2021 10:52 AM Chest CTA 07/05/21 09:10 CT ANGIOGRAM OF THE CHEST; CT SCAN OF THE ABDOMEN AND PELVIS WITH IV CONTRAST CLINICAL HISTORY: Atypical chest pain. Nausea and vomiting. Upper abdominal pain. COMPARISON STUDY: Chest CT dated 07/07/2020. Abdominal CT dated 04/13/2021. Abdominal MRI dated 04/14/2021. TECHNIQUE: Following the IV administration of 120 of Optiray 320, CT angiogram of the chest is performed from the upper abdomen to the thoracic inlet utilizing the pulmonary embolus protocol. Images are reviewed in the axial, sagittal, coronal planes. 3-D MIPS images are created and assessed. Subsequently, CT scan of the abdomen and pelvis was performed from the lung bases to the proximal femora. Images are reviewed in the axial, sagittal, and coronal planes. IV contrast was administered without complication. A dose lowering technique was utilized adhering to the principles of ALARA. The examinations are modestly degraded by motion artifact. CT DOSE: 529.28 mGy.cm FINDINGS: CHEST: Thyroid: Imaged portions of the thyroid gland are normal in size and attenuation. Esophagus: There is postoperative change from esophageal resection and gastric pull-through procedure. Thoracic aorta: The thoracic aorta is normal in caliber and demonstrates standard 3-vessel arch anatomy. No dissection is seen. Pulmonary vasculature: The pulmonary trunk is normal in caliber. There are no filling defects identified in the main, lobar, or segmental pulmonary arteries to indicate pulmonary embolus. Heart: The heart is normal in size and without pericardial effusion. Lungs and pleural spaces: There is bibasilar scarring/atelectasis. No airspace consolidation or pleural effusion is identified. The trachea and central airways are clear. Mediastinum: There is no mediastinal lymphadenopathy. Mari: Clear. Axillae: There is no axillary lymphadenopathy. Bony thorax: No lytic or blastic lesions are identified. Mild degenerative change and hyperkyphosis is noted in the thoracic spine. Fusion hardware is seen in the lower cervical spine. ABDOMEN AND PELVIS: Liver: The contrast-enhanced liver is normal in size, contour, and attenuation. There is no intrahepatic or ductal dilatation. The hepatic veins and portal veins are patent. Gallbladder: Surgically absent noting clips in the gallbladder fossa. Spleen: Normal in size and attenuation. Pancreas: Unremarkable. Adrenal glands: Unremarkable. Kidneys: The contrast enhanced kidneys are normal in size and without hydronephrosis. The kidneys enhance symmetrically. A 3.5 cm lesion is again seen arising from the lower pole of left kidney. This remains concerning for renal neoplasm. Abdominal vasculature: The abdominal aorta is normal in course and caliber noting mild atherosclerotic calcification. Bowel: There is rectosigmoid fecal retention and moderate to severe constipation. No bowel obstruction is seen. The appendix is well-visualized and normal. Peritoneum: There is no intraperitoneal free air or abdominal ascites. Lymphadenopathy: None. Pelvic viscera: The prostate gland is surgically absent. The bladder is distended but otherwise normal in appearance. Skeletal structures: No lytic or blastic lesions are seen. IMPRESSION: 1. There is no evidence of pulmonary embolus in the main, lobar, or segmental pulmonary arteries. 2. There is no airspace consolidation or pleural effusion. 3. Again seen is postoperative change from esophageal resection and gastric pull-through procedure. 4. There is no bowel obstruction. 5. Moderate to severe constipation. 6. A 3.5 cm complex lesion is again seen in the lower pole of the left kidney end remains concerning for renal neoplasm. 7. Status post prostatectomy. 8. Additional findings as above. ACT 112: Negative or not required by law. Electronically signed by: Param Li M.D. 07/05/2021 10:52 AM Medications Administered Home Medications citalopram 20 mg tablet 20 mg PO QAM #90 tab 08/22/20 [Rx Confirmed 04/20/21] lisinopril 20 mg tablet 20 mg PO QAM #30 tab 09/25/20 [Rx Confirmed 04/20/21] buprenorphine 8 mg-naloxone 2 mg sublingual tablet 1 tab SUBLINGUAL BID 01/09/21 [History Confirmed 04/20/21] gabapentin 300 mg capsule 300 mg PO TID PRN #90 cap 02/05/21 [Rx Confirmed 04/20/21] fluoride (sodium) 1.1 % dental paste (PreviDent 5000 Booster Plus) 1 applic DEN BENNY HS 04/13/21 [History Confirmed 04/20/21] sodium sul 1.479 gram-potas ch 0.188 gram-magnes sul 0.225 gram tablet (Sutab) See Rx Instructions PO .COMPLEX #24 tab 04/13/21 [Rx Confirmed 04/20/21] metoclopramide HCl 10 mg tablet 10 mg PO Q6H PRN #30 tab 04/16/21 [Rx Confirmed 04/20/21] sucralfate 100 mg/mL oral suspension 1 g PO ACHS #400 ml 04/16/21 [Rx Confirmed 04/20/21] dexlansoprazole 60 mg capsule,biphase delayed release 60 mg PO DAILY #30 cap 06/11/21 [Rx] clonidine HCl 0.1 mg tablet 0.1 mg PO BID PRN #60 tab 06/19/21 [Rx] famotidine 40 mg tablet (Pepcid) 20 mg PO BID #90 tab 06/25/21 [Rx] Active Medications Lactated Ringer's (Lr) 1,000 mls @ 95 mls/hr IV .[id number] YANETH Stop: 08/04/21 12:29 Ondansetron HCl (Ondansetron Inj 2 Mg/Ml 2 Ml Vial) 4 mg IV Q6 PRN PRN Reason: nausea/vomiting Stop: 08/04/21 12:31 Discontinued Medications Droperidol (Droperidol 5 Mg/2 Ml Vial) 1.25 mg IV ONE STA Stop: 07/05/21 11:22 Last Admin: 07/05/21 11:30 Dose: 1.25 mg Documented by: [id number] Fentanyl Citrate (Fentanyl Citrate 100 Mcg/2 Ml Vial) 50 mcg IV NOW STA Stop: 07/05/21 09:11 Last Admin: 07/05/21 09:19 Dose: 50 mcg Documented by: [id number] Famotidine (Pepcid 20mg Iv Push) 20 mg in 5 mls @ 2.5 mls/min IV NOW STA Stop: 07/05/21 09:11 Last Admin: 07/05/21 09:19 Dose: 2.5 mls/min Documented by: [id number] Sodium Chloride (Nss 1000ml) 1,000 mls @ 999 mls/hr IV .Q1H1M ONE Stop: 07/05/21 10:10 Last Infusion: 07/05/21 10:42 Dose: 0 mls/hr Documented by: [id number] Admin: 07/05/21 09:19 Dose: 999 mls/hr Documented by: [id number] Pantoprazole Sodium 40 mg/ (Syringe) 10 mls @ 5 mls/min IV NOW ONE Stop: 07/05/21 09:11 Last Admin: 07/05/21 09:48 Dose: 5 mls/min Documented by: [id number] Acetaminophen (Ofirmev) 1,000 mg in 100 mls @ 400 mls/hr IV NOW STA Stop: 07/05/21 11:35 Last Infusion: 07/05/21 11:48 Dose: 0 mls/hr Documented by: [id number] Admin: 07/05/21 11:30 Dose: 400 mls/hr Documented by: [id number] Ioversol (Optiray 320 125ml) 120 ml IV ONCE ONE Stop: 07/05/21 10:27 Last Admin: 07/05/21 10:26 Dose: 120 ml Documented by: [id number] Metoclopramide HCl (Metoclopramide Hcl Inj 5 Mg/Ml 2 Ml Vial) 10 mg IV NOW STA Stop: 07/05/21 10:03 Last Admin: 07/05/21 10:13 Dose: 10 mg Documented by: [id number] Ondansetron HCl (Ondansetron Inj 2 Mg/Ml 2 Ml Vial) 4 mg IV NOW STA Stop: 07/05/21 08:36 Last Admin: 07/05/21 08:52 Dose: 4 mg Documented by: [id number] ECG Additional Comments: Normal sinus rhythm with sinus arrhythmia Left ventricular hypertrophy with repolarization abnormality Abnormal ECG When compared with ECG of 07-APR-2021 14:14, T wave amplitude has decreased in Anterior leads Code Status & VTE Plan Code Status CODE: FULL VTE: SCDs, Lovenox 40mg SQ q24 VTE Prophylaxis Plan VTE Prophylaxis will be ordered: Yes Supervising Physician Co-Signing Physician Notes During face to face encounter with patient, obtained a physical and history. My history and physcial examination did not differ from above. I reviewed above note and agree with it. I discussed plan with FÉLIX Flynn and the patient. All questions were answered. Patient will be admitted for nausea and vomiting. will provide antiemetics and iVF. PG Care Time/CCT Total # of Minutes Spent Total Time Spent with Patient: Total time spent is greater than 50% in coordination of care (as documented) at patient's floor/unit and/or counseling patient: Coding Level of Care Code INT OBSERVATION CARE 70M LVL 3 Diagnoses Nausea & vomiting R11.14 Vomiting type: bilious vomiting Abdominal pain R10.9 Abdominal location: unspecified location Renal mass N28.89 Opioid abuse F11.10 Hypertension I10 Hypertension type: unspecified Murry esophagus K22.719 Murry's esophagus type: with dysplasia of unspecified degree Prostate cancer C61 (1) Murry esophagus Murry's esophagus type: with dysplasia of unspecified degree Qualified Code(s): K22.719 - Murry's esophagus with dysplasia, unspecified (2) Nausea & vomiting Vomiting type: bilious vomiting Qualified Code(s): R11.14 - Bilious vomiting (3) Abdominal pain Abdominal location: unspecified location Qualified Code(s): R10.9 - Unspecified abdominal pain (4) Hypertension Hypertension type: unspecified Qualified Code(s): I10 - Essential (primary) hypertension
[2021-07-05] MEDS ORDERED: cloNIDine HCL 0.1 MG TAB PO PRN (13:26)
[2021-07-05] MEDS ORDERED: GABAPENTIN 300 MG CAP PO PRN (13:26)
[2021-07-05] MEDS: LACTATED RINGER'S 1,000 ML IV SCH ×2 (15:16→23:38)
[2021-07-05] MEDS ORDERED: ACETAMINOPHEN 325 MG TAB PO PRN (15:39)
[2021-07-05] MEDS: MAGNESIUM HYDROXIDE SUSP 30 ML UDC PO SCH ×2 (15:53→20:21)
[2021-07-05] MEDS: ENOXAPARIN INJ 40 MG/0.4 ML SYR SQ SCH (15:54)
[2021-07-05] MEDS: SENNOSIDES 8.8 MG/5 ML UDC PO SCH (15:54)
[2021-07-05] MEDS: SUCRALFATE 1 GM/10 ML UDC PO SCH ×2 (17:57→20:21)
[2021-07-05] MEDS ORDERED: HYDROmorphone INJ 0.5 MG/0.5 ML SYR IV STA (18:27)
--- NOTE | 2021-07-05 18:30 | Electrocardiogram Report ---
Test Reason : Blood Pressure : / mmHG Vent. Rate : 063 BPM Atrial Rate : 063 BPM P-R Int : 114 ms QRS Dur : 096 ms QT Int : 398 ms P-R-T Axes : 034 022 -02 degrees QTc Int : 407 ms Normal sinus rhythm with sinus arrhythmia Left ventricular hypertrophy with repolarization abnormality Abnormal ECG When compared with ECG of 07-APR-2021 14:14, T wave amplitude has decreased in Anterior leads Confirmed by Mike Vergara ([id number]) on 07/05/2021 6:30:10 PM Referred By: Confirmed By:Jose Vergara
[2021-07-05] MEDS: METOCLOPRAMIDE HCL INJ 5 MG/ML 2 ML VIAL IV PRN (20:20)
[2021-07-05] MEDS: PANTOprazole 40 MG in SYRINGE 0 ML IV SCH (20:20)
[2021-07-05] MEDS: BUPRENORPHINE/NALOXONE 8/2 MG TAB SL SCH (20:21)
[2021-07-06 06:11] LABS: Basophils # (auto) 0.03 K/uL (0-0.2); Basophils % (auto) 0.3 %; Hematocrit (blood only) 37.4 % (42-52); Hemoglobin 12.3 g/dL (14.0-18.0); Immature Granulocytes # (auto) 0.02 K/uL (0.00-0.02); Immature Granulocytes % (auto) 0.2 %; Lymphocytes # (auto) 1.85 K/uL (1.2-3.4); Lymphocytes % (auto) 17.4 %; Mean Corpuscular Hemoglobin 27.3 pg (25-34); Mean Corpuscular Hgb Conc 32.9 g/dL (32-36); Mean Corpuscular Volume 82.9 fL (80-100); Mean Platelet Volume 10.5 fL (7.4-10.4); Neutrophils # (auto) 7.04 K/uL (1.4-6.5); Neutrophils % (auto) 66.1 %; Platelet Count 238 K/uL (130-400); RDW Coefficient of Variation 15.1 % (11.5-14.5); RDW Standard Deviation 45.6 fL (36.4-46.3); Red Blood Count 4.51 M/uL (4.7-6.1); White Blood Count 10.64 K/uL (4.8-10.8)
[2021-07-06 06:37] LABS: BUN Creatinine Ratio 16.5 (10-20); Calcium 8.6 mg/dl (8.5-10.1); Creatinine Clr Calc Pharmacy 99.4 ml/min; Est GFR (African American) 114.9 ml/min; Est GFR (Non-African American) 99.2 ml/min; Magnesium 2.1 mg/dl (1.8-2.4)
[2021-07-06] MEDS: METOCLOPRAMIDE HCL INJ 5 MG/ML 2 ML VIAL IV PRN ×2 (07:59→23:55)
[2021-07-06] MEDS: SUCRALFATE 1 GM/10 ML UDC PO SCH ×4 (07:59→20:34)
[2021-07-06] MEDS: PANTOprazole 40 MG in SYRINGE 0 ML IV SCH ×2 (09:03→20:35)
[2021-07-06] MEDS: lisinopril 20 MG TAB PO SCH (09:03)
[2021-07-06] MEDS: FAMOTIDINE 20 MG in SYRINGE 3 ML IV SCH (09:03)
[2021-07-06] MEDS: MAGNESIUM HYDROXIDE SUSP 30 ML UDC PO SCH ×2 (09:03→20:33)
[2021-07-06] MEDS: CITALOPRAM 20 MG TAB PO SCH (09:04)
[2021-07-06] MEDS: SENNOSIDES 8.8 MG/5 ML UDC PO SCH (09:04)
[2021-07-06] MEDS: ENOXAPARIN INJ 40 MG/0.4 ML SYR SQ SCH (09:04)
[2021-07-06] MEDS: BUPRENORPHINE/NALOXONE 8/2 MG TAB SL SCH ×2 (09:13→20:32)
[2021-07-06] MEDS: LACTATED RINGER'S 1,000 ML IV SCH ×2 (10:04→20:33)
--- NOTE | 2021-07-06 10:08 | Gastrointestinal Consultation ---
Date of Consultation July 06, 2021 Assessment & Plan (1) Nausea & vomiting: (2) Abdominal pain: (3) Constipation: Patient is a 55 yo male with chronic nausea, vomiting, & epigastric pain suspicious for gastroparesis considering his chronic Suboxone use. He unfortunately has demonstrated a history of medical noncompliance with the recommended plan of care over the past 1+ year in regards to pursuing a gastric emptying study. My recommendation at the present time is that there are no acute GI interventions to be made. Patient should continue Protonix 40 mg BID, Pepcid 20 mg BID, & Carafate 1 gm four times daily. He should more aggressively treat his constipation with Miralax 17 gm 1-2 times daily, utilize prn anti-emetics, and ultimately follow through with a gastric emptying study as recommended on numerous other occasions. Failure to do so has resulted in frequent readmissions and unnecessary medical testing. I did candidly discuss the issues at hand with the patient. The patient expresses frustration with frequent admissions. I emphasized that complying with outpatient evaluation will help to identify any underlying issues and can ultimately prevent readmissions. Patient would like to advance diet and I agree with this. We will sign off at this time, but our office will again be in contact with the patient to arrange an outpatient gastric emptying study and subsequent office follow-up with Tala SALGADO. Supervising Physician Co-Signing Physician Notes Agree with SHAWANDA Pardo as above Abd: Soft, NT, ND, +BS Continue current therapy and supportive care History of Present Illness Reason for Consultation: Abdominal pain, nausea, & vomiting Attending Physician: Jose Daniel Aparicio History of Present Illness Patient is a 55 yo male with a distant history of esophageal cancer with esophagectomy, Murry's Esophagus, and chronic suboxone use who presents for another admission for chronic abdominal pain, nausea & vomiting. The patient is typically followed by Tala SALGADO. Patient comes to the emergency room today for complaints of 2 day history of loss of appetite and uncontrolled nausea and vomiting. He denies triggers for his symptoms. No GI bleeeding. Nausea & vomiting associated with epigastric pain. No further emesis at present. He is constipated. Patient has had 7 ER visits and 6 hospitalizations for this same issue since 2019 and no inpatient measures have changed the outcome. He has had 2 CT scans in the past 3 months along, a normal CT in 2019, and an abdominal MRI that were unremarkable for acute GI issues. He has had 2 unremarkable barium swallows in the past 2 years and 5 EGDs with biopsies performed by 3 different gastroenterologists without acute abnormalities to explain his symptoms. He has been prescribed antifungals, PPIs, H2 blockers, Carafate, Reglan & antiemetics. Labs do not indicate any alarming findings. Most notably, the patient has been told for approximately 19 months to have a gastric emptying study to complete his GI work-up but he has repeatedly declined to schedule and once scheduled then subsequently cancelled this testing. CT scan this admission indicates no acute GI issues with the exception of constipation. Patient does have CT findings concerning for a renal neoplasm. Allergies Allergy/AdvReac Type Severity Reaction Status Date / Time No Known Allergies Allergy Verified 07/05/21 13:03 Home Medications Medication Instructions Recorded Confirmed Type citalopram 20 mg tablet 20 mg PO QAM #90 tab 08/22/20 07/05/21 Rx lisinopril 20 mg tablet 20 mg PO QAM #30 tab 09/25/20 07/05/21 Rx buprenorphine 8 mg-naloxone 2 mg 1 tab SUBLINGUAL BID 01/09/21 07/05/21 History sublingual tablet gabapentin 300 mg capsule 300 mg PO TID PRN #90 cap 02/05/21 07/05/21 Rx fluoride (sodium) 1.1 % dental 1 applic DENTAL HS 04/13/21 07/05/21 History paste (PreviDent 5000 Booster Plus) metoclopramide HCl 10 mg tablet 10 mg PO Q6H PRN #30 tab 04/16/21 07/05/21 Rx sucralfate 100 mg/mL oral 1 g PO ACHS #400 ml 04/16/21 07/05/21 Rx suspension dexlansoprazole 60 mg 60 mg PO DAILY #30 cap 06/11/21 07/05/21 Rx capsule,biphase delayed release clonidine HCl 0.1 mg tablet 0.1 mg PO BID PRN #60 tab 06/19/21 07/05/21 Rx famotidine 40 mg tablet (Pepcid) 20 mg PO BID #90 tab 06/25/21 07/05/21 Rx ondansetron HCl 4 mg tablet 4 mg PO Q8 PRN 07/05/21 07/05/21 History Patient History Medical History Abdominal pain Recently admitted for abdominal pain- pain improved since discharged on 01/03/21 Abnormal weight loss 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 dx'ed with esophageal cancer in 2007 EGD in 10/2020 did show Barretts with esophagitis and ulcers - put on PPI Candidal esophagitis S/p treatment after EGD Esophageal cancer 2007 s/p chemo and radiation Fissure, anal Pt unsure if still present- getting repeat colonoscopy in the future Fracture of multiple thoracic vertebrae 25 years ago Gastro-esophageal reflux disease with esophagitis Uncontrolled Hepatitis C [id number] Hypertension Lumbago Restless leg No current issues 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 Withdrawal from opioids Was on increased opioids in the past secondary to chronic back pain- weaned off pain medications- was taking herbal supplement (Kraton)= now using Suboxone to taper off supplement Surgical History History of anesthesia reaction pt states he woke up during 2 EGD procedures and during shoulder sx History of colonoscopy History of cystoscopy History of esophagectomy 2007 History of esophagogastroduodenoscopy (EGD) recent 10/31/2020 History of repair of rotator cuff right and left shoulder History of right knee surgery meniscectomy Hx laparoscopic cholecystectomy Status post surgery neck surgery with hardware Family History Father Hypertension Myocardial infarction Coronary heart disease Mother Cancer Skin and Lung Brother Hypertension Other No family history of adverse response to anesthesia Denies family history of Ovarian cancer Prostate cancer Breast cancer Colorectal cancer Social History Smoking Status: Former smoker Tobacco Type: Cigarettes Years Smoked: 10; Second Hand Exposure: No; Hx Alcohol Use: No Hx Substance Use: No Preferred Language: Persian Communication Ability: Effective Visual Impairment: No Limitations Hearing Ability: Normal Quality Assurance/R&D Lab Technician Required: No Beliefs That Will Affect Care: None marital status: Current Living Situation: Spouse current occupational status: employed 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 Feels Safe at Home: Yes Childhood Exposure to Second-Hand Smoke: Yes caffeine: Yes Dental Care, Regularly: Yes Physical Activity Frequency: Daily Seatbelt Use: always Sunscreen Use: No Assistive Devices: None Review of Systems Constitutional: no fever and no chills Respiratory: no cough and no dyspnea Cardiovascular: no chest pain Gastrointestinal: + abdominal pain, + nausea, + vomiting and + constipation Integumentary: no problem reported Physical Exam Constitutional: WD/WN, vitals as above Respiratory: normal respiratory effort, lungs clear to auscultation Cardiovascular: RRR, no murmur, no edema Gastrointestinal (Abdomen): normal bowel sounds, soft, nontender, no hepatosplenomegaly Musculoskeletal: Head/Neck/Chest: normocephalic Psychiatric: Orientation: alert and oriented x 3 Results & Data ([facility]) Vital Signs (Past 12 Hours) Vital Signs Temp Pulse Resp BP Pulse Ox 07/06/21 07:37 37.1 C 75 16 133/70 96 07/06/21 01:13 37.1 C 07/05/21 22:32 37.8 C H 80 17 147/83 H 95 PG Care Time/CCT Total # of Minutes Spent Total Time Spent with Patient: Total time spent is greater than 50% in coordination of care (as documented) at patient's floor/unit and/or counseling patient: Coding Level of Care Code 94435 Inpt Consult Level 4 Diagnoses Nausea & vomiting R11.2 Vomiting Intractability: intractable Vomiting type: unspecified Abdominal pain R10.13 Abdominal location: epigastric Constipation K59.00 (1) Nausea & vomiting Vomiting Intractability: intractable Vomiting type: unspecified Qualified Code(s): R11.2 - Nausea with vomiting, unspecified (2) Abdominal pain Abdominal location: epigastric Qualified Code(s): R10.13 - Epigastric pain
[2021-07-06] MEDS ORDERED: POLYETHYLENE (MIRALAX) 17 GM PACK PO PRN (19:23)
[2021-07-06] MEDS: POLYETHYLENE (MIRALAX) 17 GM PACK PO PRN (20:33)
--- NOTE | 2021-07-06 20:47 | Hospitalist Progress Note ---
Date of Service July 06, 2021 Assessment & Plan (1) Nausea & vomiting: Plan: Acute on chronic - patient denies noncompliance with dietary/fuid intake and compliance with medicaitons - might be secondary to constipation - Continue Protonix IV and Famotidine IV - Continue Carfate - If N/V controlled can add back Duloxetine - Zofran and Reglan for nausea 07/06 Patient is feeling much better today. Will initiate soft diet. (2) Abdominal pain: Plan: constipation vs. GERD vs. ulceration - treat constipation- ducousate/senna BID, MOM 30ml BID - IVF - As above, follow clinically - LFT and biliary labs normal, WBC normal (3) Renal mass: Plan: As per HPI- incidental finding from previous CT scan and admission - followed up with urology and hematology oncology - patient reports scheduled for surgery in (4) Opioid abuse: Plan: Continue suboxone - If pain controll needed following admission consider dialaudid - conservative approach for now (5) Hypertension: Plan: Continue Lisinopril- follow fluid volume status and renal indices (6) Murry esophagus: Plan: History as per HPI, chronic esophagitis - if symptoms uncontrolled can add in nystatin swish and spit (7) Prostate cancer: Plan: S/p robotic assisted laparoscopic assisted prostatectomy and pelvic lymph node dissection - No acute LUTS at this time Admission and Anticipated Discharge Date Admission Date: July 05, 2021 Subjective Patient reports having less nausea today. Is interested in eating. Review of Systems Review of Systems: All systems reviewed & are unremarkable except as noted in HPI & below Physical Exam Physical Exam: General: drowsy but awakens easily Head: Normocephalic, atraumatic ENT: PERRL, EOMI, no pharyngeal exudate, mucous membranes moist Neuro: AAO x 3, speech clear and appropriate, strength intact bilaterally 5/5, sensation intact and equal all extremities and dermatomes, no pronator drift Chest: equal rise and fall of the chest, no accessory muscle use, no heaves or thrills, Clear to auscultation, on room air, Cardiac: Regular rate and rhythm, telemetry reviewed, skin warm dry, cap refill <3 seconds, peripheral pulses +2 no JVD, no murmur, no JVD, no edema GI: NABS x 4 quadrants, soft, tender to palpation in epigastric, no rebound, guarding or tenderness : Spontaneously voiding, no pain, no CVA tenderness, Extremities: Normal inspection, no peripheral edema or erythema, calfs nontender to palpation Psych: Normal mood and affect Skin: no rash or erythema Results & Data Results & Data ([facility]) Vital Signs (Past 12 Hours) Vital Signs Temp Pulse Resp BP Pulse Ox 07/06/21 14:58 37.1 C 74 18 142/86 H 94 PG Care Time/CCT Total # of Minutes Spent Total Time Spent with Patient: Total time spent is greater than 50% in coordination of care (as documented) at patient's floor/unit and/or counseling patient: Coding Level of Care Code 54177 Subseq Hosp Care Lvl 2 Diagnoses Nausea & vomiting R11.14 Vomiting type: bilious vomiting Abdominal pain R10.13 Abdominal location: epigastric Renal mass N28.89 Opioid abuse F11.10 Hypertension I10 Hypertension type: unspecified Murry esophagus K22.719 Murry's esophagus type: with dysplasia of unspecified degree Prostate cancer C61 (1) Murry esophagus Murry's esophagus type: with dysplasia of unspecified degree Qualified Code(s): K22.719 - Murry's esophagus with dysplasia, unspecified (2) Nausea & vomiting Vomiting type: bilious vomiting Qualified Code(s): R11.14 - Bilious vomiting (3) Abdominal pain Abdominal location: epigastric Qualified Code(s): R10.13 - Epigastric pain (4) Hypertension Hypertension type: unspecified Qualified Code(s): I10 - Essential (primary) hypertension
[2021-07-07] MEDS: LACTATED RINGER'S 1,000 ML IV SCH (05:38)
[2021-07-07] MEDS: FAMOTIDINE 20 MG in SYRINGE 3 ML IV SCH (08:32)
[2021-07-07] MEDS: PANTOprazole 40 MG in SYRINGE 0 ML IV SCH (08:32)
[2021-07-07] MEDS: METOCLOPRAMIDE HCL INJ 5 MG/ML 2 ML VIAL IV PRN (08:32)
[2021-07-07] MEDS: SUCRALFATE 1 GM/10 ML UDC PO SCH ×2 (08:32→11:08)
[2021-07-07] MEDS: POLYETHYLENE (MIRALAX) 17 GM PACK PO PRN (08:32)
[2021-07-07] MEDS: MAGNESIUM HYDROXIDE SUSP 30 ML UDC PO SCH (09:12)
[2021-07-07] MEDS: ENOXAPARIN INJ 40 MG/0.4 ML SYR SQ SCH (09:12)
[2021-07-07] MEDS: BUPRENORPHINE/NALOXONE 8/2 MG TAB SL SCH (09:12)
[2021-07-07] MEDS: lisinopril 20 MG TAB PO SCH (09:13)
[2021-07-07] MEDS: CITALOPRAM 20 MG TAB PO SCH (09:13)
[2021-07-07] MEDS: SENNOSIDES 8.8 MG/5 ML UDC PO SCH (09:14)
[2021-07-07 09:22] LABS: Basophils # (auto) 0.05 K/uL (0-0.2); Eosinophils # (auto) 0.07 K/uL (0-0.5); Eosinophils % (auto) 1.4 %; Hematocrit (blood only) 37.2 % (42-52); Hemoglobin 11.9 g/dL (14.0-18.0); Immature Granulocytes # (auto) 0.01 K/uL (0.00-0.02); Immature Granulocytes % (auto) 0.2 %; Lymphocytes # (auto) 1.42 K/uL (1.2-3.4); Lymphocytes % (auto) 27.6 %; Mean Corpuscular Hemoglobin 27.5 pg (25-34); Mean Corpuscular Volume 85.9 fL (80-100); Mean Platelet Volume 10.8 fL (7.4-10.4); Monocytes % (auto) 13.6 %; Neutrophils # (auto) 2.89 K/uL (1.4-6.5); Neutrophils % (auto) 56.2 %; Platelet Count 233 K/uL (130-400); RDW Coefficient of Variation 14.7 % (11.5-14.5); RDW Standard Deviation 46.5 fL (36.4-46.3); Red Blood Count 4.33 M/uL (4.7-6.1); White Blood Count 5.14 K/uL (4.8-10.8)
[2021-07-07 09:46] LABS: BUN Creatinine Ratio 13.9 (10-20); Calcium 8.7 mg/dl (8.5-10.1); Creatinine Clr Calc Pharmacy 86.5 ml/min; Est GFR (African American) 106.6 ml/min; Magnesium 2.1 mg/dl (1.8-2.4); Potassium 4.4 mmol/L (3.5-5.1)
--- NOTE | 2021-07-08 08:00 | Discharge Summary ---
Date of Service July 07, 2021 Admission HPI Per Admitting Provider 55 YOM with past medical history of: Esophageal cancer treated with esophagectomy with pull through, chronic esophagitis with Murry, prostatectomy, renal mass 3.4 cm- followed up with Urology for concern of kathy dorsey and is getting this removed in June. Patient comes to the emergency room today for complaints of 2 day history of loss of appetite and uncontrolled nausea and vomiting. The patient last ate yesterday at dinner and endorses that he just had some vegetable soup. He denies drinking any coffee or soda as this is his normal offending trigger. Patient states he has been drinking water and hot tea, but mostly just water over the past 24 hours. He endorses that his emesis is mostly green, but with small amount of brown in it this morning. These episodes are associated with abdominal discomfort to his epigastrium area that is sharp ache, he received 50mcg of Fentanyl in the EMD as he is on Suboxone at home. His last bout of emesis was about an hour ago he reports, took his medications this morning and feels he kept them down. His last bowel movement he reports was about a week ago, but was normal. Patient is closely followed by GI, his last EGD was in March with normal stomach and normal duodenum, he had his anastomosis site biopsied that was negative for dysplasia and malignancy, but consistent with chronic esophagitis with his known Murry's. In the EMD the patient received Zofran 4mg, pepcid IV, Protonix IV, Reglan, and Droperidol 1.25mg IV. He also received 1 liter of 0.9% saline. He also had a CT scan of the abdomen; that shows moderate to severe constipation. The patient is feeling a little bit better but still remains with nausea and abdominal pain. Patient reports he has not received his COVID vaccine and his COVID test on admission is NEGATIVE Principal Diagnosis nausea and vomiting Discharge Exam General: Awake, feeling well. Head: Normocephalic, atraumatic ENT: PERRL, EOMI, no pharyngeal exudate, mucous membranes moist Neuro: AAO x 3, speech clear and appropriate, strength intact bilaterally 5/5, sensation intact and equal all extremities and dermatomes, no pronator drift Chest: equal rise and fall of the chest, no accessory muscle use, no heaves or thrills, Clear to auscultation, on room air, Cardiac: Regular rate and rhythm, telemetry reviewed, skin warm dry, cap refill <3 seconds, peripheral pulses +2 no JVD, no murmur, no JVD, no edema GI: NABS x 4 quadrants, soft, tender to palpation in epigastric, no rebound, guarding or tenderness : Spontaneously voiding, no pain, no CVA tenderness, Extremities: Normal inspection, no peripheral edema or erythema, calfs nontender to palpation Psych: Normal mood and affect Skin: no rash or erythema Discharge Data Allergies Allergy/AdvReac Type Severity Reaction Status Date / Time No Known Allergies Allergy Verified 07/05/21 13:03 Consultations 07/05/21 12:09 ED Decision to Admit Stat 07/05/21 15:42 Consult Gastroenterology Routine Ordered Studies 07/05/21 09:10 CT abd pelvis IV con only Stat CT angio chest PE protocol Stat Hospital Course (1) Nausea & vomiting: Acute on chronic - patient denies noncompliance with dietary/fuid intake and compliance with medicaitons - might be secondary to constipation - Continue Protonix IV and Famotidine IV - Continue Carfate - If N/V controlled can add back Duloxetine - Zofran and Reglan for nausea 07/06 Patient is feeling much better today. Will initiate soft diet. 07/07 Patient continues to do well. Tolerating diet. Please continue: Protonix 40 mg BID Pepcid 20 mg BID & Carafate 1 gm four times daily. Recommend to aggressively treat your constipation with Miralax 17 gm 1-2 times Please continue: (2) Abdominal pain: constipation vs. GERD vs. ulceration - treat constipation- ducousate/senna BID, MOM 30ml BID - IVF - As above, follow clinically - LFT and biliary labs normal, WBC normal (3) Renal mass: As per HPI- incidental finding from previous CT scan and admission - followed up with urology and hematology oncology - patient reports scheduled for surgery in (4) Opioid abuse: Continue suboxone - If pain controll needed following admission consider dialaudid - conservative approach for now (5) Hypertension: Continue Lisinopril- follow fluid volume status and renal indices (6) Murry esophagus: History as per HPI, chronic esophagitis - if symptoms uncontrolled can add in nystatin swish and spit (7) Prostate cancer: S/p robotic assisted laparoscopic assisted prostatectomy and pelvic lymph node dissection - No acute LUTS at this time Total Time Total Time Spent Total Time Spent (In Minutes): 32 Discharge Plan Discharge Items Patient Disposition: Home - Self-Care Reason For Visit: VOMITING Discharge Diagnosis: vomiting Activity: Resume your previous activity Non-emergency contact: Primary Care Provider Call non-emergency contact if: you have any medication questions Follow-up/Referrals: Rafiq Boucher III, MD [Primary Care Provider] - Addtl Attending Provider Instructions: Please continue: Protonix 40 mg BID Pepcid 20 mg BID & Carafate 1 gm four times daily. Recommend to aggressively treat your constipation with Miralax 17 gm 1-2 times Please follow through with a gastric emptying study as recommended on numerous other occasions. Complying with outpatient evaluation will help to identify any underlying issues and may ultimately prevent readmissions. Pending Studies at Discharge: No Stand-Alone Forms: My [employer], Smoking Cessation Medications and DC Order Prescriptions: New polyethylene glycol 3350 [Miralax] 17 gram Powder In Packet 17 g PO DAILY Qty: 100 RF: 0 pantoprazole [Protonix] 40 mg tablet,delayed release (DR/EC) 40 mg PO BID Qty: 60 RF: 0 Continued citalopram 20 mg tablet 20 mg PO QAM Qty: 90 RF: 3 lisinopril 20 mg tablet 20 mg PO QAM Qty: 30 RF: 11 gabapentin 300 mg capsule 300 mg PO TID PRN (Reason: Pain) Qty: 90 RF: 5 dexlansoprazole 60 mg capsule,biphase delayed releas 60 mg PO DAILY Qty: 30 RF: 2 clonidine HCl 0.1 mg tablet 0.1 mg PO BID PRN (Reason: Anxiety) Qty: 60 RF: 1 buprenorphine-naloxone 8-2 mg Tablet, Sublingual 1 tab SUBLINGUAL BID RF: 0 fluoride (sodium) [PreviDent 5000 Booster Plus] 1.1 % paste 1 applic dental HS RF: 0 metoclopramide HCl 10 mg tablet 10 mg PO Q6H PRN (Reason: nausea and vomiting) Qty: 30 RF: 0 ondansetron HCl 4 mg tablet 4 mg PO Q8 PRN (Reason: Nausea) RF: 0 sucralfate 100 mg/mL Suspension 1 g PO ACHS Qty: 400 RF: 0 famotidine [Pepcid] 40 mg tablet 20 mg PO BID Qty: 90 RF: 3 Discharge Orders: Discharge Order (Routine); Ordered 07/07/21 Ordered By: Jose Daniel Aparicio Admission Data Admit Date/Time: 07/05/21 12:15 Attending Provider: Jose Daniel Aparicio Admit Provider: Jose Daniel Aparicio Primary Care Provider: Rafiq Boucher III Other Providers: Jose Daniel Aparicio ; Vishal Herman ; Tala Christine ; Yu Mustafa ; Jhonny Najera Other Interventions: Discharge Summary Assessment (RN) Last Done: 07/07/21 14:53 Coding Level of Care Code 84451 OBS Care - Discharge Diagnoses Nausea & vomiting R11.14 Vomiting type: bilious vomiting Abdominal pain R10.13 Abdominal location: epigastric Renal mass N28.89 Opioid abuse F11.10 Hypertension I10 Hypertension type: unspecified Murry esophagus K22.719 Murry's esophagus type: with dysplasia of unspecified degree Prostate cancer C61
== END 2021-07-07 15:55 | disposition home or self-care (01) ==
LOC: 3N 08:15 → ED 08:15 → 3N 12:55

== ENCOUNTER 2021-07-11 07:48 | Observation (INO) ==
[2021-07-11 08:26] LABS: Basophils # (auto) 0.03 K/uL (0-0.2); Basophils % (auto) 0.3 %; Eosinophils # (auto) 0.04 K/uL (0-0.5); Eosinophils % (auto) 0.5 %; Hematocrit (blood only) 39.5 % (42-52); Hemoglobin 12.8 g/dL (14.0-18.0); Immature Granulocytes # (auto) 0.02 K/uL (0.00-0.02); Immature Granulocytes % (auto) 0.2 %; Lymphocytes # (auto) 1.01 K/uL (1.2-3.4); Lymphocytes % (auto) 11.7 %; Mean Corpuscular Hemoglobin 27.5 pg (25-34); Mean Corpuscular Hgb Conc 32.4 g/dL (32-36); Mean Corpuscular Volume 84.8 fL (80-100); Mean Platelet Volume 10.9 fL (7.4-10.4); Monocytes # (auto) 0.92 K/uL (0.11-0.59); Monocytes % (auto) 10.7 %; Neutrophils % (auto) 76.6 %; Platelet Count 273 K/uL (130-400); RDW Coefficient of Variation 15.2 % (11.5-14.5); RDW Standard Deviation 46.8 fL (36.4-46.3); Red Blood Count 4.66 M/uL (4.7-6.1); White Blood Count 8.62 K/uL (4.8-10.8)
[2021-07-11 08:45] LABS: Albumin Level 3.9 gm/dl (3.4-5.0); BUN Creatinine Ratio 11.8 (10-20); Calcium 9.3 mg/dl (8.5-10.1); Est GFR (Non-African American) 80.3 ml/min; Potassium 3.8 mmol/L (3.5-5.1)
[2021-07-11 08:47] LABS: Albumin Globulin Ratio 1.1 (0.9-2); Bilirubin,Total 0.5 mg/dl (0.2-1); Globulin 3.6 gm/dl (2.5-4.0); Total Protein 7.5 gm/dl (6.4-8.2)
[2021-07-11] MEDS ORDERED: diphenhydrAMINE 50 MG/ML VIAL IV STA (08:48)
[2021-07-11] MEDS ORDERED: METOCLOPRAMIDE HCL INJ 5 MG/ML 2 ML VIAL IV STA (08:48)
[2021-07-11] MEDS ORDERED: D5W AND NSS 1,000 ML IV STA (08:48)
[2021-07-11] MEDS ORDERED: FAMOTIDINE 20MG IV PUSH 20 MG/5 ML SYR IV STA (08:48)
[2021-07-11] MEDS ORDERED: ACETAMINOPHEN 1,000 MG/100 ML VIAL IV STA (08:51)
--- NOTE | 2021-07-11 09:16 | XRay Report ---
KUB HISTORY: Acute nausea and vomiting with generalized abdominal pain n/v abd pain COMPARISON: CT abdomen and pelvis 07/05/2021 FINDINGS: Nonobstructive bowel gas pattern. Moderate fecal retention. Cholecystectomy. No renal calc apollo. No ureteral calculi. No pneumoperitoneum or pneumatosis. No fracture. IMPRESSION: 1. Nonobstructive bowel gas pattern. 2. Moderate fecal retention. 3. Cholecystectomy. ACT 112: Negative or not required by law. The above report was generated using voice recognition software. It may contain grammatical, syntax o r spelling errors. Electronically signed by: Mustapha Madrid M.D. 07/11/2021 9:14 AM
--- NOTE | 2021-07-11 09:21 | XRay Report ---
XR chest 1V portable CLINICAL HISTORY: Abdominal pain, nausea and vomiting. COMPARISON STUDY: Chest CT July 05, 2021. FINDINGS: Postoperative findings within the cervical spine as well as the mediastinum are incidentall y noted. Cardiac size is normal. There is no evidence for pulmonary edema. No consolidation is identi fied. IMPRESSION: No acute cardiopulmonary findings. No change in appearance of the chest. ACT 112: Negative or not required by law. Electronically signed by: Christopher Beverly M.D. 07/11/2021 9:20 AM
[2021-07-11 09:25] LABS: Bilirubin Direct 0.2 mg/dl (0-0.2); Magnesium 2.6 mg/dl (1.8-2.4); Phosphorus 3.8 mg/dl (2.5-4.9); Troponin I < 0.015 ng/ml (0-0.045)
[2021-07-11 09:37] LABS: T4 Free Thyroxine 0.96 ng/dl (0.8-1.6)
--- NOTE | 2021-07-11 09:48 | Emergency Department Note ---
Impression & Plan Intractable nausea and vomiting, Dehydration, Constipation ED Provider Note NAME: ERENDIRA OTT AGE: 55 SEX: M ARRIVES VIA: Walk-In INFORMANT: Patient, ED PROVIDER(S): Heriberto Morocho MD CHIEF COMPLAINT: Nausea vomiting. PLAN: Disposition: Admit MEDICAL DECISION MAKING: The patient is a pleasant 55 y/o gentlman with a past medical history of prior opioid abuse on Suboxone though he reports it is related to weaning off of kratom, depression, tobacco abuse, hypertension, prostate cancer who presents emergency department with ongoing intractable nausea and vomiting after being admitted to the hospital last week for similar symptoms. The patient had a CT scan on 07/05 that demonstrated no PE or pneumonia on CT of the chest and ot herwise demonstrated postoperative change from esophageal resection and gastric pull-through. Note was made of moderate to severe constipation. A complex lesion in the lower pole of left kidney was again seen, initially identified in March 2021 and further characterized on MRI. On arrival the patient is uncomfortable no acute distress, afebrile stable vital signs. He has mild epigastric discomfort without discrete tenderness. WBC and platelets within normal limits. H/H similar to prior values. Chemistry without acidosis. LFTs and remarkable. Troponin negative/undetectable. Lipase is not elevated. KUB was performed and demonstrates nonobstructive bowel gas pattern. Evidence of moderate constipation is noted. Upon reevaluation patient denied any improvement after IV fluid hydration, famotidine, diphenhydramine, Reglan. He reports recurrent episode of emesis. Thus, given the patient's persistent symptoms he agrees with plan for admission. Case was discussed with Dr. Maddox, [facility] hospitalist, who will evaluate the patient for admission. Triage Nursing notes reviewed and agree them. Prior medical records reviewed Vital Signs: reviewed and remarkable for no significant abnormalities Differential diagnosis: Appendicitis, testicular torsion, infections, diverticulitis, UTI, obstruction, mesenteric ischemia, aortic pathology, inflammatory bowel disease, renal colic, PUD, pancreatitis, biliary pathology, hernia, volvulus, constipation, as well as other pathologies. ER treatment provided: See below. Diagnostics interpreted by me: ECG: Normal sinus rhythm with sinus arrhythmia, 63 bpm, no ectopy, Left ventricular hypertrophy with repolarization abnormality, no overt ST elevation or depression. Cardiac Monitoring: An order for continuous cardiac monitoring was placed and demonstrated normal sinus rhythm with sinus arrhythmia, 63 bpm, no ectopy. Laboratory studies: See below Imaging studies: See below HPI: The patient is a pleasant 55 y/o gentlman with a past medical history of prior opioid abuse on Suboxone though he reports it is related to weaning off of kratom, depression, tobacco abuse, hypertension, prostate cancer who presents emergency department with ongoing intractable nausea and vomiting after being admitted to the hospital last week for similar symptoms. The patient had a CT s can on 07/05 that demonstrated no PE or pneumonia on CT of the chest and otherwise demonstrated postoperative change from esophageal resection and gastric pull- through. Note was made of moderate to severe constipation. A complex lesion in the lower pole of left kidney was again seen, initially identified in March 2021 and further characterized on MRI. ROS: See above HPI for pertinent positives & negatives. A total of 10 systems reviewed and were otherwise negative. PAST MEDICAL HISTORY:See Below PAST SURGICAL HISTORY:See Below FAMILY HISTORY:See Below SOCIAL HISTORY:See Below HOME MEDICATIONS:See Below ALLERGIES:See Below VITALS:See Below PHYSICAL EXAMINATION: GENERAL: Awake, alert, uncomfortable-appearing, in no distress HENT: Normocephalic, atraumatic. Oropharynx with dry mucous membranes and otherwise unremarkable. EYES: Normal conjunctiva. Sclera non-icteric. NECK: Supple. No nuchal rigidity. FROM. No JVD. RESPIRATORY: Clear to auscultation. CARDIAC: Regular rate, normal rhythm. Extremities warm and well perfused. Pulses equal. ABDOMEN: Soft, non-distended. Mild epigastric discomfort without discrete tenderness to palpation. No rebound or guarding. No masses. RECTAL: Deferred. MUSCULOSKELETAL: Chest examination reveals no tenderness. The back is symmetrical on inspection without obvious abnormality. There is no CVA tenderness to palpation. No joint edema. LOWER EXTREMITIES: Calves are equal size bilaterally and non-tender. No edema. No discoloration. NEURO: Normal sensorium. No sensory or motor deficits noted. SKIN: No rash or jaundice noted. Heriberto Morocho MD Past Med/Surg History Medical History Abdominal pain Recently admitted for abdominal pain- pain improved since discharged on 01/03/21 Abnormal weight loss 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 dx'ed with esophageal cancer in 2007 EGD in 10/2020 did show Barretts with esophagitis and ulcers - put on PPI Candidal esophagitis S/p treatment after EGD Esophageal cancer 2007 s/p chemo and radiation Fissure, anal Pt unsure if still present- getting repeat colonoscopy in the future Fracture of multiple thoracic vertebrae 25 years ago Gastro-esophageal reflux disease with esophagitis Uncontrolled Hepatitis C [id number] Hypertension Lumbago Restless leg No current issues 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 Withdrawal from opioids Was on increased opioids in the past secondary to chronic back pain- weaned off pain medications- was taking herbal supplement (Kraton)= now using Suboxone to taper off supplement Surgical History History of anesthesia reaction pt states he woke up during 2 EGD procedures and during shoulder sx History of colonoscopy History of cystoscopy History of esophagectomy 2007 History of esophagogastroduodenoscopy (EGD) recent 10/31/2020 History of repair of rotator cuff right and left shoulder History of right knee surgery meniscectomy Hx laparoscopic cholecystectomy Status post surgery neck surgery with hardware Family History Father Hypertension Myocardial infarction Coronary heart disease Mother Cancer Skin and Lung Brother Hypertension Other No family history of adverse response to anesthesia Denies family history of Ovarian cancer Prostate cancer Breast cancer Colorectal cancer Social History Smoking Status: Never smoker Tobacco Type: Cigarettes Years Smoked: 10; Second Hand Exposure: No; Do You Dip or Chew Tobacco: No; Hx Alcohol Use: No Hx Substance Use: No Preferred Language: Bahamian Communication Ability: Effective Visual Impairment: No Limitations Hearing Ability: Normal Supervisor Dehydrogenation Required: No Beliefs That Will Affect Care: None marital status: Current Living Situation: Spouse current occupational status: employed 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 Other Information That Helps Us Care for You: No Feels Safe at Home: Yes Safety Concerns: Feels Safe At This Time Childhood Exposure to Second-Hand Smoke: Yes caffeine: Yes Dental Care, Regularly: Yes Physical Activity Frequency: Daily Seatbelt Use: always Sunscreen Use: No Assistive Devices: None Allergies Allergies Allergy/AdvReac Type Severity Reaction Status Date / Time No Known Allergies Allergy Verified 07/11/21 08:36 Home Meds Home Medications Medication Instructions Recorded Confirmed buprenorphine 8 mg-naloxone 2 mg 1 tab SUBLINGUAL BID 01/09/21 07/11/21 sublingual tablet fluoride (sodium) 1.1 % dental 1 applic DENTAL HS 04/13/21 07/11/21 paste (PreviDent 5000 Booster Plus) ondansetron HCl 4 mg tablet 4 mg PO Q8 PRN 07/05/21 07/11/21 Previous Rx's Medication Instructions Recorded citalopram 20 mg tablet 20 mg PO QAM #90 tab 08/22/20 lisinopril 20 mg tablet 20 mg PO QAM #30 tab 09/25/20 metoclopramide HCl 10 mg tablet 10 mg PO Q6H PRN #30 tab 04/16/21 dexlansoprazole 60 mg 60 mg PO DAILY #30 cap 06/11/21 capsule,biphase delayed release famotidine 40 mg tablet (Pepcid) 20 mg PO BID #90 tab 07/07/21 pantoprazole 40 mg tablet,delayed 40 mg PO BID #60 tab 07/07/21 release (Protonix) polyethylene glycol 3350 17 gram 17 g PO DAILY #100 ea 07/07/21 oral powder packet (Miralax) sucralfate 100 mg/mL oral 1 g PO ACHS #400 ml 07/07/21 suspension clonidine HCl 0.1 mg tablet 0.1 mg PO BID PRN #60 tab 07/11/21 gabapentin 300 mg capsule 300 mg PO TID PRN #90 cap 07/11/21 Results & Data (ED) Vital Signs Vital Signs - 24 hr 07/11/21 07:55 07/11/21 09:30 07/11/21 10:00 Temperature 36.5 C Temperature Source Oral Pulse Rate 73 Pulse Rate [Left Finger] 90 69 Pulse Rhythm Regular Pulse Rhythm [Left Finger] Regular Regular Pulse Strength Normal Pulse Strength [Left Finger] Normal Normal Respiratory Rate 18 20 20 Respiratory Effort / Characteristics Non-Labored Spontaneous Non-Labored Spontaneous Non-Labored Spontaneous Respiratory Depth Normal Normal Normal Respiratory Pattern Regular Regular Blood Pressure 137/100 Blood Pressure [Right Arm] 165/90 H 176/96 H Blood Pressure Mean 112 Blood Pressure Mean [Right Arm] 115 122 Blood Pressure Position Sitting Blood Pressure Position [Right Arm] Sitting Sitting Pulse Oximetry 99 97 99 Oxygen Delivery Method Room Air Room Air Room Air Sepsis Recent Fever Within 48 Hours No Sepsis New/Unexplained Change in Mental Status No Sepsis Action Taken by Nursing No Action Required 07/11/21 13:00 Temperature Temperature Source Pulse Rate Pulse Rate [Left Finger] Pulse Rhythm Pulse Rhythm [Left Finger] Pulse Strength Pulse Strength [Left Finger] Respiratory Rate 20 Respiratory Effort / Characteristics Non-Labored Respiratory Depth Normal Respiratory Pattern Regular Blood Pressure Blood Pressure [Right Arm] 121/74 Blood Pressure Mean Blood Pressure Mean [Right Arm] 89 Blood Pressure Position Blood Pressure Position [Right Arm] Sitting Pulse Oximetry Oxygen Delivery Method Sepsis Recent Fever Within 48 Hours Sepsis New/Unexplained Change in Mental Status Sepsis Action Taken by Nursing Laboratory Data Attestation: I reviewed the patient's lab results. Result diagrams: 07/11/21 08:10 07/11/21 08:10 Lab Results 07/11/21 07/11/21 07/11/21 Range/Units 08:10 08:10 08:10 WBC 8.62 (4.8-10.8) K/uL RBC 4.66 L (4.7-6.1) M/uL Hgb 12.8 L (14.0-18.0) g/dL Hct 39.5 L (42-52) % MCV 84.8 (80-100) fL MCH 27.5 (25-34) pg MCHC 32.4 (32-36) g/dL RDW Std Deviation 46.8 H (36.4-46.3) fL RDW Coeff of Dorothy 15.2 H (11.5-14.5) % Plt Count 273 (130-400) K/uL MPV 10.9 H (7.4-10.4) fL Immature Gran % (Auto) 0.2 % Neut % (Auto) 76.6 % Lymph % (Auto) 11.7 % Winn % (Auto) 10.7 % Eos % (Auto) 0.5 % Baso % (Auto) 0.3 % Neut # (Auto) 6.60 H (1.4-6.5) K/uL Lymph # (Auto) 1.01 L (1.2-3.4) K/uL Winn # (Auto) 0.92 H (0.11-0.59) K/uL Eos # (Auto) 0.04 (0-0.5) K/uL Baso # (Auto) 0.03 (0-0.2) K/uL Immature Gran # (Auto) 0.02 (0.00-0.02) K/uL Sodium 137 (136-145) mmol/L Potassium 3.8 (3.5-5.1) mmol/L Chloride 104 (98-107) mmol/L Carbon Dioxide 26 (21-32) mmol/L Anion Gap 7.0 (3-11) BUN 12 (7-18) mg/dl Creatinine 1.03 (0.6-1.4) mg/dl Est Cr Clr Drug Dosing 61.0 ml/min Est GFR ( Amer) 93.0 ml/min Est GFR (Non-Af Amer) 80.3 ml/min BUN/Creatinine Ratio 11.8 (10-20) Glucose 109 H (70-99) mg/dl Calcium 9.3 (8.5-10.1) mg/dl Phosphorus 3.8 (2.5-4.9) mg/dl Magnesium 2.6 H (1.8-2.4) mg/dl Total Bilirubin 0.5 (0.2-1) mg/dl Direct Bilirubin 0.2 (0-0.2) mg/dl AST 13 L (15-37) U/L ALT 16 (12-78) U/L Alkaline Phosphatase 97 (45-117) U/L Troponin I < 0.015 (0-0.045) ng/ml Total Protein 7.5 (6.4-8.2) gm/dl Albumin 3.9 (3.4-5.0) gm/dl Globulin 3.6 (2.5-4.0) gm/dl Albumin/Globulin Ratio 1.1 (0.9-2) Lipase 159 (73-393) U/L TSH 5.540 H (0.300-4.500) uIu/ml Free T4 0.96 (0.8-1.6) ng/dl Urine Color Urine Appearance (Clear) Urine pH (4.5-7.5) Ur Specific [place] (1.000-1.030) Urine Protein (Negative) Urine Glucose (UA) (Negative) Urine Ketones (Negative) Urine Blood (Negative) Urine Nitrite (Negative) Urine Bilirubin (Negative) Urine Urobilinogen (Negative) Ur Leukocyte Esterase (Negative) COVID-19 Eval Order SARS-CoV-2 (PCR) (Negative) 07/11/21 07/11/21 07/11/21 Range/Units 09:57 10:00 10:00 WBC (4.8-10.8) K/uL RBC (4.7-6.1) M/uL Hgb (14.0-18.0) g/dL Hct (42-52) % MCV (80-100) fL MCH (25-34) pg MCHC (32-36) g/dL RDW Std Deviation (36.4-46.3) fL RDW Coeff of Dorothy (11.5-14.5) % Plt Count (130-400) K/uL MPV (7.4-10.4) fL Immature Gran % (Auto) % Neut % (Auto) % Lymph % (Auto) % Winn % (Auto) % Eos % (Auto) % Baso % (Auto) % Neut # (Auto) (1.4-6.5) K/uL Lymph # (Auto) (1.2-3.4) K/uL Winn # (Auto) (0.11-0.59) K/uL Eos # (Auto) (0-0.5) K/uL Baso # (Auto) (0-0.2) K/uL Immature Gran # (Auto) (0.00-0.02) K/uL Sodium (136-145) mmol/L Potassium (3.5-5.1) mmol/L Chloride (98-107) mmol/L Carbon Dioxide (21-32) mmol/L Anion Gap (3-11) BUN (7-18) mg/dl Creatinine (0.6-1.4) mg/dl Est Cr Clr Drug Dosing ml/min Est GFR ( Amer) ml/min Est GFR (Non-Af Amer) ml/min BUN/Creatinine Ratio (10-20) Glucose (70-99) mg/dl Calcium (8.5-10.1) mg/dl Phosphorus (2.5-4.9) mg/dl Magnesium (1.8-2.4) mg/dl Total Bilirubin (0.2-1) mg/dl Direct Bilirubin (0-0.2) mg/dl AST (15-37) U/L ALT (12-78) U/L Alkaline Phosphatase (45-117) U/L Troponin I (0-0.045) ng/ml Total Protein (6.4-8.2) gm/dl Albumin (3.4-5.0) gm/dl Globulin (2.5-4.0) gm/dl Albumin/Globulin Ratio (0.9-2) Lipase (73-393) U/L TSH (0.300-4.500) uIu/ml Free T4 (0.8-1.6) ng/dl Urine Color Dark Yellow Urine Appearance Clear (Clear) Urine pH 6.0 (4.5-7.5) Ur Specific [place] 1.019 (1.000-1.030) Urine Protein Negative (Negative) Urine Glucose (UA) Negative (Negative) Urine Ketones Trace H (Negative) Urine Blood Negative (Negative) Urine Nitrite Negative (Negative) Urine Bilirubin Negative (Negative) Urine Urobilinogen Negative (Negative) Ur Leukocyte Esterase Negative (Negative) COVID-19 Eval Order Covid19 at [facility] SARS-CoV-2 (PCR) NEGATIVE (Negative) Administered Medications Buprenorphine/Naloxone (Buprenorphine/Naloxone 8/2 Mg Tab) 1 tab SL BID YANETH Stop: 08/10/21 20:59 Last Admin: 07/11/21 20:11 Dose: 1 tab Documented by: [id number] Famotidine (Famotidine 20 Mg Tab) 20 mg PO BID YANETH Stop: 08/10/21 20:59 Last Admin: 07/11/21 20:12 Dose: 20 mg Documented by: [id number] Sodium Chloride (Nss 1000ml) 1,000 mls @ 80 mls/hr IV .[id number] YANETH Stop: 08/10/21 17:02 Last Admin: 07/11/21 17:27 Dose: 80 mls/hr Documented by: [id number] Metoclopramide HCl (Metoclopramide Hcl Inj 5 Mg/Ml 2 Ml Vial) 10 mg IV Q6H YANETH Stop: 08/10/21 17:59 Last Admin: 07/11/21 18:09 Dose: 10 mg Documented by: [id number] Pantoprazole Sodium (Pantoprazole 40 Mg Tab) 40 mg PO BID YANETH Stop: 08/10/21 20:59 Last Admin: 07/11/21 20:12 Dose: 40 mg Documented by: [id number] Sucralfate (Sucralfate 1 Gm/10 Ml Udc) 1 gm PO ACHS YANETH Stop: 08/10/21 17:29 Last Admin: 07/11/21 20:11 Dose: Not Given Documented by: [id number] Admin: 07/11/21 18:33 Dose: 1 gm Documented by: [id number] Discontinued Medications Bisacodyl (Bisacodyl 10 Mg Supp) 10 mg [place] NOW STA Stop: 07/11/21 14:43 Last Admin: 07/11/21 16:12 Dose: 10 mg Documented by: [id number] Dicyclomine HCl (Dicyclomine Hcl 10 Mg/Ml 2 Ml Amp/Vial) 20 mg IM NOW ONE Stop: 07/11/21 11:41 Last Admin: 07/11/21 12:02 Dose: 20 mg Documented by: [id number] Diphenhydramine HCl (Diphenhydramine 50 Mg/Ml Vial) 25 mg IV NOW STA Stop: 07/11/21 08:49 Last Admin: 07/11/21 09:11 Dose: 25 mg Documented by: [id number] Dextrose/Sodium Chloride (D5w And Nss) 1,000 mls @ 999 mls/hr IV .Q1H1M STA Stop: 07/11/21 09:48 Last Infusion: 07/11/21 10:49 Dose: 0 mls/hr Documented by: [id number] Admin: 07/11/21 09:48 Dose: 999 mls/hr Documented by: [id number] Famotidine (Pepcid 20mg Iv Push) 20 mg in 5 mls @ 2.5 mls/min IV NOW STA Stop: 07/11/21 08:49 Last Admin: 07/11/21 09:11 Dose: 2.5 mls/min Documented by: [id number] Acetaminophen (Ofirmev) 1,000 mg in 100 mls @ 400 mls/hr IV NOW STA Stop: 07/11/21 09:05 Last Infusion: 07/11/21 11:31 Dose: 0 mls/hr Documented by: [id number] Admin: 07/11/21 09:11 Dose: 400 mls/hr Documented by: [id number] Promethazine HCl (Phenergan) 25 mg in 51 mls @ 204 mls/hr IV NOW STA Stop: 07/11/21 11:54 Last Infusion: 07/11/21 13:31 Dose: 0 mls/hr Documented by: [id number] Admin: 07/11/21 12:02 Dose: 204 mls/hr Documented by: [id number] Metoclopramide HCl (Metoclopramide Hcl Inj 5 Mg/Ml 2 Ml Vial) 10 mg IV NOW STA Stop: 07/11/21 08:49 Last Admin: 07/11/21 09:12 Dose: 10 mg Documented by: [id number] Imaging Data Radiologist's Impression: Chest X-Ray 07/11/21 08:46 XR chest 1V portable CLINICAL HISTORY: Abdominal pain, nausea and vomiting. COMPARISON STUDY: Chest CT July 05, 2021. FINDINGS: Postoperative findings within the cervical spine as well as the mediastinum are incidentally noted. Cardiac size is normal. There is no evidence for pulmonary edema. No consolidation is identified. IMPRESSION: No acute cardiopulmonary findings. No change in appearance of the chest. ACT 112: Negative or not required by law. Electronically signed by: Christopher Beverly M.D. 07/11/2021 9:20 AM KUB X-Ray 07/11/21 08:49 KUB HISTORY: Acute nausea and vomiting with generalized abdominal pain n/v abd pain COMPARISON: CT abdomen and pelvis 07/05/2021 FINDINGS: Nonobstructive bowel gas pattern. Moderate fecal retention. Cholecystectomy. No renal calculi. No ureteral calculi. No pneumoperitoneum or pneumatosis. No fracture. IMPRESSION: 1. Nonobstructive bowel gas pattern. 2. Moderate fecal retention. 3. Cholecystectomy. ACT 112: Negative or not required by law. The above report was generated using voice recognition software. It may contain grammatical, syntax or spelling errors. Electronically signed by: Mustapha Madrid M.D. 07/11/2021 9:14 AM Discharge Plan Visit Data Chief Complaint: Vomiting Stated Complaint: VOMITING ED Provider: Heriberto Morocho Discharge Problem: Intractable nausea and vomiting, Dehydration, Constipation Patient Disposition: Admitted As Inpatient Discharge Instructions Interventions: ED Discharge Assessment Last Done: 07/11/21 16:17
[2021-07-11 10:08] LABS: Appearance Urine Clear (Clear); Bilirubin Urine Negative (Negative); Blood Urine Negative (Negative); Color Urine Dark Yellow; Glucose Urine UA Negative (Negative); Ketones Urine Trace (Negative); Leukocyte Esterase Urine Negative (Negative); Nitrite Urine Negative (Negative); Protein Urine Negative (Negative); Specific Gravity Urine 1.019 (1.000-1.030); Urobilinogen Urine Negative (Negative)
[2021-07-11] MEDS ORDERED: DICYCLOMINE HCL 10 MG/ML 2 ML AMP/VIAL IM ONE (11:40)
[2021-07-11] MEDS ORDERED: PROMETHAZINE 25 MG/51 ML BAG IV STA (11:40)
--- NOTE | 2021-07-11 14:35 | History & Physical Report ---
Date of Service July 11, 2021 Assessment & Plan (1) Nausea & vomiting: Plan: May be secondary to gastroparesis although patient has not yet had confirmatory testing. Could be worsened by as long-term Suboxone use Placed in nonmonitored observation Start IV Reglan 10 Connor grams 3 times daily As needed Zofran Start clear liquid diet, continue gentle IV hydration We will ask GI to consult for further recommendations (2) Constipation: Plan: May be contributing to the above Will order Dulcolax suppository, if no BM consider enema (3) Renal mass: Plan: No acute treatment, patient follow-up at [facility] as previously instructed (4) Hypertension: Plan: Blood pressure is currently 121/74 We will order outpatient p.o. medications if patient can tolerate (5) Murry esophagus: Plan: Patient is on dexilant, famotidine, and Carafate, will order pharmacy equivalents with the patient is here History of Present Illness Chief Complaint: Intractable nausea and vomiting Primary Care Provider: Rafiq Boucher MD This is a 55-year-old male with medical history of hypertension, esophagitis/Murry's esophagus, previous multiple episodes of intractable nausea vomiting thought to be gastroparesis that presents today with similar nausea and vomiting. Patient seems a little lethargic, likely secondary to Phenergan administration, but is otherwise a decent historian. Patient is previously been admitted with similar complaints, I do see that he had an EGD during his last visit was essentially unremarkable. He was told that he needs to get an outpatient gastric emptying study. Patient tells me he has a scheduled in August. In addition, he was found to have a soft tissue mass on his kidney. He has an appointment in July at [facility] to have a nephrectomy. However, patient started having symptoms again late last week after a trip for a wedding to [place]. He tells me that he was eating about times and feels this may have contributed. Work-up also revealed moderate constipation. He was given famotidine, Benadryl, Reglan, and hydration without any relief. Therefore the patient is now being placed in observation for further treatment. Allergies Allergy/AdvReac Type Severity Reaction Status Date / Time No Known Allergies Allergy Verified 07/11/21 08:36 Home Medications Medication Instructions Recorded Confirmed Type citalopram 20 mg tablet 20 mg PO QAM #90 tab 08/22/20 07/11/21 Rx lisinopril 20 mg tablet 20 mg PO QAM #30 tab 09/25/20 07/11/21 Rx buprenorphine 8 mg-naloxone 2 mg 1 tab SUBLINGUAL BID 01/09/21 07/11/21 History sublingual tablet gabapentin 300 mg capsule 300 mg PO TID PRN #90 cap 02/05/21 07/11/21 Rx fluoride (sodium) 1.1 % dental 1 applic DENTAL HS 04/13/21 07/11/21 History paste (PreviDent 5000 Booster Plus) metoclopramide HCl 10 mg tablet 10 mg PO Q6H PRN #30 tab 04/16/21 07/11/21 Rx dexlansoprazole 60 mg 60 mg PO DAILY #30 cap 06/11/21 07/11/21 Rx capsule,biphase delayed release clonidine HCl 0.1 mg tablet 0.1 mg PO BID PRN #60 tab 06/19/21 07/11/21 Rx ondansetron HCl 4 mg tablet 4 mg PO Q8 PRN 07/05/21 07/11/21 History famotidine 40 mg tablet (Pepcid) 20 mg PO BID #90 tab 07/07/21 07/11/21 Rx pantoprazole 40 mg tablet,delayed 40 mg PO BID #60 tab 07/07/21 07/11/21 Rx release (Protonix) polyethylene glycol 3350 17 gram 17 g PO DAILY #100 ea 07/07/21 07/11/21 Rx oral powder packet (Miralax) sucralfate 100 mg/mL oral 1 g PO ACHS #400 ml 07/07/21 07/11/21 Rx suspension Past Med/Surg History Medical History Abdominal pain Recently admitted for abdominal pain- pain improved since discharged on 01/03/21 Abnormal weight loss 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 dx'ed with esophageal cancer in 2007 EGD in 10/2020 did show Barretts with esophagitis and ulcers - put on PPI Candidal esophagitis S/p treatment after EGD Esophageal cancer 2007 s/p chemo and radiation Fissure, anal Pt unsure if still present- getting repeat colonoscopy in the future Fracture of multiple thoracic vertebrae 25 years ago Gastro-esophageal reflux disease with esophagitis Uncontrolled Hepatitis C [id number] Hypertension Lumbago Restless leg No current issues 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 Withdrawal from opioids Was on increased opioids in the past secondary to chronic back pain- weaned off pain medications- was taking herbal supplement (Kraton)= now using Suboxone to taper off supplement Surgical History History of anesthesia reaction pt states he woke up during 2 EGD procedures and during shoulder sx History of colonoscopy History of cystoscopy History of esophagectomy 2007 History of esophagogastroduodenoscopy (EGD) recent 10/31/2020 History of repair of rotator cuff right and left shoulder History of right knee surgery meniscectomy Hx laparoscopic cholecystectomy Status post surgery neck surgery with hardware Family History Father Hypertension Myocardial infarction Coronary heart disease Mother Cancer Skin and Lung Brother Hypertension Other No family history of adverse response to anesthesia Denies family history of Ovarian cancer Prostate cancer Breast cancer Colorectal cancer Social History Smoking Status: Never smoker Tobacco Type: Cigarettes Years Smoked: 10; Second Hand Exposure: No; Hx Alcohol Use: No Hx Substance Use: No Preferred Language: Kazakh Communication Ability: Effective Visual Impairment: No Limitations Hearing Ability: Normal Store Operations Specialist Required: No Beliefs That Will Affect Care: None marital status: Current Living Situation: Spouse current occupational status: employed 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 Feels Safe at Home: Yes Childhood Exposure to Second-Hand Smoke: Yes caffeine: Yes Dental Care, Regularly: Yes Physical Activity Frequency: Daily Seatbelt Use: always Sunscreen Use: No Assistive Devices: None Review of Systems Constitutional: no fever, no chills, no weakness, no weight loss and no weight gain Eyes: as per Subjective / HPI Respiratory: no cough, no chest congestion, no dyspnea and no dyspnea on exertion Cardiovascular: no chest pain, no orthopnea, no palpitations, no lighthe adedness and no edema Gastrointestinal: + nausea, + vomiting and + constipation; no abdominal pain and no diarrhea/loose stools Musculoskeletal: no back pain, no neck pain, no joint pain, no stiffness and no myalgia Integumentary: no rash Neurologic: no gait abnormality, no unsteadiness, no falls and no generalized weakness Physical Exam Constitutional: cooperative; no acute distress Neck: trachea midline, no thyromegaly Respiratory: normal respiratory effort Auscultation: lungs clear to auscultation bilaterally; no crackles, no rales, no rhonchi and no wheezes Cardiovascular: Rate/Rhythm: regular rate and regular rhythm Heart Sounds: normal S1 and normal S2 Gastrointestinal (Abdomen): Inspection/Auscultation: + hypoactive bowel sounds Percussion/Palpation: + abdomen tender (minimal), abdomen soft and + tympanic to percussion; no guarding, abdomen not rigid and no hepatosplenomegaly Skin: no rashes, warm and dry Results & Data Results & Data ([facility]) Vital Signs (Past 12 Hours) Vital Signs Temp Pulse Pulse Resp BP BP Pulse Ox 07/11/21 13:00 20 121/74 07/11/21 10:00 69 20 176/96 H 99 07/11/21 09:30 90 20 165/90 H 97 07/11/21 07:55 36.5 C 73 18 137/100 99 Laboratory Results Laboratory Results WBC 8.62 K/uL (4.8-10.8) 07/11/21 08:10 RBC 4.66 M/uL (4.7-6.1) L 07/11/21 08:10 Hgb 12.8 g/dL (14.0-18.0) L 07/11/21 08:10 Hct 39.5 % (42-52) L 07/11/21 08:10 MCV 84.8 fL (80-100) 07/11/21 08:10 MCH 27.5 pg (25-34) 07/11/21 08:10 MCHC 32.4 g/dL (32-36) 07/11/21 08:10 RDW Std Deviation 46.8 fL (36.4-46.3) H 07/11/21 08:10 RDW Coeff of Dorothy 15.2 % (11.5-14.5) H 07/11/21 08:10 Plt Count 273 K/uL (130-400) 07/11/21 08:10 MPV 10.9 fL (7.4-10.4) H 07/11/21 08:10 Immature Gran % (Auto) 0.2 % 07/11/21 08:10 Neut % (Auto) 76.6 % 07/11/21 08:10 Lymph % (Auto) 11.7 % 07/11/21 08:10 [place] % (Auto) 10.7 % 07/11/21 08:10 Eos % (Auto) 0.5 % 07/11/21 08:10 Baso % (Auto) 0.3 % 07/11/21 08:10 Neut # (Auto) 6.60 K/uL (1.4-6.5) H 07/11/21 08:10 Lymph # (Auto) 1.01 K/uL (1.2-3.4) L 07/11/21 08:10 [place] # (Auto) 0.92 K/uL (0.11-0.59) H 07/11/21 08:10 Eos # (Auto) 0.04 K/uL (0-0.5) 07/11/21 08:10 Baso # (Auto) 0.03 K/uL (0-0.2) 07/11/21 08:10 Immature Gran # (Auto) 0.02 K/uL (0.00-0.02) 07/11/21 08:10 Sodium 137 mmol/L (136-145) 07/11/21 08:10 Potassium 3.8 mmol/L (3.5-5.1) 07/11/21 08:10 Chloride 104 mmol/L (98-107) 07/11/21 08:10 Carbon Dioxide 26 mmol/L (21-32) 07/11/21 08:10 Anion Gap 7.0 (3-11) 07/11/21 08:10 BUN 12 mg/dl (7-18) 07/11/21 08:10 Creatinine 1.03 mg/dl (0.6-1.4) 07/11/21 08:10 Est Cr Clr Drug Dosing 61.0 ml/min 07/11/21 08:10 Est GFR ( Amer) 93.0 ml/min 07/11/21 08:10 Est GFR (Non-Af Amer) 80.3 ml/min 07/11/21 08:10 BUN/Creatinine Ratio 11.8 (10-20) 07/11/21 08:10 Glucose 109 mg/dl (70-99) H 07/11/21 08:10 Calcium 9.3 mg/dl (8.5-10.1) 07/11/21 08:10 Phosphorus 3.8 mg/dl (2.5-4.9) 07/11/21 08:10 Magnesium 2.6 mg/dl (1.8-2.4) H 07/11/21 08:10 Total Bilirubin 0.5 mg/dl (0.2-1) 07/11/21 08:10 Direct Bilirubin 0.2 mg/dl (0-0.2) 07/11/21 08:10 AST 13 U/L (15-37) L 07/11/21 08:10 ALT 16 U/L (12-78) 07/11/21 08:10 Alkaline Phosphatase 97 U/L (45-117) 07/11/21 08:10 Troponin I < 0.015 ng/ml (0-0.045) 07/11/21 08:10 Total Protein 7.5 gm/dl (6.4-8.2) 07/11/21 08:10 Albumin 3.9 gm/dl (3.4-5.0) 07/11/21 08:10 Globulin 3.6 gm/dl (2.5-4.0) 07/11/21 08:10 Albumin/Globulin Ratio 1.1 (0.9-2) 07/11/21 08:10 Lipase 159 U/L (73-393) 07/11/21 08:10 TSH 5.540 uIu/ml (0.300-4.500) H 07/11/21 08:10 Free T4 0.96 ng/dl (0.8-1.6) 07/11/21 08:10 Urine Color Dark Yellow 07/11/21 09:57 Urine Appearance Clear (Clear) 07/11/21 09:57 Urine pH 6.0 (4.5-7.5) 07/11/21 09:57 Ur Specific [place] 1.019 (1.000-1.030) 07/11/21 09:57 Urine Protein Negative (Negative) 07/11/21 09:57 Urine Glucose (UA) Negative (Negative) 07/11/21 09:57 Urine Ketones Trace (Negative) H 07/11/21 09:57 Urine Blood Negative (Negative) 07/11/21 09:57 Urine Nitrite Negative (Negative) 07/11/21 09:57 Urine Bilirubin Negative (Negative) 07/11/21 09:57 Urine Urobilinogen Negative (Negative) 07/11/21 09:57 Ur Leukocyte Esterase Negative (Negative) 07/11/21 09:57 COVID-19 Eval Order Covid19 at [facility] 07/11/21 10:00 SARS-CoV-2 (PCR) NEGATIVE (Negative) 07/11/21 10:00 Impressions Chest X-Ray 07/11/21 08:46 XR chest 1V portable CLINICAL HISTORY: Abdominal pain, nausea and vomiting. COMPARISON STUDY: Chest CT July 05, 2021. FINDINGS: Postoperative findings within the cervical spine as well as the mediastinum are incidentally noted. Cardiac size is normal. There is no evidence for pulmonary edema. No consolidation is identified. IMPRESSION: No acute cardiopulmonary findings. No change in appearance of the chest. ACT 112: Negative or not required by law. Electronically signed by: Christopher Beverly M.D. 07/11/2021 9:20 AM KUB X-Ray 07/11/21 08:49 KUB HISTORY: Acute nausea and vomiting with generalized abdominal pain n/v abd pain COMPARISON: CT abdomen and pelvis 07/05/2021 FINDINGS: Nonobstructive bowel gas pattern. Moderate fecal retention. Cholecystectomy. No renal calculi. No ureteral calculi. No pneumoperitoneum or pneumatosis. No fracture. IMPRESSION: 1. Nonobstructive bowel gas pattern. 2. Moderate fecal retention. 3. Cholecystectomy. ACT 112: Negative or not required by law. The above report was generated using voice recognition software. It may contain grammatical, syntax or spelling errors. Electronically signed by: Mustapha Madrid M.D. 07/11/2021 9:14 AM PG Care Time/CCT Total # of Minutes Spent Total Time Spent with Patient: Total time spent is greater than 50% in coordination of care (as documented) at patient's floor/unit and/or counseling patient: Coding Level of Care Code INT OBSERVATION CARE 70M LVL 3 Diagnoses Nausea & vomiting R11.2 Vomiting Intractability: intractable Vomiting type: unspecified Constipation K59.00 Renal mass N28.89 Hypertension I10 Hypertension type: unspecified Murry esophagus K22.719 Murry's esophagus type: with dysplasia of unspecified degree (1) Nausea & vomiting Vomiting Intractability: intractable Vomiting type: unspecified Qualified Code(s): R11.2 - Nausea with vomiting, unspecified (2) Hypertension Hypertension type: unspecified Qualified Code(s): I10 - Essential (primary) hypertension (3) Murry esophagus Murry's esophagus type: with dysplasia of unspecified degree Qualified Code(s): K22.719 - Murry's esophagus with dysplasia, unspecified
[2021-07-11] MEDS ORDERED: bisacodyL 10 MG SUPP PR STA (14:42)
[2021-07-11] MEDS ORDERED: ONDANSETRON INJ 2 MG/ML 2 ML VIAL IV PRN (17:03)
[2021-07-11] MEDS ORDERED: cloNIDine HCL 0.1 MG TAB PO PRN (17:03)
[2021-07-11] MEDS ORDERED: GABAPENTIN 300 MG CAP PO PRN (17:03)
[2021-07-11] MEDS: SODIUM CHLORIDE 0.9% 1000ML 1,000 ML IV SCH (17:27)
[2021-07-11] MEDS: METOCLOPRAMIDE HCL INJ 5 MG/ML 2 ML VIAL IV SCH ×2 (18:09→23:49)
[2021-07-11] MEDS: SUCRALFATE 1 GM/10 ML UDC PO SCH ×2 (18:33→20:11)
[2021-07-11] MEDS: BUPRENORPHINE/NALOXONE 8/2 MG TAB SL SCH (20:11)
[2021-07-11] MEDS: PANTOprazole 40 MG TAB PO SCH (20:12)
[2021-07-11] MEDS: FAMOTIDINE 20 MG TAB PO SCH (20:12)
[2021-07-12] MEDS: SODIUM CHLORIDE 0.9% 1000ML 1,000 ML IV SCH ×2 (04:30→16:16)
[2021-07-12] MEDS: METOCLOPRAMIDE HCL INJ 5 MG/ML 2 ML VIAL IV SCH ×3 (05:50→19:32)
[2021-07-12 08:14] LABS: Basophils # (auto) 0.03 K/uL (0-0.2); Basophils % (auto) 0.6 %; Eosinophils # (auto) 0.11 K/uL (0-0.5); Eosinophils % (auto) 2.2 %; Hematocrit (blood only) 36.7 % (42-52); Hemoglobin 11.8 g/dL (14.0-18.0); Immature Granulocytes # (auto) 0.01 K/uL (0.00-0.02); Immature Granulocytes % (auto) 0.2 %; Lymphocytes % (auto) 36.8 %; Mean Corpuscular Hgb Conc 32.2 g/dL (32-36); Mean Platelet Volume 10.4 fL (7.4-10.4); Monocytes # (auto) 0.67 K/uL (0.11-0.59); Monocytes % (auto) 13.7 %; Neutrophils # (auto) 2.27 K/uL (1.4-6.5); Neutrophils % (auto) 46.5 %; Platelet Count 231 K/uL (130-400); RDW Coefficient of Variation 14.9 % (11.5-14.5); RDW Standard Deviation 46.3 fL (36.4-46.3); Red Blood Count 4.37 M/uL (4.7-6.1); White Blood Count 4.89 K/uL (4.8-10.8)
[2021-07-12] MEDS: SUCRALFATE 1 GM/10 ML UDC PO SCH ×4 (08:23→20:33)
[2021-07-12] MEDS: PANTOprazole 40 MG TAB PO SCH ×2 (08:23→20:33)
[2021-07-12] MEDS: CITALOPRAM 20 MG TAB PO SCH (08:23)
[2021-07-12] MEDS: lisinopril 20 MG TAB PO SCH (08:23)
[2021-07-12] MEDS: BUPRENORPHINE/NALOXONE 8/2 MG TAB SL SCH ×2 (08:23→20:40)
[2021-07-12] MEDS: FAMOTIDINE 20 MG TAB PO SCH ×2 (08:23→20:33)
[2021-07-12 08:49] LABS: Albumin Level 3.3 gm/dl (3.4-5.0); BUN Creatinine Ratio 8.9 (10-20); Calcium 8.7 mg/dl (8.5-10.1); Creatinine Clr Calc Pharmacy 108.9 ml/min; Est GFR (African American) 116.8 ml/min; Est GFR (Non-African American) 100.7 ml/min; Potassium 3.7 mmol/L (3.5-5.1)
[2021-07-12 08:52] LABS: Bilirubin,Total 0.5 mg/dl (0.2-1); Globulin 3.2 gm/dl (2.5-4.0); Total Protein 6.5 gm/dl (6.4-8.2)
--- NOTE | 2021-07-12 11:26 | Gastrointestinal Consultation ---
Date of Consultation July 12, 2021 Assessment & Plan (1) Intractable nausea and vomiting: (2) Constipation: Suspect n/v related to GI dysmotility from possible gastroparesis and constipation related to chronic Suboxone use. I did have a long conversation with the patient about repeated trips to the ER for chronic GI symptoms which will need to be worked up as an outpatient. Due to [facility] not being able to perform GES soon, will attempt to schedule at an outside facility. He will bryson in on Reglan 10 mg every 6 hours, Protonix 40 mg BID and Carafate 1 g ACHS. Diet can be advanced to a low fat and low fiber content. Encouraged smaller, more frequent eating. No plan for invasive GI work up as he has had numerous upper endoscopies in the past, most recently just three months ago by Dr. Herman. Will start patient on a GoLytely bowel preparation to eliminate the constipation in an effort to improve his nausea and vomiting as well. Thank you for allowing us to participate in the care of this mutual patient. If you have any questions or concerns, please do not hesitate to contact us. Supervising Physician Co-Signing Physician Notes I personally evaluated the patient and agree with the findings as documented by NAOMI Ross Exam: abd: soft, nt, nd History of Present Illness Reason for Consultation: Intractable nausea with vomiting Requesting Physician: Dr. Maddox Attending Physician: Perico Castaneda DO History of Present Illness Patient is a 55 y.o. male with a history of Murry's esophagus and esophageal cancer status post resection and gastric pull up with recurrent hospital admissions for nausea with vomiting. The patient has undergone and extensive work up for these symptoms and is awaiting an outpatient GES. He did no show for one scheduled test and had cancelled another. Now, due to scheduling restraints he is scheduled in August of 2021 with no opportunity for a sooner scan at [facility] per nuclear medicine. He states that he has been having ongoing symptoms of nausea and vomiting since Labor Day weekend. He has been taking Dexilant, antiemetics and Reglan as an outpatient with reported ongoing symptoms. He has not made any dietary modifications but states he is eating a soft diet due to poor dentition. He is also awaiting a nephrectomy for a known renal mass. He states he continues to return to the hospital in efforts to keep his job as he reports belief that "if I go to the hospital, my boss won't fire me because I have a serious illness". There is concern over GI dysmotility due to ongoing Suboxone use. Recent imaging demonstrates persistent moderate to severe constipation. No abdominal pain or other GI complaints. Allergies Allergy/AdvReac Type Severity Reaction Status Date / Time No Known Allergies Allergy Verified 07/11/21 08:36 Home Medications Medication Instructions Recorded Confirmed Type lisinopril 20 mg tablet 20 mg PO QAM #30 tab 09/25/20 07/11/21 Rx buprenorphine 8 mg-naloxone 2 mg 1 tab SUBLINGUAL BID 01/09/21 07/11/21 History sublingual tablet fluoride (sodium) 1.1 % dental 1 applic DENTAL HS 04/13/21 07/11/21 History paste (PreviDent 5000 Booster Plus) metoclopramide HCl 10 mg tablet 10 mg PO Q6H PRN #30 tab 04/16/21 07/11/21 Rx dexlansoprazole 60 mg 60 mg PO DAILY #30 cap 06/11/21 07/11/21 Rx capsule,biphase delayed release ondansetron HCl 4 mg tablet 4 mg PO Q8 PRN 07/05/21 07/11/21 History famotidine 40 mg tablet (Pepcid) 20 mg PO BID #90 tab 07/07/21 07/11/21 Rx pantoprazole 40 mg tablet,delayed 40 mg PO BID #60 tab 07/07/21 07/11/21 Rx release (Protonix) polyethylene glycol 3350 17 gram 17 g PO DAILY #100 ea 07/07/21 07/11/21 Rx oral powder packet (Miralax) sucralfate 100 mg/mL oral 1 g PO ACHS #400 ml 07/07/21 07/11/21 Rx suspension clonidine HCl 0.1 mg tablet 0.1 mg PO BID PRN #60 tab 07/11/21 Rx gabapentin 300 mg capsule 300 mg PO TID PRN #90 cap 07/11/21 Rx citalopram 20 mg tablet 20 mg PO QAM #90 tab 07/12/21 Rx Patient History Medical History Abdominal pain Recently admitted for abdominal pain- pain improved since discharged on 01/03/21 Abnormal weight loss 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 dx'ed with esophageal cancer in 2007 EGD in 10/2020 did show Barretts with esophagitis and ulcers - put on PPI Candidal esophagitis S/p treatment after EGD Esophageal cancer 2007 s/p chemo and radiation Fissure, anal Pt unsure if still present- getting repeat colonoscopy in the future Fracture of multiple thoracic vertebrae 25 years ago Gastro-esophageal reflux disease with esophagitis Uncontrolled Hepatitis C [id number] Hypertension Lumbago Restless leg No current issues 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 Withdrawal from opioids Was on increased opioids in the past secondary to chronic back pain- weaned off pain medications- was taking herbal supplement (Kraton)= now using Suboxone to taper off supplement Surgical History History of anesthesia reaction pt states he woke up during 2 EGD procedures and during shoulder sx History of colonoscopy History of cystoscopy History of esophagectomy 2007 History of esophagogastroduodenoscopy (EGD) recent 10/31/2020 History of repair of rotator cuff right and left shoulder History of right knee surgery meniscectomy Hx laparoscopic cholecystectomy Status post surgery neck surgery with hardware Family History Father Hypertension Myocardial infarction Coronary heart disease Mother Cancer Skin and Lung Brother Hypertension Other No family history of adverse response to anesthesia Denies family history of Ovarian cancer Prostate cancer Breast cancer Colorectal cancer Social History Smoking Status: Never smoker Tobacco Type: Cigarettes Years Smoked: 10; Second Hand Exposure: No; Do You Dip or Chew Tobacco: No; Hx Alcohol Use: No Hx Substance Use: No Preferred Language: Kiswahili Communication Ability: Effective Visual Impairment: No Limitations Hearing Ability: Normal Insulation Cutter And Former Required: No Beliefs That Will Affect Care: None marital status: Current Living Situation: Spouse current occupational status: employed 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 Other Information That Helps Us Care for You: No Feels Safe at Home: Yes Safety Concerns: Feels Safe At This Time Childhood Exposure to Second-Hand Smoke: Yes caffeine: Yes Dental Care, Regularly: Yes Physical Activity Frequency: Daily Seatbelt Use: always Sunscreen Use: No Assistive Devices: None Review of Systems Review of Systems: All systems reviewed & are unremarkable except as noted in HPI & below Physical Exam Constitutional: WD/WN, vitals as above Eyes: EOM intact bilaterally Neck: normal appearance Respiratory: normal respiratory effort, lungs clear to auscultation Cardiovascular: Rate/Rhythm: regular rate and regular rhythm Heart Sounds: no gallop and no murmur Gastrointestinal (Abdomen): normal bowel sounds, soft, nontender, no hepatosplenomegaly Inspection/Auscultation: abdomen not distended Musculoskeletal: Extremities: no cyanosis no lower extremity edema Skin: no rashes, warm and dry Neurologic: moves all extremities Psychiatric: A+Ox3, euthymic affect Results & Data ([facility]) Vital Signs (Past 12 Hours) Vital Signs Temp Pulse Resp BP Pulse Ox 07/12/21 07:42 36.5 C 60 16 148/82 H 95 Laboratory Results Abnormal lab results 07/12/21 07/12/21 Range/Units 07:49 07:49 RBC 4.37 L (4.7-6.1) M/uL Hgb 11.8 L (14.0-18.0) g/dL Hct 36.7 L (42-52) % RDW Coeff of Dorothy 14.9 H (11.5-14.5) % [place] # (Auto) 0.67 H (0.11-0.59) K/uL BUN/Creatinine Ratio 8.9 L (10-20) Albumin 3.3 L (3.4-5.0) gm/dl PG Care Time/CCT Total # of Minutes Spent Total Time Spent with Patient: Total time spent is greater than 50% in coordination of care (as documented) at patient's floor/unit and/or counseling patient: Coding Level of Care Code 69181 Inpt Consult Level 4 Diagnoses Intractable nausea and vomiting R11.2 Constipation K59.00
[2021-07-12] MEDS ORDERED: LAVAGE SOLUTION 4000ML PO SCH (12:00)
[2021-07-12 15:48] LABS: Amphetamines+Metham, Urine Neg (Neg); Barbiturates, Urine Neg (Neg); Benzodiazepine, Urine Neg (Neg); Cocaine, Urine Neg (Neg); MDMA (Ecstacy), Urine Neg (Neg); Methadone, Urine Neg (Neg); Opiate, Urine Neg (Neg); Phencyclidine, Urine Neg (Neg)
--- NOTE | 2021-07-12 16:25 | Hospitalist Progress Note ---
Date of Service July 12, 2021 Assessment & Plan (1) Nausea & vomiting: Plan: * Chronic intractable nausea and vomiting * Exact etiology unclear. Timed gastric emptying study as an outpatient by GI * EGD done in March showing no acute pathology * Other possibilities are acute withdrawal (which I am favoring). With review of the [place] drug monitoring [place], patient comes into the hospital close to when his Suboxone would be due. I did a UDS from urine and lab that has shown no evidence of opiates. I confirmed with lab and if patient had Suboxone in system, it would yield positive. His nausea and vomiting have resolved this morning. His Suboxone has since been resumed. * Other possibilities are cyclic vomiting syndrome or cannabis hyperemesis syndrome (although patient denies cannabis use. His UDS is not positive for cannabis so this 1 is unlikely) * Patient is getting ago completely prep for stool seen on imaging * Will need to follow-up with GI * Symptoms improving. Will advance diet * Plan for likely discharge tomorrow (2) Constipation: Plan: * See above (3) Renal mass: Plan: No acute treatment, patient follow-up at [facility] as previously instructed (4) Hypertension: Plan: Blood pressure is currently 121/74 without medication (5) Murry esophagus: Plan: Patient is on dexilant, famotidine, and Carafate, will order pharmacy equivalents with the patient is here Plan: Plan of care to be discussed with Dr. Castaneda. Further orders as warranted. Admission and Anticipated Discharge Date Admission Date: July 11, 2021 Subjective Patient seen on daily rounds today. 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 In addition, he has a history of Murry's esophagitis and most recently was diagnosed with prostate CA and found to have a subsequent renal mass that is malignant in its appearance and he is scheduled for nephrectomy. He has had recurrent hospitalizations for intractable nausea and vomiting. Follows GI. Had an EGD on 04/16 showing evidence of chronic esophagitis but no evidence of malignancy. Plan has been for an outpatient times gastric emptying study as the etiology behind his intractable nausea and vomiting is thought to be secondary to delayed peristalsis from his chronic Suboxone use. Patient does use Suboxone. It is important to note that every hospitalization seems to be several days prior to him being due for his Suboxone. His urine drug screen was negative Some stool seen on CT imaging. GI has seen patient and ordered a GoLytly prep Review of Systems Review of Systems: All systems reviewed and are unremarkable except as noted in HPI and below currently, Denies fevers, chills, headache, nasal congestion, sore throat, cough, chest pain, shortness of breath, palpitations, orthopnea, PND, abdominal pain, nausea, vomiting, diarrhea, constipation, dysuria, hematuria, frequency, back pain, joint pain or swelling, easy bruising or blooding, skin lesions or rashes. Physical Exam Physical Exam: General: Resting comfortably in his hospital bed. NAD. HEENT: Head is AT/NC buccal mucosa is moist and pink Neck: No JVD. Negative hepatojugular reflex Cardiac: RRR without M/G/R Lungs: CTA without W/R/R Abdomen: Normoactive X4. Soft and nontender in all quadrants. Extremities: No peripheral clubbing cyanosis or edema Neuro: A&O X4 cranial nerves II through XII are grossly intact no focal neuro deficits Skin: No obvious skin lesions or rashes Psych: Appropriate affect pleasant and cooperative Results & Data Results & Data ([facility]) Vital Signs (Past 12 Hours) Vital Signs Temp Pulse Resp BP Pulse Ox 07/12/21 15:53 36.4 C L 79 18 165/84 H 98 07/12/21 07:42 36.5 C 60 16 148/82 H 95 Laboratory Results UDS obtained from urine and lab. Completely negative. Did discuss with lab and should be positive with Suboxone. PG Care Time/CCT Total # of Minutes Spent Total Time Spent with Patient: Total time spent is greater than 50% in coordination of care (as documented) at patient's floor/unit and/or counseling patient: [place] [address] Subseq Obs Care Lvl 3 Patient Type Established History Detailed Exam Detailed Medical Decision Making Moderate Complexity Diagnoses Nausea & vomiting R11.2 Vomiting Intractability: intractable Vomiting type: unspecified Constipation K59.00 Renal mass N28.89 Hypertension I10 Hypertension type: unspecified Murry esophagus K22.719 Murry's esophagus type: with dysplasia of unspecified degree (1) Nausea & vomiting Vomiting Intractability: intractable Vomiting type: unspecified Qualified Code(s): R11.2 - Nausea with vomiting, unspecified (2) Hypertension Hypertension type: unspecified Qualified Code(s): I10 - Essential (primary) hypertension (3) Murry esophagus Murry's esophagus type: with dysplasia of unspecified degree Qualified Code(s): K22.719 - Murry's esophagus with dysplasia, unspecified
[2021-07-13] MEDS: METOCLOPRAMIDE HCL INJ 5 MG/ML 2 ML VIAL IV SCH ×3 (00:38→12:13)
[2021-07-13] MEDS: SODIUM CHLORIDE 0.9% 1000ML 1,000 ML IV SCH (06:49)
[2021-07-13] MEDS: lisinopril 20 MG TAB PO SCH (08:27)
[2021-07-13] MEDS: CITALOPRAM 20 MG TAB PO SCH (08:27)
[2021-07-13] MEDS: FAMOTIDINE 20 MG TAB PO SCH (08:27)
[2021-07-13] MEDS: PANTOprazole 40 MG TAB PO SCH (08:27)
[2021-07-13] MEDS: SUCRALFATE 1 GM/10 ML UDC PO SCH ×2 (08:28→10:26)
[2021-07-13] MEDS: BUPRENORPHINE/NALOXONE 8/2 MG TAB SL SCH (08:36)
--- NOTE | 2021-07-13 18:12 | Discharge Summary ---
Date of Service July 13, 2021 Admission HPI Per Admitting Provider This is a 55-year-old male with medical history of hypertension, esophagitis/Murry's esophagus, previous multiple episodes of intractable nausea vomiting thought to be gastroparesis that presents today with similar nausea and vomiting. Patient seems a little lethargic, likely secondary to Phenergan administration, but is otherwise a decent historian. Patient is previously been admitted with similar complaints, I do see that he had an EGD during his last visit was essentially unremarkable. He was told that he needs to get an outpatient gastric emptying study. Patient tells me he has a scheduled in August. In addition, he was found to have a soft tissue mass on his kidney. He has an appointment in July at [facility] to have a nephrectomy. However, patient started having symptoms again late last week after a trip for a wedding to [place]. He tells me that he was eating about times and feels this may have contributed. Work-up also revealed moderate constipation. He was given famotidine, Benadryl, Reglan, and hydration without any relief. Therefore the patient is now being placed in observation for further treatment. Principal Diagnosis 1. Intractable nausea and vomitingresolved 2. Chronic Suboxone use 3. Constipationtreated and resolved Discharge Exam General: Resting comfortably in his hospital bed. NAD. HEENT: Head is AT/NC buccal mucosa is moist and pink Neck: No JVD. Negative hepatojugular reflex Cardiac: RRR without M/G/R Lungs: CTA without W/R/R Abdomen: Normoactive X4. Soft and nontender in all quadrants. Extremities: No peripheral clubbing cyanosis or edema Neuro: A&O X4 cranial nerves II through XII are grossly intact no focal neuro deficits Skin: No obvious skin lesions or rashes Psych: Appropriate affect pleasant and cooperative Discharge Data Allergies Allergy/AdvReac Type Severity Reaction Status Date / Time No Known Allergies Allergy Verified 07/11/21 08:36 Consultations 07/11/21 12:32 ED Decision to Admit Stat 07/11/21 17:03 Consult Gastroenterology Routine Assessment & Plan (1) Intractable nausea and vomiting: (2) Constipation: Suspect n/v related to GI dysmotility from possible gastroparesis and constipation related to chronic Suboxone use. I did have a long conversation with the patient about repeated trips to the ER for chronic GI symptoms which will need to be worked up as an outpatient. Due to [facility] not being able to perform GES soon, will attempt to schedule at an outside facility. He will remain on Reglan 10 mg every 6 hours, Protonix 40 mg BID and Carafate 1 g ACHS. Diet can be advanced to a low fat and low fiber content. Encouraged smaller, more frequent eating. No plan for invasive GI work up as he has had numerous upper endoscopies in the past, most recently just three months ago by Dr. Herman. Will start patient on a GoLytely bowel preparation to eliminate the constipation in an effort to improve his nausea and vomiting as well. Hospital Course (1) Nausea & vomiting: * Chronic intractable nausea and vomiting * Exact etiology unclear. Timed gastric emptying study as an outpatient by GI * EGD done in March showing no acute pathology * Other possibilities are acute withdrawal (which I am favoring). With [place] of the [place] drug [place], patient comes into the hospital close to when his Suboxone would be due. I did a UDS from urine and lab that has shown no evidence of opiates. I confirmed with lab and if patient had Suboxone in system, it would yield positive. His nausea and vomiting have resolved with resumption of his Suboxone upon hospitalization. * Other possibilities are cyclic vomiting syndrome or cannabis hyperemesis syndrome (although patient denies cannabis use. His UDS is not positive for cannabis so this is unlikely) * GI did see patient while in house who is recommending that he follow-up for his time to gastric emptying study * They provided a colonoscopy prep for his fecal retention; however, his nausea and vomiting resolved prior to this * He is tolerating oral intake * At this point time, okay to discharge to home to follow-up with GI (2) Constipation: * See above (3) Renal mass: No acute treatment, patient follow-up at [facility] as previously instructed (4) Hypertension: Blood pressure is currently 121/74 without medication (5) Murry esophagus: Patient is on dexilant, famotidine, and Carafate, will order pharmacy equivalents with the patient is here Plan of care to be discussed with Dr. Castaneda. Further orders as warranted. Total Time Total Time Spent Total Time Spent (In Minutes): 20 minutes Discharge Plan Discharge Items Patient Disposition: Home - Self-Care Reason For Visit: intractable n/v Discharge Diagnosis: intractable N/V Activity: Resume your previous activity Non-emergency contact: Primary Care Provider, Rackman, [employer] and Urologist Call non-emergency contact if: you have any medication questions Follow-up/Referrals: Rafiq Boucher III, MD [Primary Care Provider] - 07/18/21 3:00 pm Diet: Regular Addtl Attending Provider Instructions: - maintain a low residue diet--> advance as tolerated - follow up with GI for timed gastric emptying study - follow up with Nephrology and Urology regarding your newly diagnosed prostate concern and possible renal cell carcinoma - talk to Suboxone prescriber about weaning this medication - return to the ED in need of Emergency NOTE THAT GABAPENTIN AND CELEXA are coming up as new medications. These are NOT NEW but were held initially until your dose was verified. Continue these medication as prior to hospitalization Pending Studies at Discharge: No Stand-Alone Forms: My [facility] [employer], Work/School Release Medications and DC Order Prescriptions: New citalopram 20 mg Tablet 20 mg PO QAM Qty: 99 RF: 0 gabapentin 300 mg Capsule 300 mg PO TID PRN (Reason: pain) Qty: 99 RF: 0 Continued lisinopril 20 mg tablet 20 mg PO QAM Qty: 30 RF: 11 dexlansoprazole 60 mg capsule,biphase delayed releas 60 mg PO DAILY Qty: 30 RF: 2 gabapentin 300 mg capsule 300 mg PO TID PRN (Reason: Pain) Qty: 90 RF: 5 clonidine HCl 0.1 mg tablet 0.1 mg PO BID PRN (Reason: Anxiety) Qty: 60 RF: 1 citalopram 20 mg tablet 20 mg PO QAM Qty: 90 RF: 3 buprenorphine-naloxone 8-2 mg Tablet, Sublingual 1 tab SUBLINGUAL BID RF: 0 fluoride (sodium) [PreviDent 5000 Booster Plus] 1.1 % paste 1 applic dental HS RF: 0 metoclopramide HCl 10 mg tablet 10 mg PO Q6H PRN (Reason: nausea and vomiting) Qty: 30 RF: 0 ondansetron HCl 4 mg tablet 4 mg PO Q8 PRN (Reason: Nausea) RF: 0 polyethylene glycol 3350 [Miralax] 17 gram Powder In Packet 17 g PO DAILY Qty: 100 RF: 0 pantoprazole [Protonix] 40 mg tablet,delayed release (DR/EC) 40 mg PO BID Qty: 60 RF: 0 sucralfate 100 mg/mL Suspension 1 g PO ACHS Qty: 400 RF: 0 famotidine [Pepcid] 40 mg tablet 20 mg PO BID Qty: 90 RF: 3 Discharge Orders: Discharge Order (Routine); Ordered 07/13/21 Ordered By: Fiordaliza Calvo Admission Data Admit Date/Time: 07/11/21 14:42 Attending Provider: Perico Castaneda Admit Provider: Tyler Maddox Primary Care Provider: Rafiq Boucher III Other Providers: Tyler Maddox ; Vishal Herman Other Interventions: Discharge Summary Assessment (RN) Last Done: 07/13/21 11:26 Supervising Physician Co-Signing Physician Notes Patient seen and examined on the day of discharge. I agree with the discharge summary by Fiordaliza BOURNE. I have reviewed the chart including labs, imaging and plans for discharge. patient feeling better, tolerating diet - Nausea and vomiting: needs to get gastric emptying study could be related to constipation, this was treated with GoLytely, moved bowels could be related to Suboxone use, he says he has tried to stop but cannot wean off [place] [address] OBS Care - Discharge Patient Type Established Diagnoses Nausea & vomiting R11.2 Vomiting Intractability: intractable Vomiting type: unspecified Constipation K59.00 Renal mass N28.89 Hypertension I10 Hypertension type: unspecified Murry esophagus K22.719 Murry's esophagus type: with dysplasia of unspecified degree Time Spent (min) 20
== END 2021-07-13 13:09 | disposition home or self-care (01) ==
LOC: ED 07:48 → 3W 07:48 → SUATTDRO 14:42 → 3W 16:17

== ENCOUNTER 2021-11-26 23:19 | Inpatient (IN) ==
[2021-11-26] MEDS ORDERED: HYDROmorphone INJ 0.5 MG/0.5 ML SYR IV STA (23:42)
[2021-11-26] MEDS ORDERED: ONDANSETRON INJ 2 MG/ML 2 ML VIAL IV STA (23:42)
[2021-11-26] MEDS ORDERED: SODIUM CHLORIDE 0.9% 500 ML IV STA (23:42)
--- NOTE | 2021-11-26 23:47 | Emergency Department Note ---
Impression & Plan SBO (small bowel obstruction) Evaluation by the [facility] Hospitalist ED Provider Note NAME: ERENDIRA OTT AGE: 56 SEX: M ARRIVES VIA: Walk-In INFORMANT: Patient ED PROVIDER(S): Madisyn Raman DO CHIEF COMPLAINT: Abdominal pain PLAN: Disposition: Evaluation by the [facility] Condition: Stable MEDICAL DECISION MAKING: This is a 56-year-old male patient with an extensive abdominal surgical history who presents to the emergency department with a sudden onset of severe epigastric and left upper quadrant abdominal pain. CT shows evidence of a distal small bowel obstruction. Patient had no further vomiting while here in the emergency department. His pain was well controlled with the IV analgesia. He was placed on a normal saline drip. [facility]. Triage Nursing notes reviewed and agree with them. Prior medical records reviewed Vital Signs: reviewed and remarkable for hypertension Differential diagnosis: Perforated viscus, small bowel obstruction, gastritis, ulcerative disease, ile us, constipation ER treatment provided: IV normal saline IV Dilaudid IV Zofran IV normal saline drip Diagnostics interpreted by me: Cardiac Monitoring: Normal sinus rhythm at 81 Laboratory studies: See below Imaging studies: As per stat rad CT abdomen pelvis with contrast Status post gastric pull-through. Multiple perigastric surgical clips. Diffuse small bowel dilatation with air-fluid levels. Abundant stool in the right colon. Gas and stool filled the remainder of the colon to the rectum. Rectosigmoid colon wall thickening. Considerations included generalized ileus versus small bowel obstruction fecalization of stool within the distal small bowel suggests a distal small bowel obstruction. No bowel wall pneumatosis. No free gas. Appendix is unremarkable. No evidence for diverticulitis. No free fluid. Other findings: Liver is unremarkable. Gallbladder has been removed. No biliary ductal dilatation. Pancreas is unremarkable. Spleen is unremarkable. No obstructive uropathy. Focal collapse with a cortical defect of the lower pole of the left kidney. Redemonstrated mild urinary bladder wall thickening. No aortic aneurysm. Atherosclerotic vascular calcifications HPI: 56/M arrives for evaluation of severe abdominal pain. Approximately 4 hours ago, the patient developed epigastric and left upper quadrant abdominal pain with some associated nausea and vomiting. Patient has an extensive intra- abdominal surgical history with one previous small bowel obstruction that resolved on its own. Patient had eaten dinner and developed the pain fairly suddenly and it has been unrelenting since then. He did also have some chills but no urinary symptoms. The patient started Linzess approximately 1 week ago for chronic constipation and has had diarrhea since that time. ROS: See above HPI for pertinent positives & negatives. A total of 10 systems reviewed and were otherwise negative. PAST MEDICAL HISTORY:See Below PAST SURGICAL HISTORY:See Below FAMILY HISTORY:See Below SOCIAL HISTORY:See Below HOME MEDICATIONS:See list ALLERGIES:None VITALS:See Below PHYSICAL EXAMINATION: HEENT: Head - normocephalic and atraumatic. Pupils are equal, round, and reactive to light. Extraocular eye muscles are intact, and sclera are anicteric. Nose - moist nasal mucosa without discharge. Mouth - moist buccal mucosa. Oropharynx is nonerythematous and there is no tonsillar exudate or edema noted. Neck: Supple; no cervical lymphadenopathy noted Heart: Regular rate and rhythm. There is a normal S1 and S2 with no murmurs, c licks, or gallops appreciated. Lungs: Clear to auscultation bilaterally with no wheezes, rales, or rhonchi. Abdomen: Distended with moderate pain to palpation in the left upper quadrant over his surgical scar. There were high-pitched bowel sounds throughout the abdomen. There are no palpable pulsatile masses or hepatosplenomegaly. There is no guarding, rigidity, or rebound noted. Extremities: No evidence of cyanosis, clubbing, or edema. There are easily palpable peripheral pulses. Skin: warm and dry with good turgor and no rashes. ED COURSE: Times/Reassessments: 2330: The patient was evaluated in room C7. A complete history and physical was performed. Previous electronic medical records were reviewed. An order was placed for continuous cardiac monitoring and the patient was in sinus tachycardia at a rate of 91. An IV lock was initiated and labs are drawn as above. The patient was started on a 500 cc bolus of saline. He was given IV Dilaudid and IV Zofran. He will go for CT scan of the abdomen and pelvis to further evaluate for small bowel obstruction and/or perforation. CT scan showed evidence of a distal small bowel obstruction. The patient had no further vomiting and was passing some small amount of gas and was occasionally having persistent pain. I discussed the case with the [facility] hospitalist and they will evaluate for further management. Madisyn Raman DO Past Med/Surg History Medical History (Updated 11/27/21 @ 03:14 by Madisyn Raman DO) Abdominal pain Recently admitted for abdominal pain- pain improved since discharged on 01/03/21 Abnormal weight loss 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 dx'ed with esophageal cancer in 2007 EGD in 10/2020 did show Barretts with esophagitis and ulcers - put on PPI Candidal esophagitis S/p treatment after EGD Esophageal cancer 2007 s/p chemo and radiation Fissure, anal Pt unsure if still present- getting repeat colonoscopy in the future Fracture of multiple thoracic vertebrae 25 years ago Gastro-esophageal reflux disease with esophagitis Uncontrolled Hepatitis C [id number] Hypertension Lumbago Restless leg No current issues 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 Withdrawal from opioids Was on increased opioids in the past secondary to chronic back pain- weaned off pain medications- was taking herbal supplement (Kraton)= now using Suboxone to taper off supplement Surgical History H/O radical prostatectomy History of anesthesia reaction pt states he woke up during 2 EGD procedures and during shoulder sx History of colonoscopy History of cystoscopy History of esophagectomy 2007 History of esophagogastroduodenoscopy (EGD) recent 10/31/2020 History of nephrectomy, left History of repair of rotator cuff right and left shoulder History of right knee surgery meniscectomy Hx laparoscopic cholecystectomy Status post surgery neck surgery with hardware Family History Father Hypertension Myocardial infarction Coronary heart disease Mother Cancer Brother Hypertension Other No family history of adverse response to anesthesia Denies family history of Ovarian cancer Prostate cancer Breast cancer Colorectal cancer Social History Smoking Status: Never smoker Tobacco Type: Cigarettes Years Smoked: 10; Second Hand Exposure: No; Hx Alcohol Use: No Hx Substance Use: No Preferred Language: Trinidadian Communication Ability: Effective Visual Impairment: No Limitations Hearing Ability: Normal Supervisor Instrument Maintenance Required: No Beliefs That Will Affect Care: None marital status: Current Living Situation: Spouse current occupational status: employed 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 Feels Safe at Home: Yes Childhood Exposure to Second-Hand Smoke: Yes caffeine: Yes Dental Care, Regularly: Yes Physical Activity Frequency: Daily Seatbelt Use: always Sunscreen Use: No Assistive Devices: None Allergies Allergies Allergy/AdvReac Type Severity Reaction Status Date / Time No Known Allergies Allergy Verified 11/27/21 02:34 Home Meds Home Medications Medication Instructions Recorded Confirmed buprenorphine 8 mg-naloxone 2 mg 1 tab SUBLINGUAL BID 01/09/21 11/27/21 sublingual tablet fluoride (sodium) 1.1 % dental 1 applic DENTAL HS 04/13/21 11/27/21 paste (PreviDent 5000 Booster Plus) famotidine 40 mg tablet (Pepcid) 20 mg PO QPM 11/27/21 11/27/21 fluticasone propionate 50 1 - 2 spray INTRANASAL BID 11/27/21 11/27/21 mcg/actuation nasal spray,suspension linaclotide 72 mcg capsule 72 mcg PO DAILY 11/27/21 11/27/21 (Linzess) sucralfate 100 mg/mL oral 1 g PO ACHS PRN 11/27/21 11/27/21 suspension Previous Rx's Medication Instructions Recorded polyethylene glycol 3350 17 gram 17 g PO DAILY #100 ea 07/07/21 oral powder packet (Miralax) gabapentin 300 mg capsule 300 mg PO TID PRN #90 cap 07/11/21 citalopram 20 mg tablet 20 mg PO QAM #90 tab 07/12/21 dexlansoprazole 60 mg 60 mg PO DAILY #90 cap 09/19/21 capsule,biphase delayed release lisinopril 20 mg tablet 20 mg PO QAM #30 tab 10/01/21 clonidine HCl 0.1 mg tablet 0.1 mg PO BID PRN #60 tab 11/09/21 Results & Data (ED) Vital Signs Vital Signs - 24 hr 11/26/21 23:22 11/27/21 00:30 11/27/21 01:30 Temperature 37.0 C Temperature Source Temporal Artery Scan Pulse Rate 91 H 88 86 Pulse Rate from SpO2 Sensor 88 86 Respiratory Rate 22 18 19 Respiratory Effort / Characteristics Non-Labored Spontaneous Respiratory Depth Normal Blood Pressure 159/94 H 144/96 H 137/88 Blood Pressure Mean 115 112 104 Pulse Oximetry 100 96 98 Oxygen Delivery Method Room Air Room Air Room Air Sepsis New/Unexplained Change in Mental Status N/A Sepsis Action Taken by Nursing No Action Required 11/27/21 02:48 Temperature Temperature Source Pulse Rate 84 Pulse Rate from SpO2 Sensor 85 Respiratory Rate 21 Respiratory Effort / Characteristics Respiratory Depth Blood Pressure 127/85 Blood Pressure Mean 99 Pulse Oximetry 97 Oxygen Delivery Method Room Air Sepsis New/Unexplained Change in Mental Status Sepsis Action Taken by Nursing Laboratory Data Result diagrams: 11/26/21 23:48 11/26/21 23:48 Lab Results 11/26/21 11/26/21 11/27/21 Range/Units 23:48 23:48 02:54 WBC 10.31 (4.8-10.8) K/uL RBC 4.32 L (4.7-6.1) M/uL Hgb 10.8 L (14.0-18.0) g/dL Hct 34.8 L (42-52) % MCV 80.6 (80-100) fL MCH 25.0 (25-34) pg MCHC 31.0 L (32-36) g/dL RDW Std Deviation 45.8 (36.4-46.3) fL RDW Coeff of Dorothy 15.6 H (11.5-14.5) % Plt Count 310 (130-400) K/uL MPV 10.1 (7.4-10.4) fL Immature Gran % (Auto) 0.1 % Neut % (Auto) 78.1 % Lymph % (Auto) 15.2 % Jackson % (Auto) 4.8 % Eos % (Auto) 1.4 % Baso % (Auto) 0.4 % Neut # (Auto) 8.05 H (1.4-6.5) K/uL Lymph # (Auto) 1.57 (1.2-3.4) K/uL Jackson # (Auto) 0.50 (0.11-0.59) K/uL Eos # (Auto) 0.14 (0-0.5) K/uL Baso # (Auto) 0.04 (0-0.2) K/uL Immature Gran # (Auto) 0.01 (0.00-0.02) K/uL Sodium 136 (136-145) mmol/L Potassium 4.3 (3.5-5.1) mmol/L Chloride 107 (98-107) mmol/L Carbon Dioxide 21 (21-32) mmol/L Anion Gap 8 (3-11) BUN 15 (6-23) mg/dl Creatinine 0.87 (0.6-1.4) mg/dl Est Cr Clr Drug Dosing 92.3 ml/min Est GFR ( Amer) 110.3 ml/min Est GFR (Non-Af Amer) 95.1 ml/min BUN/Creatinine Ratio 17.2 (10-20) Glucose 118 H (70-99(Fasting)) mg/dl Calcium 8.9 (8.5-10.1) mg/dl Total Bilirubin 0.3 (0.2-1.0) mg/dl AST 14 (13-39) U/L ALT 13 (7-52) U/L Alkaline Phosphatase 93 (34-104) U/L Total Protein 6.9 (6.0-8.3) gm/dl Albumin 4.1 (3.4-5.0) gm/dl Globulin 2.8 (2.5-4.0) gm/dl Albumin/Globulin Ratio 1.5 (0.9-2) Lipase 251 H (11-82) U/L Urine Color Urine Appearance (Clear) Urine pH (4.5-7.5) Ur Specific [place] (1.000-1.030) Urine Protein (Negative) Urine Glucose (UA) (Negative) Urine Ketones (Negative) Urine Blood (Negative) Urine Nitrite (Negative) Urine Bilirubin (Negative) Urine Urobilinogen (Negative) Ur Leukocyte Esterase (Negative) SARS-CoV-2, RNA, NAAT NEGATIVE (NEGATIVE) 11/27/21 Range/Units Unknown WBC (4.8-10.8) K/uL RBC (4.7-6.1) M/uL Hgb (14.0-18.0) g/dL Hct (42-52) % MCV (80-100) fL MCH (25-34) pg MCHC (32-36) g/dL RDW Std Deviation (36.4-46.3) fL RDW Coeff of Dorothy (11.5-14.5) % Plt Count (130-400) K/uL MPV (7.4-10.4) fL Immature Gran % (Auto) % Neut % (Auto) % Lymph % (Auto) % Jackson % (Auto) % Eos % (Auto) % Baso % (Auto) % Neut # (Auto) (1.4-6.5) K/uL Lymph # (Auto) (1.2-3.4) K/uL Jackson # (Auto) (0.11-0.59) K/uL Eos # (Auto) (0-0.5) K/uL Baso # (Auto) (0-0.2) K/uL Immature Gran # (Auto) (0.00-0.02) K/uL Sodium (136-145) mmol/L Potassium (3.5-5.1) mmol/L Chloride (98-107) mmol/L Carbon Dioxide (21-32) mmol/L Anion Gap (3-11) BUN (6-23) mg/dl Creatinine (0.6-1.4) mg/dl Est Cr Clr Drug Dosing ml/min Est GFR ( Amer) ml/min Est GFR (Non-Af Amer) ml/min BUN/Creatinine Ratio (10-20) Glucose (70-99(Fasting)) mg/dl Calcium (8.5-10.1) mg/dl Total Bilirubin (0.2-1.0) mg/dl AST (13-39) U/L ALT (7-52) U/L Alkaline Phosphatase (34-104) U/L Total Protein (6.0-8.3) gm/dl Albumin (3.4-5.0) gm/dl Globulin (2.5-4.0) gm/dl Albumin/Globulin Ratio (0.9-2) Lipase (11-82) U/L Urine Color Yellow Urine Appearance Clear (Clear) Urine pH 5.0 (4.5-7.5) Ur Specific [place] 1.037 H (1.000-1.030) Urine Protein Negative (Negative) Urine Glucose (UA) Negative (Negative) Urine Ketones Negative (Negative) Urine Blood Negative (Negative) Urine Nitrite Negative (Negative) Urine Bilirubin Negative (Negative) Urine Urobilinogen Negative (Negative) Ur Leukocyte Esterase Negative (Negative) SARS-CoV-2, RNA, NAAT (NEGATIVE) Administered Medications Sodium Chloride (Nss) 500 mls @ 125 mls/hr IV .Q4H YANETH Stop: 12/27/21 02:29 Last Admin: 11/27/21 02:51 Dose: 125 mls/hr Documented by: [id number] Discontinued Medications Hydromorphone HCl (Hydromorphone Inj 0.5 Mg/0.5 Ml Syr) 0.5 mg IV NOW STA Stop: 11/26/21 23:43 Last Admin: 11/26/21 23:56 Dose: 0.5 mg Documented by: [id number] Sodium Chloride (Nss) 500 mls @ 999 mls/hr IV .Q31M STA Stop: 11/27/21 00:12 Last Infusion: 11/27/21 00:30 Dose: 0 mls/hr Documented by: [id number] Admin: 11/26/21 23:56 Dose: 999 mls/hr Documented by: [id number] Ioversol (Optiray 320 100ml) 94 ml IV ONCE ONE Stop: 11/27/21 01:48 Last Admin: 11/27/21 01:48 Dose: 94 ml Documented by: [id number] Ondansetron HCl (Ondansetron Inj 2 Mg/Ml 2 Ml Vial) 4 mg IV NOW STA Stop: 11/26/21 23:43 Last Admin: 11/26/21 23:56 Dose: 4 mg Documented by: [id number] Discharge Plan Visit Data Chief Complaint: Abdominal Pain Stated Complaint: SEVERE ABD PAIN, NAUSEA, CHILLS ED Provider: Madisyn Raman Discharge Problem: SBO (small bowel obstruction) Forms Stand Alone Forms: [facility] Prescriptions Prescriptions: No Action gabapentin 300 mg capsule 300 mg PO TID PRN (Reason: Pain) Qty: 90 RF: 5 citalopram 20 mg tablet 20 mg PO QAM Qty: 90 RF: 3 lisinopril 20 mg tablet 20 mg PO QAM Qty: 30 RF: 11 clonidine HCl 0.1 mg tablet 0.1 mg PO BID PRN (Reason: Anxiety) Qty: 60 RF: 1 dexlansoprazole 60 mg capsule,biphase delayed releas 60 mg PO DAILY Qty: 90 RF: 3 buprenorphine-naloxone 8-2 mg Tablet, Sublingual 1 tab SUBLINGUAL BID RF: 0 fluoride (sodium) [PreviDent 5000 Booster Plus] 1.1 % paste 1 applic dental HS RF: 0 polyethylene glycol 3350 [Miralax] 17 gram Powder In Packet 17 g PO DAILY Qty: 100 RF: 0 sucralfate 100 mg/mL suspension 1 g PO ACHS PRN (Reason: Acid Reflux) RF: 0 famotidine [Pepcid] 40 mg tablet 20 mg PO QPM RF: 0 fluticasone propionate 50 mcg/actuation spray,suspension 1 - 2 spray intranasal BID RF: 0 Linzess 72 mcg capsule 72 mcg PO DAILY RF: 0 Referrals Referrals: Carolin Dhillon CRNP [Nurse Practitioner] -
[2021-11-27 00:01] LABS: Basophils # (auto) 0.04 K/uL (0-0.2); Basophils % (auto) 0.4 %; Eosinophils # (auto) 0.14 K/uL (0-0.5); Eosinophils % (auto) 1.4 %; Hematocrit (blood only) 34.8 % (42-52); Hemoglobin 10.8 g/dL (14.0-18.0); Immature Granulocytes # (auto) 0.01 K/uL (0.00-0.02); Immature Granulocytes % (auto) 0.1 %; Lymphocytes # (auto) 1.57 K/uL (1.2-3.4); Lymphocytes % (auto) 15.2 %; Mean Corpuscular Volume 80.6 fL (80-100); Mean Platelet Volume 10.1 fL (7.4-10.4); Monocytes % (auto) 4.8 %; Neutrophils # (auto) 8.05 K/uL (1.4-6.5); Neutrophils % (auto) 78.1 %; Platelet Count 310 K/uL (130-400); RDW Coefficient of Variation 15.6 % (11.5-14.5); RDW Standard Deviation 45.8 fL (36.4-46.3); Red Blood Count 4.32 M/uL (4.7-6.1); White Blood Count 10.31 K/uL (4.8-10.8)
[2021-11-27 00:27] LABS: Albumin Globulin Ratio 1.5 (0.9-2); Albumin Level 4.1 gm/dl (3.4-5.0); BUN Creatinine Ratio 17.2 (10-20); Bilirubin,Total 0.3 mg/dl (0.2-1.0); Calcium 8.9 mg/dl (8.5-10.1); Creatinine Clr Calc Pharmacy 92.3 ml/min; Est GFR (African American) 110.3 ml/min; Est GFR (Non-African American) 95.1 ml/min; Globulin 2.8 gm/dl (2.5-4.0); Potassium 4.3 mmol/L (3.5-5.1); Total Protein 6.9 gm/dl (6.0-8.3)
[2021-11-27] MEDS ORDERED: OPTIRAY 320 100ml IV ONE (01:47)
[2021-11-27] MEDS: SODIUM CHLORIDE 0.9% 500 ML IV SCH ×2 (02:51→07:47)
[2021-11-27 03:00] LABS: Appearance Urine Clear (Clear); Bilirubin Urine Negative (Negative); Blood Urine Negative (Negative); Color Urine Yellow; Glucose Urine UA Negative (Negative); Ketones Urine Negative (Negative); Leukocyte Esterase Urine Negative (Negative); Nitrite Urine Negative (Negative); Protein Urine Negative (Negative); Specific Gravity Urine 1.037 (1.000-1.030); Urobilinogen Urine Negative (Negative)
--- NOTE | 2021-11-27 03:35 | History & Physical Report ---
Date of Service November 27, 2021 Assessment & Plan (1) SBO (small bowel obstruction): Plan: Small bowel obstruction/intractable nausea vomiting/abdominal pain/chronic constipation/opioid abuse- NPO IV fluids LR at 125 mils per hour Zofran 4 mg IV every 6 hours as needed Famotidine 20 mg IV every 12 hours Acetaminophen 1000 mg IV every 8 hours as needed mild pain or fever Toradol 30 mg IV every 6 hours as needed moderate pain Morphine sulfate 2 mg IV every 3 hours as needed severe pain Zosyn 3.375 mg IV every 8 hours (2) Intractable nausea and vomiting: Plan: Zofran 4 mg IV every 6 hours as needed (3) Opioid abuse: Plan: Hold Suboxone due to bowel obstruction Monitor for opioid withdrawal Would advise change from Linzess to Movantik upon discharge (4) Constipation: Plan: Likely secondary to Suboxone (5) Abdominal pain: Plan: See above (6) Murry esophagus: Plan: Esophageal cancer/Murry's esophagus- Famotidine 20 mg IV every 12 hours (7) Depression: Plan: Hold citalopram until able to take oral medications (8) Hypertension: Plan: Hold lisinopril and as needed clonidine (9) Prostate cancer: Plan: Status post surgery No acute symptoms at this time History of Present Illness Chief Complaint: The patient presents to the emergency department with complaint of acute onset of abdominal discomfort, nausea and vomiting that began about 4 hours after eating supper this evening. Primary Care Provider: Rafiq Boucher MD The patient is a 56-year-old male with a past medical history including prostate cancer, tobacco abuse, depression, opioid abuse, renal mass, constipation, small bowel obstruction, Murry's esophagus and hypertension. Patient had recent admissions from 07/05-07/07/2021, and 07/11-07/13/2021 for issues with constipation, nausea and vomiting. He presently is on Suboxone for pain management, due to change from previous narcotic. It was thought that this medication was contributing to his issues with constipation, and he had been more recently started on Linzess. CT scan of abdomen and pelvis is consistent with distal small bowel obstruction. From the ED the patient received the following: Normal saline 500 mill bolus, followed by 500 mils at high 25 mL's per hour. Dilaudid 0.5 mg IV and Zofran 4 mg IV. Allergies Allergy/AdvReac Type Severity Reaction Status Date / Time No Known Allergies Allergy Verified 11/27/21 02:34 Home Medications Medication Instructions Recorded Confirmed Type buprenorphine 8 mg-naloxone 2 mg 1 tab SUBLINGUAL BID 01/09/21 11/27/21 History sublingual tablet fluoride (sodium) 1.1 % dental 1 applic DENTAL HS 04/13/21 11/27/21 History paste (PreviDent 5000 Booster Plus) polyethylene glycol 3350 17 gram 17 g PO DAILY #100 ea 07/07/21 11/27/21 Rx oral powder packet (Miralax) gabapentin 300 mg capsule 300 mg PO TID PRN #90 cap 07/11/21 11/27/21 Rx citalopram 20 mg tablet 20 mg PO QAM #90 tab 07/12/21 11/27/21 Rx dexlansoprazole 60 mg 60 mg PO DAILY #90 cap 09/19/21 11/27/21 Rx capsule,biphase delayed release lisinopril 20 mg tablet 20 mg PO QAM #30 tab 10/01/21 11/27/21 Rx clonidine HCl 0.1 mg tablet 0.1 mg PO BID PRN #60 tab 11/09/21 11/27/21 Rx famotidine 40 mg tablet (Pepcid) 20 mg PO QPM 11/27/21 11/27/21 History fluticasone propionate 50 1 - 2 spray INTRANASAL BID 11/27/21 11/27/21 History mcg/actuation nasal spray,suspension linaclotide 72 mcg capsule 72 mcg PO DAILY 11/27/21 11/27/21 History (Linzess) sucralfate 100 mg/mL oral 1 g PO ACHS PRN 11/27/21 11/27/21 History suspension Past Med/Surg History Medical History (Updated 11/27/21 @ 03:14 by Madisyn Raman DO) Abdominal pain Recently admitted for abdominal pain- pain improved since discharged on 01/03/21 Abnormal weight loss 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 dx'ed with esophageal cancer in 2007 EGD in 10/2020 did show Barretts with esophagitis and ulcers - put on PPI Candidal esophagitis S/p treatment after EGD Esophageal cancer 2007 s/p chemo and radiation Fissure, anal Pt unsure if still present- getting repeat colonoscopy in the future Fracture of multiple thoracic vertebrae 25 years ago Gastro-esophageal reflux disease with esophagitis Uncontrolled Hepatitis C [id number] Hypertension Lumbago Restless leg No current issues 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 Withdrawal from opioids Was on increased opioids in the past secondary to chronic back pain- weaned off pain medications- was taking herbal supplement ([place]on)= now using Suboxone to taper off supplement Surgical History H/O radical prostatectomy History of anesthesia reaction pt states he woke up during 2 EGD procedures and during shoulder sx History of colonoscopy History of cystoscopy History of esophagectomy 2007 History of esophagogastroduodenoscopy (EGD) recent 10/31/2020 History of nephrectomy, left History of repair of rotator cuff right and left shoulder History of right knee surgery meniscectomy Hx laparoscopic cholecystectomy Status post surgery neck surgery with hardware Family History Father Hypertension Myocardial infarction Coronary heart disease Mother Cancer Brother Hypertension Other No family history of adverse response to anesthesia Denies family history of Ovarian cancer Prostate cancer Breast cancer Colorectal cancer Social History Smoking Status: Never smoker Tobacco Type: Cigarettes Years Smoked: 10; Second Hand Exposure: No; Hx Alcohol Use: No Hx Substance Use: No Preferred Language: Divehi Communication Ability: Effective Visual Impairment: No Limitations Hearing Ability: Normal Weight Clerk Required: No Beliefs That Will Affect Care: None marital status: Current Living Situation: Spouse current occupational status: employed 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 Feels Safe at Home: Yes Childhood Exposure to Second-Hand Smoke: Yes caffeine: Yes Dental Care, Regularly: Yes Physical Activity Frequency: Daily Seatbelt Use: always Sunscreen Use: No Assistive Devices: None Review of Systems Review of Systems: The patient denies chest pain, palpitations, shortness of breath, dyspnea on exertion, cough, lower extremity swelling, sore throat, fevers, chills, sweats, blood in urine or stool, dysuria, urinary frequency or urgency, lightheadedness, dizziness, headache, memory loss, loss of consciousness, rash, abnormal bruising or bleeding, imbalance, focal or generalized weakness, numbness or tingling in arms or legs, generalized arthralgias or myalgias, back or neck pain, or night sweats. The review of systems is otherwise negative other than for that already noted above, and at least 10 systems have been reviewed. Physical Exam Physical Exam: The patient is awake, alert and oriented 3, well developed and well nourished, normocephalic and atraumatic, lying in bed and in no acute distress. HEENT--PERRL, EOMI, mucous membranes and oropharynx dry. Neck--supple. No JVD. No bruits. Thyroid normal, trachea midline, no adenopathy. Heart--normal S1 and S2. No murmurs, rubs or gallops. Lungs--clear bilaterally, no respiratory distress, no accessory muscle use. Abdomen--decreased bowel sounds, mildly firm, nontender post pain medication. Extremities--no cyanosis or clubbing. No edema. Dermatologic--normal skin turgor, normal color, no abnormal lymph nodes, no rash. Neurologic--cranial nerves II through XII grossly intact. Rheumatologic--normal range of motion. Psychiatric--normal affect. Results & Data Results & Data ([facility]) Vital Signs (Past 12 Hours) Vital Signs Temp Pulse Resp BP Pulse Ox 11/27/21 02:48 84 21 127/85 97 11/27/21 01:30 86 19 137/88 98 11/27/21 00:30 88 18 144/96 H 96 11/26/21 23:22 37.0 C 91 H 22 159/94 H 100 Laboratory Results Laboratory Results WBC 10.31 K/uL (4.8-10.8) 11/26/21 23:48 RBC 4.32 M/uL (4.7-6.1) L 11/26/21 23:48 Hgb 10.8 g/dL (14.0-18.0) L 11/26/21 23:48 Hct 34.8 % (42-52) L 11/26/21 23:48 MCV 80.6 fL (80-100) 11/26/21 23:48 MCH 25.0 pg (25-34) 11/26/21 23:48 MCHC 31.0 g/dL (32-36) L 11/26/21 23:48 RDW Std Deviation 45.8 fL (36.4-46.3) 11/26/21 23:48 RDW Coeff of Dorothy 15.6 % (11.5-14.5) H 11/26/21 23:48 Plt Count 310 K/uL (130-400) 11/26/21 23:48 MPV 10.1 fL (7.4-10.4) 11/26/21 23:48 Immature Gran % (Auto) 0.1 % 11/26/21 23:48 Neut % (Auto) 78.1 % 11/26/21 23:48 Lymph % (Auto) 15.2 % 11/26/21 23:48 Chaves % (Auto) 4.8 % 11/26/21 23:48 Eos % (Auto) 1.4 % 11/26/21 23:48 Baso % (Auto) 0.4 % 11/26/21 23:48 Neut # (Auto) 8.05 K/uL (1.4-6.5) H 11/26/21 23:48 Lymph # (Auto) 1.57 K/uL (1.2-3.4) 11/26/21 23:48 Chaves # (Auto) 0.50 K/uL (0.11-0.59) 11/26/21 23:48 Eos # (Auto) 0.14 K/uL (0-0.5) 11/26/21 23:48 Baso # (Auto) 0.04 K/uL (0-0.2) 11/26/21 23:48 Immature Gran # (Auto) 0.01 K/uL (0.00-0.02) 11/26/21 23:48 Sodium 136 mmol/L (136-145) 11/26/21 23:48 Potassium 4.3 mmol/L (3.5-5.1) 11/26/21 23:48 Chloride 107 mmol/L (98-107) 11/26/21 23:48 Carbon Dioxide 21 mmol/L (21-32) 11/26/21 23:48 Anion Gap 8 (3-11) 11/26/21 23:48 BUN 15 mg/dl (6-23) 11/26/21 23:48 Creatinine 0.87 mg/dl (0.6-1.4) 11/26/21 23:48 Est Cr Clr Drug Dosing 92.3 ml/min 11/26/21 23:48 Est GFR ( Amer) 110.3 ml/min 11/26/21 23:48 Est GFR (Non-Af Amer) 95.1 ml/min 11/26/21 23:48 BUN/Creatinine Ratio 17.2 (10-20) 11/26/21 23:48 Glucose 118 mg/dl (70-99(Fasting)) H 11/26/21 23:48 Calcium 8.9 mg/dl (8.5-10.1) 11/26/21 23:48 Total Bilirubin 0.3 mg/dl (0.2-1.0) 11/26/21 23:48 AST 14 U/L (13-39) 11/26/21 23:48 ALT 13 U/L (7-52) 11/26/21 23:48 Alkaline Phosphatase 93 U/L (34-104) 11/26/21 23:48 Total Protein 6.9 gm/dl (6.0-8.3) 11/26/21 23:48 Albumin 4.1 gm/dl (3.4-5.0) 11/26/21 23:48 Globulin 2.8 gm/dl (2.5-4.0) 11/26/21 23:48 Albumin/Globulin Ratio 1.5 (0.9-2) 11/26/21 23:48 Lipase 251 U/L (11-82) H 11/26/21 23:48 Urine Color Yellow 11/27/21 Unknown Urine Appearance Clear (Clear) 11/27/21 Unknown Urine pH 5.0 (4.5-7.5) 11/27/21 Unknown Ur Specific [place] 1.037 (1.000-1.030) H 11/27/21 Unknown Urine Protein Negative (Negative) 11/27/21 Unknown Urine Glucose (UA) Negative (Negative) 11/27/21 Unknown Urine Ketones Negative (Negative) 11/27/21 Unknown Urine Blood Negative (Negative) 11/27/21 Unknown Urine Nitrite Negative (Negative) 11/27/21 Unknown Urine Bilirubin Negative (Negative) 11/27/21 Unknown Urine Urobilinogen Negative (Negative) 11/27/21 Unknown Ur Leukocyte Esterase Negative (Negative) 11/27/21 Unknown SARS-CoV-2, RNA, NAAT NEGATIVE (NEGATIVE) 11/27/21 02:54 Diagnostic Findings [facility] Patient: ERENDIRA OTT (Male) : 61 Status: ER Date: 11/27/21 01:45 Room #: History: PT. REPORTS ABDOMINAL PAIN AND NAUSEA RULE OUT OBSTRUCTION OR PERF? OER ORDER REQ APPENDIX PRESENT OPTI 320 [id number] CC Slices: [id number] Priors: Tech: Ivy Sanchez @ [phone] Exams: CT ABDOMEN & PELVIS With Contrast Contrast: IV Amt: OPTIRAY 320 94 CC Accession Numbers: [id number] Referring Physician: REFERRED SELF Preliminary Findings Only See Final Report For Complete Findings CT ABDOMEN & PELVIS With Contrast: Compared to 07/07/2020. Status post gastric pull-through. Multiple perigastric surgical clips. Diffuse small bowel dilatation with air-fluid levels. Abundant stool in the right colon. Gas and stool filled the remainder of the colon to the rectum. Rectosigmoid colon wall thickening. Considerations included generalized ileus versus distal small bowel obstruction. Fecalization of stool within the distal small bowel suggests a distal small bowel obstruction. No bowel wall pneumatosis. No free gas. Appendix is unremarkable. No evidence for diverticulitis. No free fluid. OTHER FINDINGS: Liver is unremarkable. Gallbladder has been removed. No biliary ductal dilation. Pancreas is unremarkable. Spleen is unremarkable. No obstructive uropathy. Focal collapse with cortical defect of the lower pole of left kidney. Redemonstrated mild urinary bladder wall thickening.. No aortic aneurysm. Atherosclerotic vascular calcifications. Radiologist: Yan Delgado M.D. Study ready at 01:51 and initial results transmitted at 02:16 *This report constitutes a preliminary interpretation only. Non-acute findings felt to be unrelated to the clinical presentation may not be discussed in this report. The study will be interpreted and a final report will be generated by the local Radiologist the following shift. To reach the [facility] radiology department call [phone]. If a discrepancy is found between the preliminary and final interpretations of this study, please notify us via our Client Portal at [email or web address], under QA Exams. You can also fax this report with a description of the discrepancy, or include the final report, to our daytime fax number [phone]. If faxing, please indicate the severity of discrepancy using one of the following categories: [ ] 1 - Agree/Informational [ ] 2 - Unlikely to Affect Management [ ] 3 - Possible Eventual Change of Management [ ] 4 - Probable Immediate Change of Management For all other patient related information, please fax us at [phone]. [id number] Code Status & VTE Plan Code Status Full code VTE Prophylaxis Plan VTE Prophylaxis will be ordered: Yes PG Care Time/CCT Total # of Minutes Spent Total Time Spent with Patient: Total time spent is greater than 50% in coordination of care (as documented) at patient's floor/unit and/or counseling patient: Coding Level of Care Code 95768 Initial Inpt Care Lvl 3 Diagnoses Prostate cancer C61 Intractable nausea and vomiting R11.2 SBO (small bowel obstruction) K56.609 Murry esophagus K22.719 Murry's esophagus type: with dysplasia of unspecified degree Hypertension I10 Hypertension type: unspecified Opioid abuse F11.10 Depression F32.9 Abdominal pain R10.13 Abdominal location: epigastric Constipation K59.00 (1) Murry esophagus Murry's esophagus type: with dysplasia of unspecified degree Qualified Code(s): K22.719 - Murry's esophagus with dysplasia, unspecified (2) Hypertension Hypertension type: unspecified Qualified Code(s): I10 - Essential (primary) hypertension (3) Abdominal pain Abdominal location: epigastric Qualified Code(s): R10.13 - Epigastric pain
--- NOTE | 2021-11-27 07:21 | CT Scan Report ---
ABDOMEN AND PELVIS CT WITH IV CONTRAST CT DOSE: 293.11 mGy.cm HISTORY: Acute generalized abdominal pain with nausea. Clinical concern for possible small bowel obst ruction. Prior esophageal resection with gastric pull-through. Prior prostatectomy. eval for sbo or p erf TECHNIQUE: Multiaxial CT images of the abdomen and pelvis were performed following the IV administrat ion of 94 cc of Optiray, A dose lowering technique was utilized adhering to the principles of ALARA. COMPARISON STUDY: CT abdomen and pelvis 07/05/2021 FINDINGS: The imaged inferior cardiac chambers are unremarkable. Mild bibasilar atelectasis. The study is degra ded by respiratory motion artifact. No pneumatosis or pneumoperitoneum. The spleen, mildly atrophic p ancreas, adrenal glands and liver appear unremarkable. There is suggested focal fatty infiltration wi thin the subcapsular liver on image 22 series 2 which is unchanged. Cholecystectomy. Patent portal ve in. Interval partial nephrectomy of the inferior pole left kidney with resection of the previously descri bed suspicious mass. No hydronephrosis. Mild circumferential urinary bladder wall thickening. Prostat ectomy. Atherosclerosis of the aorta without aneurysm. Unremarkable IVC. No adenopathy identified. Prior esophagectomy with gastric pull-through. Wall thickening of the rectum is likely secondary to p artial distention. There is moderate fecal retention. Normal appendix. There are numerous small bowel air-fluid levels with dilated small bowel loops measuring up to 3.2 cm. Numerous stool-filled loops of small bowel are also noted. No discrete transition point identified. Mild generalized body wall ed garrett. Degenerative changes of the spine, pelvis and hips. IMPRESSION: 1. Moderate fecal retention with numerous stool-filled loops of small bowel suggestive of decreased s mall bowel transit. Additionally, there are several mildly dilated loops of small bowel with scattere d air-fluid levels. No discrete transition point is identified. Findings are suggestive of ileus. A p artial small bowel obstruction is considered less likely. 2. Interval partial nephrectomy of the inferior pole left kidney. 3. Prior esophagectomy with gastric pull-through. 4. Nonspecific urinary bladder wall thickening. Correlate with urinalysis to exclude cystitis. 5. Prostatectomy and cholecystectomy. ACT 112: Negative or not required by law. The above report was generated using voice recognition software. It may contain grammatical, syntax o r spelling errors. Electronically signed by: Mustapha Madrid M.D. 11/27/2021 7:20 AM
[2021-11-27] MEDS ORDERED: PIPERACILL/TAZOBAC CONSULT ACTIVE PRN (07:47)
[2021-11-27] MEDS ORDERED: ACETAMINOPHEN 1,000 MG/100 ML VIAL IV PRN (07:47)
[2021-11-27] MEDS ORDERED: PIPERACILLIN/TAZOBACTAM 3.375 GM in DEXTROSE 5% 100 ML IV ONE (08:30)
[2021-11-27] MEDS: LACTATED RINGER'S 1,000 ML IV SCH ×3 (08:55→23:16)
[2021-11-27] MEDS: FAMOTIDINE 20 MG in SYRINGE 3 ML IV SCH ×2 (08:55→21:17)
[2021-11-27] MEDS: HEPARIN SOD 5,000 UNIT/0.5 ML VIAL SQ SCH ×2 (10:35→21:17)
[2021-11-27] MEDS: PIPERACILLIN/TAZOBACTAM 3.375 GM in DEXTROSE 5% 100 ML IV SCH ×2 (15:37→21:26)
[2021-11-27] MEDS: KETOROLAC 30 MG/ML VIAL IV PRN ×2 (15:37→23:12)
[2021-11-27] MEDS: ONDANSETRON INJ 2 MG/ML 2 ML VIAL IV PRN (16:46)
[2021-11-27] MEDS ORDERED: CALCIUM CARBONATE 500 MG CHEWABLE TAB PO ONE (17:54)
[2021-11-27] MEDS ORDERED: bisacodyL 10 MG SUPP PR STA (17:57)
[2021-11-27] MEDS: MoRPHine SULFATE 2 MG/ML CARP IV PRN (19:20)
[2021-11-27] MEDS: FLUTICASONE PROPIONATE NA SPR 16 GM BTL SCH (19:43)
--- NOTE | 2021-11-27 20:02 | Communication Note ---
Date of Service: November 27, 2021 Patient admitted after midnight. No nausea/vomiting. Reports improvement in abdominal pain. Had two small bowel movements today and CT suggestive of large stool burden. Suspect SBO/Ileus is in setting of constipation. Has good bowel sounds and will allow clear liquids. Will trial suppository and order KUB in AM. Can resume Suboxone which patient is mindful this could be worsening constipation. Will continue IVF and Abx at this current time. Can sidebar GI tomorrow to further discuss any additional needs or intervention.
[2021-11-27] MEDS: BUPRENORPHINE/NALOXONE 8/2 MG TAB SL SCH (21:17)
[2021-11-28] MEDS ORDERED: cloNIDine HCL 0.1 MG TAB PO ONE (01:17)
[2021-11-28] MEDS: ONDANSETRON INJ 2 MG/ML 2 ML VIAL IV PRN (03:43)
[2021-11-28] MEDS: MoRPHine SULFATE 2 MG/ML CARP IV PRN ×4 (03:43→22:42)
[2021-11-28] MEDS: CALCIUM CARBONATE 500 MG CHEWABLE TAB PO PRN ×2 (04:22→22:42)
[2021-11-28] MEDS: PIPERACILLIN/TAZOBACTAM 3.375 GM in DEXTROSE 5% 100 ML IV SCH ×3 (05:43→22:36)
[2021-11-28] MEDS: LACTATED RINGER'S 1,000 ML IV SCH (06:17)
[2021-11-28] MEDS ORDERED: Nursing to Pharmacy Communication SCH (06:30)
[2021-11-28 06:40] LABS: Basophils # (auto) 0.02 K/uL (0-0.2); Basophils % (auto) 0.4 %; Eosinophils # (auto) 0.29 K/uL (0-0.5); Eosinophils % (auto) 6.2 %; Hematocrit (blood only) 28.8 % (42-52); Hemoglobin 8.9 g/dL (14.0-18.0); Immature Granulocytes # (auto) 0.01 K/uL (0.00-0.02); Immature Granulocytes % (auto) 0.2 %; Lymphocytes # (auto) 2.14 K/uL (1.2-3.4); Lymphocytes % (auto) 45.9 %; Mean Corpuscular Hemoglobin 24.7 pg (25-34); Mean Corpuscular Hgb Conc 30.9 g/dL (32-36); Mean Corpuscular Volume 79.8 fL (80-100); Mean Platelet Volume 9.8 fL (7.4-10.4); Monocytes # (auto) 0.39 K/uL (0.11-0.59); Monocytes % (auto) 8.4 %; Neutrophils # (auto) 1.81 K/uL (1.4-6.5); Neutrophils % (auto) 38.9 %; Platelet Count 243 K/uL (130-400); RDW Coefficient of Variation 15.8 % (11.5-14.5); RDW Standard Deviation 46.3 fL (36.4-46.3); Red Blood Count 3.61 M/uL (4.7-6.1); White Blood Count 4.66 K/uL (4.8-10.8)
[2021-11-28 07:18] LABS: Albumin Globulin Ratio 1.6 (0.9-2); Albumin Level 3.2 gm/dl (3.4-5.0); BUN Creatinine Ratio 9.2 (10-20); Bilirubin,Total 0.4 mg/dl (0.2-1.0); Calcium 7.8 mg/dl (8.5-10.1); Creatinine Clr Calc Pharmacy 106.2 ml/min; Est GFR (African American) 116.6 ml/min; Est GFR (Non-African American) 100.6 ml/min; Potassium 3.8 mmol/L (3.5-5.1); Total Protein 5.2 gm/dl (6.0-8.3)
[2021-11-28] MEDS: FAMOTIDINE 20 MG in SYRINGE 3 ML IV SCH ×2 (08:04→20:21)
[2021-11-28] MEDS: FLUTICASONE PROPIONATE NA SPR 16 GM BTL SCH (08:04)
[2021-11-28] MEDS: HEPARIN SOD 5,000 UNIT/0.5 ML VIAL SQ SCH ×2 (08:04→20:19)
[2021-11-28] MEDS ORDERED: ALUMINUM/MAGNESIUM SUSP 30 ML UDC PO STA (09:39)
[2021-11-28] MEDS ORDERED: SOD PHOSPHATE/SOD BIPHOSPHATE ENEMA 132 ML BTL PR STA (10:50)
--- NOTE | 2021-11-28 11:32 | Electrocardiogram Report ---
Test Reason : Blood Pressure : / mmHG Vent. Rate : 075 BPM Atrial Rate : 075 BPM P-R Int : 148 ms QRS Dur : 084 ms QT Int : 372 ms P-R-T Axes : 037 011 031 degrees QTc Int : 415 ms Poor data quality, interpretation may be adversely affected Normal sinus rhythm Minimal voltage criteria for LVH, may be normal variant Borderline ECG When compared with ECG of 05-JUL-2021 08:49, No significant change was found Confirmed by John Olivares ([id number]) on 11/28/2021 11:32:30 AM Referred By: REFERRED SELF Confirmed By:John Olivares
--- NOTE | 2021-11-28 13:57 | XRay Report ---
KUB CLINICAL HISTORY: Generalized abdominal pain. FINDINGS: 2 AP supine abdominal radiographs are compared to study dated 07/11/2021 and correlated with abdominal CT dated 11/27/2021. Cholecystitis a clips are seen in the right upper quadrant. Surgical cl ips are also present in in the lower chest and left upper quadrant. There is no high-grade bowel obst ruction. Moderate to severe fecal retention is seen throughout the colon. No evidence of intraperiton eal free air is seen on these supine images. There are no abnormal abdominal calcifications. Phleboli ths are noted in the pelvis. The bony structures appear intact. The lung bases are clear as imaged. IMPRESSION: 1. There is no radiographic evidence of high-grade bowel obstruction. 2. Moderate to severe constipation. Electronically signed by: Param Li M.D. 11/28/2021 1:56 PM
[2021-11-28] MEDS ORDERED: LACTULOSE SYRUP 30 GM/45 ML UDP PO STA (15:32)
[2021-11-28] MEDS ORDERED: GI COCKTAIL ED USE PO ONE (15:32)
[2021-11-28] MEDS ORDERED: GI Cocktail Single dose PO ONE (17:15)
--- NOTE | 2021-11-28 17:29 | Hospitalist Progress Note ---
Date of Service November 28, 2021 Assessment & Plan (1) SBO (small bowel obstruction): Plan: - SBO vs Ileus in setting of chronic constipation - likely induced due to Suboxone - CT - moderate feval retention with numerous stool-filled loops of small bowel suggestive of decreased small bowel transit; several mildly dilated loops of small bowel with scattered air-fluid levels; no discrete transition point is indentified - ileus vs partial SBO; partial nephrectomy; prior esophagectomy with gastric pull through; nonspecific urinary bladder wall thickening; prostatectomy and cholecystectomy - KUB on 11/28 shows no SBO but large stool burden - Enema x 1; Lactulose x 1 - encourage ambulation - Miralax BID; maybe schedule more Lactulose? - Continue Zosyn for now and pain regimen (2) Intractable nausea and vomiting: Plan: - IMPROVED - no vomiting but intermittent nausea - Zofran 4 mg IV every 6 hours as needed (3) Opioid abuse: Plan: - Tapering on Suboxone - currently at once a day dosing - Is interested in continuing to further taper this but expresses this has been a challenge of his - did discuss this is likely the culprit of the chronic constipation - May need to consider conversion from Linzess to Movantik? 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 Having small BMs today but still with large stool burden on KUB. This is a chronic issue for him. He is ambulating the hallways and will try Lactulose. He is having intermittent nausea and heartburn. Tolerating clears and will advance diet. Review of Systems Review of Systems: All systems reviewed & are unremarkable except as noted in Subjective Physical Exam Physical Exam: PHYSICAL EXAM General Appearance: WDWN in NAD who is A&O x 3 HEENT: Head is normocephalic/atraumatic; Hearing grossly intact; Mucous membranes moist Neck: Supple; Trachea midline; Neg JVD Heart: RRR with no M/G/R Lungs: CTA in all lung montano bilaterally; Respirations unlabored; Neg accessory muscle use Abdomen: Soft, non-tender, non-distended; Positive BS x 4 quadrants Extremities: Neg cyanosis or edema Neurological: Speech clear; Gross motor/sensory function intact; Neg focal neurologic deficits Psychiatric: Appropriate mood/affect Skin: Normal Color; Warm/Dry Results & Data Results & Data ([facility]) Vital Signs (Past 12 Hours) Vital Signs Temp Pulse Pulse Resp BP Pulse Ox 11/28/21 11:24 36.3 C L 63 16 134/81 98 11/28/21 07:23 75 PG Care Time/CCT Total # of Minutes Spent Total Time Spent with Patient: Total time spent is greater than 50% in coordination of care (as documented) at patient's floor/unit and/or counseling patient: Coding Level of Care Code 33701 Subseq Hosp Care Lvl 3 Diagnoses SBO (small bowel obstruction) K56.609 Intractable nausea and vomiting R11.2 Opioid abuse F11.10 Constipation K59.00 Murry esophagus K22.719 Murry's esophagus type: with dysplasia of unspecified degree Depression F32.9 Hypertension I10 Hypertension type: unspecified Prostate cancer C61 (1) Murry esophagus Murry's esophagus type: with dysplasia of unspecified degree Qualified Code(s): K22.719 - Murry's esophagus with dysplasia, unspecified (2) Hypertension Hypertension type: unspecified Qualified Code(s): I10 - Essential (primary) hypertension
[2021-11-28] MEDS: ALUMINUM/MAGNESIUM/SIMETH (MAALOX MAX) 30 ML UDC PO PRN (20:18)
[2021-11-28] MEDS: POLYETHYLENE (MIRALAX) 17 GM PACK PO SCH (20:19)
[2021-11-28] MEDS: KETOROLAC 30 MG/ML VIAL IV PRN (20:19)
[2021-11-28] MEDS: BUPRENORPHINE/NALOXONE 8/2 MG TAB SL SCH (20:19)
[2021-11-28] MEDS: SUCRALFATE 1 GM/10 ML UDC PO PRN (20:20)
[2021-11-28] MEDS: cloNIDine HCL 0.1 MG TAB PO PRN (22:42)
[2021-11-29] MEDS: SIMETHICONE 80 MG CHEW PO PRN ×4 (02:31→21:18)
[2021-11-29] MEDS: ALUMINUM/MAGNESIUM/SIMETH (MAALOX MAX) 30 ML UDC PO PRN ×2 (02:31→15:05)
[2021-11-29] MEDS: PIPERACILLIN/TAZOBACTAM 3.375 GM in DEXTROSE 5% 100 ML IV SCH ×2 (05:30→13:58)
[2021-11-29 08:19] LABS: Basophils # (auto) 0.03 K/uL (0-0.2); Basophils % (auto) 0.6 %; Eosinophils # (auto) 0.31 K/uL (0-0.5); Eosinophils % (auto) 6.1 %; Hematocrit (blood only) 31.5 % (42-52); Hemoglobin 9.6 g/dL (14.0-18.0); Lymphocytes # (auto) 2.06 K/uL (1.2-3.4); Lymphocytes % (auto) 40.3 %; Mean Corpuscular Hemoglobin 24.4 pg (25-34); Mean Corpuscular Hgb Conc 30.5 g/dL (32-36); Mean Corpuscular Volume 80.2 fL (80-100); Mean Platelet Volume 10.2 fL (7.4-10.4); Monocytes % (auto) 11.7 %; Neutrophils # (auto) 2.11 K/uL (1.4-6.5); Neutrophils % (auto) 41.3 %; Platelet Count 265 K/uL (130-400); RDW Coefficient of Variation 15.9 % (11.5-14.5); RDW Standard Deviation 46.4 fL (36.4-46.3); Red Blood Count 3.93 M/uL (4.7-6.1); White Blood Count 5.11 K/uL (4.8-10.8)
[2021-11-29 08:54] LABS: Albumin Globulin Ratio 1.4 (0.9-2); Albumin Level 3.6 gm/dl (3.4-5.0); Bilirubin,Total 0.3 mg/dl (0.2-1.0); Calcium 8.4 mg/dl (8.5-10.1); Creatinine Clr Calc Pharmacy 93.8 ml/min; Est GFR (African American) 110.8 ml/min; Est GFR (Non-African American) 95.6 ml/min; Globulin 2.5 gm/dl (2.5-4.0); Potassium 4.3 mmol/L (3.5-5.1); Total Protein 6.1 gm/dl (6.0-8.3)
[2021-11-29] MEDS: SUCRALFATE 1 GM/10 ML UDC PO PRN ×2 (08:57→13:59)
[2021-11-29] MEDS: CITALOPRAM 20 MG TAB PO SCH (08:59)
[2021-11-29] MEDS: POLYETHYLENE (MIRALAX) 17 GM PACK PO SCH ×2 (08:59→21:09)
[2021-11-29] MEDS: FLUTICASONE PROPIONATE NA SPR 16 GM BTL SCH (08:59)
[2021-11-29] MEDS: HEPARIN SOD 5,000 UNIT/0.5 ML VIAL SQ SCH ×2 (08:59→21:09)
[2021-11-29] MEDS: FAMOTIDINE 20 MG in SYRINGE 3 ML IV SCH ×2 (09:04→21:18)
[2021-11-29] MEDS ORDERED: ACETAMINOPHEN 325 MG TAB PO PRN (09:21)
[2021-11-29] MEDS ORDERED: ACETAMINOPHEN 325 MG TAB ONE (09:23)
[2021-11-29] MEDS: METHYLNALTREXONE BROMIDE 12 MG/0.6 ML VIAL SQ SCH (11:03)
[2021-11-29] MEDS: LACTULOSE SYRUP 30 GM/45 ML UDP PO SCH ×4 (11:03→22:34)
[2021-11-29] MEDS: KETOROLAC 30 MG/ML VIAL IV PRN ×2 (11:51→21:22)
[2021-11-29] MEDS: ONDANSETRON INJ 2 MG/ML 2 ML VIAL IV PRN (11:51)
--- NOTE | 2021-11-29 15:49 | Hospitalist Progress Note ---
Date of Service November 29, 2021 Assessment & Plan (1) SBO (small bowel obstruction): Plan: - SBO vs Ileus (favor this) in setting of chronic constipation - likely induced due to Suboxone - CT - moderate fecal retention with numerous stool-filled loops of small bowel suggestive of decreased small bowel transit; several mildly dilated loops of small bowel with scattered air-fluid levels; no discrete transition point is indentified - ileus vs partial SBO; partial nephrectomy; prior esophagectomy with gastric pull through; nonspecific urinary bladder wall thickening; prostatectomy and cholecystectomy - KUB on 11/28 shows no SBO but large stool burden - Enema x 1 - does not seem to be improving from below - Miralax BID; Lactulose and Senna; Gave Relistor x 1 - No indication to continue Abx; remove from tele (2) Intractable nausea and vomiting: Plan: - IMPROVED - no vomiting but intermittent nausea - Zofran 4 mg IV every 6 hours as needed (3) Opioid abuse: Plan: - Tapering on Suboxone - currently at once a day dosing - Is interested in continuing to further taper this but expresses this has been a challenge of his - did discuss this is likely the culprit of the chronic constipation - May need to consider conversion from Linzess to Movantik? 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 He feels that the pressure and pain that was higher in the abdomen is lower down and cramping. Trying to watch overdoing orals to prevent nausea but it seems it is more heartburn that is bother him. Continuing to try and get adequate bowel movements. Tolerating a diet but does overeat then feels full and bloating. Advised to eat smaller meals and take it slow. Still passing flatus. Review of Systems Review of Systems: All systems reviewed & are unremarkable except as noted in Subjective Physical Exam Physical Exam: PHYSICAL EXAM General Appearance: WDWN in NAD who is A&O x 3 HEENT: Head is normocephalic/atraumatic; Hearing grossly intact; Mucous membranes moist Neck: Supple; Trachea midline; Neg JVD Heart: RRR with no M/G/R Lungs: CTA in all lung montano bilaterally; Respirations unlabored; Neg accessory muscle use Abdomen: Soft, non-tender, non-distended; Positive BS x 4 quadrants Extremities: Neg cyanosis or edema Neurological: Speech clear; Gross motor/sensory function intact; Neg focal neurologic deficits Psychiatric: Appropriate mood/affect Skin: Normal Color; Warm/Dry Results & Data Results & Data ([facility]) Vital Signs (Past 12 Hours) Vital Signs Temp Pulse Resp BP Pulse Ox 11/29/21 11:38 37.0 C 90 18 137/80 95 11/29/21 07:47 36.5 C 69 18 112/73 97 11/29/21 04:08 36.6 C 71 18 142/85 H 96 PG Care Time/CCT Total # of Minutes Spent Total Time Spent with Patient: Total time spent is greater than 50% in coordination of care (as documented) at patient's floor/unit and/or counseling patient: Coding Level of Care Code 59262 Subseq Hosp Care Lvl 2 Diagnoses SBO (small bowel obstruction) K56.609 Intractable nausea and vomiting R11.2 Opioid abuse F11.10 Constipation K59.00 Murry esophagus K22.719 Murry's esophagus type: with dysplasia of unspecified degree Depression F32.9 Hypertension I10 Hypertension type: unspecified Prostate cancer C61 (1) Murry esophagus Murry's esophagus type: with dysplasia of unspecified degree Qualified Code(s): K22.719 - Murry's esophagus with dysplasia, unspecified (2) Hypertension Hypertension type: unspecified Qualified Code(s): I10 - Essential (primary) hypertension
[2021-11-29] MEDS: SENNA 8.6 MG TAB PO SCH (16:59)
[2021-11-29] MEDS ORDERED: SOD PHOSPHATE/SOD BIPHOSPHATE ENEMA 132 ML BTL PR PRN (18:10)
[2021-11-29] MEDS: BUPRENORPHINE/NALOXONE 8/2 MG TAB SL SCH (21:13)
[2021-11-30] MEDS ORDERED: SENNA 8.6 MG TAB PO STA (01:47)
[2021-11-30] MEDS: CITALOPRAM 20 MG TAB PO SCH (07:46)
[2021-11-30] MEDS: POLYETHYLENE (MIRALAX) 17 GM PACK PO SCH ×7 (07:46→22:08)
[2021-11-30] MEDS: LACTULOSE SYRUP 30 GM/45 ML UDP PO SCH ×3 (07:47→17:16)
[2021-11-30] MEDS: FLUTICASONE PROPIONATE NA SPR 16 GM BTL SCH (07:47)
[2021-11-30] MEDS: SENNA 8.6 MG TAB PO SCH ×2 (07:47→10:55)
[2021-11-30] MEDS: FAMOTIDINE 20 MG in SYRINGE 3 ML IV SCH ×2 (07:51→20:59)
[2021-11-30] MEDS: HEPARIN SOD 5,000 UNIT/0.5 ML VIAL SQ SCH ×2 (07:51→21:01)
--- NOTE | 2021-11-30 13:01 | XRay Report ---
KUB HISTORY: Generalized Abdominal Pain COMPARISON: KUB 11/28/2021. FINDINGS: The bowel gas pattern is unremarkable. There are no dilated loops of small bowel to suggest an obstruction. No renal calculi. No ureteral calculi. Calcifications in the deep pelvis likely rep resent phleboliths. These remain unchanged. Large amount well-formed stool seen throughout the colon, unchanged. There are surgical clips within the left side of the abdomen and upper abdomen. The lung bases are clear. No pneumoperitoneum or pneumatosis. IMPRESSION: 1. No renal or ureteral stones. 2. Large amount of well-formed stool seen throughout the colon, unchanged. ACT 112: Negative or not required by law. Electronically signed by: Shree Murguia M.D. 11/30/2021 1:00 PM
[2021-11-30] MEDS: METOCLOPRAMIDE HCL 10 MG TABLET PO PRN (14:14)
--- NOTE | 2021-11-30 17:33 | Hospitalist Progress Note ---
Date of Service November 30, 2021 Assessment & Plan (1) SBO (small bowel obstruction): Plan: - SBO vs Ileus (favor this) in setting of chronic constipation - likely induced due to Suboxone - CT - moderate fecal retention with numerous stool-filled loops of small bowel suggestive of decreased small bowel transit; several mildly dilated loops of small bowel with scattered air-fluid levels; no discrete transition point is indentified - ileus vs partial SBO; partial nephrectomy; prior esophagectomy with gastric pull through; nonspecific urinary bladder wall thickening; prostatectomy and cholecystectomy - KUB on 11/28 shows no SBO but large stool burden with repeat showing the same but does look like some shifting of stool - Enemas PRN; Miralax Q30M until bowel movement; Senna - Gave Relistor x 1 can repeat tomorrow - As outpatient only uses Linzess and periodically will take OTC Senna -- May benefit from Miralax 1-2 daily YANETH with possibly YANETH Senna? - No indication to continue Abx; removed from tele - Follows with [facility] - could consider sidebar with them to see other options (2) Intractable nausea and vomiting: Plan: - IMPROVED - no vomiting but intermittent nausea - Zofran 4 mg IV every 6 hours as needed (3) Opioid abuse: Plan: - Tapering on Suboxone - currently at once a day dosing - Is interested in continuing to further taper this but expresses this has been a challenge of his - did discuss this is likely the culprit of the chronic constipation - Was concerned for withdrawal so continued at this time (4) Constipation: Plan: - Likely secondary to Suboxone - Discussed with patient and - consistent bowel regimen could be difficult as patient is moving his bowels but unfortunately not adequately enough - For now treatment as above - may need additional Relistor (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 Had a small BM but KUB still with large stool burden. He feels like the discomfort is transitioning but not really having abdominal pain now. Tolerating a diet. Going to attempt Q30M Miralax to try and get better movement. Review of Systems Review of Systems: All systems reviewed & are unremarkable except as noted in Subjective Physical Exam Physical Exam: PHYSICAL EXAM General Appearance: WDWN in NAD who is A&O x 3 HEENT: Head is normocephalic/atraumatic; Hearing grossly intact; Mucous membranes moist Neck: Supple; Trachea midline; Neg JVD Heart: RRR with no M/G/R Lungs: CTA in all lung montano bilaterally; Respirations unlabored; Neg accessory muscle use Abdomen: Soft, non-tender, non-distended; Positive BS x 4 quadrants Extremities: Neg cyanosis or edema Neurological: Speech clear; Gross motor/sensory function intact; Neg focal neurologic deficits Psychiatric: Appropriate mood/affect Skin: Normal Color; Warm/Dry Results & Data Results & Data ([facility]) Vital Signs (Past 12 Hours) Vital Signs Temp Pulse Resp BP Pulse Ox 11/30/21 15:05 37 C 71 20 147/85 H 96 11/30/21 11:09 36.7 C 66 21 143/81 H 96 11/30/21 07:25 36.8 C 68 20 155/92 H 96 PG Care Time/CCT Total # of Minutes Spent Total Time Spent with Patient: Total time spent is greater than 50% in coordination of care (as documented) at patient's floor/unit and/or counseling patient: Coding Level of Care Code 05277 Subseq Hosp Care Lvl 2 Diagnoses SBO (small bowel obstruction) K56.609 Intractable nausea and vomiting R11.2 Opioid abuse F11.10 Constipation K59.00 Murry esophagus K22.719 Murry's esophagus type: with dysplasia of unspecified degree Depression F32.9 Hypertension I10 Hypertension type: unspecified Prostate cancer C61 (1) Murry esophagus Murry's esophagus type: with dysplasia of unspecified degree Qualified Code(s): K22.719 - Murry's esophagus with dysplasia, unspecified (2) Hypertension Hypertension type: unspecified Qualified Code(s): I10 - Essential (primary) hypertension
[2021-11-30] MEDS: ONDANSETRON INJ 2 MG/ML 2 ML VIAL IV PRN (18:33)
[2021-11-30] MEDS: MoRPHine SULFATE 2 MG/ML CARP IV PRN (18:33)
[2021-11-30] MEDS: cloNIDine HCL 0.1 MG TAB PO PRN (20:59)
[2021-11-30] MEDS: BUPRENORPHINE/NALOXONE 8/2 MG TAB SL SCH (20:59)
[2021-11-30] MEDS ORDERED: POLYETHYLENE (MIRALAX) 17 GM PACK PO PRN (22:00)
[2021-12-01] MEDS: SIMETHICONE 80 MG CHEW PO PRN (07:26)
[2021-12-01] MEDS: ONDANSETRON INJ 2 MG/ML 2 ML VIAL IV PRN (07:26)
[2021-12-01] MEDS: SENNA 8.6 MG TAB PO SCH (07:50)
[2021-12-01] MEDS: FLUTICASONE PROPIONATE NA SPR 16 GM BTL SCH (07:50)
[2021-12-01] MEDS: CITALOPRAM 20 MG TAB PO SCH (07:51)
[2021-12-01] MEDS: METHYLNALTREXONE BROMIDE 12 MG/0.6 ML VIAL SQ SCH (07:51)
[2021-12-01] MEDS: HEPARIN SOD 5,000 UNIT/0.5 ML VIAL SQ SCH (07:54)
[2021-12-01] MEDS: FAMOTIDINE 20 MG in SYRINGE 3 ML IV SCH (07:55)
[2021-12-01] MEDS: METOCLOPRAMIDE HCL 10 MG TABLET PO PRN (10:25)
--- NOTE | 2021-12-01 11:50 | XRay Report ---
KUB CLINICAL HISTORY: Ileus and constipation. FINDINGS: 2 AP supine abdominal radiographs are compared to study dated 11/30/2021 and correlated with abdominal CT dated 11/27/2021. There is a nonobstructed abdominal bowel gas pattern. Mild to moderate f ecal retention is seen throughout the colon. Surgical clips are noted in the upper abdomen. No eviden ce of intraperitoneal free air is seen on these supine images. There are no abnormal abdominal calcif ications. Phleboliths are seen in the pelvis. The bony structures appear intact. IMPRESSION: 1. Nonobstructed abdominal bowel gas pattern. 2. Decreased colonic fecal retention as compared to yesterday Electronically signed by: Param Li M.D. 12/01/2021 11:48 AM
--- NOTE | 2021-12-01 13:35 | Discharge Summary ---
Date of Service December 01, 2021 Admission HPI Per Admitting Provider The patient is a 56-year-old male with a past medical history including prostate cancer, tobacco abuse, depression, opioid abuse, renal mass, constipation, small bowel obstruction, Murry's esophagus and hypertension. Patient had recent admissions from 07/05-07/07/2021, and 07/11-07/13/2021 for issues with constipation, nausea and vomiting. He presently is on Suboxone for pain management, due to change from previous narcotic. It was thought that this medication was contributing to his issues with constipation, and he had been more recently started on Linzess. CT scan of abdomen and pelvis is consistent with distal small bowel obstruction. From the ED the patient received the following: Normal saline 500 mill bolus, followed by 500 mils at high 25 mL's per hour. Dilaudid 0.5 mg IV and Zofran 4 mg IV. Principal Diagnosis Constipation resulting in ileus Discharge Exam GENERAL: 56 yo well-developed, well-nourished WM. NAD. LUNGS: Clear to auscultation bilaterally. No accessory muscle use. No W/R/R. CARDIOVASCULAR: Regular rate and rhythm. No M/G/R. No JVD. ABDOMEN: Soft, NT, ND. Hypoactive BS x 4 quad. EXTREMITIES: No edema. Non-tender. Peripheral pulses +2/4. PSYCHIATRIC: Cooperative. Appropriate mood and affect. SKIN: Warm, dry, intact. No rashes or lesions. Discharge Data Allergies Allergy/AdvReac Type Severity Reaction Status Date / Time No Known Allergies Allergy Verified 11/27/21 02:34 Ordered Studies Abdomen/Pelvis CT 11/26/21 23:[address] WITH IV CONTRAST CT DOSE: 293.11 mGy.cm HISTORY: Acute generalized abdominal pain with nausea. Clinical concern for possible small bowel obstruction. Prior esophageal resection with gastric pull- through. Prior prostatectomy. eval for sbo or perf TECHNIQUE: Multiaxial CT images of the abdomen and pelvis were performed following the IV administration of 94 cc of Optiray, A dose lowering technique was utilized adhering to the principles of ALARA. COMPARISON STUDY: CT abdomen and pelvis 07/05/2021 FINDINGS: The imaged inferior cardiac chambers are unremarkable. Mild bibasilar atelectasis. The study is degraded by respiratory motion artifact. No p neumatosis or pneumoperitoneum. The spleen, mildly atrophic pancreas, adrenal glands and liver appear unremarkable. There is suggested focal fatty infiltration within the subcapsular liver on image 22 series 2 which is unchanged. Cholecystectomy. Patent portal vein. Interval partial nephrectomy of the inferior pole left kidney with resection of the previously described suspicious mass. No hydronephrosis. Mild circumferential urinary bladder wall thickening. Prostatectomy. Atherosclerosis of the aorta without aneurysm. Unremarkable IVC. No adenopathy identified. Prior esophagectomy with gastric pull-through. Wall thickening of the rectum is likely secondary to partial distention. There is moderate fecal retention. Normal appendix. There are numerous small bowel air-fluid levels with dilated small bowel loops measuring up to 3.2 cm. Numerous stool-filled loops of small bowel are also noted. No discrete transition point identified. Mild generalized body wall edema. Degenerative changes of the spine, pelvis and hips. IMPRESSION: 1. Moderate fecal retention with numerous stool-filled loops of small bowel suggestive of decreased small bowel transit. Additionally, there are several mildly dilated loops of small bowel with scattered air-fluid levels. No discrete transition point is identified. Findings are suggestive of ileus. A partial small bowel obstruction is considered less likely. 2. Interval partial nephrectomy of the inferior pole left kidney. 3. Prior esophagectomy with gastric pull-through. 4. Nonspecific urinary bladder wall thickening. Correlate with urinalysis to exclude cystitis. 5. Prostatectomy and cholecystectomy. ACT 112: Negative or not required by law. The above report was generated using voice recognition software. It may contain grammatical, syntax or spelling errors. Electronically signed by: Mustapha Madrid M.D. 11/27/2021 7:20 AM KUB X-Ray 11/28/21 08:00 KUB CLINICAL HISTORY: Generalized abdominal pain. FINDINGS: 2 AP supine abdominal radiographs are compared to study dated 07/11/2021 and correlated with abdominal CT dated 11/27/2021. Cholecystitis a clips are seen in the right upper quadrant. Surgical clips are also present in in the lower chest and left upper quadrant. There is no high-grade bowel obstruction. Moderate to severe fecal retention is seen throughout the colon. No evidence of intraperitoneal free air is seen on these supine images. There are no abnormal abdominal calcifications. Phleboliths are noted in the pelvis. The bony structures appear intact. The lung bases are clear as imaged. IMPRESSION: 1. There is no radiographic evidence of high-grade bowel obstruction. 2. Moderate to severe constipation. Electronically signed by: Param Li M.D. 11/28/2021 1:56 PM KUB X-Ray 11/30/21 00:00 KUB HISTORY: Generalized Abdominal Pain COMPARISON: KUB 11/28/2021. FINDINGS: The bowel gas pattern is unremarkable. There are no dilated loops of small bowel to suggest an obstruction. No renal calculi. No ureteral calculi. Calcifications in the deep pelvis likely represent phleboliths. These remain unchanged. Large amount well-formed stool seen throughout the colon, unchanged. There are surgical clips within the left side of the abdomen and upper abdomen. The lung bases are clear. No pneumoperitoneum or pneumatosis. IMPRESSION: 1. No renal or ureteral stones. 2. Large amount of well-formed stool seen throughout the colon, unchanged. ACT 112: Negative or not required by law. Electronically signed by: Shree Murguia M.D. 11/30/2021 1:00 PM KUB X-Ray 12/01/21 10:40 KUB CLINICAL HISTORY: Ileus and constipation. FINDINGS: 2 AP supine abdominal radiographs are compared to study dated 11/30/2021 and correlated with abdominal CT dated 11/27/2021. There is a nonobstructed abdominal bowel gas pattern. Mild to moderate fecal retention is seen throughout the colon. Surgical clips are noted in the upper abdomen. No evidence of intraperitoneal free air is seen on these supine images. There are no abnormal abdominal calcifications. Phleboliths are seen in the pelvis. The bony structures appear intact. IMPRESSION: 1. Nonobstructed abdominal bowel gas pattern. 2. Decreased colonic fecal retention as compared to yesterday Electronically signed by: Param Li M.D. 12/01/2021 11:48 AM Hospital Course (1) SBO (small bowel obstruction): - SBO vs Ileus (favor this) in setting of chronic constipation - likely induced due to Suboxone - CT - moderate fecal retention with numerous stool-filled loops of small bowel suggestive of decreased small bowel transit; several mildly dilated loops of small bowel with scattered air-fluid levels; no discrete transition point is indentified - ileus vs partial SBO; partial nephrectomy; prior esophagectomy with gastric pull through; nonspecific urinary bladder wall thickening; prostatectomy and cholecystectomy - KUB on 11/28 shows no SBO but large stool burden with repeat showing the same but does look like some shifting of stool - Enemas PRN; Miralax Q30M until bowel movement; Senna - Gave Relistor x 1 on 11/29 - As outpatient only uses Linzess and periodically will take OTC Senna - No indication to continue Abx; removed from tele on - Pt endorses multiple BMs overnight from 11/30 to this morning (12/01) - 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 Griffin would like to stop Linzess and start Movantik - If after 3 days of Movantik there is no BM, he is to take low dose Linzess - Advise f/u with GI in 2 weeks or sooner if needed. - By increasing fiber in diet, drinking plenty of water, and weaning of Suboxone, his BMs should hopefully regulate (2) Intractable nausea and vomiting: - IMPROVED - no vomiting but intermittent nausea - Zofran 4 mg IV every 6 hours as needed (3) Opioid abuse: - Tapering on Suboxone - currently at once a day dosing - Is interested in continuing to further taper this but expresses this has been a challenge of his - did discuss this is likely the culprit of the chronic constipation - Was concerned for withdrawal so continued at this time (4) Constipation: - Likely secondary to Suboxone - Discussed with patient and - consistent bowel regimen could be difficult as patient is moving his bowels but unfortunately not adequately enough - See above (5) Murry esophagus: - S/P esophagectomy with gastric pull through 11/28 esophageal CA & H/O Barretts - Famotidine 20 mg IV every 12 hours (6) Depression: - Continue citalopram; Clonidine PRN (7) Hypertension: Hold lisinopril - initially placed due to NPO but could resume but BP is stable (8) Prostate cancer: - S/P prostatectomy - No acute symptoms at this time Had multiple BMs overnight. Repeat KUB noted improved stool burden. D/w GI, recommended Movantik as outlined above. Follow up with GI and PCP as outpatient. Medically and hemodynamically stable for discharge home today. Above plan has been d/w Dr. Wright who has also seen and evaluated this patient. Total Time Total Time Spent Total Time Spent (In Minutes): >30 minutes Discharge Plan Discharge Items Patient Disposition: Home - Self-Care Reason For Visit: SBO Discharge Diagnosis: moderate constipation Activity: Resume your previous activity Non-emergency contact: Primary Care Provider and [employer] Stapler Call non-emergency contact if: you have any medication questions and your symptoms worsen Follow-up/Referrals: Rafiq Boucher III, MD [Primary Care Provider] - Diet: Regular Diet Comment: high fiber Addtl Attending Provider Instructions: You were hospitalized for abdominal pain which was felt to be related to moderate to severe constipation. After multiple medications, we were able to get your constipation resolved. Your repeat KUB done this morning 12/01/2021 noted improvement in the amount of stool in your colon. After discussion with your creamery worker, it is recommended that you discontinue Linzess. You will be started on Movantik 25 mg once daily. Needs to be taken on an empty stomach. After 3 days of using Movantik, if there is no bowel movement then you should take the lower dose of Linzess. It is recommended that you follow-up with your creamery worker within 2 weeks of discharge. Contact them sooner if you are having any other problems. We recommend that you follow-up with your family doctor within 1 week of discharge. Pending Studies at Discharge: No Stand-Alone Forms: My [facility] [employer], Smoking Cessation Medications and DC Order Prescriptions: New Movantik 25 mg tablet 25 mg PO QAM Qty: 30 RF: 1 Continued gabapentin 300 mg capsule 300 mg PO TID PRN (Reason: Pain) Qty: 90 RF: 5 citalopram 20 mg tablet 20 mg PO QAM Qty: 90 RF: 3 lisinopril 20 mg tablet 20 mg PO QAM Qty: 30 RF: 11 clonidine HCl 0.1 mg tablet 0.1 mg PO BID PRN (Reason: Anxiety) Qty: 60 RF: 1 dexlansoprazole 60 mg capsule,biphase delayed releas 60 mg PO DAILY Qty: 90 RF: 3 buprenorphine-naloxone 8-2 mg Tablet, Sublingual 1 tab SUBLINGUAL BID RF: 0 fluoride (sodium) [PreviDent 5000 Booster Plus] 1.1 % paste 1 applic dental HS RF: 0 polyethylene glycol 3350 [Miralax] 17 gram Powder In Packet 17 g PO DAILY Qty: 100 RF: 0 sucralfate 100 mg/mL suspension 1 g PO ACHS PRN (Reason: Acid Reflux) RF: 0 famotidine [Pepcid] 40 mg tablet 20 mg PO QPM RF: 0 fluticasone propionate 50 mcg/actuation spray,suspension 1 - 2 spray intranasal BID RF: 0 Discontinued Linzess 72 mcg capsule 72 mcg PO DAILY RF: 0 Discharge Orders: Discharge Order (Routine); Ordered 12/01/21 Ordered By: Beatriz Alatorre Admission Data Admit Date/Time: 11/27/21 03:35 Attending Provider: Leonel Wright Admit Provider: Santosh Stanford Primary Care Provider: Rafiq Boucher III Other Providers: Santosh Stanford Other Interventions: Discharge Summary Assessment (RN) Last Done: 12/01/21 12:40 Coding Level of Care Code D/C DAY MANAGEMENT >30 MINS Diagnoses SBO (small bowel obstruction) K56.609 Intractable nausea and vomiting R11.2 Opioid abuse F11.10 Constipation K59.00 Murry esophagus K22.719 Murry's esophagus type: with dysplasia of unspecified degree Depression F32.9 Hypertension I10 Hypertension type: unspecified Prostate cancer C61
== END 2021-12-01 13:41 | disposition home or self-care (01) | DRG 392 ==
LOC: ED 23:19 → SUATTDRO 11-27 03:35 → 2N 11-27 03:35

== ENCOUNTER 2021-12-30 07:00 | Observation (INO) ==
--- NOTE | 2021-12-30 07:10 | Emergency Department Note ---
Impression & Plan Acute pancreatitis, Nausea & vomiting, Constipation, Elevated lipase, Anemia ED Provider Note NAME: ERENDIRA OTT AGE: 56 SEX: M : 1965 ARRIVES VIA: Walk-In INFORMANT: Patient, ED PROVIDER(S): Christian Aaron MD Chief Complaint: Abdominal pain, nausea vomiting HPI: Patient presents with the above symptoms. Patient states that he developed some nausea and vomiting beginning yesterday. Patient states that he does continue to vomit but denies any blood in the vomit. The patient was feeling constipated had been started on Linzess as well as a new medication to help with constipation approximately 1 week ago but this is not allowed him to have a bowel movement in the last 3 days. The patient is passing gas. Patient states that this is similar to when he had a prior bowel obstruction which did not require surgery. Patient denies any alcohol or tobacco use. Patient denies any fevers or chills. The patient has received 1 dose of COVID vaccine as the patient is already had and did receive a dose of monoclonal's. Patient denies any dysuria or hematuria. Patient did try to take some senna to help with him to have a bowel movement this did not seem to improve his symptoms. The patient did receive some iron infusions within the last week and is pending an EGD and colonoscopy with Dr. April Askew later this month. ROS: See HPI for pertinent positives and negatives. A total of 10 systems were reviewed and otherwise negative. Past medical history: See below Surgical history: See below Social history: See below Physical Exam: GENERAL: NAD, wearing a mask, non-toxic. EYE EXAM: Normal conjunctiva. PERRL, no anisocoria and EOM's grossly intact w/o pain. NECK: Supple, no nuchal rigidity, no adenopathy, non-tender. No signs of meningismus. LUNGS: Clear to auscultation. Normal chest wall mechanics. HEART: NSR, no MRG. ABDOMEN: Abdomen soft, epigastric pain without lower abdominal pain normo-active bowel sounds, no masses, no rebound or guarding. BACK: No CVA TTP. SKIN: No rashes and no bruising. UPPER EXTREMITIES: Upper extremities are grossly normal. LOWER EXTREMITIES: Grossly normal, no edema. NEURO EXAM: A&O x3, cranial nerves II-XII grossly intact, normal speech, moves all 4 extremities on command w/o issue. Differential diagnoses: Appendicitis, testicular torsion, infections, diverticulitis, UTI, obstruction, mesenteric ischemia, aortic pathology, inflammatory bowel disease, renal colic, PUD, pancreatitis, biliary pathology, hernia, volvulus, constipation, as well as other pathologies. Course: Patient was seen and evaluated the bedside. Full history physical exam was performed. EKG interpreted by me Normal sinus rhythm, rate of 63, normal intervals, normal axis, no ST changes. No significant change from comparison EKG November 27, 2021 Imaging Studies: See Below Cardiac monitoring: An order was placed for continuous cardiac monitoring. The monitor shows a rate of 72 with sinus rhythm. MDM: Patient was seen due to concern for epigastric pain associated nausea vomiting. Blood work is obtained along with CT abdomen pelvis given the patient's prior history of bowel obstruction. Patient has a normal white count with mild anemia with a hemoglobin 11.6. The patient's kidney function is unremarkable. Mild elevation in lipase. Patient does state that he does have a prior history of pancreatitis. The patient has had intermittent improvement in the patient was treated with multiple rounds of antiemetics. Patient had tolerated 1-2 p.o. challenges but subsequently vomited prior to discharge. The patient was given a dose of Haldol after an EKG screener showed a normal QT. Patient had intractable nausea and vomiting given the patient's elevated lipase and epigastric pain do not think it unreasonable for continued management and t reatment of nausea vomiting given the patient's elevated lipase. I did speak with the on-call hospitalist Dr. Wright and the patient was admitted to the medicine service. Observation: Patient has PMX of hypertension and Murry's esophagus with no pertinent family history Observation began at 0707 and was necessary in order to rule out, monitor, reassess and mitigate the risk of the patient, ensure their relative safety, and potentially avoid an admission. Upon re-evaluation, observation re vealed that the patient could not be safely discharged at this at 1438 the patient was admitted to the medicine service as the patient failed multiple rounds of antiemetics. Patient was feeling well and discharged from observation at time. Past Med/Surg History Medical History Abdominal pain Recently admitted for abdominal pain- pain improved since discharged on 01/03/21 Abnormal weight loss 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 dx'ed with esophageal cancer in 2007 EGD in 10/2020 did show Barretts with esophagitis and ulcers - put on PPI Candidal esophagitis S/p treatment after EGD Esophageal cancer 2007 s/p chemo and radiation Fissure, anal Pt unsure if still present- getting repeat colonoscopy in the future Fracture of multiple thoracic vertebrae 25 years ago Gastro-esophageal reflux disease with esophagitis Uncontrolled Hepatitis C [id number] Hypertension Lumbago Restless leg No current issues 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 Withdrawal from opioids Was on increased opioids in the past secondary to chronic back pain- weaned off pain medications- was taking herbal supplement (Kraton)= now using Suboxone to taper off supplement Surgical History H/O radical prostatectomy History of anesthesia reaction pt states he woke up during 2 EGD procedures and during shoulder sx History of colonoscopy History of cystoscopy History of esophagectomy 2007 History of esophagogastroduodenoscopy (EGD) recent 10/31/2020 History of nephrectomy, left History of repair of rotator cuff right and left shoulder History of right knee surgery meniscectomy Hx laparoscopic cholecystectomy Status post surgery neck surgery with hardware Family History Father Hypertension Myocardial infarction Coronary heart disease Mother Cancer Skin and Lung Brother Hypertension Other No family history of adverse response to anesthesia Denies family history of Ovarian cancer Prostate cancer Breast cancer Colorectal cancer Social History Smoking Status: Never smoker Tobacco Type: Cigarettes Years Smoked: 10; Second Hand Exposure: No; Hx Alcohol Use: No Hx Substance Use: No Preferred Language: Danish Communication Ability: Effective Visual Impairment: No Limitations Hearing Ability: Normal Rn Nursery Required: No Beliefs That Will Affect Care: None marital status: Current Living Situation: Spouse current occupational status: employed 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 Feels Safe at Home: Yes Childhood Exposure to Second-Hand Smoke: Yes caffeine: Yes Dental Care, Regularly: Yes Physical Activity Frequency: Daily Seatbelt Use: always Sunscreen Use: No Assistive Devices: None Allergies Allergies Allergy/AdvReac Type Severity Reaction Status Date / Time No Known Allergies Allergy Verified 12/26/21 12:52 Home Meds Home Medications Medication Instructions Recorded Confirmed buprenorphine 8 mg-naloxone 2 mg 1 tab SUBLINGUAL BID 01/09/21 12/30/21 sublingual tablet fluoride (sodium) 1.1 % dental 1 applic DENTAL HS 04/13/21 12/30/21 paste (PreviDent 5000 Booster Plus) famotidine 40 mg tablet (Pepcid) 20 mg PO QPM 11/27/21 12/30/21 fluticasone propionate 50 1 - 2 spray INTRANASAL BID 11/27/21 12/30/21 mcg/actuation nasal spray,suspension sucralfate 100 mg/mL oral 1 g PO ACHS PRN 11/27/21 12/30/21 suspension sennosides 8.6 mg tablet (senna) 8.6 mg PO DAILY 12/03/21 12/30/21 Previous Rx's Medication Instructions Recorded polyethylene glycol 3350 17 gram 17 g PO DAILY #100 ea 07/07/21 oral powder packet (Miralax) citalopram 20 mg tablet 20 mg PO QAM #90 tab 07/12/21 dexlansoprazole 60 mg 60 mg PO DAILY #90 cap 09/19/21 capsule,biphase delayed release lisinopril 20 mg tablet 20 mg PO QAM #30 tab 10/01/21 clonidine HCl 0.1 mg tablet 0.1 mg PO BID PRN #60 tab 11/09/21 naloxegol 25 mg tablet (Movantik) 25 mg PO QAM #30 tab 12/01/21 gabapentin 300 mg capsule 300 mg PO TID PRN #90 cap 12/11/21 cholecalciferol (vitamin D3) 1,250 50,000 unit PO .COMPLEX #8 cap 12/15/21 mcg (50,000 unit) capsule blood sugar diagnostic (OneTouch #100 ea 12/19/21 Verio test strips) prochlorperazine maleate 10 mg 10 mg PO Q8H PRN 5 Days #15 tab 12/30/21 tablet (Compazine) promethazine 25 mg rectal 25 mg IN Q6H PRN #12 ea 12/30/21 suppository promethazine 25 mg tablet 25 mg PO Q6H PRN 3 Days #12 tab 12/30/21 Results & Data (ED) Vital Signs Vital Signs - 24 hr 12/30/21 07:03 12/30/21 07:27 12/30/21 08:02 Temperature Source Temporal Artery Scan Pulse Rate 77 Pulse Rate [Apical] 82 Respiratory Rate 16 18 Respiratory Effort / Characteristics Non-Labored Spontaneous Respiratory Depth Normal Respiratory Pattern Regular Blood Pressure 153/87 H Blood Pressure [Right Arm] 164/96 H Blood Pressure Mean 109 Blood Pressure Mean [Right Arm] 118 Blood Pressure Position Sitting Pulse Oximetry 100 99 100 Oxygen Delivery Method Room Air Room Air Room Air Sepsis Recent Fever Within 48 Hours No Sepsis New/Unexplained Change in Mental Status N/A Sepsis Action Taken by Nursing No Action Required 12/30/21 09:30 12/30/21 11:00 12/30/21 12:47 Temperature Source Pulse Rate Pulse Rate [Apical] 72 66 60 Respiratory Rate 18 18 16 Respiratory Effort / Characteristics Respiratory Depth Respiratory Pattern Blood Pressure Blood Pressure [Right Arm] 111/76 145/89 H 148/93 H Blood Pressure Mean Blood Pressure Mean [Right Arm] 87 107 111 Blood Pressure Position Pulse Oximetry 99 99 99 Oxygen Delivery Method Room Air Room Air Room Air Sepsis Recent Fever Within 48 Hours Sepsis New/Unexplained Change in Mental Status Sepsis Action Taken by Half-Way Medications Current Medication List: was personally reviewed by me Laboratory Data Attestation: I reviewed the patient's lab results. Result diagrams: 12/30/21 07:24 12/30/21 07:24 Lab Results 12/30/21 12/30/21 12/30/21 Range/Units 07:24 07:24 08:48 WBC 7.83 (4.8-10.8) K/uL RBC 4.67 L (4.7-6.1) M/uL Hgb 11.6 L (14.0-18.0) g/dL Hct 36.4 L (42-52) % MCV 77.9 L (80-100) fL MCH 24.8 L (25-34) pg MCHC 31.9 L (32-36) g/dL RDW Std Deviation 48.3 H (36.4-46.3) fL RDW Coeff of Dorothy 17.8 H (11.5-14.5) % Plt Count 323 (130-400) K/uL MPV 9.2 (7.4-10.4) fL Immature Gran % (Auto) 0.3 % Neut % (Auto) 63.4 % Lymph % (Auto) 24.1 % Baker % (Auto) 10.1 % Eos % (Auto) 1.5 % Baso % (Auto) 0.6 % Neut # (Auto) 4.96 (1.4-6.5) K/uL Lymph # (Auto) 1.89 (1.2-3.4) K/uL Baker # (Auto) 0.79 H (0.11-0.59) K/uL Eos # (Auto) 0.12 (0-0.5) K/uL Baso # (Auto) 0.05 (0-0.2) K/uL Immature Gran # (Auto) 0.02 (0.00-0.02) K/uL Sodium 137 (136-145) mmol/L Potassium 3.7 (3.5-5.1) mmol/L Chloride 105 (98-107) mmol/L Carbon Dioxide 25 (21-32) mmol/L Anion Gap 7 (3-11) BUN 11 (6-23) mg/dl Creatinine 0.89 (0.6-1.4) mg/dl Est Cr Clr Drug Dosing 71.5 ml/min Est GFR ( Amer) 109.2 ml/min Est GFR (Non-Af Amer) 94.3 ml/min BUN/Creatinine Ratio 12.4 (10-20) Glucose 102 H (70-99(Fasting)) mg/dl Calcium 8.9 (8.5-10.1) mg/dl Total Bilirubin 0.6 (0.2-1.0) mg/dl AST 20 (13-39) U/L ALT 22 (7-52) U/L Alkaline Phosphatase 94 (34-104) U/L Total Protein 7.4 (6.0-8.3) gm/dl Albumin 4.3 (3.4-5.0) gm/dl Globulin 3.1 (2.5-4.0) gm/dl Albumin/Globulin Ratio 1.4 (0.9-2) Lipase 210 H (11-82) U/L SARS-CoV-2, RNA, NAAT NEGATIVE (NEGATIVE) Administered Medications Discontinued Medications Diphenhydramine HCl (Diphenhydramine 50 Mg/Ml Vial) 25 mg IV NOW STA Stop: 12/30/21 08:17 Last Admin: 12/30/21 08:26 Dose: 25 mg Documented by: [id number] Haloperidol Lactate (Haloperidol Lactate 5 Mg/Ml 1 Ml Vial) 2.5 mg IV NOW STA Stop: 12/30/21 13:24 Last Admin: 12/30/21 13:31 Dose: 2.5 mg Documented by: [id number] Sodium Chloride (Nss 1000ml) 1,000 mls @ 999 mls/hr IV .Q1H1M ONE Stop: 12/30/21 08:16 Last Infusion: 12/30/21 08:26 Dose: 0 mls/hr Documented by: [id number] Admin: 12/30/21 07:40 Dose: 999 mls/hr Documented by: [id number] Prochlorperazine (Compazine) 2 mls @ 1 mls/min IV ONE ONE Stop: 12/30/21 08:17 Last Admin: 12/30/21 08:26 Dose: 1 mls/min Documented by: [id number] Sodium Chloride (Nss 1000ml) 1,000 mls @ 999 mls/hr IV .Q1H1M ONE Stop: 12/30/21 09:16 Last Infusion: 12/30/21 09:50 Dose: 0 mls/hr Documented by: [id number] Admin: 12/30/21 08:26 Dose: 999 mls/hr Documented by: [id number] Promethazine HCl (Phenergan) 25 mg in 51 mls @ 204 mls/hr IV NOW STA Stop: 12/30/21 10:47 Last Infusion: 12/30/21 11:22 Dose: 0 mls/hr Documented by: [id number] Admin: 12/30/21 10:48 Dose: 204 mls/hr Documented by: [id number] Ioversol (Optiray 320 100ml) 94 ml IV ONCE ONE Stop: 12/30/21 08:32 Last Admin: 12/30/21 08:32 Dose: 94 ml Documented by: [id number] Ondansetron HCl (Ondansetron Inj 2 Mg/Ml 2 Ml Vial) 4 mg IV NOW STA Stop: 12/30/21 07:17 Last Admin: 12/30/21 07:42 Dose: 4 mg Documented by: [id number] Imaging Data Radiologist's Impression: Abdomen/Pelvis CT 12/30/21 07:15 CT abd pelvis IV con only CLINICAL HISTORY: upper ab pain n/v; h/o danilo's with resection of the esophagus and gastric pull-through procedure. Additional history of previous SBO COMPARISON STUDY: 11/27/2021 CT DOSE: 278.66 mGy.cm TECHNIQUE: Standard CT of the Abdomen and Pelvis was performed with IV contrast. A dose lowering technique was utilized adhering to the principles of ALARA. Contrast Volume: Optiray 320, 94 ml. The patient did not receive oral contrast. FINDINGS: Lung base: The lung bases are clear. The patient is again status post esoph agectomy and gastric pull-through procedure. Abdominal cavity: There is no evidence for abdominal mass, adenopathy or ascites. Liver: There is homogeneous attenuation of the liver parenchyma. There is no evidence for enhancing mass lesion. Spleen: There is homogeneous attenuation of the splenic parenchyma. There is no enhancing mass lesion. Pancreas: There is homogeneous attenuation of the pancreatic parenchyma. There is no evidence for mass lesion or peripancreatic fluid collection. Gall Bladder: Surgical clips are present. Adrenal glands: The adrenal glands are normal in size and attenuation. There is no evidence for enhancing mass lesion. Kidneys: The patient is again status post left lower pole nephrectomy. The kidneys are otherwise homogeneous in attenuation bilaterally. There is no evidence for renal calculus or hydronephrosis. There is no evidence for enhancing mass. Bowel: The remaining bowel loops are normally placed within the abdomen and pelvis without evidence for dilatation or obstruction. There is no evidence for mass lesion. There are no inflammatory changes present. There is no evidence for free air. Bladder: The bladder is within normal limits with no evidence for focal mass, calculus or diverticulum. Mild diffuse thickening of bladder wall is again seen. : There is no evidence for pelvic mass or adenopathy. There is no evidence for pelvic ascites. The patient is again status post prostatectomy. Vasculature: There is no evidence for aneurysmal dilatation of the abdominal aorta. Mild atherosclerotic calcification is present. Osseous structures: There is no acute osseous pathology. Degenerative changes are seen within the spine. IMPRESSION: 1. No acute intra-abdominal or pelvic abnormality. 2. Previous esophagectomy and gastric pull-through procedure. 3. Status post partial left lower pole nephrectomy. 4. Additional nonacute findings are delineated above. ACT 112: Negative or not required by law. Electronically signed by: Toñito Miles M.D. 12/30/2021 9:00 AM Discharge Plan Visit Data Chief Complaint: Vomiting Stated Complaint: VOMITING ED Provider: Christian Aaron Discharge Problem: Acute pancreatitis, Nausea & vomiting, Constipation, Elevated lipase, Anemia Patient Disposition: Home - Self-Care Condition: Good Discharge Instructions Ben/Other Patient Handouts: Abdominal Pain Activity Restrictions/Additional Instructions: Please return to the emergency department if you have worsening or recurrent symptoms not amenable to at-home treatment. Please call for a follow-up appointment with her primary care physician. Please take your medications as prescribed. If you have other concerns and/or complaints please feel free to also call your primary care physician's office or return the ED for further evaluation, management, and treatment. Take your medications as prescribed. To help with your reflux, abdominal pain, or upset stomach type symptoms; please consider smaller more frequent meals. A probiotic or yogurt may also help. Please do not lay down after eating. Consider avoiding spicy, citrus, peppermint, chocolate. Consider taking a PPI like Nexium 20 mg daily or an antihistamine like Pepcid 20 mg twice daily. Sitting upright may help improve your symptoms also. Do not lay down after eating or drinking. You may also try things like Tums or Maalox. NSAIDs like ibuprofen, Motrin, Aleve, naproxen, Mobic may cause worsening upset stomach. Tylenol may be better for fever/pain. Please consider a clear liquid diet next 24-48 hours. You may advance as tolera jose. If you are not taking solid foods, please ensure your liquids have some calories for nutrition. You have been examined and treated today on an emergency basis only. This is not a substitute for, or an effort to provide, complete comprehensive medical care. It is impossible to recognize and treat all injuries or illnesses in a single emergency department visit. It is therefore important that you follow up closely with [facility], your PCP, and/or your specialist(s). Call as soon as possible for an appointment. Thank you for your time and consideration. I look forward to speaking with you again soon. Please don't hesitate to call us if you have any questions. Forms Stand Alone Forms: My [facility], Virtual Emergency Department, Important Visit Information Prescriptions Prescriptions: New promethazine 25 mg suppository 25 mg IN Q6H PRN (Reason: sedation) Qty: 12 RF: 0 prochlorperazine maleate [Compazine] 10 mg tablet 10 mg PO Q8H PRN (Reason: nausea and vomiting) 5 Days Qty: 15 RF: 0 promethazine 25 mg tablet 25 mg PO Q6H PRN (Reason: nausea and vomiting) 3 Days Qty: 12 RF: 0 No Action citalopram 20 mg tablet 20 mg PO QAM Qty: 90 RF: 3 lisinopril 20 mg tablet 20 mg PO QAM Qty: 30 RF: 11 clonidine HCl 0.1 mg tablet 0.1 mg PO BID PRN (Reason: Anxiety) Qty: 60 RF: 1 gabapentin 300 mg capsule 300 mg PO TID PRN (Reason: Pain) Qty: 90 RF: 5 cholecalciferol (vitamin D3) 1,250 mcg (50,000 unit) capsule 50,000 unit PO .COMPLEX Qty: 8 RF: 0 (DME) OneTouch Verio test strips Strip See Rx Instructions .Route Qty: 100 RF: 1 sennosides [senna] 8.6 mg tablet 8.6 mg PO DAILY RF: 0 dexlansoprazole 60 mg capsule,biphase delayed releas 60 mg PO DAILY Qty: 90 RF: 3 buprenorphine-naloxone 8-2 mg Tablet, Sublingual 1 tab SUBLINGUAL BID RF: 0 fluoride (sodium) [PreviDent 5000 Booster Plus] 1.1 % paste 1 applic dental HS RF: 0 polyethylene glycol 3350 [Miralax] 17 gram Powder In Packet 17 g PO DAILY Qty: 100 RF: 0 sucralfate 100 mg/mL suspension 1 g PO ACHS PRN (Reason: Acid Reflux) RF: 0 famotidine [Pepcid] 40 mg tablet 20 mg PO QPM RF: 0 fluticasone propionate 50 mcg/actuation spray,suspension 1 - 2 spray intranasal BID RF: 0 Movantik 25 mg tablet 25 mg PO QAM Qty: 30 RF: 1 Referrals Referrals: Sarah Rodríguez PA-C [Primary Care Provider] -
[2021-12-30] MEDS ORDERED: SODIUM CHLORIDE 0.9% 1000ML 1,000 ML IV ONE ×2 (07:16→08:16)
[2021-12-30] MEDS ORDERED: ONDANSETRON INJ 2 MG/ML 2 ML VIAL IV STA (07:16)
[2021-12-30 07:34] LABS: Basophils # (auto) 0.05 K/uL (0-0.2); Basophils % (auto) 0.6 %; Eosinophils # (auto) 0.12 K/uL (0-0.5); Eosinophils % (auto) 1.5 %; Hematocrit (blood only) 36.4 % (42-52); Hemoglobin 11.6 g/dL (14.0-18.0); Immature Granulocytes # (auto) 0.02 K/uL (0.00-0.02); Immature Granulocytes % (auto) 0.3 %; Lymphocytes # (auto) 1.89 K/uL (1.2-3.4); Lymphocytes % (auto) 24.1 %; Mean Corpuscular Hemoglobin 24.8 pg (25-34); Mean Corpuscular Hgb Conc 31.9 g/dL (32-36); Mean Corpuscular Volume 77.9 fL (80-100); Mean Platelet Volume 9.2 fL (7.4-10.4); Monocytes # (auto) 0.79 K/uL (0.11-0.59); Monocytes % (auto) 10.1 %; Neutrophils # (auto) 4.96 K/uL (1.4-6.5); Neutrophils % (auto) 63.4 %; Platelet Count 323 K/uL (130-400); RDW Coefficient of Variation 17.8 % (11.5-14.5); RDW Standard Deviation 48.3 fL (36.4-46.3); Red Blood Count 4.67 M/uL (4.7-6.1); White Blood Count 7.83 K/uL (4.8-10.8)
[2021-12-30 07:55] LABS: Albumin Globulin Ratio 1.4 (0.9-2); Albumin Level 4.3 gm/dl (3.4-5.0); BUN Creatinine Ratio 12.4 (10-20); Bilirubin,Total 0.6 mg/dl (0.2-1.0); Calcium 8.9 mg/dl (8.5-10.1); Creatinine Clr Calc Pharmacy 71.5 ml/min; Est GFR (African American) 109.2 ml/min; Est GFR (Non-African American) 94.3 ml/min; Globulin 3.1 gm/dl (2.5-4.0); Potassium 3.7 mmol/L (3.5-5.1); Total Protein 7.4 gm/dl (6.0-8.3)
[2021-12-30] MEDS ORDERED: PROCHLORPERAZINE 2 ML IV ONE (08:16)
[2021-12-30] MEDS ORDERED: diphenhydrAMINE 50 MG/ML VIAL IV STA (08:16)
[2021-12-30] MEDS ORDERED: OPTIRAY 320 100ml IV ONE (08:31)
--- NOTE | 2021-12-30 09:01 | CT Scan Report ---
CT abd pelvis IV con only CLINICAL HISTORY: upper ab pain n/v; h/o danilo's with resection of the esophagus and gastric pull-th rough procedure. Additional history of previous SBO COMPARISON STUDY: 11/27/2021 CT DOSE: 278.66 mGy.cm TECHNIQUE: Standard CT of the Abdomen and Pelvis was performed with IV contrast. A dose lowering gorge hnique was utilized adhering to the principles of ALARA. Contrast Volume: Optiray 320, 94 ml. The patient did not receive oral contrast. FINDINGS: Lung base: The lung bases are clear. The patient is again status post esophagectomy and gastric pull- through procedure. Abdominal cavity: There is no evidence for abdominal mass, adenopathy or ascites. Liver: There is homogeneous attenuation of the liver parenchyma. There is no evidence for enhancing m ass lesion. Spleen: There is homogeneous attenuation of the splenic parenchyma. There is no enhancing mass lesion . Pancreas: There is homogeneous attenuation of the pancreatic parenchyma. There is no evidence for mas s lesion or peripancreatic fluid collection. Gall Bladder: Surgical clips are present. Adrenal glands: The adrenal glands are normal in size and attenuation. There is no evidence for enhan cing mass lesion. Kidneys: The patient is again status post left lower pole nephrectomy. The kidneys are otherwise homo geneous in attenuation bilaterally. There is no evidence for renal calculus or hydronephrosis. There is no evidence for enhancing mass. Bowel: The remaining bowel loops are normally placed within the abdomen and pelvis without evidence f or dilatation or obstruction. There is no evidence for mass lesion. There are no inflammatory changes present. There is no evidence for free air. Bladder: The bladder is within normal limits with no evidence for focal mass, calculus or diverticulu m. Mild diffuse thickening of bladder wall is again seen. : There is no evidence for pelvic mass or adenopathy. There is no evidence for pelvic ascites. The patient is again status post prostatectomy. Vasculature: There is no evidence for aneurysmal dilatation of the abdominal aorta. Mild atherosclero tic calcification is present. Osseous structures: There is no acute osseous pathology. Degenerative changes are seen within the spi ne. IMPRESSION: 1. No acute intra-abdominal or pelvic abnormality. 2. Previous esophagectomy and gastric pull-through procedure. 3. Status post partial left lower pole nephrectomy. 4. Additional nonacute findings are delineated above. ACT 112: Negative or not required by law. Electronically signed by: Toñito Miles M.D. 12/30/2021 9:00 AM
[2021-12-30] MEDS ORDERED: PROMETHAZINE 25 MG/51 ML BAG IV STA (10:33)
[2021-12-30] MEDS ORDERED: HALOPERIDOL LACTATE 5 MG/ML 1 ML VIAL IV STA (13:23)
--- NOTE | 2021-12-30 15:08 | History & Physical Report ---
Date of Service December 30, 2021 Assessment & Plan (1) Nausea & vomiting: Plan: Patient once again presents with nausea vomiting has not had a bowel movement for 3 days he suffers from similar situations in the past. We will be keeping him n.p.o. except for vital medications giving him PPI and H2 erwin intravenously we will hydrate him with IV fluid and likely involve his animal biologist for further decision-making. His Movantik is not on formulary here, he will be given relistor and have his bring it in He does have occasionally associated elevated lipase we will trend his lipase to be sure that pancreatitis was not part of his symptom complex. (2) Murry esophagus: Plan: Reportedly with a esophageal resection and pull-through patient denies having any dysphagia, maintained on ppi or H2 erwin (3) Depression: Plan: For the patient's depression we will continue with small sips of water citalopram (4) Prostate cancer: Plan: Patient with history of prostate cancer (5) Renal mass: Plan: Patient with a history of renal cell carcinoma Plan: Heparin will be used for DVT prevention History of Present Illness Primary Care Provider: Sarah Rodríguez PA-C Mr Arechiga is a 56-year-old male discharged from our facility December 01. He suffers from frequent nausea vomiting and opiate related decreased bowel transit time with associated ileus and occasionally small bowel obstruction. He follows with Dr. Griffin with [facility], last admission he was changed to Movantik in hopes of improving his bowel regiment this was in addition to MiraLAX daily senna daily. 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 He is on both a PPI and an H2 erwin daily has occasional Carafate. Patient presents with constipation no bowel movements over the last 3 days abdominal pain nausea and vomiting. The patient try to increase his cathartic medications at home without improvement he is reportedly pending upper and lower endoscopy by GI later this month Allergies Allergy/AdvReac Type Severity Reaction Status Date / Time No Known Allergies Allergy Verified 12/26/21 12:52 Home Medications Medication Instructions Recorded Confirmed Type buprenorphine 8 mg-naloxone 2 mg 1 tab SUBLINGUAL BID 01/09/21 12/30/21 History sublingual tablet fluoride (sodium) 1.1 % dental 1 applic DENTAL HS 04/13/21 12/30/21 History paste (PreviDent 5000 Booster Plus) polyethylene glycol 3350 17 gram 17 g PO DAILY #100 ea 07/07/21 12/30/21 Rx oral powder packet (Miralax) citalopram 20 mg tablet 20 mg PO QAM #90 tab 07/12/21 12/30/21 Rx dexlansoprazole 60 mg 60 mg PO DAILY #90 cap 09/19/21 12/30/21 Rx capsule,biphase delayed release lisinopril 20 mg tablet 20 mg PO QAM #30 tab 10/01/21 12/30/21 Rx clonidine HCl 0.1 mg tablet 0.1 mg PO BID PRN #60 tab 11/09/21 12/30/21 Rx famotidine 40 mg tablet (Pepcid) 20 mg PO QPM 11/27/21 12/30/21 History fluticasone propionate 50 1 - 2 spray INTRANASAL BID 11/27/21 12/30/21 History mcg/actuation nasal spray,suspension sucralfate 100 mg/mL oral 1 g PO ACHS PRN 11/27/21 12/30/21 History suspension naloxegol 25 mg tablet (Movantik) 25 mg PO QAM #30 tab 12/01/21 12/30/21 Rx sennosides 8.6 mg tablet (senna) 8.6 mg PO DAILY 12/03/21 12/30/21 History gabapentin 300 mg capsule 300 mg PO TID PRN #90 cap 12/11/21 12/30/21 Rx cholecalciferol (vitamin D3) 1,250 50,000 unit PO .COMPLEX #8 cap 12/15/21 12/30/21 Rx mcg (50,000 unit) capsule blood sugar diagnostic (OneTouch #100 ea 12/19/21 12/30/21 Rx Verio test strips) prochlorperazine maleate 10 mg 10 mg PO Q8H PRN 5 Days #15 tab 12/30/21 Rx tablet (Compazine) promethazine 25 mg rectal 25 mg [place] Q6H PRN #12 ea 12/30/21 Rx suppository promethazine 25 mg tablet 25 mg PO Q6H PRN 3 Days #12 tab 12/30/21 Rx Past Med/Surg History Medical History Abdominal pain Recently admitted for abdominal pain- pain improved since discharged on 01/03/21 Abnormal weight loss 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 dx'ed with esophageal cancer in 2007 EGD in 10/2020 did show Barretts with esophagitis and ulcers - put on PPI Candidal esophagitis S/p treatment after EGD Esophageal cancer 2007 s/p chemo and radiation Fissure, anal Pt unsure if still present- getting repeat colonoscopy in the future Fracture of multiple thoracic vertebrae 25 years ago Gastro-esophageal reflux disease with esophagitis Uncontrolled Hepatitis C [id number] Hypertension Lumbago Restless leg No current issues 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 Withdrawal from opioids Was on increased opioids in the past secondary to chronic back pain- weaned off pain medications- was taking herbal supplement (Kraton)= now using Suboxone to taper off supplement Surgical History H/O radical prostatectomy History of anesthesia reaction pt states he woke up during 2 EGD procedures and during shoulder sx History of colonoscopy History of cystoscopy History of esophagectomy 2007 History of esophagogastroduodenoscopy (EGD) recent 10/31/2020 History of nephrectomy, left History of repair of rotator cuff right and left shoulder History of right knee surgery meniscectomy Hx laparoscopic cholecystectomy Status post surgery neck surgery with hardware Family History Father Hypertension Myocardial infarction Coronary heart disease Mother Cancer Skin and Lung Brother Hypertension Other No family history of adverse response to anesthesia Denies family history of Ovarian cancer Prostate cancer Breast cancer Colorectal cancer Social History Smoking Status: Former smoker Tobacco Type: Cigarettes Years Smoked: 10; Smoking End Date: quit 2 years ago; Second Hand Exposure: Yes; Do You Dip or Chew Tobacco: No; Hx Alcohol Use: No Hx Substance Use: No Preferred Language: Tamazight Communication Ability: Effective Visual Impairment: No Limitations Hearing Ability: Normal Shoe Lay Out Planner Required: No Beliefs That Will Affect Care: None marital status: Current Living Situation: Spouse current occupational status: employed 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 Other Information That Helps Us Care for You: No Feels Safe at Home: Yes Safety Concerns: Feels Safe At This Time Childhood Exposure to Second-Hand Smoke: Yes caffeine: Yes Dental Care, Regularly: Yes Physical Activity Frequency: Daily Seatbelt Use: always Sunscreen Use: No Assistive Devices: None Review of Systems Review of Systems: Mild distress and fatigue no headache, no visual changes no speech or swallowing issues no chest pain, pressure or palpitations no shortness of breath, cough or wheezes abdominal pain, nausea & vomiting, plus constipation no dysuria, hematuria or frequency no focal joint pain or swelling no back pain, CVA tenderness or radicular pain no bruising, bleeding or rashes no focal signs of weakness or numbness or altered sensation no complaints of anxiety or depression.. Physical Exam Physical Exam: The patient appeared well nourished and normally developed. Vital signs as documented. Head exam is normocephalic atraumatic Neck is without JVD, thyromegaly, or carotid bruits. Lungs are clear to auscultation, no focal loss of breath sounds Cardiac exam, Rhythm is regular.. No murmurs, rubs or gallops. Abdominal exam reveals normal bowel sounds, soft maybe some doughey fullness to the RLQ but not rebound or guarding Extremities are nonedematous and both pedal pulses are present Neurologic exam is alert and oriented, no focal loss of strength or sensation Skin is without bruises or rashes Psychologically is without concerns for anxiety or depression.. Results & Data Results & Data ([facility]) Vital Signs (Past 12 Hours) Vital Signs Pulse Pulse Resp BP BP Pulse Ox 12/30/21 14:00 63 16 127/81 97 12/30/21 12:47 60 16 148/93 H 99 12/30/21 11:00 66 18 145/89 H 99 12/30/21 09:30 72 18 111/76 99 12/30/21 08:02 82 18 164/96 H 100 12/30/21 07:27 99 12/30/21 07:03 77 16 153/87 H 100 Diagnostic Findings Abdomen/Pelvis CT 12/30/21 07:15 CT abd pelvis IV con only IMPRESSION: 1. No acute intra-abdominal or pelvic abnormality. 2. Previous esophagectomy and gastric pull-through procedure. 3. Status post partial left lower pole nephrectomy. 4. Additional nonacute findings are delineated above. Electronically signed by: Toñito Miles M.D. 12/30/2021 9:00 AM ECG Additional Comments: EKG shows normal sinus rhythm slow heart rate in the 60s no acute ST or T wave changes Code Status & VTE Plan VTE Prophylaxis Plan VTE Prophylaxis will be ordered: Yes PG Care Time/CCT Total # of Minutes Spent Total Time Spent with Patient: Total time spent is greater than 50% in coordination of care (as documented) at patient's floor/unit and/or counseling patient: Coding Level of Care Code INT OBSERVATION CARE 70M LVL 3 Diagnoses Murry esophagus K22.719 Murry's esophagus type: with dysplasia of unspecified degree Prostate cancer C61 Depression F32.9 Renal mass N28.89 Nausea & vomiting R11.2 Vomiting Intractability: intractable Vomiting type: unspecified (1) Murry esophagus Murry's esophagus type: with dysplasia of unspecified degree Qualified Code(s): K22.719 - Murry's esophagus with dysplasia, unspecified (2) Nausea & vomiting Vomiting Intractability: intractable Vomiting type: unspecified Qualified Code(s): R11.2 - Nausea with vomiting, unspecified
[2021-12-30] MEDS ORDERED: PROMETHAZINE HCL 12.5 MG in SODIUM CHLORIDE 0.9% 50 ML IV PRN (16:56)
[2021-12-30] MEDS ORDERED: MoRPHine SULFATE 2 MG/ML CARP IV PRN (16:56)
[2021-12-30] MEDS ORDERED: ONDANSETRON INJ 2 MG/ML 2 ML VIAL IV PRN (16:56)
[2021-12-30] MEDS ORDERED: ACETAMINOPHEN 1000 MG/100 ML IV IV PRN (16:56)
[2021-12-30] MEDS ORDERED: LORazepam 2 MG/1 ML VIAL IV PRN (16:56)
[2021-12-30] MEDS ORDERED: BUPRENORPHINE/NALOXONE 8/2 MG TAB SL ONE (17:25)
[2021-12-30] MEDS: LACTATED RINGER'S 1,000 ML IV SCH (17:33)
[2021-12-30] MEDS: METHYLNALTREXONE BROMIDE 12 MG/0.6 ML VIAL SQ SCH ×2 (18:04→18:13)
[2021-12-30] MEDS: BUPRENORPHINE/NALOXONE 8/2 MG TAB SL SCH (20:02)
[2021-12-30] MEDS: HEPARIN SOD 5,000 UNIT/0.5 ML VIAL SQ SCH (20:02)
[2021-12-30] MEDS: PANTOprazole 40 MG in SYRINGE 0 ML IV SCH (20:04)
[2021-12-30] MEDS: FAMOTIDINE 20 MG in SYRINGE 3 ML IV SCH (20:04)
[2021-12-30] MEDS: FLUTICASONE PROPIONATE NA SPR 16 GM BTL SCH (20:04)
[2021-12-31] MEDS: LACTATED RINGER'S 1,000 ML IV SCH (03:09)
[2021-12-31 06:56] LABS: Albumin Globulin Ratio 1.3 (0.9-2); Albumin Level 3.7 gm/dl (3.4-5.0); BUN Creatinine Ratio 10.8 (10-20); Bilirubin,Total 0.6 mg/dl (0.2-1.0); Calcium 8.5 mg/dl (8.5-10.1); Creatinine Clr Calc Pharmacy 108.2 ml/min; Est GFR (African American) 117.8 ml/min; Est GFR (Non-African American) 101.7 ml/min; Globulin 2.8 gm/dl (2.5-4.0); Potassium 3.8 mmol/L (3.5-5.1); Total Protein 6.5 gm/dl (6.0-8.3)
--- NOTE | 2021-12-31 07:03 | Electrocardiogram Report ---
Test Reason : Blood Pressure : / mmHG Vent. Rate : 063 BPM Atrial Rate : 063 BPM P-R Int : 152 ms QRS Dur : 084 ms QT Int : 388 ms P-R-T Axes : 065 017 018 degrees QTc Int : 397 ms Poor data quality, interpretation may be adversely affected Normal sinus rhythm Nonspecific ST abnormality When compared with ECG of 27-NOV-2021 23:02, No significant change was found Confirmed by Rush Carballo ([id number]) on 12/31/2021 7:03:13 AM Referred By: REFERRED SELF Confirmed By:Rush Carballo
[2021-12-31] MEDS: HEPARIN SOD 5,000 UNIT/0.5 ML VIAL SQ SCH (08:33)
[2021-12-31] MEDS: FAMOTIDINE 20 MG in SYRINGE 3 ML IV SCH (08:33)
[2021-12-31] MEDS: FLUTICASONE PROPIONATE NA SPR 16 GM BTL SCH (08:33)
[2021-12-31] MEDS: PANTOprazole 40 MG in SYRINGE 0 ML IV SCH (08:33)
[2021-12-31] MEDS: BUPRENORPHINE/NALOXONE 8/2 MG TAB SL SCH (08:34)
[2021-12-31] MEDS ORDERED: CITALOPRAM 20 MG TAB PO SCH (09:00)
[2021-12-31] MEDS ORDERED: SENNA 8.6 MG TAB PO SCH (09:00)
[2021-12-31] MEDS ORDERED: ACETAMINOPHEN 325 MG TAB PO PRN (10:28)
--- NOTE | 2021-12-31 11:02 | Gastrointestinal Consultation ---
Date of Consultation December 31, 2021 Assessment & Plan (1) Abdominal pain: (2) Nausea & vomiting: (3) Chronic constipation: 56-year-old male with history of esophageal cancer status post esophagectomy with gastric pull-up, chronic constipation, intermittent SBO, occasional nausea and vomiting when constipated, admitted with recurrent nausea vomiting, abdominal pain, no BM for several days after recent switch to Movantik from Linzess. It appears he was not using MiraLAX as an outpatient. Today, he reports feeling much better, has no further nausea vomiting, no abdominal pain. Abd is soft. - Patient can have diet as tolerated. - Would continue his daily Movantik - Can add MiraLAX to his daily regimen of his Movantik, can use 17 g in 8 ounces of liquid; can use 1-2 times per day - Follow-up next week as scheduled with GI. - Though lipase chronically mildly elevated, clinically he has no other s/s pancreatitis including on imaging - EGD and colonoscopy as scheduled later this month on 01/18 Thank you for allowing us to participate in the care of this patient. Please call with any acute changes, questions or concerns. Please see addendum below with additional recommendation from my supervising physician. Supervising Physician Co-Signing Physician Notes Late entry: Patient was seen and examined on 12/31 with Chanell Miller PA-C whose note reflects our findings and plan. History of Present Illness Reason for Consultation: recurrent n/v Requesting Physician: Dr. Wright Attending Physician: Jose Daniel Aparicio History of Present Illness This is a 56 y/o male with PMhx Murry's, esophageal cancer, (adenocarcinoma at the [facility]), s/p esophagectomy with gastric pull-up in 2009, on chronic Subuxone, chronic anemia, HTN, HLD, occasional SBO, chronic constipation, recurrent n/v, and others who presented to the ER w/ n/v, constipation. Has been working with GI as an outpatient to improve constipation, stool burden which can prompt his n/v. Saw [facility] but switched to [facility] recently. Had been on Linzess, but he states this gave him diarrhea. Recently switched to Movantik; has only had a few doses. He was unable to get this medication until just several days ago. Has been dealing with some constipation, had not moved his bowels in 3 days, was taking OTC senna; Was not using Miralax. On Friday he developed nausea vomiting multiple times + abd pain. Emesis was non bloody. On arrival to the ER he has a chronically mildly elevated lipase of unclear etiology. CTAP w/ no acute findings; no findings of acute pancreatitis. He is s/p florin. LFTs are WNL. HGB 11, BUN 8. Got a dose of Relistor. Still no BM today. However abd pain, n/v is resolved and he wants to know when he can go home. No melena, hematochezia, hematemesis, change in appetite, fever, chills, CP, SOB, leg edema, jaundice, icterus, dark urine, osman stool. He's scheduled for GI f/u on 01/07, and EGD/colonoscopy later this month. He has chronic anemia on iron. He's on Dexilant + H2RA as an OP. Denies ETOH, tobacco use. EGD 2020: - An esophago-gastric anastomosis was found. Biopsied. - Normal stomach. - Normal examined duodenum. Colonoscopy 2020: Poor prep. Hemorrhoids. Repeat 3 months EGD 2019: - Normal esophagus. - Bilious gastric fluid. Normal appearing stomach. Biopsies were obtained from the stomach. - Normal examined small intestine. Biopsied. Colonoscopy 2010: Preparation of the colon was poor. - Internal hemorrhoids. - Anal fissure. Allergies Allergy/AdvReac Type Severity Reaction Status Date / Time No Known Allergies Allergy Verified 12/26/21 12:52 Home Medications Medication Instructions Recorded Confirmed Type buprenorphine 8 mg-naloxone 2 mg 1 tab SUBLINGUAL BID 01/09/21 01/01/22 History sublingual tablet fluoride (sodium) 1.1 % dental 1 applic DENTAL HS 04/13/21 01/01/22 History paste (PreviDent 5000 Booster Plus) polyethylene glycol 3350 17 gram 17 g PO DAILY #100 ea 07/07/21 01/01/22 Rx oral powder packet (Miralax) citalopram 20 mg tablet 20 mg PO QAM #90 tab 07/12/21 01/01/22 Rx dexlansoprazole 60 mg 60 mg PO DAILY #90 cap 09/19/21 01/01/22 Rx capsule,biphase delayed release lisinopril 20 mg tablet 20 mg PO QAM #30 tab 10/01/21 01/01/22 Rx famotidine 40 mg tablet (Pepcid) 20 mg PO QPM 11/27/21 01/01/22 History fluticasone propionate 50 1 - 2 spray INTRANASAL BID 11/27/21 01/01/22 History mcg/actuation nasal spray,suspension sucralfate 100 mg/mL oral 1 g PO ACHS PRN 11/27/21 01/01/22 History suspension naloxegol 25 mg tablet (Movantik) 25 mg PO QAM #30 tab 12/01/21 01/01/22 Rx sennosides 8.6 mg tablet (senna) 8.6 mg PO DAILY 12/03/21 01/01/22 History gabapentin 300 mg capsule 300 mg PO TID PRN #90 cap 12/11/21 01/01/22 Rx cholecalciferol (vitamin D3) 1,250 50,000 unit PO .COMPLEX #8 cap 12/15/21 01/01/22 Rx mcg (50,000 unit) capsule blood sugar diagnostic (OneTouch #100 ea 12/19/21 01/01/22 Rx Verio test strips) prochlorperazine maleate 10 mg 10 mg PO Q8H PRN 5 Days #15 tab 12/30/21 01/01/22 Rx tablet (Compazine) promethazine 25 mg rectal 25 mg CO Q6H PRN #12 ea 12/30/21 01/01/22 Rx suppository clonidine HCl 0.1 mg tablet 0.1 mg PO BID PRN #60 tab 01/02/22 Rx Patient History Medical History Abdominal pain Recently admitted for abdominal pain- pain improved since discharged on 01/03/21 Abnormal weight loss 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 dx'ed with esophageal cancer in 2007 EGD in 10/2020 did show Barretts with esophagitis and ulcers - put on PPI Candidal esophagitis S/p treatment after EGD Esophageal cancer 2007 s/p chemo and radiation Fissure, anal Pt unsure if still present- getting repeat colonoscopy in the future Fracture of multiple thoracic vertebrae 25 years ago Gastro-esophageal reflux disease with esophagitis Uncontrolled Hepatitis C [id number] Hypertension Lumbago Restless leg No current issues 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 Withdrawal from opioids Was on increased opioids in the past secondary to chronic back pain- weaned off pain medications- was taking herbal supplement (Kraton)= now using Suboxone to taper off supplement Surgical History H/O radical prostatectomy History of anesthesia reaction pt states he woke up during 2 EGD procedures and during shoulder sx History of colonoscopy History of cystoscopy History of esophagectomy 2007 History of esophagogastroduodenoscopy (EGD) recent 10/31/2020 History of nephrectomy, left History of repair of rotator cuff right and left shoulder History of right knee surgery meniscectomy Hx laparoscopic cholecystectomy Status post surgery neck surgery with hardware Family History Father Hypertension Myocardial infarction Coronary heart disease Mother Cancer Skin and Lung Brother Hypertension Other No family history of adverse response to anesthesia Denies family history of Ovarian cancer Prostate cancer Breast cancer Colorectal cancer Social History Smoking Status: Former smoker Tobacco Type: Cigarettes Years Smoked: 10; Smoking End Date: quit 2 years ago; Second Hand Exposure: Yes; Do You Dip or Chew Tobacco: No; Hx Alcohol Use: No Hx Substance Use: No Preferred Language: Niuean Communication Ability: Effective Visual Impairment: No Limitations Hearing Ability: Normal Home Attendant Required: No Beliefs That Will Affect Care: None marital status: Current Living Situation: Spouse current occupational status: employed 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 Other Information That Helps Us Care for You: No Feels Safe at Home: Yes Safety Concerns: Feels Safe At This Time Childhood Exposure to Second-Hand Smoke: Yes caffeine: Yes Dental Care, Regularly: Yes Physical Activity Frequency: Daily Seatbelt Use: always Sunscreen Use: No Assistive Devices: None Review of Systems Review of Systems: All systems reviewed & are unremarkable except as noted in HPI & below Physical Exam Constitutional: WD/WN, vitals as above Eyes: PERRL, conjunctivae normal, anicteric sclerae Respiratory: normal respiratory effort, lungs clear to auscultation Cardiovascular: RRR, no murmur, no edema Gastrointestinal (Abdomen): normal bowel sounds, soft, nontender, no hepatosplenomegaly Skin: no rashes, warm and dry Psychiatric: A+Ox3, euthymic affect Results & Data ([facility]) Vital Signs (Past 12 Hours) Vital Signs Temp Pulse Resp BP Pulse Ox 12/31/21 07:46 36.6 C 74 16 148/89 H 96 Laboratory Results 12/31/21 Range/Units 06:13 Sodium 139 (136-145) mmol/L Potassium 3.8 (3.5-5.1) mmol/L Chloride 106 (98-107) mmol/L Carbon Dioxide 26 (21-32) mmol/L Anion Gap 7 (3-11) BUN 8 (6-23) mg/dl Creatinine 0.74 (0.6-1.4) mg/dl Est Cr Clr Drug Dosing 108.2 ml/min Est GFR ( Amer) 117.8 ml/min Est GFR (Non-Af Amer) 101.7 ml/min BUN/Creatinine Ratio 10.8 (10-20) Glucose 83 (70-99(Fasting)) mg/dl Calcium 8.5 (8.5-10.1) mg/dl Total Bilirubin 0.6 (0.2-1.0) mg/dl AST 15 (13-39) U/L ALT 18 (7-52) U/L Alkaline Phosphatase 84 (34-104) U/L Total Protein 6.5 (6.0-8.3) gm/dl Albumin 3.7 (3.4-5.0) gm/dl Globulin 2.8 (2.5-4.0) gm/dl Albumin/Globulin Ratio 1.3 (0.9-2) Lipase 186 H (11-82) U/L Diagnostic Findings CTAP: FINDINGS: Lung base: The lung bases are clear. The patient is again status post esophagectomy and gastric pull-through procedure. Abdominal cavity: There is no evidence for abdominal mass, adenopathy or ascites. Liver: There is homogeneous attenuation of the liver parenchyma. There is no evidence for enhancing mass lesion. Spleen: There is homogeneous attenuation of the splenic parenchyma. There is no enhancing mass lesion. Pancreas: There is homogeneous attenuation of the pancreatic parenchyma. There is no evidence for mass lesion or peripancreatic fluid collection. Gall Bladder: Surgical clips are present. Adrenal glands: The adrenal glands are normal in size and attenuation. There is no evidence for enhancing mass lesion. Kidneys: The patient is again status post left lower pole nephrectomy. The kidneys are otherwise homogeneous in attenuation bilaterally. There is no evidence for renal calculus or hydronephrosis. There is no evidence for enhancing mass. Bowel: The remaining bowel loops are normally placed within the abdomen and pelvis without evidence for dilatation or obstruction. There is no evidence for mass lesion. There are no inflammatory changes present. There is no evidence for free air. Bladder: The bladder is within normal limits with no evidence for focal mass, calculus or diverticulum. Mild diffuse thickening of bladder wall is again seen. : There is no evidence for pelvic mass or adenopathy. There is no evidence for pelvic ascites. The patient is again status post prostatectomy. Vasculature: There is no evidence for aneurysmal dilatation of the abdominal aorta. Mild atherosclerotic calcification is present. Osseous structures: There is no acute osseous pathology. Degenerative changes are seen within the spine. IMPRESSION: 1. No acute intra-abdominal or pelvic abnormality. 2. Previous esophagectomy and gastric pull-through procedure. 3. Status post partial left lower pole nephrectomy. 4. Additional nonacute findings are delineated above.
--- NOTE | 2021-12-31 12:11 | Discharge Summary ---
Date of Service December 31, 2021 Admission HPI Per Admitting Provider Sita is a 56-year-old male discharged from our facility December 01. He suffers from frequent nausea vomiting and opiate related decreased bowel transit time with associated ileus and occasionally small bowel obstruction. He follows with Dr. Griffin with [facility], last admission he was changed to Movantik in hopes of improving his bowel regiment this was in addition to MiraLAX daily senna daily. 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 He is on both a PPI and an H2 erwin daily has occasional Carafate. Patient presents with constipation no bowel movements over the last 3 days abdominal pain nausea and vomiting. The patient try to increase his cathartic medications at home without improvement he is reportedly pending upper and lower endoscopy by GI later this month Principal Diagnosis Intractable n/v--resolved Discharge Exam GENERAL: 56 yo well-developed, well-nourished WM. NAD. LUNGS: Clear to auscultation bilaterally. No accessory muscle use. No W/R/R. CARDIOVASCULAR: Regular rate and rhythm. No M/G/R. No JVD. ABDOMEN: Soft, non-tender and non-distended. No palpable masses. BS normal x 4 quad. EXTREMITIES: No edema. Non-tender. Peripheral pulses +2/4. NEUROLOGIC: A&O x3. PSYCHIATRIC: Cooperative. Appropriate mood and affect. SKIN: Warm, dry, intact. No rashes or lesions. Discharge Data Allergies Allergy/AdvReac Type Severity Reaction Status Date / Time No Known Allergies Allergy Verified 12/26/21 12:52 Consultations 12/30/21 14:52 ED Decision to Admit Stat 12/30/21 16:56 Consult Gastroenterology Routine advised f/u with them as scheduled next week, regular diet, anti-nausea meds sent to pharmacy Ordered Studies Abdomen/Pelvis CT 12/30/21 07:15 CT abd pelvis IV con only CLINICAL HISTORY: upper ab pain n/v; h/o danilo's with resection of the esophagus and gastric pull-through procedure. Additional history of previous SBO COMPARISON STUDY: 11/27/2021 CT DOSE: 278.66 mGy.cm TECHNIQUE: Standard CT of the Abdomen and Pelvis was performed with IV contrast. A dose lowering technique was utilized adhering to the principles of ALARA. Contrast Volume: Optiray 320, 94 ml. The patient did not receive oral contrast. FINDINGS: Lung base: The lung bases are clear. The patient is again status post esophagectomy and gastric pull-through procedure. Abdominal cavity: There is no evidence for abdominal mass, adenopathy or ascites. Liver: There is homogeneous attenuation of the liver parenchyma. There is no evidence for enhancing mass lesion. Spleen: There is homogeneous attenuation of the splenic parenchyma. There is no enhancing mass lesion. Pancreas: There is homogeneous attenuation of the pancreatic parenchyma. There is no evidence for mass lesion or peripancreatic fluid collection. Gall Bladder: Surgical clips are present. Adrenal glands: The adrenal glands are normal in size and attenuation. There is no evidence for enhancing mass lesion. Kidneys: The patient is again status post left lower pole nephrectomy. The kidneys are otherwise homogeneous in attenuation bilaterally. There is no evidence for renal calculus or hydronephrosis. There is no evidence for enhancing mass. Bowel: The remaining bowel loops are normally placed within the abdomen and pelvis without evidence for dilatation or obstruction. There is no evidence for mass lesion. There are no inflammatory changes present. There is no evidence for free air. Bladder: The bladder is within normal limits with no evidence for focal mass, calculus or diverticulum. Mild diffuse thickening of bladder wall is again seen. : There is no evidence for pelvic mass or adenopathy. There is no evidence for pelvic ascites. The patient is again status post prostatectomy. Vasculature: There is no evidence for aneurysmal dilatation of the abdominal aorta. Mild atherosclerotic calcification is present. Osseous structures: There is no acute osseous pathology. Degenerative changes are seen within the spine. IMPRESSION: 1. No acute intra-abdominal or pelvic abnormality. 2. Previous esophagectomy and gastric pull-through procedure. 3. Status post partial left lower pole nephrectomy. 4. Additional nonacute findings are delineated above. ACT 112: Negative or not required by law. Electronically signed by: Toñito Miles M.D. 12/30/2021 9:00 AM Hospital Course (1) Nausea & vomiting: Patient once again presents with nausea vomiting has not had a bowel movement for 3 days he suffers from similar situations in the past. We will be keeping him n.p.o. except for vital medications giving him PPI and H2 erwin intravenously we will hydrate him with IV fluid and likely involve his field technician for further decision-making. His Movantik is not on formulary here, he will be given relistor and have his bring it in He does have occasionally associated elevated lipase. Level trended but this AM was 186. This is not c/w diagnosis of acute pancreatitis and no evidence seen on imaging. At this point, his n/v has resolved. No evidence of constipation on his CT. GI has seen him this morning, recommends regular diet as tolerated and f/u as scheduled with them in the office next week. He has scheduled egd/colo for later this month. 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 He is medically and hemodynamically stable for discharge home today. Would follow up with GI as instructed. F/u with pcp as scheduled or sooner if needed. Above plan of care has been d/w Dr. Aparicio who has also seen and evaluated this patient prior to discharge and agrees with the aforementioned. Total Time Total Time Spent Total Time Spent (In Minutes): <30 minutes Discharge Plan Discharge Items Patient Disposition: Home - Self-Care Reason For Visit: INTRACTABLE NAUSEA AND VOMITING Discharge Diagnosis: Nausea and vomiting Condition on Discharge: Good Activity: Resume your previous activity Non-emergency contact: Primary Care Provider and Records Technician Call non-emergency contact if: you have any medication questions Follow-up/Referrals: Sarah Rodríguez PA-C [Primary Care Provider] - Diet: Regular Addtl Attending Provider Instructions: Assist discharge you hospitalized due to nausea and vomiting. Uncertain as to what may have been causing this. There is no evidence of constipation or obstruction on imaging. Even seen by her gastroenterology group, they have advised follow-up next week as scheduled. You are scheduled for an EGD and colonoscopy later this month. Compazine and Phenergan have been called to your pharmacy to utilize as needed for nausea. There have been no other medication changes or additions. Continue your Movantik as prescribed. You can resume a normal diet as tolerated. Recommend follow-up with your primary care physician within 1 week of discharge. Pending Studies at Discharge: No Stand-Alone Forms: My [facility], Smoking Cessation Medications and DC Order Prescriptions: New promethazine 25 mg suppository 25 mg IA Q6H PRN (Reason: sedation) Qty: 12 RF: 0 prochlorperazine maleate [Compazine] 10 mg tablet 10 mg PO Q8H PRN (Reason: nausea and vomiting) 5 Days Qty: 15 RF: 0 promethazine 25 mg tablet 25 mg PO Q6H PRN (Reason: nausea and vomiting) 3 Days Qty: 12 RF: 0 Continued citalopram 20 mg tablet 20 mg PO QAM Qty: 90 RF: 3 lisinopril 20 mg tablet 20 mg PO QAM Qty: 30 RF: 11 clonidine HCl 0.1 mg tablet 0.1 mg PO BID PRN (Reason: Anxiety) Qty: 60 RF: 1 gabapentin 300 mg capsule 300 mg PO TID PRN (Reason: Pain) Qty: 90 RF: 5 cholecalciferol (vitamin D3) 1,250 mcg (50,000 unit) capsule 50,000 unit PO .COMPLEX Qty: 8 RF: 0 (DME) OneTouch Verio test strips Strip See Rx Instructions .Route Qty: 100 RF: 1 sennosides [senna] 8.6 mg tablet 8.6 mg PO DAILY RF: 0 dexlansoprazole 60 mg capsule,biphase delayed releas 60 mg PO DAILY Qty: 90 RF: 3 buprenorphine-naloxone 8-2 mg Tablet, Sublingual 1 tab SUBLINGUAL BID RF: 0 fluoride (sodium) [PreviDent 5000 Booster Plus] 1.1 % paste 1 applic dental HS RF: 0 polyethylene glycol 3350 [Miralax] 17 gram Powder In Packet 17 g PO DAILY Qty: 100 RF: 0 sucralfate 100 mg/mL suspension 1 g PO ACHS PRN (Reason: Acid Reflux) RF: 0 famotidine [Pepcid] 40 mg tablet 20 mg PO QPM RF: 0 fluticasone propionate 50 mcg/actuation spray,suspension 1 - 2 spray intranasal BID RF: 0 Movantik 25 mg tablet 25 mg PO QAM Qty: 30 RF: 1 Discharge Orders: Discharge Order (Routine); Ordered 12/31/21 Ordered By: Beatriz Alatorre Admission Data Admit Date/Time: 12/30/21 14:56 Attending Provider: Jose Daniel Aparicio Admit Provider: Leonel Wright Primary Care Provider: Sarah Rodríguez Other Providers: Leonel Wright ; Elizabeth Griffin Coding Level of Care Code 75624 OBS Care - Discharge Diagnoses Nausea & vomiting R11.2 Vomiting Intractability: intractable Vomiting type: unspecified Murry esophagus K22.719 Murry's esophagus type: with dysplasia of unspecified degree Depression F32.9 Prostate cancer C61 Renal mass N28.89
== END 2021-12-31 13:39 | disposition home or self-care (01) ==
LOC: 3W 07:00 → ED 07:00 → SUATTDRO 14:56 → 3W 16:47
DX: K22.70 Barrett's esophagus without dysplasia; F32.A Depression, unspecified; C61 Malignant neoplasm of prostate; N28.89 Other specified disorders of kidney and ureter; Z87.891 Personal history of nicotine dependence; R11.2 Nausea with vomiting, unspecified

== ENCOUNTER 2022-03-05 10:33 | Inpatient (IN) ==
--- NOTE | 2022-03-05 10:40 | Emergency Department Note ---
Impression & Plan Intractable nausea and vomiting, Acute dehydration ED Provider Note NAME: ERENDIRA OTT AGE: 56 SEX: M : 1965 ARRIVES VIA: Walk-In INFORMANT: Patient, ED PROVIDER(S): Christian Aaron MD Chief Complaint: Abdominal pain, nausea vomiting HPI: Patient presents with the above symptoms. The patient states that he started having some upset stomach 2 to 3 days prior. Patient states that today this was worse in the prior 2 days and has vomited approximate 20 times nonbloody. Patient denies any alcohol or tobacco use. The patient denies any fevers or chills. The patient did attempt to try to take nausea medication but every time he would do so he would throw up. Patient does have a prior history of a partial left nephrectomy and esophageal cancer. The patient denies any trauma. The patient has had his gallbladder out. Patient states that the majority of his discomfort is in the upper abdomen. It is nonradiating. No chest pain or shortness of breath. The patient has had associated nausea and vomiting. Patient states he had a recent bowel movement denies any blood in urine or stool. Patient states that he has had a recent bowel movement. ROS: See HPI for pertinent positives and negatives. A total of 10 systems were reviewed and otherwise negative. Past medical history: See below Surgical history: See below Social history: See below Physical Exam: GENERAL: Uncomfortable in appearance. EYE EXAM: Normal conjunctiva. PERRL, no anisocoria and EOM's grossly intact w/o pain. OROPHARYNX: Moist mucus membranes. Grossly normal dentition. NECK: Supple, no nuchal rigidity, no adenopathy, non-tender. No signs of meningismus. LUNGS: Clear to auscultation. Normal chest wall mechanics. HEART: NSR, no MRG. ABDOMEN: Abdomen soft, epigastric pain with moderate diffuse discomfort, nega tive obturators and psoas, normo-active bowel sounds, no masses, no rebound or guarding. BACK: No CVA TTP. SKIN: No rashes and no bruising. UPPER EXTREMITIES: Upper extremities are grossly normal. LOWER EXTREMITIES: Grossly normal, no edema. NEURO EXAM: A&O x3, cranial nerves II-XII grossly intact, normal speech, moves all 4 extremities on command w/o issue. Differential diagnoses: Appendicitis, testicular torsion, infections, diverticulitis, UTI, obstruction, mesenteric ischemia, aortic pathology, inflammatory bowel disease, renal colic, PUD, pancreatitis, biliary pathology, hernia, volvulus, constipation, as well as other pathologies. Course: Patient was seen and evaluated the bedside. Full history physical exam was performed. Imaging Studies: See Below Cardiac monitoring: An order was placed for continuous cardiac monitoring. The monitor shows a rate of 77 with sinus rhythm. MDM: Patient was seen for nausea vomiting. Blood work was obtained. Patient blood work shows a normal white count with mild anemia hemoglobin 13.8 normal platelet count. Kidney function is unremarkable. Lipase is borderline elevated at 205. CT does not show any acute or infectious findings. The patient did receive multiple rounds of antiemetics and IV fluids. The patient still had persistent nausea and vomiting. After further discussion with the patient the patient does not believe he is able to maintain adequate hydration liquids at home. I did speak with the on-call hospitalist Dr. Wright and the patient was admitted to the medicine service. Start Time: 1040 Reason: Patient with PMHx of HTN and Fam Hx of HTN underwent ED Observation for nausea, vomiting, and abdominal pain. Fam Hx: HTN SocHx: See Below Summary: Patient was seen for abdominal pain nausea vomiting. Blood work is obtained. The patient did have borderline elevation in lipase. Patient did receive 4 rounds of antiemetics as well as pain medication and IV fluids. Patient CT does not show any acute infectious or inflammatory findings. As the patient was identified tolerate by mouth the patient was no longer in observation and admitted to the medicine service after more than 6 hours of trial with IV fluids IV medication with intractable nausea and vomiting. Disposition: 03/05/22 @ 1715 Total Time: 6H 35 MIN Past Med/Surg History Medical History Abdominal pain Recently admitted for abdominal pain- pain improved since discharged on 01/03/21 Abnormal weight loss 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 dx'ed with esophageal cancer in 2007 EGD in 10/2020 did show Barretts with esophagitis and ulcers - put on PPI Candidal esophagitis S/p treatment after EGD Esophageal cancer 2007 s/p chemo and radiation Fissure, anal Pt unsure if still present- getting repeat colonoscopy in the future Fracture of multiple thoracic vertebrae 25 years ago Gastro-esophageal reflux disease with esophagitis Uncontrolled Hepatitis C [id number] Hypertension Lumbago Restless leg No current issues 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 Withdrawal from opioids Was on increased opioids in the past secondary to chronic back pain- weaned off pain medications- was taking herbal supplement ([place])= now using Suboxone to taper off supplement Surgical History H/O radical prostatectomy History of anesthesia reaction pt states he woke up during 2 EGD procedures and during shoulder sx History of colonoscopy History of cystoscopy History of esophagectomy 2007 History of esophagogastroduodenoscopy (EGD) recent 10/31/2020 History of nephrectomy, left History of repair of rotator cuff right and left shoulder History of right knee surgery meniscectomy Hx laparoscopic cholecystectomy Status post surgery neck surgery with hardware Family History Father Hypertension Myocardial infarction Coronary heart disease Mother Cancer Skin and Lung Brother Hypertension Other No family history of adverse response to anesthesia Denies family history of Ovarian cancer Prostate cancer Breast cancer Colorectal cancer Social History Smoking Status: Never smoker Tobacco Type: Cigarettes Years Smoked: 10; Second Hand Exposure: Yes; Hx Alcohol Use: No Hx Substance Use: No Preferred Language: Nigerien Communication Ability: Effective Visual Impairment: No Limitations Hearing Ability: Normal 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 Required: No Beliefs That Will Affect Care: None marital status: Current Living Situation: Spouse current occupational status: employed 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 Feels Safe at Home: Yes Childhood Exposure to Second-Hand Smoke: Yes caffeine: Yes Dental Care, Regularly: Yes Physical Activity Frequency: Daily Seatbelt Use: always Sunscreen Use: No Assistive Devices: None Allergies Allergies Allergy/AdvReac Type Severity Reaction Status Date / Time No Known Allergies Allergy Verified 12/26/21 12:52 Home Meds Home Medications Medication Instructions Recorded Confirmed buprenorphine 8 mg-naloxone 2 mg 1 tab SUBLINGUAL BID 01/09/21 03/05/22 sublingual tablet fluoride (sodium) 1.1 % dental 1 applic DENTAL HS 04/13/21 03/05/22 paste (PreviDent 5000 Booster Plus) famotidine 40 mg tablet (Pepcid) 20 mg PO QPM 11/27/21 03/05/22 sucralfate 100 mg/mL oral 1 g PO ACHS PRN 11/27/21 03/05/22 suspension sennosides 8.6 mg tablet (senna) 8.6 mg PO DAILY 12/03/21 03/05/22 Previous Rx's Medication Instructions Recorded polyethylene glycol 3350 17 gram 17 g PO DAILY #100 ea 07/07/21 oral powder packet (Miralax) citalopram 20 mg tablet 20 mg PO QAM #90 tab 07/12/21 dexlansoprazole 60 mg 60 mg PO DAILY #90 cap 09/19/21 capsule,biphase delayed release lisinopril 20 mg tablet 20 mg PO QAM #30 tab 10/01/21 naloxegol 25 mg tablet (Movantik) 25 mg PO QAM #30 tab 12/01/21 gabapentin 300 mg capsule 300 mg PO TID PRN #90 cap 12/11/21 promethazine 25 mg rectal 25 mg MN Q6H PRN #12 ea 12/30/21 suppository fluticasone propionate 50 1 - 2 spray INTRANASAL BID #16 g 01/14/22 mcg/actuation nasal spray,suspension clonidine HCl 0.1 mg tablet 0.1 mg PO BID PRN #60 tab 01/28/22 cholecalciferol (vitamin D3) 1,250 50,000 unit PO .COMPLEX #8 cap 02/28/22 mcg (50,000 unit) capsule varenicline 0.5 mg tablet 0.5 mg PO .COMPLEX #11 tab 02/28/22 varenicline 1 mg tablet 1 mg PO BID #42 tab 02/28/22 Results & Data (ED) Vital Signs Vital Signs - 24 hr 03/05/22 10:35 03/05/22 10:50 03/05/22 12:34 Temperature 36.4 C L Temperature Source Oral Pulse Rate 73 71 Pulse Rate [Apical] 71 73 Pulse Rhythm Regular Respiratory Rate 20 20 21 Respiratory Effort / Characteristics Non-Labored Spontaneous Respiratory Depth Normal Normal Blood Pressure 152/86 H Blood Pressure [Right Arm] 150/86 H 148/81 H Blood Pressure Mean 108 Blood Pressure Mean [Right Arm] 107 103 Blood Pressure Position Sitting Pulse Oximetry 100 100 97 Oxygen Delivery Method Room Air Room Air Room Air Sepsis Recent Fever Within 48 Hours No Sepsis New/Unexplained Change in Mental Status No Sepsis Action Taken by Nursing No Action Required 03/05/22 14:00 03/05/22 16:00 Temperature Temperature Source Pulse Rate Pulse Rate [Apical] 76 84 Pulse Rhythm Respiratory Rate 21 21 Respiratory Effort / Characteristics Non-Labored Respiratory Depth Normal Blood Pressure Blood Pressure [Right Arm] 141/81 H 141/82 H Blood Pressure Mean Blood Pressure Mean [Right Arm] 101 101 Blood Pressure Position Pulse Oximetry 98 98 Oxygen Delivery Method Room Air Room Air Sepsis Recent Fever Within 48 Hours Sepsis New/Unexplained Change in Mental Status Sepsis Action Taken by Group Home Medications Current Medication List: was personally reviewed by me Laboratory Data Attestation: I reviewed the patient's lab results. Result diagrams: 03/05/22 11:13 03/05/22 11:13 Lab Results 03/05/22 03/05/22 03/05/22 Range/Units 11:13 11:13 14:32 WBC 8.74 (4.8-10.8) K/uL RBC 5.00 (4.7-6.1) M/uL Hgb 13.8 L (14.0-18.0) g/dL Hct 41.9 L (42-52) % MCV 83.8 (80-100) fL MCH 27.6 (25-34) pg MCHC 32.9 (32-36) g/dL RDW Std Deviation 57.0 H (36.4-46.3) fL RDW Coeff of Dorothy 18.6 H (11.5-14.5) % Plt Count 299 (130-400) K/uL MPV 11.0 H (7.4-10.4) fL Immature Gran % (Auto) 0.3 % Neut % (Auto) 83.5 % Lymph % (Auto) 11.3 % [place] % (Auto) 4.5 % Eos % (Auto) 0.1 % Baso % (Auto) 0.3 % Neut # (Auto) 7.29 H (1.4-6.5) K/uL Lymph # (Auto) 0.99 L (1.2-3.4) K/uL [place] # (Auto) 0.39 (0.11-0.59) K/uL Eos # (Auto) 0.01 (0-0.5) K/uL Baso # (Auto) 0.03 (0-0.2) K/uL Immature Gran # (Auto) 0.03 H (0.00-0.02) K/uL Sodium 141 (136-145) mmol/L Potassium 4.2 (3.5-5.1) mmol/L Chloride 106 (98-107) mmol/L Carbon Dioxide 23 (21-32) mmol/L Anion Gap 12 H (3-11) BUN 13 (6-23) mg/dl Creatinine 0.88 (0.6-1.4) mg/dl Est Cr Clr Drug Dosing 90.1 ml/min Est GFR ( Amer) 109.7 ml/min Est GFR (Non-Af Amer) 94.7 ml/min BUN/Creatinine Ratio 14.8 (10-20) Glucose 129 H (70-99(Fasting)) mg/dl Calcium 9.8 (8.5-10.1) mg/dl Total Bilirubin 0.5 (0.2-1.0) mg/dl AST 26 (13-39) U/L ALT 25 (7-52) U/L Alkaline Phosphatase 98 (34-104) U/L Total Protein 7.6 (6.0-8.3) gm/dl Albumin 4.5 (3.4-5.0) gm/dl Globulin 3.1 (2.5-4.0) gm/dl Albumin/Globulin Ratio 1.5 (0.9-2) Lipase 205 H (11-82) U/L Urine Color Yellow Urine Appearance Clear (Clear) Urine pH 7.0 (4.5-7.5) Ur Specific [place] > 1.045 H (1.000-1.030) Urine Protein Negative (Negative) Urine Glucose (UA) Negative (Negative) Urine Ketones 1+ H (Negative) Urine Blood Negative (Negative) Urine Nitrite Negative (Negative) Urine Bilirubin Negative (Negative) Urine Urobilinogen Negative (Negative) Ur Leukocyte Esterase Negative (Negative) Administered Medications Discontinued Medications Diphenhydramine HCl (Diphenhydramine 50 Mg/Ml Vial) 25 mg IV NOW STA Stop: 03/05/22 15:27 Last Admin: 03/05/22 15:29 Dose: 25 mg Documented by: [id number] Sodium Chloride (Nss 1000ml) 1,000 mls @ 999 mls/hr IV .Q1H1M STA Stop: 03/05/22 11:49 Last Infusion: 03/05/22 13:49 Dose: 0 mls/hr Documented by: [id number] Admin: 03/05/22 11:18 Dose: 999 mls/hr Documented by: [id number] Prochlorperazine (Compazine) 2 mls @ 1 mls/min IV ONE ONE Stop: 03/05/22 15:27 Last Admin: 03/05/22 15:29 Dose: 1 mls/min Documented by: [id number] Sodium Chloride (Nss 1000ml) 500 mls @ 999 mls/hr IV .Q31M ONE Stop: 03/05/22 15:57 Last Infusion: 03/05/22 16:52 Dose: 0 mls/hr Documented by: [id number] Admin: 03/05/22 15:29 Dose: 999 mls/hr Documented by: [id number] Promethazine HCl (Phenergan) 25 mg in 51 mls @ 204 mls/hr IV NOW STA Stop: 03/05/22 16:27 Last Infusion: 03/05/22 16:51 Dose: 0 mls/hr Documented by: [id number] Admin: 03/05/22 16:33 Dose: 204 mls/hr Documented by: [id number] Pantoprazole Sodium 40 mg/ (Syringe) 10 mls @ 5 mls/min IV NOW ONE Stop: 03/05/22 16:17 Last Admin: 03/05/22 16:51 Dose: 5 mls/min Documented by: [id number] Ioversol (Optiray 320 100ml) 94 ml IV ONCE ONE Stop: 03/05/22 13:05 Last Admin: 03/05/22 13:04 Dose: 94 ml Documented by: [id number] Morphine Sulfate (Morphine Sulfate 4 Mg/Ml 1 Ml Carp\Vial) 4 mg IV NOW STA Stop: 03/05/22 10:50 Last Admin: 03/05/22 11:18 Dose: 4 mg Documented by: [id number] Morphine Sulfate (Morphine Sulfate 4 Mg/Ml 1 Ml Carp\Vial) 4 mg IV NOW STA Stop: 03/05/22 14:18 Last Admin: 03/05/22 14:29 Dose: 4 mg Documented by: [id number] Ondansetron HCl (Ondansetron Inj 2 Mg/Ml 2 Ml Vial) 4 mg IV NOW STA Stop: 03/05/22 10:50 Last Admin: 03/05/22 11:18 Dose: 4 mg Documented by: [id number] Ondansetron HCl (Ondansetron Inj 2 Mg/Ml 2 Ml Vial) 4 mg IV NOW STA Stop: 03/05/22 14:18 Last Admin: 03/05/22 14:29 Dose: 4 mg Documented by: [id number] Imaging Data Radiologist's Impression: Abdomen/Pelvis CT 03/05/22 10:49 CT SCAN OF THE ABDOMEN AND PELVIS WITH IV CONTRAST CLINICAL HISTORY: Upper abdominal pain. Nausea and vomiting. COMPARISON STUDY: Abdominal CT dated 12/30/2021. TECHNIQUE: Following the IV administration of 94 cc of Optiray 320, CT scan of the abdomen and pelvis is performed from the lung bases to the proximal femora. Images are reviewed in the axial, sagittal, and coronal planes. IV contrast was administered without complication. A dose lowering technique was utilized adhering to the principles of ALARA. CT DOSE: 358.28 mGycm FINDINGS: Lung bases: The heart is normal in size and without pericardial effusion. The lung bases are clear. Liver: The contrast-enhanced liver is normal in size, contour, and attenuation. Fatty infiltration is seen adjacent to the gallbladder fossa There is mild central intrahepatic biliary ductal dilatation. The hepatic veins and portal veins are patent. Gallbladder: Surgically absent noting clips in the gallbladder fossa. Spleen: Normal in size and attenuation. Pancreas: Moderately atrophic and grossly unremarkable. Adrenal glands: Nonspecific thickening of the adrenal glands is similar to previous. Kidneys: The contrast enhanced kidneys are normal in size and without hydr onephrosis. The kidneys enhance symmetrically. Partial nephrectomy change is noted in the left lower pole. Abdominal vasculature: The abdominal aorta is normal in course and caliber noting moderate atherosclerotic calcification. Stomach and bowel: There is a moderate hiatal hernia with evidence of previous gastric pull-through procedure. No bowel obstruction is identified. The appendix is well-visualized and normal. Peritoneum: There is no intraperitoneal free air or abdominal ascites. There is a small fat-containing umbilical hernia. Lymphadenopathy: None. Pelvic viscera: The prostate gland is surgically absent. The bladder is mildly distended. The wall appears thickened and trabeculated indicating chronic outlet obstruction.. Skeletal structures: The skeletal structures are osteopenic. No lytic or blastic lesions are seen. IMPRESSION: 1. No acute infectious or inflammatory findings are identified in the abdomen or pelvis. 2. There is postoperative change from previous gastric pull-through procedure, left partial nephrectomy, cholecystectomy, and prostatectomy. 3. There is no evidence of metastatic disease in the abdomen or pelvis. 4. No bowel obstruction. 5. Additional findings as above. ACT 112: Negative or not required by law. Electronically signed by: Param Li M.D. 03/05/2022 3:13 PM Discharge Plan Visit Data Chief Complaint: Nausea Stated Complaint: FEELING NAUSEATED & ABD PAIN ED Provider: Christian Aaron Discharge Problem: Intractable nausea and vomiting, Acute dehydration Patient Disposition: Admitted As Inpatient Forms [facility] Prescriptions Prescriptions: No Action citalopram 20 mg tablet 20 mg PO QAM Qty: 90 RF: 3 lisinopril 20 mg tablet 20 mg PO QAM Qty: 30 RF: 11 gabapentin 300 mg capsule 300 mg PO TID PRN (Reason: Pain) Qty: 90 RF: 5 fluticasone propionate 50 mcg/actuation spray,suspension 1 - 2 spray intranasal BID Qty: 16 RF: 5 clonidine HCl 0.1 mg tablet 0.1 mg PO BID PRN (Reason: Anxiety) Qty: 60 RF: 1 varenicline 0.5 mg tablet 0.5 mg PO .COMPLEX Qty: 11 RF: 0 varenicline 1 mg tablet 1 mg PO BID Qty: 42 RF: 0 cholecalciferol (vitamin D3) 1,250 mcg (50,000 unit) capsule 50,000 unit PO .COMPLEX Qty: 8 RF: 0 sennosides [senna] 8.6 mg tablet 8.6 mg PO DAILY RF: 0 dexlansoprazole 60 mg capsule,biphase delayed releas 60 mg PO DAILY Qty: 90 RF: 3 buprenorphine-naloxone 8-2 mg Tablet, Sublingual 1 tab SUBLINGUAL BID RF: 0 promethazine 25 mg suppository 25 mg MN Q6H PRN (Reason: sedation) Qty: 12 RF: 0 fluoride (sodium) [PreviDent 5000 Booster Plus] 1.1 % paste 1 applic dental HS RF: 0 polyethylene glycol 3350 [Miralax] 17 gram Powder In Packet 17 g PO DAILY Qty: 100 RF: 0 sucralfate 100 mg/mL suspension 1 g PO ACHS PRN (Reason: Acid Reflux) RF: 0 famotidine [Pepcid] 40 mg tablet 20 mg PO QPM RF: 0 Movantik 25 mg tablet 25 mg PO QAM Qty: 30 RF: 1 Referrals Referrals: Sarah Rodríguez PA-C [Primary Care Provider] -
[2022-03-05] MEDS ORDERED: ONDANSETRON INJ 2 MG/ML 2 ML VIAL IV STA ×2 (10:49→14:17)
[2022-03-05] MEDS ORDERED: MoRPHine SULFATE 4 MG/ML 1 ML CARP\\VIAL IV STA ×2 (10:49→14:17)
[2022-03-05] MEDS ORDERED: SODIUM CHLORIDE 0.9% 1000ML 1,000 ML IV STA (10:49)
[2022-03-05 11:44] LABS: Basophils # (auto) 0.03 K/uL (0-0.2); Basophils % (auto) 0.3 %; Eosinophils # (auto) 0.01 K/uL (0-0.5); Eosinophils % (auto) 0.1 %; Hematocrit (blood only) 41.9 % (42-52); Hemoglobin 13.8 g/dL (14.0-18.0); Immature Granulocytes # (auto) 0.03 K/uL (0.00-0.02); Immature Granulocytes % (auto) 0.3 %; Lymphocytes # (auto) 0.99 K/uL (1.2-3.4); Lymphocytes % (auto) 11.3 %; Mean Corpuscular Hemoglobin 27.6 pg (25-34); Mean Corpuscular Hgb Conc 32.9 g/dL (32-36); Mean Corpuscular Volume 83.8 fL (80-100); Monocytes # (auto) 0.39 K/uL (0.11-0.59); Monocytes % (auto) 4.5 %; Neutrophils # (auto) 7.29 K/uL (1.4-6.5); Neutrophils % (auto) 83.5 %; Platelet Count 299 K/uL (130-400); RDW Coefficient of Variation 18.6 % (11.5-14.5); White Blood Count 8.74 K/uL (4.8-10.8)
[2022-03-05 12:10] LABS: Albumin Globulin Ratio 1.5 (0.9-2); Albumin Level 4.5 gm/dl (3.4-5.0); BUN Creatinine Ratio 14.8 (10-20); Bilirubin,Total 0.5 mg/dl (0.2-1.0); Calcium 9.8 mg/dl (8.5-10.1); Creatinine Clr Calc Pharmacy 90.1 ml/min; Est GFR (African American) 109.7 ml/min; Est GFR (Non-African American) 94.7 ml/min; Globulin 3.1 gm/dl (2.5-4.0); Potassium 4.2 mmol/L (3.5-5.1); Total Protein 7.6 gm/dl (6.0-8.3)
[2022-03-05] MEDS ORDERED: OPTIRAY 320 100ml IV ONE (13:04)
[2022-03-05 14:53] LABS: Appearance Urine Clear (Clear); Bilirubin Urine Negative (Negative); Blood Urine Negative (Negative); Color Urine Yellow; Glucose Urine UA Negative (Negative); Ketones Urine 1+ (Negative); Leukocyte Esterase Urine Negative (Negative); Nitrite Urine Negative (Negative); Protein Urine Negative (Negative); Specific Gravity Urine > 1.045 (1.000-1.030); Urobilinogen Urine Negative (Negative)
--- NOTE | 2022-03-05 15:14 | CT Scan Report ---
CT SCAN OF THE ABDOMEN AND PELVIS WITH IV CONTRAST CLINICAL HISTORY: Upper abdominal pain. Nausea and vomiting. COMPARISON STUDY: Abdominal CT dated 12/30/2021. TECHNIQUE: Following the IV administration of 94 cc of Optiray 320, CT scan of the abdomen and pelvi s is performed from the lung bases to the proximal femora. Images are reviewed in the axial, sagittal , and coronal planes. IV contrast was administered without complication. A dose lowering technique wa s utilized adhering to the principles of ALARA. CT DOSE: 358.28 mGycm FINDINGS: Lung bases: The heart is normal in size and without pericardial effusion. The lung bases are clear. Liver: The contrast-enhanced liver is normal in size, contour, and attenuation. Fatty infiltration is seen adjacent to the gallbladder fossa There is mild central intrahepatic biliary ductal dilatation. The hepatic veins and portal veins are patent. Gallbladder: Surgically absent noting clips in the gallbladder fossa. Spleen: Normal in size and attenuation. Pancreas: Moderately atrophic and grossly unremarkable. Adrenal glands: Nonspecific thickening of the adrenal glands is similar to previous. Kidneys: The contrast enhanced kidneys are normal in size and without hydronephrosis. The kidneys enh ance symmetrically. Partial nephrectomy change is noted in the left lower pole. Abdominal vasculature: The abdominal aorta is normal in course and caliber noting moderate atheroscle rotic calcification. Stomach and bowel: There is a moderate hiatal hernia with evidence of previous gastric pull-through p rocedure. No bowel obstruction is identified. The appendix is well-visualized and normal. Peritoneum: There is no intraperitoneal free air or abdominal ascites. There is a small fat-containin g umbilical hernia. Lymphadenopathy: None. Pelvic viscera: The prostate gland is surgically absent. The bladder is mildly distended. The wall ap pears thickened and trabeculated indicating chronic outlet obstruction.. Skeletal structures: The skeletal structures are osteopenic. No lytic or blastic lesions are seen. IMPRESSION: 1. No acute infectious or inflammatory findings are identified in the abdomen or pelvis. 2. There is postoperative change from previous gastric pull-through procedure, left partial nephrecto my, cholecystectomy, and prostatectomy. 3. There is no evidence of metastatic disease in the abdomen or pelvis. 4. No bowel obstruction. 5. Additional findings as above. ACT 112: Negative or not required by law. Electronically signed by: Param Li M.D. 03/05/2022 3:13 PM
[2022-03-05] MEDS ORDERED: diphenhydrAMINE 50 MG/ML VIAL IV STA (15:26)
[2022-03-05] MEDS ORDERED: PROCHLORPERAZINE 2 ML IV ONE (15:26)
[2022-03-05] MEDS ORDERED: SODIUM CHLORIDE 0.9% 1000ML 500 ML IV ONE (15:27)
[2022-03-05] MEDS ORDERED: PROMETHAZINE 25 MG/51 ML BAG IV STA (16:13)
[2022-03-05] MEDS ORDERED: PANTOprazole 40 MG in SYRINGE 0 ML IV ONE (16:16)
--- NOTE | 2022-03-05 17:49 | History & Physical Report ---
Date of Service March 05, 2022 Assessment & Plan (1) Abdominal pain: Plan: Patient presents with chronic remitting recurrent abdominal pain his previous seen gastroenterology in the past. Patient will be kept on a clear liquid diet he will be given intravenous PPI and H2 blockers. Sometimes his problems revolve around bowel movements and he will either bring his Movantik and or could be given risks Relastor Patient states he recently started Chantix at home and this may be the issue that causes nausea is only been on for [address] scan is not showing evidence of pancreatic inflammation lipase is only mildly elevated Repeat testing for gluten is there was a mention he had perhaps celiac sensitivity in the past although negative upper and lower endoscopy Patient will see Dr. April Askew or his partners during his hospital stay (2) Hypertension: Plan: Continue lisinopril and clonidine (3) Iron deficiency anemia: Plan: Patient has a history of iron deficiency anemia treated by oncology with intravenous iron when needed (4) Depression: Plan: Continue citalopram (5) Chronic pain: Plan: Patient has chronic pain due to surgery from his multiple cancers he typically takes Suboxone, gabapentin Plan: DVT prevention is heparin subcu History of Present Illness Primary Care Provider: Sarah Rodríguez PA-C Patient presents with upset stomach 2 to 3 days prior. Patient states that today this was worse in the prior 2 days and has vomited approximate 20 times; nonbloody. Patient denies any alcohol use. The patient denies any fevers or chills. The patient did attempt to try to take nausea medication but every time he would do so he would throw up. Patient does have a prior history of a partial left nephrectomy for renal call ca, prostate cancer and esophageal cancer. The patient has had his gallbladder out. Patient states that the majority of his discomfort is in the upper abdomen. It is nonradiating. No chest pain or shortness of breath. The patient has had 24 hours of intractable nausea and vomiting. Patient states he had a recent bowel movement denies any blood in urine or stool. IN the past these symptoms were associated with consitpation He has however started Chantix to try to help stop chewing tobacco!! this is discontinued on admission and maybe the issue, he only has been on it for 4 days mild lipase elevation on presentation as in the past, CT does not show pancreas inflammation Allergies Allergy/AdvReac Type Severity Reaction Status Date / Time No Known Allergies Allergy Verified 12/26/21 12:52 Home Medications Medication Instructions Recorded Confirmed Type buprenorphine 8 mg-naloxone 2 mg 1 tab SUBLINGUAL BID 01/09/21 03/05/22 History sublingual tablet fluoride (sodium) 1.1 % dental 1 applic DENTAL HS 04/13/21 03/05/22 History paste (PreviDent 5000 Booster Plus) polyethylene glycol 3350 17 gram 17 g PO DAILY #100 ea 07/07/21 03/05/22 Rx oral powder packet (Miralax) citalopram 20 mg tablet 20 mg PO QAM #90 tab 07/12/21 03/05/22 Rx dexlansoprazole 60 mg 60 mg PO DAILY #90 cap 09/19/21 03/05/22 Rx capsule,biphase delayed release lisinopril 20 mg tablet 20 mg PO QAM #30 tab 10/01/21 03/05/22 Rx famotidine 40 mg tablet (Pepcid) 20 mg PO QPM 11/27/21 03/05/22 History sucralfate 100 mg/mL oral 1 g PO ACHS PRN 11/27/21 03/05/22 History suspension naloxegol 25 mg tablet (Movantik) 25 mg PO QAM #30 tab 12/01/21 03/05/22 Rx sennosides 8.6 mg tablet (senna) 8.6 mg PO DAILY 12/03/21 03/05/22 History gabapentin 300 mg capsule 300 mg PO TID PRN #90 cap 12/11/21 03/05/22 Rx promethazine 25 mg rectal 25 mg MI Q6H PRN #12 ea 12/30/21 03/05/22 Rx suppository fluticasone propionate 50 1 - 2 spray INTRANASAL BID #16 g 01/14/22 03/05/22 Rx mcg/actuation nasal spray,suspension clonidine HCl 0.1 mg tablet 0.1 mg PO BID PRN #60 tab 01/28/22 03/05/22 Rx cholecalciferol (vitamin D3) 1,250 50,000 unit PO .COMPLEX #8 cap 02/28/22 03/05/22 Rx mcg (50,000 unit) capsule varenicline 0.5 mg tablet 0.5 mg PO .COMPLEX #11 tab 02/28/22 03/05/22 Rx varenicline 1 mg tablet 1 mg PO BID #42 tab 02/28/22 03/05/22 Rx Past Med/Surg History Medical History (Updated 03/05/22 @ 17:47 by Leonel Wright MD) Abdominal pain Recently admitted for abdominal pain- pain improved since discharged on 01/03/21 Abnormal weight loss 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 dx'ed with esophageal cancer in 2007 EGD in 10/2020 did show Barretts with esophagitis and ulcers - put on PPI Candidal esophagitis S/p treatment after EGD Esophageal cancer 2007 s/p chemo and radiation Fissure, anal Pt unsure if still present- getting repeat colonoscopy in the future Fracture of multiple thoracic vertebrae 25 years ago Gastro-esophageal reflux disease with esophagitis Uncontrolled Hepatitis C [id number] Hypertension Lumbago Restless leg No current issues 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 Withdrawal from opioids Was on increased opioids in the past secondary to chronic back pain- weaned off pain medications- was taking herbal supplement (Kraton)= now using Suboxone to taper off supplement Surgical History H/O radical prostatectomy History of anesthesia reaction pt states he woke up during 2 EGD procedures and during shoulder sx History of colonoscopy History of cystoscopy History of esophagectomy 2007 History of esophagogastroduodenoscopy (EGD) recent 10/31/2020 History of nephrectomy, left History of repair of rotator cuff right and left shoulder History of right knee surgery meniscectomy Hx laparoscopic cholecystectomy Status post surgery neck surgery with hardware Family History Father Hypertension Myocardial infarction Coronary heart disease Mother Cancer Skin and Lung Brother Hypertension Other No family history of adverse response to anesthesia Denies family history of Ovarian cancer Prostate cancer Breast cancer Colorectal cancer Social History Smoking Status: Never smoker Tobacco Type: Cigarettes Years Smoked: 10; Second Hand Exposure: Yes; Hx Alcohol Use: No Hx Substance Use: No Preferred Language: Panamanian Communication Ability: Effective Visual Impairment: No Limitations Hearing Ability: Normal Controller Repairer And Tester Required: No Beliefs That Will Affect Care: None marital status: Current Living Situation: Spouse current occupational status: employed 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 Feels Safe at Home: Yes Childhood Exposure to Second-Hand Smoke: Yes caffeine: Yes Dental Care, Regularly: Yes Physical Activity Frequency: Daily Seatbelt Use: always Sunscreen Use: No Assistive Devices: None Review of Systems Review of Systems: Mild to moderate distress and fatigue no headache, no visual changes no speech or swallowing issues no chest pain, pressure or palpitations no shortness of breath, cough or wheezes Epigastric abdominal pain intractable nausea and vomiting no recent constipation or diarrhea no dysuria, hematuria or frequency no focal joint pain or swelling no back pain, CVA tenderness or radicular pain no bruising, bleeding or rashes no focal signs of weakness or numbness or altered sensation no complaints of anxiety or depression.. Physical Exam Physical Exam: The patient appeared well nourished and normally developed, he is sedated from ER medications Vital signs as documented. Head exam is normocephalic atraumatic Neck is without JVD, thyromegaly, or carotid bruits. Lungs are clear to auscultation, no focal loss of breath sounds Cardiac exam, Rhythm is regular.. No murmurs, rubs or gallops. Abdominal exam reveals normal bowel sounds, soft epigastric tenderness no ruq or luq tenderness. no rebound or guarding Extremities are nonedematous and both pedal pulses are present Neurologic exam is alert and oriented, no focal loss of strength or sensation Skin is without bruises or rashes Psychologically is without concerns for anxiety or depression.. Results & Data Results & Data ([facility]) Vital Signs (Past 12 Hours) Vital Signs Temp Pulse Pulse Resp BP BP Pulse Ox 03/05/22 16:00 84 21 141/82 H 98 03/05/22 14:00 76 21 141/81 H 98 03/05/22 12:34 73 21 148/81 H 97 03/05/22 10:50 71 71 20 150/86 H 100 03/05/22 10:35 97.5 F L 73 20 152/86 H 100 Diagnostic Findings Abdomen/Pelvis CT 03/05/22 10:49 CT SCAN OF THE ABDOMEN AND PELVIS WITH IV CONTRAST CLINICAL HISTORY: Upper abdominal pain. Nausea and vomiting. COMPARISON STUDY: Abdominal CT dated 12/30/2021. TECHNIQUE: Following the IV administration of 94 cc of Optiray 320, CT scan of the abdomen and pelvis is performed from the lung bases to the proximal femora. Images are reviewed in the axial, sagittal, and coronal planes. IV contrast was administered without complication. A dose lowering technique was utilized adhering to the principles of ALARA. CT DOSE: 358.28 mGycm FINDINGS: Lung bases: The heart is normal in size and without pericardial effusion. The lung bases are clear. Liver: The contrast-enhanced liver is normal in size, contour, and attenuation. Fatty infiltration is seen adjacent to the gallbladder fossa There is mild central intrahepatic biliary ductal dilatation. The hepatic veins and portal veins are patent. Gallbladder: Surgically absent noting clips in the gallbladder fossa. Spleen: Normal in size and attenuation. Pancreas: Moderately atrophic and grossly unremarkable. Adrenal glands: Nonspecific thickening of the adrenal glands is similar to previous. Kidneys: The contrast enhanced kidneys are normal in size and without hydrone phrosis. The kidneys enhance symmetrically. Partial nephrectomy change is noted in the left lower pole. Abdominal vasculature: The abdominal aorta is normal in course and caliber noting moderate atherosclerotic calcification. Stomach and bowel: There is a moderate hiatal hernia with evidence of previous gastric pull-through procedure. No bowel obstruction is identified. The appendix is well-visualized and normal. Peritoneum: There is no intraperitoneal free air or abdominal ascites. There is a small fat-containing umbilical hernia. Lymphadenopathy: None. Pelvic viscera: The prostate gland is surgically absent. The bladder is mildly distended. The wall appears thickened and trabeculated indicating chronic outlet obstruction.. Skeletal structures: The skeletal structures are osteopenic. No lytic or blastic lesions are seen. IMPRESSION: 1. No acute infectious or inflammatory findings are identified in the abdomen or pelvis. 2. There is postoperative change from previous gastric pull-through procedure, left partial nephrectomy, cholecystectomy, and prostatectomy. 3. There is no evidence of metastatic disease in the abdomen or pelvis. 4. No bowel obstruction. 5. Additional findings as above. ACT 112: Negative or not required by law. Electronically signed by: Param Li M.D. 03/05/2022 3:13 PM PG Care Time/CCT Total # of Minutes Spent Total Time Spent with Patient: Total time spent is greater than 50% in coordination of care (as documented) at patient's floor/unit and/or counseling patient: Coding Level of Care Code INT OBSERVATION CARE 50M LVL 2 Diagnoses Abdominal pain R10.9 Iron deficiency anemia D50.9 Hypertension I10 Hypertension type: unspecified Depression F32.9 Chronic pain G89.29 (1) Hypertension Hypertension type: unspecified Qualified Code(s): I10 - Essential (primary) hypertension
[2022-03-05] MEDS ORDERED: cloNIDine HCL 0.1 MG TAB PO PRN (20:54)
[2022-03-05] MEDS ORDERED: HYDROmorphone INJ 1 MG/ML SYRINGE IV PRN (20:54)
[2022-03-05] MEDS ORDERED: HYDROmorphone INJ 0.5 MG/0.5 ML SYR IV PRN (20:54)
[2022-03-05] MEDS: SUCRALFATE 1 GM/10 ML UDC PO SCH (21:56)
[2022-03-05] MEDS: FAMOTIDINE 20 MG in SYRINGE 3 ML IV SCH (21:56)
[2022-03-05] MEDS: PANTOprazole 40 MG in SYRINGE 0 ML IV SCH (21:56)
[2022-03-05] MEDS: BUPRENORPHINE/NALOXONE 8/2 MG TAB SL SCH (21:56)
[2022-03-05] MEDS: HEPARIN SOD 5,000 UNIT/0.5 ML VIAL SQ SCH (21:57)
[2022-03-05] MEDS: FLUTICASONE PROPIONATE NA SPR 16 GM BTL SCH (21:57)
[2022-03-05] MEDS: PROMETHAZINE HCL 12.5 MG in SODIUM CHLORIDE 0.9% 50 ML IV PRN (22:16)
[2022-03-05] MEDS: NORMOSOL-R 1,000 ML IV SCH (22:32)
[2022-03-06 07:42] LABS: BUN Creatinine Ratio 19.1 (10-20); Calcium 8.6 mg/dl (8.5-10.1); Creatinine Clr Calc Pharmacy 115.4 ml/min; Est GFR (Non-African American) 105.3 ml/min; Potassium 3.8 mmol/L (3.5-5.1)
[2022-03-06] MEDS: FLUTICASONE PROPIONATE NA SPR 16 GM BTL SCH ×2 (07:54→21:21)
[2022-03-06] MEDS: POLYETHYLENE (MIRALAX) 17 GM PACK PO SCH (07:55)
[2022-03-06] MEDS: lisinopril 20 MG TAB PO SCH (07:55)
[2022-03-06] MEDS: CITALOPRAM 20 MG TAB PO SCH (07:56)
[2022-03-06] MEDS: SENNA 8.6 MG TAB PO SCH (07:56)
[2022-03-06] MEDS: NORMOSOL-R 1,000 ML IV SCH ×2 (08:49→18:27)
[2022-03-06] MEDS: BUPRENORPHINE/NALOXONE 8/2 MG TAB SL SCH ×2 (08:50→21:21)
[2022-03-06] MEDS: HEPARIN SOD 5,000 UNIT/0.5 ML VIAL SQ SCH ×2 (08:51→21:21)
[2022-03-06] MEDS: PANTOprazole 40 MG in SYRINGE 0 ML IV SCH ×2 (08:52→21:21)
[2022-03-06] MEDS: FAMOTIDINE 20 MG in SYRINGE 3 ML IV SCH ×2 (08:52→21:51)
[2022-03-06] MEDS: SUCRALFATE 1 GM/10 ML UDC PO SCH ×4 (08:52→21:21)
[2022-03-06 10:15] LABS: Cortisol Random 7.75 mcg/dl
[2022-03-06 10:24] LABS: Ferritin 352.5 ng/ml (8-388)
[2022-03-06 10:29] LABS: Folate (Folic Acid) 16.13 ng/ml (>5.38)
--- NOTE | 2022-03-06 13:15 | Gastrointestinal Consultation ---
Date of Consultation March 06, 2022 Assessment & Plan (1) Abdominal pain: (2) Intractable nausea and vomiting: This is a 56 y/o male with PMhx Murry's, esophageal cancer, (adenocarcinoma at the [facility]), s/p esophagectomy with gastric pull-up in 2009, on chronic Subuxone, chronic anemia on iron, chronic constipation, chronic intermittent abd pain, recurrent n/v, and others who presented to the ER w/ n/v. Currently vomiting has resolved. He has chronic intermittent abd pain which is not worse than his baseline. Recently had EUS and colonoscopy as above. N/v tends to worsens when he gets constipated. He tolerated clears for breakfast and has had no vomiting today. On exam abd is soft. - As he is on Movantik but not feeling this is helping will work on getting him switched to Motegrity - Would recommend daily Miralax as well - Can advance diet to full liquids if tolerated - Daily PPI - Encouraged to quit tobacco use - F/u as OP with GI as scheduled Thank you for allowing us to participate in the care of this patient. Please call with any acute changes, questions or concerns. Please see addendum below with additional recommendation from my supervising physician. Supervising Physician Co-Signing Physician Notes I performed a history and physical examination of the patient today, including specifically on physical exam - soft abdomen. I have discussed the patient's management with the advanced practitioner. Please refer to the nurse practitioner's note for the documented findings and plan of care. Recurrent admission with nausea, vomiting and abdominal discomfort of unclear etiogy, extensive GI work so far unrevealing. ? chronic pancreatitis. ? Opioid related. ? Adhesions from prior surgery. Plan: Advance diet to regular diet now. Antiemetics. Change Movantik to Motegrity as OP. VCE as OP. Testing for EPI as OP. Recall GI if needed. History of Present Illness Reason for Consultation: recurrent abd pain Requesting Physician: Dr. Wright Attending Physician: Micky Leong History of Present Illness This is a 56 y/o male with PMhx Murry's, esophageal cancer, (adenocarcinoma at the [facility]), s/p esophagectomy with gastric pull-up in 2009, on chronic Subuxone, chronic anemia on iron, HTN, HLD, occasional SBO, chronic constipation, recurrent n/v, and others who presented to the ER w/ n/v, constipation. Has been working with GI as an outpatient to improve constipation, stool burden which can prompt his n/v. Had been on Linzess, but it gave him diarrhea. Recently switched to Movantik which he takes daily along with Senna + Dulcolax. On this regimen he has a BM approx every 1-2 days, usually loose; he doesn't think this helping. Presented to the ER yesterday with 2 days of nonbloody vomiting multiple episodes per day. He recently started Chantix to quit chewing tobacco. On arrival labs at baseline, lipase mildly elevated (chronic), CTAP nonacute. Vomiting has resolved. He tolerate some Jello today. Has chronic intermittent upper abd discomfort which is not changed from his typical presentation. Recent EUS last month was unremarkable, recently colonoscopy in December w/ some polyps. No melena, hematochezia, hematemesis, change in appetite, fever, chills, CP, SOB, leg edema, jaundice, icterus, dark urine, osman stool. EUS 01/2022: - Z-line regular, 31 cm from the incisors. - An esophago-gastric anastomosis was found with gastric pull up and pyloroplasty was found. - Normal duodenal bulb and second portion of the duodenum. - There was no sign of significant pathology in the ampulla. - There was no sign of significant pathology in the common bile duct. No stones or sludge. - Evidence of a cholecystectomy. - There was no evidence of significant pathology in the visualized portion of the liver. - There was no sign of significant pathology in the entire pancreas. - No specimens collected. Colonoscopy 12/2021: - Preparation of the colon was fair. - The examined colon appeared normal. - One 8 mm polyp in the cecum, removed with a cold snare. Resected and retrieved. - One 6 mm polyp in the ascending colon, removed with a cold snare. Resected and retrieved. - Internal hemorrhoids. - The examination was otherwise normal on direct and retroflexion views EGD 2020:- An esophago-gastric anastomosis was found. Biopsied. - Normal stomach. - Normal examined duodenum. Colonoscopy 2020: Poor prep. Hemorrhoids. Repeat 3 months EGD 2019: - Normal esophagus. - Bilious gastric fluid. Normal appearing stomach. Biopsies were obtained from the stomach. - Normal examined small intestine. Biopsied. Colonoscopy 2010: Preparation of the colon was poor. - Internal hemorrhoids. - Anal fissure. Allergies Allergy/AdvReac Type Severity Reaction Status Date / Time No Known Allergies Allergy Verified 12/26/21 12:52 Home Medications Medication Instructions Recorded Confirmed Type buprenorphine 8 mg-naloxone 2 mg 1 tab SUBLINGUAL BID 01/09/21 03/05/22 History sublingual tablet fluoride (sodium) 1.1 % dental 1 applic DENTAL HS 04/13/21 03/05/22 History paste (PreviDent 5000 Booster Plus) polyethylene glycol 3350 17 gram 17 g PO DAILY #100 ea 07/07/21 03/05/22 Rx oral powder packet (Miralax) citalopram 20 mg tablet 20 mg PO QAM #90 tab 07/12/21 03/05/22 Rx dexlansoprazole 60 mg 60 mg PO DAILY #90 cap 09/19/21 03/05/22 Rx capsule,biphase delayed release lisinopril 20 mg tablet 20 mg PO QAM #30 tab 10/01/21 03/05/22 Rx famotidine 40 mg tablet (Pepcid) 20 mg PO QPM 11/27/21 03/05/22 History sucralfate 100 mg/mL oral 1 g PO ACHS PRN 11/27/21 03/05/22 History suspension naloxegol 25 mg tablet (Movantik) 25 mg PO QAM #30 tab 12/01/21 03/05/22 Rx sennosides 8.6 mg tablet (senna) 8.6 mg PO DAILY 12/03/21 03/05/22 History gabapentin 300 mg capsule 300 mg PO TID PRN #90 cap 12/11/21 03/05/22 Rx promethazine 25 mg rectal 25 mg OK Q6H PRN #12 ea 12/30/21 03/05/22 Rx suppository fluticasone propionate 50 1 - 2 spray INTRANASAL BID #16 g 01/14/22 03/05/22 Rx mcg/actuation nasal spray,suspension clonidine HCl 0.1 mg tablet 0.1 mg PO BID PRN #60 tab 01/28/22 03/05/22 Rx cholecalciferol (vitamin D3) 1,250 50,000 unit PO .COMPLEX #8 cap 02/28/22 03/05/22 Rx mcg (50,000 unit) capsule varenicline 0.5 mg tablet 0.5 mg PO .COMPLEX #11 tab 02/28/22 03/05/22 Rx varenicline 1 mg tablet 1 mg PO BID #42 tab 02/28/22 03/05/22 Rx Patient History Medical History (Updated 03/05/22 @ 17:47 by Leonel Wright MD) Abdominal pain Recently admitted for abdominal pain- pain improved since discharged on 01/03/21 Abnormal weight loss 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 dx'ed with esophageal cancer in 2007 EGD in 10/2020 did show Barretts with esophagitis and ulcers - put on PPI Candidal esophagitis S/p treatment after EGD Esophageal cancer 2007 s/p chemo and radiation Fissure, anal Pt unsure if still present- getting repeat colonoscopy in the future Fracture of multiple thoracic vertebrae 25 years ago Gastro-esophageal reflux disease with esophagitis Uncontrolled Hepatitis C [id number] Hypertension Lumbago Restless leg No current issues 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 Withdrawal from opioids Was on increased opioids in the past secondary to chronic back pain- weaned off pain medications- was taking herbal supplement (Kraton)= now using Suboxone to taper off supplement Surgical History H/O radical prostatectomy History of anesthesia reaction pt states he woke up during 2 EGD procedures and during shoulder sx History of colonoscopy History of cystoscopy History of esophagectomy 2007 History of esophagogastroduodenoscopy (EGD) recent 10/31/2020 History of nephrectomy, left History of repair of rotator cuff right and left shoulder History of right knee surgery meniscectomy Hx laparoscopic cholecystectomy Status post surgery neck surgery with hardware Family History Father Hypertension Myocardial infarction Coronary heart disease Mother Cancer Skin and Lung Brother Hypertension Other No family history of adverse response to anesthesia Denies family history of Ovarian cancer Prostate cancer Breast cancer Colorectal cancer Social History Smoking Status: Unknown if ever smoked Tobacco Type: Cigarettes Years Smoked: 10; Second Hand Exposure: No; Do You Dip or Chew Tobacco: No; Tobacco Cessation Education Requested by Patient: No Hx Alcohol Use: No Hx Substance Use: Yes Substance Use Type Other:: Suboxone Preferred Language: Latvian Communication Ability: Effective Visual Impairment: No Limitations Hearing Ability: Normal Gas Fitter Apprentice Required: No Beliefs That Will Affect Care: None marital status: Current Living Situation: Spouse current occupational status: employed 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 Other Information That Helps Us Care for You: No Feels Safe at Home: Yes Safety Concerns: Feels Safe At This Time Childhood Exposure to Second-Hand Smoke: Yes caffeine: Yes Dental Care, Regularly: Yes Physical Activity Frequency: Daily Seatbelt Use: always Sunscreen Use: No Assistive Devices: None Review of Systems Review of Systems: All systems reviewed & are unremarkable except as noted in HPI & below Physical Exam Constitutional: WD/WN, vitals as above Eyes: PERRL, conjunctivae normal, anicteric sclerae ENMT: external ear and nose normal, oropharynx normal Respiratory: normal respiratory effort, lungs clear to auscultation Cardiovascular: RRR, no murmur, no edema Gastrointestinal (Abdomen): Mildly tender to the epigastrium, no guarding rebound or distention. Abdomen is soft. Bowel sounds x4 quadrants. No masses. Skin: no rashes, warm and dry Psychiatric: A+Ox3, euthymic affect Results & Data ([facility]) Vital Signs (Past 12 Hours) Vital Signs Temp Pulse Resp BP Pulse Ox 03/06/22 07:24 36.6 C 69 18 118/73 97 Laboratory Results 03/06/22 03/06/22 03/06/22 Range/Units 09:32 09:32 09:32 Sodium (136-145) mmol/L Potassium (3.5-5.1) mmol/L Chloride (98-107) mmol/L Carbon Dioxide (21-32) mmol/L Anion Gap (3-11) BUN (6-23) mg/dl Creatinine (0.6-1.4) mg/dl Est Cr Clr Drug Dosing ml/min Est GFR ( Amer) ml/min Est GFR (Non-Af Amer) ml/min BUN/Creatinine Ratio (10-20) Glucose (70-99(Fasting)) mg/dl Calcium (8.5-10.1) mg/dl Iron (35-175) mcg/dl Unsaturated IBC (155-355) mcg/dl Ferritin 352.5 (8-388) ng/ml Lipase 195 H (11-82) U/L Vitamin B12 298 (180-914) pg/ml Folate 16.13 (>5.38) ng/ml Random Cortisol 7.75 mcg/dl Urine Color Urine Appearance (Clear) Urine pH (4.5-7.5) Ur Specific [place] (1.000-1.030) Urine Protein (Negative) Urine Glucose (UA) (Negative) Urine Ketones (Negative) Urine Blood (Negative) Urine Nitrite (Negative) Urine Bilirubin (Negative) Urine Urobilinogen (Negative) Ur Leukocyte Esterase (Negative) Tiss Transglutamin IgA SARS-CoV-2, RNA, NAAT (NEGATIVE) 03/06/22 03/06/22 03/05/22 Range/Units 06:42 06:42 17:25 Sodium 141 (136-145) mmol/L Potassium 3.8 (3.5-5.1) mmol/L Chloride 110 H (98-107) mmol/L Carbon Dioxide 25 (21-32) mmol/L Anion Gap 6 (3-11) BUN 13 (6-23) mg/dl Creatinine 0.68 (0.6-1.4) mg/dl Est Cr Clr Drug Dosing 115.4 ml/min Est GFR ( Amer) 122.0 ml/min Est GFR (Non-Af Amer) 105.3 ml/min BUN/Creatinine Ratio 19.1 (10-20) Glucose 91 (70-99(Fasting)) mg/dl Calcium 8.6 (8.5-10.1) mg/dl Iron 212 H (35-175) mcg/dl Unsaturated IBC 95 L (155-355) mcg/dl Ferritin (8-388) ng/ml Lipase (11-82) U/L Vitamin B12 (180-914) pg/ml Folate (>5.38) ng/ml Random Cortisol mcg/dl Urine Color Urine Appearance (Clear) Urine pH (4.5-7.5) Ur Specific [place] (1.000-1.030) Urine Protein (Negative) Urine Glucose (UA) (Negative) Urine Ketones (Negative) Urine Blood (Negative) Urine Nitrite (Negative) Urine Bilirubin (Negative) Urine Urobilinogen (Negative) Ur Leukocyte Esterase (Negative) Tiss Transglutamin IgA Pending SARS-CoV-2, RNA, NAAT NEGATIVE (NEGATIVE) 03/05/22 Range/Units 14:32 Sodium (136-145) mmol/L Potassium (3.5-5.1) mmol/L Chloride (98-107) mmol/L Carbon Dioxide (21-32) mmol/L Anion Gap (3-11) BUN (6-23) mg/dl Creatinine (0.6-1.4) mg/dl Est Cr Clr Drug Dosing ml/min Est GFR ( Amer) ml/min Est GFR (Non-Af Amer) ml/min BUN/Creatinine Ratio (10-20) Glucose (70-99(Fasting)) mg/dl Calcium (8.5-10.1) mg/dl Iron (35-175) mcg/dl Unsaturated IBC (155-355) mcg/dl Ferritin (8-388) ng/ml Lipase (11-82) U/L Vitamin B12 (180-914) pg/ml Folate (>5.38) ng/ml Random Cortisol mcg/dl Urine Color Yellow Urine Appearance Clear (Clear) Urine pH 7.0 (4.5-7.5) Ur Specific [place] > 1.045 H (1.000-1.030) Urine Protein Negative (Negative) Urine Glucose (UA) Negative (Negative) Urine Ketones 1+ H (Negative) Urine Blood Negative (Negative) Urine Nitrite Negative (Negative) Urine Bilirubin Negative (Negative) Urine Urobilinogen Negative (Negative) Ur Leukocyte Esterase Negative (Negative) Tiss Transglutamin IgA SARS-CoV-2, RNA, NAAT (NEGATIVE) Diagnostic Findings CTAP: Lung bases: The heart is normal in size and without pericardial effusion. The lung bases are clear. Liver: The contrast-enhanced liver is normal in size, contour, and attenuation. Fatty infiltration is seen adjacent to the gallbladder fossa There is mild central intrahepatic biliary ductal dilatation. The hepatic veins and portal veins are patent. Gallbladder: Surgically absent noting clips in the gallbladder fossa. Spleen: Normal in size and attenuation. Pancreas: Moderately atrophic and grossly unremarkable. Adrenal glands: Nonspecific thickening of the adrenal glands is similar to previous. Kidneys: The contrast enhanced kidneys are normal in size and without hydronephrosis. The kidneys enhance symmetrically. Partial nephrectomy change is noted in the left lower pole. Abdominal vasculature: The abdominal aorta is normal in course and caliber noting moderate atherosclerotic calcification. Stomach and bowel: There is a moderate hiatal hernia with evidence of previous gastric pull-through procedure. No bowel obstruction is identified. The appendix is well-visualized and normal. Peritoneum: There is no intraperitoneal free air or abdominal ascites. There is a small fat-containing umbilical hernia. Lymphadenopathy: None. Pelvic viscera: The prostate gland is surgically absent. The bladder is mildly distended. The wall appears thickened and trabeculated indicating chronic outlet obstruction.. Skeletal structures: The skeletal structures are osteopenic. No lytic or blastic lesions are seen. IMPRESSION: 1. No acute infectious or inflammatory findings are identified in the abdomen or pelvis. 2. There is postoperative change from previous gastric pull-through procedure, left partial nephrectomy, cholecystectomy, and prostatectomy. 3. There is no evidence of metastatic disease in the abdomen or pelvis. 4. No bowel obstruction. 5. Additional findings as above
[2022-03-06] MEDS: CYANOCOBALAMIN (B-12) 500 MCG TABLET PO SCH (16:26)
--- NOTE | 2022-03-06 17:31 | XRay Report ---
KUB HISTORY: Acute generalized abdominal pain opiated-induced constipation; assess fecal load COMPARISON: CT abdomen and pelvis 03/05/2022 FINDINGS: Pattern is nonobstructive. No significant colonic fecal retention. Surgical suture material and surgi verito clips are redemonstrated within the abdomen. Unchanged pelvic basin phleboliths. No renal calcul i. No ureteral calculi. No pneumoperitoneum or pneumatosis. No fracture. IMPRESSION: 1. Nonobstructive bowel gas pattern. 2. No radiographic evidence of constipation. ACT 112: Negative or not required by law. The above report was generated using voice recognition software. It may contain grammatical, syntax o r spelling errors. Electronically signed by: Mustapha Madrid M.D. 03/06/2022 5:29 PM
[2022-03-06] MEDS: PROMETHAZINE HCL 12.5 MG in SODIUM CHLORIDE 0.9% 50 ML IV PRN (20:57)
--- NOTE | 2022-03-06 22:09 | Hospitalist Progress Note ---
Date of Service March 06, 2022 Assessment & Plan (1) Abdominal pain: Plan: Improved. Nausea/emesis/dyspepsia -- 2nd to severe side effects from Chantix? viral gastroenteritis? motility issues in setting of chronic Suboxone use? Severe constipation? Pancreatitis (low-grade)? combination of factors? regardless of prime etiology symptoms much improved. appreciate [facility] GI consultation. EGD/EUS from 01/2022 noted (completely normal). advance diet to regular. repeat labs in am. I do not believe he has adrenal insufficiency - defer on cosyntropin stim test. KUB x-rays - assess stool burden. Cont PPI. GI recs for capsule endoscopy and w/u for pancreatic insufficiency noted (2) Hypertension: Plan: Continue lisinopril and clonidine (3) Iron deficiency anemia: Plan: Patient has a history of iron deficiency anemia treated by oncology with intravenous iron Would stop any PO supplementation given its GI side effects and adequate Fe stores on labs this admission (4) Depression: Plan: Continue citalopram (5) Chronic pain: Plan: Patient has chronic pain due to surgery from his multiple cancers On chronic Suboxone + gabapentin Continue both GI to change his Movantik to another agent as outpatient Plan: DVT proph - heparin SC Low-normal B12 level - start PO b12 1000mcg daily lower IV fluid rate to 50cc/hr hopefully d/c home tomorrow if tolerating diet Admission and Anticipated Discharge Date Admission Date: March 05, 2022 Subjective patient feels better today than at admission and certainly much better than at home much less nausea requests advancement in diet does confirm he had just increased the chantix medication for smoking cessation about 24 hours before the nausea and vomiting got severe his last BM was yesterday - very small and prior BM before that was 2-3 days prior he admits he had been taking oral iron supplementation recently despite receiving IV iron as outpatient Review of Systems Review of Systems: gen - no fevers or chills cv - had near-syncope while vomiting; 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 when 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 pulm - no cough or respiratory symptoms GI - dyspepsia, mild stomach cramping/upset, no abd pain Physical Exam Physical Exam: gen - NAD, awake, alert mouth - MM slightly dry heart - RRR, s1 s2 lungs - CTA b/l abd - soft, ND, BS+, minimal tenderness epigastric region; no HSM ext - no edema, pulses 2+ b/l psych - a/o x 3 Results & Data Results & Data ([facility]) Vital Signs (Past 12 Hours) Vital Signs Temp Pulse Resp BP Pulse Ox 03/06/22 15:20 37.1 C 68 16 129/76 97 Laboratory Results Laboratory Results - last 24 hr 03/06/22 03/06/22 03/06/22 06:42 06:42 09:32 Sodium 141 Potassium 3.8 Chloride 110 H Carbon Dioxide 25 Anion Gap 6 BUN 13 Creatinine 0.68 Est Cr Clr Drug Dosing 115.4 Est GFR ( Amer) 122.0 Est GFR (Non-Af Amer) 105.3 BUN/Creatinine Ratio 19.1 Glucose 91 Calcium 8.6 Iron 212 H Unsaturated IBC 95 L Ferritin 352.5 Lipase 195 H Vitamin B12 Folate Random Cortisol Tiss Transglutamin IgA Pending 03/06/22 03/06/22 09:32 09:32 Sodium Potassium Chloride Carbon Dioxide Anion Gap BUN Creatinine Est Cr Clr Drug Dosing Est GFR ( Amer) Est GFR (Non-Af Amer) BUN/Creatinine Ratio Glucose Calcium Iron Unsaturated IBC Ferritin Lipase Vitamin B12 298 Folate 16.13 Random Cortisol 7.75 Tiss Transglutamin IgA PG Care Time/CCT Total # of Minutes Spent Total Time Spent with Patient: Total time spent is greater than 50% in coordination of care (as documented) at patient's floor/unit and/or counseling patient: Coding Level of Care Code 15458 Subseq Obs Care Lvl 3 Diagnoses Abdominal pain R10.9 Hypertension I10 Hypertension type: unspecified Iron deficiency anemia D50.9 Depression F32.9 Chronic pain G89.29 (1) Hypertension Hypertension type: unspecified Qualified Code(s): I10 - Essential (primary) hypertension
[2022-03-07] MEDS ORDERED: SODIUM CHLORIDE 0.65% NA SOLN 45 ML (OCEAN) ONE (01:22)
[2022-03-07] MEDS: PROMETHAZINE HCL 12.5 MG in SODIUM CHLORIDE 0.9% 50 ML IV PRN (04:42)
[2022-03-07] MEDS: HEPARIN SOD 5,000 UNIT/0.5 ML VIAL SQ SCH ×2 (07:32→20:58)
[2022-03-07] MEDS: SENNA 8.6 MG TAB PO SCH (07:32)
[2022-03-07] MEDS: CYANOCOBALAMIN (B-12) 500 MCG TABLET PO SCH (07:32)
[2022-03-07] MEDS: lisinopril 20 MG TAB PO SCH (07:32)
[2022-03-07] MEDS: SUCRALFATE 1 GM/10 ML UDC PO SCH ×4 (07:32→20:57)
[2022-03-07] MEDS: FAMOTIDINE 20 MG in SYRINGE 3 ML IV SCH ×2 (07:33→20:57)
[2022-03-07] MEDS: POLYETHYLENE (MIRALAX) 17 GM PACK PO SCH (07:33)
[2022-03-07] MEDS: PANTOprazole 40 MG in SYRINGE 0 ML IV SCH ×2 (07:33→20:57)
[2022-03-07] MEDS: FLUTICASONE PROPIONATE NA SPR 16 GM BTL SCH ×2 (07:33→20:57)
[2022-03-07] MEDS: CITALOPRAM 20 MG TAB PO SCH (07:33)
[2022-03-07 07:35] LABS: BUN Creatinine Ratio 10.4 (10-20); Calcium 8.7 mg/dl (8.5-10.1); Creatinine Clr Calc Pharmacy 101.9 ml/min; Est GFR (African American) 115.9 ml/min; Magnesium 1.8 mg/dl (1.7-2.4); Potassium 3.9 mmol/L (3.5-5.1)
[2022-03-07] MEDS: BUPRENORPHINE/NALOXONE 8/2 MG TAB SL SCH ×2 (09:13→20:57)
[2022-03-07] MEDS: NORMOSOL-R 1,000 ML IV SCH (09:16)
[2022-03-07] MEDS: LACTATED RINGER'S 1,000 ML IV SCH ×2 (12:07→20:57)
--- NOTE | 2022-03-07 12:07 | Hospitalist Progress Note ---
Date of Service March 07, 2022 Assessment & Plan (1) Abdominal pain: Plan: acute/chronic. acute - low-grade pancreatitis? constipation? viral gastroenteritis? non-GI (e.g. prashant's, etc)? other? combination of factors? could recent chantix have made worse?? clearly he is not well today despite supportive care. plan - * downgrade diet to clears * resume IV fluids * stop IV dilaudid which will make his motility problems worse (and constipation worse) * anti-emetics as needed * repeat lipase in am * cortisol level only 7 -- will plan on formal cosyntropin stim test in am; npo x 10 hours, with stim test at 8am tomorrow morning I spoke with ensembli - defer on trial of creon at this time. Defer on repeat CT a/p. I did speak with the patient late in the day today after bowel rest/clears through the afternoon. He reports the nausea is better and discomfort improved. Watch overnight; re-eval tomorrow. (2) Elevated lipase: Plan: etiology uncertain and significance unclear. only minimally elevated, and has been such since early this year. CT a/p at admission with pancreatic atrophy but no calcifications and no inflammation to suggest acute pancreatitis. EGD/EUS in January by [facility] showed no abnormalities. low-grade chronic pancreatitis? patient to have pancreatic insufficiency work-up by [facility] as outpatient. repeat lipase am. (3) Hypertension: Plan: Continue lisinopril and clonidine (4) Iron deficiency anemia: Plan: Patient has a history of iron deficiency anemia treated by oncology with intravenous iron Would stop any PO supplementation given its GI side effects and adequate Fe stores on labs this admission (5) Depression: Plan: Continue citalopram Consider adding remeron 7.5mg HS - this may help his chronic GI issues (6) Chronic pain: Plan: Patient has chronic pain due to surgery from his multiple cancers On chronic Suboxone + gabapentin Continue both GI to change his Movantik to another agent as outpatient Plan: DVT proph - heparin SC Low-normal B12 level - continue PO b12 1000mcg daily resume IV fluids change OBSERVATION status to full admission status Admission and Anticipated Discharge Date Admission Date: March 05, 2022 Subjective pt states that after eating dinner last pm (meatloaf, etc) he had nausea/dyspepsia/mild upper abd discomfort about 20 minutes after he subsequently felt poorly for the remainder of the night this am he ate 100% of breakfast - but 20 minutes later once again had similar symptoms like last pm he endorses chronic dyspepsia/stomach discomfort at home even on his best days (the discomfort is in the upper abdomen near his esophagectomy scar) but the symptoms last pm and today are worse he has not had a bowel movement overnight despite the nausea he has had no vomiting he is dismayed by how he feels & his symptoms Review of Systems Review of Systems: gen - no fevers, no chills cv - no chest pain pulm - no cough or dyspnea GI - no diarrhea Physical Exam Physical Exam: gen - NAD, awake, alert, pleasant skin - darkly tanned; denies recent sun exposure mouth - MMM heart - RRR, s1 s2, no murmur lungs - CTA b/l abd - soft, ND, BS+, mild tenderness epigastric region; no HSM; no peritoneal signs ext - no edema, pulses 2+ b/l psych - a/o x 3 Results & Data Results & Data ([facility]) Vital Signs (Past 12 Hours) Vital Signs Temp Pulse Resp BP Pulse Ox 03/07/22 07:28 36.8 C 64 16 146/83 H 98 Laboratory Results Laboratory Results - last 24 hr 03/07/22 06:49 Sodium 138 Potassium 3.9 Chloride 106 Carbon Dioxide 29 Anion Gap 3 BUN 8 Creatinine 0.77 Est Cr Clr Drug Dosing 101.9 Est GFR ( Amer) 115.9 Est GFR (Non-Af Amer) 100.0 BUN/Creatinine Ratio 10.4 Glucose 112 H Calcium 8.7 Magnesium 1.8 Lipase 181 H PG Care Time/CCT Total # of Minutes Spent Total Time Spent with Patient: Total time spent is greater than 50% in coordination of care (as documented) at patient's floor/unit and/or counseling patient: Coding Level of Care Code 71500 Subseq Hosp Care Lvl 3 Diagnoses Abdominal pain R10.9 Hypertension I10 Hypertension type: unspecified Iron deficiency anemia D50.9 Depression F32.9 Chronic pain G89.29 Elevated lipase R74.8 (1) Hypertension Hypertension type: unspecified Qualified Code(s): I10 - Essential (primary) hypertension
[2022-03-07] MEDS ORDERED: KETOROLAC 30 MG/ML VIAL IV ONE (17:40)
[2022-03-07] MEDS ORDERED: ONDANSETRON INJ 2 MG/ML 2 ML VIAL IV ONE (17:41)
[2022-03-08] MEDS ORDERED: KETOROLAC 30 MG/ML VIAL IV ONE (00:33)
[2022-03-08] MEDS ORDERED: KETOROLAC 30 MG/ML VIAL ONE (00:42)
[2022-03-08] MEDS: CALCIUM CARBONATE 500 MG CHEWABLE TAB PO PRN ×3 (01:11→06:21)
[2022-03-08] MEDS: LACTATED RINGER'S 1,000 ML IV SCH (06:21)
[2022-03-08] MEDS ORDERED: COSYNTROPIN 1 MCG in SYRINGE 0 ML IV ONE (08:00)
[2022-03-08] MEDS: FAMOTIDINE 20 MG in SYRINGE 3 ML IV SCH (08:09)
[2022-03-08] MEDS: SUCRALFATE 1 GM/10 ML UDC PO SCH ×3 (08:09→18:07)
[2022-03-08] MEDS: BUPRENORPHINE/NALOXONE 8/2 MG TAB SL SCH (08:09)
[2022-03-08] MEDS: PANTOprazole 40 MG in SYRINGE 0 ML IV SCH (08:09)
[2022-03-08] MEDS: SENNA 8.6 MG TAB PO SCH (08:10)
[2022-03-08] MEDS: CITALOPRAM 20 MG TAB PO SCH (08:10)
[2022-03-08] MEDS: lisinopril 20 MG TAB PO SCH (08:10)
[2022-03-08] MEDS: CYANOCOBALAMIN (B-12) 500 MCG TABLET PO SCH (08:10)
[2022-03-08] MEDS: FLUTICASONE PROPIONATE NA SPR 16 GM BTL SCH (08:11)
[2022-03-08] MEDS: HEPARIN SOD 5,000 UNIT/0.5 ML VIAL SQ SCH (08:11)
[2022-03-08 09:31] LABS: BUN Creatinine Ratio 8.5 (10-20); Calcium 8.6 mg/dl (8.5-10.1); Creatinine Clr Calc Pharmacy 95.7 ml/min; Est GFR (Non-African American) 97.5 ml/min; Potassium 4.1 mmol/L (3.5-5.1)
[2022-03-08] MEDS: POLYETHYLENE (MIRALAX) 17 GM PACK PO SCH (10:38)
[2022-03-08] MEDS ORDERED: bisacodyL 10 MG SUPP PR STA (11:21)
--- NOTE | 2022-03-08 18:14 | Discharge Summary ---
Date of Service March 08, 2022 Admission HPI Per Admitting Provider Patient presents with upset stomach 2 to 3 days prior. Patient states that today this was worse in the prior 2 days and has vomited approximate 20 times; nonbloody. Patient denies any alcohol use. The patient denies any fevers or chills. The patient did attempt to try to take nausea medication but every time he would do so he would throw up. Patient does have a prior history of a partial left nephrectomy for renal call ca, prostate cancer and esophageal cancer. The patient has had his gallbladder out. Patient states that the majority of his discomfort is in the upper abdomen. It is nonradiating. No chest pain or shortness of breath. The patient has had 24 hours of intractable nausea and vomiting. Patient states he had a recent bowel movement denies any blood in urine or stool. IN the past these symptoms were associated with consitpation He has however started Chantix to try to help stop chewing tobacco!! this is discontinued on admission and maybe the issue, he only has been on it for 4 days mild lipase elevation on presentation as in the past, CT does not show pancreas inflammation Discharge Exam gen - NAD, awake, alert, pleasant skin - darkly tanned; denies recent sun exposure mouth - MMM heart - RRR, s1 s2, no murmur lungs - CTA b/l abd - soft, ND, BS+, mild tenderness epigastric region; no HSM; no peritoneal signs ext - no edema, pulses 2+ b/l psych - a/o x 3 Discharge Data Allergies Allergy/AdvReac Type Severity Reaction Status Date / Time No Known Allergies Allergy Verified 12/26/21 12:52 Consultations 03/05/22 17:21 ED Decision to Admit Stat 03/05/22 20:54 Consult Gastroenterology Routine Ordered Studies 03/05/22 10:49 CT abd pelvis IV con only Stat Hospital Course (1) Abdominal pain: acute/chronic. acute - low-grade pancreatitis? constipation? viral gastroenteritis? non-GI (e.g. prashant's, etc)? other? combination of factors? could recent chantix have made worse?? clearly he is not well today despite supportive care. plan - * downgrade diet to clears * resume IV fluids * stop IV dilaudid which will make his motility problems worse (and constipation worse) * anti-emetics as needed * repeat lipase in am * cortisol level only 7 -- will plan on formal cosyntropin stim test in am; npo x 10 hours, with stim test at 8am tomorrow morning I spoke with Armando OROZCO - defer on trial of creon at this time. Defer on repeat CT a/p. I did speak with the patient late in the day today after bowel rest/clears through the afternoon. He reports the nausea is better and discomfort improved. Watch overnight; re-eval tomorrow. (2) Elevated lipase: etiology uncertain and significance unclear. only minimally elevated, and has been such since early this year. CT a/p at admission with pancreatic atrophy but no calcifications and no inflammation to suggest acute pancreatitis. EGD/EUS in January by Armando OROZCO showed no abnormalities. low-grade chronic pancreatitis? patient to have pancreatic insufficiency work-up by Armando OROZCO as outpatient. repeat lipase am. (3) Hypertension: Continue lisinopril and clonidine (4) Iron deficiency anemia: Patient has a history of iron deficiency anemia treated by oncology with intravenous iron Would stop any PO supplementation given its GI side effects and adequate Fe stores on labs this admission (5) Depression: Continue citalopram Consider adding remeron 7.5mg HS - this may help his chronic GI issues (6) Chronic pain: Patient has chronic pain due to surgery from his multiple cancers On chronic Suboxone + gabapentin Continue both GI to change his Movantik to another agent as outpatient DVT proph - heparin SC Low-normal B12 level - continue PO b12 1000mcg daily resume IV fluids change OBSERVATION status to full admission status Discharge Plan Discharge Items Patient Disposition: Home - Self-Care Reason For Visit: nausea, vomiting Discharge Diagnosis: Nausea, vomiting, stomach upset - resolved. Likely combination of multiple factors including side effects from Chantix use, reflux disease, constipation. Cannot rule out the pancreas contributing to the nausea/vomiting. 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 Call non-emergency contact if: you have any medication questions and your symptoms worsen Follow-up/Referrals: Sarah Rodríguez PA-C [Primary Care Provider] - (see Anne early this coming week for recheck and to gain clearance to return to work) Miroslava,Micheline S., SENIOR CLINICAL RESEARCH ASSOCIATE [Nurse Practitioner] - (see any GI provider at [facility] within the next 2-3 weeks for additional testing ) Diet: Low Fat Addtl Attending Provider Instructions: Mr Arechiga, You were hospitalized after having severe nausea and vomiting along with dehydration. As noted above your symptoms were likely due to a combination of factors - GI side effects from Chantix, severe reflux disease, constipation, ?pancreas problem, etc. Your CT scan of the abdomen and pelvis did not show inflammation of your pancreas, however. An x-ray of your abdomen showed a moderate amount of stool/constipation. A "cosyntropin stimulation" test was performed on 03/08 to rule out adrenal gland insufficiency as a cause of your stomach problems. This stimulation test was normal. [facility] saw you in consult and advised a low-fat diet. They will be setting you up with a "capsule endoscopy" which will examine your small intestine via a swallowed camera. They also will perform tests to look at your pancreas. Recommendations - 1. low-fat diet -- see handout 2. ondansetron tablets every 8 hours as needed for nausea/vomiting 3. [id number] vitamin B12 - 1000mcg (1mg) daily x 1 year; your vitamin B12 level was technically normal but at the lower end of normal 4. STOP the chantix 5. STOP the iron supplement Follow-up - see separate section Return to [facility] if - * you have fevers over 100 degrees * you have persistent vomiting despite taking ondansetron tablets or promethazine suppository for the vomiting * you have chest pains * you have severe abdominal pains * any other concerns It was our pleasure caring for you at [facility]! Dr Leong Pending Studies at Discharge: Yes Studies:: repeat celiac disease testing Stand-Alone Forms: [facility], Work/School Release, Smoking Cessation Medications and DC Order Prescriptions: New cyanocobalamin (vitamin B-12) 500 mcg Tablet 1,000 mcg PO QAM Qty: 90 RF: 3 ondansetron 4 mg tablet,disintegrating 4 mg PO Q8H PRN (Reason: nausea and vomiting) Qty: 10 RF: 0 Continued citalopram 20 mg tablet 20 mg PO QAM Qty: 90 RF: 3 lisinopril 20 mg tablet 20 mg PO QAM Qty: 30 RF: 11 gabapentin 300 mg capsule 300 mg PO TID PRN (Reason: Pain) Qty: 90 RF: 5 fluticasone propionate 50 mcg/actuation spray,suspension 1 - 2 spray intranasal BID Qty: 16 RF: 5 clonidine HCl 0.1 mg tablet 0.1 mg PO BID PRN (Reason: Anxiety) Qty: 60 RF: 1 cholecalciferol (vitamin D3) 1,250 mcg (50,000 unit) capsule 50,000 unit PO .COMPLEX Qty: 8 RF: 0 sennosides [senna] 8.6 mg tablet 8.6 mg PO DAILY RF: 0 dexlansoprazole 60 mg capsule,biphase delayed releas 60 mg PO DAILY Qty: 90 RF: 3 buprenorphine-naloxone 8-2 mg Tablet, Sublingual 1 tab SUBLINGUAL BID RF: 0 promethazine 25 mg suppository 25 mg ID Q6H PRN (Reason: sedation) Qty: 12 RF: 0 fluoride (sodium) [PreviDent 5000 Booster Plus] 1.1 % paste 1 applic dental HS RF: 0 polyethylene glycol 3350 [Miralax] 17 gram Powder In Packet 17 g PO DAILY Qty: 100 RF: 0 sucralfate 100 mg/mL suspension 1 g PO ACHS PRN (Reason: Acid Reflux) RF: 0 famotidine [Pepcid] 40 mg tablet 20 mg PO QPM RF: 0 Movantik 25 mg tablet 25 mg PO QAM Qty: 30 RF: 1 Discontinued varenicline 0.5 mg tablet 0.5 mg PO .COMPLEX Qty: 11 RF: 0 varenicline 1 mg tablet 1 mg PO BID Qty: 42 RF: 0 Discharge Orders: Discharge Order (Routine); Ordered 03/08/22 Ordered By: Micky Contreras/Other Patient Handouts: ED Diet, Low Fat Admission Data Admit Date/Time: 03/07/22 12:05 Attending Provider: Micky Leong Admit Provider: Leonel Wright Primary Care Provider: Sarah Rodríguez Other Providers: Leonel Wright ; Elizabeth Griffin Coding Diagnoses Abdominal pain R10.9 Elevated lipase R74.8 Hypertension I10 Hypertension type: unspecified Iron deficiency anemia D50.9 Depression F32.9 Chronic pain G89.29
[2022-03-11] MEDS ORDERED: ERGOCALCIFEROL 50,000 UNITS 1250 MCG CAP PO SCH (09:00)
== END 2022-03-08 18:40 | disposition home or self-care (01) | DRG 392 ==
LOC: ED 10:33 → 3N 10:33

== ENCOUNTER 2022-04-29 11:32 | Inpatient (IN) ==
[2022-04-29 12:19] LABS: Basophils # (auto) 0.04 K/uL (0-0.2); Basophils % (auto) 0.3 %; Eosinophils # (auto) 0.04 K/uL (0-0.5); Eosinophils % (auto) 0.3 %; Hematocrit (blood only) 48.2 % (42-52); Hemoglobin 16.6 g/dL (14.0-18.0); Immature Granulocytes # (auto) 0.07 K/uL (0.00-0.02); Immature Granulocytes % (auto) 0.5 %; Lymphocytes # (auto) 1.46 K/uL (1.2-3.4); Lymphocytes % (auto) 10.1 %; Mean Corpuscular Hemoglobin 30.1 pg (25-34); Mean Corpuscular Hgb Conc 34.4 g/dL (32-36); Mean Corpuscular Volume 87.5 fL (80-100); Mean Platelet Volume 10.3 fL (7.4-10.4); Monocytes # (auto) 0.99 K/uL (0.11-0.59); Monocytes % (auto) 6.9 %; Neutrophils # (auto) 11.81 K/uL (1.4-6.5); Neutrophils % (auto) 81.9 %; Platelet Count 292 K/uL (130-400); RDW Coefficient of Variation 16.3 % (11.5-14.5); RDW Standard Deviation 52.5 fL (36.4-46.3); Red Blood Count 5.51 M/uL (4.7-6.1); White Blood Count 14.41 K/uL (4.8-10.8)
[2022-04-29] MEDS ORDERED: ONDANSETRON INJ 2 MG/ML 2 ML VIAL ONE ×2 (12:26→12:32)
[2022-04-29] MEDS ORDERED: ASPIRIN CHEW 324 MG ONE (12:32)
[2022-04-29 12:34] LABS: Albumin Globulin Ratio 1.3 (0.9-2); Albumin Level 4.4 gm/dl (3.4-5.0); BUN Creatinine Ratio 9.7 (10-20); Bilirubin,Total 0.6 mg/dl (0.2-1.0); Creatinine Clr Calc Pharmacy 86.8 ml/min; Est GFR (African American) 104.5 ml/min; Est GFR (Non-African American) 90.2 ml/min; Globulin 3.3 gm/dl (2.5-4.0); Total Protein 7.7 gm/dl (6.0-8.3)
[2022-04-29 12:40] LABS: Troponin I High Sensitivity 4.3 pg/ml (0-20)
[2022-04-29] MEDS ORDERED: PROCHLORPERAZINE 1 ML IV ONE ×2 (12:45→14:44)
--- NOTE | 2022-04-29 12:56 | XRay Report ---
XR chest 1V portable HISTORY: 56 years-old Male cp acute atypical chest pain COMPARISON: 07/30/2021 TECHNIQUE: Portable AP view of the chest FINDINGS: The cardiomediastinal and hilar silhouettes are within normal limits. Surgical clips project over the midline chest. Mild bibasilar predominant interstitial coarsening. No pneumothorax, pleural effusion , airspace consolidation or overt pulmonary edema. Mild right hemidiaphragmatic elevation. Degenerati ve changes of the shoulders and spine. Cervical spinal fusion hardware. Prior esophageal pull-through . IMPRESSION: Mild bibasilar predominant interstitial coarsening may represent atelectasis. ACT 112: Negative or not required by law. The above report was generated using voice recognition software. It may contain grammatical, syntax o r spelling errors. Electronically signed by: Mustapha Madrid M.D. 04/29/2022 12:54 PM
--- NOTE | 2022-04-29 12:56 | Emergency Department Note ---
Impression & Plan Left-sided chest pain, Acute electrocardiogram changes Admit to the [facility] ED Provider Note NAME: ERENDIRA OTT AGE: 56 SEX: M ARRIVES VIA: Walk-In INFORMANT: Patient ED PROVIDER(S): Madisyn Raman DO CHIEF COMPLAINT: Chest pain PLAN: Disposition: Admit to the [facility] Condition: Guarded MEDICAL DECISION MAKING: This is a 56-year-old male patient who presents to the emergency department with chest pain over the past couple of days and significant nausea. The patient is a smoker and has a significant past medical history of heart disease as his father at age 52 from a heart attack. Patient describes his symptoms as intermittent and associated with shortness of breath. Patient had significant EKG changes with ST segment depression in inferior and lateral leads. Initial troponin was negative. Patient had persistent nausea while here in the emergency department and received multiple doses of IV Zofran and IV Compazine. Patient developed worsening epigastric and abdominal pain and recurrent chest pain while here in the ER. Inferior and lateral changes persisted on repeat EKG. The patient went for CTA patient to receive oral aspirin. The patient's lipase was slightly elevated. His chest and abdominal discomfort does finally subside. [facility] for [facility] management. Nursing notes reviewed and agree with them. Prior medical records reviewed Vital Signs: reviewed and unremarkable Differential diagnosis: Pancreatitis, aortic dissection, NSTEMI, STEMI, GERD ER treatment provided: Zofran x2 Baby aspirin Compazine x2 Diagnostics interpreted by me: ECG: Normal sinus rhythm at a rate of [address] segment depression in the inferior and lateral leads which is new in comparison to previous EKG. There was no ectopy there is evidence of left ventricular hypertrophy. Repeat EKG: Normal sinus rhythm at a rate of [address] segment depression in the inferior and lateral leads Cardiac Monitoring: Normal sinus rhythm at a rate of 93 Laboratory studies: See below Imaging studies: As per radiology Portable chest x-ray: See radiology report CTA chest and abdomen: See radiology report HPI: 56/M arrives for evaluation of chest pain and nausea. The patient presents to the emergency department with chest pain and nausea intermittently over the past 4 days. The patient comes in this morning because the nausea is unbearable. He also describes some shortness of breath. The patient has a strong family history of heart disease as his father had heart attack at age 52 and . The patient himself has a past medical history of hypertension for wh ich she takes medications. ROS: See above HPI for pertinent positives & negatives. A total of 10 systems reviewed and were otherwise negative. PAST MEDICAL HISTORY:See Below PAST SURGICAL HISTORY:See Below FAMILY HISTORY:See Below SOCIAL HISTORY:See Below HOME MEDICATIONS:See list ALLERGIES:None VITALS:[See Below] PHYSICAL EXAMINATION: HEENT: Head - normocephalic and atraumatic. Pupils are equal, round, and reactive to light. Extraocular eye muscles are intact, and sclera are anicteric. Nose - moist nasal mucosa without discharge. Mouth - moist buccal mucosa. Oropharynx is nonerythematous and there is no tonsillar exudate or edema noted. Neck: Supple; no JVD or cervical lymphadenopathy Heart: Regular rate and rhythm. There is a normal S1 and S2 with no murmurs, clicks, or gallops appreciated. Lungs: Clear to auscultation bilaterally with no wheezes, rales, or rhonchi. Abdomen: Soft, completely nontender, nondistended, with good bowel sounds. There are no palpable pulsatile masses or hepatosplenomegaly. There is no guarding, rigidity, or rebound noted. Extremities: No evidence of cyanosis, clubbing, or edema. There are easily palpable peripheral pulses. Skin: Méndez and diaphoretic with good turgor and no rashes. ED COURSE: Times/Reassessments: 1215: The patient was evaluated in room B6. A complete history and physical was performed. A twelve-lead EKG was obtained. An order was placed for continuous cardiac monitoring. The patient was in a normal sinus rhythm at a rate of 93. The patient was significantly nauseated and vomiting bile. He was given a dose of IV Zofran. The nausea persisted and he was given a second dose of IV Zofran. The patient was given 4 baby aspirin. A second IV lock was initiated. A portable chest x-ray was performed. The patient's nausea persisted and he was given a dose of IV Compazine. Patient's pain seemed to radiate into his epigastrium and abdomen. He went for CTA of the chest and abdomen to rule out aortic dissection. The patient continued complain of nausea and was given a second dose of IV Compazine. I reviewed the results of the laboratory studies and CT scan with the patient. I discussed the case with the [facility] Hospitalist. Madisyn Raman DO Past Med/Surg History Medical History (Updated 04/30/22 @ 20:02 by Madisyn Raman DO) Abnormal weight loss Acute dehydration 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 dx'ed with esophageal cancer in 2007 EGD in 10/2020 did show Barretts with esophagitis and ulcers - put on PPI Candidal esophagitis S/p treatment after EGD Chronic pain Elevated lipase Esophageal cancer 2007 s/p chemo and radiation Fissure, anal Pt unsure if still present- getting repeat colonoscopy in the future Fracture of multiple thoracic vertebrae 25 years ago Gastro-esophageal reflux disease with esophagitis Uncontrolled Hepatitis C [id number]-[id number] Intractable nausea and vomiting Iron deficiency anemia Lumbago Major depressive disorder Restless leg No current issues 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 Withdrawal from opioids Was on increased opioids in the past secondary to chronic back pain- weaned off pain medications- was taking herbal supplement (Kraton)= now using Suboxone to taper off supplement Surgical History H/O radical prostatectomy History of anesthesia reaction pt states he woke up during 2 EGD procedures and during shoulder sx History of colonoscopy History of cystoscopy History of esophagectomy 2007 History of esophagogastroduodenoscopy (EGD) recent 10/31/2020 History of nephrectomy, left History of repair of rotator cuff right and left shoulder History of right knee surgery meniscectomy Hx laparoscopic cholecystectomy Status post surgery neck surgery with hardware Family History Father Hypertension Myocardial infarction Coronary heart disease Mother Cancer Skin and Lung Brother Hypertension Other No family history of adverse response to anesthesia Denies family history of Ovarian cancer Prostate cancer Breast cancer Colorectal cancer Social History (Updated 04/29/22 @ 16:26 by Selene Oseguera MD) Smoking Status: Never smoker Tobacco Type: Cigarettes Years Smoked: 10; Second Hand Exposure: No; Hx Alcohol Use: No Hx Substance Use: No Preferred Language: Albanian Communication Ability: Effective Visual Impairment: No Limitations Hearing Ability: Normal Ent Surgeon Required: No Beliefs That Will Affect Care: None marital status: Current Living Situation: Spouse current occupational status: employed 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 Feels Safe at Home: Yes Childhood Exposure to Second-Hand Smoke: Yes caffeine: Yes Dental Care, Regularly: Yes Physical Activity Frequency: Daily Seatbelt Use: always Sunscreen Use: No Assistive Devices: None Allergies Allergies Allergy/AdvReac Type Severity Reaction Status Date / Time No Known Allergies Allergy Verified 04/29/22 15:05 Home Meds Home Medications Medication Instructions Recorded Confirmed buprenorphine 8 mg-naloxone 2 mg 1 tab SUBLINGUAL BID 01/09/21 04/29/22 sublingual tablet fluoride (sodium) 1.1 % dental 1 applic DENTAL HS 04/13/21 04/29/22 paste (PreviDent 5000 Booster Plus) famotidine 40 mg tablet (Pepcid) 20 mg PO QPM 11/27/21 04/29/22 sucralfate 100 mg/mL oral 1 g PO ACHS PRN 11/27/21 04/29/22 suspension sennosides 8.6 mg tablet (senna) 8.6 mg PO DAILY 12/03/21 04/29/22 Previous Rx's Medication Instructions Recorded polyethylene glycol 3350 17 gram 17 g PO DAILY #100 ea 07/07/21 oral powder packet (Miralax) citalopram 20 mg tablet 20 mg PO QAM #90 tab 07/12/21 dexlansoprazole 60 mg 60 mg PO DAILY #90 cap 09/19/21 capsule,biphase delayed release lisinopril 20 mg tablet 20 mg PO QAM #30 tab 10/01/21 naloxegol 25 mg tablet (Movantik) 25 mg PO QAM #30 tab 12/01/21 promethazine 25 mg rectal 25 mg MI Q6H PRN #12 ea 12/30/21 suppository fluticasone propionate 50 1 - 2 spray INTRANASAL BID #16 g 01/14/22 mcg/actuation nasal spray,suspension cyanocobalamin (vitamin B-12) 500 1,000 mcg PO QAM #90 tab 03/08/22 mcg tablet ondansetron 4 mg disintegrating 4 mg PO Q8H PRN #10 tab 03/08/22 tablet clonidine HCl 0.1 mg tablet 0.1 mg PO BID PRN #60 tab 04/10/22 gabapentin 300 mg capsule 600 mg PO TID PRN #180 cap 04/15/22 prednisone 10 mg tablet 10 mg PO .COMPLEX #42 tab 04/15/22 cholecalciferol (vitamin D3) 25 25 mcg PO DAILY #30 cap 04/22/22 mcg (1,000 unit) capsule Results & Data (ED) Vital Signs Vital Signs - 24 hr 04/29/22 11:35 04/29/22 11:40 Pulse Rate 93 H Pulse Rhythm Regular Pulse Strength Normal Respiratory Rate 20 Respiratory Effort / Characteristics Non-Labored Spontaneous Respiratory Depth Normal Respiratory Pattern Regular Blood Pressure 149/92 H Blood Pressure Mean 111 Blood Pressure Position Sitting Pulse Oximetry 100 Oxygen Delivery Method Room Air Room Air Sepsis Recent Fever Within 48 Hours No Sepsis New/Unexplained Change in Mental Status No Sepsis Action Taken by Nursing No Action Required Laboratory Data Result diagrams: 04/30/22 05:37 04/30/22 05:37 Lab Results 04/29/22 04/29/22 04/29/22 Range/Units 11:55 11:55 11:55 WBC 14.41 H (4.8-10.8) K/uL RBC 5.51 (4.7-6.1) M/uL Hgb 16.6 (14.0-18.0) g/dL Hct 48.2 (42-52) % MCV 87.5 (80-100) fL MCH 30.1 (25-34) pg MCHC 34.4 (32-36) g/dL RDW Std Deviation 52.5 H (36.4-46.3) fL RDW Coeff of Dorothy 16.3 H (11.5-14.5) % Plt Count 292 (130-400) K/uL MPV 10.3 (7.4-10.4) fL Immature Gran % (Auto) 0.5 % Neut % (Auto) 81.9 % Lymph % (Auto) 10.1 % [place] % (Auto) 6.9 % Eos % (Auto) 0.3 % Baso % (Auto) 0.3 % Neut # (Auto) 11.81 H (1.4-6.5) K/uL Lymph # (Auto) 1.46 (1.2-3.4) K/uL [place] # (Auto) 0.99 H (0.11-0.59) K/uL Eos # (Auto) 0.04 (0-0.5) K/uL Baso # (Auto) 0.04 (0-0.2) K/uL Immature Gran # (Auto) 0.07 H (0.00-0.02) K/uL PT (9.0-12.0) Seconds INR (0.9-1.1) D-Dimer (0-500) ug/L FEU Sodium 138 (136-145) mmol/L Potassium 4.0 (3.5-5.1) mmol/L Chloride 102 (98-107) mmol/L Carbon Dioxide 24 (21-32) mmol/L Anion Gap 12 H (3-11) BUN 9 (6-23) mg/dl Creatinine 0.93 (0.6-1.4) mg/dl Est Cr Clr Drug Dosing 86.8 ml/min Est GFR ( Amer) 104.5 ml/min Est GFR (Non-Af Amer) 90.2 ml/min BUN/Creatinine Ratio 9.7 L (10-20) Glucose 154 H (70-99(Fasting)) mg/dl Calcium 10.0 (8.5-10.1) mg/dl Total Bilirubin 0.6 (0.2-1.0) mg/dl AST 26 (13-39) U/L ALT 31 (7-52) U/L Alkaline Phosphatase 82 (34-104) U/L Troponin I High Sens 4.3 (0-20) pg/ml Total Protein 7.7 (6.0-8.3) gm/dl Albumin 4.4 (3.4-5.0) gm/dl Globulin 3.3 (2.5-4.0) gm/dl Albumin/Globulin Ratio 1.3 (0.9-2) Lipase 246 H (11-82) U/L SARS-CoV-2, RNA, NAAT (NEGATIVE) 04/29/22 04/29/22 Range/Units 12:50 13:10 WBC (4.8-10.8) K/uL RBC (4.7-6.1) M/uL Hgb (14.0-18.0) g/dL Hct (42-52) % MCV (80-100) fL MCH (25-34) pg MCHC (32-36) g/dL RDW Std Deviation (36.4-46.3) fL RDW Coeff of Dorothy (11.5-14.5) % Plt Count (130-400) K/uL MPV (7.4-10.4) fL Immature Gran % (Auto) % Neut % (Auto) % Lymph % (Auto) % [place] % (Auto) % Eos % (Auto) % Baso % (Auto) % Neut # (Auto) (1.4-6.5) K/uL Lymph # (Auto) (1.2-3.4) K/uL [place] # (Auto) (0.11-0.59) K/uL Eos # (Auto) (0-0.5) K/uL Baso # (Auto) (0-0.2) K/uL Immature Gran # (Auto) (0.00-0.02) K/uL PT 11.1 (9.0-12.0) Seconds INR 1.0 (0.9-1.1) D-Dimer 830 H* (0-500) ug/L FEU Sodium (136-145) mmol/L Potassium (3.5-5.1) mmol/L Chloride (98-107) mmol/L Carbon Dioxide (21-32) mmol/L Anion Gap (3-11) BUN (6-23) mg/dl Creatinine (0.6-1.4) mg/dl Est Cr Clr Drug Dosing ml/min Est GFR ( Amer) ml/min Est GFR (Non-Af Amer) ml/min BUN/Creatinine Ratio (10-20) Glucose (70-99(Fasting)) mg/dl Calcium (8.5-10.1) mg/dl Total Bilirubin (0.2-1.0) mg/dl AST (13-39) U/L ALT (7-52) U/L Alkaline Phosphatase (34-104) U/L Troponin I High Sens (0-20) pg/ml Total Protein (6.0-8.3) gm/dl Albumin (3.4-5.0) gm/dl Globulin (2.5-4.0) gm/dl Albumin/Globulin Ratio (0.9-2) Lipase (11-82) U/L SARS-CoV-2, RNA, NAAT NEGATIVE (NEGATIVE) Administered Medications Aspirin (Aspirin 81 Mg Ectab) 81 mg PO QAM YANETH Stop: 08/04/22 08:59 Last Admin: 04/30/22 10:08 Dose: 81 mg Documented by: [id number] Buprenorphine/Naloxone (Buprenorphine/Naloxone 8/2 Mg Tab) 1 tab SL BID [facility] Stop: 05/29/22 20:59 Last Admin: 04/30/22 10:11 Dose: 1 tab Documented by: [id number] Admin: 04/29/22 20:15 Dose: 1 tab Documented by: [id number] Citalopram Hydrobromide (Citalopram 20 Mg Tab) 20 mg PO QAM [facility] Stop: 05/30/22 08:59 Last Admin: 04/30/22 10:08 Dose: 20 mg Documented by: [id number] Enoxaparin Sodium (Enoxaparin Inj 40 Mg/0.4 Ml Syr) 40 mg SQ Q24H [facility] Stop: 05/29/22 17:41 Last Admin: 04/29/22 20:15 Dose: 40 mg Documented by: [id number] Fluticasone Propionate (Fluticasone Propionate Na Spr 16 Gm Btl) 2 sprays SOLA BID [facility] Stop: 05/29/22 20:59 Last Admin: 04/30/22 10:08 Dose: 2 sprays Documented by: [id number] Admin: 04/29/22 20:16 Dose: 2 sprays Documented by: [id number] Gabapentin (Gabapentin 600 Mg Tab) 600 mg PO TID [facility] Stop: 05/29/22 20:59 Last Admin: 04/30/22 14:04 Dose: 600 mg Documented by: [id number] Admin: 04/30/22 10:09 Dose: 600 mg Documented by: [id number] Admin: 04/29/22 20:16 Dose: 600 mg Documented by: [id number] Prochlorperazine 10 mg/ (Syringe) 10 mls @ 5 mls/min IV Q6H PRN PRN Reason: Nausea And Vomiting Stop: 05/29/22 17:41 Last Admin: 04/29/22 21:27 Dose: 5 mls/min Documented by: [id number] Famotidine 20 mg/ Syringe 5 mls @ 2.5 mls/min IV BID [facility] Stop: 05/29/22 20:59 Last Admin: 04/30/22 10:11 Dose: 2.5 mls/min Documented by: [id number] Admin: 04/29/22 20:15 Dose: 2.5 mls/min Documented by: [id number] Pantoprazole Sodium 40 mg/ (Syringe) 10 mls @ 5 mls/min IV BID [facility] Stop: 05/29/22 20:59 Last Admin: 04/30/22 10:08 Dose: 5 mls/min Documented by: [id number] Admin: 04/29/22 20:15 Dose: 5 mls/min Documented by: [id number] Lisinopril (Lisinopril 20 Mg Tab) 20 mg PO QAM [facility] Stop: 05/30/22 08:59 Last Admin: 04/30/22 10:09 Dose: 20 mg Documented by: [id number] Miscellaneous (Movantik- Order Awaiting Action) 1 ea N/A QS [facility] Stop: 05/30/22 00:00 Last Admin: 04/30/22 16:22 Dose: Not Given Documented by: [id number] Admin: 04/30/22 10:08 Dose: Not Given Documented by: [id number] Admin: 04/30/22 00:10 Dose: Not Given Documented by: [id number] Ondansetron HCl (Ondansetron Inj 2 Mg/Ml 2 Ml Vial) 4 mg IV Q6H PRN PRN Reason: Nausea And Vomiting Stop: 05/29/22 17:41 Last Admin: 04/29/22 18:28 Dose: 4 mg Documented by: [id number] Polyethylene Glycol (Polyethylene (Miralax) 17 Gm Pack) 17 gm PO DAILY [facility] Stop: 05/30/22 08:59 Last Admin: 04/30/22 10:09 Dose: Not Given Documented by: [id number] Sennosides (Senna 8.6 Mg Tab) 8.6 mg PO DAILY [facility] Stop: 05/30/22 08:59 Last Admin: 04/30/22 10:10 Dose: Not Given Documented by: [id number] Discontinued Medications Aspirin (Aspirin Chew 324 Mg) Confirm Administered Dose 324 mg .ROUTE .STK-MED ONE Stop: 04/29/22 12:33 Last Admin: 04/29/22 13:10 Dose: 324 mg Documented by: [id number] Prochlorperazine (Compazine) 1 mls @ 1 mls/min IV ONE ONE Stop: 04/29/22 12:46 Last Admin: 04/29/22 12:50 Dose: 1 mls/min Documented by: [id number] Prochlorperazine (Compazine) 1 mls @ 1 mls/min IV ONE ONE Stop: 04/29/22 14:45 Last Admin: 04/29/22 14:50 Dose: 1 mls/min Documented by: [id number] Lactated Ringer's (Lr) 1,000 mls @ 100 mls/hr IV .Q10H YANETH Stop: 05/29/22 17:41 Last Admin: 04/30/22 16:22 Dose: 100 mls/hr Documented by: [id number] Infusion: 04/30/22 14:02 Dose: 100 mls/hr Documented by: [id number] Admin: 04/30/22 04:02 Dose: 100 mls/hr Documented by: [id number] Infusion: 04/30/22 04:02 Dose: 100 mls/hr Documented by: [id number] Admin: 04/29/22 18:29 Dose: 100 mls/hr Documented by: [id number] Ioversol (Optiray 320 125ml) 120 ml IV ONCE ONE Stop: 04/29/22 14:18 Last Admin: 04/29/22 14:17 Dose: 120 ml Documented by: [id number] Morphine Sulfate (Morphine Sulfate 2 Mg/Ml Carp) 2 mg IV Q30M PRN PRN Reason: Chest Pain Stop: 05/13/22 17:41 Last Admin: 04/30/22 10:07 Dose: 2 mg Documented by: [id number] Admin: 04/29/22 21:27 Dose: 2 mg Documented by: [id number] Admin: 04/29/22 20:20 Dose: 2 mg Documented by: [id number] Admin: 04/29/22 19:24 Dose: 2 mg Documented by: [id number] Admin: 04/29/22 18:28 Dose: 2 mg Documented by: [id number] Ondansetron HCl (Ondansetron Inj 2 Mg/Ml 2 Ml Vial) Confirm Administered Dose 4 mg .ROUTE .STK-MED ONE Stop: 04/29/22 12:27 Last Admin: 04/29/22 12:36 Dose: 4 mg Documented by: [id number] Ondansetron HCl (Ondansetron Inj 2 Mg/Ml 2 Ml Vial) Confirm Administered Dose 4 mg .ROUTE .STK-MED ONE Stop: 04/29/22 12:33 Last Admin: 04/29/22 12:45 Dose: 4 mg Documented by: [id number] Discharge Plan Visit Data Chief Complaint: Chest Pain Stated Complaint: ABDOMINAL PAIN ED Provider: Madisyn Raman Discharge Problem: Left-sided chest pain, Acute electrocardiogram changes Patient Disposition: Admitted As Inpatient Discharge Instructions Interventions: ED Discharge Assessment Last Done: 04/29/22 17:14
[2022-04-29 13:41] LABS: Prothrombin Time 11.1 Seconds (9.0-12.0)
[2022-04-29 13:58] LABS: D Dimer 830 ug/L FEU (0-500)
[2022-04-29] MEDS ORDERED: OPTIRAY 320 125ml IV ONE (14:17)
--- NOTE | 2022-04-29 15:01 | CT Scan Report ---
CT angio chest dissec wo/w con, CT angio abdomen pelvis w con HISTORY: 56 years-old Male eval dissection acute chest and abdominal pain. Prior esophageal resectio n with gastric pull-through. Suspicious left renal mass. Prior prostatectomy. COMPARISON: CT abdomen and pelvis 03/05/2022, CTA chest 07/05/2021 TECHNIQUE: CTA chest, abdomen and pelvis is obtained following the intravenous ministration of 120 mL Optiray [address]. Noncontrast CT images of the chest were also obtained. All measurements were obtained a ccording to NASCET criteria. A dose lowering technique was used consistent with the principals of DEREK HONG. FINDINGS: CTA CHEST: The heart is upper limits of normal in size. There is no thoracic aortic aneurysm or dissection. No intramural or mediastinal hematoma. Patency of the imaged great vessels. Unremarkable pulmonary arter y. CT CHEST: Unremarkable thyroid. There is no lymphadenopathy of the chest identified. Prior esophagectomy with g astric pull-through. There is mild right hemidiaphragmatic elevation. There is no pneumothorax, pleur al effusion, airspace consolidation or overt pulmonary edema. There are no suspicious pulmonary nodul es or masses identified. There is mild subsegmental atelectasis/scarring of the right lung base. Ther e are 2 subadjacent solid nodules of the left upper lobe measuring up to 2-3 mm which are stable and likely benign. Unremarkable soft tissues. Cervical spinal fusion hardware. Healed chronic appearing l eft-sided rib fractures. Mild levoscoliosis of the midthoracic spine. CTA ABDOMEN/PELVIS: There is no abdominal aortic aneurysm or dissection. There is mild atherosclerosis of the abdominal a kimber and iliac bifurcation. The celiac trunk demonstrates mild less than 50% stenosis. The renal, sup erior and inferior mesenteric arteries are widely patent. The iliac and imaged femoral arteries are w ithin normal limits. No retroperitoneal hematoma. CT ABDOMEN/PELVIS: No pneumatosis or pneumoperitoneum. Study is degraded by respiratory motion artifact. Unremarkable sp pricila, mildly atrophic pancreas and right adrenal gland. There is mild thickening of the left adrenal gland. Cholecystectomy. Unremarkable liver. Homogeneous enhancement of the kidneys. Left partial neph rectomy. Urinary bladder wall thickening with partial distention. Prostatectomy. There is no lymphade nopathy identified. No bowel obstruction. Mild thickening of the rectosigmoid is likely secondary to partial distention. Normal appendix. No ascites or mesenteric inflammation. Tiny fat filled periumbilical hernia. Degener ative changes of the spine, pelvis and hips. No acute fracture identified. Unchanged sclerotic focus of the left iliac bone is likely benign. IMPRESSION: 1. CTA of the chest, abdomen and pelvis demonstrates no aneurysm, dissection, high-grade stenosis or arterial occlusion. 2. No acute intrathoracic, intra-abdominal or intrapelvic abnormality. 3. Prior esophagectomy with gastric pull-through. Prior left partial nephrectomy with cholecystectomy and prostatectomy. 4. Nonspecific urinary bladder wall thickening. Correlate with urinalysis. 5. Additional findings as above. ACT 112: Negative or not required by law. The above report was generated using voice recognition software. It may contain grammatical, syntax o r spelling errors. Electronically signed by: Mustapha Madrid M.D. 04/29/2022 2:59 PM
--- NOTE | 2022-04-29 16:18 | History & Physical Report ---
Date of Service April 29, 2022 Assessment & Plan (1) Chest pain: Plan: Patient with 4 days of intermittent left-sided chest wall pain that seems musculoskeletal in nature. Initial troponin negative, however ECG with new ST depressions in inferior and lateral leads but could be LVH with repolarization Certainly somewhat atypical in nature. He does have risk factors for CAD to include history of smoking. CT angiogram chest/abdomen/pelvis negative for acute disease. It could be related to his ongoing nausea/vomiting. -Admit to telemetry unit for arrhythmia monitoring -Check echocardiogram -Trend serial troponin and ECG -Consult cardiology -Was given aspirin in the ER-we will continue aspirin 81 mg p.o. once daily for now -Check lipid panel in the morning (2) Nausea & vomiting: Plan: With ongoing nausea/vomiting since the morning of admission, with a history of such in the past Has had EGD and colonoscopy within the last few months, also had EUS given elevated lipase in the past which was reportedly normal as per GI notes Somewhat improved after 8 mg of IV Zofran and 10 mg of Compazine in the ER Lipase is mildly elevated but he has had elevations of lipase previously with negative work-up as above.Could be reactive to vomiting CT abdomen/Pelvis negative for obstruction, but he is at risk for this given history of intra-abdominal surgery -Keep n.p.o. except for ice chips and sips for now -Continue IV Compazine and Zofran as needed -Convert home PPI and Pepcid to IV -Follow CBC, CMP, lipase in the morning (3) Gastro-esophageal reflux disease with esophagitis: Plan: Convert home p.o. PPI and Pepcid to IV for now (4) Elevated lipase: Plan: As above (5) Chronic constipation: Plan: Continue home Movantik, senna, docusate, MiraLAX Had a bowel movement on 04/29 (6) Anemia: Plan: Currently a bit hemoconcentrated with hemoglobin at 16 which is higher than his baseline Receives IV iron infusions occasionally through oncology Follow CBC (7) Cervical disc disease: Plan: Chronic ongoing issue with a history of cervical spine discectomy and fusion previously Just recently finished a burst of 10 days of prednisone which helped His left chest wall pain could actually be part of a cervical radiculopathy Continue Suboxone, ordered IV morphine as needed for severe breakthrough pain, continue Tylenol as needed (8) Chronic pain: Plan: Continue home Suboxone (9) History of esophageal cancer: (10) Major depressive disorder: Plan: Stable at this time, no acute issues Continue home Celexa Plan: DVT prophylaxis-SCDs, SQ Lovenox Disposition-admit to telemetry unit Full code History of Present Illness Chief Complaint: Chest pain, nausea Primary Care Provider: Sarah Rodríguez PA-C This patient is a 56-year-old male with a history of esophageal cancer and esophagectomy, prostate cancer, renal cell carcinoma, chronic neck and abdominal pain, GERD, chronic constipation, HTN, iron deficiency anemia, depression, who presents to the ER with chest pain and nausea/vomiting. He reports he has been having pains around the left side of his chest coming and going even at rest that feel like a muscle strain, worse with movement of the arms for the last 4 days. It was not associated with shortness of breath but was worsened by cough. He has been having some postnasal drip causing him to cough. This morning around 630, he began having intractable nausea and vomiting that was nonbloody. He reports subjective fevers at home but did not check his temperature. He does have a history of chronic constipation and recurrent nausea/vomiting in the past as per GI records, but he reports a bowel movement today as well as yesterday- both were nonbloody and no melena. In the ER, he vomited and then his abdominal pain got much worse and he became diaphoretic and pale. There was concern for dissection and he was sent for a CT angiogram of the chest/abdomen/pelvis which was negative for such. His ECG did show ST depressions inferior and laterally versus LVH with repolarization abnormality-this was changed from previous ECGs. After the CT scan, his acute abdominal pain did improve and his chest pain is resolved at the time I saw him. D-dimer is elevated at 830, initial troponin was negative, WBC count slightly elevated at 14 but he did just finish a prednisone taper for neck pain which did help. Lipase also mildly elevated and has been in the past with normal EUS with GI in 01/2022. Chemistry was otherwise fairly unremarkable, LFTs normal, and COVID-19 was negative. In the ER, he was given 2 doses of Compazine, 2 doses of Zofran, and aspirin 324 mg p.o. x1. His nausea is now improved with such. He will be admitted for chest pain and abnormal ECG to rule out acute coronary syndrome. Allergies Allergy/AdvReac Type Severity Reaction Status Date / Time No Known Allergies Allergy Verified 04/29/22 15:05 Home Medications Medication Instructions Recorded Confirmed Type buprenorphine 8 mg-naloxone 2 mg 1 tab SUBLINGUAL BID 01/09/21 04/29/22 History sublingual tablet fluoride (sodium) 1.1 % dental 1 applic DENTAL HS 04/13/21 04/29/22 History paste (PreviDent 5000 Booster Plus) polyethylene glycol 3350 17 gram 17 g PO DAILY #100 ea 07/07/21 04/29/22 Rx oral powder packet (Miralax) citalopram 20 mg tablet 20 mg PO QAM #90 tab 07/12/21 04/29/22 Rx dexlansoprazole 60 mg 60 mg PO DAILY #90 cap 09/19/21 04/29/22 Rx capsule,biphase delayed release lisinopril 20 mg tablet 20 mg PO QAM #30 tab 10/01/21 04/29/22 Rx famotidine 40 mg tablet (Pepcid) 20 mg PO QPM 11/27/21 04/29/22 History sucralfate 100 mg/mL oral 1 g PO ACHS PRN 11/27/21 04/29/22 History suspension naloxegol 25 mg tablet (Movantik) 25 mg PO QAM #30 tab 12/01/21 04/29/22 Rx sennosides 8.6 mg tablet (senna) 8.6 mg PO DAILY 12/03/21 04/29/22 History promethazine 25 mg rectal 25 mg OR Q6H PRN #12 ea 12/30/21 04/29/22 Rx suppository fluticasone propionate 50 1 - 2 spray INTRANASAL BID #16 g 01/14/22 04/29/22 Rx mcg/actuation nasal spray,suspension cyanocobalamin (vitamin B-12) 500 1,000 mcg PO QAM #90 tab 03/08/22 04/29/22 Rx mcg tablet ondansetron 4 mg disintegrating 4 mg PO Q8H PRN #10 tab 03/08/22 04/29/22 Rx tablet clonidine HCl 0.1 mg tablet 0.1 mg PO BID PRN #60 tab 04/10/22 04/29/22 Rx gabapentin 300 mg capsule 600 mg PO TID PRN #180 cap 04/15/22 04/29/22 Rx prednisone 10 mg tablet 10 mg PO .COMPLEX #42 tab 04/15/22 04/29/22 Rx cholecalciferol (vitamin D3) 25 25 mcg PO DAILY #30 cap 04/22/22 04/29/22 Rx mcg (1,000 unit) capsule Past Med/Surg History Medical History (Updated 04/29/22 @ 17:44 by Selene Oseguera MD) Abnormal weight loss Acute dehydration 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 dx'ed with esophageal cancer in 2007 EGD in 10/2020 did show Barretts with esophagitis and ulcers - put on PPI Candidal esophagitis S/p treatment after EGD Chronic pain Elevated lipase Esophageal cancer 2007 s/p chemo and radiation Fissure, anal Pt unsure if still present- getting repeat colonoscopy in the future Fracture of multiple thoracic vertebrae 25 years ago Gastro-esophageal reflux disease with esophagitis Uncontrolled Hepatitis C [id number] Intractable nausea and vomiting Iron deficiency anemia Lumbago Major depressive disorder Restless leg No current issues 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 Withdrawal from opioids Was on increased opioids in the past secondary to chronic back pain- weaned off pain medications- was taking herbal supplement ([place])= now using Suboxone to taper off supplement Surgical History H/O radical prostatectomy History of anesthesia reaction pt states he woke up during 2 EGD procedures and during shoulder sx History of colonoscopy History of cystoscopy History of esophagectomy 2007 History of esophagogastroduodenoscopy (EGD) recent 10/31/2020 History of nephrectomy, left History of repair of rotator cuff right and left shoulder History of right knee surgery meniscectomy Hx laparoscopic cholecystectomy Status post surgery neck surgery with hardware Family History Father Hypertension Myocardial infarction Coronary heart disease Mother Cancer Skin and Lung Brother Hypertension Other No family history of adverse response to anesthesia Denies family history of Ovarian cancer Prostate cancer Breast cancer Colorectal cancer Social History (Updated 04/29/22 @ 16:26 by Selene Oseguera MD) Smoking Status: Former smoker Tobacco Type: Cigarettes Years Smoked: 10; Second Hand Exposure: No; Hx Alcohol Use: No Hx Substance Use: Yes Substance Use Type Other:: Suboxone Preferred Language: Upper Sorbian Communication Ability: Effective Visual Impairment: No Limitations Hearing Ability: Normal Assembler Utility Buildings Required: No Beliefs That Will Affect Care: None marital status: Current Living Situation: Spouse current occupational status: employed 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 Feels Safe at Home: Yes Childhood Exposure to Second-Hand Smoke: Yes caffeine: Yes Dental Care, Regularly: Yes Physical Activity Frequency: Daily Seatbelt Use: always Sunscreen Use: No Assistive Devices: None Review of Systems Review of Systems: All systems reviewed & are unremarkable except as noted in HPI & below Physical Exam Constitutional: WD/WN, vitals as above Eyes: PERRL, conjunctivae normal, anicteric sclerae ENMT: external ear and nose normal, oropharynx normal Neck: trachea midline, no thyromegaly Respiratory: normal respiratory effort, lungs clear to auscultation Cardiovascular: RRR, no murmur, no edema Chest (Breasts): Chest: normal inspection of chest Additional Comments: Positive tenderness to palpation over left pectoralis muscle Gastrointestinal (Abdomen): normal bowel sounds, soft, nontender, no hepatosplenomegaly Musculoskeletal: Extremities: extremities normal to inspection; no cyanosis and no clubbing Skin: no rashes, warm and dry Neurologic: moves all extremities and awake; no focal motor deficits Psychiatric: Orientation: alert, oriented x 3 and cooperative Affect: + flat affect Lymphatic: no lymphedema Results & Data Results & Data ([facility]) Vital Signs (Past 12 Hours) Vital Signs Pulse Resp BP Pulse Ox 04/29/22 15:00 90 19 146/86 H 04/29/22 14:30 82 19 126/70 97 04/29/22 14:05 93 H 20 165/93 H 04/29/22 14:04 91 H 18 04/29/22 13:00 89 97 04/29/22 12:30 79 15 04/29/22 12:28 85 13 143/111 H 04/29/22 12:02 97 H 17 04/29/22 11:46 86 17 04/29/22 11:35 93 H 20 149/92 H 100 Laboratory Results 07/04/22 07/04/22 07/04/22 Range/Units 13:10 12:50 11:55 WBC (4.8-10.8) K/uL RBC (4.7-6.1) M/uL Hgb (14.0-18.0) g/dL Hct (42-52) % MCV (80-100) fL MCH (25-34) pg MCHC (32-36) g/dL RDW Std Deviation (36.4-46.3) fL RDW Coeff of Dorothy (11.5-14.5) % Plt Count (130-400) K/uL MPV (7.4-10.4) fL Immature Gran % (Auto) % Neut % (Auto) % Lymph % (Auto) % [place] % (Auto) % Eos % (Auto) % Baso % (Auto) % Neut # (Auto) (1.4-6.5) K/uL Lymph # (Auto) (1.2-3.4) K/uL [place] # (Auto) (0.11-0.59) K/uL Eos # (Auto) (0-0.5) K/uL Baso # (Auto) (0-0.2) K/uL Immature Gran # (Auto) (0.00-0.02) K/uL PT 11.1 (9.0-12.0) Seconds INR 1.0 (0.9-1.1) D-Dimer 830 H* (0-500) ug/L FEU Sodium (136-145) mmol/L Potassium (3.5-5.1) mmol/L Chloride (98-107) mmol/L Carbon Dioxide (21-32) mmol/L Anion Gap (3-11) BUN (6-23) mg/dl Creatinine (0.6-1.4) mg/dl Est Cr Clr Drug Dosing ml/min Est GFR ( Amer) ml/min Est GFR (Non-Af Amer) ml/min BUN/Creatinine Ratio (10-20) Glucose (70-99(Fasting)) mg/dl Calcium (8.5-10.1) mg/dl Total Bilirubin (0.2-1.0) mg/dl AST (13-39) U/L ALT (7-52) U/L Alkaline Phosphatase (34-104) U/L Troponin I High Sens (0-20) pg/ml Total Protein (6.0-8.3) gm/dl Albumin (3.4-5.0) gm/dl Globulin (2.5-4.0) gm/dl Albumin/Globulin Ratio (0.9-2) Lipase 246 H (11-82) U/L SARS-CoV-2, RNA, NAAT NEGATIVE (NEGATIVE) 04/29/22 04/29/22 Range/Units 11:55 11:55 WBC 14.41 H (4.8-10.8) K/uL RBC 5.51 (4.7-6.1) M/uL Hgb 16.6 (14.0-18.0) g/dL Hct 48.2 (42-52) % MCV 87.5 (80-100) fL MCH 30.1 (25-34) pg MCHC 34.4 (32-36) g/dL RDW Std Deviation 52.5 H (36.4-46.3) fL RDW Coeff of Dorothy 16.3 H (11.5-14.5) % Plt Count 292 (130-400) K/uL MPV 10.3 (7.4-10.4) fL Immature Gran % (Auto) 0.5 % Neut % (Auto) 81.9 % Lymph % (Auto) 10.1 % [place] % (Auto) 6.9 % Eos % (Auto) 0.3 % Baso % (Auto) 0.3 % Neut # (Auto) 11.81 H (1.4-6.5) K/uL Lymph # (Auto) 1.46 (1.2-3.4) K/uL [place] # (Auto) 0.99 H (0.11-0.59) K/uL Eos # (Auto) 0.04 (0-0.5) K/uL Baso # (Auto) 0.04 (0-0.2) K/uL Immature Gran # (Auto) 0.07 H (0.00-0.02) K/uL PT (9.0-12.0) Seconds INR (0.9-1.1) D-Dimer (0-500) ug/L FEU Sodium 138 (136-145) mmol/L Potassium 4.0 (3.5-5.1) mmol/L Chloride 102 (98-107) mmol/L Carbon Dioxide 24 (21-32) mmol/L Anion Gap 12 H (3-11) BUN 9 (6-23) mg/dl Creatinine 0.93 (0.6-1.4) mg/dl Est Cr Clr Drug Dosing 86.8 ml/min Est GFR ( Amer) 104.5 ml/min Est GFR (Non-Af Amer) 90.2 ml/min BUN/Creatinine Ratio 9.7 L (10-20) Glucose 154 H (70-99(Fasting)) mg/dl Calcium 10.0 (8.5-10.1) mg/dl Total Bilirubin 0.6 (0.2-1.0) mg/dl AST 26 (13-39) U/L ALT 31 (7-52) U/L Alkaline Phosphatase 82 (34-104) U/L Troponin I High Sens 4.3 (0-20) pg/ml Total Protein 7.7 (6.0-8.3) gm/dl Albumin 4.4 (3.4-5.0) gm/dl Globulin 3.3 (2.5-4.0) gm/dl Albumin/Globulin Ratio 1.3 (0.9-2) Lipase (11-82) U/L SARS-CoV-2, RNA, NAAT (NEGATIVE) Diagnostic Findings Chest X-Ray 04/29/22 12:33 XR chest 1V portable HISTORY: 56 years-old Male cp acute atypical chest pain COMPARISON: 07/30/2021 TECHNIQUE: Portable AP view of the chest FINDINGS: The cardiomediastinal and hilar silhouettes are within normal limits. Surgical clips project over the midline chest. Mild bibasilar predominant interstitial coarsening. No pneumothorax, pleural effusion, airspace consolidation or overt pulmonary edema. Mild right hemidiaphragmatic elevation. Degenerative changes of the shoulders and spine. Cervical spinal fusion hardware. Prior esophageal pull- through. IMPRESSION: Mild bibasilar predominant interstitial coarsening may represent atelectasis. ACT 112: Negative or not required by law. The above report was generated using voice recognition software. It may contain grammatical, syntax or spelling errors. Electronically signed by: Mustapha Madrid M.D. 04/29/2022 12:54 PM Abdomen/Pelvis CTA 04/29/22 13:16 CT angio chest dissec wo/w con, CT angio abdomen pelvis w con HISTORY: 56 years-old Male eval dissection acute chest and abdominal pain. Prior esophageal resection with gastric pull-through. Suspicious left renal mass. Prior prostatectomy. COMPARISON: CT abdomen and pelvis 03/05/2022, CTA chest 07/05/2021 TECHNIQUE: CTA chest, abdomen and pelvis is obtained following the intravenous ministration of 120 mL Optiray 320. Non[address] CT images of the chest were also obtained. All measurements were obtained according to NASCET criteria. A dose lowering technique was used consistent with the principals of MARLON. FINDINGS: CTA CHEST: The heart is upper limits of normal in size. There is no thoracic aortic aneurysm or dissection. No intramural or mediastinal hematoma. Patency of the imaged great vessels. Unremarkable pulmonary artery. CT CHEST: Unremarkable thyroid. There is no lymphadenopathy of the chest identified. Prior esophagectomy with gastric pull-through. There is mild right hemidiaphragmatic elevation. There is no pneumothorax, pleural effusion, airspace consolidation or overt pulmonary edema. There are no suspicious pulmonary nodules or masses moustapha ntified. There is mild subsegmental atelectasis/scarring of the right lung base. There are 2 subadjacent solid nodules of the left upper lobe measuring up to 2-3 mm which are stable and likely benign. Unremarkable soft tissues. Cervical spinal fusion hardware. Healed chronic appearing left-sided rib fractures. Mild levoscoliosis of the midthoracic spine. CTA ABDOMEN/PELVIS: There is no abdominal aortic aneurysm or dissection. There is mild atherosclerosis of the abdominal aorta and iliac bifurcation. The celiac trunk demonstrates mild less than 50% stenosis. The renal, superior and inferior mesenteric arteries are widely patent. The iliac and imaged femoral arteries are within normal limits. No retroperitoneal hematoma. CT ABDOMEN/PELVIS: No pneumatosis or pneumoperitoneum. Study is degraded by respiratory motion artifact. Unremarkable spleen, mildly atrophic pancreas and right adrenal gland. There is mild thickening of the left adrenal gland. Cholecystectomy. Unremarkable liver. Homogeneous enhancement of the kidneys. Left partial nephrectomy. Urinary bladder wall thickening with partial distention. Prostatectomy. There is no lymphadenopathy identified. No bowel obstruction. Mild thickening of the rectosigmoid is likely secondary to partial distention. Normal appendix. No ascites or mesenteric inflammation. Tiny fat filled periumbilical hernia. Degenerative changes of the spine, pelvis and hips. No acute fracture identified. Unchanged sclerotic focus of the left iliac bone is likely benign. IMPRESSION: 1. CTA of the chest, abdomen and pelvis demonstrates no aneurysm, dissection, high-grade stenosis or arterial occlusion. 2. No acute intrathoracic, intra-abdominal or intrapelvic abnormality. 3. Prior esophagectomy with gastric pull-through. Prior left partial nephrectomy with cholecystectomy and prostatectomy. 4. Nonspecific urinary bladder wall thickening. Correlate with urinalysis. 5. Additional findings as above. ACT 112: Negative or not required by law. The above report was generated using voice recognition software. It may contain grammatical, syntax or spelling errors. Electronically signed by: Mustapha Madrid M.D. 04/29/2022 2:59 PM Chest CTA 04/29/22 13:16 CT angio chest dissec wo/w con, CT angio abdomen pelvis w con HISTORY: 56 years-old Male eval dissection acute chest and abdominal pain. Prior esophageal resection with gastric pull-through. Suspicious left renal mass. Prior prostatectomy. COMPARISON: CT abdomen and pelvis 03/05/2022, CTA chest 07/05/2021 TECHNIQUE: CTA chest, abdomen and pelvis is obtained following the intravenous ministration of 120 mL Optiray 320. Non[address] CT images of the chest were also obtained. All measurements were obtained according to NASCET criteria. A dose lowering technique was used consistent with the principals of ALARA. FINDINGS: CTA CHEST: The heart is upper limits of normal in size. There is no thoracic aortic aneurysm or dissection. No intramural or mediastinal hematoma. Patency of the imaged great vessels. Unremarkable pulmonary artery. CT CHEST: Unremarkable thyroid. There is no lymphadenopathy of the chest identified. Prior esophagectomy with gastric pull-through. There is mild right hemidiaphragmatic elevation. There is no pneumothorax, pleural effusion, airspace consolidation or overt pulmonary edema. There are no suspicious pulmonary nodules or masses identified. There is mild subsegmental atelectasis/scarring of the right lung base. There are 2 subadjacent solid nodules of the left upper lobe measuring up to 2-3 mm which are stable and likely benign. Unremarkable soft tissues. Cervical spinal fusion hardware. Healed chronic appearing left-sided rib fractures. Mild levoscoliosis of the midthoracic spine. CTA ABDOMEN/PELVIS: There is no abdominal aortic aneurysm or dissection. There is mild atherosclerosis of the abdominal aorta and iliac bifurcation. The celiac trunk demonstrates mild less than 50% stenosis. The renal, superior and inferior mesenteric arteries are widely patent. The iliac and imaged femoral arteries are within normal limits. No retroperitoneal hematoma. CT ABDOMEN/PELVIS: No pneumatosis or pneumoperitoneum. Study is degraded by respiratory motion artifact. Unremarkable spleen, mildly atrophic pancreas and right adrenal gland. There is mild thickening of the left adrenal gland. Cholecystectomy. Unremarkable liver. Homogeneous enhancement of the kidneys. Left partial nephrectomy. Urinary bladder wall thickening with partial distention. Prostatectomy. There is no lymphadenopathy identified. No bowel obstruction. Mild thickening of the rectosigmoid is likely secondary to partial distention. Normal appendix. No ascites or mesenteric inflammation. Tiny fat filled periumbilical hernia. Degenerative changes of the spine, pelvis and hips. No acute fracture identified. Unchanged sclerotic focus of the left iliac bone is likely benign. IMPRESSION: 1. CTA of the chest, abdomen and pelvis demonstrates no aneurysm, dissection, high-grade stenosis or arterial occlusion. 2. No acute intrathoracic, intra-abdominal or intrapelvic abnormality. 3. Prior esophagectomy with gastric pull-through. Prior left partial nephrectomy with cholecystectomy and prostatectomy. 4. Nonspecific urinary bladder wall thickening. Correlate with urinalysis. 5. Additional findings as above. ACT 112: Negative or not required by law. The above report was generated using voice recognition software. It may contain grammatical, syntax or spelling errors. Electronically signed by: Mustapha Madrid M.D. 04/29/2022 2:59 PM ECG Additional Comments: As per HPI Code Status & VTE Plan Code Status Full code VTE Prophylaxis Plan VTE Prophylaxis will be ordered: Yes PG Care Time/CCT Total # of Minutes Spent Total Time Spent with Patient: Total time spent is greater than 50% in coordination of care (as documented) at patient's floor/unit and/or counseling patient: Coding Level of Care Code 00135 Initial Inpt Care Lvl 3 Diagnoses Gastro-esophageal reflux disease with esophagitis K21.0 Nausea & vomiting R11.14 Vomiting type: bilious vomiting Chronic constipation K59.09 Anemia D64.9 Anemia type: unspecified type History of esophageal cancer Z85.01 Cervical disc disease M50.90 Chronic pain G89.29 Elevated lipase R74.8 Chest pain R07.9 Major depressive disorder F32.9 (1) Anemia Anemia type: unspecified type Qualified Code(s): D64.9 - Anemia, unspecified (2) Nausea & vomiting Vomiting type: bilious vomiting Qualified Code(s): R11.14 - Bilious vomiting
[2022-04-29] MEDS ORDERED: ONDANSETRON INJ 2 MG/ML 2 ML VIAL IV PRN (17:42)
[2022-04-29] MEDS ORDERED: PROCHLORPERAZINE 10 MG in SYRINGE 8 ML IV PRN (17:42)
[2022-04-29] MEDS ORDERED: NITROGLYCERIN SL 0.4 MG/TAB TAB SL PRN (17:42)
[2022-04-29] MEDS ORDERED: cloNIDine HCL 0.1 MG TAB PO PRN (17:42)
[2022-04-29] MEDS ORDERED: SUCRALFATE 1 GM/10 ML UDC PO PRN (17:42)
[2022-04-29] MEDS: MoRPHine SULFATE 2 MG/ML CARP IV PRN ×4 (18:28→21:27)
[2022-04-29] MEDS: LACTATED RINGER'S 1,000 ML IV SCH (18:29)
[2022-04-29] MEDS: FAMOTIDINE 20 MG in SYRINGE 3 ML IV SCH (20:15)
[2022-04-29] MEDS: ENOXAPARIN INJ 40 MG/0.4 ML SYR SQ SCH (20:15)
[2022-04-29] MEDS: BUPRENORPHINE/NALOXONE 8/2 MG TAB SL SCH (20:15)
[2022-04-29] MEDS: PANTOprazole 40 MG in SYRINGE 0 ML IV SCH (20:15)
[2022-04-29] MEDS: GABAPENTIN 600 MG TAB PO SCH (20:16)
[2022-04-29] MEDS: FLUTICASONE PROPIONATE NA SPR 16 GM BTL NAE SCH (20:16)
[2022-04-30] MEDS: LACTATED RINGER'S 1,000 ML IV SCH ×2 (04:02→16:22)
[2022-04-30 06:38] LABS: Basophils # (auto) 0.02 K/uL (0-0.2); Basophils % (auto) 0.2 %; Eosinophils # (auto) 0.07 K/uL (0-0.5); Eosinophils % (auto) 0.6 %; Hematocrit (blood only) 39.6 % (42-52); Hemoglobin 13.2 g/dL (14.0-18.0); Immature Granulocytes # (auto) 0.03 K/uL (0.00-0.02); Immature Granulocytes % (auto) 0.3 %; Lymphocytes # (auto) 2.62 K/uL (1.2-3.4); Lymphocytes % (auto) 23.2 %; Mean Corpuscular Hemoglobin 29.1 pg (25-34); Mean Corpuscular Hgb Conc 33.3 g/dL (32-36); Mean Corpuscular Volume 87.2 fL (80-100); Mean Platelet Volume 10.3 fL (7.4-10.4); Monocytes # (auto) 1.09 K/uL (0.11-0.59); Monocytes % (auto) 9.6 %; Neutrophils # (auto) 7.47 K/uL (1.4-6.5); Neutrophils % (auto) 66.1 %; Platelet Count 261 K/uL (130-400); RDW Coefficient of Variation 16.6 % (11.5-14.5); RDW Standard Deviation 53.3 fL (36.4-46.3); Red Blood Count 4.54 M/uL (4.7-6.1)
[2022-04-30 07:05] LABS: Troponin I High Sensitivity 4.8 pg/ml (0-20)
[2022-04-30 07:24] LABS: Albumin Globulin Ratio 1.4 (0.9-2); Albumin Level 3.6 gm/dl (3.4-5.0); BUN Creatinine Ratio 15.7 (10-20); Bilirubin,Total 0.7 mg/dl (0.2-1.0); Calcium 8.8 mg/dl (8.5-10.1); Chol HDL Ratio 2.3 (0-5); Creatinine Clr Calc Pharmacy 115.2 ml/min; Est GFR (African American) 120.6 ml/min; Globulin 2.5 gm/dl (2.5-4.0); Magnesium 1.9 mg/dl (1.7-2.4); Potassium 4.2 mmol/L (3.5-5.1); Total Protein 6.1 gm/dl (6.0-8.3)
[2022-04-30] MEDS: MoRPHine SULFATE 2 MG/ML CARP IV PRN ×2 (10:07→22:21)
[2022-04-30] MEDS: FLUTICASONE PROPIONATE NA SPR 16 GM BTL NAE SCH ×2 (10:08→21:14)
[2022-04-30] MEDS: PANTOprazole 40 MG in SYRINGE 0 ML IV SCH ×2 (10:08→21:13)
[2022-04-30] MEDS: CITALOPRAM 20 MG TAB PO SCH (10:08)
[2022-04-30] MEDS: ASPIRIN 81 MG ECTAB PO SCH (10:08)
[2022-04-30] MEDS: GABAPENTIN 600 MG TAB PO SCH ×3 (10:09→21:13)
[2022-04-30] MEDS: POLYETHYLENE (MIRALAX) 17 GM PACK PO SCH (10:09)
[2022-04-30] MEDS: lisinopril 20 MG TAB PO SCH (10:09)
[2022-04-30] MEDS: SENNA 8.6 MG TAB PO SCH (10:10)
[2022-04-30] MEDS: FAMOTIDINE 20 MG in SYRINGE 3 ML IV SCH ×2 (10:11→21:13)
[2022-04-30] MEDS: BUPRENORPHINE/NALOXONE 8/2 MG TAB SL SCH ×2 (10:11→21:14)
--- NOTE | 2022-04-30 10:18 | XCELERA ---
[id number]
--- NOTE | 2022-04-30 17:09 | Hospitalist Progress Note ---
Date of Service April 30, 2022 Assessment & Plan (1) Chest pain: Plan: Patient with 4 days of intermittent left-sided chest wall pain that seems musculoskeletal in nature. Initial troponin negative, however ECG subtle changes CT angiogram chest/abdomen/pelvis negative for acute disease. It could be related to his ongoing nausea/vomiting. Stress test negative for ischemic changes LV function is intact (2) Nausea & vomiting: Plan: With ongoing nausea/vomiting since the morning of admission, with a history of such in the past Has had EGD and colonoscopy within the last few months, also had EUS given elevated lipase in the past which was reportedly normal as per GI notes CT abdomen/Pelvis negative for obstruction, but he is at risk for this given history of intra-abdominal surgery -Convert home PPI and Pepcid to IV will have GI evaluation as pt is known to them (3) Cervical disc disease: Plan: pt with radicular symptoms Just recently finished a burst of 10 days of prednisone which helped Continue Suboxone, ordered IV morphine as needed for severe breakthrough pain, continue Tylenol as needed MRI with and without contrast as history of cancer plus previous cervical spine surgery (4) Gastro-esophageal reflux disease with esophagitis: Plan: Convert home p.o. PPI and Pepcid to IV for now (5) Elevated lipase: Plan: As above (6) Chronic constipation: Plan: Continue home Movantik, senna, docusate, MiraLAX Had a bowel movement on 04/29 (7) Anemia: Plan: Currently a bit hemoconcentrated with hemoglobin at 16 which is higher than his baseline Receives IV iron infusions occasionally through oncology Follow CBC (8) Chronic pain: Plan: Continue home Suboxone (9) History of esophageal cancer: (10) Major depressive disorder: Plan: Stable at this time, no acute issues Continue home Celexa Plan: DVT prophylaxis-SCDs, SQ Lovenox Full code Admission and Anticipated Discharge Date Admission Date: April 29, 2022 Subjective pts chest pain has morphed to a musculoskeletal and reproducible, he has radicular neck pain with parathesias to both hands right > left. no leg pain or parethesias Review of Systems Review of Systems: Mild distress and fatigue no headache, no visual changes no speech or swallowing issues reproducible chest pain no pressure or palpitations no shortness of breath, cough or wheezes abdominal pain, nausea & vomiting post prandial issue no dysuria, hematuria or frequency no focal joint pain or swelling no back pain, CVA tenderness or radicular pain no bruising, bleeding or rashes no focal signs of weakness bilateral arms with paresthesias no complaints of anxiety or depression.. Physical Exam Physical Exam: The patient appeared well nourished and normally developed. Vital signs as documented. Head exam is normocephalic atraumatic Neck is without JVD, thyromegaly, or carotid bruits. Lungs are clear to auscultation, no focal loss of breath sounds Cardiac exam, Rhythm is regular.. No murmurs, rubs or gallops. chest wall with pectoralis tenderness on left Abdominal exam reveals normal bowel sounds, soft non tender, no masses Extremities are nonedematous and both pedal pulses are present Neurologic exam is alert and oriented, no focal loss of strength claims to have paresthesias Skin is without bruises or rashes Psychologically is without concerns for anxiety or depression.. Results & Data Results & Data ([facility]) Vital Signs (Past 12 Hours) Vital Signs Temp Pulse Pulse Resp BP BP Pulse Ox 04/30/22 15:15 98.6 F 79 18 138/89 97 04/30/22 14:58 79 04/30/22 11:55 98.6 F 77 18 128/80 96 04/30/22 07:54 98.8 F 87 18 121/72 93 04/30/22 07:53 80 PG Care Time/CCT Total # of Minutes Spent Total Time Spent with Patient: Total time spent is greater than 50% in coordination of care (as documented) at patient's floor/unit and/or counseling patient: Coding Level of Care Code 06937 Subseq Hosp Care Lvl 3 Diagnoses Chest pain R07.9 Nausea & vomiting R11.14 Vomiting type: bilious vomiting Gastro-esophageal reflux disease with esophagitis K21.0 Elevated lipase R74.8 Chronic constipation K59.09 Anemia D64.9 Anemia type: unspecified type Cervical disc disease M50.90 Chronic pain G89.29 History of esophageal cancer Z85.01 Major depressive disorder F32.9 (1) Nausea & vomiting Vomiting type: bilious vomiting Qualified Code(s): R11.14 - Bilious vomiting (2) Anemia Anemia type: unspecified type Qualified Code(s): D64.9 - Anemia, unspecified
[2022-04-30] MEDS ORDERED: MoRPHine SULFATE 4 MG/ML 1 ML CARP\\VIAL IV PRN (19:52)
--- NOTE | 2022-04-30 21:07 | Electrocardiogram Report ---
Test Reason : Blood Pressure : / mmHG Vent. Rate : 075 BPM Atrial Rate : 075 BPM P-R Int : 126 ms QRS Dur : 084 ms QT Int : 360 ms P-R-T Axes : 024 018 -54 degrees QTc Int : 402 ms Poor data quality, interpretation may be adversely affected Normal sinus rhythm with sinus arrhythmia Left ventricular hypertrophy with repolarization abnormality Abnormal ECG When compared with ECG of 30-DEC-2021 13:21, ST now depressed in Inferior leads Non-specific change in ST segment in Lateral leads T wave inversion now evident in Inferior leads Confirmed by Rush Carballo ([id number]) on 04/30/2022 9:07:26 PM Referred By: REFERRED SELF Confirmed By:Rush Carballo
--- NOTE | 2022-04-30 21:12 | Electrocardiogram Report ---
Test Reason : Blood Pressure : / mmHG Vent. Rate : 080 BPM Atrial Rate : 090 BPM P-R Int : 140 ms QRS Dur : 086 ms QT Int : 364 ms P-R-T Axes : 049 018 -34 degrees QTc Int : 419 ms Sinus rhythm with marked sinus arrhythmia Left ventricular hypertrophy with repolarization abnormality Abnormal ECG When compared with ECG of 29-APR-2022 11:40, No significant change was found Confirmed by Rush Carballo ([id number]) on 04/30/2022 9:12:10 PM Referred By: REFERRED SELF Confirmed By:Rush Carballo
[2022-04-30] MEDS: ENOXAPARIN INJ 40 MG/0.4 ML SYR SQ SCH (21:14)
--- NOTE | 2022-04-30 21:24 | Electrocardiogram Report ---
Test Reason : Blood Pressure : / mmHG Vent. Rate : 082 BPM Atrial Rate : 082 BPM P-R Int : 122 ms QRS Dur : 080 ms QT Int : 358 ms P-R-T Axes : 068 015 -19 degrees QTc Int : 418 ms Sinus rhythm with marked sinus arrhythmia Abnormal ECG When compared with ECG of 29-APR-2022 12:29, No significant change was found Confirmed by Rush Carballo ([id number]) on 04/30/2022 9:23:32 PM Referred By: REFERRED SELF Confirmed By:Rush Carballo
[2022-04-30] MEDS: ACETAMINOPHEN 325 MG TAB PO PRN (22:20)
[2022-04-30] MEDS ORDERED: GADOBUTROL 65ML VIAL IV ONE (23:44)
[2022-05-01] MEDS: ACETAMINOPHEN 325 MG TAB PO PRN ×3 (02:18→12:05)
[2022-05-01] MEDS: MoRPHine SULFATE 2 MG/ML CARP IV PRN ×2 (02:23→07:43)
--- NOTE | 2022-05-01 06:26 | Electrocardiogram Report ---
Test Reason : Blood Pressure : / mmHG Vent. Rate : 085 BPM Atrial Rate : 085 BPM P-R Int : 134 ms QRS Dur : 082 ms QT Int : 350 ms P-R-T Axes : 031 010 028 degrees QTc Int : 416 ms Normal sinus rhythm Normal ECG When compared with ECG of 29-APR-2022 16:24, ST no longer depressed in Inferior leads T wave inversion no longer evident in Inferior leads Confirmed by Rush Carballo ([id number]) on 05/01/2022 6:26:40 AM Referred By: REFERRED SELF Confirmed By:Rush Carballo
[2022-05-01] MEDS: BUPRENORPHINE/NALOXONE 8/2 MG TAB SL SCH (08:25)
[2022-05-01] MEDS: SENNA 8.6 MG TAB PO SCH (08:27)
[2022-05-01] MEDS: CITALOPRAM 20 MG TAB PO SCH (08:27)
[2022-05-01] MEDS: FLUTICASONE PROPIONATE NA SPR 16 GM BTL NAE SCH (08:27)
[2022-05-01] MEDS: PANTOprazole 40 MG in SYRINGE 0 ML IV SCH (08:27)
[2022-05-01] MEDS: ASPIRIN 81 MG ECTAB PO SCH (08:27)
[2022-05-01] MEDS: GABAPENTIN 600 MG TAB PO SCH ×2 (08:27→13:09)
[2022-05-01] MEDS: POLYETHYLENE (MIRALAX) 17 GM PACK PO SCH (08:28)
[2022-05-01] MEDS: lisinopril 20 MG TAB PO SCH (08:28)
[2022-05-01] MEDS: FAMOTIDINE 20 MG in SYRINGE 3 ML IV SCH (08:37)
[2022-05-01] MEDS ORDERED: KETOROLAC TROMETHAMINE 15 MG/ML VIAL IV PRN (10:23)
--- NOTE | 2022-05-01 11:32 | Gastrointestinal Consultation ---
Date of Consultation May 01, 2022 Assessment & Plan (1) Chest pain: (2) Chronic constipation: (3) Nausea & vomitin56 y/o male with PMhx Murry's, esophageal cancer, (adenocarcinoma at the [facility]), s/p esophagectomy with gastric pull-up in 2009, on chronic Subuxone, chronic anemia on iron, HTN, HLD, occasional SBO, chronic constipation, and others admittd w/ chest pain, ACS r/o. We are consulted for recurrent n/v. At this time, it seems n/v, has stopped. W/u nonacute including lab, CT. He tolerated a regular breakfast today, and his chronic abdominal pain is also improved. On exam, abdomen soft, nontender. Continue daily PPI Diet as tolerated Would continue his regular outpatient medications for his constipation It seems SBE being scheduled for inflamed small bowel polyp seen on recent VCE Follow-up with GI as an outpatient for his ongoing chronic issues GI will sign off, please call questions Thank you for allowing us to participate in the care of this patient. Please call with any acute changes, questions or concerns. Please see addendum below with additional recommendation from my supervising physician. Supervising Physician Co-Signing Physician Notes I saw and evaluated the patient. We were consulted for evaluation of nausea. This morning the patient notes that he feels much better and is tolerating a regular diet without any complications. The patient does have a long history of Suboxone use which has resulted in significant constipation. Physical examination Thin male, no obvious distress Impression: Patient with a history of intermittent nausea likely related to bowel habit irregularity from use of Suboxone. Perhaps the patient should follow with his mental health provider for further reduction of its dosing. With regard to endoscopy, the patient is due for a surveillance enteroscopy by one of my partners in the near future due to findings on the recent wireless capsule endoscopy. Please call with any questions or concerns, GI to sign off for the present time History of Present Illness Reason for Consultation: recurrent N/v, h/o esoph ca Requesting Physician: Dr. Wright Attending Physician: Hunter Beach MD History of Present Illness This is a 56 y/o male with PMhx Murry's, esophageal cancer, (adenocarcinoma at the [facility]), s/p esophagectomy with gastric pull-up in 2009, on chronic Subuxone, chronic anemia on iron, HTN, HLD, occasional SBO, chronic constipation, recurrent n/v, and others who was admitted w/ chest pain, r/o ACS. GI consulted for n/v. On arrival labs at baseline, lipase mildly elevated (chronic), CTA chest/abd nonacute. Nausea/vomiting has resolved and he tolerated a regular breakfast today. Denies current abd pain. Last BM yesterday; he is passing flatus. Has been working with GI as an outpatient to improve constipation, and evaluate his ongoing GI complaints including ongoing n/v. He takes Movantik and Linzess PRN. Bowels move every few days. Had a recent VCE as OP; reportedly has an inflamed small bowel polyp and small bowel enteroscopy is planned. No melena, hematochezia, hematemesis, change in appetite, fever, chills, CP, SOB, leg edema, jaundice, icterus, dark urine, osman stool. EUS 01/2022: - Z-line regular, 31 cm from the incisors. - An esophago-gastric anastomosis was found with gastric pull up and pyloroplasty was found. - Normal duodenal bulb and second portion of the duodenum. - There was no sign of significant pathology in the ampulla. - There was no sign of significant pathology in the common bile duct. No stones or sludge. - Evidence of a cholecystectomy. - There was no evidence of significant pathology in the visualized portion of the liver. - There was no sign of significant pathology in the entire pancreas. - No specimens collected. Colonoscopy 12/2021: - Preparation of the colon was fair. - The examined colon appeared normal. - One 8 mm polyp in the cecum, removed with a cold snare. Resected and retrieved. - One 6 mm polyp in the ascending colon, removed with a cold snare. Resected and retrieved. - Internal hemorrhoids. - The examination was otherwise normal on direct and retroflexion views EGD 2020:- An esophago-gastric anastomosis was found. Biopsied. - Normal stomach. - Normal examined duodenum. Colonoscopy 2020: Poor prep. Hemorrhoids. Repeat 3 months EGD 2019: - Normal esophagus. - Bilious gastric fluid. Normal appearing stomach. Biopsies were obtained from the stomach. - Normal examined small intestine. Biopsied. Colonoscopy 2010: Preparation of the colon was poor. - Internal hemorrhoids. - Anal fissure. Allergies Allergy/AdvReac Type Severity Reaction Status Date / Time No Known Allergies Allergy Verified 04/29/22 15:05 Home Medications Medication Instructions Recorded Confirmed Type buprenorphine 8 mg-naloxone 2 mg 1 tab SUBLINGUAL BID 01/09/21 04/29/22 History sublingual tablet fluoride (sodium) 1.1 % dental 1 applic DENTAL HS 04/13/21 04/29/22 History paste (PreviDent 5000 Booster Plus) polyethylene glycol 3350 17 gram 17 g PO DAILY #100 ea 07/07/21 04/29/22 Rx oral powder packet (Miralax) citalopram 20 mg tablet 20 mg PO QAM #90 tab 07/12/21 04/29/22 Rx dexlansoprazole 60 mg 60 mg PO DAILY #90 cap 09/19/21 04/29/22 Rx capsule,biphase delayed release lisinopril 20 mg tablet 20 mg PO QAM #30 tab 10/01/21 04/29/22 Rx famotidine 40 mg tablet (Pepcid) 20 mg PO QPM 11/27/21 04/29/22 History sucralfate 100 mg/mL oral 1 g PO ACHS PRN 11/27/21 04/29/22 History suspension naloxegol 25 mg tablet (Movantik) 25 mg PO QAM #30 tab 12/01/21 04/29/22 Rx sennosides 8.6 mg tablet (senna) 8.6 mg PO DAILY 12/03/21 04/29/22 History promethazine 25 mg rectal 25 mg OK Q6H PRN #12 ea 12/30/21 04/29/22 Rx suppository fluticasone propionate 50 1 - 2 spray INTRANASAL BID #16 g 01/14/22 04/29/22 Rx mcg/actuation nasal spray,suspension cyanocobalamin (vitamin B-12) 500 1,000 mcg PO QAM #90 tab 03/08/22 04/29/22 Rx mcg tablet ondansetron 4 mg disintegrating 4 mg PO Q8H PRN #10 tab 03/08/22 04/29/22 Rx tablet clonidine HCl 0.1 mg tablet 0.1 mg PO BID PRN #60 tab 04/10/22 04/29/22 Rx gabapentin 300 mg capsule 600 mg PO TID PRN #180 cap 04/15/22 04/29/22 Rx prednisone 10 mg tablet 10 mg PO .COMPLEX #42 tab 04/15/22 04/29/22 Rx cholecalciferol (vitamin D3) 25 25 mcg PO DAILY #30 cap 04/22/22 04/29/22 Rx mcg (1,000 unit) capsule Patient History Medical History (Updated 05/01/22 @ 11:29 by Sandy Miller PASandyC) Abnormal weight loss Acute dehydration 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 dx'ed with esophageal cancer in 2007 EGD in 10/2020 did show Barretts with esophagitis and ulcers - put on PPI Candidal esophagitis S/p treatment after EGD Chronic pain Elevated lipase Esophageal cancer 2007 s/p chemo and radiation Fissure, anal Pt unsure if still present- getting repeat colonoscopy in the future Fracture of multiple thoracic vertebrae 25 years ago Gastro-esophageal reflux disease with esophagitis Uncontrolled Hepatitis C [id number] Intractable nausea and vomiting Iron deficiency anemia Lumbago Major depressive disorder Restless leg No current issues 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 Withdrawal from opioids Was on increased opioids in the past secondary to chronic back pain- weaned off pain medications- was taking herbal supplement (Kraton)= now using Suboxone to taper off supplement Surgical History H/O radical prostatectomy History of anesthesia reaction pt states he woke up during 2 EGD procedures and during shoulder sx History of colonoscopy History of cystoscopy History of esophagectomy 2007 History of esophagogastroduodenoscopy (EGD) recent 10/31/2020 History of nephrectomy, left History of repair of rotator cuff right and left shoulder History of right knee surgery meniscectomy Hx laparoscopic cholecystectomy Status post surgery neck surgery with hardware Family History Father Hypertension Myocardial infarction Coronary heart disease Mother Cancer Skin and Lung Brother Hypertension Other No family history of adverse response to anesthesia Denies family history of Ovarian cancer Prostate cancer Breast cancer Colorectal cancer Social History (Updated 04/29/22 @ 16:26 by Selene Oseguera MD) Smoking Status: Never smoker Tobacco Type: Cigarettes Years Smoked: 10; Second Hand Exposure: No; Hx Alcohol Use: No Hx Substance Use: No Preferred Language: Hebrew Communication Ability: Effective Visual Impairment: No Limitations Hearing Ability: Normal 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 Beliefs That Will Affect Care: None marital status: Current Living Situation: Spouse current occupational status: employed 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 Feels Safe at Home: Yes Childhood Exposure to Second-Hand Smoke: Yes caffeine: Yes Dental Care, Regularly: Yes Physical Activity Frequency: Daily Seatbelt Use: always Sunscreen Use: No Assistive Devices: None Review of Systems Review of Systems: All systems reviewed & are unremarkable except as noted in HPI & below Physical Exam Constitutional: WD/WN, vitals as above (chronically ill) Eyes: PERRL, conjunctivae normal, anicteric sclerae ENMT: external ear and nose normal, oropharynx normal Respiratory: normal respiratory effort, lungs clear to auscultation Cardiovascular: RRR, no murmur, no edema Gastrointestinal (Abdomen): normal bowel sounds, soft, nontender, no hepatosplenomegaly Skin: no rashes, warm and dry Psychiatric: A+Ox3, euthymic affect Results & Data ([facility]) Vital Signs (Past 12 Hours) Vital Signs Temp Pulse Resp BP Pulse Ox 05/01/22 08:20 36.7 C 72 16 167/97 H 97 Diagnostic Findings CTA chest/abd/pelvis: CTA CHEST: The heart is upper limits of normal in size. There is no thoracic aortic aneurysm or dissection. No intramural or mediastinal hematoma. Patency of the imaged great vessels. Unremarkable pulmonary artery. CT CHEST: Unremarkable thyroid. There is no lymphadenopathy of the chest identified. Prior esophagectomy with gastric pull-through. There is mild right hemidiaphragmatic elevation. There is no pneumothorax, pleural effusion, airspace consolidation or overt pulmonary edema. There are no suspicious pulmonary nodules or masses identified. There is mild subsegmental atelectasis/scarring of the right lung base. There are 2 subadjacent solid nodules of the left upper lobe measuring up to 2-3 mm which are stable and likely benign. Unremarkable soft tissues. Cervical spinal fusion hardware. Healed chronic appearing left-sided rib fractures. Mild levoscoliosis of the midthoracic spine. CTA ABDOMEN/PELVIS: There is no abdominal aortic aneurysm or dissection. There is mild atherosclerosis of the abdominal aorta and iliac bifurcation. The celiac trunk demonstrates mild less than 50% stenosis. The renal, superior and inferior mesenteric arteries are widely patent. The iliac and imaged femoral arteries are within normal limits. No retroperitoneal hematoma. CT ABDOMEN/PELVIS: No pneumatosis or pneumoperitoneum. Study is degraded by respiratory motion artifact. Unremarkable spleen, mildly atrophic pancreas and right adrenal gland. There is mild thickening of the left adrenal gland. Cholecystectomy. Unremarkable liver. Homogeneous enhancement of the kidneys. Left partial nephrectomy. Urinary bladder wall thickening with partial distention. Prostatectomy. There is no lymphadenopathy identified. No bowel obstruction. Mild thickening of the rectosigmoid is likely secondary to partial distention. Normal appendix. No ascites or mesenteric inflammation. Tiny fat filled periumbilical hernia. Degenerative changes of the spine, pelvis and hips. No acute fracture identified. Unchanged sclerotic focus of the left iliac bone is likely benign. IMPRESSION: 1. CTA of the chest, abdomen and pelvis demonstrates no aneurysm, dissection, high-grade stenosis or arterial occlusion. 2. No acute intrathoracic, intra-abdominal or intrapelvic abnormality. 3. Prior esophagectomy with gastric pull-through. Prior left partial nephrectomy with cholecystectomy and prostatectomy. 4. Nonspecific urinary bladder wall thickening. Correlate with urinalysis. 5. Additional findings as above. (1) Chest pain Chest pain type: unspecified Qualified Code(s): R07.9 - Chest pain, unspecified
--- NOTE | 2022-05-01 14:40 | Magnetic Resonance Report ---
MR cervical spine wo/w con HISTORY: 56 years-old Male radicular pain, prev surg, h/o prost and esop CA chronic neck pain with r ight upper extremity numbness and tingling. History of prior cervical spine surgery COMPARISON: MRI cervical spine 04/30/2016 TECHNIQUE: Multiple multisequence MRI of the cervical spine was obtained both with and without the us e of 7.5 cc Gadavist FINDINGS: The operator coating furnace localizer images demonstrate no gross extraspinal abnormality. Mild levoscoliosis of the up per thoracic spine. There is no abnormal enhancement identified. The study is motion degraded. Signal within the posterior fossa, brainstem, cervical and imaged thoracic spinal cord is unremarkable. The re is moderate marrow in adjacent soft tissue edema involving the right C2-C3 facets with trace assoc iated facet effusion. No acute fracture line identified. C5-C7 anterior plate and screw fusion with d iscectomy redemonstrated. Bone marrow signal is otherwise within normal limits. Progressively worsene d discogenic degeneration with facet arthrosis. C2-C3: Mild intervertebral disc space narrowing with uncovertebral hypertrophy and small posterior an nular disc bulge. Moderate left with severe right facet arthrosis. The central canal and neural musa en appear patent. C3-C4: Mild intervertebral disc space narrowing with uncovertebral hypertrophy and small posterior an nular disc bulge. Moderate to severe facet arthrosis. The central canal is patent. Mild right with mo derate left neural foraminal narrowing, progressed from the prior. C4-C5: Mild to moderate intervertebral disc space narrowing with spondylitic spurring and uncovertebr al hypertrophy. Increased size of the central disc protrusion measuring 12 mm transversely. Moderate facet arthrosis. AP dimension of the thecal sac measures 7 mm. There is anterior deformity of the cer vical spinal cord. Mild to moderate central canal stenosis with mild to moderate bilateral foraminal narrowing. C5-C6: Mild facet arthrosis. No central canal or foraminal narrowing. C6-C7: Mild facet arthrosis. No central canal or foraminal narrowing. C7-T1: Moderate intervertebral disc space narrowing with uncovertebral hypertrophy, small posterior a nnular disc bulge and small central disc protrusion measuring 6 mm transversely. There is flattening of the ventral thecal sac without significant central canal stenosis. The neural foramen appear paten t. IMPRESSION: 1. C5-C6 and C6-C7 anterior plate and screw fusion with discectomy redemonstrated. 2. Progressively worsened discogenic degeneration as above, most pronounced at C4-C5 where there is r esultant mild to moderate central canal stenosis with mild to moderate bilateral foraminal narrowing. 3. Moderate marrow and adjacent soft tissue edema involving the right C2-C3 facets is likely degenera tive related to severe facet arthrosis. 4. Normal signal of the cervical spinal cord. 5. No abnormal enhancement. ACT 112: Negative or not required by law. The above report was generated using voice recognition software. It may contain grammatical, syntax o r spelling errors. Electronically signed by: Mustapha Madrid M.D. 05/01/2022 2:39 PM
--- NOTE | 2022-05-01 15:44 | Discharge Summary ---
Date of Service May 01, 2022 Admission HPI Per Admitting Provider This patient is a 56-year-old male with a history of esophageal cancer and esophagectomy, prostate cancer, renal cell carcinoma, chronic neck and abdominal pain, GERD, chronic constipation, HTN, iron deficiency anemia, depression, who presents to the ER with chest pain and nausea/vomiting. He reports he has been having pains around the left side of his chest coming and going even at rest that feel like a muscle strain, worse with movement of the arms for the last 4 days. It was not associated with shortness of breath but was worsened by cough. He has been having some postnasal drip causing him to cough. This morning around 630, he began having intractable nausea and vomiting that was nonbloody. He reports subjective fevers at home but did not check his temperature. He does have a history of chronic constipation and recurrent nausea/vomiting in the past as per GI records, but he reports a bowel movement today as well as yesterday- both were nonbloody and no melena. In the ER, he vomited and then his abdominal pain got much worse and he became diaphoretic and pale. There was concern for dissection and he was sent for a CT angiogram of the chest/abdomen/pelvis which was negative for such. His ECG did show ST depressions inferior and laterally versus LVH with repolarization abnormality-this was changed from previous ECGs. After the CT scan, his acute abdominal pain did improve and his chest pain is resolved at the time I saw him. D-dimer is elevated at 830, initial troponin was negative, WBC count slightly elevated at 14 but he did just finish a prednisone taper for neck pain which did help. Lipase also mildly elevated and has been in the past with normal EUS with GI in 01/2022. Chemistry was otherwise fairly unremarkable, LFTs normal, and COVID-19 was negative. In the ER, he was given 2 doses of Compazine, 2 doses of Zofran, and aspirin 324 mg p.o. x1. His nausea is now improved with such. He will be admitted for chest pain and abnormal ECG to rule out acute coronary syndrome. Principal Diagnosis Noncardiac chest pain Cervical radiculopathy Discharge Exam General: A&Ox3. NAD. Cooperative. HEENT: Atraumatic, normocephalic. Pupils equal and reactive, vision and hearing grossly intact Pulm: CTAB A&P. -wheezes, -rales, -rhonchi. Symmetrical chest rise. No increase in work of breathing. No respiratory distress. Cardiac: RRR, -mrg. Radial pulses intact and symmetrical. Abdominal: Nontender, nondistended, soft. BS present. Extremities: Engineering Librarian strength, wrist flexion/extension, elbow flexion/extension 5/5 bilaterally without asymmetry. No muscular atrophy appreciated of the upper extremities. Sensation intact to soft touch in upper extremities bilaterally. Neck extension does produce some shooting pain down both arms, chronic but worsening in the last month per patient. Ankle dorsiflexion/plantarflexion intact without asymmetry. Cap refill in thumbs brisk Discharge Data Allergies Allergy/AdvReac Type Severity Reaction Status Date / Time No Known Allergies Allergy Verified 04/29/22 15:05 Consultations 04/29/22 15:36 ED Decision to Admit Stat 04/30/22 19:52 Consult Gastroenterology Routine 05/01/22 08:34 Burn CD for patient Routine Ordered Studies 04/29/22 13:16 CT angio abdomen pelvis w con Stat CT angio chest dissec wo/w con Stat 04/30/22 19:52 MR cervical spine wo/w con Routine Hospital Course (1) Chest pain: Shahbaz is a 56-year-old male with a history of traumatic disc herniation and cervical spine surgery with hardware placement who presented with 4 days of intermittent left-sided chest pain and nausea/vomiting. Stress echo was negative for ischemia and normal LV function. He did have reproducible chest pain on palpation likely musculoskeletal in the setting of nausea and vomiting. This had resolved by time of discharge. He was seen by GI for his nausea vomiting and with a history of Murry's and esophageal cancer. He was recommended to continue a PPI and have outpatient follow-up with [facility] for inflamed full bowel follow-up in [place] and Dr. Sifuentes. No further inpatient evaluation/treatment was recommended. Patient did have concerning upper extremity radicular symptoms including dropping objects, shooting pain in both arms exacerbated by neck movement. MRI was obtained as below, and while this showed degenerative disease and central canal stenosis did not show any abnormal spine signal. This was discussed with orthospine and with the patient. He preferred to keep follow-up with [facility] neurosurgery for which she was already scheduled in the coming month. Return precautions were given, and patient will follow up with [facility] [place] if there is any delay in being seen. MRI was burned to a disc for the patient who is dropping it off to [facility] day of discharge for review and has been in contact with their office for scheduling and follow- up. Patient with 4 days of intermittent left-sided chest wall pain that seems musculoskeletal in nature. Initial troponin negative, however ECG subtle changes CT angiogram chest/abdomen/pelvis negative for acute disease. It could be related to his ongoing nausea/vomiting. Stress test negative for ischemic changes LV function is intact (2) Nausea & vomiting: With ongoing nausea/vomiting since the morning of admission, with a history of such in the past. Resolved at time of discharge Has had EGD and colonoscopy within the last few months, also had EUS given elevated lipase in the past which was reportedly normal as per GI notes CT abdomen/Pelvis negative for obstruction, but he is at risk for this given history of intra-abdominal surgery -Continue daily PPI Will have follow-up with GI for [facility] due to inflamed small bowel polyp. This is being scheduled with Dr. Tami Askew in [place] (3) Cervical disc disease: pt with radicular symptoms Just recently finished a burst of 10 days of prednisone which helped Discussed with orthospine, and patient. No indication for emergency decompression/surgery at this time. May keep [facility] neurosurgery follow-up. MRI copied as below. FINDINGS: The athletic scout localizer images demonstrate no gross extraspinal abnormality. Mild levoscoliosis of the upper thoracic spine. There is no abnormal enhancement identified. The study is motion degraded. Signal within the posterior fossa, brainstem, cervical and imaged thoracic spinal cord is unremarkable. There is moderate marrow in adjacent soft tissue edema involving the right C2-C3 facets with trace associated facet effusion. No acute fracture line identified. C5-C7 anterior plate and screw fusion with discectomy redemonstrated. Bone marrow signal is otherwise within normal limits. Progressively worsened discogenic degeneration with facet arthrosis. C2-C3: Mild intervertebral disc space narrowing with uncovertebral hypertrophy and small posterior annular disc bulge. Moderate left with severe right facet arthrosis. The central canal and neural foramen appear patent. C3-C4: Mild intervertebral disc space narrowing with uncovertebral hypertrophy and small posterior annular disc bulge. Moderate to severe facet arthrosis. The central canal is patent. Mild right with moderate left neural foraminal narrowing, progressed from the prior. C4-C5: Mild to moderate intervertebral disc space narrowing with spondylitic spurring and uncovertebral hypertrophy. Increased size of the central disc protrusion measuring 12 mm transversely. Moderate facet arthrosis. AP dimension of the thecal sac measures 7 mm. There is anterior deformity of the cervical spinal cord. Mild to moderate central canal stenosis with mild to moderate bilateral foraminal narrowing. C5-C6: Mild facet arthrosis. No central canal or foraminal narrowing. C6-C7: Mild facet arthrosis. No central canal or foraminal narrowing. C7-T1: Moderate intervertebral disc space narrowing with uncovertebral hypertrophy, small posterior annular disc bulge and small central disc protrusion measuring 6 mm transversely. There is flattening of the ventral thecal sac without significant central canal stenosis. The neural foramen appear patent. IMPRESSION: 1. C5-C6 and C6-C7 anterior plate and screw fusion with discectomy redemonstrated. 2. Progressively worsened discogenic degeneration as above, most pronounced at C4-C5 where there is resultant mild to moderate central canal stenosis with mild to moderate bilateral foraminal narrowing. 3. Moderate marrow and adjacent soft tissue edema involving the right C2-C3 facets is likely degenerative related to severe facet arthrosis. 4. Normal signal of the cervical spinal cord. 5. No abnormal enhancement. (4) Gastro-esophageal reflux disease with esophagitis: Convert home p.o. PPI and Pepcid to IV for now (5) Elevated lipase: As above (6) Chronic constipation: Continue home Movantik, senna, docusate, MiraLAX Had a bowel movement on 04/29 (7) Anemia: Slightly hemoconcentrated during admission, no signs of bleeding or indication for transfusion during admission Receives IV iron infusions occasionally through oncology (8) Chronic pain: Continue home Suboxone (9) History of esophageal cancer: (10) Major depressive disorder: Stable at this time, no acute issues Continue home Celexa DVT prophylaxis-SCDs, SQ Lovenox Full code Total Time Total Time Spent Total Time Spent (In Minutes): Time spend day of discharge 60 minutes including direct patient care, documentation, review of labs and images, and coordination of care. Discharge Plan Discharge Items Patient Disposition: Home - Self-Care Reason For Visit: CHEST PAIN,N/V Discharge Diagnosis: Noncardiac Chest Pain Cervical Radiculopathy Activity: Per Instructions section Non-emergency contact: Primary Care Provider and Surgeon Call non-emergency contact if: you have any medication questions and your symptoms worsen Follow-up/Referrals: Sarah Rodríguez PA-C [Primary Care Provider] - 05/08/22 1:30 pm Elizabeth Sarabia MD [Physician] - (To be scheduled for endo in [place]) Diet: Regular Addtl Attending Provider Instructions: You were seen in the hospital for evaluation of nausea/vomiting and chest pain. You had slight subtle changes on your EKG which were nonspecific, a follow-up stress test did not show any evidence of ischemic heart disease or heart attack. A CAT scan of the chest did not show any acute abnormalities or blood clots. Your pain was reproducible on palpation, and was likely musculoskeletal. You may use over the counter Voltarin (diclofenac gel) at this site for pain relief as indicated by the box labelling. You were seen by GI who recommended outpatient follow-up, and follow-up with Dr. Sarabia in [place] is being arranged for you. You have a history of cervical disc disease with hardware placement. You were experiencing numbness/tingling in your upper extremities with reports of neck pain and dropping objects, a MRI was performed. This does show worsened disc degeneration most pronounced at C4-C5 with mild to moderate central canal stenosis (narrowing), degenerative severe facet arthrosis, and bilateral for aminal narrowing. This was discussed with you and with orthospine. You have a follow-up this month with neurosurgery at [facility], and preferred to follow-up with their services. This is reasonable, and there was no sign of abnormal signal of your spinal cord itself. You should be seen within 1 month, and are dropping a burn disc image off for their review. If your images are unable to be reviewed within 1 month, or you are unable to be seen by their service within [address] Meza's office at [phone] who can see you for a follow-up appointment if required. Return precautions were discussed. If you have any persistent numbness/tingling, worsening strength, severe or concerning pain, or new neurologic findings please seek prompt medical reevaluation. A followup appointment with your PCP is being scheduled as above. You should be seen within 2 weeks. If you develop any new or worsening symptoms including fever, chills, sweats, chest pain, chest pressure, difficulty breathing, uncontrolled nausea/vomiting, rash, wheezing, passing out or nearly passing out, bleeding, black/bloody bowel movements, or other new or concerning symptoms please call your primary care physician, or call 911 for re-evaluation in the emergency department if you are very concerned. Pending Studies at Discharge: No Stand-Alone Forms: [facility] [employer], Smoking Cessation, Work/School Release Medications and DC Order Prescriptions: Continued citalopram 20 mg tablet 20 mg PO QAM Qty: 90 RF: 3 lisinopril 20 mg tablet 20 mg PO QAM Qty: 30 RF: 11 fluticasone propionate 50 mcg/actuation spray,suspension 1 - 2 spray intranasal BID Qty: 16 RF: 5 clonidine HCl 0.1 mg tablet 0.1 mg PO BID PRN (Reason: Anxiety) Qty: 60 RF: 3 cholecalciferol (vitamin D3) 25 mcg (1,000 unit) capsule 25 mcg PO DAILY Qty: 30 RF: 0 gabapentin 300 mg capsule 600 mg PO TID PRN (Reason: Pain) Qty: 180 RF: 11 prednisone 10 mg tablet 10 mg PO .COMPLEX Qty: 42 RF: 0 sennosides [senna] 8.6 mg tablet 8.6 mg PO DAILY RF: 0 dexlansoprazole 60 mg capsule,biphase delayed releas 60 mg PO DAILY Qty: 90 RF: 3 buprenorphine-naloxone 8-2 mg Tablet, Sublingual 1 tab SUBLINGUAL BID RF: 0 promethazine 25 mg suppository 25 mg RI Q6H PRN (Reason: sedation) Qty: 12 RF: 0 cyanocobalamin (vitamin B-12) 500 mcg Tablet 1,000 mcg PO QAM Qty: 90 RF: 3 ondansetron 4 mg tablet,disintegrating 4 mg PO Q8H PRN (Reason: nausea and vomiting) Qty: 10 RF: 0 fluoride (sodium) [PreviDent 5000 Booster Plus] 1.1 % paste 1 applic dental HS RF: 0 polyethylene glycol 3350 [Miralax] 17 gram Powder In Packet 17 g PO DAILY Qty: 100 RF: 0 sucralfate 100 mg/mL suspension 1 g PO ACHS PRN (Reason: Acid Reflux) RF: 0 famotidine [Pepcid] 40 mg tablet 20 mg PO QPM RF: 0 Movantik 25 mg tablet 25 mg PO QAM Qty: 30 RF: 1 Discharge Orders: Discharge Order (Routine); Ordered 05/01/22 Ordered By: Hunter Beach Admission Data Admit Date/Time: 04/29/22 16:58 Attending Provider: Hunter Beach Admit Provider: Selene Oseguera Primary Care Provider: Sarah Rodríguez Other Providers: Selene Oseguera ; Elizabeth Sarabia Coding Level of Care Code D/C DAY MANAGEMENT >30 MINS Diagnoses Chest pain R07.9 Nausea & vomiting R11.14 Vomiting type: bilious vomiting Cervical disc disease M50.90 Gastro-esophageal reflux disease with esophagitis K21.0 Elevated lipase R74.8 Chronic constipation K59.09 Anemia D64.9 Anemia type: unspecified type Chronic pain G89.29 History of esophageal cancer Z85.01 Major depressive disorder F32.9
== END 2022-05-01 16:55 | disposition home or self-care (01) | DRG 313 ==
LOC: ED 11:32 → INTOOBSV 16:58 → OBSVTOIN 16:58 → 2S 16:58 → SUATTDRO 16:58 → 2S 17:14 → 3W 04-30 19:49

== ENCOUNTER 2022-05-31 11:31 | Observation (INO) ==
--- NOTE | 2022-05-31 11:54 | Emergency Department Note ---
Impression & Plan Elevated lipase, Abdominal pain, Nausea & vomiting, Acute dehydration ED Provider Note NAME: ERENDIRA OTT AGE: 56 SEX: M : 1965 ARRIVES VIA: Walk-In INFORMANT: [Patient][, ] ED PROVIDER(S): [Christian Aaron MD] Chief Complaint: Nausea vomiting, abdominal pain HPI: Patient presents for the above complaints and states he has had associated nausea vomiting over the last 24 hours. Patient states he is at least vomited 10 times nonbloody in nature. Does complain of some chest and abdominal pain but describes it as a crampiness. Patient had a prior history of esophageal cancer status post esophagectomy and pull-through. Patient does not think that he is having a heart attack but thinks it is related to the vomiting as he describes it is more of a "cramping and queasy feeling. The patient had trialed water as well as his at home medications for nausea including Zofran but without significant improvement in symptoms. Patient presented here to help with his likely dehydration and associated nausea vomiting. Patient denies any falls or trauma. Patient denies any alcohol or tobacco use. The patient denies any fevers or chills. Patient has not been able to take his medications in the last 24 hours. Patient does state that he was recently transition to a new medication called Movantik after being on Linzess in the past. This is by Dr. April Askew with [facility] within the last month. No other medication changes. ROS: See HPI for pertinent positives and negatives. A total of 10 systems were reviewed and otherwise negative. Past medical history: See below Surgical history: See below Social history: See below Physical Exam: GENERAL: Nontoxic, fatigued in appearance. EYE EXAM: Normal conjunctiva. PERRL, no anisocoria and EOM's grossly intact w/o pain. NECK: Supple, no nuchal rigidity, no adenopathy, non-tender. No signs of meningismus. FROM of the neck with good chin to chest and neck extension. No stridor. LUNGS: Clear to auscultation. Normal chest wall mechanics. HEART: NSR, no MRG. ABDOMEN: Abdomen soft, mild upper abdominal discomfort but no right upper quadr ant pain, not peritonitic and no lower abdominal pain. nNormo-active bowel sounds, no masses, no rebound or guarding. BACK: No CVA TTP. SKIN: No rashes and no bruising. UPPER EXTREMITIES: Upper extremities are grossly normal. LOWER EXTREMITIES: Grossly normal, no edema. NEURO EXAM: A&O x3, cranial nerves II-XII grossly intact, normal speech, moves all 4 extremities. Differential diagnoses: Appendicitis, testicular torsion, infections, diverticulitis, UTI, obstruction, mesenteric ischemia, aortic pathology, inflammatory bowel disease, renal colic, PUD, pancreatitis, biliary pathology, hernia, volvulus, constipation, as well as other pathologies. Course: Patient was seen and evaluated the bedside. Full history physical exam was performed. EKG interpreted by me Normal sinus rhythm, rate of 72, normal intervals, normal axis, no ST elevations or T WI. May have LVH. Imaging Studies: See Below Cardiac monitoring: An order was placed for continuous cardiac monitoring. The monitor shows a rate of 75 with sinus rhythm. MDM: Patient presented due to concern for persistent nausea and vomiting. Blood work was obtained which showed a white count of 11 with a normal H&H and platelet count. Kidney function was unremarkable. Patient troponin was not elevated. Lipase elevated at 201. COVID-negative. Patient's plain films show no acute process of the chest and nonobstructive bowel gas pattern. Patient's EKG does not show any obvious ischemic change. Patient may have an element of LVH. Patient was trialed with several rounds of antiemetics with the patient had persistent discomfort and associated vomiting. I did speak the on-call hospitalist Dr. Beach and the patient was admitted to the medicine service. Past Med/Surg History Medical History Abnormal weight loss Acute dehydration 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 dx'ed with esophageal cancer in 2007 EGD in 10/2020 did show Barretts with esophagitis and ulcers - put on PPI Candidal esophagitis S/p treatment after EGD Chronic pain Elevated lipase Esophageal cancer 2007 s/p chemo and radiation Fissure, anal Pt unsure if still present- getting repeat colonoscopy in the future Fracture of multiple thoracic vertebrae 25 years ago Gastro-esophageal reflux disease with esophagitis Uncontrolled Hepatitis C [id number] Intractable nausea and vomiting Iron deficiency anemia Lumbago Major depressive disorder Nausea & vomiting Nausea & vomiting Restless leg No current issues 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 Withdrawal from opioids Was on increased opioids in the past secondary to chronic back pain- weaned off pain medications- was taking herbal supplement (Kraton)= now using Suboxone to taper off supplement Surgical History H/O radical prostatectomy History of anesthesia reaction pt states he woke up during 2 EGD procedures and during shoulder sx History of colonoscopy History of cystoscopy History of esophagectomy 2007 History of esophagogastroduodenoscopy (EGD) recent 10/31/2020 History of nephrectomy, left History of repair of rotator cuff right and left shoulder History of right knee surgery meniscectomy Hx laparoscopic cholecystectomy Status post surgery neck surgery with hardware Family History Father Hypertension Myocardial infarction Coronary heart disease Mother Cancer Skin and Lung Brother Hypertension Other No family history of adverse response to anesthesia Denies family history of Ovarian cancer Prostate cancer Breast cancer Colorectal cancer Social History Smoking Status: Current some day smoker Tobacco Type: Cigarettes Years Smoked: 10; Second Hand Exposure: No; Hx Alcohol Use: No Hx Substance Use: No Preferred Language: Zambian Communication Ability: Effective Visual Impairment: No Limitations Hearing Ability: Normal Roofer Vinyl Coating Required: No Beliefs That Will Affect Care: None marital status: Current Living Situation: Spouse current occupational status: employed 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 How many Children do You have: 2 Feels Safe at Home: Yes Childhood Exposure to Second-Hand Smoke: Yes caffeine: Yes Dental Care, Regularly: Yes Physical Activity Frequency: Daily Seatbelt Use: always Sunscreen Use: No Assistive Devices: None Allergies Allergies Allergy/AdvReac Type Severity Reaction Status Date / Time No Known Allergies Allergy Verified 05/02/22 09:11 Home Meds Home Medications Medication Instructions Recorded Confirmed buprenorphine 8 mg-naloxone 2 mg 1 tab sublingual BID 01/09/21 05/31/22 sublingual tablet famotidine 40 mg tablet (Pepcid) 20 mg PO QPM 11/27/21 05/31/22 sucralfate 100 mg/mL oral 1 g PO ACHS PRN Acid Reflux 11/27/21 05/31/22 suspension prucalopride 2 mg tablet 2 mg PO DAILY 05/31/22 05/31/22 (Motegrity) Previous Rx's Medication Instructions Recorded dexlansoprazole 60 mg 60 mg PO DAILY #90 caps 09/19/21 capsule,biphase delayed release lisinopril 20 mg tablet 20 mg PO QAM #30 tabs 10/01/21 cyanocobalamin (vitamin B-12) 500 1,000 mcg PO QAM #90 tabs 03/08/22 mcg tablet ondansetron 4 mg disintegrating 4 mg PO Q8H PRN nausea and 03/08/22 tablet vomiting #10 tabs clonidine HCl 0.1 mg tablet 0.1 mg PO BID PRN Anxiety #60 tabs 04/10/22 gabapentin 300 mg capsule 600 mg PO TID PRN Pain #180 caps 04/15/22 citalopram 20 mg tablet 20 mg PO QAM #90 tabs 05/10/22 fluticasone propionate 50 1 - 2 spray intranasal BID #16 05/17/22 mcg/actuation nasal grams spray,suspension Results & Data (ED) Vital Signs Vital Signs - 24 hr 05/31/22 11:33 05/31/22 11:50 05/31/22 13:00 Temperature 36.4 C L Temperature Source Temporal Artery Scan Pulse Rate 92 H Pulse Rate [Apical] 87 Pulse Rhythm Regular Pulse Rhythm [Apical] Regular Pulse Strength Normal Pulse Strength [Apical] Normal Respiratory Rate 20 19 Respiratory Effort / Characteristics Non-Labored Spontaneous Non-Labored Respiratory Depth Normal Normal Respiratory Pattern Regular Regular Blood Pressure 126/88 Blood Pressure [Left Arm] 129/83 Blood Pressure Mean 100 Blood Pressure Mean [Left Arm] 98 Blood Pressure Position Sitting Blood Pressure Position [Left Arm] Lying Pulse Oximetry 96 97 97 Oxygen Delivery Method Room Air Room Air Room Air Sepsis Recent Fever Within 48 Hours No Sepsis New/Unexplained Change in Mental Status No Sepsis Action Taken by Nursing No Action Required 05/31/22 13:00 05/31/22 15:00 Temperature Temperature Source Pulse Rate Pulse Rate [Apical] 74 67 Pulse Rhythm Pulse Rhythm [Apical] Regular Pulse Strength Pulse Strength [Apical] Normal Respiratory Rate 16 16 Respiratory Effort / Characteristics Non-Labored Non-Labored Spontaneous Respiratory Depth Normal Normal Respiratory Pattern Regular Regular Blood Pressure Blood Pressure [Left Arm] 161/99 H 160/99 H Blood Pressure Mean Blood Pressure Mean [Left Arm] 119 119 Blood Pressure Position Blood Pressure Position [Left Arm] Lying Pulse Oximetry 97 97 Oxygen Delivery Method Room Air Room Air Sepsis Recent Fever Within 48 Hours Sepsis New/Unexplained Change in Mental Status Sepsis Action Taken by [facility] Medications Current Medication List: was personally reviewed by me Laboratory Data Attestation: I reviewed the patient's lab results. Result diagrams: 05/31/22 11:49 05/31/22 11:49 Lab Results 05/31/22 05/31/22 05/31/22 Range/Units 11:49 11:49 11:49 WBC 11.27 H (4.8-10.8) K/ul RBC 4.82 (4.63-6.08) M/uL Hgb 14.6 (14.0-18.0) g/dl Hct 43.1 (40.1-51.0) % MCV 89.4 (80.0-100.0) fL MCH 30.3 (25.0-34.0) pg MCHC 33.9 (32.0-36.0) g/dL RDW Std Deviation 47.0 H (36.4-46.3) fL RDW Coeff of Dorothy 14.4 (11.5-14.5) % Plt Count 258 (130-400) K/uL MPV 11.2 (9.4-12.4) fL Immature Gran % (Auto) 0.4 % Neut % (Auto) 72.7 % Lymph % (Auto) 15.9 % Pierce % (Auto) 10.4 % Eos % (Auto) 0.1 % Baso % (Auto) 0.5 % Neut # (Auto) 8.19 H (1.4-6.5) K/uL Lymph # (Auto) 1.79 (1.2-3.4) K/uL Pierce # (Auto) 1.17 H (0.24-0.82) K/uL Eos # (Auto) 0.01 (0-0.50) K/uL Baso # (Auto) 0.06 (0-0.2) K/uL Immature Gran # (Auto) 0.05 H (0.00-0.02) K/uL Sodium 137 (136-145) mmol/L Potassium 4.5 (3.5-5.1) mmol/L Chloride 105 (98-107) mmol/L Carbon Dioxide 24 (21-32) mmol/L Anion Gap 8 (3-11) BUN 17 (6-23) mg/dl Creatinine 0.75 (0.6-1.4) mg/dl Est Cr Clr Drug Dosing 107.4 ml/min Est GFR ( Amer) 117.2 ml/min Est GFR (Non-Af Amer) 101.1 ml/min BUN/Creatinine Ratio 22.7 H (10-20) Glucose 114 H (70-99(Fasting)) mg/dl Calcium 9.5 (8.5-10.1) mg/dl Magnesium 1.9 (1.7-2.4) mg/dl Total Bilirubin 0.7 (0.2-1.0) mg/dl AST 25 (13-39) U/L ALT 27 (7-52) U/L Alkaline Phosphatase 79 (34-104) U/L Troponin I High Sens 6.2 (0-20) pg/ml Total Protein 7.1 (6.0-8.3) gm/dl Albumin 4.2 (3.4-5.0) gm/dl Globulin 2.9 (2.5-4.0) gm/dl Albumin/Globulin Ratio 1.4 (0.9-2) Lipase 201 H (11-82) U/L SARS-CoV-2, RNA, NAAT (NEGATIVE) 05/31/22 Range/Units 16:32 WBC (4.8-10.8) K/ul RBC (4.63-6.08) M/uL Hgb (14.0-18.0) g/dl Hct (40.1-51.0) % MCV (80.0-100.0) fL MCH (25.0-34.0) pg MCHC (32.0-36.0) g/dL RDW Std Deviation (36.4-46.3) fL RDW Coeff of Dorothy (11.5-14.5) % Plt Count (130-400) K/uL MPV (9.4-12.4) fL Immature Gran % (Auto) % Neut % (Auto) % Lymph % (Auto) % Pierce % (Auto) % Eos % (Auto) % Baso % (Auto) % Neut # (Auto) (1.4-6.5) K/uL Lymph # (Auto) (1.2-3.4) K/uL Pierce # (Auto) (0.24-0.82) K/uL Eos # (Auto) (0-0.50) K/uL Baso # (Auto) (0-0.2) K/uL Immature Gran # (Auto) (0.00-0.02) K/uL Sodium (136-145) mmol/L Potassium (3.5-5.1) mmol/L Chloride (98-107) mmol/L Carbon Dioxide (21-32) mmol/L Anion Gap (3-11) BUN (6-23) mg/dl Creatinine (0.6-1.4) mg/dl Est Cr Clr Drug Dosing ml/min Est GFR ( Amer) ml/min Est GFR (Non-Af Amer) ml/min BUN/Creatinine Ratio (10-20) Glucose (70-99(Fasting)) mg/dl Calcium (8.5-10.1) mg/dl Magnesium (1.7-2.4) mg/dl Total Bilirubin (0.2-1.0) mg/dl AST (13-39) U/L ALT (7-52) U/L Alkaline Phosphatase (34-104) U/L Troponin I High Sens (0-20) pg/ml Total Protein (6.0-8.3) gm/dl Albumin (3.4-5.0) gm/dl Globulin (2.5-4.0) gm/dl Albumin/Globulin Ratio (0.9-2) Lipase (11-82) U/L SARS-CoV-2, RNA, NAAT NEGATIVE (NEGATIVE) Administered Medications Discontinued Medications Diphenhydramine HCl (Diphenhydramine 50 Mg/Ml Vial) 50 mg IV NOW STA Stop: 05/31/22 12:18 Last Admin: 05/31/22 12:35 Dose: 50 mg Documented By: OAM Prochlorperazine (Compazine) 2 mls @ 1 mls/min IV ONE ONE Stop: 05/31/22 12:18 Last Admin: 05/31/22 12:35 Dose: 1 mls/min Documented By: OAM Sodium Chloride (Nss 1000ml) 2,000 mls @ 999 mls/hr IV .Q2H1M ONE Stop: 05/31/22 14:17 Last Infusion: 05/31/22 14:29 Dose: 0 mls/hr Documented By: Admin: 05/31/22 12:36 Dose: 999 mls/hr Documented By: IMELDA Promethazine HCl (Phenergan) 25 mg in 51 mls @ 204 mls/hr IV NOW STA Stop: 05/31/22 14:00 Last Infusion: 05/31/22 14:29 Dose: 0 mls/hr Documented By: Admin: 05/31/22 13:53 Dose: 204 mls/hr Documented By: IMELDA Pantoprazole Sodium 40 mg/ (Syringe) 10 mls @ 5 mls/min IV NOW ONE Stop: 05/31/22 14:42 Last Admin: 05/31/22 14:56 Dose: 5 mls/min Documented By: COLTEN Sodium Chloride (Nss) 500 mls @ 999 mls/hr IV .Q31M ONE Stop: 05/31/22 15:11 Last Infusion: 05/31/22 15:43 Dose: 0 mls/hr Documented By: Admin: 05/31/22 14:56 Dose: 999 mls/hr Documented By: COLTEN Imaging Data Radiologist's Impression: Chest/Abdomen X-ray 05/31/22 12:17 XR abdomen 2V w PA chest HISTORY: 56 years-old Male prior esophagectomy/pull through; n/v ab/chest maddie acute chest and abdominal pain with nausea and vomiting COMPARISON: Chest radiograph 04/29/2022, CTA abdomen and pelvis 04/29/2020 exam TECHNIQUE: PA view of the chest with erect and supine views of the abdomen FINDINGS: The cardiomediastinal and hilar silhouettes are unchanged. No pneumothorax, pleural effusion, airspace consolidation or overt pulmonary edema. Degenerative changes of the shoulders and spine. Surgical clips of the upper abdomen and mediastinum. Cervical spinal fusion hardware. Surgical clips of the abdomen. Nonobstructive bowel gas pattern. No definite urolith identified. Pelvic basin phlebolith. Degenerative changes of the spine. IMPRESSION: 1. No acute process of the chest. 2. Nonobstructive bowel gas pattern. ACT 112: Negative or not required by law. The above report was generated using voice recognition software. It may contain grammatical, syntax or spelling errors. Electronically signed by: Mustapha Madrid M.D. 05/31/2022 1:32 PM Discharge Plan Visit Data Chief Complaint: Vomiting Stated Complaint: NAUSEA, VOMITING SINCE THUSDAT ED Provider: Christian Aaron Discharge Problem: Elevated lipase, Abdominal pain, Nausea & vomiting, Acute dehydration Patient Disposition: Admitted As Inpatient Forms Stand Alone Forms: My [facility] Prescriptions Prescriptions: No Action lisinopril 20 mg tablet 20 mg PO QAM Qty: 30 11RF clonidine HCl 0.1 mg tablet 0.1 mg PO BID PRN (Reason: Anxiety) Qty: 60 3RF citalopram 20 mg tablet 20 mg PO QAM Qty: 90 3RF fluticasone propionate 50 mcg/actuation spray,suspension 1 - 2 spray intranasal BID Qty: 16 5RF Rx Instructions: administer into each nostril gabapentin 300 mg capsule 600 mg PO TID PRN (Reason: Pain) Qty: 180 11RF dexlansoprazole 60 mg capsule,biphase delayed releas 60 mg PO DAILY Qty: 90 3RF buprenorphine-naloxone 8-2 mg Tablet, Sublingual 1 tab SUBLINGUAL BID cyanocobalamin (vitamin B-12) 500 mcg Tablet 1,000 mcg PO QAM Qty: 90 3RF Rx Instructions: purchase over the counter ondansetron 4 mg tablet,disintegrating 4 mg PO Q8H PRN (Reason: nausea and vomiting) Qty: 10 0RF sucralfate 100 mg/mL suspension 1 g PO ACHS PRN (Reason: Acid Reflux) famotidine [Pepcid] 40 mg tablet 20 mg PO QPM Motegrity 2 mg tablet 2 mg PO DAILY Referrals Referrals: Rafiq Boucher III, MD [Primary Care Provider] -
[2022-05-31] MEDS ORDERED: diphenhydrAMINE 50 MG/ML VIAL IV STA (12:17)
[2022-05-31] MEDS ORDERED: SODIUM CHLORIDE 0.9% 1000ML 2,000 ML IV ONE (12:17)
[2022-05-31] MEDS ORDERED: PROCHLORPERAZINE 2 ML IV ONE (12:17)
[2022-05-31 12:36] LABS: Basophils # (auto) 0.06 K/uL (0-0.2); Basophils % (auto) 0.5 %; Eosinophils # (auto) 0.01 K/uL (0-0.50); Eosinophils % (auto) 0.1 %; Hematocrit (blood only) 43.1 % (40.1-51.0); Hemoglobin 14.6 g/dl (14.0-18.0); Immature Granulocytes # (auto) 0.05 K/uL (0.00-0.02); Immature Granulocytes % (auto) 0.4 %; Lymphocytes # (auto) 1.79 K/uL (1.2-3.4); Lymphocytes % (auto) 15.9 %; Mean Corpuscular Hemoglobin 30.3 pg (25.0-34.0); Mean Corpuscular Hgb Conc 33.9 g/dL (32.0-36.0); Mean Corpuscular Volume 89.4 fL (80.0-100.0); Mean Platelet Volume 11.2 fL (9.4-12.4); Monocytes # (auto) 1.17 K/uL (0.24-0.82); Monocytes % (auto) 10.4 %; Neutrophils # (auto) 8.19 K/uL (1.4-6.5); Neutrophils % (auto) 72.7 %; Platelet Count 258 K/uL (130-400); RDW Coefficient of Variation 14.4 % (11.5-14.5); Red Blood Count 4.82 M/uL (4.63-6.08); White Blood Count 11.27 K/ul (4.8-10.8)
[2022-05-31 12:55] LABS: Albumin Globulin Ratio 1.4 (0.9-2); Albumin Level 4.2 gm/dl (3.4-5.0); BUN Creatinine Ratio 22.7 (10-20); Bilirubin,Total 0.7 mg/dl (0.2-1.0); Calcium 9.5 mg/dl (8.5-10.1); Creatinine Clr Calc Pharmacy 107.4 ml/min; Est GFR (African American) 117.2 ml/min; Est GFR (Non-African American) 101.1 ml/min; Globulin 2.9 gm/dl (2.5-4.0); Potassium 4.5 mmol/L (3.5-5.1); Total Protein 7.1 gm/dl (6.0-8.3)
[2022-05-31 12:56] LABS: Troponin I High Sensitivity 6.2 pg/ml (0-20)
--- NOTE | 2022-05-31 13:33 | XRay Report ---
XR abdomen 2V w PA chest HISTORY: 56 years-old Male prior esophagectomy/pull through; n/v ab/chest maddie acute chest and abdomi nal pain with nausea and vomiting COMPARISON: Chest radiograph 04/29/2022, CTA abdomen and pelvis 04/29/2020 exam TECHNIQUE: PA view of the chest with erect and supine views of the abdomen FINDINGS: The cardiomediastinal and hilar silhouettes are unchanged. No pneumothorax, pleural effusion, airspac e consolidation or overt pulmonary edema. Degenerative changes of the shoulders and spine. Surgical c lips of the upper abdomen and mediastinum. Cervical spinal fusion hardware. Surgical clips of the abdomen. Nonobstructive bowel gas pattern. No definite urolith identified. Pelv ic basin phlebolith. Degenerative changes of the spine. IMPRESSION: 1. No acute process of the chest. 2. Nonobstructive bowel gas pattern. ACT 112: Negative or not required by law. The above report was generated using voice recognition software. It may contain grammatical, syntax o r spelling errors. Electronically signed by: Mustapha Madrid M.D. 05/31/2022 1:32 PM
[2022-05-31] MEDS ORDERED: PROMETHAZINE 25 MG/51 ML BAG IV STA (13:46)
[2022-05-31] MEDS ORDERED: PANTOprazole 40 MG in SYRINGE 0 ML IV ONE (14:41)
[2022-05-31] MEDS ORDERED: SODIUM CHLORIDE 0.9% 500 ML IV ONE (14:41)
--- NOTE | 2022-05-31 15:23 | Electrocardiogram Report ---
Test Reason : Blood Pressure : / mmHG Vent. Rate : 072 BPM Atrial Rate : 072 BPM P-R Int : 148 ms QRS Dur : 094 ms QT Int : 370 ms P-R-T Axes : 057 012 029 degrees QTc Int : 405 ms Normal sinus rhythm Voltage criteria for left ventricular hypertrophy Abnormal ECG When compared with ECG of 30-APR-2022 06:04, No significant change was found Confirmed by Mike Vergara ([id number]) on 05/31/2022 3:23:42 PM Referred By: NO PCP Confirmed By:Jose Vergara
--- NOTE | 2022-05-31 15:46 | History & Physical Report ---
Date of Service May 31, 2022 Assessment & Plan (1) Intractable nausea and vomiting: Plan: - Patient has longstanding history of intractable nausea and vomiting, which is thought to be related to bowel habit irregularity due to his use of Suboxone. He is scheduled to have a surveillance single balloon enteroscopy performed in the future. - Lipase elevated at 201, may be reactive in setting of ongoing nausea and vomiting, however meets criteria for pancreatitis with abdominal pain characteristic of it plus elevated lipase, therefore will treat as such. - However, should be noted that patient's lipase has consistently been in this range for the past several months, and for such he has had extensive work-up including colonoscopy, EGD, and EUS given elevated lipase and all were reportedly normal per GI notes. - For now, n.p.o. except for ice chips, sips, may take vital meds that cannot be converted to IV. IVF resuscitation, antiemetics. Need to avoid opioids for pain control, as he has longstanding history of chronic constipation is difficult to manage for which he sees GI, also takes Suboxone for chronic pain. - Can attempt clear liquid diet when n/v better controlled. 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 Griffin while he is in the [facility]. - Patient specifically requesting we do not obtain further imaging, as this feels very much like his regular abdominal pain and he has had multiple CTs due to his frequent admissions. Given the chronic nature and further work-up with GI, as well as a chest and abdomen x-ray without concerning findings, it seems reasonable to hold off on further imaging unless patient does not improve or acutely worsens over the next 24 hours. (2) Elevated lipase: Plan: - As above. - Repeat lipase in AM. (3) History of esophageal cancer: Plan: - S/P esophagectomy with gastric pull-up in 2009, now Murry's esophagus. -Continue PPI and Pepcid, switch to IV formulation. (4) GERD (gastroesophageal reflux disease): Plan: - IV PPI and Pepcid as above. (5) Chronic pain: Plan: - Chronic cervical disc disease, recently seen by neurosurgery on 05/23 he has been referred to physical therapy. - Continue Suboxone. (6) Constipation: Plan: - Continue Motegrity 2 mg daily. - Will order MiraLAX and Dulcolax as needed. (7) Hypertension: Plan: - Continue lisinopril 5 mg daily. (8) Depression: Plan: - Continue Celexa. (9) Anemia: Plan: - Hgb 14.6, slightly higher than his baseline, may be due to high concentration. No concerns for acute blood loss at this time. Given the IVF resuscitation he will be getting for the next 24 hours, suspect this will drop by 1-2 points on a.m. labs. - Occasionally receives iron transfusions at cancer center. - Continue to follow on daily CBC. Plan - Med/surg for observation. - SCDs, Lovenox for VTE ppx. - Full Code. History of Present Illness Chief Complaint: Intractable nausea vomiting for 24 hours Primary Care Provider: Rafiq Boucher MD Shahbaz Arechiga is a 56-year-old male with a past medical history significant for esophageal cancer s/p esophagectomy and pull-through, prostate cancer, renal cell carcinoma, cervcial disc disease, chronic nausea, vomiting and abdominal pain, GERD, chronic constipation, hypertension, iron deficiency anemia, and depression who presents today with ongoing nausea and vomiting for 24 hours. Patient states at the beginning of the week he felt very rundown, fatigued, had headaches, and subjective fevers at home, although did not check his temperature. Yesterday morning, he began vomiting nonbloody emesis, approximately 20-30 episodes/day he estimates. He has tried taking his meclizine and Zofran he has at home, without any help. He is not keeping any p.o. intake down, except for little sips of water. He is still urinating, and he is having bowel movements that are regular for him. He has chronic constipation and has had extensive work-up for this, he reports that he is gone in the last 2 days, without blood, although stools may appear a little engine boss than usual. He has developed abdominal pain after 24 hours of vomiting that does not radiate. In ED, he is hypertensive 161/99, otherwise vital signs within normal limits. Labs significant for elevated WBC 11.27, lipase 201. Otherwise, largely unremarkable his electrolytes are within normal limits, renal function is at baseline, hsTrop 6.2. X-ray of chest and abdomen did not show any acute process chest, nonobstructive bowel gas pattern seen. ED Course: 2.5L NSS, promethazine, prochlorperazine, PPI, Benadryl. Allergies Allergy/AdvReac Type Severity Reaction Status Date / Time No Known Allergies Allergy Verified 05/02/22 09:11 Home Medications Medication Instructions Recorded Confirmed Type buprenorphine 8 mg-naloxone 2 mg 1 tab sublingual BID 01/09/21 05/31/22 History sublingual tablet dexlansoprazole 60 mg 60 mg PO DAILY #90 caps 09/19/21 05/31/22 Rx capsule,biphase delayed release lisinopril 20 mg tablet 20 mg PO QAM #30 tabs 10/01/21 05/31/22 Rx famotidine 40 mg tablet (Pepcid) 20 mg PO QPM 11/27/21 05/31/22 History sucralfate 100 mg/mL oral 1 g PO ACHS PRN Acid Reflux 11/27/21 05/31/22 History suspension cyanocobalamin (vitamin B-12) 500 1,000 mcg PO QAM #90 tabs 03/08/22 05/31/22 Rx mcg tablet ondansetron 4 mg disintegrating 4 mg PO Q8H PRN nausea and 03/08/22 05/31/22 Rx tablet vomiting #10 tabs clonidine HCl 0.1 mg tablet 0.1 mg PO BID PRN Anxiety #60 tabs 04/10/22 05/31/22 Rx gabapentin 300 mg capsule 600 mg PO TID PRN Pain #180 caps 04/15/22 05/31/22 Rx citalopram 20 mg tablet 20 mg PO QAM #90 tabs 05/10/22 05/31/22 Rx fluticasone propionate 50 1 - 2 spray intranasal BID #16 05/17/22 05/31/22 Rx mcg/actuation nasal grams spray,suspension prucalopride 2 mg tablet 2 mg PO DAILY 05/31/22 05/31/22 History (Motegrity) Past Med/Surg History Medical History Abnormal weight loss Acute dehydration 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 dx'ed with esophageal cancer in 2007 EGD in 10/2020 did show Barretts with esophagitis and ulcers - put on PPI Candidal esophagitis S/p treatment after EGD Chronic pain Elevated lipase Esophageal cancer 2007 s/p chemo and radiation Fissure, anal Pt unsure if still present- getting repeat colonoscopy in the future Fracture of multiple thoracic vertebrae 25 years ago Gastro-esophageal reflux disease with esophagitis Uncontrolled Hepatitis C [id number] Intractable nausea and vomiting Iron deficiency anemia Lumbago Major depressive disorder Nausea & vomiting Nausea & vomiting Restless leg No current issues 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 Withdrawal from opioids Was on increased opioids in the past secondary to chronic back pain- weaned off pain medications- was taking herbal supplement (Kraton)= now using Suboxone to taper off supplement Surgical History H/O radical prostatectomy History of anesthesia reaction pt states he woke up during 2 EGD procedures and during shoulder sx History of colonoscopy History of cystoscopy History of esophagectomy 2007 History of esophagogastroduodenoscopy (EGD) recent 10/31/2020 History of nephrectomy, left History of repair of rotator cuff right and left shoulder History of right knee surgery meniscectomy Hx laparoscopic cholecystectomy Status post surgery neck surgery with hardware Family History Father Hypertension Myocardial infarction Coronary heart disease Mother Cancer Skin and Lung Brother Hypertension Other No family history of adverse response to anesthesia Denies family history of Ovarian cancer Prostate cancer Breast cancer Colorectal cancer Social History Smoking Status: Current some day smoker Tobacco Type: Cigarettes Years Smoked: 10; Second Hand Exposure: No; Hx Alcohol Use: No Hx Substance Use: No Preferred Language: Khmer Communication Ability: Effective Visual Impairment: No Limitations Hearing Ability: Normal Computer Systems Architect Required: No Beliefs That Will Affect Care: None marital status: Current Living Situation: Spouse current occupational status: employed 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 How many Children do You have: 2 Feels Safe at Home: Yes Childhood Exposure to Second-Hand Smoke: Yes caffeine: Yes Dental Care, Regularly: Yes Physical Activity Frequency: Daily Seatbelt Use: always Sunscreen Use: No Assistive Devices: None Review of Systems Review of Systems: Constitutional: fatigue, feeling warm for the past few days, anorexia x1 day; no weakness, myalgias, night sweats Eyes: No diplopia, no worsening or blurred vision ENT: normal hearing, no trouble swallowing Respiratory: No cough, sputum, dyspnea at rest or on exertion Cardiovascular: No chest pain, tightness or palpitations Abdomen: nausea, nonbloody emesis x 1 day with b/l upper abdominal pain; no hematemesis, diarrhea, constipation, melena, hematochezia : Denies dysuria, hematuria, increased urgency/frequency, urinary retention Musculoskeletal: No joint pain, calf pain, swelling Neurologic: No weakness, numbness/tingling, or balance problems Psychiatric: No anxiety or depression Skin: No rash or itch Physical Exam Physical Exam: General: awake, alert, no apparent distress Head: Normocephalic, atraumatic ENT: PERRL, EOMI, no pharyngeal exudate, mucous membranes dry Chest: Clear to auscultation, on room air, no adventitious breath sounds Cardiac: Regular rate and rhythm, no murmur, no JVD, normal peripheral pulses, good capillary refill Abdominal: NABS x 4 quadrants, soft, mildly TTP across upper quadrants, no re bound, guarding or tenderness Extremities: Normal inspection, no peripheral edema or erythema, calfs nontender to palpation Psych: Normal mood and affect Neuro: AAO x 3, strength intact bilaterally and rated 5/5, no motor deficits, speech is clear, no peripheral sensory deficits Skin: no rash or erythema Results & Data Results & Data ([facility]) Vital Signs (Past 12 Hours) Vital Signs Temp Pulse Pulse Resp BP BP Pulse Ox 05/31/22 13:00 74 16 161/99 H 97 05/31/22 13:00 97 05/31/22 11:50 87 19 129/83 97 05/31/22 11:33 36.4 C L 92 H 20 126/88 96 O2 Del Method 05/31/22 13:00 Room Air 05/31/22 13:00 Room Air 05/31/22 11:50 Room Air 05/31/22 11:33 Room Air Laboratory Results Abnormal lab results 05/31/22 05/31/22 Range/Units 11:49 11:49 WBC 11.27 H (4.8-10.8) K/ul RDW Std Deviation 47.0 H (36.4-46.3) fL Neut # (Auto) 8.19 H (1.4-6.5) K/uL Gila # (Auto) 1.17 H (0.24-0.82) K/uL Immature Gran # (Auto) 0.05 H (0.00-0.02) K/uL BUN/Creatinine Ratio 22.7 H (10-20) Glucose 114 H (70-99(Fasting)) mg/dl Lipase 201 H (11-82) U/L Diagnostic Findings Chest/Abdomen X-ray 05/31/22 12:17 XR abdomen 2V w PA chest HISTORY: 56 years-old Male prior esophagectomy/pull through; n/v ab/chest maddie acute chest and abdominal pain with nausea and vomiting COMPARISON: Chest radiograph 04/29/2022, CTA abdomen and pelvis 04/29/2020 exam TECHNIQUE: PA view of the chest with erect and supine views of the abdomen FINDINGS: The cardiomediastinal and hilar silhouettes are unchanged. No pneumothorax, pleural effusion, airspace consolidation or overt pulmonary edema. Degenerative changes of the shoulders and spine. Surgical clips of the upper abdomen and mediastinum. Cervical spinal fusion hardware. Surgical clips of the abdomen. Nonobstructive bowel gas pattern. No definite urolith identified. Pelvic basin phlebolith. Degenerative changes of the spine. IMPRESSION: 1. No acute process of the chest. 2. Nonobstructive bowel gas pattern. ACT 112: Negative or not required by law. The above report was generated using voice recognition software. It may contain grammatical, syntax or spelling errors. Electronically signed by: Mustapha Madrid M.D. 05/31/2022 1:32 PM ECG Additional Comments: Normal sinus rhythm Voltage criteria for left ventricular hypertrophy Abnormal ECG When compared with ECG of 30-APR-2022 06:04, No significant change was found Confirmed by Miek Vergara ([id number]) on 05/31/2022 3:23:42 PM. Code Status & VTE Plan Code Status Full Code. PG Care Time/CCT Total # of Minutes Spent Total Time Spent with Patient: Total time spent is greater than 50% in coordination of care (as documented) at patient's floor/unit and/or counseling patient: Coding Level of Care Code INT OBSERVATION CARE 50M LVL 2 Diagnoses Intractable nausea and vomiting R11.2 Elevated lipase R74.8 History of esophageal cancer Z85.01 GERD (gastroesophageal reflux disease) K21.9 Chronic pain G89.29 Constipation K59.00 Hypertension I10 Depression F32.A Anemia D64.9 Anemia type: unspecified type (1) Anemia Anemia type: unspecified type Qualified Code(s): D64.9 - Anemia, unspecified
[2022-05-31] MEDS ORDERED: PROCHLORPERAZINE 5 MG in SYRINGE 4 ML IV PRN (18:37)
[2022-05-31] MEDS ORDERED: POLYETHYLENE (MIRALAX) 17 GM PACK PO PRN (18:37)
[2022-05-31] MEDS ORDERED: bisacodyL 5 MG TABEC PO PRN (18:37)
[2022-05-31] MEDS: LACTATED RINGER'S 1,000 ML IV SCH (19:10)
[2022-05-31] MEDS: ENOXAPARIN INJ 40 MG/0.4 ML SYR SQ SCH (19:10)
[2022-05-31] MEDS: PANTOprazole 40 MG in SYRINGE 0 ML IV SCH (20:10)
[2022-05-31] MEDS: BUPRENORPHINE/NALOXONE 8/2 MG TAB SL SCH (20:10)
[2022-05-31] MEDS: FAMOTIDINE 20 MG in SYRINGE 3 ML IV SCH (20:10)
[2022-06-01] MEDS: DICLOFENAC SOD 1% GEL 100 GM TUBE EXT PRN ×3 (00:48→20:34)
[2022-06-01] MEDS: LACTATED RINGER'S 1,000 ML IV SCH (01:58)
[2022-06-01 06:53] LABS: Basophils # (auto) 0.07 K/uL (0-0.2); Basophils % (auto) 0.9 %; Eosinophils # (auto) 0.06 K/uL (0-0.50); Eosinophils % (auto) 0.8 %; Hematocrit (blood only) 36.7 % (40.1-51.0); Hemoglobin 12.1 g/dl (14.0-18.0); Immature Granulocytes # (auto) 0.02 K/uL (0.00-0.02); Immature Granulocytes % (auto) 0.3 %; Lymphocytes # (auto) 2.56 K/uL (1.2-3.4); Lymphocytes % (auto) 33.8 %; Mean Corpuscular Hemoglobin 29.9 pg (25.0-34.0); Mean Corpuscular Volume 90.6 fL (80.0-100.0); Mean Platelet Volume 10.8 fL (9.4-12.4); Monocytes # (auto) 0.84 K/uL (0.24-0.82); Monocytes % (auto) 11.1 %; Neutrophils # (auto) 4.03 K/uL (1.4-6.5); Neutrophils % (auto) 53.1 %; Platelet Count 197 K/uL (130-400); RDW Standard Deviation 46.9 fL (36.4-46.3); Red Blood Count 4.05 M/uL (4.63-6.08); White Blood Count 7.58 K/ul (4.8-10.8)
[2022-06-01 07:25] LABS: Albumin Globulin Ratio 1.6 (0.9-2); Albumin Level 3.4 gm/dl (3.4-5.0); BUN Creatinine Ratio 16.7 (10-20); Bilirubin,Total 0.7 mg/dl (0.2-1.0); Calcium 8.5 mg/dl (8.5-10.1); Est GFR (African American) 123.5 ml/min; Est GFR (Non-African American) 106.6 ml/min; Globulin 2.1 gm/dl (2.5-4.0); Magnesium 1.6 mg/dl (1.7-2.4); Potassium 3.9 mmol/L (3.5-5.1); Total Protein 5.5 gm/dl (6.0-8.3)
[2022-06-01] MEDS: PANTOprazole 40 MG in SYRINGE 0 ML IV SCH ×2 (08:17→20:22)
[2022-06-01] MEDS: lisinopril 20 MG TAB PO SCH (09:01)
[2022-06-01] MEDS: BUPRENORPHINE/NALOXONE 8/2 MG TAB SL SCH ×2 (09:01→20:21)
[2022-06-01] MEDS: FAMOTIDINE 20 MG in SYRINGE 3 ML IV SCH ×2 (09:01→20:22)
[2022-06-01] MEDS: MAGNESIUM SULFATE / D5W 1 GM/100 ML BAG IV SCH ×2 (09:01→10:11)
[2022-06-01] MEDS: CITALOPRAM 20 MG TAB PO SCH (09:02)
[2022-06-01] MEDS: SODIUM CHLORIDE 0.9% 1000ML 1,000 ML IV SCH (10:11)
[2022-06-01] MEDS: ONDANSETRON INJ 2 MG/ML 2 ML VIAL IV PRN ×2 (13:26→20:21)
--- NOTE | 2022-06-01 14:00 | Gastrointestinal Consultation ---
Date of Consultation June 01, 2022 Assessment & Plan (1) Nausea & vomiting: (2) Abdominal pain: (3) Chronic constipation: Plan chronic constipation with acute n/v and abd pains recs: NPO, once symptoms improve can begin advancing diet as tolerated IVFs, antiemetics prn continue ppi obtain KUB now to assess stool burden start lactulose 15 ml BID while inpatient for his chronic constipation Thank you for allowing me to participate in the care of this patient History of Present Illness Attending Physician: Janeth Reyes MD History of Present Illness 56 yo male with hx esoph cancer s/p esophagectomy and pull through, renal cell carcinoma, prostate cancer, gerd, chronic constipation here with nausea and vomiting. He was here with similar issues not long ago, sees Dr. Griffin as an outpatient, and has had significant workup including EGD and EUS which were unremarkable. capsule endoscopy had shown a presumed polyp and patient is to get a balloon enteroscopy in the near future. Regarding his n/v, it started yesterday with several episodes. zofran did not help. regarding his chronic constipation, there [facility]. CBC and CMP reviewed Allergies Allergy/AdvReac Type Severity Reaction Status Date / Time No Known Allergies Allergy Verified 05/02/22 09:11 Home Medications Medication Instructions Recorded Confirmed Type buprenorphine 8 mg-naloxone 2 mg 1 tab sublingual BID 01/09/21 05/31/22 History sublingual tablet dexlansoprazole 60 mg 60 mg PO DAILY #90 caps 09/19/21 05/31/22 Rx capsule,biphase delayed release lisinopril 20 mg tablet 20 mg PO QAM #30 tabs 10/01/21 05/31/22 Rx famotidine 40 mg tablet (Pepcid) 20 mg PO QPM 11/27/21 05/31/22 History sucralfate 100 mg/mL oral 1 g PO ACHS PRN Acid Reflux 11/27/21 05/31/22 History suspension cyanocobalamin (vitamin B-12) 500 1,000 mcg PO QAM #90 tabs 03/08/22 05/31/22 Rx mcg tablet ondansetron 4 mg disintegrating 4 mg PO Q8H PRN nausea and 03/08/22 05/31/22 Rx tablet vomiting #10 tabs clonidine HCl 0.1 mg tablet 0.1 mg PO BID PRN Anxiety #60 tabs 04/10/22 05/31/22 Rx gabapentin 300 mg capsule 600 mg PO TID PRN Pain #180 caps 04/15/22 05/31/22 Rx citalopram 20 mg tablet 20 mg PO QAM #90 tabs 05/10/22 05/31/22 Rx fluticasone propionate 50 1 - 2 spray intranasal BID #16 05/17/22 05/31/22 Rx mcg/actuation nasal grams spray,suspension prucalopride 2 mg tablet 2 mg PO DAILY 05/31/22 05/31/22 History (Motegrity) Patient History Medical History Abnormal weight loss Acute dehydration 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 dx'ed with esophageal cancer in 2007 EGD in 10/2020 did show Barretts with esophagitis and ulcers - put on PPI Candidal esophagitis S/p treatment after EGD Chronic pain Elevated lipase Esophageal cancer 2007 s/p chemo and radiation Fissure, anal Pt unsure if still present- getting repeat colonoscopy in the future Fracture of multiple thoracic vertebrae 25 years ago Gastro-esophageal reflux disease with esophagitis Uncontrolled Hepatitis C [id number] Intractable nausea and vomiting Iron deficiency anemia Lumbago Major depressive disorder Nausea & vomiting Nausea & vomiting Restless leg No current issues 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 Withdrawal from opioids Was on increased opioids in the past secondary to chronic back pain- weaned off pain medications- was taking herbal supplement (Kraton)= now using S uboxone to taper off supplement Surgical History H/O radical prostatectomy History of anesthesia reaction pt states he woke up during 2 EGD procedures and during shoulder sx History of colonoscopy History of cystoscopy History of esophagectomy 2007 History of esophagogastroduodenoscopy (EGD) recent 10/31/2020 History of nephrectomy, left History of repair of rotator cuff right and left shoulder History of right knee surgery meniscectomy Hx laparoscopic cholecystectomy Status post surgery neck surgery with hardware Family History Father Hypertension Myocardial infarction Coronary heart disease Mother Cancer Skin and Lung Brother Hypertension Other No family history of adverse response to anesthesia Denies family history of Ovarian cancer Prostate cancer Breast cancer Colorectal cancer Social History Smoking Status: Never smoker Tobacco Type: Cigarettes Years Smoked: 10; Second Hand Exposure: No; Hx Alcohol Use: No Hx Substance Use: Yes Substance Use Type Other:: SUBOXONE Preferred Language: [place] Communication Ability: Effective Visual Impairment: No Limitations Hearing Ability: Normal Nutrition Helper Required: No Beliefs That Will Affect Care: None marital status: Current Living Situation: Spouse current occupational status: employed 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 How many Children do You have: 2 Other Information That Helps Us Care for You: No Feels Safe at Home: Yes Safety Concerns: Feels Safe At This Time Childhood Exposure to Second-Hand Smoke: Yes caffeine: Yes Dental Care, Regularly: Yes Physical Activity Frequency: Daily Seatbelt Use: always Sunscreen Use: No Assistive Devices: None Review of Systems Constitutional: no fever, no chills and no weight loss Eyes: as per Subjective / HPI Ear, Nose, Mouth, Throat: as per Subjective / HPI Respiratory: no dyspnea and no dyspnea on exertion Cardiovascular: no chest pain and no palpitations Gastrointestinal: as per Subjective / HPI Musculoskeletal: no joint pain and no swelling Integumentary: no rash and no lesions Neurologic: no numbness and no paresthesia Psychiatric: no depression and no anxiety Endocrine: no fatigue Hematologic / Lymphatic: no easy bleeding and no easy bruising Physical Exam Constitutional: WD/WN, vitals as above Eyes: EOM intact bilaterally Neck: normal visual inspection Respiratory: normal respiratory effort, lungs clear to auscultation Cardiovascular: RRR, no murmur, no edema Gastrointestinal (Abdomen): Inspection/Auscultation: abdomen normal to inspection; abdomen not distended Percussion/Palpation: abdomen soft; abdomen nontender and no hepatosplenomegaly Musculoskeletal: Extremities: no cyanosis Gait: normal gait Skin: no rashes, warm and dry Neurologic: moves all extremities Psychiatric: A+Ox3, euthymic affect Results & Data ([facility]) Vital Signs (Past 12 Hours) Vital Signs Temp Pulse Resp BP Pulse Ox O2 Del Method 06/01/22 07:11 36.8 C 68 16 145/87 H 96 Room Air PG Care Time/CCT Total # of Minutes Spent Total Time Spent with Patient: Total time spent is greater than 50% in coordination of care (as documented) at patient's floor/unit and/or counseling patient: Coding Level of Care Code 76664 Inpt Consult Level 4 Diagnoses Nausea & vomiting R11.2 Abdominal pain R10.9 Chronic constipation K59.09
[2022-06-01] MEDS ORDERED: LACTULOSE SYRUP 10 GM/15 ML BTL 960 ML PO ONE (15:15)
--- NOTE | 2022-06-01 15:18 | XRay Report ---
KUB HISTORY: Generalized Abdominal pain, nausea, vomiting, constipation COMPARISON: Chest and abdominal series 05/31/2022. FINDINGS: The bowel gas pattern is unremarkable. There are no dilated loops of small bowel to suggest an obstruction. No renal calculi. No ureteral calculi. Calcifications in the deep pelvis likely rep resent phleboliths. These remain unchanged. There are surgical clips within the upper to mid abdomen, unchanged. The lung bases appear clear.. No pneumoperitoneum or pneumatosis. IMPRESSION: No evidence for bowel obstruction. ACT 112: Negative or not required by law. Electronically signed by: Shree Murguia M.D. 06/01/2022 3:17 PM
--- NOTE | 2022-06-01 16:29 | Hospitalist Progress Note ---
Date of Service June 01, 2022 Assessment & Plan (1) Intractable nausea and vomiting: Plan: Doing better, clear liquids and advance as tolerated; lactulose added as suggested by GI; KUB not impressive (2) Elevated lipase: Plan: - Appears chronicfollow (3) History of esophageal cancer: Plan: - S/P esophagectomy with gastric pull-up in 2009, now Murry's esophagus. -Continue PPI and Pepcid-keep IV for now (4) GERD (gastroesophageal reflux disease): Plan: - IV PPI and Pepcid as above. (5) Chronic pain: Plan: - Chronic cervical disc disease, recently seen by neurosurgery on 05/23 he has been referred to physical therapy. - Continue Suboxone. (6) Constipation: Plan: - Continue Motegrity 2 mg daily as outpatient (not available here); lactulose added - Will order MiraLAX and Dulcolax as needed. (7) Hypertension: Plan: - Continue lisinopril 5 mg dailypressors reasonable (8) Depression: Plan: - Continue Celexa. (9) Anemia: Plan: - Admission Hgb 14.6, slightly higher than his baseline, may be due to high concentration. No concerns for acute blood loss at this time. Given the IVF resuscitation he will be getting for the next 24 hours, suspect this will drop by 1-2 points on a.m. labs. - Occasionally receives iron transfusions at cancer center. - Continue to follow on daily CBC. Admission and Anticipated Discharge Date Admission Date: May 31, 2022 Subjective Follow-up of presentation with recurrent nausea and vomitingfelt well this a.m. and wanted to start p.o. intake Physical Exam Physical Exam: Constitutional and general: No acute distress, looks biologic age Head and face: No puffiness, atraumatic Eyes: No scleral icterus, extraocular movements normal Neck: Supple, no JVD Musculoskeletal: No acute joint swelling, no bony abnormalities Skin/dermatologic/integument: No rash, no purpura Hematologic and lymphatic: pallor none, no petechia Gastrointestinal/abdomen: Nondistended, soft, nonacute Neurologic: Cranial nerves intact, nonfocal Psychiatry: Awake, alert, pleasant, communicative Cardiovascular: Heart rhythm regular, no rub, no murmur, no gallop Respiratory: Chest movements equal, no use of accessory muscles, no adventitious sounds Extremities: No edema, no cyanosis Results & Data Results & Data ([facility]) Vital Signs (Past 12 Hours) Vital Signs Temp Pulse Resp BP Pulse Ox O2 Del Method 06/01/22 15:12 36.7 C 73 16 143/81 H 96 Room Air 06/01/22 07:11 36.8 C 68 16 145/87 H 96 Room Air Laboratory Results Laboratory Results - last 24 hr 05/31/22 05/31/22 06/01/22 11:49 16:32 06:07 WBC 7.58 RBC 4.05 L Hgb 12.1 L Hct 36.7 L MCV 90.6 MCH 29.9 MCHC 33.0 RDW Std Deviation 46.9 H RDW Coeff of Dorothy 14.0 Plt Count 197 MPV 10.8 Immature Gran % (Auto) 0.3 Neut % (Auto) 53.1 Lymph % (Auto) 33.8 [place] % (Auto) 11.1 Eos % (Auto) 0.8 Baso % (Auto) 0.9 Neut # (Auto) 4.03 Lymph # (Auto) 2.56 [place] # (Auto) 0.84 H Eos # (Auto) 0.06 Baso # (Auto) 0.07 Immature Gran # (Auto) 0.02 Sodium Potassium Chloride Carbon Dioxide Anion Gap BUN Creatinine Est Cr Clr Drug Dosing Est GFR ( Amer) Est GFR (Non-Af Amer) BUN/Creatinine Ratio Glucose Calcium Magnesium 1.9 Total Bilirubin AST ALT Alkaline Phosphatase Total Protein Albumin Globulin Albumin/Globulin Ratio Lipase SARS-CoV-2, RNA, NAAT NEGATIVE 06/01/22 06:07 WBC RBC Hgb Hct MCV MCH MCHC RDW Std Deviation RDW Coeff of Dorothy Plt Count MPV Immature Gran % (Auto) Neut % (Auto) Lymph % (Auto) [place] % (Auto) Eos % (Auto) Baso % (Auto) Neut # (Auto) Lymph # (Auto) [place] # (Auto) Eos # (Auto) Baso # (Auto) Immature Gran # (Auto) Sodium 137 Potassium 3.9 Chloride 105 Carbon Dioxide 28 Anion Gap 4 BUN 11 Creatinine 0.66 Est Cr Clr Drug Dosing 122.0 Est GFR ( Amer) 123.5 Est GFR (Non-Af Amer) 106.6 BUN/Creatinine Ratio 16.7 Glucose 89 Calcium 8.5 Magnesium 1.6 L Total Bilirubin 0.7 AST 16 ALT 19 Alkaline Phosphatase 63 Total Protein 5.5 L D Albumin 3.4 Globulin 2.1 L Albumin/Globulin Ratio 1.6 Lipase 190 H SARS-CoV-2, RNA, NAAT PG Care Time/CCT Total # of Minutes Spent Total Time Spent with Patient: Total time spent is greater than 50% in coordination of care (as documented) at patient's floor/unit and/or counseling patient: Coding Level of Care Code 86695 Subseq Obs Care Lvl 2 Diagnoses Intractable nausea and vomiting R11.2 Elevated lipase R74.8 History of esophageal cancer Z85.01 GERD (gastroesophageal reflux disease) K21.9 Chronic pain G89.29 Constipation K59.00 Hypertension I10 Depression F32.A Anemia D64.9 Anemia type: unspecified type (1) Anemia Anemia type: unspecified type Qualified Code(s): D64.9 - Anemia, unspecified
[2022-06-01] MEDS: ENOXAPARIN INJ 40 MG/0.4 ML SYR SQ SCH (20:21)
[2022-06-01] MEDS: LACTULOSE SYRUP 10 GM/15 ML BTL 960 ML PO SCH (20:22)
[2022-06-01] MEDS: diphenhydrAMINE Capsule 25 MG CAP PO PRN (20:38)
[2022-06-01] MEDS ORDERED: LACTULOSE SYRUP 10 GM/15 ML BTL 960 ML PO SCH (21:00)
[2022-06-02] MEDS ORDERED: FLUTICASONE PROPIONATE NA SPR 16 GM BTL NAE PRN (01:02)
[2022-06-02] MEDS: ALUMINUM/MAGNESIUM/SIMETH (MAALOX MAX) 30 ML UDC PO PRN ×2 (02:44→21:00)
[2022-06-02] MEDS: SODIUM CHLORIDE 0.9% 1000ML 1,000 ML IV SCH ×2 (05:55→21:00)
[2022-06-02 07:24] LABS: Basophils # (auto) 0.06 K/uL (0-0.2); Basophils % (auto) 0.9 %; Eosinophils # (auto) 0.15 K/uL (0-0.50); Eosinophils % (auto) 2.2 %; Hematocrit (blood only) 37.5 % (40.1-51.0); Hemoglobin 12.8 g/dl (14.0-18.0); Immature Granulocytes # (auto) 0.03 K/uL (0.00-0.02); Immature Granulocytes % (auto) 0.4 %; Lymphocytes % (auto) 32.4 %; Mean Corpuscular Hemoglobin 30.7 pg (25.0-34.0); Mean Corpuscular Hgb Conc 34.1 g/dL (32.0-36.0); Mean Corpuscular Volume 89.9 fL (80.0-100.0); Mean Platelet Volume 11.1 fL (9.4-12.4); Monocytes # (auto) 0.73 K/uL (0.24-0.82); Monocytes % (auto) 10.8 %; Neutrophils # (auto) 3.61 K/uL (1.4-6.5); Neutrophils % (auto) 53.3 %; Platelet Count 215 K/uL (130-400); RDW Coefficient of Variation 13.6 % (11.5-14.5); RDW Standard Deviation 45.1 fL (36.4-46.3); Red Blood Count 4.17 M/uL (4.63-6.08); White Blood Count 6.78 K/ul (4.8-10.8)
[2022-06-02 07:59] LABS: Albumin Globulin Ratio 1.6 (0.9-2); Albumin Level 3.6 gm/dl (3.4-5.0); Bilirubin,Total 0.7 mg/dl (0.2-1.0); Calcium 8.6 mg/dl (8.5-10.1); Creatinine Clr Calc Pharmacy 105.9 ml/min; Est GFR (African American) 116.6 ml/min; Est GFR (Non-African American) 100.6 ml/min; Globulin 2.2 gm/dl (2.5-4.0); Magnesium 1.8 mg/dl (1.7-2.4); Phosphorus 3.3 mg/dl (2.5-4.9); Potassium 3.7 mmol/L (3.5-5.1); Total Protein 5.8 gm/dl (6.0-8.3)
[2022-06-02] MEDS: FAMOTIDINE 20 MG in SYRINGE 3 ML IV SCH ×2 (09:27→20:56)
[2022-06-02] MEDS: BUPRENORPHINE/NALOXONE 8/2 MG TAB SL SCH ×2 (09:27→20:57)
[2022-06-02] MEDS: CITALOPRAM 20 MG TAB PO SCH (09:28)
[2022-06-02] MEDS: lisinopril 20 MG TAB PO SCH (09:28)
[2022-06-02] MEDS: PANTOprazole 40 MG in SYRINGE 0 ML IV SCH ×2 (09:28→20:52)
[2022-06-02] MEDS: LACTULOSE SYRUP 10 GM/15 ML BTL 960 ML PO SCH ×2 (09:31→20:53)
[2022-06-02] MEDS ORDERED: bisacodyL 10 MG SUPP PR PRN (10:51)
[2022-06-02] MEDS: cloNIDine HCL 0.1 MG TAB PO PRN (14:33)
[2022-06-02] MEDS: DICLOFENAC SOD 1% GEL 100 GM TUBE EXT PRN ×2 (15:57→20:52)
--- NOTE | 2022-06-02 17:22 | Hospitalist Progress Note ---
Date of Service June 02, 2022 Assessment & Plan (1) Intractable nausea and vomiting: Plan: No nausea and vomiting but rambling symptoms continue; looks hypovolemic; saline rate increased, Dulcolax suppositories addedcontinue supportive and symptomatic treatment (2) Elevated lipase: Plan: - Appears chronicfollow (3) History of esophageal cancer: Plan: - S/P esophagectomy with gastric pull-up in 2009, now Murry's esophagus. -Continue PPI and Pepcid-keep IV for now (4) GERD (gastroesophageal reflux disease): Plan: - IV PPI and Pepcid as above. (5) Chronic pain: Plan: - Chronic cervical disc disease, recently seen by neurosurgery on 05/23 he has been referred to physical therapy. - Continue Suboxone. (6) Constipation: Plan: - Continue Motegrity 2 mg daily as outpatient (not available here); lactulose added -Dulcolax added as above (7) Hypertension: Plan: - Continue lisinopril 5 mg dailypressors reasonable (8) Depression: Plan: - Continue Celexa. (9) Anemia: Plan: Follow mild anemia- occasionally receives iron transfusions at cancer center. Admission and Anticipated Discharge Date Admission Date: May 31, 2022 Subjective Follow-up of presentation with recurrent nausea and vomitingstill feels abdominal discomfort; no bowel movement Physical Exam Physical Exam: Constitutional and general: No acute distress, looks biologic age Head and face: No puffiness, atraumatic Eyes: No scleral icterus, extraocular movements normal Neck: Supple, no JVD Musculoskeletal: No acute joint swelling, no bony abnormalities Skin/dermatologic/integument: No rash, no purpura Hematologic and lymphatic: pallor mild, no petechia Gastrointestinal/abdomen: Nondistended, soft, nonacute Neurologic: Cranial nerves intact, nonfocal Psychiatry: Awake, alert, pleasant, communicative Cardiovascular: Heart rhythm regular, no rub, no murmur, no gallop Respiratory: Chest movements equal, no use of accessory muscles, no adventitious sounds Extremities: No edema, no cyanosis Clinically hypovolemic Results & Data Results & Data ([facility]) Vital Signs (Past 12 Hours) Vital Signs Temp Pulse Resp BP Pulse Ox O2 Del Method 06/02/22 14:28 36.5 C 73 16 141/88 H 96 Room Air 06/02/22 07:11 36.5 C 68 16 151/92 H 98 Room Air Laboratory Results Laboratory Results - last 24 hr 06/02/22 06/02/22 06:32 06:32 WBC 6.78 RBC 4.17 L Hgb 12.8 L Hct 37.5 L MCV 89.9 MCH 30.7 MCHC 34.1 RDW Std Deviation 45.1 RDW Coeff of Dorothy 13.6 Plt Count 215 MPV 11.1 Immature Gran % (Auto) 0.4 Neut % (Auto) 53.3 Lymph % (Auto) 32.4 [place] % (Auto) 10.8 Eos % (Auto) 2.2 Baso % (Auto) 0.9 Neut # (Auto) 3.61 Lymph # (Auto) 2.20 [place] # (Auto) 0.73 Eos # (Auto) 0.15 Baso # (Auto) 0.06 Immature Gran # (Auto) 0.03 H Sodium 140 Potassium 3.7 Chloride 105 Carbon Dioxide 28 Anion Gap 7 BUN 5 L Creatinine 0.76 Est Cr Clr Drug Dosing 105.9 Est GFR ( Amer) 116.6 Est GFR (Non-Af Amer) 100.6 Fasting Glucose 112 H Calcium 8.6 Phosphorus 3.3 Magnesium 1.8 Total Bilirubin 0.7 AST 26 ALT 30 Alkaline Phosphatase 66 Total Protein 5.8 L Albumin 3.6 Globulin 2.2 L Albumin/Globulin Ratio 1.6 PG Care Time/CCT Total # of Minutes Spent Total Time Spent with Patient: Total time spent is greater than 50% in coordination of care (as documented) at patient's floor/unit and/or counseling patient: Coding Level of Care Code 91427 Subseq Hosp Care Lvl 2 Diagnoses Intractable nausea and vomiting R11.2 Elevated lipase R74.8 History of esophageal cancer Z85.01 GERD (gastroesophageal reflux disease) K21.9 Chronic pain G89.29 Constipation K59.00 Hypertension I10 Depression F32.A Anemia D64.9 Anemia type: unspecified type (1) Anemia Anemia type: unspecified type Qualified Code(s): D64.9 - Anemia, unspecified
[2022-06-02] MEDS: ENOXAPARIN INJ 40 MG/0.4 ML SYR SQ SCH (18:40)
[2022-06-02] MEDS: diphenhydrAMINE Capsule 25 MG CAP PO PRN (20:57)
[2022-06-03] MEDS ORDERED: CALCIUM CARBONATE 500 MG CHEWABLE TAB PO PRN (00:24)
[2022-06-03] MEDS: cloNIDine HCL 0.1 MG TAB PO PRN (00:33)
[2022-06-03 08:06] LABS: Basophils # (auto) 0.06 K/uL (0-0.2); Basophils % (auto) 1.1 %; Eosinophils # (auto) 0.25 K/uL (0-0.50); Eosinophils % (auto) 4.6 %; Hematocrit (blood only) 35.7 % (40.1-51.0); Hemoglobin 11.8 g/dl (14.0-18.0); Immature Granulocytes # (auto) 0.02 K/uL (0.00-0.02); Immature Granulocytes % (auto) 0.4 %; Lymphocytes # (auto) 1.64 K/uL (1.2-3.4); Lymphocytes % (auto) 30.1 %; Mean Corpuscular Hemoglobin 29.9 pg (25.0-34.0); Mean Corpuscular Hgb Conc 33.1 g/dL (32.0-36.0); Mean Corpuscular Volume 90.4 fL (80.0-100.0); Mean Platelet Volume 10.8 fL (9.4-12.4); Monocytes # (auto) 0.62 K/uL (0.24-0.82); Monocytes % (auto) 11.4 %; Neutrophils # (auto) 2.85 K/uL (1.4-6.5); Neutrophils % (auto) 52.4 %; Platelet Count 194 K/uL (130-400); RDW Coefficient of Variation 13.6 % (11.5-14.5); RDW Standard Deviation 44.6 fL (36.4-46.3); Red Blood Count 3.95 M/uL (4.63-6.08); White Blood Count 5.44 K/ul (4.8-10.8)
[2022-06-03] MEDS: lisinopril 20 MG TAB PO SCH (08:20)
[2022-06-03] MEDS: BUPRENORPHINE/NALOXONE 8/2 MG TAB SL SCH (08:20)
[2022-06-03] MEDS: PANTOprazole 40 MG in SYRINGE 0 ML IV SCH (08:22)
[2022-06-03] MEDS: LACTULOSE SYRUP 10 GM/15 ML BTL 960 ML PO SCH (08:22)
[2022-06-03] MEDS: FAMOTIDINE 20 MG in SYRINGE 3 ML IV SCH (08:22)
[2022-06-03 08:25] LABS: Calcium 8.5 mg/dl (8.5-10.1); Creatinine Clr Calc Pharmacy 113.4 ml/min; Est GFR (African American) 119.9 ml/min; Est GFR (Non-African American) 103.4 ml/min
[2022-06-03 08:54] LABS: Phosphorus 3.2 mg/dl (2.5-4.9)
[2022-06-03] MEDS: CITALOPRAM 20 MG TAB PO SCH (09:10)
--- NOTE | 2022-06-03 10:29 | Gastroenterology Progress Note ---
Date of Service June 03, 2022 Assessment & Plan (1) Nausea & vomiting: (2) Constipation: Plan: Patient is seen for follow-up nausea, vomiting, constipation. These problems have all resolved. He is eating solid meals, passing flatus. Last bowel movement was 3 days ago. He states that he is usually taking Motegrity for constipation at home which is currently unavailable in the hospital. He would like to get discharged today. From our standpoint no contraindication for him to get discharge. GI will sign off, recall as needed. Admission and Anticipated Discharge Date Admission Date: May 31, 2022 Supervising Physician Co-Signing Physician Notes I have personally seen and examined the patient with NAOMI Moore. Her note reflects my exam and findings. I agree with her impression and plan. Pt doing well. Pt will return to normal bowel regimen at home. Amadeo Johnson M.D. Subjective Patient up in bed, eating solid breakfast. Denies any nausea, vomiting. Is passing flatus. Reports last bowel movement about 3 days ago. Review of Systems Review of Systems: All systems reviewed & are unremarkable except as noted in HPI & below Physical Exam Constitutional: WD/WN, vitals as above well groomed, cooperative and comfortable Eyes: PERRL, conjunctivae normal, anicteric sclerae ENMT: external ear and nose normal, oropharynx normal Respiratory: normal respiratory effort, lungs clear to auscultation Cardiovascular: RRR, no murmur, no edema Gastrointestinal (Abdomen): normal bowel sounds, soft, nontender, no hepatosplenomegaly Skin: no rashes, warm and dry no jaundice Psychiatric: A+Ox3, euthymic affect Lymphatic: no lymphedema Results & Data ([facility]) Vital Signs (Past 12 Hours) Vital Signs Temp Pulse Pulse Resp BP Pulse Ox O2 Del Method 06/03/22 10:20 36.7 C 74 16 126/78 96 Room Air 06/03/22 07:39 Room Air 06/03/22 08:16 67 149/82 H 06/03/22 07:35 36.7 C 60 18 150/82 H 97 Room Air 06/03/22 00:32 73 19 130/81 97 Room Air
[2022-06-03] MEDS: DICLOFENAC SOD 1% GEL 100 GM TUBE EXT PRN (10:30)
--- NOTE | 2022-06-03 10:57 | Discharge Summary ---
Date of Service June 03, 2022 Admission HPI Per Admitting Provider Shahbaz Arechiga is a 56-year-old male with a past medical history significant for esophageal cancer s/p esophagectomy and pull-through, prostate cancer, renal cell carcinoma, cervcial disc disease, chronic nausea, vomiting and abdominal pain, GERD, chronic constipation, hypertension, iron deficiency anemia, and depression who presents today with ongoing nausea and vomiting for 24 hours. Patient states at the beginning of the week he felt very rundown, fatigued, had headaches, and subjective fevers at home, although did not check his temperature. Yesterday morning, he began vomiting nonbloody emesis, approximately 20-30 episodes/day he estimates. He has tried taking his meclizine and Zofran he has at home, without any help. He is not keeping any p.o. intake down, except for little sips of water. He is still urinating, and he is having bowel movements that are regular for him. 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 He has developed abdominal pain after 24 hours of vomiting that does not radiate. In ED, he is hypertensive 161/99, otherwise vital signs within normal limits. Labs significant for elevated WBC 11.27, lipase 201. Otherwise, largely unremarkable his electrolytes are within normal limits, renal function is at baseline, hsTrop 6.2. X-ray of chest and abdomen did not show any acute process chest, nonobstructive bowel gas pattern seen. ED Course: 2.5L NSS, promethazine, prochlorperazine, PPI, Benadryl. Admission Exam Per Admitting Provider General: awake, alert, no apparent distress Head: Normocephalic, atraumatic ENT: PERRL, EOMI, no pharyngeal exudate, mucous membranes dry Chest: Clear to auscultation, on room air, no adventitious breath sounds Cardiac: Regular rate and rhythm, no murmur, no JVD, normal peripheral pulses, good capillary refill Abdominal: NABS x 4 quadrants, soft, mildly TTP across upper quadrants, no rebound, guarding or tenderness Extremities: Normal inspection, no peripheral edema or erythema, calfs nont rojas to palpation Psych: Normal mood and affect Neuro: AAO x 3, strength intact bilaterally and rated 5/5, no motor deficits, speech is clear, no peripheral sensory deficits Skin: no rash or erythema Principal Diagnosis Intractable Nausea/Vomiting Discharge Exam General: WN/WD male sitting up in bed, NAD HEENT:head normocephalic, atraumatic, pupils equal and reactive, mmm, trachea midline Resp: CTAB, no w/c/r, on room air CV: RRR, no m/r/g, no edema, no calf tenderness GI: +BS, +distended, nontender, no guarding/rigidity, no rebound : no sagastume MSK/Neuro: moves all extremities, no focal deficits Skin: warm, dry Discharge Data Allergies Allergy/AdvReac Type Severity Reaction Status Date / Time No Known Allergies Allergy Verified 05/02/22 09:11 Consultations 05/31/22 15:18 ED Decision to Admit Stat 05/31/22 18:37 Consult Gastroenterology Routine Ordered Studies Chest/Abdomen X-ray 05/31/22 12:17 XR abdomen 2V w PA chest HISTORY: 56 years-old Male prior esophagectomy/pull through; n/v ab/chest maddie acute chest and abdominal pain with nausea and vomiting COMPARISON: Chest radiograph 04/29/2022, CTA abdomen and pelvis 04/29/2020 exam TECHNIQUE: PA view of the chest with erect and supine views of the abdomen FINDINGS: The cardiomediastinal and hilar silhouettes are unchanged. No pneumothorax, pleural effusion, airspace consolidation or overt pulmonary edema. Degenerative changes of the shoulders and spine. Surgical clips of the upper abdomen and mediastinum. Cervical spinal fusion hardware. Surgical clips of the abdomen. Nonobstructive bowel gas pattern. No definite urolith identified. Pelvic basin phlebolith. Degenerative changes of the spine. IMPRESSION: 1. No acute process of the chest. 2. Nonobstructive bowel gas pattern. ACT 112: Negative or not required by law. The above report was generated using voice recognition software. It may contain grammatical, syntax or spelling errors. Electronically signed by: Mustapha Madrid M.D. 05/31/2022 1:32 PM KUB X-Ray 06/01/22 14:46 KUB HISTORY: Generalized Abdominal pain, nausea, vomiting, constipation COMPARISON: Chest and abdominal series 05/31/2022. FINDINGS: The bowel gas pattern is unremarkable. There are no dilated loops of small bowel to suggest an obstruction. No renal calculi. No ureteral calculi. Calcifications in the deep pelvis likely represent phleboliths. These remain unchanged. There are surgical clips within the upper to mid abdomen, unchanged. The lung bases appear clear.. No pneumoperitoneum or pneumatosis. IMPRESSION: No evidence for bowel obstruction. ACT 112: Negative or not required by law. Electronically signed by: Shree Murguia M.D. 06/01/2022 3:17 PM Hospital Course (1) Intractable nausea and vomiting: Hx esophageal cancer s/p esohagesctomy and pull through, prostate ca, renal cell carinoma, GERD presented with intractable n/v and inability to keep anything down PO (reported no further PO zofran at home, new rx sent at discharge) IVF and supportive care/electrolyte replacement undertaken KUB without obstruction GI consulted supportive care, advanced diet as tolerated No further n/v and tolerated diet and felt ready for discharge Of note, gastrin level attempted to be added prior to d/c but needs to be fasting 12 hours prior. Discussed can discuss in f/u and order outpatient if wanted. Per GI FRANCISCA, prior testing without any tumors, did have inflamed polyp on most recent endoscopy and planning to have resection during enteroscopy later in June Remains on dexilant 60mg daily, pepcid 20mg HS as needed Sent new rx for ODT Zofran at discharge Bowel regimen until motegrity able to be resumed in outpatient setting -- constipation at baseline, thought related to suboxone use (2) Elevated lipase: Chronic elevations, had EUS in january No epigastric discomfort on exam prior to discharge and discussed with GI to be elevated as patient eating Outpatient follow up with GI (3) History of esophageal cancer: S/P esophagectomy with gastric pull-up in 2009, now Murry's esophagus. Continue high dose PPI, pepcid, outpatient GI follow up (4) GERD (gastroesophageal reflux disease): PPI, H2 erwin (5) Chronic pain: Chronic cervical disc disease, recently seen by neurosurgery on 05/23 he has been referred to physical therapy. - Continued home Suboxone. (6) Constipation: -Continue Motegrity 2 mg daily as outpatient (not available here); lactulose added and to continue regimen at home -Dulcolax added as above (7) Hypertension: - Continued lisinopril 5 mg dailypressors reasonable (8) Depression: - Continued Celexa. (9) Anemia: Follow mild anemia- occasionally receives iron transfusions at cancer center. hgb stable on continuous IVF @ 50cc/hr throughout hospitalization Total Time Total Time Spent Total Time Spent (In Minutes): 40 Discharge Plan Discharge Items Patient Disposition: Home - Self-Care Reason For Visit: PANCREATITIS Discharge Diagnosis: Intractable Nausea/Vomiting Goals: You have been hospitalized for an acute medical problem. During your stay at [facility], we have made an effort to correct the problem that brought you to the hospital while keeping you as comfortable as possible. Medications were used to bring your condition under control and your discharge instructions will include directions for any medications you should take after leaving the hospital. Please make sure you see your Primary Care Provider as part of your follow up plan. Activity: Resume your previous activity Non-emergency contact: Primary Care Provider and Division Engineer Call non-emergency contact if: you have any medication questions Follow-up/Referrals: Rafiq Boucher III, MD [Physician] - 06/12/22 2:00 pm (APPT WITH DR SHELBY) Vivi Shelby MD [Primary Care Provider] - Diet: Heart Healthy and Low Fat Diet Texture: Dental soft (bite-sized) Addtl Attending Provider Instructions: You have been hospitalized for nausea/vomiting. You were treated conservatively with IV fluids and nausea medication and GI was consulted. They will continue working on Motegrity for help with your bowels and will have follow up for further testing in June. You have also been sent in a prescription for Zofran to use as needed for nausea/vomiting and are dissolvable under the tongue. I attempted to send out for a gastrin level and you can have follow up with your PCP or GI after discharge to decide if this would possibly be warranted, as you must be 12 hours fasting for this test. If elevated, they can consider changing your PPI around, however you are the larger dose of Dexliant as is presently and will defer to GI in follow up. Please follow up with your PCP in the next 7-10 days. Please return to the ER for any worsening nausea/vomiting or inability to keep up with oral intake. Pending Studies at Discharge: No Stand-Alone Forms: My [facility], Work/School Release Medications and DC Order Prescriptions: New ondansetron 4 mg tablet,disintegrating 4 mg PO Q8H 5 Days Qty: 10 0RF Continued lisinopril 20 mg tablet 20 mg PO QAM Qty: 30 11RF clonidine HCl 0.1 mg tablet 0.1 mg PO BID PRN (Reason: Anxiety) Qty: 60 3RF citalopram 20 mg tablet 20 mg PO QAM Qty: 90 3RF fluticasone propionate 50 mcg/actuation spray,suspension 1 - 2 spray intranasal BID Qty: 16 5RF Rx Instructions: administer into each nostril gabapentin 300 mg capsule 600 mg PO TID PRN (Reason: Pain) Qty: 180 11RF dexlansoprazole 60 mg capsule,biphase delayed releas 60 mg PO DAILY Qty: 90 3RF buprenorphine-naloxone 8-2 mg Tablet, Sublingual 1 tab SUBLINGUAL BID cyanocobalamin (vitamin B-12) 500 mcg Tablet 1,000 mcg PO QAM Qty: 90 3RF Rx Instructions: purchase over the counter sucralfate 100 mg/mL suspension 1 g PO ACHS PRN (Reason: Acid Reflux) famotidine [Pepcid] 40 mg tablet 20 mg PO QPM Motegrity 2 mg tablet 2 mg PO DAILY Discontinued ondansetron 4 mg tablet,disintegrating 4 mg PO Q8H PRN (Reason: nausea and vomiting) Qty: 10 0RF Discharge Orders: Discharge Order (Routine); Ordered 06/03/22 Ordered By: Dang Falk Admission Data Admit Date/Time: 05/31/22 15:56 Attending Provider: Micky Leong Admit Provider: Hunter Beach Primary Care Provider: Vivi Shelby Other Providers: Hunter Beach ; Elizabeth Griffin Coding Level of Care Code 38097 OBS Care - Discharge Diagnoses Intractable nausea and vomiting R11.2 Elevated lipase R74.8 History of esophageal cancer Z85.01 GERD (gastroesophageal reflux disease) K21.9 Chronic pain G89.29 Constipation K59.00 Hypertension I10 Depression F32.A Anemia D64.9 Anemia type: unspecified type
[2022-06-03 14:19] LABS: Albumin Globulin Ratio 1.6 (0.9-2); Albumin Level 3.5 gm/dl (3.4-5.0); Bilirubin,Total 0.5 mg/dl (0.2-1.0); Globulin 2.2 gm/dl (2.5-4.0); Total Protein 5.7 gm/dl (6.0-8.3)
== END 2022-06-03 16:05 | disposition home or self-care (01) ==
LOC: 3W 11:31 → ED 11:31 → SUATTDRO 15:56 → 3W 18:19
DX: E78.41 Elevated Lipoprotein(a); K59.09 Other constipation; Z85.46 Personal history of malignant neoplasm of prostate; Z85.01 Personal history of malignant neoplasm of esophagus; Z85.528 Personal history of other malignant neoplasm of kidney; Z79.899 Other long term (current) drug therapy; Z90.79 Acquired absence of other genital organ(s); I10 Essential (primary) hypertension; F17.210 Nicotine dependence, cigarettes, uncomplicated; K21.9 Gastro-esophageal reflux disease without esophagitis; D64.9 Anemia, unspecified; R11.2 Nausea with vomiting, unspecified

== ENCOUNTER 2022-06-30 06:10 | Inpatient (IN) ==
[2022-06-30] MEDS ORDERED: ONDANSETRON INJ 2 MG/ML 2 ML VIAL IV STA (06:29)
[2022-06-30] MEDS ORDERED: SODIUM CHLORIDE 0.9% 1000ML 1,000 ML IV ONE (06:45)
--- NOTE | 2022-06-30 06:50 | Emergency Department Note ---
Impression & Plan Acute pancreatitis, Abdominal pain, Vomiting ED Provider Note NAME: ERENDIRA OTT AGE: 56 SEX: M : 1965 ARRIVES VIA: Walk-In INFORMANT: Patient ED PROVIDER(S): Usman Melendez DO CHIEF COMPLAINT: abdominal pain HPI: Patient is a 56-year-old male who presents to the ER for abdominal pain. He notes a history of Murry's esophagus, pancreatitis, ileus, renal cell carcinoma, depression, narcotic abuse who presents ER for abdominal pain which has been present since Friday. He notes sharp stabbing in nature in the mid belly. 8 out of 10. Admits to nausea ad vomiting. No dysuria, urgency, or frequency. Unable to drink or eat. History of cholecystectomy. No other exacerbating or remitting factors. ROS: See above HPI for pertinent positives & negatives. A total of 10 systems reviewed and were otherwise negative. PAST MEDICAL HISTORY:See Below PAST SURGICAL HISTORY:See Below FAMILY HISTORY:See Below SOCIAL HISTORY:See Below HOME MEDICATIONS:See Below ALLERGIES:See Below VITALS:See Below PHYSICAL EXAMINATION: GENERAL: Sitting up in bed, alert, ill-appearing, moderate distress holding abdomen EYE EXAM: normal conjunctiva. OROPHARYNX: no exudate, no erythema, lips, buccal mucosa, and tongue normal and mucous membranes are moist NECK: supple, no nuchal rigidity, no adenopathy, non-tender LUNGS: Clear to auscultation. Normal chest wall mechanics HEART: no murmurs, S1 normal and S2 normal ABDOMEN: abdomen soft, palpation periumbilically, normo-active bowel sounds, no masses, no rebound or guarding. UPPER EXTREMITIES: upper extremities are grossly normal. LOWER EXTREMITIES: No pitting edema. NEURO EXAM: Normal sensorium, cranial nerves II-XII grossly intact, normal speech, no gross weakness of arms, no gross weakness of legs. MEDICAL DECISION MAKING: Patient is a 56-year-old male who presents ER for the above-stated complaint. IV was established blood work was obtained. Labs show no significant leukocytosis or anemia. BMP along with LFTs bilirubin was unremarkable. Lipase was elevated to 10. UA was clean. COVID was negative. CT abdomen pelvis shows enteritis/colitis. Patient was given IV fluids narcotics Zofran and updated at bedside. Discussed with the hospitalist for further evaluation. Patient was discussed with Eladio Conroy from the hospitalist service. Triage Nursing notes reviewed. Limited review of prior medical records performed Vital Signs: reviewed and remarkable for htn Differential diagnosis: Differential diagnoses includes but is not limited to gastritis, peptic ulcer disease, GERD, gallbladder disease, pancreatitis, small bowel obstruction, acute coronary syndrome, pericarditis, ischemic bowel, irritable bowel disease, irritable bowel syndrome, appendicitis, diverticulitis, malignancy, hernia, urinary tract infection, torsion, perforation, trauma, infectious. ER treatment provided: See below Diagnostics interpreted by me: ECG: Sinus rhythm rate 81 Normal axis No PVCs QTC 406 Cardiac Monitoring: An order was placed for continuous cardiac monitoring. The monitor shows a rate of 90 with sinus rhythm. Laboratory studies: As stated above and show below. Imaging studies: CT Abdomen pelvis as described above Consultation(s): As described above Procedures: none Critical Care: None Past Med/Surg History Medical History Abnormal weight loss Acute dehydration 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 dx'ed with esophageal cancer in 2007 EGD in 10/2020 did show Barretts with esophagitis and ulcers - put on PPI Candidal esophagitis S/p treatment after EGD Chronic pain Elevated lipase Esophageal cancer 2007 s/p chemo and radiation Fissure, anal Pt unsure if still present- getting repeat colonoscopy in the future Fracture of multiple thoracic vertebrae 25 years ago Gastro-esophageal reflux disease with esophagitis Uncontrolled Hepatitis C [id number] Intractable nausea and vomiting Iron deficiency anemia Lumbago Major depressive disorder Nausea & vomiting Nausea & vomiting Restless leg No current issues 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 Withdrawal from opioids Was on increased opioids in the past secondary to chronic back pain- weaned off pain medications- was taking herbal supplement (Kraton)= now using Suboxone to taper off supplement Surgical History H/O radical prostatectomy History of anesthesia reaction pt states he woke up during 2 EGD procedures and during shoulder sx History of colonoscopy History of cystoscopy History of esophagectomy 2007 History of esophagogastroduodenoscopy (EGD) recent 10/31/2020 History of nephrectomy, left History of repair of rotator cuff right and left shoulder History of right knee surgery meniscectomy Hx laparoscopic cholecystectomy Status post surgery neck surgery with hardware Family History Father Hypertension Myocardial infarction Coronary heart disease Mother Cancer Skin and Lung Brother Hypertension Other No family history of adverse response to anesthesia Denies family history of Ovarian cancer Prostate cancer Breast cancer Colorectal cancer Social History Smoking Status: Never smoker Tobacco Type: Cigarettes Years Smoked: 10; Second Hand Exposure: No; Hx Alcohol Use: No Hx Substance Use: Yes Substance Use Type Other:: SUBOXONE Preferred Language: Lithuanian Communication Ability: Effective Visual Impairment: No Limitations Hearing Ability: Normal Money Counter Required: No Beliefs That Will Affect Care: None marital status: Current Living Situation: Spouse current occupational status: employed 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 How many Children do You have: 2 Feels Safe at Home: Yes Childhood Exposure to Second-Hand Smoke: Yes caffeine: Yes Dental Care, Regularly: Yes Physical Activity Frequency: Daily Seatbelt Use: always Sunscreen Use: No Assistive Devices: None Allergies Allergies Allergy/AdvReac Type Severity Reaction Status Date / Time No Known Allergies Allergy Verified 05/02/22 09:11 Home Meds Home Medications Medication Instructions Recorded Confirmed buprenorphine 8 mg-naloxone 2 mg 1 tab sublingual BID 01/09/21 06/30/22 sublingual tablet famotidine 40 mg tablet (Pepcid) 20 mg PO QPM 11/27/21 06/30/22 sucralfate 100 mg/mL oral 1 g PO ACHS PRN Acid Reflux 11/27/21 06/30/22 suspension prucalopride 2 mg tablet 2 mg PO DAILY 05/31/22 06/30/22 (Motegrity) Previous Rx's Medication Instructions Recorded dexlansoprazole 60 mg 60 mg PO DAILY #90 caps 09/19/21 capsule,biphase delayed release lisinopril 20 mg tablet 20 mg PO QAM #30 tabs 10/01/21 cyanocobalamin (vitamin B-12) 500 1,000 mcg PO QAM #90 tabs 03/08/22 mcg tablet clonidine HCl 0.1 mg tablet 0.1 mg PO BID PRN Anxiety #60 tabs 04/10/22 gabapentin 300 mg capsule 600 mg PO TID PRN Pain #180 caps 04/15/22 citalopram 20 mg tablet 20 mg PO QAM #90 tabs 05/10/22 fluticasone propionate 50 1 - 2 spray intranasal BID #16 05/17/22 mcg/actuation nasal grams spray,suspension Results & Data (ED) Vital Signs Vital Signs - 24 hr 06/30/22 06:16 06/30/22 06:52 06/30/22 06:51 Temperature 36.6 C 36.9 C Temperature Source Temporal Artery Scan Oral Pulse Rate 84 Pulse Rate [Finger] 84 Respiratory Rate 20 19 Respiratory Effort / Characteristics Non-Labored Spontaneous Respiratory Depth Normal Respiratory Pattern Blood Pressure 173/99 H Blood Pressure [Right Arm] 165/100 H Blood Pressure Mean 123 Blood Pressure Mean [Right Arm] 121 Blood Pressure Position [Right Arm] Pulse Oximetry 99 100 100 Oxygen Delivery Method Room Air Room Air Room Air Sepsis Recent Fever Within 48 Hours No Sepsis New/Unexplained Change in Mental Status N/A Sepsis Action Taken by Nursing No Action Required 06/30/22 08:00 06/30/22 09:00 Temperature 36.8 C Temperature Source Oral Pulse Rate Pulse Rate [Finger] 89 80 Respiratory Rate 18 19 Respiratory Effort / Characteristics Non-Labored Spontaneous Non-Labored Spontaneous Respiratory Depth Normal Normal Respiratory Pattern Regular Regular Blood Pressure Blood Pressure [Right Arm] 168/96 H 159/98 H Blood Pressure Mean Blood Pressure Mean [Right Arm] 120 118 Blood Pressure Position [Right Arm] Lying Lying Pulse Oximetry 99 100 Oxygen Delivery Method Room Air Room Air Sepsis Recent Fever Within 48 Hours Sepsis New/Unexplained Change in Mental Status Sepsis Action Taken by Nursing Laboratory Data Result diagrams: 06/30/22 06:49 06/30/22 06:49 Lab Results 06/30/22 06/30/22 06/30/22 Range/Units 06:49 06:49 08:50 WBC 8.41 (4.8-10.8) K/ul RBC 4.72 (4.63-6.08) M/uL Hgb 14.4 (14.0-18.0) g/dl Hct 42.0 (40.1-51.0) % MCV 89.0 (80.0-100.0) fL MCH 30.5 (25.0-34.0) pg MCHC 34.3 (32.0-36.0) g/dL RDW Std Deviation 41.3 (36.4-46.3) fL RDW Coeff of Dorothy 12.7 (11.5-14.5) % Plt Count 253 (130-400) K/uL MPV 10.5 (9.4-12.4) fL Immature Gran % (Auto) 0.4 % Neut % (Auto) 80.5 % Lymph % (Auto) 13.1 % Anderson % (Auto) 5.4 % Eos % (Auto) 0.1 % Baso % (Auto) 0.5 % Neut # (Auto) 6.78 H (1.4-6.5) K/uL Lymph # (Auto) 1.10 L (1.2-3.4) K/uL Anderson # (Auto) 0.45 (0.24-0.82) K/uL Eos # (Auto) 0.01 (0-0.50) K/uL Baso # (Auto) 0.04 (0-0.2) K/uL Immature Gran # (Auto) 0.03 H (0.00-0.02) K/uL Sodium 137 (136-145) mmol/L Potassium 4.0 (3.5-5.1) mmol/L Chloride 102 (98-107) mmol/L Carbon Dioxide 26 (21-32) mmol/L Anion Gap 9 (3-11) BUN 10 (6-23) mg/dl Creatinine 0.96 (0.6-1.4) mg/dl Est Cr Clr Drug Dosing 83.2 ml/min Est GFR ( Amer) 100.6 ml/min Est GFR (Non-Af Amer) 86.8 ml/min BUN/Creatinine Ratio 10.4 (10-20) Glucose 114 H (70-99(Fasting)) mg/dl Calcium 9.7 (8.5-10.1) mg/dl Total Bilirubin 0.6 (0.2-1.0) mg/dl AST 24 (13-39) U/L ALT 19 (7-52) U/L Alkaline Phosphatase 76 (34-104) U/L Troponin I High Sens 4.2 (0-20) pg/ml Total Protein 7.0 (6.0-8.3) gm/dl Albumin 4.3 (3.4-5.0) gm/dl Globulin 2.7 (2.5-4.0) gm/dl Albumin/Globulin Ratio 1.6 (0.9-2) Lipase 217 H (11-82) U/L Urine Color Yellow Urine Appearance Clear (Clear) Urine pH 7.0 (4.5-7.5) Ur Specific [place] 1.043 H (1.000-1.030) Urine Protein Negative (Negative) Urine Glucose (UA) Negative (Negative) Urine Ketones Trace H (Negative) Urine Blood Negative (Negative) Urine Nitrite Negative (Negative) Urine Bilirubin Negative (Negative) Urine Urobilinogen Negative (Negative) Ur Leukocyte Esterase Negative (Negative) SARS-CoV-2, RNA, NAAT (NEGATIVE) 06/30/22 Range/Units 09:00 WBC (4.8-10.8) K/ul RBC (4.63-6.08) M/uL Hgb (14.0-18.0) g/dl Hct (40.1-51.0) % MCV (80.0-100.0) fL MCH (25.0-34.0) pg MCHC (32.0-36.0) g/dL RDW Std Deviation (36.4-46.3) fL RDW Coeff of Dorothy (11.5-14.5) % Plt Count (130-400) K/uL MPV (9.4-12.4) fL Immature Gran % (Auto) % Neut % (Auto) % Lymph % (Auto) % Anderson % (Auto) % Eos % (Auto) % Baso % (Auto) % Neut # (Auto) (1.4-6.5) K/uL Lymph # (Auto) (1.2-3.4) K/uL Anderson # (Auto) (0.24-0.82) K/uL Eos # (Auto) (0-0.50) K/uL Baso # (Auto) (0-0.2) K/uL Immature Gran # (Auto) (0.00-0.02) K/uL Sodium (136-145) mmol/L Potassium (3.5-5.1) mmol/L Chloride (98-107) mmol/L Carbon Dioxide (21-32) mmol/L Anion Gap (3-11) BUN (6-23) mg/dl Creatinine (0.6-1.4) mg/dl Est Cr Clr Drug Dosing ml/min Est GFR ( Amer) ml/min Est GFR (Non-Af Amer) ml/min BUN/Creatinine Ratio (10-20) Glucose (70-99(Fasting)) mg/dl Calcium (8.5-10.1) mg/dl Total Bilirubin (0.2-1.0) mg/dl AST (13-39) U/L ALT (7-52) U/L Alkaline Phosphatase (34-104) U/L Troponin I High Sens (0-20) pg/ml Total Protein (6.0-8.3) gm/dl Albumin (3.4-5.0) gm/dl Globulin (2.5-4.0) gm/dl Albumin/Globulin Ratio (0.9-2) Lipase (11-82) U/L Urine Color Urine Appearance (Clear) Urine pH (4.5-7.5) Ur Specific [place] (1.000-1.030) Urine Protein (Negative) Urine Glucose (UA) (Negative) Urine Ketones (Negative) Urine Blood (Negative) Urine Nitrite (Negative) Urine Bilirubin (Negative) Urine Urobilinogen (Negative) Ur Leukocyte Esterase (Negative) SARS-CoV-2, RNA, NAAT NEGATIVE (NEGATIVE) Administered Medications Lactated Ringer's (Lr) 1,000 mls @ 150 mls/hr IV .Q6H40M YANETH Stop: 07/30/22 09:14 Last Admin: 06/30/22 11:08 Dose: 150 mls/hr Documented By: FARIHA Morphine Sulfate (Morphine Sulfate 4 Mg/Ml 1 Ml Carp\Vial) 3 mg IV Q3H PRN PRN Reason: Pain Stop: 07/14/22 09:13 Last Admin: 06/30/22 11:56 Dose: 3 mg Documented By: FARIHA Ondansetron HCl (Ondansetron Inj 2 Mg/Ml 2 Ml Vial) 4 mg IV Q6H PRN PRN Reason: Nausea And Vomiting Stop: 07/30/22 09:13 Last Admin: 06/30/22 11:11 Dose: 4 mg Documented By: FARIHA Discontinued Medications Sodium Chloride (Nss 1000ml) 1,000 mls @ 999 mls/hr IV .Q1H1M ONE Stop: 06/30/22 07:45 Last Infusion: 06/30/22 08:00 Dose: 0 mls/hr Documented By: Admin: 06/30/22 07:00 Dose: 999 mls/hr Documented By: RUI Promethazine HCl (Phenergan) 25 mg in 51 mls @ 204 mls/hr IV NOW STA Stop: 06/30/22 08:12 Last Infusion: 06/30/22 08:32 Dose: 0 mls/hr Documented By: Admin: 06/30/22 08:04 Dose: 204 mls/hr Documented By: COLTEN Ioversol (Optiray 300 100ml) 93 ml IV ONCE ONE Stop: 06/30/22 07:37 Last Admin: 06/30/22 07:39 Dose: 93 ml Documented By: JOSE Morphine Sulfate (Morphine Sulfate 10 Mg/Ml Carp/Vial) 6 mg IV NOW STA Stop: 06/30/22 08:50 Last Admin: 06/30/22 09:09 Dose: Not Given Documented By: RUI Morphine Sulfate (Morphine Sulfate 4 Mg/Ml 1 Ml Carp\Vial) Confirm Administered Dose 4 mg .ROUTE .STK-MED ONE Stop: 06/30/22 09:06 Last Admin: 06/30/22 09:09 Dose: 4 mg Documented By: RUI Morphine Sulfate (Morphine Sulfate 2 Mg/Ml Carp) Confirm Administered Dose 2 mg .ROUTE .STK-MED ONE Stop: 06/30/22 09:07 Last Admin: 06/30/22 09:08 Dose: 2 mg Documented By: RUI Ondansetron HCl (Ondansetron Inj 2 Mg/Ml 2 Ml Vial) 4 mg IV NOW STA Stop: 06/30/22 06:30 Last Admin: 06/30/22 06:44 Dose: 4 mg Documented By: KAREN Imaging Data Radiologist's Impression: Abdomen/Pelvis CT 06/30/22 06:45 CT abd pelvis IV con only CLINICAL HISTORY: abd pain TECHNIQUE: Helical axial images of the abdomen and pelvis were obtained and displayed. Automated dose lowering techniques and/or adjustment according to patient size were utilized for this exam. This exam was performed with intravenous contrast. CT DOSE: 296.58 mGy.cm COMPARISON: Comparison is made to CTA abdomen and pelvis 04/29/2022 FINDINGS: Lower chest: Bibasilar atelectasis versus scarring is seen. Partial visualization of esophagectomy with gastric pull-through. Liver: Focal fatty changes are noted about the falciform ligament. Gallbladder and biliary tree: Patient is status post cholecystectomy. No intra- or extrahepatic biliary ductal dilation. Pancreas: Unremarkable, no focal lesions. Spleen: Unremarkable. Adrenals: Stable mild thickening of the left adrenal gland. Kidneys and ureters: Unremarkable. Bladder: Diffuse homogeneous wall thickening is seen. Reproductive organs: The prostate appears diminutive or surgically absent. Bowel: Mild diffuse thickening of the colonic wall is seen. The appendix is normal. Postsurgical changes of esophagectomy and gastric pull-through are noted. No evidence of obstruction. Lymph nodes Retroperitoneal: Unremarkable. Pelvic: Unremarkable. Mesenteric: Unremarkable. Peritoneum: Normal. Vessels: Atherosclerotic calcifications are seen. Abdominal wall: Unremarkable. Bones: Degenerative changes in the visualized spine. Sclerotic focus of the left iliac bone is unchanged, likely benign. IMPRESSION: 1. There is diffuse colonic wall thickening which may be related to infe ctious/inflammatory colitis. There is no evidence of obstruction. 2. Postsurgical changes of esophagectomy and gastric pull-through are seen. 3. Thickening of the bladder wall is nonspecific, correlation with urinalysis is recommended to exclude cystitis. ACT 112: Negative or not required by law. Electronically signed by: Perico Ji M.D. 06/30/2022 8:23 AM Discharge Plan Visit Data Chief Complaint: Abdominal Pain Stated Complaint: ABD PAIN ED Provider: Usman Melendez Discharge Problem: Acute pancreatitis, Abdominal pain, Vomiting Patient Disposition: Admitted As Inpatient Discharge Instructions Interventions: ED Discharge Assessment Last Done: 06/30/22 10:45
[2022-06-30 06:58] LABS: Basophils # (auto) 0.04 K/uL (0-0.2); Basophils % (auto) 0.5 %; Eosinophils # (auto) 0.01 K/uL (0-0.50); Eosinophils % (auto) 0.1 %; Hemoglobin 14.4 g/dl (14.0-18.0); Immature Granulocytes # (auto) 0.03 K/uL (0.00-0.02); Immature Granulocytes % (auto) 0.4 %; Lymphocytes % (auto) 13.1 %; Mean Corpuscular Hemoglobin 30.5 pg (25.0-34.0); Mean Corpuscular Hgb Conc 34.3 g/dL (32.0-36.0); Mean Platelet Volume 10.5 fL (9.4-12.4); Monocytes # (auto) 0.45 K/uL (0.24-0.82); Monocytes % (auto) 5.4 %; Neutrophils # (auto) 6.78 K/uL (1.4-6.5); Neutrophils % (auto) 80.5 %; Platelet Count 253 K/uL (130-400); RDW Coefficient of Variation 12.7 % (11.5-14.5); RDW Standard Deviation 41.3 fL (36.4-46.3); Red Blood Count 4.72 M/uL (4.63-6.08); White Blood Count 8.41 K/ul (4.8-10.8)
[2022-06-30 07:19] LABS: Albumin Globulin Ratio 1.6 (0.9-2); Albumin Level 4.3 gm/dl (3.4-5.0); BUN Creatinine Ratio 10.4 (10-20); Bilirubin,Total 0.6 mg/dl (0.2-1.0); Calcium 9.7 mg/dl (8.5-10.1); Creatinine Clr Calc Pharmacy 83.2 ml/min; Est GFR (African American) 100.6 ml/min; Est GFR (Non-African American) 86.8 ml/min; Globulin 2.7 gm/dl (2.5-4.0)
[2022-06-30 07:24] LABS: Troponin I High Sensitivity 4.2 pg/ml (0-20)
--- NOTE | 2022-06-30 07:25 | Electrocardiogram Report ---
Test Reason : Blood Pressure : / mmHG Vent. Rate : 081 BPM Atrial Rate : 081 BPM P-R Int : 122 ms QRS Dur : 082 ms QT Int : 350 ms P-R-T Axes : 055 007 012 degrees QTc Int : 406 ms Poor data quality, interpretation may be adversely affected Normal sinus rhythm with sinus arrhythmia Minimal voltage criteria for LVH, may be normal variant Nonspecific ST abnormality Abnormal ECG When compared with ECG of 31-MAY-2022 12:35, Nonspecific T wave abnormality no longer evident in Anterior leads Confirmed by Miek Vergara ([id number]) on 06/30/2022 7:24:37 AM Referred By: Confirmed By:Jose Vergara
[2022-06-30] MEDS ORDERED: OPTIRAY 300 100mL IV ONE (07:36)
[2022-06-30] MEDS ORDERED: PROMETHAZINE 25 MG/51 ML BAG IV STA (07:58)
--- NOTE | 2022-06-30 08:24 | CT Scan Report ---
CT abd pelvis IV con only CLINICAL HISTORY: abd pain TECHNIQUE: Helical axial images of the abdomen and pelvis were obtained and displayed. Automated dose lowering techniques and/or adjustment according to patient size were utilized for this exam. This e xam was performed with intravenous contrast. CT DOSE: 296.58 mGy.cm COMPARISON: Comparison is made to CTA abdomen and pelvis 04/29/2022 FINDINGS: Lower chest: Bibasilar atelectasis versus scarring is seen. Partial visualization of esophagectomy w ith gastric pull-through. Liver: Focal fatty changes are noted about the falciform ligament. Gallbladder and biliary tree: Patient is status post cholecystectomy. No intra- or extrahepatic bilia ry ductal dilation. Pancreas: Unremarkable, no focal lesions. Spleen: Unremarkable. Adrenals: Stable mild thickening of the left adrenal gland. Kidneys and ureters: Unremarkable. Bladder: Diffuse homogeneous wall thickening is seen. Reproductive organs: The prostate appears diminutive or surgically absent. Bowel: Mild diffuse thickening of the colonic wall is seen. The appendix is normal. Postsurgical sarmiento ges of esophagectomy and gastric pull-through are noted. No evidence of obstruction. Lymph nodes Retroperitoneal: Unremarkable. Pelvic: Unremarkable. Mesenteric: Unremarkable. Peritoneum: Normal. Vessels: Atherosclerotic calcifications are seen. Abdominal wall: Unremarkable. Bones: Degenerative changes in the visualized spine. Sclerotic focus of the left iliac bone is unchan ged, likely benign. IMPRESSION: 1. There is diffuse colonic wall thickening which may be related to infectious/inflammatory colitis. There is no evidence of obstruction. 2. Postsurgical changes of esophagectomy and gastric pull-through are seen. 3. Thickening of the bladder wall is nonspecific, correlation with urinalysis is recommended to excl ude cystitis. ACT 112: Negative or not required by law. Electronically signed by: Perico Ji M.D. 06/30/2022 8:23 AM
[2022-06-30] MEDS ORDERED: MoRPHine SULFATE 10 MG/ML CARP/VIAL IV STA (08:49)
[2022-06-30 09:05] LABS: Appearance Urine Clear (Clear); Bilirubin Urine Negative (Negative); Blood Urine Negative (Negative); Color Urine Yellow; Glucose Urine UA Negative (Negative); Ketones Urine Trace (Negative); Leukocyte Esterase Urine Negative (Negative); Nitrite Urine Negative (Negative); Protein Urine Negative (Negative); Specific Gravity Urine 1.043 (1.000-1.030); Urobilinogen Urine Negative (Negative)
[2022-06-30] MEDS ORDERED: MoRPHine SULFATE 4 MG/ML 1 ML CARP\\VIAL ONE (09:05)
[2022-06-30] MEDS ORDERED: MoRPHine SULFATE 2 MG/ML CARP ONE (09:06)
--- NOTE | 2022-06-30 09:06 | History & Physical Report ---
Date of Service June 30, 2022 Assessment & Plan (1) Abdominal pain: Plan: The patient will be admitted to the hospital. By labs, physical exam, and imaging it appears as though the patient is suffering from a colitis as well as pancreatitis. We will therefore proceed as follows: Implement n.p.o. status for the present time Hydrate with intravenous fluids Provide antiemetics Provide analgesics Due to concern for colitis we will order a stool culture/C. difficile We will hold antibiotics for the present time until we have results of stool culture back We will follow serial laboratories Additional recommendations to be forthcoming based on his clinical course as it unfolds Will use subcutaneous heparin for DVT prevention I discussed CODE STATUS with this patient. In the event of cardiopulmonary arrest he wishes to be a level 1 full code History of Present Illness Chief Complaint: Abdominal pain with nausea and vomiting Primary Care Provider: Vivi Beverly MD This is a 56-year-old male who presented to [facility] secondary to abdominal pain. He notes that the patient had sudden onset of abdominal pain approximately 3 days ago. He describes the pain as a stabbing pain without palliative or provocative factors. He notes that the pain is located primarily in the epigastric area and does not radiate. The patient notes that he has not had any fevers. He denies any cough or shortness of breath. He denies any dysuria. He denies eating any poorly or undercooked food. He states that no close contacts are ill. With his current symptomatology he does not have any diarrhea. It is nowhere the mention that the patient was admitted to [facility] earlier this month with intractable nausea and vomiting. He was seen by gastroenterology during this that visit and supportive care was employed. The patient's symptomatology improved and he was able to be discharged home. Today in the emergency department patient had labs and imaging which I independently reviewed. A CBC revealed white blood cell count, hemoglobin, hematocrit, platelet count were all within normal range. Chemistry profile showed sodium, potassium, BUN, and creatinine were within normal range. There is no elevation of patient's LFTs. He was noted to have a slight elevation of his lipase at 217. Review of records show that his lipase is chronically elevated. An EKG showed normal sinus rhythm without changes indicative of acute ischemia. A CT scan of the abdomen pelvis showed patient had some diffuse colonic wall thickening concerning for an infectious or inflammatory colitis. On this imaging study his pancreas did not show any abnormalities, specifically no pseudocyst. There is no evidence of obstruction. In the emergency department the patient has received antiemetics in the form of Phenergan and Zofran without alleviation of his symptoms. At the time of my interview the patient was in no distress but he did appear somewhat uncomfortable. Allergies Allergy/AdvReac Type Severity Reaction Status Date / Time No Known Allergies Allergy Verified 05/02/22 09:11 Home Medications Medication Instructions Recorded Confirmed Type buprenorphine 8 mg-naloxone 2 mg 1 tab sublingual BID 01/09/21 06/30/22 History sublingual tablet dexlansoprazole 60 mg 60 mg PO DAILY #90 caps 09/19/21 06/30/22 Rx capsule,biphase delayed release lisinopril 20 mg tablet 20 mg PO QAM #30 tabs 10/01/21 06/30/22 Rx famotidine 40 mg tablet (Pepcid) 20 mg PO QPM 11/27/21 06/30/22 History sucralfate 100 mg/mL oral 1 g PO ACHS PRN Acid Reflux 11/27/21 06/30/22 History suspension cyanocobalamin (vitamin B-12) 500 1,000 mcg PO QAM #90 tabs 03/08/22 06/30/22 Rx mcg tablet clonidine HCl 0.1 mg tablet 0.1 mg PO BID PRN Anxiety #60 tabs 04/10/22 06/30/22 Rx gabapentin 300 mg capsule 600 mg PO TID PRN Pain #180 caps 04/15/22 06/30/22 Rx citalopram 20 mg tablet 20 mg PO QAM #90 tabs 05/10/22 06/30/22 Rx fluticasone propionate 50 1 - 2 spray intranasal BID #16 05/17/22 06/30/22 Rx mcg/actuation nasal grams spray,suspension prucalopride 2 mg tablet 2 mg PO DAILY 05/31/22 06/30/22 History (Motegrity) Past Med/Surg History Medical History Abnormal weight loss Acute dehydration 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 dx'ed with esophageal cancer in 2007 EGD in 10/2020 did show Barretts with esophagitis and ulcers - put on PPI Candidal esophagitis S/p treatment after EGD Chronic pain Elevated lipase Esophageal cancer 2007 s/p chemo and radiation Fissure, anal Pt unsure if still present- getting repeat colonoscopy in the future Fracture of multiple thoracic vertebrae 25 years ago Gastro-esophageal reflux disease with esophagitis Uncontrolled Hepatitis C [id number] Intractable nausea and vomiting Iron deficiency anemia Lumbago Major depressive disorder Nausea & vomiting Nausea & vomiting Restless leg No current issues 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 Withdrawal from opioids Was on increased opioids in the past secondary to chronic back pain- weaned off pain medications- was taking herbal supplement (Kraton)= now using Suboxone to taper off supplement Surgical History H/O radical prostatectomy History of anesthesia reaction pt states he woke up during 2 EGD procedures and during shoulder sx History of colonoscopy History of cystoscopy History of esophagectomy 2007 History of esophagogastroduodenoscopy (EGD) recent 10/31/2020 History of nephrectomy, left History of repair of rotator cuff right and left shoulder History of right knee surgery meniscectomy Hx laparoscopic cholecystectomy Status post surgery neck surgery with hardware Family History Father Hypertension Myocardial infarction Coronary heart disease Mother Cancer Skin and Lung Brother Hypertension Other No family history of adverse response to anesthesia Denies family history of Ovarian cancer Prostate cancer Breast cancer Colorectal cancer Social History Smoking Status: Never smoker Tobacco Type: Cigarettes Years Smoked: 10; Second Hand Exposure: No; Hx Alcohol Use: No Hx Substance Use: Yes Substance Use Type Other:: SUBOXONE Preferred Language: Faroese Communication Ability: Effective Visual Impairment: No Limitations Hearing Ability: Normal Diversional Therapist Required: No Beliefs That Will Affect Care: None marital status: Current Living Situation: Spouse current occupational status: employed 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 How many Children do You have: 2 Other Information That Helps Us Care for You: No Feels Safe at Home: Yes Safety Concerns: Feels Safe At This Time Childhood Exposure to Second-Hand Smoke: Yes caffeine: Yes Dental Care, Regularly: Yes Physical Activity Frequency: Daily Seatbelt Use: always Sunscreen Use: No Assistive Devices: None Review of Systems Constitutional: no fever and no chills Eyes: no eye pain Ear, Nose, Mouth, Throat: no ear pain Respiratory: no cough and no dyspnea Cardiovascular: no chest pain Gastrointestinal: + abdominal pain, + nausea and + vomiting; no diarrhea/loose stools Genitourinary: no dysuria Musculoskeletal: no back pain Integumentary: no rash Neurologic: no localized weakness Physical Exam Constitutional: well developed and well nourished; no acute distress and + uncomfortable Eyes: no scleral abnormality and no corneal abnormality ENMT: Ears: no hearing impairment and no external ear abnormality Mucous membranes are moist Neck: trachea midline Respiratory: normal respiratory effort, lungs clear to auscultation Cardiovascular: Rate/Rhythm: regular rate and regular rhythm Vessels: dorsalis pedis pulses present and radial pulses present Gastrointestinal (Abdomen): Abdomen is soft, nonrigid, nondistended. There is no rebound tenderness or guarding but patient did have tenderness with palpation in the epigastric area. Musculoskeletal: No calf tenderness. Feet are warm and non-mottled. No gross orthopedic abnormalities Skin: no rashes Neurologic: moves all extremities Psychiatric: A+Ox3, euthymic affect Results & Data Results & Data ([facility]) Vital Signs (Past 12 Hours) Vital Signs Temp Pulse Pulse Resp BP BP Pulse Ox 06/30/22 08:00 36.8 C 89 18 168/96 H 99 06/30/22 06:51 100 06/30/22 06:52 36.9 C 84 19 165/100 H 100 06/30/22 06:16 36.6 C 84 20 173/99 H 99 O2 Del Method 06/30/22 08:00 Room Air 06/30/22 06:51 Room Air 06/30/22 06:52 Room Air 06/30/22 06:16 Room Air Supervising Physician Co-Signing Physician Notes I personally saw and examined the patient. I verified all murrieta points and agree with Eladio Conroy PA-C with the following exceptions and/or additions: 56-year-old male admission for abdominal pain, nausea, vomiting. Multiple episodes of similar which appear to be related to constipation. Last BM yesterday but he reports feeling constipated. O/E In acute distress with abdominal pain, HS1+2, no murmurs, Chest CTAB, Abdo epigastric tenderness without rebound or guarding A/P Abdominal pain, nausea, vomiting -do not suspect acute pancreatitis given current lipase levels. No imaging changes to suggest this. Episodes usually relieved by himself. We will support patient with IV fluids, nausea and pain medication and follow to resolution which usually occurs in 1 to 2 days. Continue to follow-up with gastroenterology on discharge for ongoing investigations for this. PG Care Time/CCT Total # of Minutes Spent Total Time Spent with Patient: Total time spent is greater than 50% in coordination of care (as documented) at patient's floor/unit and/or counseling patient: Coding Level of Care Code 06702 Initial Inpt Care Lvl 3 Diagnoses Abdominal pain R10.9
[2022-06-30] MEDS ORDERED: ONDANSETRON INJ 2 MG/ML 2 ML VIAL IV PRN (09:14)
[2022-06-30] MEDS: LACTATED RINGER'S 1,000 ML IV SCH ×3 (11:08→23:32)
[2022-06-30] MEDS: MoRPHine SULFATE 4 MG/ML 1 ML CARP\\VIAL IV PRN ×3 (11:56→20:26)
[2022-06-30] MEDS ORDERED: cloNIDine HCL 0.1 MG TAB PO PRN (13:36)
[2022-06-30] MEDS ORDERED: ALUMINUM/MAGNESIUM SUSP 18 ML, LIDOCAINE VISCOUS 2% SOLN 6 ML, BARCODE IDENTIFIER 1 EACH PO ONE (14:00)
[2022-06-30] MEDS ORDERED: PROMETHAZINE HCL 12.5 MG in SODIUM CHLORIDE 0.9% 50 ML IV PRN (14:49)
[2022-06-30] MEDS: ONDANSETRON INJ 2 MG/ML 2 ML VIAL IV PRN (15:12)
[2022-06-30] MEDS: lisinopril 20 MG TAB PO SCH (15:37)
[2022-06-30] MEDS: DOCUSATE SODIUM/SENNA 50/8.6MG TAB PO SCH ×2 (15:39→20:25)
[2022-06-30] MEDS ORDERED: GABAPENTIN 600 MG TAB PO PRN (16:34)
[2022-06-30] MEDS: SUCRALFATE 1 GM/10 ML UDC PO PRN ×2 (17:38→23:31)
[2022-06-30] MEDS: BUPRENORPHINE/NALOXONE 8/2 MG TAB SL SCH (20:23)
[2022-06-30] MEDS: FAMOTIDINE 20 MG TAB PO SCH (20:25)
[2022-06-30] MEDS: HEPARIN SOD 5,000 UNIT/0.5 ML VIAL SQ SCH (20:25)
[2022-06-30] MEDS: FLUTICASONE PROPIONATE NA SPR 16 GM BTL NAE SCH (20:25)
[2022-07-01] MEDS: LACTATED RINGER'S 1,000 ML IV SCH ×2 (05:56→12:49)
[2022-07-01 07:05] LABS: Basophils # (auto) 0.06 K/uL (0-0.2); Eosinophils # (auto) 0.06 K/uL (0-0.50); Hematocrit (blood only) 35.9 % (40.1-51.0); Hemoglobin 12.2 g/dl (14.0-18.0); Immature Granulocytes # (auto) 0.02 K/uL (0.00-0.02); Immature Granulocytes % (auto) 0.3 %; Lymphocytes # (auto) 1.98 K/uL (1.2-3.4); Lymphocytes % (auto) 33.1 %; Mean Corpuscular Hemoglobin 30.2 pg (25.0-34.0); Mean Corpuscular Volume 88.9 fL (80.0-100.0); Mean Platelet Volume 10.7 fL (9.4-12.4); Monocytes # (auto) 0.67 K/uL (0.24-0.82); Monocytes % (auto) 11.2 %; Neutrophils % (auto) 53.4 %; Platelet Count 192 K/uL (130-400); RDW Coefficient of Variation 12.5 % (11.5-14.5); RDW Standard Deviation 40.9 fL (36.4-46.3); Red Blood Count 4.04 M/uL (4.63-6.08); White Blood Count 5.99 K/ul (4.8-10.8)
[2022-07-01 07:34] LABS: Albumin Globulin Ratio 1.8 (0.9-2); Albumin Level 3.4 gm/dl (3.4-5.0); BUN Creatinine Ratio 10.1 (10-20); Bilirubin,Total 0.7 mg/dl (0.2-1.0); Calcium 8.6 mg/dl (8.5-10.1); Creatinine Clr Calc Pharmacy 116.7 ml/min; Est GFR (African American) 121.3 ml/min; Est GFR (Non-African American) 104.6 ml/min; Globulin 1.9 gm/dl (2.5-4.0); Potassium 4.5 mmol/L (3.5-5.1); Total Protein 5.3 gm/dl (6.0-8.3)
[2022-07-01] MEDS: MoRPHine SULFATE 4 MG/ML 1 ML CARP\\VIAL IV PRN ×2 (07:40→18:31)
[2022-07-01] MEDS: CYANOCOBALAMIN (B-12) 500 MCG TABLET PO SCH (09:12)
[2022-07-01] MEDS: BUPRENORPHINE/NALOXONE 8/2 MG TAB SL SCH ×2 (09:12→20:50)
[2022-07-01] MEDS: CITALOPRAM 20 MG TAB PO SCH (09:12)
[2022-07-01] MEDS: HEPARIN SOD 5,000 UNIT/0.5 ML VIAL SQ SCH ×2 (09:13→20:51)
[2022-07-01] MEDS: DOCUSATE SODIUM/SENNA 50/8.6MG TAB PO SCH ×2 (09:13→20:50)
[2022-07-01] MEDS: lisinopril 20 MG TAB PO SCH (09:13)
[2022-07-01] MEDS: FLUTICASONE PROPIONATE NA SPR 16 GM BTL NAE SCH ×2 (09:13→20:28)
[2022-07-01] MEDS: PANTOprazole 40 MG TAB PO SCH (09:13)
[2022-07-01] MEDS ORDERED: DOCUSATE SODIUM/SENNA 50/8.6MG TAB PO STA (13:39)
[2022-07-01] MEDS ORDERED: linaCLOtide 72 MCG CAPSULE PO STA (13:46)
--- NOTE | 2022-07-01 13:49 | Hospitalist Progress Note ---
Date of Service July 01, 2022 Assessment & Plan (1) Abdominal pain: Plan: Patient has intermittent episodic abdominal pains so significant they require hospitalization. Previous attacks appear to be related to constipation therefore hopefully resolution in this will help. He is under investigation for these symptoms under gastroenterology. - Stop IV fluids, advance to regular diet - antiemetics and morphine for pain as needed (2) Chronic constipation: Plan: Senna/docusate 1 tab BID prescribed on admission. Will give additional 2 tabs now and start on Linzess 72 mcg PO. (3) GERD (gastroesophageal reflux disease): Plan: Continue pantoprazole 40mg PO daily and famotidine 20mg PO daily (4) Chronic prescription opiate use: Plan: Continue Suboxone 1 tab BID (5) Hypertension: Plan: Continue lisinopril 20mg PO daily Plan VTE Prophylaxis - heparin 5000 units BID Diet - advance to regular Disposition - continue on med/surg pending stability in symptoms Admission and Anticipated Discharge Date Admission Date: June 30, 2022 Subjective Patient reports good resolution of his symptoms. Wishes to be advanced to a regular diet. No nausea, vomiting or abdominal pain. He reports not yet having a bowel movement. Unable to case picker montegrity from [facility]. Reports usually needing 4 tablets of senna to get his bowel moving. Linzess also works well - higher doses causing him to go for days. Review of Systems Review of Systems: All systems reviewed & are unremarkable except as noted in Subjective Physical Exam Constitutional: WD/WN, vitals as above Respiratory: normal respiratory effort, lungs clear to auscultation Cardiovascular: RRR, no murmur, no edema Gastrointestinal (Abdomen): normal bowel sounds, soft, nontender, no hepatosplenomegaly Results & Data Results & Data ([facility]) Vital Signs (Past 12 Hours) Vital Signs Temp Pulse Pulse Resp BP Pulse Ox O2 Del Method 07/01/22 07:14 36.8 C 76 16 111/71 96 Room Air 07/01/22 06:00 36.9 C 72 72 18 124/76 95 Room Air PG Care Time/CCT Total # of Minutes Spent Total Time Spent with Patient: Total time spent is greater than 50% in coordination of care (as documented) at patient's floor/unit and/or counseling patient: Coding Level of Care Code 99125 Subseq Hosp Care Lvl 2 Diagnoses Abdominal pain R10.9 Chronic constipation K59.09 GERD (gastroesophageal reflux disease) K21.9 Chronic prescription opiate use Z79.891 Hypertension I10
[2022-07-01] MEDS: ONDANSETRON INJ 2 MG/ML 2 ML VIAL IV PRN (18:31)
[2022-07-01] MEDS: FAMOTIDINE 20 MG TAB PO SCH (20:51)
[2022-07-01] MEDS: SUCRALFATE 1 GM/10 ML UDC PO PRN (23:25)
[2022-07-02] MEDS ORDERED: CALCIUM CARBONATE 500 MG CHEWABLE TAB PO ONE (04:02)
[2022-07-02] MEDS: DOCUSATE SODIUM/SENNA 50/8.6MG TAB PO SCH (08:41)
[2022-07-02] MEDS: CITALOPRAM 20 MG TAB PO SCH (08:41)
[2022-07-02] MEDS: PANTOprazole 40 MG TAB PO SCH (08:41)
[2022-07-02] MEDS: CYANOCOBALAMIN (B-12) 500 MCG TABLET PO SCH (08:42)
[2022-07-02] MEDS: HEPARIN SOD 5,000 UNIT/0.5 ML VIAL SQ SCH (08:42)
[2022-07-02] MEDS: FLUTICASONE PROPIONATE NA SPR 16 GM BTL NAE SCH (08:42)
[2022-07-02] MEDS: BUPRENORPHINE/NALOXONE 8/2 MG TAB SL SCH (08:45)
--- NOTE | 2022-07-02 13:54 | Discharge Summary ---
Date of Service July 02, 2022 Admission HPI Per Admitting Provider This is a 56-year-old male who presented to [facility] secondary to abdominal pain. He notes that the patient had sudden onset of abdominal pain approximately 3 days ago. He describes the pain as a stabbing pain without palliative or provocative factors. He notes that the pain is located primarily in the epigastric area and does not radiate. The patient notes that he has not had any fevers. He denies any cough or shortness of breath. He denies any dysuria. He denies eating any poorly or undercooked food. He states that no close contacts are ill. With his current symptomatology he does not have any diarrhea. It is nowhere the mention that the patient was admitted to [facility] earlier this month with intractable nausea and vomiting. He was seen by gastroenterology during this that visit and supportive care was employed. The patient's symptomatology improved and he was able to be discharged home. Today in the emergency department patient had labs and imaging which I independently reviewed. A CBC revealed white blood cell count, hemoglobin, hematocrit, platelet count were all within normal range. Chemistry profile showed sodium, potassium, BUN, and creatinine were within normal range. There is no elevation of patient's LFTs. He was noted to have a slight elevation of his lipase at 217. Review of records show that his lipase is chronically elev ated. An EKG showed normal sinus rhythm without changes indicative of acute ischemia. A CT scan of the abdomen pelvis showed patient had some diffuse colonic wall thickening concerning for an infectious or inflammatory colitis. On this imaging study his pancreas did not show any abnormalities, specifically no pseudocyst. There is no evidence of obstruction. In the emergency department the patient has received antiemetics in the form of Phenergan and Zofran without alleviation of his symptoms. At the time of my interview the patient was in no distress but he did appear somewhat uncomfortable. Principal Diagnosis Recurrent abdominal pain, nausea and vomiting Discharge Exam Constitutional WD/WN, vitals as above Respiratory normal respiratory effort, lungs clear to auscultation Cardiovascular RRR, no murmur, no edema Gastrointestinal (Abdomen) normal bowel sounds, soft, nontender, no hepatosplenomegaly Discharge Data Allergies Allergy/AdvReac Type Severity Reaction Status Date / Time No Known Allergies Allergy Verified 05/02/22 09:11 Consultations 06/30/22 09:07 ED Decision to Admit Stat Ordered Studies 06/30/22 06:45 CT Abd and Pelvis [CT abd pelvis IV con only] Stat IMPRESSION: 1. There is diffuse colonic wall thickening which may be related to infectious/inflammatory colitis. There is no evidence of obstruction. 2. Postsurgical changes of esophagectomy and gastric pull-through are seen. 3. Thickening of the bladder wall is nonspecific, correlation with urinalysis is recommended to exclude cystitis. Hospital Course (1) Abdominal pain: Shahbaz Arechiga is a 56 year old male admitted to [facility] from June 30 - 2021 due to intractable nausea, vomiting and abdominal pain. He continues to have episodic similar episodes and follows with gastroenterology for this and resolves with conservative treatment or bowel rest and intravenous fluids. He should continue to use his outpatient laxatives to aim for a bowel movement daily as this has been associated with episodes in the past. Recommend he continues to follow up with your gastroenterology for ongoing management of this condition. This appears to fit with cyclic vomiting syndrome but will defer to his outpatient providers for a diagnosis. His blood pressure has been intermittently low during his hospitalization however asymptomatic with this. He was advised to stop his lisinopril if feeling dizzy or lightheaded and follow up with his primary care provider. Total Time Total Time Spent Total Time Spent (In Minutes): 25 Discharge Plan Discharge Items Patient Disposition: Home - Self-Care Reason For Visit: ABD PAIN,PANCREATITIS,COLITIS Discharge Diagnosis: Recurrent abdominal pain, nausea and vomiting Activity: Resume your previous activity Non-emergency contact: Diamond Grinder Call non-emergency contact if: you have any medication questions and your symptoms worsen Follow-up/Referrals: Vivi Beverly MD [Primary Care Provider] - 07/05/22 1:00 pm (APPT WITH DR KIM) Elizabeth Griffin MD [Physician] - 07/18/22 (YOU ARE SCHEDULED AT [facility] FOR PROCEDURE...SMALL BOWEL ENTEROSCOPY PROCEDURE. THE HOSPITAL WILL CALL YOU WITH A TIME FOR ARRIVAL THE DAY BEFORE) Diet: Regular Addtl Attending Provider Instructions: You were admitted to [facility] from June 30 - 2021 due to intractable nausea, vomiting and abdominal pain. This appears to be episodic and resolves with conservative treatment. Please continue to use your outpatient medications to aim for a bowel movement daily. Please follow up with your regulator assembler for ongoing management of this condition. Your blood pressure has been intermittently low during your hospitalization. If you are dizzy or light-headed recommend stopping your lisinopril medication and following up with your primary care provider. Kind regards, Dr Micky Rao Pending Studies at Discharge: No Stand-Alone Forms: [facility], Work/School Release, Smoking Cessation Medications and DC Order Prescriptions: Continued lisinopril 20 mg tablet 20 mg PO QAM Qty: 30 11RF clonidine HCl 0.1 mg tablet 0.1 mg PO BID PRN (Reason: Anxiety) Qty: 60 3RF citalopram 20 mg tablet 20 mg PO QAM Qty: 90 3RF fluticasone propionate 50 mcg/actuation spray,suspension 1 - 2 spray intranasal BID Qty: 16 5RF Rx Instructions: administer into each nostril gabapentin 300 mg capsule 600 mg PO TID PRN (Reason: Pain) Qty: 180 11RF dexlansoprazole 60 mg capsule,biphase delayed releas 60 mg PO DAILY Qty: 90 3RF buprenorphine-naloxone 8-2 mg Tablet, Sublingual 1 tab SUBLINGUAL BID cyanocobalamin (vitamin B-12) 500 mcg Tablet 1,000 mcg PO QAM Qty: 90 3RF Rx Instructions: purchase over the counter sucralfate 100 mg/mL suspension 1 g PO ACHS PRN (Reason: Acid Reflux) Label Comments: "I only take it at bedtime" famotidine [Pepcid] 40 mg tablet 20 mg PO QPM Motegrity 2 mg tablet 2 mg PO DAILY Discharge Orders: Discharge Order (Routine); Ordered 07/02/22 Ordered By: Micky Rao Admission Data Admit Date/Time: 06/30/22 09:18 Attending Provider: Micky Rao Admit Provider: Micky Rao Primary Care Provider: Vivi Beverly Other Providers: [place] Other Interventions: Discharge Summary Assessment (RN) Last Done: 07/02/22 13:56 Coding Level of Care Code D/C DAY MANAGEMENT <30 MINS Diagnoses Abdominal pain R10.9
== END 2022-07-02 14:48 | disposition home or self-care (01) | DRG 439 ==
LOC: ED 06:10 → SUATTDRO 09:18 → 3N 09:18

== ENCOUNTER 2022-09-07 06:43 | Observation (INO) ==
[2022-09-07 07:35] LABS: Basophils # (auto) 0.06 K/uL (0-0.2); Basophils % (auto) 0.8 %; Eosinophils # (auto) 0.04 K/uL (0-0.50); Eosinophils % (auto) 0.5 %; Hemoglobin 14.6 g/dl (14.0-18.0); Immature Granulocytes # (auto) 0.03 K/uL (0.00-0.02); Immature Granulocytes % (auto) 0.4 %; Lymphocytes # (auto) 1.33 K/uL (1.2-3.4); Lymphocytes % (auto) 16.9 %; Mean Corpuscular Hemoglobin 30.9 pg (25.0-34.0); Mean Corpuscular Volume 90.9 fL (80.0-100.0); Mean Platelet Volume 10.7 fL (9.4-12.4); Monocytes # (auto) 0.59 K/uL (0.24-0.82); Monocytes % (auto) 7.5 %; Neutrophils # (auto) 5.83 K/uL (1.4-6.5); Neutrophils % (auto) 73.9 %; Platelet Count 260 K/uL (130-400); Red Blood Count 4.73 M/uL (4.63-6.08); White Blood Count 7.88 K/ul (4.8-10.8)
[2022-09-07] MEDS ORDERED: MoRPHine SULFATE 4 MG/ML 1 ML CARP\\VIAL IV STA ×2 (07:46→12:52)
[2022-09-07 07:50] LABS: Albumin Globulin Ratio 1.5 (0.9-2); Albumin Level 4.3 gm/dl (3.4-5.0); BUN Creatinine Ratio 8.9 (10-20); Bilirubin,Total 0.6 mg/dl (0.2-1.0); Calcium 9.7 mg/dl (8.5-10.1); Creatinine Clr Calc Pharmacy 87.6 ml/min; Est GFR (African American) 108.7 ml/min; Est GFR (Non-African American) 93.8 ml/min; Globulin 2.8 gm/dl (2.5-4.0); Potassium 4.3 mmol/L (3.5-5.1); Total Protein 7.1 gm/dl (6.0-8.3)
[2022-09-07] MEDS ORDERED: ONDANSETRON INJ 2 MG/ML 2 ML VIAL IV STA (08:10)
[2022-09-07] MEDS ORDERED: SODIUM CHLORIDE 0.9% 1000ML 1,000 ML IV ONE (09:24)
[2022-09-07] MEDS ORDERED: PROMETHAZINE 25 MG/51 ML BAG IV STA (09:24)
--- NOTE | 2022-09-07 10:35 | Emergency Department Note ---
History of Present Illness General Chief complaint: Vomiting Stated complaint: vomiting Time Seen by Provider: 09/07/22 07:30 History of Present Illness Maximum Pain Intensity: 6 56-year-old male, history of pancreatitis, chronic abdominal pain, nausea and vomiting, who presents to the emergency department with complaint of recurrent generalized abdominal pain and vomiting since yesterday. The patient reports that he does have Zofran ODT's at home that are not helping with his nausea. Patient describes his emesis as yellow in color without blood. He denies any diarrhea, constipation or urinary symptoms. Patient denies any recent sick contacts. He denies chest pain, shortness of breath, fever or chills. The patient rates his overall discomfort an 8 out of 10. Home Medications Medication Instructions Recorded Confirmed Type buprenorphine 8 mg-naloxone 2 mg 1 tab sublingual BID 01/09/21 09/07/22 History sublingual tablet lisinopril 20 mg tablet 20 mg PO QAM #30 tabs 10/01/21 09/07/22 Rx famotidine 40 mg tablet (Pepcid) 20 mg PO QPM 11/27/21 09/07/22 History sucralfate 100 mg/mL oral 1 g PO ACHS PRN Acid Reflux 11/27/21 09/07/22 History suspension cyanocobalamin (vitamin B-12) 500 1,000 mcg PO QAM #90 tabs 03/08/22 09/07/22 Rx mcg tablet fluticasone propionate 50 1 - 2 spray intranasal BID #16 05/17/22 09/07/22 Rx mcg/actuation nasal grams spray,suspension prucalopride 2 mg tablet 2 mg PO DAILY 05/31/22 09/07/22 History (Motegrity) citalopram 40 mg tablet 40 mg PO DAILY #30 tabs 07/10/22 09/07/22 Rx clonidine HCl 0.1 mg tablet 0.1 mg PO BID PRN Anxiety #60 tabs 07/26/22 09/07/22 Rx nicotine See Rx Instructions transdermal 08/22/22 09/07/22 Rx 21mg/24hr-14mg/24hr-7mg/24hr daily .COMPLEX #56 patches transderm patches,sequentl dexlansoprazole 60 mg 60 mg PO DAILY #90 caps 08/27/22 09/07/22 Rx capsule,biphase delayed release gabapentin 300 mg capsule 900 mg PO TID Pain #270 caps 08/27/22 09/07/22 Rx multivitamin 1 tab PO DAILY 09/07/22 09/07/22 History plecanatide 3 mg tablet (Trulance) 3 mg PO DAILY 09/07/22 09/07/22 History Allergies Allergy/AdvReac Type Severity Reaction Status Date / Time No Known Allergies Allergy Verified 09/07/22 15:45 Past Med/Surg History Medical History Abdominal pain Abnormal weight loss Acute dehydration 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 dx'ed with esophageal cancer in 2007 EGD in 10/2020 did show Barretts with esophagitis and ulcers - put on PPI Candidal esophagitis S/p treatment after EGD Chronic pain Elevated lipase Esophageal cancer 2007 s/p chemo and radiation Fissure, anal Pt unsure if still present- getting repeat colonoscopy in the future Fracture of multiple thoracic vertebrae 25 years ago Gastro-esophageal reflux disease with esophagitis Uncontrolled Hepatitis C [id number] Intractable nausea and vomiting Iron deficiency anemia Lumbago Major depressive disorder Nausea & vomiting Nausea & vomiting Restless leg No current issues 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 Withdrawal from opioids Was on increased opioids in the past secondary to chronic back pain- weaned off pain medications- was taking herbal supplement (Kraton)= now using Suboxone to taper off supplement Surgical History H/O radical prostatectomy History of anesthesia reaction pt states he woke up during 2 EGD procedures and during shoulder sx History of colonoscopy History of cystoscopy History of esophagectomy 2007 History of esophagogastroduodenoscopy (EGD) recent 10/31/2020 History of nephrectomy, left History of repair of rotator cuff right and left shoulder History of right knee surgery meniscectomy Hx laparoscopic cholecystectomy Status post surgery neck surgery with hardware Family History Father Hypertension Myocardial infarction Coronary heart disease Mother Cancer Skin and Lung Brother Hypertension Other No family history of adverse response to anesthesia Denies family history of Ovarian cancer Prostate cancer Breast cancer Colorectal cancer Social History Smoking Status: Former smoker Tobacco Type: Cigarettes Second Hand Exposure: No; Hx Alcohol Use: No Hx Substance Use: Yes Substance Use Type Other:: SUBOXONE Preferred Language: Occitan Communication Ability: Effective Visual Impairment: No Limitations Hearing Ability: Normal Protection Specialist Required: No Beliefs That Will Affect Care: None marital status: Current Living Situation: Spouse current occupational status: employed 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 How many Children do You have: 2 Feels Safe at Home: Yes Childhood Exposure to Second-Hand Smoke: Yes caffeine: Yes Dental Care, Regularly: Yes Physical Activity Frequency: Daily Seatbelt Use: always Sunscreen Use: No Assistive Devices: None Review of Systems 10 system review was performed and was negative except for pertinent positives and negatives as indicated in history of present illness Physical Exam Vital Signs Vital Signs - 24 hr 09/07/22 06:46 09/07/22 07:10 09/07/22 07:22 Temperature 36.9 C Temperature Source Temporal Artery Scan Pulse Rate 84 88 Pulse Rate [Right Finger] 88 Respiratory Rate 16 20 20 Respiratory Effort / Characteristics Non-Labored Spontaneous Non-Labored Spontaneous Respiratory Depth Normal Normal Respiratory Pattern Regular Blood Pressure 157/104 H Blood Pressure [Right Arm] 164/103 H Blood Pressure Mean 121 Blood Pressure Mean [Right Arm] 123 Blood Pressure Position Sitting Blood Pressure Position [Right Arm] Sitting Pulse Oximetry 100 100 100 Oxygen Delivery Method Room Air Room Air Room Air Sepsis Recent Fever Within 48 Hours No Sepsis New/Unexplained Change in Mental Status N/A Sepsis Action Taken by Nursing No Action Required 09/07/22 07:58 09/07/22 08:20 09/07/22 09:00 Temperature Temperature Source Pulse Rate 79 Pulse Rate [Right Finger] 82 78 Respiratory Rate 20 18 20 Respiratory Effort / Characteristics Non-Labored Spontaneous Non-Labored Spontaneous Respiratory Depth Normal Normal Respiratory Pattern Regular Regular Blood Pressure 154/96 H Blood Pressure [Right Arm] 170/97 H 159/92 H Blood Pressure Mean 115 Blood Pressure Mean [Right Arm] 121 114 Blood Pressure Position Blood Pressure Position [Right Arm] Sitting Sitting Pulse Oximetry 96 97 97 Oxygen Delivery Method Room Air Room Air Room Air Sepsis Recent Fever Within 48 Hours Sepsis New/Unexplained Change in Mental Status Sepsis Action Taken by Nursing 09/07/22 09:30 09/07/22 10:00 09/07/22 11:00 Temperature Temperature Source Pulse Rate 74 85 78 Pulse Rate [Right Finger] Respiratory Rate 18 16 18 Respiratory Effort / Characteristics Respiratory Depth Respiratory Pattern Blood Pressure 144/85 H 169/97 H 159/99 H Blood Pressure [Right Arm] Blood Pressure Mean 104 121 119 Blood Pressure Mean [Right Arm] Blood Pressure Position Blood Pressure Position [Right Arm] Pulse Oximetry 98 98 100 Oxygen Delivery Method Room Air Room Air Room Air Sepsis Recent Fever Within 48 Hours Sepsis New/Unexplained Change in Mental Status Sepsis Action Taken by Nursing 09/07/22 11:31 09/07/22 11:31 09/07/22 12:00 Temperature Temperature Source Pulse Rate 86 81 Pulse Rate [Right Finger] Respiratory Rate 10 L 15 Respiratory Effort / Characteristics Respiratory Depth Respiratory Pattern Blood Pressure 168/97 H Blood Pressure [Right Arm] Blood Pressure Mean 120 Blood Pressure Mean [Right Arm] Blood Pressure Position Blood Pressure Position [Right Arm] Pulse Oximetry Oxygen Delivery Method Sepsis Recent Fever Within 48 Hours Sepsis New/Unexplained Change in Mental Status Sepsis Action Taken by Nursing 09/07/22 12:00 09/07/22 12:30 09/07/22 13:00 Temperature Temperature Source Pulse Rate 80 82 77 Pulse Rate [Right Finger] Respiratory Rate 18 20 18 Respiratory Effort / Characteristics Respiratory Depth Respiratory Pattern Blood Pressure 158/96 H 161/97 H 168/107 H Blood Pressure [Right Arm] Blood Pressure Mean 116 118 127 Blood Pressure Mean [Right Arm] Blood Pressure Position Blood Pressure Position [Right Arm] Pulse Oximetry 97 98 98 Oxygen Delivery Method Room Air Room Air Room Air Sepsis Recent Fever Within 48 Hours Sepsis New/Unexplained Change in Mental Status Sepsis Action Taken by Nursing CONSTITUTIONAL: Healthy and well nourished. Patient is holding an emesis bag with sputum. HEENT: Normocephalic, atraumatic. Pupils equal, round and reactive. No scleral icterus or conjunctival injection/pallor. NECK: Full active range of motion without discomfort. LYMPHATICS: No cervical chain adenopathy. RESPIRATORY: Clear to auscultation bilaterally with no wheezing, crackles, rhonchi or stridor. CARDIOVASCULAR: Regular rate and rhythm with no murmurs, rubs or gallops. GASTROINTESTINAL: Bowel sounds present in all quadrants. Patient has generalized abdominal tenderness to palpation. MUSCULOSKELETAL: Full range of motion of all joints without discomfort. INTEGUMENTARY: No rash or other significant dermatologic conditions noted. HEMATOLOGIC: No ecchymosis or petechiae. PSYCHIATRIC: Flat affect. NEUROLOGIC: Cranial nerves II-XII grossly intact. No focal neurologic deficits noted. Course Course Patient history and physical exam were performed. Nurses notes were reviewed. Vital signs were reviewed and were normal. Review of medical record shows that the patient has been in the emergency department multiple times in the past with similar presentation. His last ED visit was 2 months ago. The patient reports that he follows up with [facility]ando OROZ[facility], however their reports are not immediately available. Orders were placed per nursing protocol, all of which were performed prior to the beginning of my shift. I did order a normal saline liter bolus, as well as IV Zofran. This provided minimal relief of his nausea, and was therefore administered IV Phenergan with persistent nausea and vomiting. The patient was also administered IV morphine for pain. Review of labs did not show any significant findings on CBC. CMP shows normal electrolytes, LFTs and total bilirubin. Lipase is mildly elevated at 239. The patient was initially unable to provide a urine specimen. With his persistent nausea and vomiting, along with his abdominal pain, but I did recommend CT imaging of the abdomen. CT with IV contrast of the abdomen and pelvis did not show any concerning acute findings. The patient reported persistent nausea, and was then administered IV Compazine, along with additional IV morphine, all only providing mild relief of his nausea, and moderate leaf of his pain. At this point, I did recommend discussing his case with the [facility] hospitalist service for possible observation until his symptoms are controlled. The patient was in agreement. COVID-19 test was ordered, collected and was normal. Please see hospitalist dictations for further treatment and final disposition. Administered Medications Discontinued Medications Promethazine HCl (Phenergan) 25 mg in 51 mls @ 204 mls/hr IV NOW STA Stop: 09/07/22 09:38 Last Infusion: 09/07/22 09:44 Dose: 0 mls/hr Documented By: Admin: 09/07/22 09:28 Dose: 204 mls/hr Documented By: JOSEF Sodium Chloride (Nss 1000ml) 1,000 mls @ 999 mls/hr IV .Q1H1M ONE Stop: 09/07/22 10:24 Last Infusion: 09/07/22 10:36 Dose: 0 mls/hr Documented By: Admin: 09/07/22 09:28 Dose: 999 mls/hr Documented By: JOSEF Prochlorperazine (Compazine) 1 mls @ 1 mls/min IV ONE ONE Stop: 09/07/22 11:03 Last Admin: 09/07/22 11:25 Dose: 1 mls/min Documented By: JOSEF Ioversol (Optiray 350 100ml) 94 ml IV ONCE ONE Stop: 09/07/22 11:12 Last Admin: 09/07/22 11:12 Dose: 94 ml Documented By: BRIONNA Morphine Sulfate (Morphine Sulfate 4 Mg/Ml 1 Ml Carp\Vial) 4 mg IV NOW STA Stop: 09/07/22 07:47 Last Admin: 09/07/22 07:51 Dose: 4 mg Documented By: JOSEF Morphine Sulfate (Morphine Sulfate 4 Mg/Ml 1 Ml Carp\Vial) 4 mg IV NOW STA Stop: 09/07/22 12:53 Last Admin: 09/07/22 14:14 Dose: Not Given Documented By: JOSEF Ondansetron HCl (Ondansetron Inj 2 Mg/Ml 2 Ml Vial) 4 mg IV NOW STA Stop: 09/07/22 08:11 Last Admin: 09/07/22 08:13 Dose: 4 mg Documented By: JOSEF Medical Decision Making Medical Records Attestation: I reviewed the patient's medical records. Home Medications Current Medication List: was personally reviewed by me Laboratory Data Attestation: I reviewed the patient's lab results. Result diagrams: 09/07/22 07:08 09/07/22 07:08 Lab Results 09/07/22 09/07/22 Range/Units 07:08 07:08 WBC 7.88 (4.8-10.8) K/ul RBC 4.73 (4.63-6.08) M/uL Hgb 14.6 (14.0-18.0) g/dl Hct 43.0 (40.1-51.0) % MCV 90.9 (80.0-100.0) fL MCH 30.9 (25.0-34.0) pg MCHC 34.0 (32.0-36.0) g/dL RDW Std Deviation 40.0 (36.4-46.3) fL RDW Coeff of Dorothy 12.0 (11.5-14.5) % Plt Count 260 (130-400) K/uL MPV 10.7 (9.4-12.4) fL Immature Gran % (Auto) 0.4 % Neut % (Auto) 73.9 % Lymph % (Auto) 16.9 % [place] % (Auto) 7.5 % Eos % (Auto) 0.5 % Baso % (Auto) 0.8 % Neut # (Auto) 5.83 (1.4-6.5) K/uL Lymph # (Auto) 1.33 (1.2-3.4) K/uL [place] # (Auto) 0.59 (0.24-0.82) K/uL Eos # (Auto) 0.04 (0-0.50) K/uL Baso # (Auto) 0.06 (0-0.2) K/uL Immature Gran # (Auto) 0.03 H (0.00-0.02) K/uL Sodium 136 (136-145) mmol/L Potassium 4.3 (3.5-5.1) mmol/L Chloride 103 (98-107) mmol/L Carbon Dioxide 26 (21-32) mmol/L Anion Gap 7 (3-11) BUN 8 (6-23) mg/dl Creatinine 0.90 (0.6-1.4) mg/dl Est Cr Clr Drug Dosing 87.6 ml/min Est GFR ( Amer) 108.7 ml/min Est GFR (Non-Af Amer) 93.8 ml/min BUN/Creatinine Ratio 8.9 L (10-20) Glucose 120 H (70-99(Fasting)) mg/dl Calcium 9.7 (8.5-10.1) mg/dl Total Bilirubin 0.6 (0.2-1.0) mg/dl AST 18 (13-39) U/L ALT 19 (7-52) U/L Alkaline Phosphatase 81 (34-104) U/L Total Protein 7.1 (6.0-8.3) gm/dl Albumin 4.3 (3.4-5.0) gm/dl Globulin 2.8 (2.5-4.0) gm/dl Albumin/Globulin Ratio 1.5 (0.9-2) Lipase 239 H (11-82) U/L Imaging Data Attestation: I personally reviewed and interpreted this imaging study as follows: My Impression: My interpretation of a CT with IV contrast does not show evidence for acute pancreatitis, bowel obstruction, free air or other concerning intra-abdominal findings. Radiologist report was also reviewed. Radiologist's Impression: Abdomen/Pelvis CT 09/07/22 10:35 CT SCAN OF THE ABDOMEN AND PELVIS WITH IV CONTRAST CLINICAL HISTORY: Generalized abdominal pain. Nausea and vomiting. COMPARISON STUDY: Abdominal CT dated 06/30/2022. TECHNIQUE: Following the IV administration of 94 cc of Optiray 350, CT scan of the abdomen and pelvis is performed from the lung bases to the proximal femora. Images are reviewed in the axial, sagittal, and coronal planes. IV contrast was administered without complication. A dose lowering technique was utilized adhering to the principles of ALARA. CT DOSE: 289.90 mGy.cm FINDINGS: Lung bases: The heart is normal in size and without pericardial effusion. The lung bases are clear noting bibasilar scarring/atelectasis. There is postoperative change from a gastric pull-through procedure. Liver: The contrast-enhanced liver is normal in size, contour, and attenuation. Fatty infiltration is seen adjacent to the gallbladder fossa. There is no intrahepatic biliary ductal dilatation. The hepatic veins and portal veins are patent. Gallbladder: Surgically absent noting clips in the gallbladder fossa. Spleen: Normal in size and attenuation. Pancreas: The pancreas is moderately atrophic. Mild dilatation of the pancreatic duct is similar to previous. Adrenal glands: Unremarkable. Kidneys: The contrast enhanced kidneys are normal in size and without hydronephrosis. The kidneys enhance symmetrically. Partial nephrectomy change is noted in the left lower lobe. Abdominal vasculature: The abdominal aorta is normal in course and caliber noting moderate atherosclerotic calcification. Bowel: There is moderate fecal retention in the right colon. No bowel obstruction is seen. The appendix is well-visualized and normal Peritoneum: There is no intraperitoneal free air or abdominal ascites. Lymphadenopathy: None. Pelvic viscera: The prostate gland is surgically absent. The bladder is distended and the wall appears thickened/trabeculated indicating chronic outlet obstruction. Question mild strandy infiltration. Skeletal structures: The skeletal structures are osteopenic. No lytic or blastic lesions are seen. There is a subacute left anterior 6th rib fracture. IMPRESSION: 1. No acute infectious or inflammatory findings are identified in the abdomen or pelvis. 2. Status post esophagectomy with gastric pull-through procedure. No bowel obstruction is seen. 3. Status post left partial nephrectomy, cholecystectomy, and prostatectomy. 4. The bladder wall appears thickened and trabeculated. This is likely related to chronic outlet obstruction. Correlate with urinalysis. 5. Additional findings as above. ACT 112: Negative or not required by law. Electronically signed by: Param Li M.D. 09/07/2022 11:40 AM Prescription Drug Monitoring [place] Drug Monitoring Program reviewed and findings noted below (Patient is on Camilo boxone) Blood Pressure Blood Pressure Findings: Normal blood pressure MDM Narrative Patient presents to the emergency department with complaint of nausea, vomiting and abdominal pain. The patient does have a longstanding history of abdominal pain with intractable nausea and vomiting. He has been seen in the emergency department multiple times, as well as admissions for the same. He also reports and has a history of pancreatitis, currently under the management of Armando OROZ[facility]. Although the patient's lipase is mildly elevated, CT imaging does not show evidence for acute pancreatitis. Because of his intractable nausea and vomiting, I do feel that observation is warranted, and was discussed further with hospitalists. Impression & Plan Intractable vomiting with nausea, Chronic abdominal pain, History of pancreatitis Discharge Plan Visit Data Chief Complaint: Vomiting Stated Complaint: vomiting ED Provider: Madisyn Raman ED Midlevel Provider: Jam Patton Discharge Problem: Intractable vomiting with nausea, Chronic abdominal pain, History of pancreati tis
[2022-09-07] MEDS ORDERED: PROCHLORPERAZINE 1 ML IV ONE (11:02)
[2022-09-07] MEDS ORDERED: OPTIRAY 350 100ml IV ONE (11:11)
--- NOTE | 2022-09-07 11:42 | CT Scan Report ---
CT SCAN OF THE ABDOMEN AND PELVIS WITH IV CONTRAST CLINICAL HISTORY: Generalized abdominal pain. Nausea and vomiting. COMPARISON STUDY: Abdominal CT dated 06/30/2022. TECHNIQUE: Following the IV administration of 94 cc of Optiray 350, CT scan of the abdomen and pelvi s is performed from the lung bases to the proximal femora. Images are reviewed in the axial, sagittal , and coronal planes. IV contrast was administered without complication. A dose lowering technique wa s utilized adhering to the principles of ALARA. CT DOSE: 289.90 mGy.cm FINDINGS: Lung bases: The heart is normal in size and without pericardial effusion. The lung bases are clear no ting bibasilar scarring/atelectasis. There is postoperative change from a gastric pull-through proced ure. Liver: The contrast-enhanced liver is normal in size, contour, and attenuation. Fatty infiltration is seen adjacent to the gallbladder fossa. There is no intrahepatic biliary ductal dilatation. The hepa tic veins and portal veins are patent. Gallbladder: Surgically absent noting clips in the gallbladder fossa. Spleen: Normal in size and attenuation. Pancreas: The pancreas is moderately atrophic. Mild dilatation of the pancreatic duct is similar to p revious. Adrenal glands: Unremarkable. Kidneys: The contrast enhanced kidneys are normal in size and without hydronephrosis. The kidneys enh ance symmetrically. Partial nephrectomy change is noted in the left lower lobe. Abdominal vasculature: The abdominal aorta is normal in course and caliber noting moderate atheroscle rotic calcification. Bowel: There is moderate fecal retention in the right colon. No bowel obstruction is seen. The append ix is well-visualized and normal Peritoneum: There is no intraperitoneal free air or abdominal ascites. Lymphadenopathy: None. Pelvic viscera: The prostate gland is surgically absent. The bladder is distended and the wall appear s thickened/trabeculated indicating chronic outlet obstruction. Question mild strandy infiltration. Skeletal structures: The skeletal structures are osteopenic. No lytic or blastic lesions are seen. Th ere is a subacute left anterior 6th rib fracture. IMPRESSION: 1. No acute infectious or inflammatory findings are identified in the abdomen or pelvis. 2. Status post esophagectomy with gastric pull-through procedure. No bowel obstruction is seen. 3. Status post left partial nephrectomy, cholecystectomy, and prostatectomy. 4. The bladder wall appears thickened and trabeculated. This is likely related to chronic outlet obst ruction. Correlate with urinalysis. 5. Additional findings as above. ACT 112: Negative or not required by law. Electronically signed by: Param Li M.D. 09/07/2022 11:40 AM
--- NOTE | 2022-09-07 12:52 | Emergency Department Note ---
ED Visit Note I was consulted by the Advanced Practice Provider. I saw the patient personally and performed a substantive portion of the visit. This includes aspects of the HPI, MDM, diagnostic interpretations, and disposition/plan. .
--- NOTE | 2022-09-07 13:06 | History & Physical Report ---
Date of Service September 07, 2022 Assessment & Plan (1) Abdominal pain: Plan: - Patient has longstanding history of abdominal pain with intractable nausea and vomiting, typically exacerbated due to his chronic constipation. - Lipase of 239 which is elevated degree chronically, his labs and imaging are unremarkable for any acute process. - We will place him on clear liquid diet for now with IVF, antiemetics and analgesics ordered. - He follows with Armando [facility], recently had an enteroscopy on 07/18: * Reflux esophagitis with no bleeding, esophagogastric anastomosis was found, duodenum appeared normal, there is a single nonbleeding angiectasia in the jejunum treated with APC (2) Hypertension: Plan: - Continue lisinopril. (3) Depression: Plan: - Continue Celexa. (4) Murry esophagus: Plan: - Continue Pepcid, Carafate. - Takes dexlansoprazole, convert to hospital formulary PPI. (5) History of tobacco abuse: Plan: - Nicotine patch ordered. (6) Opioid abuse: Plan: - On Suboxone therapy, continue 1 tab twice daily while in hospital. (7) Chronic constipation: Plan: - Continue MiraLAX, Motegrity, Linzess. - Chronic Suboxone use likely contributing to constipation Plan - POsbt on med/surg. - SCDs for VTE ppx. - Full Code. History of Present Illness Chief Complaint: intractable nausea, vomiting, abdominal pain x 1 day Primary Care Provider: Vivi Beverly MD Shahbaz Arechiga is a 56 y/o male with a past medical history esophageal cancer s/p esophagectomy and pull through, prostate cancer, renal cell carcinoma, chronic constipation, chornic nausea/vomiting, chronic abdominal pain, Murry's esophagus GERD, hypertension, iron deficiency anemia presents today with recurrent general abdominal pain and vomiting that began yesterday. He was prescribed Zofran at home which has not helped him as it normally does. His vomit has been yellow in appearance without any blood. He has not had any diarrhea, worsening of his constipation which is chronic, or urinary symptoms. No fever or chills. No recent sick contacts. Abdominal pain feels consistent with his chronic pain, however exacerbated today. On presentation, patient has been mildly hypertensive, otherwise vital signs within normal limits and stable. Labs largely unrevealing, his lipase is mildly elevated to 239 as it has been over the past several months. There are no electrolyte abnormalities, leukocytosis, transaminitis, his renal function is at baseline. CT of the abdomen and pelvis does not show any infectious or inflammatory findings, he is s/p esophagectomy with pull-through procedure, no obstruction seen. S/p left partial nephrectomy, cholecystectomy and prostatectomy. Bladder wall is thickened and trabeculated likely representing chronic outlet obstruction. Allergies Allergy/AdvReac Type Severity Reaction Status Date / Time No Known Allergies Allergy Verified 09/07/22 15:45 Home Medications Medication Instructions Recorded Confirmed Type buprenorphine 8 mg-naloxone 2 mg 1 tab sublingual BID 01/09/21 09/07/22 History sublingual tablet lisinopril 20 mg tablet 20 mg PO QAM #30 tabs 10/01/21 09/07/22 Rx famotidine 40 mg tablet (Pepcid) 20 mg PO QPM 11/27/21 09/07/22 History sucralfate 100 mg/mL oral 1 g PO ACHS PRN Acid Reflux 11/27/21 09/07/22 History suspension cyanocobalamin (vitamin B-12) 500 1,000 mcg PO QAM #90 tabs 03/08/22 09/07/22 Rx mcg tablet fluticasone propionate 50 1 - 2 spray intranasal BID #16 05/17/22 09/07/22 Rx mcg/actuation nasal grams spray,suspension prucalopride 2 mg tablet 2 mg PO DAILY 05/31/22 09/07/22 History (Motegrity) citalopram 40 mg tablet 40 mg PO DAILY #30 tabs 07/10/22 09/07/22 Rx clonidine HCl 0.1 mg tablet 0.1 mg PO BID PRN Anxiety #60 tabs 07/26/22 09/07/22 Rx nicotine See Rx Instructions transdermal 08/22/22 09/07/22 Rx 21mg/24hr-14mg/24hr-7mg/24hr daily .COMPLEX #56 patches transderm patches,sequentl dexlansoprazole 60 mg 60 mg PO DAILY #90 caps 08/27/22 09/07/22 Rx capsule,biphase delayed release gabapentin 300 mg capsule 900 mg PO TID Pain #270 caps 08/27/22 09/07/22 Rx multivitamin 1 tab PO DAILY 09/07/22 09/07/22 History plecanatide 3 mg tablet (Trulance) 3 mg PO DAILY 09/07/22 09/07/22 History Past Med/Surg History Medical History Abdominal pain Abnormal weight loss Acute dehydration 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 dx'ed with esophageal cancer in 2007 EGD in 10/2020 did show Barretts with esophagitis and ulcers - put on PPI Candidal esophagitis S/p treatment after EGD Chronic pain Elevated lipase Esophageal cancer 2007 s/p chemo and radiation Fissure, anal Pt unsure if still present- getting repeat colonoscopy in the future Fracture of multiple thoracic vertebrae 25 years ago Gastro-esophageal reflux disease with esophagitis Uncontrolled Hepatitis C [id number] Intractable nausea and vomiting Iron deficiency anemia Lumbago Major depressive disorder Nausea & vomiting Nausea & vomiting Restless leg No current issues 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 Withdrawal from opioids Was on increased opioids in the past secondary to chronic back pain- weaned off pain medications- was taking herbal supplement (Kraton)= now using Suboxone to taper off supplement Surgical History H/O radical prostatectomy History of anesthesia reaction pt states he woke up during 2 EGD procedures and during shoulder sx History of colonoscopy History of cystoscopy History of esophagectomy 2007 History of esophagogastroduodenoscopy (EGD) recent 10/31/2020 History of nephrectomy, left History of repair of rotator cuff right and left shoulder History of right knee surgery meniscectomy Hx laparoscopic cholecystectomy Status post surgery neck surgery with hardware Family History Father Hypertension Myocardial infarction Coronary heart disease Mother Cancer Skin and Lung Brother Hypertension Other No family history of adverse response to anesthesia Denies family history of Ovarian cancer Prostate cancer Breast cancer Colorectal cancer Social History Smoking Status: Current some day smoker Tobacco Type: Cigarettes Second Hand Exposure: No; Do You Dip or Chew Tobacco: No; Hx Alcohol Use: Yes Alcohol type: beer Hx Substance Use: No Preferred Language: Indonesian Communication Ability: Effective Visual Impairment: No Limitations Hearing Ability: Normal Chest Painting And Sealing Supervisor Required: No Beliefs That Will Affect Care: None marital status: Current Living Situation: Spouse current occupational status: employed 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 How many Children do You have: 2 Other Information That Helps Us Care for You: No Feels Safe at Home: Yes Safety Concerns: Feels Safe At This Time Childhood Exposure to Second-Hand Smoke: Yes caffeine: Yes Dental Care, Regularly: Yes Physical Activity Frequency: Daily Seatbelt Use: always Sunscreen Use: No Assistive Devices: None Review of Systems Review of Systems: Constitutional: No fever/chills, weakness, fatigue, myalgias, anorexia, night sweats Eyes: No diplopia, no worsening or blurred vision ENT: normal hearing, no trouble swallowing Respiratory: No cough, sputum, dyspnea at rest or on exertion Cardiovascular: No chest pain, tightness or palpitations Abdomen: upper abdominal pain, nausea, vomiting x1 day, no melena, hematochezia, hematemesis, diarrhea, constipation : Denies dysuria, hematuria, increased urgency/frequency, urinary retention Musculoskeletal: No joint pain, calf pain, swelling Neurologic: No weakness, numbness/tingling, or balance problems Psychiatric: No anxiety or depression Skin: No rash or itch Physical Exam Physical Exam: General: awake, alert, no apparent distress Head: Normocephalic, atraumatic ENT: PERRL, EOMI, no pharyngeal exudate, mucous membranes moist Chest: Clear to auscultation, on room air, no adventitious breath sounds Cardiac: Regular rate and rhythm, no murmur, no JVD, normal peripheral pulses, good capillary refill Abdominal: mildly TTP in epigastrium; NABS x 4 quadrants, soft, otherwise nontender to palpation, no rebound, guarding or tenderness Extremities: Normal inspection, no peripheral edema or erythema, calfs nontender to palpation Psych: Normal mood and affect Neuro: AAO x 3, strength intact bilaterally and rated 5/5, no motor deficits, speech is clear, no peripheral sensory deficits Skin: no rash or erythema Results & Data Results & Data ([facility]) Vital Signs (Past 12 Hours) Vital Signs Temp Pulse Pulse Resp BP BP Pulse Ox 09/07/22 12:00 81 15 09/07/22 11:31 86 10 L 09/07/22 11:31 168/97 H 09/07/22 11:00 78 18 159/99 H 100 09/07/22 10:00 85 16 169/97 H 98 09/07/22 09:30 74 18 144/85 H 98 09/07/22 09:00 79 20 154/96 H 97 09/07/22 08:20 78 18 159/92 H 97 09/07/22 07:58 82 20 170/97 H 96 09/07/22 07:22 88 20 100 09/07/22 07:10 88 20 164/103 H 100 09/07/22 06:46 36.9 C 84 16 157/104 H 100 O2 Del Method 09/07/22 12:00 09/07/22 11:31 09/07/22 11:31 09/07/22 11:00 Room Air 09/07/22 10:00 Room Air 09/07/22 09:30 Room Air 09/07/22 09:00 Room Air 09/07/22 08:20 Room Air 09/07/22 07:58 Room Air 09/07/22 07:22 Room Air 09/07/22 07:10 Room Air 09/07/22 06:46 Room Air Laboratory Results Abnormal lab results 09/07/22 09/07/22 Range/Units 07:08 07:08 Immature Gran # (Auto) 0.03 H (0.00-0.02) K/uL BUN/Creatinine Ratio 8.9 L (10-20) Glucose 120 H (70-99(Fasting)) mg/dl Lipase 239 H (11-82) U/L Diagnostic Findings Abdomen/Pelvis CT 09/07/22 10:35 CT SCAN OF THE ABDOMEN AND PELVIS WITH IV CONTRAST CLINICAL HISTORY: Generalized abdominal pain. Nausea and vomiting. COMPARISON STUDY: Abdominal CT dated 06/30/2022. TECHNIQUE: Following the IV administration of 94 cc of Optiray 350, CT scan of the abdomen and pelvis is performed from the lung bases to the proximal femora. Images are reviewed in the axial, sagittal, and coronal planes. IV contrast was administered without complication. A dose lowering technique was utilized adhering to the principles of ALARA. CT DOSE: 289.90 mGy.cm FINDINGS: Lung bases: The heart is normal in size and without pericardial effusion. The lung bases are clear noting bibasilar scarring/atelectasis. There is postoperative change from a gastric pull-through procedure. Liver: The contrast-enhanced liver is normal in size, contour, and attenuation. Fatty infiltration is seen adjacent to the gallbladder fossa. There is no intrahepatic biliary ductal dilatation. The hepatic veins and portal veins are patent. Gallbladder: Surgically absent noting clips in the gallbladder fossa. Spleen: Normal in size and attenuation. Pancreas: The pancreas is moderately atrophic. Mild dilatation of the pancreatic duct is similar to previous. Adrenal glands: Unremarkable. Kidneys: The contrast enhanced kidneys are normal in size and without hydronephrosis. The kidneys enhance symmetrically. Partial nephrectomy change is noted in the left lower lobe. Abdominal vasculature: The abdominal aorta is normal in course and caliber noting moderate atherosclerotic calcification. Bowel: There is moderate fecal retention in the right colon. No bowel obstruction is seen. The appendix is well-visualized and normal Peritoneum: There is no intraperitoneal free air or abdominal ascites. Lymphadenopathy: None. Pelvic viscera: The prostate gland is surgically absent. The bladder is distende d and the wall appears thickened/trabeculated indicating chronic outlet obstruction. Question mild strandy infiltration. Skeletal structures: The skeletal structures are osteopenic. No lytic or blastic lesions are seen. There is a subacute left anterior 6th rib fracture. IMPRESSION: 1. No acute infectious or inflammatory findings are identified in the abdomen or pelvis. 2. Status post esophagectomy with gastric pull-through procedure. No bowel obstruction is seen. 3. Status post left partial nephrectomy, cholecystectomy, and prostatectomy. 4. The bladder wall appears thickened and trabeculated. This is likely related to chronic outlet obstruction. Correlate with urinalysis. 5. Additional findings as above. ACT 112: Negative or not required by law. Electronically signed by: Param Li M.D. 09/07/2022 11:40 AM Code Status & VTE Plan Code Status Full Code. Supervising Physician Co-Signing Physician Notes Patient seen and examined, chart reviewed, case discussed with Citlaly Gregory PA-C and I agree with the assessment and plan as above except as otherwise noted Labs and images reviewed Julio is 56-year-old male with a history of esophageal cancer s/p esophagectomy with pull-through, prostate cancer, RCC, chronic abdominal pain/nausea/vomiting, Murry's esophagus, hypertension who presents with a recurrent episode of abdominal pain and nausea/vomiting not improved with his home medications. He is admitted for intractable nausea and supportive care. CTA does not show any acute findings, chronic postoperative findings and some bladder wall thickening are noted. Patient is nondistressed, breathing is unlabored, abdomen is without rigidity/rebound. Rate is regular. Agree with supportive care, continue PPI/clear/IV fluid control/antiemetics/analgesia as noted PG Care Time/CCT Total # of Minutes Spent Total Time Spent with Patient: Total time spent is greater than 50% in coordination of care (as documented) at patient's floor/unit and/or counseling patient: Coding Level of Care Code INT OBSERVATION CARE 70M LVL 3 Diagnoses Abdominal pain R10.9 Hypertension I10 Depression F32.A Murry esophagus K22.719 Murry's esophagus type: with dysplasia of unspecified degree History of tobacco abuse Z87.891 Opioid abuse F11.10 Chronic constipation K59.09 (1) Murry esophagus Murry's esophagus type: with dysplasia of unspecified degree Qualified Code(s): K22.719 - Murry's esophagus with dysplasia, unspecified
[2022-09-07] MEDS ORDERED: POLYETHYLENE (MIRALAX) 17 GM PACK PO PRN (16:34)
[2022-09-07] MEDS ORDERED: ALUMINUM/MAGNESIUM SUSP 30 ML UDC PO PRN (16:34)
[2022-09-07] MEDS ORDERED: MoRPHine SULFATE 2 MG/ML CARP IV PRN (16:34)
[2022-09-07] MEDS ORDERED: cloNIDine HCL 0.1 MG TAB PO PRN (16:34)
[2022-09-07] MEDS ORDERED: PROMETHAZINE HCL 12.5 MG in SODIUM CHLORIDE 0.9% 50 ML IV PRN (16:34)
[2022-09-07] MEDS ORDERED: ACETAMINOPHEN 500 MG TAB PO PRN (16:34)
[2022-09-07] MEDS ORDERED: ONDANSETRON INJ 2 MG/ML 2 ML VIAL IV PRN (16:34)
[2022-09-07] MEDS: LACTATED RINGER'S 1,000 ML IV SCH (16:56)
[2022-09-07] MEDS: MoRPHine SULFATE 4 MG/ML 1 ML CARP\\VIAL IV PRN ×2 (17:07→21:58)
[2022-09-07 17:22] LABS: Appearance Urine Clear (Clear); Bilirubin Urine Negative (Negative); Blood Urine Negative (Negative); Color Urine Yellow; Glucose Urine UA Negative (Negative); Ketones Urine Negative (Negative); Leukocyte Esterase Urine Negative (Negative); Nitrite Urine Negative (Negative); Protein Urine Negative (Negative); Specific Gravity Urine > 1.045 (1.000-1.030); Urobilinogen Urine Negative (Negative)
[2022-09-07 17:46] LABS: Amphetamines+Metham, Urine Neg (Neg); Barbiturates, Urine Neg (Neg); Benzodiazepine, Urine Neg (Neg); Cocaine, Urine Neg (Neg); MDMA (Ecstacy), Urine Neg (Neg); Methadone, Urine Neg (Neg); Opiate, Urine Pos (Neg); Phencyclidine, Urine Neg (Neg)
[2022-09-07] MEDS: GABAPENTIN 300 MG CAP PO SCH ×2 (18:17→19:49)
[2022-09-07] MEDS ORDERED: NICOTINE 21 MG/24 HR TDSY TD SCH (19:00)
[2022-09-07] MEDS: FLUTICASONE PROPIONATE NA SPR 16 GM BTL SCH (19:49)
[2022-09-07] MEDS ORDERED: FAMOTIDINE 20 MG TAB PO SCH (21:00)
[2022-09-07] MEDS ORDERED: BUPRENORPHINE/NALOXONE 8/2 MG TAB SL SCH (21:00)
[2022-09-07] MEDS: SUCRALFATE 1 GM/10 ML UDC PO PRN (21:16)
[2022-09-08] MEDS: CALCIUM CARBONATE 500 MG CHEWABLE TAB PO PRN ×2 (00:35→07:11)
[2022-09-08] MEDS: LACTATED RINGER'S 1,000 ML IV SCH ×2 (00:39→08:29)
[2022-09-08] MEDS: MoRPHine SULFATE 4 MG/ML 1 ML CARP\\VIAL IV PRN (04:22)
[2022-09-08] MEDS: SUCRALFATE 1 GM/10 ML UDC PO PRN (07:11)
[2022-09-08] MEDS: GABAPENTIN 300 MG CAP PO SCH ×2 (08:01→13:06)
[2022-09-08] MEDS: FLUTICASONE PROPIONATE NA SPR 16 GM BTL SCH (08:02)
[2022-09-08] MEDS ORDERED: CITALOPRAM 40 MG TAB PO SCH (09:00)
[2022-09-08] MEDS ORDERED: BUPRENORPHINE/NALOXONE 8/2 MG TAB SL SCH (09:00)
[2022-09-08] MEDS ORDERED: CYANOCOBALAMIN (B-12) 500 MCG TABLET PO SCH (09:00)
[2022-09-08] MEDS ORDERED: PANTOprazole 40 MG TAB PO SCH (09:00)
[2022-09-08] MEDS ORDERED: lisinopril 20 MG TAB PO SCH (09:00)
--- NOTE | 2022-09-08 12:30 | Discharge Summary ---
Date of Service September 08, 2022 Admission HPI Per Admitting Provider Shahbaz Arechiga is a 56 y/o male with a past medical history esophageal cancer s/p esophagectomy and pull through, prostate cancer, renal cell carcinoma, chronic constipation, chornic nausea/vomiting, chronic abdominal pain, Murry's esophagus GERD, hypertension, iron deficiency anemia presents today with recurrent general abdominal pain and vomiting that began yesterday. He was prescribed Zofran at home which has not helped him as it normally does. His vomit has been yellow in appearance without any blood. He has not had any diarrhea, worsening of his constipation which is chronic, or urinary symptoms. No fever or chills. No recent sick contacts. Abdominal pain feels consistent with his chronic pain, however exacerbated today. On presentation, patient has been mildly hypertensive, otherwise vital signs within normal limits and stable. Labs largely unrevealing, his lipase is mildly elevated to 239 as it has been over the past several months. There are no electrolyte abnormalities, leukocytosis, transaminitis, his renal function is at baseline. CT of the abdomen and pelvis does not show any infectious or inflammatory findings, he is s/p esophagectomy with pull-through procedure, no obstruction seen. S/p left partial nephrectomy, cholecystectomy and prostatectomy. Bladder wall is thickened and trabeculated likely representing chronic outlet obstruction. Principal Diagnosis Acute on chronic abd pain w/ intractable n/v - resolved Discharge Exam GENERAL: 56 yo Well-developed, well-nourished WM. NAD. LUNGS: Clear to auscultation bilaterally. No W/R/R. CARDIOVASCULAR: Regular rate and rhythm. ABDOMEN: Soft, non-tender and non-distended. BS normoactive x 4 quad. EXTREMITIES: No edema. Non-tender. Peripheral pulses +2/4. NEUROLOGIC: A&O x3. Nonfocal PSYCHIATRIC: Cooperative. Appropriate mood and affect. SKIN: Warm, dry, intact. No rashes or lesions. Discharge Data Allergies Allergy/AdvReac Type Severity Reaction Status Date / Time No Known Allergies Allergy Verified 09/07/22 15:45 Consultations 09/07/22 12:52 ED Decision to Admit Stat Ordered Studies Abdomen/Pelvis CT 09/07/22 10:35 CT SCAN OF THE ABDOMEN AND PELVIS WITH IV CONTRAST CLINICAL HISTORY: Generalized abdominal pain. Nausea and vomiting. COMPARISON STUDY: Abdominal CT dated 06/30/2022. TECHNIQUE: Following the IV administration of 94 cc of Optiray 350, CT scan of the abdomen and pelvis is performed from the lung bases to the proximal femora. Images are reviewed in the axial, sagittal, and coronal planes. IV contrast was administered without complication. A dose lowering technique was utilized adhering to the principles of ALARA. CT DOSE: 289.90 mGy.cm FINDINGS: Lung bases: The heart is normal in size and without pericardial effusion. The lung bases are clear noting bibasilar scarring/atelectasis. There is postoperative change from a gastric pull-through procedure. Liver: The contrast-enhanced liver is normal in size, contour, and attenuation. Fatty infiltration is seen adjacent to the gallbladder fossa. There is no intrahepatic biliary ductal dilatation. The hepatic veins and portal veins are patent. Gallbladder: Surgically absent noting clips in the gallbladder fossa. Spleen: Normal in size and attenuation. Pancreas: The pancreas is moderately atrophic. Mild dilatation of the pancreatic duct is similar to previous. Adrenal glands: Unremarkable. Kidneys: The contrast enhanced kidneys are normal in size and without hydronephrosis. The kidneys enhance symmetrically. Partial nephrectomy change is noted in the left lower lobe. Abdominal vasculature: The abdominal aorta is normal in course and caliber noting moderate atherosclerotic calcification. Bowel: There is moderate fecal retention in the right colon. No bowel obstruction is seen. The appendix is well-visualized and normal Peritoneum: There is no intraperitoneal free air or abdominal ascites. Lymphadenopathy: None. Pelvic viscera: The prostate gland is surgically absent. The bladder is distended and the wall appears thickened/trabeculated indicating chronic outlet obstruction. Question mild strandy infiltration. Skeletal structures: The skeletal structures are osteopenic. No lytic or blastic lesions are seen. There is a subacute left anterior 6th rib fracture. IMPRESSION: 1. No acute infectious or inflammatory findings are identified in the abdomen or pelvis. 2. Status post esophagectomy with gastric pull-through procedure. No bowel obstruction is seen. 3. Status post left partial nephrectomy, cholecystectomy, and prostatectomy. 4. The bladder wall appears thickened and trabeculated. This is likely related to chronic outlet obstruction. Correlate with urinalysis. 5. Additional findings as above. ACT 112: Negative or not required by law. Electronically signed by: Param Li M.D. 09/07/2022 11:40 AM Hospital Course (1) Abdominal pain: - Patient has longstanding history of abdominal pain with intractable nausea and vomiting, typically exacerbated due to his chronic constipation. - Lipase of 239 which is elevated degree chronically, his labs and imaging are unremarkable for any acute process. - We will place him on clear liquid diet for now with IVF, antiemetics and analgesics ordered. - He follows with Armando [facility], recently had an enteroscopy on 07/18: * Reflux esophagitis with no bleeding, esophagogastric anastomosis was found, duodenum appeared normal, there is a single nonbleeding angiectasia in the jejunum treated with APC - Abd pain has resolved, diet advanced this AM from clears to regular of which he tolerated (2) Hypertension: - Continue lisinopril. (3) Depression: - Continue Celexa. (4) Murry esophagus: - Continue Pepcid, Carafate. - Takes dexlansoprazole, convert to hospital formulary PPI. (5) History of tobacco abuse: - Nicotine patch ordered. (6) Opioid abuse: - On Suboxone therapy, continue 1 tab twice daily while in hospital. (7) Chronic constipation: - Continue MiraLAX, Motegrity, Linzess. - Chronic Suboxone use likely contributing to constipation Plan Abd pain/n/v has resolved. Pt is tolerating regular diet. 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 No changes made to home meds. Plan d/w Dr. Connor who is in agreement. Total Time Total Time Spent Total Time Spent (In Minutes): <30 minutes Discharge Plan Discharge Items Patient Disposition: Home - Self-Care Reason For Visit: INTRACTABLE NAUSEA, VOMITING, ABDOMINAL PAIN Discharge Diagnosis: abdominal pain Activity: Resume your previous activity Non-emergency contact: Primary Care Provider Call non-emergency contact if: you have any medication questions Follow-up/Referrals: Vivi Beverly MD [Primary Care Provider] - Diet: Regular Addtl Attending Provider Instructions: You were hospitalized with abdominal pain which resolved with pain medications, fluids, and some bowel rest. Your diet has been advanced and you are tolerating it well. You will be discharged home and encourage you to follow up with your established healthcare providers. No changes have been made to your home medications. You can resume taking them as prescribed. If you have any questions/concerns after you are discharged, you may call the nonemergency number listed on your discharge paperwork. In the event of a medical emergency, call 911. Pending Studies at Discharge: No Stand-Alone Forms: My [facility], Smoking Cessation Medications and DC Order Prescriptions: Continued lisinopril 20 mg tablet 20 mg PO QAM Qty: 30 11RF fluticasone propionate 50 mcg/actuation spray,suspension 1 - 2 spray intranasal BID Qty: 16 5RF Rx Instructions: administer into each nostril citalopram 40 mg tablet 40 mg PO DAILY Qty: 30 1RF clonidine HCl 0.1 mg tablet 0.1 mg PO BID PRN (Reason: Anxiety) Qty: 60 3RF nicotine 21-14-7 mg/24 hr patch, TD daily, sequential See Rx Instructions transdermal .COMPLEX Qty: 56 0RF Rx Instructions: apply 1-21 mg NICOTINE PATCH daily for 28 days; follow with 1-14 mg PATCH daily for 14 days, then 1-7mg PATCH daily for 14 days transdermal gabapentin 300 mg capsule 900 mg PO TID Qty: 270 11RF dexlansoprazole 60 mg capsule,biphase delayed releas 60 mg PO DAILY Qty: 90 3RF buprenorphine-naloxone 8-2 mg Tablet, Sublingual 1 tab SUBLINGUAL BID cyanocobalamin (vitamin B-12) 500 mcg Tablet 1,000 mcg PO QAM Qty: 90 3RF Rx Instructions: purchase over the counter Trulance 3 mg tablet 3 mg PO DAILY multivitamin Tablet 1 tab PO DAILY sucralfate 100 mg/mL suspension 1 g PO ACHS PRN (Reason: Acid Reflux) Label Comments: "I only take it at bedtime" famotidine [Pepcid] 40 mg tablet 20 mg PO QPM Motegrity 2 mg tablet 2 mg PO DAILY Discharge Orders: Discharge Order (Routine); Ordered 09/08/22 Ordered By: Beatriz Contreras/Other Patient Handouts: Vomiting Diarrhea Diet Adult Admission Data Admit Date/Time: 09/07/22 13:15 Attending Provider: Hernan Connor Admit Provider: [place] Primary Care Provider: Vivi Beverly Other Providers: [place] Other Interventions: Discharge Summary Assessment (RN) Last Done: 09/08/22 14:20 Supervising Physician Co-Signing Physician Notes I supervised Beatriz Alatorre PA-C on the care of this patient. Patient admitted in the last 24 hours, so I did not see the patient. The plan is as written in her note except for any following changes/exceptions: None Coding Level of Care Code 54539 OBS Care - Discharge Diagnoses Abdominal pain R10.9 Hypertension I10 Depression F32.A Murry esophagus K22.719 Murry's esophagus type: with dysplasia of unspecified degree History of tobacco abuse Z87.891 Opioid abuse F11.10 Chronic constipation K59.09
[2022-09-10 19:11] LABS: Codeine Urine NEGATIVE ng/mL (<50); Hydrocodone Urine NEGATIVE ng/mL (<50); Hydromor Urine NEGATIVE ng/mL (<50); Morphine Urine 2200 ng/mL (<50); Norhydrocodone Conf Ur NEGATIVE ng/mL (<50); Noroxycodone Urine NEGATIVE ng/mL (<50); Oxycodone Urine NEGATIVE ng/mL (<50); Oxymorph Urine NEGATIVE ng/mL (<50)
== END 2022-09-08 14:52 | disposition home or self-care (01) ==
LOC: EDINP 06:43 → ED 06:43 → SUATTDRO 13:15 → EDINP 16:19 → 3N 16:25